=== PATIENT | female | born 1940 | race Caucasian/White ===

== ENCOUNTER 2016-11-30 08:54 | Inpatient (IN) | payer MEDICARE, OTHER ==
[2016-11-26 13:12] VITALS: BMI 27.0
--- NOTE | 2016-11-26 14:04 | PAT Medication Instructions ---
Service Date November 26, 2016. Current Home Medication List Acetaminophen (Tylenol Arthritis Ext Rel), 650 MG PO Q8H PRN for Pain Aspirin (Aspirin Ec), 81 MG PO QAM Calcium Carbonate-Vitamin D (Oscal 500/200 D-3), 1 TAB PO AFTER LUNCH Cholecalciferol (Vitamin D3), 1 TAB PO AFTER LUNCH Fish Oil (Winlock-3), 1 CAP PO Jyxghueizvk-Msxprvoavdm-Pdwqdb (Glucosamine Chondroitin M), 2 TAB PO AFTER LUNCH Lactase (Lactaid Fast Act), 1 TAB PO Levothyroxine Sodium (Levothyroxine Sodium), 1 TAB PO QAM Losartan Potassium & Hydrochlo (Losartan Potassium/Hydroc), 1 TAB PO QAM Multiple Vitamins W/ Minerals (Centrum Silver 50+Women), 1 TAB PO AFTER LUNCH Pantoprazole (Protonix), 40 MG PO QAM Paroxetine (Paxil), 10 MG PO UD Ranitidine Hcl (Zantac), 300 MG PO HS Simvastatin (Zocor), 10 MG PO QPM Tramadol-Acetaminophen (Ultracet), 1 TAB PO [id number] PRN for Pain [Arnica Cream ], Unknown Dose [Winlock Xl], Unknown Dose Medication Instructions For Your Scheduled Surgery - Hold the following medications as of today 11/26/16: Fish Oil (Winlock-3), 1 CAP PO [Winlock Xl], Unknown Dose Jejgamtwgol-Swhrvvvjntf-Xawfqu (Glucosamine Chondroitin M), 2 TAB PO AFTER LUNCH - Hold the following medications 24 hours prior to surgery: [Arnica Cream ], Unknown Dose - Hold the following medications the morning of surgery: Multiple Vitamins W/ Minerals (Centrum Silver 50+Women), 1 TAB PO AFTER LUNCH Losartan Potassium & Hydrochlo (Losartan Potassium/Hydroc), 1 TAB PO QAM Cholecalciferol (Vitamin D3), 1 TAB PO AFTER LUNCH Lactase (Lactaid Fast Act), 1 TAB PO Calcium Carbonate-Vitamin D (Oscal 500/200 D-3), 1 TAB PO AFTER LUNCH - Take the following medications the morning of surgery with a sip of water OTHERWISE NOTHING TO EAT OR DRINK AFTER MIDNIGHT: Acetaminophen (Tylenol Arthritis Ext Rel), 650 MG PO Q8H PRN for Pain (may take if needed up to 4 hours prior to surgery) Tramadol-Acetaminophen (Ultracet), 1 TAB PO [id number] PRN for Pain (may take if needed up to 4 hours prior to surgery) Pantoprazole (Protonix), 40 MG PO QAM Levothyroxine Sodium (Levothyroxine Sodium), 1 TAB PO QAM Aspirin (Aspirin Ec), 81 MG PO QAM Paroxetine (Paxil), 10 MG PO UD - Take the following medications as scheduled the night before surgery: Acetaminophen (Tylenol Arthritis Ext Rel), 650 MG PO Q8H PRN for Pain Ranitidine Hcl (Zantac), 300 MG PO HS Simvastatin (Zocor), 10 MG PO QPM If you have any questions please call us at [phone] or [phone] or [phone]
[2016-11-26 14:17] LABS: BASO % 0.5 %; BASO ABS # 0.03 K/uL (0-0.2); COMPLETE YES; EOS % 3.8 %; HEMATOCRIT 36.2 % (37-47); IG% 0.4 %; LYMPH ABS # 0.94 K/uL (1.2-3.4); MEAN CELL VOLUME 85.2 fL (80-100); MEAN CORPUSCULAR HEMOGLOBIN 27.3 pg (25-34); MEAN PLATELET VOLUME 9.6 fL (7.4-10.4); MONO % 8.2 %; NEUT % 70.1 %; PLATELET COUNT 292 K/uL (130-400); RED BLOOD COUNT 4.25 M/uL (4.2-5.4); WHITE BLOOD COUNT 5.52 K/uL (4.8-10.8)
[2016-11-26 14:27] LABS: INR 0.9 (0.9-1.1)
[2016-11-26 15:51] LABS: BUN/CREATININE RATIO 17.1 (10-20); CALCIUM 9.5 mg/dl (8.5-10.1); CREATININE 0.94 mg/dl (0.60-1.20); POTASSIUM 4.1 mmol/L (3.5-5.1)
--- NOTE | 2016-11-27 23:16 | HISTORY & PHYSICAL EXAMINATION ---
DATE OF ADMISSION: 11/30/2016 CHIEF COMPLAINT: Left knee pain. HISTORY OF PRESENT ILLNESS: A 76-year-old white female, long-term patient of my partner Dr. Sorto; who presents for surgical treatment of her left knee. She has got a long history of left knee pain and discomfort. I saw her a couple of years ago and we discussed treatment options. She has been through extensive conservative treatment. Most of her pain is medial and anteromedial side of her knee. The more she walks, the more it hurts. The shots have provided very minimal relief recently. She has become more debilitated by the pain. She has a limited walking tolerance. She would like to have her left knee fixed surgically. PAST MEDICAL HISTORY: 1. Hypertension. 2. Elevated cholesterol. 3. Anxiety/depression. 4. Hypothyroidism. 5. Gastroesophageal reflux disease. 6. Mild obesity. PAST SURGICAL HISTORY: 1. Cholecystectomy. 2. Right knee scope. 3. Tonsillectomy. 4. Cataract removal. ALLERGIES: LATEX WHICH CAUSES A RASH. ALSO, DESCRIBES ALLERGY TO NOVOCAIN, BUT JUST THAT IT HAS PROLONGED ANESTHETIC EFFECTS. No adverse or allergic reaction. CURRENT MEDICINES: 1. Levothyroxine 50 mcg in the morning. 2. Pantoprazole 40 mg p.o. before breakfast. 3. Losartan/hydrochlorothiazide 50/12.5 once a day. 4. Simvastatin 10 mg at bedtime. 5. Ranitidine 300 mg at bedtime. 6. Paroxetine 10 mg in the morning. 7. Tramadol for pain. 8. Aspirin 81 mg. 9. Tylenol Arthritis. 10. Centrum Silver. 11. Oscal. 12. Vitamin D3. 13. Unspecified medicine. 14. [place] XL. SOCIAL HISTORY: A 76-year-old female, she is . Her is undergoing some medical evaluation for dizziness. FAMILY HISTORY: Noncontributory. REVIEW OF SYSTEMS: Negative for diabetes, neurologic problems, vascular problems, bleeding disorders. Denies any chest pain or shortness of breath. No history of DVT or PE. PHYSICAL EXAMINATION: GENERAL: Reveals a healthy pleasant elderly female. She looks younger than her stated age. HEENT: Benign. NECK: Supple. No lymphadenopathy. LUNGS: Clear to auscultation. HEART: Regular rate and rhythm. ABDOMEN: Soft, nontender, nondistended. EXTREMITIES: Grossly neurovascularly intact except as follows: Examination of the left knee reveals patient walks with slightly antalgic gait. She has got varus alignment to her left knee. She has got bony hypertrophy medially. Range of motion is 5-120. No instability. Small knee effusion. X-RAY: X-rays of the left knee reviewed. It shows advanced left knee DJD. She has complete loss of her medial joint space. She has got osteophytes particularly in the medial femoral condyle and medial tibial plateau. She has got some chondrocalcinosis laterally. She does have degenerative changes in all 3 compartments. ASSESSMENT: A 76-year-old white female with advanced left knee degenerative joint disease. She has failed conservative treatment and would like to proceed with knee replacement. PLAN: We are going to take her to the operating room and do left knee replacement. The risks and benefits of this procedure were explained to patient including but not limited to DVT, PE, , infection, neurologic injury, vascular injury, bleeding problem, pain, limited range of motion, stiffness, failure to relief symptoms, incomplete relief of symptoms, need for further surgery in the future, fracture, leg length inequality, nerve palsy, persistent pain, etc. The patient understands and desires to proceed. Informed consent was obtained. As far as discharge plans, she is planning to be discharged to home. Her can assist in her care and she will use [facility]. I did talk to her about trying to limit her tramadol use. KADID
[~2016-11-30] VITALS: Ht 160 cm; Wt 70.4 kg
[2016-11-30] VITALS (8 sets, daily range): BP systolic 115–195; BP diastolic 63–77; PULSE 50–63; TEMP 36.4–37.7; O2SAT 96–100; Ht 160 cm; Wt 70.4 kg
[~2016-11-30 08:54] MED LIST: ACET1TAB84 PO; ACETAMINOPHEN 500 MG TAB PO SCH; ARNICA; ASPI81TA28 PO; BUPIVACAINE 0.25% 30 ML VIAL ONE; BUPIVACAINE 0.5 % 5 MG/1 ML PF 10ML VIAL ONE; BUPIVACAINE LIPOSOME 266 MG, BUPIVACAINE/EPINEPHRINE INJ 50 ML, SODIUM CHLORIDE 0.9% PF... INFIL SCH; CALC200T PO; CEFAZOLIN 2000 MG/60 ML D5W 60 ML IV SCH; FAMOTIDINE 20 MG TAB PO SCH; GABAPENTIN 300 MG CAP PO SCH; GLUCTAB54 PO; LACTATED RINGER'S 1000ML 1,000 ML IV SCH; LACTATED RINGER'S 1000ML 500 ML IV ONE; LACTATED RINGER'S 1000ML IV SCH; LEVO50TA6 PO; LOSA100T30 PO; METOCLOPRAMIDE HCL 10 MG TAB PO SCH; MULT-1092 PO; OMEG10007 PO; OMEGA XL; PANT40TA PO; PARO1TAB27 PO; RANI300T2 PO; SCOPOLAMINE 1.5 MG TDSY TD SCH; SIMV10TA2 PO; TRAM37.52 PO; TRANEXAMIC ACID INJ 1,000 MG in SODIUM CHLORIDE 0.9% 100ML 100 ML IV SCH; VTMD1000 PO; [UNRECOGNIZED DRUG - CODE] PO
--- NOTE | 2016-11-30 10:53 | History & Physical Bridge Note ---
H&P Re-Evaluation Bridge Note: I have examined the patient, reviewed the History & Physical and in the interval since the performance of the History & Physical I have noted the following changes of clinical significance: No changes noted
[2016-11-30] MEDS ORDERED: MIDAZOLAM HCL 1 MG/ML 2ML VIAL ONE ×3 (11:53→14:00)
[2016-11-30] MEDS ORDERED: FENTANYL CITRATE INJ 50 MCG/1 ML 2 ML VIAL ONE (11:54)
[2016-11-30] MEDS ORDERED: SODIUM CHLORIDE 0.9% PF 50 ML VIAL ONE (12:48)
[2016-11-30] MEDS ORDERED: BACITRACIN 50000 UNIT VIAL ONE (12:48)
[2016-11-30] MEDS ORDERED: BUPIVACAINE/EPINEPHRINE 0.25% 1:200,000 30 ML VIAL ONE (12:48)
[2016-11-30] MEDS ORDERED: BUPIVACAINE LIPOSOME 1/3% 266 MG/20 ML VIAL INFIL ONE (12:48)
[2016-11-30] MEDS ORDERED: HYDROmorphone INJ 2 MG/ML SYR/VIAL IV PRN (13:00)
[2016-11-30] MEDS ORDERED: EpHEDrine SULFATE INJ 50 MG/ML AMP IV PRN (13:00)
[2016-11-30] MEDS ORDERED: ATROPINE SULFATE 0.1 MG/ML 5ML SYR IV PRN (13:00)
[2016-11-30] MEDS ORDERED: PHENYLEPHRINE 100MCG/ML 5ML SYR IV PRN (13:00)
[2016-11-30] MEDS ORDERED: ONDANSETRON INJ 2 MG/ML 2 ML VIAL IV PRN ×2 (13:00→14:45)
--- NOTE | 2016-11-30 14:41 | [facility] Post Operative Brief Note ---
Immediate Operative Summary Operative Date November 30, 2016. Pre-Operative Diagnosis Left Knee Degenerative Joint Disease Post-Operative Diagnosis Same as preop Procedure(s) Performed Left Total Knee Arthroplasty Surgeon Dr. Rodriguez Director Cardiology Surgeon(s) Carson Pennington PA-C Estimated Blood Loss 50 ml Findings Left Knee DJD Fluids (cc crystalloids) 900 cc Specimens A. Left Knee Bone and Tissue Drains None Anesthesia Spinal Complication(s) None Disposition Recovery Room / PACU
[2016-11-30] MEDS ORDERED: MAGNESIUM HYDROXIDE SUSP 30 ML UDC PO PRN (14:45)
[2016-11-30] MEDS ORDERED: METOCLOPRAMIDE HCL INJ 5 MG/ML 2 ML VIAL IV PRN (14:45)
[2016-11-30] MEDS ORDERED: BISACODYL 10 MG SUPP PR PRN (14:45)
[2016-11-30] MEDS ORDERED: ALUMINUM/MAGNESIUM/SIMETH (MAALOX MAX) 30 ML UDC PO PRN (14:45)
[2016-11-30] MEDS ORDERED: CALCIUM CARBONATE VITAMIN D PO SCH (14:45)
[2016-11-30] MEDS ORDERED: SILVER SULFADIAZINE 1% CR 50 GM JAR EXT PRN (14:45)
[2016-11-30] MEDS ORDERED: HYDROmorphone INJ 1 MG/ML SYR IV PRN (14:45)
[2016-11-30] MEDS ORDERED: ZOLPIDEM TARTRATE 5 MG TAB PO PRN (14:45)
[2016-11-30] MEDS ORDERED: PAROXETINE 20 MG TAB PO PRN (14:45)
--- NOTE | 2016-11-30 15:19 | DIAGNOSTIC IMAGING REPORT ---
LEFT KNEE 1 OR 2 VIEWS ROUTINE CLINICAL HISTORY: AP/LATERAL IN PACU LEFT KNEE joint replacement COMPARISON: None. DISCUSSION: Evidence for a total left knee replacement. Good contact between prosthetic and underlying bone. Expected postoperative soft tissue change. IMPRESSION: Anatomic alignment status post total left knee replacement Electronically signed by: Ramana Montoya M.D. 11/30/2016 3:18 PM Dictated Date/Time: 11/30/2016 3:17 PM
--- NOTE | 2016-11-30 15:19 | Anesthesiology Progress Note ---
Anesthesia Post Op Note Date & Time November 30, 2016 at 15:19 Vital Signs Pain Intensity: 0 Vital Signs Past 12 Hours Date Time Temp Pulse Resp B/P Pulse Ox O2 Delivery O2 Flow Rate FiO2 11/30/16 15:05 49 13 148/68 100 Nasal Cannula 2 11/30/16 14:55 64 20 133/48 99 Mask 10 11/30/16 14:48 36.3 44 14 156/64 99 Mask 10 11/30/16 09:25 36.7 60 20 195/67 98 Room Air Notes Mental Status: alert / awake / arousable, participated in evaluation Pt Amnestic to Procedure: Yes Nausea / Vomiting: adequately controlled Pain: adequately controlled Airway Patency, RR, SpO2: stable & adequate BP & HR: stable & adequate Hydration State: stable & adequate Neuraxial Anesthesia: was administered, sensory block is resolving Anesthetic Complications: no major complications apparent
[2016-11-30] MEDS: CHECK SCOPOLAMINE PATCH PLACEMENT SCH (16:02)
[2016-11-30] MEDS: D5W AND 1/2NSS + 20MEQ KCL 1,000 ML IV SCH (16:13)
[2016-11-30] MEDS ORDERED: PNEUMOCOCCAL POLYSACCHARIDES 25 MCG/0.5 ML VIAL/SYR IM. ONE (17:15)
[2016-11-30] MEDS ORDERED: PNEUMOCOCCAL ADMINISTRATION CHARGE ONE (17:15)
[2016-11-30] MEDS: FERROUS GLUCONATE 324 MG TAB PO SCH (17:51)
[2016-11-30] MEDS: KETOROLAC TROMETHAMINE 15 MG/ML VIAL IV. SCH (17:51)
[2016-11-30] MEDS: ACETAMINOPHEN 500 MG TAB PO SCH (17:52)
--- NOTE | 2016-11-30 18:14 | OPERATIVE REPORT ---
DATE OF OPERATION: 11/30/2016 SURGEON: Isiah Rodriguez MD ELEMENTARY SUPERVISOR: ANA Celis PREOPERATIVE DIAGNOSIS: Left knee degenerative joint disease. POSTOPERATIVE DIAGNOSIS: Same. PROCEDURE PERFORMED: Left cemented posterior stabilized total knee arthroplasty. COMPLICATIONS: None. ESTIMATED BLOOD LOSS: 50 mL. FLUID REPLACEMENT: 900 mL crystalloid fluid replacement. TOURNIQUET TIME: 55 minutes at 300 mmHg. ANESTHESIA: Spinal with adductor canal block. DRAINS: None. SPECIMENS: Left knee sent for pathology. OPERATIVE INDICATIONS: The patient is a 76-year-old very active female who has had a long history of left knee pain and discomfort. She has been treated by my partner Dr. Sorto over the years with medicines and injections. This became less successful over time. She has been more debilitated by her knee. She had x-rays which showed advanced arthritis and she elected to proceed with operative treatment. OPERATIVE FINDINGS: Operative findings revealed advanced left knee DJD. She had grade 4 lhui-oy-bnja disease of the entire medial compartment as well as the patellofemoral compartment. She did have fairly spotty grade 3 and 4 changes in the lateral compartment. She did have very rotated femur with a very large lateral trochlear groove. She had a large knee joint effusion and very osteoporotic cancellous bone. OPERATIVE IMPLANTS: Operative implants consisted of: 1. A Biomet Vanguard size 67.5 left posterior stabilized femoral component. 2. A Biomet size 67 tibial tray. 3. A 10 mm posterior stabilized polyethylene bearing. 4. A 31 x 8 all poly patella. OPERATIVE PROCEDURE: The patient was taken to the operating room, identified and placed on the operating table in supine position. All contact areas were appropriately padded. IV antibiotics were provided by anesthesia team. A spinal anesthetic and adductor canal block had been provided in the holding area. Garzon catheter was placed in sterile fashion. Left thigh tourniquet was then placed and left lower extremity was then prepped and draped in the usual sterile fashion. The left leg was elevated and exsanguinated with Esmarch and tourniquet was placed at 300 mmHg. An anterior approach of the left knee was then performed through a longitudinal incision centered over the patella. Sharp dissection was carried out through the subcutaneous tissues down to the level of the extensor mechanism. A medial parapatellar arthrotomy incision was made. Some subperiosteal dissection was carried out medially. The fat pad was resected from beneath the patellar tendon. The lateral patellofemoral ligament was released. The patella was everted and knee was flexed. The osteophytes were taken off the distal femur. The ACL and PCL were then released from the distal femur and the tibia subluxated anteriorly. The external tibial alignment jig was then placed in the anterior face of the tibia and adjusted 14 mm medially. Proximal tibial cut was made to remove about 2 mm of bone from the most deficient aspect of the medial tibial plateau. The tibia was then sized to a size 67. Her bone was pretty osteoporotic. We did remove some medial and posteromedial osteophytes. Attention was then drawn to the femur. The distal femur was entered with a sharp drill bit. Intramedullary canal was suctioned. A left 5 degree valgus cutting guide was placed. The distal femoral cutting block was pinned in place. Distal femoral cut was made to take an additional 3 mm of bone off the distal femur. The femur was then sized to a size 67.5. We did downsize this almost the entire size due to very narrow medial and lateral dimensions of the femur. The AP cutting guide was then placed. Femur was fairly rotated and placed to about 8 degrees of external rotation and brought out through the posterior condyles. The anterior cut, anterior chamfer, posterior cut, posterior chamfer cuts were made. Box cutting guide was placed and adjusted slightly lateral and the box cut was made. The knee was flexed. The remnants of the medial and lateral menisci were excised. The osteophytes were taken off the posterior aspect of the femur. Trial femoral component was placed. Tibial tray was pinned in maximum external rotation and drill and stem punch were used to create defect in proximal tibia for the tibial tray. The knee was then trialed and a 10 mm insert fit most appropriately. I did try the 12, but it was just a little bit tight in extension particularly. Attention was then drawn to the patella. The patella was cleaned of all soft tissues. Patella thickness measured 20 mm in thickness and was cut down to 13. It was sized to a size 31 patella. Lug holes were drilled for a 31 patella. The lateral osteophyte was removed. Patella button was placed. Knee was taken through range of motion and the patella tracked nicely with no thumbs test. Attention was then drawn toward placement of permanent components. All trial components were removed. A bone plug was placed in the distal femur to limit blood loss. A double batch of Palacos G cement was mixed. A left size 67.5 posterior stabilized femoral component, a size 67 tibial tray, a 10 mm posterior stabilized polyethylene insert, and a 31 x 8 all poly patella then cemented in place. Knee was brought out into full extension until cement hardened. A final cement check was then performed. Pericapsular tissues were injected with 100 mL of a combination of 20 mL of Exparel, 30 mL of normal saline, 50 mL of 0.25% Marcaine with epinephrine. The patient did receive 1 gram of tranexamic acid. The tourniquet was then let down for final tourniquet time of 55 minutes. Hemostasis was assured with use of electrocautery. The extensor mechanism was then closed with a combination of #1 PDS suture and #1 Vicryl suture in a [id number] fashion. Extensor mechanism was checked and found to be intact. Subcutaneous tissues were then closed with 2-0 Dexon suture in a buried interrupted fashion. Skin was closed skin maulik. Leg was then cleaned and dried and a sterile dressing of Xeroform, 4 x 4, sterile cast padding was applied. The patient was then transferred to the recovery room in stable condition. The patient tolerated the procedure well with no complications. All needle and sponge counts were correct at the end of the operation. I attest to the content of the Intraoperative Record and any orders documented therein. Any exceptio ns are noted below.
[2016-11-30] MEDS ORDERED: TRANEXAMIC ACID INJ 1,000 MG in SODIUM CHLORIDE 0.9% 100ML 100 ML IV SCH (20:00)
[2016-11-30] MEDS: ASPIRIN 325 MG ECTAB PO SCH (21:01)
[2016-11-30] MEDS: SIMVASTATIN 10 MG TAB PO SCH (21:02)
[2016-11-30] MEDS: DOCUSATE SODIUM 100 MG CAP PO SCH (21:02)
[2016-11-30] MEDS: CEFAZOLIN IV 1,000 MG in DEXTROSE 5% 50ML 50 ML IV SCH (21:37)
[2016-12-01] MEDS: CHECK SCOPOLAMINE PATCH PLACEMENT SCH ×3 (00:07→15:54)
[2016-12-01] MEDS: ACETAMINOPHEN 500 MG TAB PO SCH ×3 (01:34→17:53)
[2016-12-01] MEDS: D5W AND 1/2NSS + 20MEQ KCL 1,000 ML IV SCH ×2 (01:34→12:00)
[2016-12-01 03:55] VITALS: BP 116/72; PULSE 55; TEMP 36.8; O2SAT 97
[2016-12-01] MEDS: LEVOTHYROXINE 50 MCG TAB PO SCH (06:05)
[2016-12-01] MEDS: CEFAZOLIN IV 1,000 MG in DEXTROSE 5% 50ML 50 ML IV SCH (06:05)
[2016-12-01] MEDS: KETOROLAC TROMETHAMINE 15 MG/ML VIAL IV. SCH ×4 (06:05→17:52)
[2016-12-01 07:32] LABS: HEMATOCRIT 29.8 % (37-47); MEAN CELL VOLUME 85.6 fL (80-100); MEAN CORPUSCULAR HEMOGLOBIN 27.3 pg (25-34); MEAN CORPUSCULAR HGB CONC 31.9 g/dl (32-36); PLATELET COUNT 231 K/uL (130-400); RED BLOOD COUNT 3.48 M/uL (4.2-5.4); WHITE BLOOD COUNT 8.46 K/uL (4.8-10.8)
[2016-12-01 07:55] VITALS: BP 110/83; PULSE 64; TEMP 36.5; O2SAT 96
[2016-12-01 08:05] LABS: BUN/CREATININE RATIO 14.8 (10-20); CREATININE 1.1 mg/dl (0.60-1.20); POTASSIUM 4.1 mmol/L (3.5-5.1)
[2016-12-01 08:18] LABS: CALCIUM 8.1 mg/dl (8.5-10.1)
--- NOTE | 2016-12-01 08:43 | PROGRESS NOTE ---
DATE: 12/01/2016 DATE: 12/01/2016. SUBJECTIVE: A 76-year-old white female postop day 1 from a left knee replacement. She is doing quite well. Pain is controlled. She is getting around the room reasonably well. Denies any chest pain or shortness of breath. OBJECTIVE: VITAL SIGNS: Temperature is 36.5. Vital signs stable. PHYSICAL EXAMINATION: GENERAL: Healthy, pleasant, elderly female. She was walking out of the bathroom to sit in a chair when I saw her and doing pretty well with a walker. LUNGS: Clear to auscultation. HEART: Regular rate and rhythm. ABDOMEN: Soft, nontender, nondistended. EXTREMITY EXAMINATION: Grossly neurovascularly intact except as follows: Examination of the left lower extremity reveals the dressing to be clean, dry and intact. She can do a straight leg raise with little bit of a lag. She can dorsiflex and plantarflex her foot appropriately. She is neurologically intact. LABORATORY DATA: Hemoglobin 9.5. Hematocrit 29.8. Electrolytes are stable. ASSESSMENT: A 76-year-old white female postop day 1 from a left knee replacement, doing pretty well. Pain is controlled. She is getting around quite well. She is anemic, but asymptomatic. PLAN: 1. DVT prophylaxis including thigh-high TEDs, SCDs, and aspirin twice a day. 2. PT and OT. Weight bear as tolerated. Left total knee protocol. 3. Pain control. Doing pretty well with current pain regimen. 4. Disposition. She is hoping to be discharged to home with some home health once adequately recovered.
[2016-12-01] MEDS ORDERED: PANTOprazole SOD 40 MG TAB PO SCH (09:00)
[2016-12-01] MEDS: DOCUSATE SODIUM 100 MG CAP PO SCH ×2 (09:10→20:14)
[2016-12-01] MEDS: FERROUS GLUCONATE 324 MG TAB PO SCH ×3 (09:10→17:52)
[2016-12-01] MEDS: ASPIRIN 325 MG ECTAB PO SCH ×2 (09:11→20:16)
[2016-12-01] MEDS: CHOLECALCIFEROL 1000 INTER.UNIT TAB PO SCH (09:11)
[2016-12-01] MEDS: MULTIVITAMIN TAB PO SCH (09:11)
[2016-12-01] MEDS: CEROVITE ADV FORMULA TAB PO SCH (09:12)
[2016-12-01] MEDS: PANTOprazole SOD 40 MG TAB PO SCH (09:12)
[2016-12-01 10:02] VITALS: O2SAT 93
[2016-12-01 11:45] VITALS: BP 132/55; PULSE 72; TEMP 36.6; O2SAT 99
[2016-12-01] MEDS ORDERED: NURSING VERBAL MED ORDER ONE (14:00)
[2016-12-01 15:16] VITALS: BP 128/64; PULSE 72; TEMP 36.6; O2SAT 98
[2016-12-01] MEDS: TRAMADOL HCL 50 MG TAB PO PRN ×2 (15:53→20:13)
[2016-12-01] MEDS: SIMVASTATIN 10 MG TAB PO SCH (20:16)
[2016-12-01] MEDS ORDERED: RANITIDINE HCL 150 MG TAB PO SCH (21:00)
[2016-12-01] MEDS ORDERED: ULT50X PO (21:06)
[2016-12-01] MEDS ORDERED: FRRG PO (21:06)
[2016-12-01] MEDS ORDERED: ACET-1138 PO (21:06)
[2016-12-01] MEDS ORDERED: ASPEC325 PO (21:06)
--- NOTE | 2016-12-01 21:09 | Discharge Instructions ---
Discharge Instructions Date of Service December 01, 2016. Admission Reason for Admission: Left Knee Degenerative Joint Disease Discharge Discharge Diagnosis / Problem: Left Knee Replacement Discharge Goals Goal(s): Decrease discomfort, Improve function, Increase independence, Improve disease control, Therapeutic intervention Activity Recommendations Activity Limitations: per Instructions/Follow-up section Weightbearing Status: Left weightbearing . Instructions / Follow-Up Instructions / Follow-Up ACTIVITY RECOMMENDATIONS: Physical Therapy: * You will go to physical therapy three times each week for four to six weeks after your surgery in order to regain your knee range of motion and to retrain your knee to work properly. * It is just as important to make sure you are getting your knee perfectly straight as it is to regain your knee bend. * Taking a pain pill an hour before therapy can help you have a more productive and comfortable therapy session. Home Exercise: * You were shown a series of exercises (heel props, heel slides, etc.) in the hospital. Do these exercises three to four times each day including the exercises you were shown in physical therapy. Walking: * Get up and walk several times each day. For the first four weeks, try not to stand or walk for more than one hour at a time. If you do stand or walk for more than one hour, you will not hurt anything, but your knee and leg will likely swell. * As you feel comfortable, you may change from the walker or crutches to a cane and then to independent walking. MEDICATIONS: New Medicine: * You will likely be taking one or more of these medications: 1. Tramadol - A quick and shorter-acting pain medication. Take one to two tablets every four to six hours to lessen your pain. 2. Iron Sulfate - Take three times each day for the month after surgery to help you replace the blood lost during surgery. 3. Aspirin - Thins your blood to lessen the chance of forming a blood clot. * The most common side effects of pain medicine and iron are nausea and constipation. If nausea or constipation is too much of a problem or if you have any questions about your new medicines or doses, call [facility] at . We will try to help you manage these issues. VERY IMPORTANT TO READ AND REVIEW" Pain: * The immediate post-operative period after knee replacement surgery is often quite painful. * You are given a prescription for pain medicine. You should take it, as directed, when you need it, especially before physical therapy and before going to bed. Pain that interferes with sleep is very common and can last several months. * You will likely need pain medicine for the first four to six weeks. It will not stop all of the pain. The pain will lessen and as you feel better, you may change to milder pain medicine such as Tylenol. * The most common side effects of pain medicine are nausea and constipation, so don't take more than you need. SPECIAL CARE INSTRUCTIONS: TEDs/Elastic Stockings: * The white elastic stockings help limit swelling and prevent blood clots from forming in your legs. The more you wear them, the more they work. * Wear them for six weeks after knee replacement surgery and four weeks after partial knee replacement. Prevention of Infection: * Take antibiotics one hour before any dental cleaning, dental work, urological procedure, gastrointestinal procedure or any invasive surgery in order to prevent your new joint from getting infected. * You may get the antibiotics from the doctor performing the procedure or you may call our office at before and we will call in a prescription to the pharmacy of your choice. Things to Watch For: * Drainage from the incision site that occurs more than one week after your surgery. * Severely increased knee/leg pain or swelling. * Increased redness at the incision site. * Fever above 102 degrees Fahrenheit. * Unusual chest pain or shortness of breath. * Unusual pain or burning with urination. Call [facility] at with any of the above problems or if you have any questions about your medicines or recovery. FOLLOW UP VISIT: Make an appointment to see your doctor for approximately two weeks after surgery for a progress check and staple removal by calling the office at . Current Hospital Diet Patient's current hospital diet: Regular Diet Discharge Diet Recommended Diet: Regular Diet Procedures Procedures Performed: Left Total Knee Arthroplasty Pending Studies Studies pending at discharge: no Medical Emergencies . Who to Call and When: Medical Emergencies: If at any time you feel your situation is an emergency, please call [phone] immediately. . Non-Emergent Contact Non-Emergency issues call your: Surgeon . "Provider Documentation" section prepared by Isiah Rodriguez. . VTE Core Measure Inpt VTE Proph given/why not?: Other Anticoagulation, T.E.D. Stockings, SCD's
[2016-12-01 23:05] VITALS: BP 152/79; PULSE 83; TEMP 37; O2SAT 98
[2016-12-02] MEDS: CHECK SCOPOLAMINE PATCH PLACEMENT SCH
[2016-12-02] MEDS: KETOROLAC TROMETHAMINE 15 MG/ML VIAL IV. SCH ×2 (00:09→06:02)
[2016-12-02] MEDS: ACETAMINOPHEN 500 MG TAB PO SCH ×2 (02:00→10:22)
[2016-12-02 05:55] VITALS: BP 117/69; PULSE 77; TEMP 36.7; O2SAT 98
[2016-12-02] MEDS: LEVOTHYROXINE 50 MCG TAB PO SCH (06:02)
[2016-12-02] MEDS: CHOLECALCIFEROL 1000 INTER.UNIT TAB PO SCH (08:27)
[2016-12-02] MEDS: PANTOprazole SOD 40 MG TAB PO SCH (08:27)
[2016-12-02] MEDS: FERROUS GLUCONATE 324 MG TAB PO SCH (08:27)
[2016-12-02] MEDS: DOCUSATE SODIUM 100 MG CAP PO SCH (08:28)
[2016-12-02] MEDS: CEROVITE ADV FORMULA TAB PO SCH (08:30)
[2016-12-02] MEDS: MULTIVITAMIN TAB PO SCH (08:30)
[2016-12-02] MEDS ORDERED: HCTZ PO SCH (09:00)
[2016-12-02] MEDS ORDERED: LOSARTAN PO SCH (09:00)
--- NOTE | 2016-12-02 09:22 | PROGRESS NOTE ---
DATE: 12/02/2016 SUBJECTIVE: A 76-year-old white female postop day #2 from a left knee replacement. She is doing pretty well. She feels like she overdid a little bit yesterday and more sore last night, but doing better this morning. No chest pain or shortness of breath. Not feeling dizzy or lightheaded. OBJECTIVE: VITAL SIGNS: Temperature 36.7. Vital signs stable. PHYSICAL EXAMINATION: GENERAL: Shows a pleasant elderly female. She is sitting up in bed and looks pretty comfortable. LUNGS: Clear to auscultation. HEART: Regular rate and rhythm. ABDOMEN: Soft, nontender, and nondistended. EXTREMITIES: Grossly neurovascularly intact except as follows: Examination of the left lower extremity reveals the dressing to be clean, dry and intact. Maybe just a trace bit of bloody drainage. She can dorsiflex and plantarflex her foot appropriately. Her thigh is soft and supple. Calf is soft and supple. ASSESSMENT: A 76-year-old white female postop day #2 from a left knee replacement, doing pretty well. Pain seems to be controlled. A little bit of bloody drainage, which is not expected. She is neurologically intact. PLAN: 1. DVT prophylaxis including thigh-high TEDs, SCDs, and aspirin twice a day. 2. PT/OT. Weightbearing as tolerated. Left total knee protocol. 3. Pain control, doing pretty well with current pain regimen. 4. Disposition: Plan to discharge to home with some home health once adequately recovered.
[2016-12-02] MEDS: ASPIRIN 325 MG ECTAB PO SCH (10:18)
[2016-12-02] MEDS ORDERED: ACETAMINOPHEN 500 MG TAB PO ONE (10:22)
[2016-12-02 11:02] VITALS: BP 117/69; PULSE 77; TEMP 36.7; O2SAT 98
--- NOTE | 2016-12-06 15:26 | DISCHARGE SUMMARY ---
ADMITTING PHYSICIAN AND SURGEON: Dr. Rodriguez. ADMITTING DIAGNOSIS: Left knee degenerative joint disease. SURGERY PERFORMED: Left total knee arthroplasty. SECONDARY DIAGNOSES: Hypertension, elevated cholesterol, anxiety, depression, hypothyroidism, gastroesophageal reflux disease, mild obesity. CONSULTS: None obtained. HISTORY AND PHYSICAL EXAMINATION: Well documented in the patient's chart. HOSPITAL COURSE: The patient was admitted on 11/30/2016 underwent total knee arthroplasty, tolerated the procedure well. There were no complications and transferred to the PACU postoperatively and later to the orthopedic floor for further care. She was given Ancef for antibiotic prophylaxis, JOSE stockings, SCDs and aspirin for DVT prophylaxis. Hemoglobin, hematocrit and vital signs were monitored during her hospital stay and remained stable. She developed some postoperative anemia, did not require any blood transfusions. There were no complications. By postoperative day 2, she was tolerating a regular diet. Pain was controlled with oral pain medicine. She was participating in physical therapy and had no signs or symptoms of deep vein thrombosis. On postoperative day 2, she was discharged home and set up with home health services, given printed discharge instructions including extra strength Tylenol, aspirin 325 mg b.i.d., iron supplement and tramadol. Continue home medications except for the home dose of aspirin and tramadol, which were changed. Continue physical therapy, weightbearing as tolerated. JOSE stockings. Follow up with Dr. Rodriguez in 10-12 days or sooner if there are any problems or concerns.
[2017-04-16] MEDS ORDERED: LACT9000 PO (09:38)
[2017-04-16] MEDS ORDERED: ACET-1256 PO (09:38)
[2017-04-16] MEDS ORDERED: HYZ/50125 PO (09:38)
[2017-04-16] MEDS ORDERED: CYAN10005 PO (09:38)
[2017-04-16] MEDS ORDERED: TRAMTAB5 PO (09:38)
[2017-04-16] MEDS ORDERED: [UNRECOGNIZED DRUG - CODE] PO (09:38)
[2017-04-16] MEDS ORDERED: PARO1TAB27 PO (09:38)
[2017-04-16] MEDS ORDERED: ASPCH81X PO (09:38)
== END 2016-12-02 11:54 | disposition home health service (06) | DRG 470 ==
LOC: ENRESERVDT → ENRESERVTM → C.ACU 08:54 → C.MSW 14:46
PROVIDERS: ADMIT Orthopaedic Surgery Sports Medicine; ATTEND Orthopaedic Surgery Sports Medicine
PROC: 0SRD0J9 Replacement of Left Knee Joint with Synthetic Substitute, Cemented, Open Approach (ICD-10-PCS; principal; 2016-11-30 11:00)
DX: M17.12 Unilateral primary osteoarthritis, left knee (principal); I10 Essential (primary) hypertension; K21.9 Gastro-esophageal reflux disease without esophagitis; E03.9 Hypothyroidism, unspecified; F32.9 Major depressive disorder, single episode, unspecified; Z79.82 Long term (current) use of aspirin; Z79.899 Other long term (current) drug therapy

== ENCOUNTER → 2017-01-02 | Outpatient (CLI) | payer MEDICARE ==
[~2017-01-02] MED LIST changes: +ACET-1138 PO; +ACET-1256 PO; -ACETAMINOPHEN 500 MG TAB PO SCH; +ASPCH81X PO; +ASPEC325 PO; -ASPI81TA28 PO; -BUPIVACAINE 0.25% 30 ML VIAL ONE; -BUPIVACAINE 0.5 % 5 MG/1 ML PF 10ML VIAL ONE; -BUPIVACAINE LIPOSOME 266 MG, BUPIVACAINE/EPINEPHRINE INJ 50 ML, SODIUM CHLORIDE 0.9% PF... INFIL SCH; -CEFAZOLIN 2000 MG/60 ML D5W 60 ML IV SCH; +CYAN10005 PO; -FAMOTIDINE 20 MG TAB PO SCH; +FRRG PO; -GABAPENTIN 300 MG CAP PO SCH; +HYZ/50125 PO; +LACT9000 PO; -LACTATED RINGER'S 1000ML 1,000 ML IV SCH; -LACTATED RINGER'S 1000ML 500 ML IV ONE; -LACTATED RINGER'S 1000ML IV SCH; -METOCLOPRAMIDE HCL 10 MG TAB PO SCH; -SCOPOLAMINE 1.5 MG TDSY TD SCH; -TRAM37.52 PO; +TRAMTAB5 PO; -TRANEXAMIC ACID INJ 1,000 MG in SODIUM CHLORIDE 0.9% 100ML 100 ML IV SCH; +ULT50X PO; +[UNRECOGNIZED DRUG - CODE] PO
--- NOTE | 2017-01-03 09:05 | MAMMOGRAPHY REPORT ---
BILATERAL DIGITAL SCREENING MAMMOGRAM WITH CAD: 01/02/2017 CLINICAL HISTORY: Routine screening. Patient has no complaints. TECHNIQUE: Current study was also evaluated with a Computer Aided Detection (CAD) system. Bilateral CC and MLO views were obtained. COMPARISON: Comparison is made to exams dated: 10/25/2010 mammogram, 04/20/2010 mammogram - [facility], and 03/31/2009. BREAST COMPOSITION: There are scattered areas of fibroglandular density in both breasts. FINDINGS: There is an irregular 13 mm mass seen within the left upper outer quadrant posteriorly wit h associated calcifications, for which spot compression tomosynthesis views and spot magnification vi ews and possible ultrasound are recommended for further evaluation. There is a possible other 10 mm mass within the left upper outer quadrant and questionable architectural distortion seen within the l eft upper outer quadrant, for which spot compression tomosynthesis views and possible breast ultrasou nd are recommended. Additionally, there are faint calcifications seen within the right lateral breas t at approximately 9 to 10:00, for which spot magnification views are recommended. The remainder of both breasts are stable compared to prior exams, without suspicious masses, calcific ations, or areas of architectural distortion noted. A biopsy marker clip is again noted in the left lower inner quadrant. IMPRESSION: ACR BI-RADS CATEGORY 0: INCOMPLETE EVALUATION: NEED ADDITIONAL IMAGING EVALUATION Left breast masses and questionable architectural distortion and right breast calcifications, for whi ch additional imaging evaluation is recommended. The patient will be called to schedule an appointme nt. Approximately 10% of breast cancers are not detected with mammography. A negative mammographic report should not delay biopsy if a clinically suggestive mass is present. Jing Oakley M.D. ah/:01/02/2017 15:53:45 Transportation Driver: Mili GALEAS(Cele)(Danya)([place]), [facility] letter sent: Addl Imaging 0 BI-RADS Code: ACR BI-RADS Category 0: Incomplete Evaluation: Need Additional Imaging Evaluation
== END | disposition home or self-care (01) ==
LOC: C.MAMM 13:17
PROVIDERS: ATTEND Obstetrics & Gynecology
DX: Z12.31 Encounter for screening mammogram for malignant neoplasm of breast (principal); N63 Unspecified lump in breast

== ENCOUNTER → 2017-01-11 | Outpatient (CLI) | payer MEDICARE ==
[~2017-01-11] MED LIST changes: -LOSA100T30 PO; +LOSA100T66 PO
[2017-01-11 14:43] LABS: BASO % 0.6 %; BASO ABS # 0.04 K/uL (0-0.2); COMPLETE YES; EOS % 7.3 %; HEMATOCRIT 34.8 % (37-47); IG% 0.2 %; LYMPH % 16.7 %; LYMPH ABS # 1.06 K/uL (1.2-3.4); MEAN CELL VOLUME 86.6 fL (80-100); MEAN CORPUSCULAR HEMOGLOBIN 27.1 pg (25-34); MEAN CORPUSCULAR HGB CONC 31.3 g/dl (32-36); MEAN PLATELET VOLUME 9.8 fL (7.4-10.4); MONO % 7.7 %; NEUT % 67.5 %; PLATELET COUNT 363 K/uL (130-400); RED BLOOD COUNT 4.02 M/uL (4.2-5.4); WHITE BLOOD COUNT 6.34 K/uL (4.8-10.8)
[2017-01-11 15:14] LABS: ALT/SGPT 17 U/L (12-78); AST/SGOT 10 U/L (15-37); BLOOD UREA NITROGEN 16 mg/dl (7-18); BUN/CREATININE RATIO 14.5 (10-20); CALCIUM 9.4 mg/dl (8.5-10.1); CARBON DIOXIDE 27 mmol/L (21-32); CHLORIDE 104 mmol/L (98-107); GLUCOSE 108 mg/dl (70-99); POTASSIUM 3.3 mmol/L (3.5-5.1); SODIUM 139 mmol/L (136-145)
[2017-01-11 15:24] LABS: ALB/GLOB RATIO 1.3 (0.9-2); ALKALINE PHOSPHATASE 81 U/L (45-117); THYROID STIMULATING HORMONE 0.874 uIu/ml (0.300-4.500)
--- NOTE | 2017-02-11 13:52 | CODING QUERY MEDICAL NECESSITY ---
SUPPORTING DIAGNOSIS NEEDED Amos VILLAGOMEZ, A supporting diagnosis is required for the test/procedure performed on this patient in order for us to be reimbursed by the patient's insurance. Please provide a supporting diagnosis for the following test/procedure listed below next to the test name along with your signature. *If there is no additional diagnosis for this patient that would support the following test/procedure please document that below next to the test/procedure. Test(s)/Procedure(s) that require a supporting diagnosis: * ([id number]) VITAMIN D ASSAY DIAGNOSIS: DATE OF SERVICE: 01/11/17 Provider Signature: Date: Thank you Ronnell Davis [facility] Information Management Once completed, please kindly fax back to [phone] For questions please call [phone]
== END | disposition home or self-care (01) ==
LOC: C.LAB1850 13:40
PROVIDERS: ATTEND Physician Assistant Medical
DX: F41.9 Anxiety disorder, unspecified (principal); N63 Unspecified lump in breast; R53.83 Other fatigue

== ENCOUNTER → 2017-01-11 | Outpatient (CLI) | payer MEDICARE ==
--- NOTE | 2017-01-11 15:23 | MAMMOGRAPHY REPORT ---
BILATERAL DIGITAL DIAGNOSTIC MAMMOGRAM TOMOSYNTHESIS WITH CAD AND TARGETED LEFT ULTRASOUND: 01/11/2017 CLINICAL HISTORY: Callback from screening mammogram for bilateral breast abnormalities. TECHNIQUE: Breast tomosynthesis in addition to standard 2D mammography was performed. Current study was also evaluated with a Computer Aided Detection (CAD) system. Bilateral CC and MLO tomosynthesis images including C views and bilateral spot magnification CC and ML views were obtained. COMPARISON: Comparison is made to exams dated: 01/02/2017 mammogram - [facility], mammogram, 04/20/2010 mammogram - [facility], 10/03/2009 mammogram, 9, and 03/31/2009. BREAST COMPOSITION: There are scattered areas of fibroglandular density in both breasts. FINDINGS: Additional images demonstrate an irregular spiculated mass with associated calcifications in the left lateral breast at approximately 3:00, measuring approximately 13 x 19 mm. The other prev iously described nodular asymmetry in the left upper outer quadrant is less prominent on the addition al views, without a discrete mass noted on the tomosynthesis images. No clear architectural distorti on is noted on the additional images. Spot magnification views of the right breast demonstrate coars e heterogeneous and punctate calcifications which are regionally distributed within the right upper o uter quadrant, without a focal cluster of micro calcifications noted. Calcifications have been seen in this region on multiple prior exams including the 2012 and 2011 exams although the calcifications are more conspicuous which may be due to technical differences. The remainder of both breasts demons trate no suspicious masses, calcifications, or areas of architectural distortion. Targeted ultrasound was performed of the region of the mammographic mass. In the left breast at 4:00 , 8 mm from the nipple, there is an irregular hypoechoic mass which measures 11 x 10 x 8 mm. This co rresponds with the spiculated mammographic mass and is highly suspicious. Targeted ultrasound was pe rformed of the left upper outer quadrant in the region of the asymmetry, which shows mildly prominent ducts throughout the left upper outer quadrant without a clear mass seen. Ultrasound of left axilla demonstrates morphologically normal left axillary lymph nodes without evidence of axillary adenopath y. IMPRESSION: ACR BI-RADS CATEGORY 5: HIGHLY SUGGESTIVE OF MALIGNANCY, TARGETED ULTRASOUND ACR BI-RADS CATEGORY 5: HIGHLY SUGGESTIVE OF MALIGNANCY 1. Irregular hypoechoic 11 mm mass with associated calcifications in the left 4:00 breast. The mass is highly suspicious and ultrasound-guided core needle biopsy is recommended for further evaluation. 2. An asymmetry within the left upper outer quadrant is less prominent on the additional views, with out a clear suspicious mass noted on ultrasound. If pathology results of the left breast biopsy are malignant, consider preoperative bilateral breast MRI to evaluate the asymmetry and rule out the poss ibility of multifocal/multicentric disease. 3. No suspicious cluster of calcifications in the right breast. The patient has been verbally notified of the results. She tentatively scheduled the biopsy before l eaving the department. Approximately 10% of breast cancers are not detected with mammography. A negative mammographic report should not delay biopsy if a clinically suggestive mass is present. Jing Oakley M.D. ah/:01/11/2017 14:51:39 Webmethods Architect: Diana Carter, [facility] letter sent: Abnormal 4/5 BI-RADS Code: ACR BI-RADS Category 5: Highly Suggestive Of Malignancy Ultrasound BI-RADS: ACR BI-RAD S Category 5: Highly Suggestive Of Malignancy
== END | disposition home or self-care (01) ==
LOC: C.MAMM 13:56
PROVIDERS: ATTEND Obstetrics & Gynecology
DX: N63 Unspecified lump in breast (principal)

== ENCOUNTER → 2017-01-22 | Outpatient (CLI) | payer MEDICARE ==
--- NOTE | 2017-01-22 10:03 | Discharge Instructions ---
Discharge Instructions Procedure Procedure Date: Jan 22, 2017. Reason for visit: Left Mass--Allergy To Novacaine. Discharge Discharge Date: Jan 22, 2017. Discharge Diagnosis: post left breast ultrasound guided core biopsy Medications Restart Stopped Medication(s): May restart Aspirin tomorrow Instructions Activity Recommendations: Additional Limitations (see below) Return to School/Work: no limitations Recommended Home Diet: No Limitations Provider Instructions: ACTIVITY RECOMMENDATIONS: * No lifting, pushing, pulling or exercising the affected side for three days. RETURN TO SCHOOL/WORK: * You may return to work/school after the procedure, but do not perform any strenuous activities for 24 to 48 hours. MEDICATIONS: * Tylenol (two 325 mg) every four to six hours if needed for mild pain (if not allergic to Tylenol). DIET: * Resume previous diet. SPECIAL CARE INSTRUCTIONS: * Keep biopsy site dry for 24 hours. May shower after 24 hours, but do not soak (bathe) incision. * May remove Tegaderm (plastic patch) tomorrow AFTER showering. * Leave the steri-strips on for one week. Allow the steri-strips to fall off by themselves. If not off after one week, you may remove them. You may place a Bandaid crosswise over the strips, if desired. * Apply ice 10 minutes on and 10 minutes off as needed. * Wear a bra at bedtime to sleep more comfortably for 2-3 days. * Your referring physician should have the results after approximately 5 to 7 business days. * Call for unusual bleeding, fever, drainage, etc or if you have any questions call [phone] during normal business hours or after hours call Dr Sparks, . FOLLOW UP VISIT: Follow-up with Referring Physician as scheduled. Allergies Coded Allergies: NSAIDs (Verified Allergy, Severe, RENAL FAILURE, 11/30/16) Adhesives (Verified Allergy, Unknown, RASH, 11/30/16) Latex1 -Allergic Contact Dermititis (Verified Allergy, Unknown, RASH, 11/30) Procaine (Verified Allergy, Unknown, prolonged effect, 11/30/16) Leeann Barrientos Recommendations: Call your doctor if: * Temperature above 101 degrees * Pain not relieved by pain medicine ordered * There is increased drainage or redness from any incision * You have any unanswered questions or concerns. Your Doctors Instructions noted above were prepared by provider Marcela L. Clare. Patient Signature Section: Patient Instructions Signature Page Kari Nelson Patient (or Guardian) Signature/Date: I have read and understand the instructions given to me by my caregivers. Caregiver/RN/Doctor Signature/Date: The above-named patient and/or guardian has received patient instructions on this date. + Original Patient Signature Page (only) stays with chart. Please make copy for patient.
--- NOTE | 2017-01-22 13:52 | MAMMOGRAPHY REPORT ---
THIS REPORT HAS BEEN AMENDED. ULTRASOUND GUIDED BIOPSY LEFT BREAST: 01/22/2017 CLINICAL HISTORY: Indeterminate irregular hypoechoic 10 mm mass in the 4:00 left breast. Patient pre sents for ultrasound-guided core needle biopsy. COMPARISON: Comparison is made to exams dated: 01/11/2017 ultrasound, 01/11/2017 mammogram, 01/02/2017 mammogram - [facility], 10/25/2010 mammogram, 04/20/2010 mammogram - [facility], and 10/03/2009 mammogram. PATIENT CONSENT: The procedure, risks and benefits were discussed with the patient and informed writt en consent was obtained. Specific risks to this procedure include: bleeding, infection, puncture of a djacent structure, nontarget biopsy, sampling error, pain, metal allergy and medication reaction. Th e patient reported a Novocain allergy and therefore core Chloroprocaine was utilized as local anesthe deann. PROCEDURE DESCRIPTION: Prior to the biopsy, repeat targeted ultrasound was performed in the left uppe r outer quadrant. 10 mm hypoechoic solid mass is again seen in the 4:00 axis. Nodular hypoechoic ti ssue without evidence of a discrete mass is seen in the upper outer quadrant 2:00 to 3:00 axes. This could correspond with the focal asymmetry seen mammographically but there is no evidence of a discre te measurable mass. The decision was made to biopsy the mass in the 4:00 axis and pending pathology results try to obtain an MRI to assess for any abnormal enhancement in the left upper outer quadrant which could correspond with the asymmetry. A time out was performed and the left breast was agreed as the site of biopsy. The skin was prepped a nd draped in the usual sterile fashion. The irregular hypoechoic solid mass in the 4:00 left breast w as chosen as the target for biopsy. Subcutaneous and intraparenchymal chloroprocaine was administered as local anesthesia. A skin incision was made. Through the incision, 3 ribbon shaped samples were t aken with a 14 gauge Achieve biopsy device. A metallic marker was placed at the biopsy site. Hemostas is was achieved after manual compression. The patient tolerated the procedure well and there was no i mmediate complication. The samples were sent to the pathology department in an appropriately labeled container. Postprocedure left CC and ML tomosynthesis images were obtained. A new ribbon-shaped metallic biopsy marker is seen within the mammographic mass in question, in the 4:00 posterior left breast. An "R" shaped biopsy marker clip is present in the lower inner quadrant of the middle one third of the left breast, from remote benign biopsy. No significant postbiopsy hematoma is identified. IMPRESSION: ULTRASOUND GUIDED BIOPSY Status post ultrasound-guided core needle biopsy of a suspicious solid mass at the 4:00 left breast, with ribbon shaped metallic biopsy marker placed at the site. The patient will receive notification of the biopsy results from her referring physician. Marcela Sparks M.D. ay/:01/22/2017 10:25:59 Rnfa: Shirin CLANCY)(Danya), [facility] AMENDMENT: 01/29/2017 Marcela Sparks M.D. 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 The pathology results are concordant with the imaging appearance. Given the concordant finding of DCIS and also a subtle focal asymmetry measuring approximately 4 x 6 cm in the upper outer middle one third of the left breast that is anterior to the biopsied mass, woul d recommend a bilateral breast MRI to assess extent of disease, and exclude the possibility of additi onal left breast DCIS.
--- NOTE | 2017-01-22 13:54 | MAMMOGRAPHY REPORT ---
UNILATERAL LEFT DIGITAL DIAGNOSTIC MAMMOGRAM TOMOSYNTHESIS: 01/22/2017 CLINICAL HISTORY: Status post ultrasound-guided core biopsy of an indeterminate irregular hypoechoic solid mass in the 4:00 left breast. Please refer to the report from left breast ultrasound-guided core biopsy performed at the same time for full detail. IMPRESSION: POST PROCEDURE IMAGING FOR MARKER PLACEMENT Please refer to the report from left breast ultrasound-guided core biopsy performed at the same time for full detail. Approximately 10% of breast cancers are not detected with mammography. A negative mammographic report should not delay biopsy if a clinically suggestive mass is present. Marcela Sparks M.D. ay/:01/22/2017 10:21:45 Casting Plug Assembler: Shirin CLANCY)(Danya), [facility] BI-RADS Code: Post Procedure Imaging For Marker Placement
== END | disposition home or self-care (01) ==
LOC: C.MAMM 08:57
PROVIDERS: ATTEND Obstetrics & Gynecology
DX: N63 Unspecified lump in breast (principal)

== ENCOUNTER → 2017-02-21 | Outpatient (CLI) | payer MEDICARE ==
--- NOTE | 2017-02-21 15:10 | DIAGNOSTIC IMAGING REPORT ---
LEFT BREAST LYMPHOSCINTIGRAPHY INJECTION CLINICAL HISTORY: Left breast carcinoma COMPARISON STUDY: No previous studies for comparison. FINDINGS: A timeout was performed 5 perilesional intradermal injections were performed utilizing a total dose of 0.5 mCi of technetium 99m Lymphoseek Lymph node localization will be performed in the OR. IMPRESSION: A left breast lymphoscintigraphy injection was performed. Electronically signed by: Rah Giordano M.D. 02/21/2017 3:08 PM Dictated Date/Time: 02/21/2017 3:07 PM
== END | disposition home or self-care (01) ==
LOC: C.NUCL 13:29
PROVIDERS: ATTEND Surgery
DX: C50.912 Malignant neoplasm of unspecified site of left female breast (principal)

== ENCOUNTER → 2017-11-15 | Outpatient (CLI) | payer MEDICARE ==
[~2017-11-15] MED LIST changes: -ACET-1138 PO; -ACET1TAB84 PO; -ARNICA; -ASPEC325 PO; -FRRG PO; -LOSA100T66 PO; -OMEG10007 PO; -OMEGA XL; -ULT50X PO
[2017-11-15 09:35] LABS: BASO % 0.5 %; BASO ABS # 0.03 K/uL (0-0.2); EOS % 6.1 %; EOS ABS # 0.39 K/uL (0-0.5); HEMATOCRIT 38.9 % (37-47); HEMOGLOBIN 12.5 g/dL (12.0-16.0); IG# 0.04 K/uL (0.00-0.02); LYMPH % 17.3 %; LYMPH ABS # 1.11 K/uL (1.2-3.4); MEAN CELL VOLUME 84.6 fL (80-100); MEAN CORPUSCULAR HEMOGLOBIN 27.2 pg (25-34); MEAN CORPUSCULAR HGB CONC 32.1 g/dl (32-36); MEAN PLATELET VOLUME 9.8 fL (7.4-10.4); MONO % 6.4 %; MONO ABS # 0.41 K/uL (0.11-0.59); NEUT % 69.1 %; NEUT ABS # 4.42 K/uL (1.4-6.5); PLATELET COUNT 252 K/uL (130-400); RED CELL DISTRIBUTION WIDTH CV 14.8 % (11.5-14.5); RED CELL DISTRIBUTION WIDTH SD 45.8 fL (36.4-46.3)
[2017-11-15 10:09] LABS: ALBUMIN 3.7 gm/dl (3.4-5.0); ALT/SGPT 18 U/L (12-78); AST/SGOT 10 U/L (15-37); BLOOD UREA NITROGEN 20 mg/dl (7-18); CARBON DIOXIDE 31 mmol/L (21-32); CHOLESTEROL 183 mg/dl (0-200); CREATININE 0.97 mg/dl (0.60-1.20); GLUCOSE 103 mg/dl (70-99); SODIUM 137 mmol/L (136-145)
[2017-11-15 10:19] LABS: ALKALINE PHOSPHATASE 79 U/L (45-117); LDL CHOLESTEROL CALCULATED 93 mg/dl; TOTAL PROTEIN 6.7 gm/dl (6.4-8.2)
== END | disposition home or self-care (01) ==
LOC: C.LAB1850 08:47
PROVIDERS: ATTEND Internal Medicine Pulmonary Disease
DX: I10 Essential (primary) hypertension (principal); E78.00 Pure hypercholesterolemia, unspecified; E03.9 Hypothyroidism, unspecified; C50.919 Malignant neoplasm of unspecified site of unspecified female breast

== ENCOUNTER 2021-01-31 10:23 | Observation (INO) ==
--- NOTE | 2021-01-13 10:57 | PAT Medication Instructions ---
Medication Instructions Date of Service January 13, 2021 Home Medications Medication Instructions Recorded simvastatin 20 mg tablet 20 mg PO QPM #90 tab 11/16/20 lactase See Rx Instructions PO .COMPLEX omega-3 fatty acids 500 mg capsule 1,000 mg PO QDL acetaminophen 500 mg tablet 500 mg PO Q6H PRN calcium carbonate 500 mg (1,250 mg)-vitamin D3 200 unit tablet 1 tab PO QDL cyanocobalamin (vitamin B-12) 500 mcg tablet 1,000 mcg PO QDL lactobacillus combination no.8 3 billion cell capsule 3,000 mmu cells PO DAILY melatonin 5 mg capsule 5 mg PO HS PRN cetirizine 10 mg tablet 5 mg PO DAILY PRN simvastatin 20 mg tablet 20 mg PO QPM famotidine 20 mg tablet 20 mg PO DAILY PRN jgwdwrtlvcq-hxa-qftxudlnl-hrb 149-hyalur 500 mg-500 mg-66.7 mg tablet 1 tab PO QDL multivit with lxvgqyvz-owbc-MM-lutein 8 mg iron-400 mcg-300 mcg tablet 1 tab PO QDL vitamins A,C,G-xhfx-qjyksn 14,320 unit-226 mg-200 unit capsule 1 cap PO BID clindamycin HCl 1 dose PO UD PRN exemestane [Aromasin] 25 mg PO QDL fluoxetine 20 mg PO QAM fluticasone propionate 2 sprays INTNAS QAM hydrochlorothiazide 50 mg PO DAILY PRN levothyroxine 50 mcg PO QAM losartan 50 mg PO QAM Continue as directed exemestane [Aromasin] 25 mg PO QDL (unless surgeon directs otherwise) clindamycin HCl 1 dose PO UD PRN (if needed) STOP taking 2 weeks before surgery hmauonrhpeo-cbr-ykgpndnnm-hrb 149-hyalur 500 mg-500 mg-66.7 mg tablet 1 tab PO QDL multivit with bchexunf-bfmn-AN-lutein 8 mg iron-400 mcg-300 mcg tablet 1 tab PO QDL vitamins A,C,C-ynip-atqakh 14,320 unit-226 mg-200 unit capsule 1 cap PO BID omega-3 fatty acids 500 mg capsule 1,000 mg PO QDL DO NOT take the morning of surgery hydrochlorothiazide 50 mg PO DAILY PRN losartan 50 mg PO QAM cetirizine 10 mg tablet 5 mg PO DAILY PRN calcium carbonate 500 mg (1,250 mg)-vitamin D3 200 unit tablet 1 tab PO QDL cyanocobalamin (vitamin B-12) 500 mcg tablet 1,000 mcg PO QDL lactobacillus combination no.8 3 billion cell capsule 3,000 mmu cells PO DAILY lactase See Rx Instructions PO .COMPLEX Take morning of surgery With a small sip of water, OTHERWISE NOTHING TO EAT OR DRINK AFTER MIDNIGHT: fluoxetine 20 mg PO QAM fluticasone propionate 2 sprays INTNAS QAM levothyroxine 50 mcg PO QAM famotidine 20 mg tablet 20 mg PO DAILY PRN (if needed) acetaminophen 500 mg tablet 500 mg PO Q6H PRN (okay to take up to 4 hours prior to surgery if needed) Take evening before surgery lactase See Rx Instructions PO .COMPLEX (if needed) acetaminophen 500 mg tablet 500 mg PO Q6H PRN (if needed) melatonin 5 mg capsule 5 mg PO HS PRN (if needed) cetirizine 10 mg tablet 5 mg PO DAILY PRN (if needed) simvastatin 20 mg tablet 20 mg PO QPM famotidine 20 mg tablet 20 mg PO DAILY PRN (if needed) Other Notes If you have any questions please call us at [phone] or [phone] or [phone] or [phone]
--- NOTE | 2021-01-18 09:26 | Anesthesiology Consultation ---
Date of Service January 18, 2021 Assessment & Plan (1) Encounter for pre-operative examination: Chart Review Chart Review: Acceptable Risk for Surgery (pending cardio clearance and preop Covid testing ) and Patient seen in Pre Admission Testing Will set up cardio clearance- secondary new onset murmur, EKG changes, pt due for routine cardiac follow up (last seen 04/2020- needed follow up in six months). Pt scheduled for carido appt 01/23/21- pt informed and voices understanding Pt does get mild SOB when laying flat on back- feels secondary to claustrophobic Per PAT appt on 01/18/21, no recent travel. No known Covid positive contacts or Covid related symptoms. No known Covid infection in the past 90 days. Preop Covid testing scheduled 01/27/21 = will await results. Educated on importance of self quarantining, social distancing and wearing mask in public both for the patient after Covid testing done. Pt vaccinated for Covid. Consults Requested cardiac (scheduled 01/[address] Koch ) Teaching & Discussion Pre-Anesthesia Teaching/Discussion Notes: Instructed NPO after midnight before surgery,except medications with 15 cc of water. Medication instructions provided according to the PAT guidelines. History Surgery Operation Date: 01/31/21 07:00 Proposed Procedures p Right Total Knee Arthroplasty - Isiah Rodriguez MD Height/Weight Height: 5 ft 1.5 in Weight: 77 kg Allergies Allergy/AdvReac Type Severity Reaction Status Date / Time NSAIDS (Non-Steroidal Allergy Severe RENAL Verified 01/12/20 09:08 Anti-Inflamma FAILURE adhesive Allergy Unknown RASH Verified 01/12/20 09:08 latex Allergy Unknown RASH Verified 01/12/20 09:08 procaine Allergy Unknown prolonged Verified 01/11/21 15:37 effect amoxicillin AdvReac Diarrhea Verified 01/11/21 16:02 Medications Home Medications Medication Instructions Recorded Confirmed Last Taken lactase See Rx Instructions PO .COMPLEX 03/23/19 01/11/21 Unknown omega-3 fatty acids 500 mg capsule 1,000 mg PO QDL cap 05/05/19 01/11/21 Unknown acetaminophen 500 mg tablet 500 mg PO Q6H PRN 12/18/19 01/11/21 Unknown calcium carbonate 500 mg (1,250 1 tab PO QDL tab 12/18/19 01/11/21 Unknown mg)-vitamin D3 200 unit tablet cyanocobalamin (vitamin B-12) 500 1,000 mcg PO QDL tab 12/18/19 01/11/21 Unknown mcg tablet lactobacillus combination no.8 3 3,000 mmu cells PO DAILY 12/18/19 01/11/21 Unknown billion cell capsule melatonin 5 mg capsule 5 mg PO HS PRN cap 12/18/19 01/11/21 Unknown cetirizine 10 mg tablet 5 mg PO DAILY PRN 04/08/20 01/11/21 Unknown simvastatin 20 mg tablet 20 mg PO QPM #90 tab 11/16/20 01/11/21 Unknown famotidine 20 mg tablet 20 mg PO DAILY PRN 12/20/20 01/11/21 Unknown thfuixealdw-naj-nhkvyumkt-hrb 1 tab PO QDL tab 12/20/20 01/11/21 Unknown 149-hyalur 500 mg-500 mg-66.7 mg tablet multivit with 1 tab PO QDL 12/20/20 01/11/21 Unknown pdbutkby-kcyk-IL-lutein 8 mg iron-400 mcg-300 mcg tablet vitamins A,C,I-cakc-uuinif 14,320 1 cap PO BID 12/20/20 01/11/21 Unknown unit-226 mg-200 unit capsule clindamycin HCl 1 dose PO UD PRN 01/11/21 01/11/21 Unknown exemestane [Aromasin] 25 mg PO QDL 01/11/21 01/11/21 Unknown fluoxetine 20 mg PO QAM 01/11/21 01/11/21 Unknown fluticasone propionate 2 sprays INTNAS QAM 01/11/21 01/11/21 Unknown levothyroxine 50 mcg PO QAM 01/11/21 01/11/21 Unknown losartan 50 mg PO QAM 01/11/21 01/11/21 Unknown hydrochlorothiazide 25 mg tablet 50 mg PO DAILY PRN #60 tab 01/13/21 Unknown Past Medical History Medical History (Updated 01/18/21 @ 15:05 by Christie Cao PA-C) Cardiac murmur New onset Last stress ECHO 2018- showed no significant heart valve abnormalities GERD (gastroesophageal reflux disease) Well controlled and stable History of breast cancer Dx 2017; h/o lumpectomy + radiation No current issues Hypercholesterolemia Hypertension Hypothyroidism Laceration of right lower leg S/p laceration to right distal LE- 15 stitches (since removed) Dr. Rodriguez aware LVH (left ventricular hypertrophy) follows with Dr. Koch Osteoarthritis Overactive bladder Exercise / Class Metabolic Activity II 4-5 Yardwork/Stairs/Walk up hill (one flight of stairs - no chest pain or SOB ) Past Family History Family History Unknown Aortic aneurysm Past Surgical History Surgical History History of breast biopsy History of cholecystectomy History of colonoscopy History of left knee replacement History of lumpectomy of left breast History of right knee surgery History of tonsillectomy and adenoidectomy Past Anesthesia History No Hx of Anesthesia Complications and No Family Hx of Anesthesia Complications History of PONV No Hx of PONV and No Hx of Motion Sickness Social History Smoking Status: Never smoker Do You Dip or Chew Tobacco: No Hx Alcohol Use: Yes Alcohol type: wine alcohol intake frequency: holidays/special occasions only Hx Substance Use: No substance use type: does not use Review of Systems Edema - to right LE- on diuretic - unsure if secondary to ongoing knee arthritis or recent LE laceration- no signs of ceullitis Patient denies chest pain, shortness of breath, dyspnea on exertion, cough, wheezing, palpitations. No hx of seizures, stroke, LA, apnea/snoring. No hx of blood clots or blood transfusions Physical Exam Vital Signs VITALS BP 122/68 P 68 TEMP 98.2 SP02 98% RESP 16 Constitutional no acute distress ENMT Mouth: no TMJ clicking Thyromental Distance: > or= 3.5 Finger Breadths (3.5) Mallampati Class: III Permanent implant and caps to molars and side teeth Neck + limited neck extension (mild ) Respiratory normal respiratory effort; no respiratory distress Auscultation: lungs clear to auscultation bilaterally; no wheezes Cardiovascular Rate/Rhythm: regular rate and regular rhythm Heart Sounds: + murmur (II/ murmur ) Vessels: no carotid bruit Musculoskeletal Spine: no pain with cervical ROM Extremities: extremities normal to inspection Psychiatric Orientation: alert Lab Results Anesthesia Preop Results Results Anesthesia Widget: WBC 5.29 K/uL (4.8-10.8) 01/18/21 Hgb 11.8 g/dL (12.0-16.0) L 01/18/21 Hct 37.0 % (37-47) 01/18/21 Plt 281 K/uL (130-400) 01/18/21 Na 137 mmol/L (136-145) 01/09/21 K 3.8 mmol/L (3.5-5.1) 01/09/21 Cl 103 mmol/L (98-107) 01/09/21 CO2 30 mmol/L (21-32) 01/09/21 BUN 24 mg/dl (7-18) H 01/09/21 Creat 0.88 mg/dl (0.6-1.2) 01/09/21 Glucose Level 93 mg/dl (70-99) 01/09/21 PT 9.9 Seconds (9.0-12.0) 01/18/21 PTT 26.0 Seconds (21.0-31.0) 01/18/21 INR 1.0 (0.9-1.1) 01/18/21 Urine Color Yellow 01/09/21 Urine Appearance Clear (Clear) 01/09/21 Urine pH 6.0 (4.5-7.5) 01/09/21 Urine Specific [place] 1.020 (1.000-1.030) 01/09/21 Urine Protein Negative (Negative) 01/09/21 Urine Glucose (UA) Negative (Negative) 01/09/21 Urine Ketones Negative (Negative) 01/09/21 Urine Blood Negative (Negative) 01/09/21 Urine Nitrite Negative (Negative) 01/09/21 Urine Bilirubin Negative (Negative) 01/09/21 Urine Urobilinogen Negative (Negative) 01/09/21 Urine Leukocyte Esterase Negative (Negative) 01/09/21 Blood Type O Positive 01/18/21 Antibody Screen NEGATIVE 01/18/21 Testing Electrocardiogram Date: 01/18/21 Findings: + NSR @ (60bpm) ST & T wave abnormality, consider anterolateral ischemia. When compared to EKG from December 09, 2003- ST now depressed in lateral leads, nonspecific T wave abnormality improved in inferior leads, T wave inversion no evident in anterior leads, QT has lengthened per cardio. Chest X-Ray Date: 01/18/21 Findings: + NAD Mild eventration of the right hemidiaphragm. Stress Test Date: 01/22/19 Resting EF: 60-70% Valvular Disease: no significant valvular disease Negative exercise stress echocardiogram for ischemia at 87% MPHR. ST segment changes following exercise meet diagnostic criteria for ischemia. However, the diminish specificity is diminished by the baseline ST segment abnormalities. Resting echocardiogram with normal left ventricular systolic function. Moderate concentric LVH. Mild right ventricular hypertrophy. Mild left atrial dilation. Compared to stress echocardiogram performed May 15, 2016there has been no significant interval change in the rest or stress echo images.
[~2021-01-31 10:23] MED LIST changes: -ACET-1256 PO; +ACETAMINOPHEN 500 MG TAB PO SCH; -ASPCH81X PO; +BUPIVACAINE 0.5 % 5 MG/1 ML PF 10ML VIAL ONE; +BUPIVACAINE LIPOSOME/PF 266 MG, BUPIVACAINE/EPINEPHRINE 50 ML, SODIUM CHLORIDE 0.9% 30 ... INFIL SCH; -CALC200T PO; -CYAN10005 PO; +FAMOTIDINE 20 MG TAB PO SCH; +GABAPENTIN 300 MG CAP PO SCH; -GLUCTAB54 PO; -HYZ/50125 PO; -LACT9000 PO; -LEVO50TA6 PO; +LR 500ML BOLUS, THEN 15ML/HR IV SCH; +LR 60ML/HR IV SCH; -MULT-1092 PO; -PANT40TA PO; -PARO1TAB27 PO; -RANI300T2 PO; +ROPIVACAINE 0.5% 5 MG/ML 30 ML VIAL ONE; -SIMV10TA2 PO; -TRAMTAB5 PO; +TRANEXAMIC ACID 1,000 MG **IV Intra-op IV SCH; -VTMD1000 PO; -[UNRECOGNIZED DRUG - CODE] PO; -[UNRECOGNIZED DRUG - CODE] PO; +ceFAZolin 2000MG 2,000 MG/15 ML SYR IV SCH
[2021-01-31] MEDS ORDERED: MIDAZOLAM HCL 1 MG/ML 2ML VIAL ONE (11:26)
[2021-01-31] MEDS ORDERED: HYDROmorphone INJ 1 MG/ML SYRINGE IV PRN (12:19)
[2021-01-31] MEDS ORDERED: ONDANSETRON INJ 2 MG/ML 2 ML VIAL IV PRN ×2 (12:19→17:23)
[2021-01-31] MEDS ORDERED: ePHEDrine sulfate 50 MG/ML AMP IV PRN (12:19)
[2021-01-31] MEDS ORDERED: ATROPINE SULFATE 0.1 MG/ML 10ML SYR IV PRN (12:19)
[2021-01-31] MEDS ORDERED: SODIUM CHLORIDE 0.9% PF 50 ML VIAL ONE (13:38)
[2021-01-31] MEDS ORDERED: BUPIVACAINE LIPOSOME 1.3% 266 MG/20 ML VIAL ONE (13:38)
[2021-01-31] MEDS ORDERED: BUPIVACAINE 0.25% 30 ML VIAL ONE (13:39)
[2021-01-31] MEDS ORDERED: EPINEPHrine INJ 1 MG/ML AMP ONE (13:39)
--- NOTE | 2021-01-31 13:44 | History & Physical Bridge Note ---
Date of Service January 31, 2021 History & Physical Bridge Note I have examined the patient, reviewed the History & Physical and in the interval since the performance of the History & Physical I have noted the following changes of clinical significance: no changes noted
[2021-01-31] MEDS ORDERED: VANCOMYCIN HCL 1000MG/20ML VIAL ONE (13:58)
[2021-01-31] MEDS ORDERED: PROPOFOL IV EMULSION 10 MG/ML 20 ML VIAL IV ONE (14:15)
[2021-01-31] MEDS ORDERED: MEPERIDINE HCL 25 MG/ML CARP/VIAL IV PRN (16:14)
--- NOTE | 2021-01-31 16:23 | XRay Report ---
XR knee RT 1 or 2V routine CLINICAL HISTORY: Surgical Post Op COMPARISON: 12/28/2020 DISCUSSION: There are postsurgical changes of a total right knee arthroplasty and patellar resurfacin g. The lateral view is slightly obliqued. The femoral tibial components appear well seated. There are overlying skin maulik. There is an overlying drain. There is gas within soft tissues consistent wit h recent surgery. IMPRESSION: Postsurgical changes of a total right knee arthroplasty. ACT 112: Negative or not required by law. Electronically signed by: Rah Giordano M.D. 01/31/2021 4:22 PM
--- NOTE | 2021-01-31 16:30 | Anesthesiology Progress Note ---
Date of Service January 31, 2021 Anesthesia Post Procedure Vital Signs Vital Signs: Temp Pulse Pulse Resp BP Pulse Ox 01/31/21 16:25 58 L 22 153/73 H 94 01/31/21 16:15 67 19 159/76 H 95 01/31/21 16:05 76 14 182/71 H 94 01/31/21 15:52 97.2 F L 77 22 169/73 H 100 01/31/21 11:07 97.9 F 87 20 156/69 H 97 Pain Intensity Right Knee: Pain Intensity: 8 Transfer of Care Handoff Completed per policy Notes Mental Status: alert / awake / arousable and participated in evaluation Patient Amnestic to Procedure: Yes Nausea / Vomiting: adequately controlled Pain: adequately controlled Airway Patency, RR, SpO2: stable & adequate BP & HR: stable & adequate Hydration State: stable & adequate Neuraxial Anesthesia: was administered and sensory block is resolving Anesthetic Complications: no major complications apparent and Pt Satisfied with anesthetic care
[2021-01-31] MEDS ORDERED: MAGNESIUM HYDROXIDE SUSP 30 ML UDC PO PRN (17:23)
[2021-01-31] MEDS ORDERED: hydroCHLOROthiazide 25 MG TAB PO PRN (17:23)
[2021-01-31] MEDS ORDERED: NALOXONE HCL 0.4 MG/1 ML VIAL/CARP IV PRN (17:23)
[2021-01-31] MEDS ORDERED: METOCLOPRAMIDE HCL INJ 5 MG/ML 2 ML VIAL IV PRN (17:23)
[2021-01-31] MEDS ORDERED: CETIRIZINE HCL 10 MG TABLET PO PRN (17:23)
[2021-01-31] MEDS ORDERED: HYDROmorphone INJ 0.5 MG/0.5 ML SYR IV PRN (17:23)
[2021-01-31] MEDS ORDERED: bisacodyL 10 MG SUPP PR PRN (17:23)
[2021-01-31] MEDS ORDERED: FAMOTIDINE 20 MG TAB PO PRN (17:23)
[2021-01-31] MEDS ORDERED: ALUMINUM/MAGNESIUM SUSP 30 ML UDC PO PRN (17:23)
[2021-01-31] MEDS ORDERED: MELATONIN 3 MG TAB PO PRN (17:40)
--- NOTE | 2021-01-31 17:45 | Operative Report ---
Post Operative Report Pre & Post Diagnosis Operation Date: 01/31/21 12:30 Pre-Op Diagnosis: Right Knee Advanced Degenerative Joint Disease Post-Op Diagnosis: Right Knee Advanced Degenerative Joint Disease I identified the patient and participated in the time-out.: Yes Procedure Operation Date: 01/31/21 12:30 Actual Procedures p Right Total Knee Arthroplasty(Right) - Isiah Rodriguez MD Surgeon Isiah Rodriguez MD [facility] Specialist HERNANDO Pennington Estimated Blood Loss 50 Findings Consistent with Post-Op Diagnosis Operative findings were advanced right knee DJD with extensive grade 4 gwox-ch-ghio disease in all 3 compartments with erosive changes and osteophytes in all 3 compartments. She had diffuse osteopenia Fluids 400 cc Specimens Right knee sent for pathology Drains None Anesthesia Type Spinal MAC Complications none Disposition Accompanied Patient To Recovery: No Indications Patient is an 80-year-old fairly active female is a long history of knee problems. She has been through extensive conservative treat in the past. She had her left knee replaced in the past and done well from this. More debilitated by right knee pain. She elected proceed with surgical treatment. Description of Procedure Operative implants consist of: 1. Biomet Vanguard size 65 right posterior stabilized femoral component. 2. Biomet size 71 tibial tray. 3. 12 mm posterior stabilized polyethylene insert. 4. 31 x 8 all polypatella. The patient was taken the operating, identified, placed on the operating table supine position but all contractors were properly padded. IV antibiotics 5 by anesthesia team. A spinal anesthetic had been implemented holding area. A Garzon catheter was placed in sterile fashion right thigh turn was then placed in the right lower extremities and prepped draped in usual sterile fashion. The right leg was elevated exsanguinated with use of an Esmarch interspace at 3 mmHg. An anterior approach to the right knee was then performed through longitudinal incision centered over the patella. Sharp dissection got through subcutaneous tissue down the level of the extensor mechanism. A medial parapatellar arthrotomy incision was made. Some subperiosteal dissection was carried out medially. The fat pad was dissected beneath patella tendon. The lateral patellofemoral ligament was released. The patella subluxated laterally and the knee was flexed. The osteophytes were taken off distal femur. ACL PCL then released and distal femur the tibia subluxated anteriorly. The external treatment line jig was then placed in the interface the tibia and adjusted 12 mm medially. Proximal tibial cut was made remove about a millimeter or 2 of bone from most deficient aspect medial tibial plateau. Some osteophytes were taken off medial and posterior medially. The tibia sized to a size 71. I did really try to maximize her coverage due to her osteopenia. Attention drawn the femur. The distal femur exam with a sharp drop with intramedullary canal was suction. A right 5 degree valgus cutting guide was placed for the distal femoral cutting block was pinned in place. The distal femoral cut was made to take an additional 3 mm of bone off distal femur. The femur was then sized to a size 65. The AP cutting block was pinned parallel to the epicondylar axis which was 4 degrees of external rotation. Anterior cut, anterior chamfer, posterior cut, posterior chamfer cuts were made. The box cutting guide was placed in just slight lateral box cut was made. The knee was flexed. The remnants of the medial and lateral menisci were excised. The osteophytes taken off the posterior aspect of the femur. A trial femoral component was placed. The tibial tray was pinned in maximum external rotation and the drill and stem punch were used to create defect in proximal tibia for the tibial tray. The knee was then trialed and the 12 mm insert fit most appropriately. Attention drawn the patella. The patella was cleaned of all soft tissues. Patella thickness measured 20 mm in thickness was cut down to 13. It was sized to a size 31 patella. The lug holes were drilled for 31 patella. The lateral osteophyte is moved. Patella button was placed. Knee was taken through range of motion patella tracked nicely with no thumbs test. Attention drawn to place the permanent components. All trial components removed. Bone plug was placed in the distal femur limit blood loss put a double batch [place] G cement was mixed. I did admission initial gram of vancomycin due to a history of having multiple bumps and scabs on her lower extremities. A Biomet Vanguard size 65 posterior stabilized femoral component, size 71 tibial tray, 12 mm posterior stabilized polyethylene insert, and a 31 x 8 all polypatella and then cemented in place. Knee was brought out in full extension until cement hardened. Final cement check was then performed. Pericapsular tissues were injected with total of 100 cc of combination of 20 cc of Exparel, 30 cc normal saline, 50 cc of quarter percent Marcaine with epinephrine. Patient did receive 1 g tranexamic acid per the turn was then let down for final turn time of 56 minutes. Hemostasis assured use electrocautery. Extensor mechanism closed with combination 1 PDS suture #1 Vicryl suture in [id number] fashion with extensor mechanism checked found to be intact the subcutaneous tissue then closed with 2 Dexon suture in a buried interrupted fashion skin was closed skin maulik. Legs then cleaned dried a sterile dressing with Xeroform, 4 x 4's, sterile cast padding, Anthony bandage applied. Patient then transferred to the recovery room in stable condition. Patient tolerated procedure well and there were no complications. Carson Pennington, my physician biology laboratory assistant, was present for the entire procedure. His assistance was essential and required for appropriate patient positioning, prepp ing and draping, surgical exposure, performing the technical details of the operation, placement the implants, closure of the wound, and placement of the sterile bandage. I attest to the content of the Intraoperative Record and any orders documented therein. Any exceptions are noted below.
[2021-01-31] MEDS: SODIUM CHLORIDE 0.9% 1000ML 1,000 ML IV SCH (18:08)
[2021-01-31] MEDS: KETOROLAC TROMETHAMINE 15 MG/ML VIAL IV SCH (18:08)
[2021-01-31] MEDS: traMADol HCL 50 MG TABLET PO PRN (18:09)
[2021-01-31] MEDS: LOSARTAN POTASSIUM 50 MG TAB PO SCH (18:33)
[2021-01-31] MEDS: ASCORBIC ACID 500 MG TAB PO SCH (18:34)
[2021-01-31] MEDS ORDERED: TRANEXAMIC ACID / 0.7% NACL 1,000 MG/100 ML BAG IV SCH (21:45)
[2021-01-31] MEDS: ASPIRIN 81 MG ECTAB PO SCH (22:13)
[2021-01-31] MEDS: SIMVASTATIN 20 MG TAB PO SCH (22:13)
[2021-01-31] MEDS: DOCUSATE SODIUM 100 MG CAP PO SCH (22:13)
[2021-01-31] MEDS: SENNA 8.6 MG TAB PO SCH (22:13)
[2021-01-31] MEDS: ACETAMINOPHEN 500 MG TAB PO SCH (22:14)
[2021-01-31] MEDS: ceFAZolin 1000MG 1,000 MG/7.5 ML SYR IV SCH (22:14)
[2021-02-01] MEDS: KETOROLAC TROMETHAMINE 15 MG/ML VIAL IV SCH ×4 (00:43→18:04)
[2021-02-01] MEDS: SODIUM CHLORIDE 0.9% 1000ML 1,000 ML IV SCH (04:01)
[2021-02-01] MEDS: ACETAMINOPHEN 500 MG TAB PO SCH ×3 (05:44→21:50)
[2021-02-01] MEDS: LEVOTHYROXINE SODIUM 50 MCG TABLET PO SCH (05:44)
[2021-02-01] MEDS: ceFAZolin 1000MG 1,000 MG/7.5 ML SYR IV SCH (05:44)
[2021-02-01 06:58] LABS: Hematocrit (blood only) 27.3 % (37-47); Hemoglobin 8.8 g/dL (12.0-16.0); Mean Corpuscular Hemoglobin 27.8 pg (25-34); Mean Corpuscular Hgb Conc 32.2 g/dL (32-36); Mean Corpuscular Volume 86.4 fL (80-100); Mean Platelet Volume 9.8 fL (7.4-10.4); Platelet Count 219 K/uL (130-400); RDW Coefficient of Variation 13.7 % (11.5-14.5); RDW Standard Deviation 43.7 fL (36.4-46.3); Red Blood Count 3.16 M/uL (4.2-5.4); White Blood Count 7.16 K/uL (4.8-10.8)
[2021-02-01 07:25] LABS: BUN Creatinine Ratio 27.4 (10-20); Calcium 8.4 mg/dl (8.5-10.1); Creatinine Clr Calc Pharmacy 41.7 ml/min; Est GFR (African American) 62.3 ml/min; Est GFR (Non-African American) 53.7 ml/min; Potassium 3.4 mmol/L (3.5-5.1)
[2021-02-01] MEDS ORDERED: dexAMETHasone 10 MG in SYRINGE 0 ML IV SCH (08:00)
[2021-02-01] MEDS: traMADol HCL 50 MG TABLET PO PRN ×2 (08:16→16:24)
[2021-02-01] MEDS: ASPIRIN 81 MG ECTAB PO SCH ×2 (08:17→21:49)
[2021-02-01] MEDS: DOCUSATE SODIUM 100 MG CAP PO SCH ×2 (08:17→21:48)
[2021-02-01] MEDS: ASCORBIC ACID 500 MG TAB PO SCH ×2 (08:18→16:25)
[2021-02-01] MEDS: FLUoxetine HCL 20 MG CAP PO SCH (08:18)
[2021-02-01] MEDS: ADVANCED PROBIOTIC 1250 MG CAPSULE PO SCH (08:18)
[2021-02-01] MEDS: FLUTICASONE PROPIONATE NA SPR 16 GM BTL NAE SCH (08:19)
[2021-02-01] MEDS ORDERED: POTASSIUM CHLORIDE CRTAB 20 MEQ TABCR PO ONE (08:35)
[2021-02-01] MEDS ORDERED: MULTIVITAMIN TAB PO SCH (09:00)
[2021-02-01] MEDS: LOSARTAN POTASSIUM 50 MG TAB PO SCH (10:13)
[2021-02-01] MEDS: OMEGA-3 (PURIFIED FISH OIL) 1 GM CAP PO SCH (10:56)
[2021-02-01] MEDS: CEROVITE ADV FORMULA TAB PO SCH (10:56)
[2021-02-01] MEDS: CALCIUM 600MG + VIT D 400 IU TAB PO SCH (10:56)
[2021-02-01] MEDS: CYANOCOBALAMIN 500 MCG TABLET (VITAMIN B-12) PO SCH (10:56)
--- NOTE | 2021-02-01 13:44 | Progress Notes ---
DATE OF SERVICE: 02/01/2021. SUBJECTIVE: An 80-year-old white female postoperative day 1 from right knee replacement. She is doi ng pretty well. Having a moderate amount of pain, but doing okay with pain medicines. No chest pain or shortness of breath. Not feeling dizzy or lightheaded. OBJECTIVE: VITAL SIGNS: Temperature is 37.1. Vital signs are stable. PHYSICAL EXAMINATION: GENERAL: Shows a pleasant elderly female. She is lying in bed, looks pretty comfortable. EXTREMITIES: Examination of the right leg reveals the leg to be well aligned. Dressing is clean, dr y and intact. She can do a straight leg raise. She can dorsiflex and plantarflex her foot appropria tely. She is neurologically intact. LABORATORY DATA: Hemoglobin 8.8. Hematocrit 27.3. Electrolytes are stable. Potassium is just slig htly low at 3.4. ASSESSMENT: An 80-year-old white female postoperative day 1 from a right knee replacement, doing pre tty well. Pain is controlled. She is neurologically intact. Potassium is a little bit low and we w ill supplement that. PLAN: 1. DVT prophylaxis including thigh-high TEDs, SCDs, and aspirin twice a day. 2. PT, OT, weightbear as tolerated. Right total knee protocol. 3. Pain control, doing well with current pain regimen. 4. Low potassium. We will supplement her potassium today. 5. Disposition: Plan to discharge to [facility] for postoperative care. She appears medically stab le. We will get her there once approved and accepted. Job ID: [id number]
[2021-02-01] MEDS: SIMVASTATIN 20 MG TAB PO SCH (21:49)
[2021-02-01] MEDS: SENNA 8.6 MG TAB PO SCH (21:50)
[2021-02-02] MEDS: KETOROLAC TROMETHAMINE 15 MG/ML VIAL IV SCH ×3 (00:48→11:07)
[2021-02-02] MEDS: ACETAMINOPHEN 500 MG TAB PO SCH ×2 (05:04→12:51)
[2021-02-02] MEDS: LEVOTHYROXINE SODIUM 50 MCG TABLET PO SCH (05:04)
[2021-02-02 07:09] LABS: BUN Creatinine Ratio 28.1 (10-20); Creatinine Clr Calc Pharmacy 47.5 ml/min; Est GFR (African American) 72.9 ml/min; Est GFR (Non-African American) 62.9 ml/min; Potassium 3.8 mmol/L (3.5-5.1)
[2021-02-02] MEDS: ASPIRIN 81 MG ECTAB PO SCH (07:30)
[2021-02-02] MEDS: LOSARTAN POTASSIUM 50 MG TAB PO SCH (07:31)
[2021-02-02] MEDS: ASCORBIC ACID 500 MG TAB PO SCH (07:31)
[2021-02-02] MEDS: ADVANCED PROBIOTIC 1250 MG CAPSULE PO SCH (07:31)
[2021-02-02] MEDS: FLUoxetine HCL 20 MG CAP PO SCH (07:31)
[2021-02-02] MEDS: FLUTICASONE PROPIONATE NA SPR 16 GM BTL NAE SCH (07:32)
[2021-02-02] MEDS: DOCUSATE SODIUM 100 MG CAP PO SCH (07:32)
[2021-02-02] MEDS: traMADol HCL 50 MG TABLET PO PRN (07:46)
[2021-02-02 07:52] VITALS: BP 153/76; PULSE 88; TEMP 97.7; O2SAT 98
[2021-02-02] MEDS: CEROVITE ADV FORMULA TAB PO SCH (11:07)
[2021-02-02] MEDS: OMEGA-3 (PURIFIED FISH OIL) 1 GM CAP PO SCH (11:07)
[2021-02-02] MEDS: CALCIUM 600MG + VIT D 400 IU TAB PO SCH (11:07)
[2021-02-02] MEDS: CYANOCOBALAMIN 500 MCG TABLET (VITAMIN B-12) PO SCH (11:07)
--- NOTE | 2021-02-02 15:06 | Progress Notes ---
DATE OF SERVICE: 02/02/2021. SUBJECTIVE: An 80-year-old female now postop day 2 from right knee replacement. She is doing pretty well. Therapy has gone pretty well. Having some moderate amounts of pain, but doing okay with pain medicine. No chest pain or shortness of breath. Not feeling dizzy or lightheaded. OBJECTIVE: VITAL SIGNS: Temperature is 36.5. Vital signs stable. PHYSICAL EXAMINATION: GENERAL: Shows a pleasant elderly female. She is sitting up in bed, anxious to get to rehab. EXTREMITIES: Examination of the right leg reveals the leg to be well aligned. She can dorsiflex and plantarflex her foot appropriately. She is neurologically intact. IMPRESSION: An 80-year-old white female postoperative day 2 from right knee replacement, doing prett y well. Pain is controlled. She is neurologically intact. PLAN: 1. DVT prophylaxis including thigh-high TEDs, SCDs, and aspirin twice a day. 2. PT/OT. She can weight bear as tolerated in the right lower extremity. 3. Pain control, doing pretty well with current pain regimen. 4. Disposition: She is planning to be discharged to [facility]. We are just really waiting for kirti 99testsval. Job ID: [id number]
--- NOTE | 2021-02-04 20:59 | Discharge Summary ---
Date of Service February 04, 2021 Discharge Data Procedures Performed Operation Date: 01/31/21 12:30 Actual Procedures p Right Total Knee Arthroplasty(Right) - Isiah Rodriguez MD Hospital Course (1) Status post total right knee replacement: This is a 80 year old patient admitted on 01/31/21 and underwent total knee arthroplasty. She tolerated the procedure well and there were no complications. Transferred to the PACU post op and later to the orthopedic floor for further care. She was given ancef for antibiotic prophylaxis. She was also given JOSE stockings, SCDs, and aspirin for DVT prophylaxis. Hemoglobin, hematocrit, and vital signs were monitored during her hospital stay and remained stable. Did not require any blood transfusions. There were no complications during her hospital stay. By post op day #2 the patient was tolerating a regular diet, pain was reasonably controlled with oral pain medicine, and she was participating in physical therapy. On post op day #2 the patient was discharged to a rehab facility. She was given printed discharge instructions including prescriptions for extra strength tylenol, aspirin, and tramadol. Continue physical therapy, weight bearing as tolerated. Continue JOSE stockings. Follow up approximately 2 weeks post op or sooner if there are problems or concerns. Coding Level of Care Code None Diagnoses Status post total right knee replacement Z96.651
== END 2021-02-02 15:15 ==
LOC: ASU 10:23 → 3E 10:23

== ENCOUNTER 2021-02-05 14:09 | Inpatient (IN) ==
[2021-02-05] MEDS ORDERED: MoRPHine SULFATE 2 MG/ML CARP IV STA (14:50)
[2021-02-05] MEDS ORDERED: ONDANSETRON INJ 2 MG/ML 2 ML VIAL IV STA (14:50)
--- NOTE | 2021-02-05 14:55 | Emergency Department Note ---
History of Present Illness General Chief complaint: Vomiting Stated complaint: abdominal pain, n/v Time Seen by Provider: 02/05/21 14:42 Source: patient Mode of arrival: EMS Limitations: no limitations History of Present Illness Provider complaint: Nausea and vomiting Onset (ago): day(s) 2 Maximum Pain Intensity: 8 Exacerbated By: + eating Associated symptoms: + fever/chills, + loss of appetite, + malaise and + nausea/vomiting This is 80-year-old female presents the emergency department from the [facility] after nausea and vomiting this morning. Patient states she has been nauseated ever since arriving at the [facility] on Saturday after a right TKA by Dr. Rodriguez here in the hospital. Per paperwork accompanying the patient she does have as needed's listed for pain, constipation, and GERD. Patient states she has been taking medications as prescribed, felt her pain was fairly well controlled. She has been nauseated ever since arrival though was trying to stay well-hydrated with fluids, although admits she has not had normal appetite. Patient states she did have a normal bowel movement this morning. She states she does still feel pressure and urges as she may need to have additional bowel movements. Patient states she has been urinating without difficulty. She denies fevers and chills. Pt seen during a time of high acuity and national emergency pandemic while wearing PPE. Home Medications Medication Instructions Recorded Confirmed Type lactase [Lactaid Fast Act] See Rx Instructions PO .COMPLEX PRN 03/23/19 02/05/21 History omega-3 fatty acids 500 mg capsule 1,000 mg PO QDL cap 05/05/19 02/05/21 History calcium carbonate 500 mg (1,250 1 tab PO QDL tab 12/18/19 02/05/21 History mg)-vitamin D3 200 unit tablet (Os-Glenn 500 + D3) cyanocobalamin (vitamin B-12) 500 1,000 mcg PO QDL tab 12/18/19 02/05/21 H istory mcg tablet melatonin 5 mg capsule 5 mg PO HS PRN cap 12/18/19 02/05/21 History cetirizine 10 mg tablet (Zyrtec) 5 mg PO DAILY PRN 04/08/20 02/05/21 History famotidine 20 mg tablet 20 mg PO DAILY PRN 12/20/20 02/05/21 History xhxjmyrmjzv-agc-abijgbfib-hrb 1 tab PO QDL tab 12/20/20 02/05/21 History 149-hyalur 500 mg-500 mg-66.7 mg tablet (Cvnghlchnsm-Khyneckztuv-EZV (with antiox)) multivit with 1 tab PO QDL 12/20/20 02/05/21 History zvuxdjxy-ynve-BC-lutein 8 mg iron-400 mcg-300 mcg tablet (Centrum Silver Women) vitamins A,C,D-scij-tovcmx 14,320 1 cap PO BID 12/20/20 02/05/21 History unit-226 mg-200 unit capsule (PreserVision AREDS) exemestane 25 mg tablet (Aromasin) 25 mg PO QDL 01/11/21 02/05/21 History fluoxetine 20 mg capsule 20 mg PO QAM 01/11/21 02/05/21 History fluticasone propionate 50 2 sprays INTNAS QAM 01/11/21 02/05/21 History mcg/actuation nasal spray,suspension levothyroxine 50 mcg tablet 50 mcg PO DAILYBB 01/11/21 02/05/21 History losartan 50 mg tablet 50 mg PO QAM 01/11/21 02/05/21 History acetaminophen 500 mg tablet 1,000 mg PO Q8 30 Days #180 tab 01/31/21 02/05/21 Rx (Tylenol Extra Strength) aspirin 81 mg tablet,delayed 81 mg PO BID 45 Days #90 tab 01/31/21 02/05/21 Rx release tramadol 50 mg tablet 50 mg PO Q4H PRN #40 tab 01/31/21 02/05/21 Rx acetaminophen 325 mg tablet 650 mg PO Q4H PRN MDD 3 GRAMS/24 02/05/21 02/05/21 History (Tylenol) HOURS lactobacillus combination no.4 3 3,000 mmu cells PO DAILY 02/05/21 02/05/21 History billion cell capsule (Probiotic) oxycodone 5 mg tablet 5 mg PO Q4H PRN 02/05/21 02/05/21 History simvastatin 20 mg tablet 20 mg PO HS 02/05/21 02/05/21 History Allergies Allergy/AdvReac Type Severity Reaction Status Date / Time NSAIDS (Non-Steroidal Allergy Severe RENAL Verified 02/05/21 15:05 Anti-Inflamma FAILURE adhesive Allergy Mild RASH Verified 02/05/21 15:05 latex Allergy Mild RASH Verified 02/05/21 15:05 procaine Allergy Mild prolonged Verified 02/05/21 15:05 effect amoxicillin AdvReac Intermediate Diarrhea Verified 02/05/21 15:05 Past Med/Surg History Medical History (Updated 02/07/21 @ 17:28 by Gina Spivey DO) Cardiac murmur New onset Last stress ECHO 2019- showed no significant heart valve abnormalities GERD (gastroesophageal reflux disease) Well controlled and stable GI bleeding History of breast cancer Dx 2017; h/o lumpectomy + radiation No current issues Hypercholesterolemia Hypertension Hypothyroidism Laceration of right lower leg S/p laceration to right distal LE- 15 stitches (since removed) Dr. Michael hale LVH (left ventricular hypertrophy) follows with Dr. Koch Osteoarthritis Overactive bladder Troponin I above reference range Surgical History History of breast biopsy History of cholecystectomy History of colonoscopy History of left knee replacement History of lumpectomy of left breast History of right knee surgery History of tonsillectomy and adenoidectomy Family History Unknown Aortic aneurysm Social History Smoking Status: Never smoker Second Hand Exposure: No; Do You Dip or Chew Tobacco: No; Hx Alcohol Use: Yes Alcohol type: wine Hx Substance Use: No Preferred Language: French Communication Ability: Effective Blue Crabber Required: No Beliefs That Will Affect Care: None marital status: / Current Living Situation: Alone current occupational status: retired How many Children do You have: 2 Other Information That Helps Us Care for You: No Feels Safe at Home: Yes Safety Concerns: Feels Safe At This Time Assistive Devices: None Review of Systems A total of 10 systems reviewed and were otherwise negative All systems reviewed & are unremarkable except as noted in HPI & below Physical Exam Vital Signs Vital Signs - 24 hr 02/05/21 14:12 02/05/21 16:09 02/05/21 16:31 Temperature 36.5 C Temperature Source Oral Pulse Rate 76 82 98 H Pulse Rate from SpO2 Sensor 81 100 H Pulse Rhythm Regular Pulse Strength Normal Respiratory Rate 18 18 17 Respiratory Effort / Characteristics Non-Labored Spontaneous Respiratory Depth Normal Respiratory Pattern Regular Blood Pressure 149/87 H 116/54 L 152/63 H Blood Pressure Mean 107 74 92 Pulse Oximetry 96 91 98 Oxygen Delivery Method Room Air Nasal Cannula Oxygen Flow Rate 2 Sepsis Recent Fever Within 48 Hours No Sepsis New/Unexplained Change in Mental Status No Sepsis Action Taken by Nursing No Action Required 02/05/21 17:00 Temperature Temperature Source Pulse Rate 88 Pulse Rate from SpO2 Sensor 89 Pulse Rhythm Pulse Strength Respiratory Rate 18 Respiratory Effort / Characteristics Respiratory Depth Respiratory Pattern Blood Pressure 150/64 H Blood Pressure Mean 92 Pulse Oximetry 100 Oxygen Delivery Method Nasal Cannula Oxygen Flow Rate 2 Sepsis Recent Fever Within 48 Hours Sepsis New/Unexplained Change in Mental Status Sepsis Action Taken by Nursing GENERAL: alert, ill appearing, well nourished, no distress, non-toxic EYE EXAM: normal conjunctiva, PERRL and EOM's grossly intact OROPHARYNX: no exudate, no erythema, lips, buccal mucosa, and tongue normal and mucous membranes are moist NECK: supple, no nuchal rigidity, no adenopathy, non-tender LUNGS: Clear to auscultation. Normal chest wall mechanics, no w/r/r HEART: no murmurs, S1 normal and S2 normal ABDOMEN: abdomen soft, non-tender, normo-active bowel sounds, no masses, no rebound or guarding. BACK: Back is symmetrical on inspection and there is no deformity, no midline tenderness, no CVA tenderness. SKIN: no rashes and no bruising UPPER EXTREMITIES: upper extremities are grossly normal. FROM, nml pulses b/l. LOWER EXTREMITIES: Normal distal pulses bilaterally, JOSE stockings in place bilaterally with additional padding and dressing noted to the area of the right knee NEURO EXAM: Normal sensorium, cranial nerves II-XII grossly intact, normal speech, no gross weakness of arms, no gross weakness of legs. No pronator drift. Finger to nose intact. Gross sensation intact. Course Course 171: Updated pt at bedside regarding results and concerns. VS stable. Nausea improved with medication. There had been some delay obtaining labs so an IV bolus was given initially once this was established and then labs obtained and rate slowed to maintenance. H/H has dropped compared to post op level recently checked. Pt has had routine colonoscopy and denies hx of GI bleed. Pt does feel she may need to have a BM soon. Will test this but if not will perform rectal exam. Discussed blood consent at bedside and pt signed. Will order CT a/p in addition as a precaution. Administered Medications Acetaminophen (Acetaminophen 500 Mg Tab) 500 mg PO Q8 JORGE Stop: 03/07/21 21:59 Last Admin: 02/07/21 14:02 Dose: 500 mg Documented by: [id number] Admin: 02/07/21 06:28 Dose: 500 mg Documented by: [id number] Admin: 02/06/21 21:18 Dose: 500 mg Documented by: [id number] Admin: 02/06/21 13:25 Dose: Not Given Documented by: [id number] Admin: 02/06/21 04:50 Dose: Not Given Documented by: [id number] Admin: 02/05/21 22:17 Dose: Not Given Documented by: [id number] Cyanocobalamin (Cyanocobalamin 500 Mcg Tablet (Vitamin B-12)) 1,000 mcg PO QDL JORGE Stop: 03/08/21 11:29 Last Admin: 02/07/21 11:51 Dose: 1,000 mcg Documented by: [id number] Admin: 02/06/21 11:26 Dose: Not Given Documented by: [id number] Fluoxetine HCl (Fluoxetine Hcl 20 Mg Cap) 20 mg PO QAM JORGE Stop: 03/08/21 08:59 Last Admin: 02/07/21 08:04 Dose: 20 mg Documented by: [id number] Admin: 02/06/21 10:02 Dose: Not Given Documented by: [id number] Pantoprazole Sodium 40 mg/ (Dextrose) 100 mls @ 20 mls/hr IV Q5H JORGE Stop: 03/08/21 15:59 Last Admin: 02/07/21 11:51 Dose: 8 mg/hr, 20 mls/hr Documented by: [id number] Infusion: 02/07/21 11:44 Dose: 0 mg/hr, 0 mls/hr Documented by: [id number] Admin: 02/07/21 06:29 Dose: 8 mg/hr, 20 mls/hr Documented by: [id number] Infusion: 02/07/21 06:29 Dose: 8 mg/hr, 20 mls/hr Documented by: [id number] Admin: 02/07/21 01:59 Dose: 8 mg/hr, 20 mls/hr Documented by: [id number] Infusion: 02/07/21 01:59 Dose: 8 mg/hr, 20 mls/hr Documented by: [id number] Admin: 02/06/21 21:11 Dose: 8 mg/hr, 20 mls/hr Documented by: [id number] Infusion: 02/06/21 21:11 Dose: 8 mg/hr, 20 mls/hr Documented by: [id number] Admin: 02/06/21 17:01 Dose: 8 mg/hr, 20 mls/hr Documented by: [id number] Levothyroxine Sodium (Levothyroxine Sodium 50 Mcg Tablet) 50 mcg PO DAILYBB [facility] Stop: 03/08/21 06:29 Last Admin: 02/07/21 06:28 Dose: 50 mcg Documented by: [id number] Admin: 02/06/21 04:50 Dose: Not Given Documented by: [id number] Miscellaneous (Exemestane [Aromasin] Order Awaiting Action) 1 ea N/A QS [facility] Stop: 03/08/21 00:00 Last Admin: 02/07/21 16:01 Dose: 1 ea Documented by: [id number] Admin: 02/07/21 08:05 Dose: Not Given Documented by: [id number] Admin: 02/06/21 23:42 Dose: Not Given Documented by: [id number] Admin: 02/06/21 13:27 Dose: Not Given Documented by: [id number] Admin: 02/06/21 07:12 Dose: Not Given Documented by: [id number] Admin: 02/05/21 23:40 Dose: Not Given Documented by: [id number] Morphine Sulfate (Morphine Sulfate 2 Mg/Ml Carp) 2 mg IV Q30M PRN PRN Reason: Chest Pain Stop: 02/19/21 21:24 Last Admin: 02/06/21 06:26 Dose: 2 mg Documented by: [id number] Admin: 02/06/21 01:34 Dose: 2 mg Documented by: [id number] Admin: 02/05/21 22:32 Dose: 2 mg Documented by: [id number] Multivitamins/Minerals (Cerovite Adv Formula Tab) 1 tab PO QDL [facility] Stop: 03/08/21 11:29 Last Admin: 02/07/21 11:51 Dose: 1 tab Documented by: [id number] Admin: 02/06/21 11:26 Dose: Not Given Documented by: [id number] Ondansetron HCl (Ondansetron Inj 2 Mg/Ml 2 Ml Vial) 4 mg IV Q8 PRN PRN Reason: Nausea Stop: 03/07/21 21:24 Last Admin: 02/06/21 01:34 Dose: 4 mg Documented by: [id number] Oxycodone HCl (Oxycodone Hcl Ir 5 Mg Tab (Immediate Release)) 5 mg PO Q4H PRN PRN Reason: Pain (Scale Score 7-10) Stop: 02/19/21 21:24 Last Admin: 02/07/21 08:07 Dose: 5 mg Documented by: [id number] Admin: 02/06/21 22:00 Dose: 5 mg Documented by: [id number] Simvastatin (Simvastatin 20 Mg Tab) 20 mg PO HS JORGE Stop: 03/07/21 21:24 Last Admin: 02/06/21 21:18 Dose: 20 mg Documented by: [id number] Admin: 02/05/21 22:17 Dose: Not Given Documented by: [id number] Discontinued Medications Epinephrine HCl (Epinephrine 1.5" Ndl 0.1 Mg/Ml Syr) Confirm Administered Dose 1 mg IV .STK-MED ONE Stop: 02/06/21 15:51 Last Admin: 02/06/21 17:00 Dose: Not Given Documented by: [id number] Pantoprazole Sodium 40 mg/ (Syringe) 10 mls @ 5 mls/min IV BID JORGE Stop: 03/07/21 21:29 Last Admin: 02/06/21 07:54 Dose: 5 mls/min Documented by: [id number] Admin: 02/05/21 22:27 Dose: 5 mls/min Documented by: [id number] Ioversol (Optiray 320 100ml) 94 ml IV ONCE ONE Stop: 02/05/21 17:59 Last Admin: 02/05/21 17:59 Dose: 1 ml Documented by: [id number] Ketorolac Tromethamine (Ketorolac Tromethamine 15 Mg/Ml Vial) 10 mg IV NOW ONE Stop: 02/06/21 08:08 Last Admin: 02/06/21 08:25 Dose: 10 mg Documented by: [id number] Lidocaine HCl (Lidocaine 2% 2 Ml Vial/Amp(20mg/Ml)) Confirm Administered Dose 4 ml INFIL .STK-MED ONE Stop: 02/06/21 15:51 Last Admin: 02/06/21 17:00 Dose: Not Given Documented by: [id number] Morphine Sulfate (Morphine Sulfate 2 Mg/Ml Carp) 2 mg IV NOW STA Stop: 02/05/21 14:51 Last Admin: 02/05/21 16:09 Dose: 2 mg Documented by: [id number] Ondansetron HCl (Ondansetron Inj 2 Mg/Ml 2 Ml Vial) 4 mg IV NOW STA Stop: 02/05/21 14:51 Last Admin: 02/05/21 16:09 Dose: 4 mg Documented by: [id number] Ondansetron HCl (Ondansetron Inj 2 Mg/Ml 2 Ml Vial) 4 mg IV ONE ONE Stop: 02/06/21 16:09 Last Admin: 02/06/21 16:14 Dose: 4 mg Documented by: [id number] Propofol (Propofol Iv Emulsion 10 Mg/Ml 20 Ml Vial) Confirm Administered Dose 40 0 mg IV .STK-MED ONE Stop: 02/06/21 15:51 Last Admin: 02/06/21 17:00 Dose: Not Given Documented by: [id number] Critical Care Time Critical Care Time: Yes Total Critical Care Time: 42 Critical care of 42 min performed to assess and manage high likelihood of life- threatening anemia and GI bleed, involving labs and imaging performed with assessment to evaluate anemia and GI bleed diagnosis with frequent reassessment. This time includes bedside time, treatment discussions with patient/family/consultants, documentation time and excludes procedure time. Medical Decision Making Differential Diagnosis Differential: Gastroenteritis, Food Borne, Esophageal Perforation, , Electrolyte Abnormality, Dehydration, Intraabdominal Infection, UTI/Pyelonephritis, Bowel Obstruction, Biliary Pathology, amongst other p athology entertained. Medical Records Attestation: I reviewed the patient's medical records. Home Medications Current Medication List: was personally reviewed by me Laboratory Data Attestation: I reviewed the patient's lab results. Result diagrams: 02/07/21 15:49 02/07/21 06:06 Lab Results 02/05/21 02/05/21 02/05/21 Range/Units 16:49 16:49 17:45 WBC 9.15 (4.8-10.8) K/uL RBC 2.13 L (4.2-5.4) M/uL Hgb 5.9 L* (12.0-16.0) g/dL Hct 18.5 L* (37-47) % MCV 86.9 (80-100) fL MCH 27.7 (25-34) pg MCHC 31.9 L (32-36) g/dL RDW Std Deviation 45.3 (36.4-46.3) fL RDW Coeff of Omar 14.3 (11.5-14.5) % Plt Count 267 (130-400) K/uL MPV 8.9 (7.4-10.4) fL Immature Gran % (Auto) 1.9 % Neut % (Auto) 81.5 % Lymph % (Auto) 8.4 % [place] % (Auto) 6.9 % Eos % (Auto) 1.1 % Baso % (Auto) 0.2 % Neut # (Auto) 7.46 H (1.4-6.5) K/uL Lymph # (Auto) 0.77 L (1.2-3.4) K/uL [place] # (Auto) 0.63 H (0.11-0.59) K/uL Eos # (Auto) 0.10 (0-0.5) K/uL Baso # (Auto) 0.02 (0-0.2) K/uL Immature Gran # (Auto) 0.17 H (0.00-0.02) K/uL Polychromasia 1+ Sodium 138 (136-145) mmol/L Potassium 4.4 (3.5-5.1) mmol/L Chloride 106 (98-107) mmol/L Carbon Dioxide 26 (21-32) mmol/L Anion Gap 6.0 (3-11) BUN 31 H (7-18) mg/dl Creatinine 0.91 (0.6-1.2) mg/dl Est Cr Clr Drug Dosing Not Reportable Est GFR ( Amer) 68.1 ml/min Est GFR (Non-Af Amer) 58.8 ml/min BUN/Creatinine Ratio 33.9 H (10-20) Glucose 124 H (70-99) mg/dl Calcium 7.8 L (8.5-10.1) mg/dl Total Bilirubin 0.6 (0.2-1) mg/dl AST 15 (15-37) U/L ALT 18 (12-78) U/L Alkaline Phosphatase 58 (45-117) U/L Troponin I 0.186 H* (0-0.045) ng/ml Total Protein 5.1 L (6.4-8.2) gm/dl Albumin 2.4 L (3.4-5.0) gm/dl Globulin 2.7 (2.5-4.0) gm/dl Albumin/Globulin Ratio 0.9 (0.9-2) Lipase 170 (73-393) U/L Blood Type O Positive Antibody Screen NEGATIVE Crossmatch See Detail Imaging Data Radiologist's Impression: Chest/Abdomen X-ray 02/05/21 14:50 XR abdomen 2V w PA chest CLINICAL HISTORY: n/v COMPARISON STUDY: January 18, 2021 FINDINGS: The erect chest reveals no evidence of free air. There is no evidence of focal pulmonary consolidation. Erect and supine views of the abdomen reveal no abnormally dilated loops of large or small bowel. Paucity of gas is seen within abdomen. Questionable foreign objects are projecting to the right hemiabdomen. Cholecystectomy clips are seen within right upper quadrant. Degenerative changes of the lumbar spine are demonstrated. IMPRESSION: 1. No evidence of bowel loops dilatation or free air. 2. Questionable foreign objects are projecting to the anatomical region of the right hemiabdomen. ACT 112: Negative or not required by law. The above report was generated using voice recognition software. It may contain grammatical, syntax or spelling errors. Electronically signed by: Marlin Patel DO 02/05/2021 5:07 PM ECG Data Attestation: I personally reviewed and interpreted this ECG as follows: Indication: + nausea and + vomiting Rate (beats per minute): 95 Rhythm: + normal sinus ECG Intervals/blocks: + Normal QRS and + Normal QT ECG ST segments: + ST depression (I, II, V4-6) and + T-wave inversions (aVL) MDM Narrative This is an 80 yo female post op from recent right knee surgery with n/v. Pt reports normal BM this am. Reports poor appetite and nausea since arriving at rehab which she attributed to possible adr of the pain medication. Labs sent. Minimal blood on dressing over incision. JOSE rahman b/l. Pt afebrile and VS stable. Sx improved with zofran. IVF running. H/H lower than post op. Pt signed blood consent and 1 u pRBC ordered in the ER. Patient felt she may need to have another BM and upon waiting for this I discussed the case with the hospitalist. Pt then had a large bloody BM in the ER. CT a/p had been ordered already as a precaution. No hx of GI bleed. Patient taking ASA only post op for DVT prophylaxis, no other anticoagulation. Troponin elevated with mild EKG changes however pt denied CP/SOB. I suspect demand ischemia from anemia. Pt made aware of all results, verbalized understanding and was in agreement with the plan. An order was placed for continuous cardiac monitoring. The monitor shows a rate of _80_ with _normal sinus__ rhythm. Impression & Plan Acute GI bleeding, Abnormal ECG, Anemia, Nausea and vomiting, Elevated troponin Discharge Plan Visit Data Chief Complaint: Vomiting Stated Complaint: abdominal pain, n/v ED Provider: Gina Spivey Discharge Problem: Acute GI bleeding, Abnormal ECG, Anemia, Nausea and vomiting, Elevated troponin Patient Disposition: Admitted As Inpatient Discharge Instructions Interventions: ED Discharge Assessment Last Done: 02/05/21 20:48 Discharge Problem: Anemia Qualifiers: Anemia type: other cause Other causes of anemia: acute posthemorrhagic Qualified Code(s): D62 - Acute posthemorrhagic anemia Nausea and vomiting Qualifiers: Vomiting type: unspecified Vomiting Intractability: non-intractable Qualified Code(s): R11.2 - Nausea with vomiting, unspecified
--- NOTE | 2021-02-05 17:09 | XRay Report ---
XR abdomen 2V w PA chest CLINICAL HISTORY: n/v COMPARISON STUDY: January 18, 2021 FINDINGS: The erect chest reveals no evidence of free air. There is no evidence of focal pulmonary consolidatio n. Erect and supine views of the abdomen reveal no abnormally dilated loops of large or small bowel. [place] of gas is seen within abdomen. Questionable foreign objects are projecting to the right hemiabdomen. Cholecystectomy clips are seen within right upper quadrant. Degenerative changes of the lumbar spine are demonstrated. IMPRESSION: 1. No evidence of bowel loops dilatation or free air. 2. Questionable foreign objects are projecting to the anatomical region of the right hemiabdomen. ACT 112: Negative or not required by law. The above report was generated using voice recognition software. It may contain grammatical, syntax o r spelling errors. Electronically signed by: Marlin Patel DO 02/05/2021 5:07 PM
[2021-02-05 17:20] LABS: Hematocrit (blood only) 18.5 % (37-47); Hemoglobin 5.9 g/dL (12.0-16.0); Mean Corpuscular Hemoglobin 27.7 pg (25-34); Mean Corpuscular Hgb Conc 31.9 g/dL (32-36); Mean Corpuscular Volume 86.9 fL (80-100); Mean Platelet Volume 8.9 fL (7.4-10.4); Platelet Count 267 K/uL (130-400); RDW Coefficient of Variation 14.3 % (11.5-14.5); RDW Standard Deviation 45.3 fL (36.4-46.3); Red Blood Count 2.13 M/uL (4.2-5.4); White Blood Count 9.15 K/uL (4.8-10.8)
[2021-02-05 17:23] LABS: Alanine Aminotransferase 18 U/L (12-78); Albumin Level 2.4 gm/dl (3.4-5.0); Aspartate Aminotransferase 15 U/L (15-37); BUN Creatinine Ratio 33.9 (10-20); Blood Urea Nitrogen 31 mg/dl (7-18); Calcium 7.8 mg/dl (8.5-10.1); Carbon Dioxide 26 mmol/L (21-32); Chloride 106 mmol/L (98-107); Est GFR (African American) 68.1 ml/min; Est GFR (Non-African American) 58.8 ml/min; Glucose 124 mg/dl (70-99); Lipase 170 U/L (73-393); Potassium 4.4 mmol/L (3.5-5.1); Sodium 138 mmol/L (136-145)
[2021-02-05 17:30] LABS: Albumin Globulin Ratio 0.9 (0.9-2); Alkaline Phosphatase 58 U/L (45-117); Bilirubin,Total 0.6 mg/dl (0.2-1); Globulin 2.7 gm/dl (2.5-4.0); Total Protein 5.1 gm/dl (6.4-8.2); Troponin I 0.186 ng/ml (0-0.045)
[2021-02-05] MEDS ORDERED: SODIUM CHLORIDE 0.9% 250 ML IV PRN ×2 (17:39→18:51)
[2021-02-05 17:50] LABS: Basophils # (auto) 0.02 K/uL (0-0.2); Basophils % (auto) 0.2 %; Eosinophils % (auto) 1.1 %; Immature Granulocytes # (auto) 0.17 K/uL (0.00-0.02); Immature Granulocytes % (auto) 1.9 %; Lymphocytes # (auto) 0.77 K/uL (1.2-3.4); Lymphocytes % (auto) 8.4 %; Monocytes # (auto) 0.63 K/uL (0.11-0.59); Monocytes % (auto) 6.9 %; Neutrophils # (auto) 7.46 K/uL (1.4-6.5); Neutrophils % (auto) 81.5 %; Polychromasia 1+
[2021-02-05] MEDS ORDERED: OPTIRAY 320 100ml IV ONE (17:58)
--- NOTE | 2021-02-05 18:11 | History & Physical Report ---
Date of Service February 05, 2021 Assessment & Plan (1) Status post total right knee replacement: Plan: 80 y/o F Hx HTN, HLD, hypothyroidism, depression. Pt underwent a R TKE 01/31/21. She was DCd to rehab and reports nausea and vomiting since DC. She denies fevers. She has not had CP or SOB but does describe persistent weakness. Her wound has required frequent dressing changes due to occasional bleeding. Initial labs were notable for a hemoglobin of 5.9, protein malnutrition and a trop of 0.186. BUN is elevated however, electrolytes and renal function are otherwise WNL. XR of the abdomen did not show any acute abnormalities. An EKG demonstrated NSR with borderline ST changes inferior and laterally. A post-op Hb was 8.8 and > 11 pre-op. While in the ER, she had a melanotic BM. Vitals have remained stable. 1) Anemia - post-op, oozing wound, GI bleed - GI consulted, PPi, transfuse 3U PRBC, trend Hb Q4. Pt's wound should be evaluated by ortho prior to DC if there is bleeding. 2) Nausea and vomiting - Pt believes this is related to pain medications. Considering a confirmed GI bleed now, we will proceed to a CT abdomen. GI consulted as above, antiemetics as needed. 3) Elevated trop - EKG abnormalities - unlikely a primary cardiac issue, although a degree os ischemia spurned by low hemoglobin may have unmasked underlying CAD. She had a normal cardiac eval preop. We ave consulted cardiology, ordered an echo and assigned the pt to telemetry with serial trops. ASA is DCd and anticoagulation is obviously contraindicated. She can continue her statin. 4) HTN, HLD - Losartan held, con statin 5) Hypothyroidism - cont Synthroid Full code - SCDs Total time for this admit including review of labs, meds, imaging, records - discussion with pt and ER attending - 52 min (2) Anemia: (3) Troponin I above reference range: (4) Nausea and vomiting: History of Present Illness Chief Complaint: Nausea, vomiting, anemia Primary Care Provider: Aiden Gilbert MD 80 y/o F Hx HTN, HLD, hypothyroidism, depression. Pt underwent a R TKE 01/31/21. She was DCd to rehab and reports nausea and vomiting since DC. She denies fevers. She has not had CP or SOB but does describe persistent weakness. Her wound has required frequent dressing changes due to occasional bleeding. Initial labs were notable for a hemoglobin of 5.9, protein malnutrition and a trop of 0.186. BUN is elevated however, electrolytes and renal function are otherwise WNL. XR of the abdomen did not show any acute abnormalities. An EKG demonstrated NSR with borderline ST changes inferior and laterally. A post-op Hb was 8.8 and > 11 pre-op. While in the ER, she had a melanotic BM. Vitals have remained stable. PMH: 1) HTN 2) HLD 3) Hypothyroidism 4) NSAID nephropathy - resolved 5) DJD 6) Depression 7) Breast CA Surgical: 1) L TKA 2018 2) R TKA 2020 3) Tubal ligation 4) Cholecystectomy Social: Does not drink or smoke Family: Noncontributory due to pt's age Allergies Allergy/AdvReac Type Severity Reaction Status Date / Time NSAIDS (Non-Steroidal Allergy Severe RENAL Verified 02/05/21 15:05 Anti-Inflamma FAILURE adhesive Allergy Mild RASH Verified 02/05/21 15:05 latex Allergy Mild RASH Verified 02/05/21 15:05 procaine Allergy Mild prolonged Verified 02/05/21 15:05 effect amoxicillin AdvReac Intermediate Diarrhea Verified 02/05/21 15:05 Home Medications Medication Instructions Recorded Confirmed Type lactase [Lactaid Fast Act] See Rx Instructions PO .COMPLEX PRN 03/23/19 02/05/21 History omega-3 fatty acids 500 mg capsule 1,000 mg PO QDL cap 05/05/19 02/05/21 History calcium carbonate 500 mg (1,250 1 tab PO QDL tab 12/18/19 02/05/21 History mg)-vitamin D3 200 unit tablet (Os-Glenn 500 + D3) cyanocobalamin (vitamin B-12) 500 1,000 mcg PO QDL tab 12/18/19 02/05/21 History mcg tablet melatonin 5 mg capsule 5 mg PO HS PRN cap 12/18/19 02/05/21 History cetirizine 10 mg tablet (Zyrtec) 5 mg PO DAILY PRN 04/08/20 02/05/21 History famotidine 20 mg tablet 20 mg PO DAILY PRN 12/20/20 02/05/21 History clsxcqblqhm-kfu-xvazetqza-hrb 1 tab PO QDL tab 12/20/20 02/05/21 History 149-hyalur 500 mg-500 mg-66.7 mg tablet (Jdtqumxymlh-Efbjjhmxkwb-JFI (with antiox)) multivit with 1 tab PO QDL 12/20/20 02/05/21 History oqlspkie-feau-RF-lutein 8 mg iron-400 mcg-300 mcg tablet (Centrum Silver Women) vitamins A,C,T-hlid-yiykdy 14,320 1 cap PO BID 12/20/20 02/05/21 History unit-226 mg-200 unit capsule (PreserVision AREDS) exemestane 25 mg tablet (Aromasin) 25 mg PO QDL 01/11/21 02/05/21 History fluoxetine 20 mg capsule 20 mg PO QAM 01/11/21 02/05/21 History fluticasone propionate 50 2 sprays INTNAS QAM 01/11/21 02/05/21 History mcg/actuation nasal spray,suspension levothyroxine 50 mcg tablet 50 mcg PO DAILYBB 01/11/21 02/05/21 History losartan 50 mg tablet 50 mg PO QAM 01/11/21 02/05/21 History acetaminophen 500 mg tablet 1,000 mg PO Q8 30 Days #180 tab 01/31/21 02/05/21 Rx (Tylenol Extra Strength) aspirin 81 mg tablet,delayed 81 mg PO BID 45 Days #90 tab 01/31/21 02/05/21 Rx release tramadol 50 mg tablet 50 mg PO Q4H PRN #40 tab 01/31/21 02/05/21 Rx acetaminophen 325 mg tablet 650 mg PO Q4H PRN MDD 3 GRAMS/24 02/05/21 02/05/21 History (Tylenol) HOURS lactobacillus combination no.4 3 3,000 mmu cells PO DAILY 02/05/21 02/05/21 History billion cell capsule (Probiotic) oxycodone 5 mg tablet 5 mg PO Q4H PRN 02/05/21 02/05/21 History simvastatin 20 mg tablet 20 mg PO HS 02/05/21 02/05/21 History Past Med/Surg History Medical History Cardiac murmur New onset Last stress ECHO 2018- showed no significant heart valve abnormalities GERD (gastroesophageal reflux disease) Well controlled and stable History of breast cancer Dx 2017; h/o lumpectomy + radiation No current issues Hypercholesterolemia Hypertension Hypothyroidism Laceration of right lower leg S/p laceration to right distal LE- 15 stitches (since removed) Dr. Michael hale LVH (left ventricular hypertrophy) follows with Dr. Koch Osteoarthritis Overactive bladder Surgical History History of breast biopsy History of cholecystectomy History of colonoscopy History of left knee replacement History of lumpectomy of left breast History of right knee surgery History of tonsillectomy and adenoidectomy Family History Unknown Aortic aneurysm Social History Smoking Status: Never smoker Second Hand Exposure: No; Hx Alcohol Use: Yes Alcohol type: wine Hx Substance Use: No Preferred Language: Tongan Communication Ability: Effective Speedometer Inspector Required: No Beliefs That Will Affect Care: None marital status: / Current Living Situation: Alone current occupational status: retired Feels Safe at Home: Yes Assistive Devices: Walker Review of Systems Review of Systems: Gen: Denies fevers, night sweats, rigors - describes excessive fatigue/weakness ENT: Denies congestion, throat pain, hearing loss Eyes: Denies acute visual changes CV: Denies CP, palpitations Pulmonary: Denies SOB, cough, wheezing GI: + persistent nausea, occasional vomiting since surgery Neuro: Denies acute or unilateral weakness, acute gait impairment, headache or acute visual changes Musculoskeletal: Minimal pain at surgical site Endocrine: Denies polydipsia, polyuria Skin: Denies acute rashes or ulcers - oozing from surgical wound has been present Physical Exam Physical Exam: General: AAO x 3, no distress ENT: No erythema or exudates, no thrush Eyes: ROSMERY, EOMI Head and neck: Normocephalic, atraumatic, No JVD, neck is supple. Chest/heart: Nontender, S1,2, RRR, no murmurs, no gallops Lungs: CTAB, no wheezing or crackles Abdomen: Nontender, nondistended, BS+ Neuro: AAO x 3, speech is clear, no unilateral weakness or loss of sensation, coordination intact Musculoskeletal: Did not mobilize R leg - no other joint inflammation Skin: Wound does not appear infected - there is some crusting of blood Extremities: Pulses +, minimal edema Results & Data Results & Data ([facility]) Vital Signs (Past 12 Hours) Vital Signs Temp Pulse Resp BP Pulse Ox 02/05/21 17:00 88 18 150/64 H 100 02/05/21 16:31 98 H 17 152/63 H 98 02/05/21 16:09 82 18 116/54 L 91 02/05/21 14:12 97.7 F 76 18 149/87 H 96 PG Care Time/CCT Total # of Minutes Spent Total Time Spent with Patient: Total time spent is greater than 50% in coordination of care (as documented) at patient's floor/unit and/or counseling patient: Coding Level of Care Code 14455 Initial Inpt Care Lvl 3 Diagnoses Status post total right knee replacement Z96.651 Anemia D64.9 Troponin I above reference range R77.8 Nausea and vomiting R11.2
--- NOTE | 2021-02-05 20:06 | CT Scan Report ---
CT abd pelvis IV con only CLINICAL HISTORY: new anemia, post op COMPARISON STUDY: None. TECHNIQUE: A dose lowering technique was utilized adhering to the principles of ALARA. CT DOSE: 492.26 mGy.cm FINDINGS: Lower chest: Limited evaluation of lung bases shows no evidence of acute abnormalities.. Liver: Diffuse decrease in attenuation of liver parenchyma is seen. 2.1 x 0.9 cm hypoattenuating lesi on is seen in subcapsular aspect of the right liver lobe. Minimal prominence of the central intrahepa tic biliary duct. Dilatation of the common bile duct is seen without evidence of intraluminal calculi and measuring up to 2.0 cm. Gallbladder: Is surgically absent. Spleen: Normal in size and attenuation. Pancreas: Unremarkable. Adrenal glands: Unremarkable. Kidneys: Multiple punctate nonobstructive calculi are seen within the right renal pelvis. Multiple peripelvic and cortical cysts are seen on the right. Multiple large peripelvic cysts are seen within left kidney with minimal prominence of collecting sys tem and no definite evidence of obstructive calculi. Left ureter is nondilated. There is heterogeneou sly enhancing 5.6 x 4.0 cm mass adjacent to superior cortex of the left kidney which contains regions of fat attenuation and no definite large calcifications. Pelvic viscera: Urinary bladder is partially collapsed which limits evaluation. Uterus is atrophic. B ilateral adnexal cysts are seen, largest is seen on the right and measures 4.0 x 4.7 cm in size. Bowel: Bowel loops are nondilated. Mild wall thickening and mucosal enhancement of the first and [place] portion of the duodenum is seen within minimal surrounding fat stranding which might represent inf lammatory process/duodenitis. Appendix is nondilated. Slightly dilated fluid-filled rectum is seen without significant surrounding inflammatory changes whi ch might represent diarrheal state or accumulation of blood. Peritoneum: There is no intraperitoneal free air or abdominal ascites. Vasculature: The abdominal aorta is normal in course and caliber. Adenopathy: None. Skeletal structures: Severe diffuse osteopenia. Mild multilevel degenerative changes of the spine. Gr jennifer 1 anterolisthesis of L4 on L5. IMPRESSION: 1. 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 No significant retroperitoneal lymphadenopathy seen which favors benign etiology of this lesion. Further evaluation with MRI is suggested. 2. Bilateral cortical and parapelvic cysts, multiple large parapelvic cysts are seen within left kid tomasz. 3. Mild inflammatory changes surrounding the first and second portion of duodenum which might repres ent duodenitis. 4. Hepatic steatosis. Status post cholecystectomy and dilatation of the common bile duct. Small hypo attenuating lesion within right lobe of the liver. 5. Bilateral adnexal cysts. 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 6. Fluid-filled rectum which could represent diarrheal state or rectal bleeding. Please correlate ab ove-mentioned findings with clinical presentation. 7. The rest of findings as detailed above. ACT 112: Positive. There are findings on this exam that require communication between the performing entity and the patient following Patient Test Result Information Act ([place] Act 112) guidelines. The above report was generated using voice recognition software. It may contain grammatical, syntax o r spelling errors. Electronically signed by: Marlin Patel DO 02/05/2021 8:05 PM
[2021-02-05] MEDS ORDERED: traMADol HCL 50 MG TABLET PO PRN (21:25)
[2021-02-05] MEDS ORDERED: FAMOTIDINE 20 MG TAB PO PRN (21:25)
[2021-02-05] MEDS ORDERED: ONDANSETRON INJ 2 MG/ML 2 ML VIAL IV PRN (21:25)
[2021-02-05] MEDS ORDERED: MELATONIN 3 MG TAB PO PRN (21:32)
[2021-02-05] MEDS: ACETAMINOPHEN 500 MG TAB PO SCH (22:17)
[2021-02-05] MEDS: SIMVASTATIN 20 MG TAB PO SCH (22:17)
[2021-02-05] MEDS: PANTOprazole 40 MG in SYRINGE 0 ML IV SCH (22:27)
[2021-02-05] MEDS: MoRPHine SULFATE 2 MG/ML CARP IV PRN (22:32)
[2021-02-06] MEDS: MoRPHine SULFATE 2 MG/ML CARP IV PRN ×2 (01:34→06:26)
[2021-02-06] MEDS ORDERED: SODIUM CHLORIDE 0.9% 250 ML IV PRN ×2 (01:34→18:07)
[2021-02-06 03:55] LABS: Hematocrit (blood only) 21.9 % (37-47); Hemoglobin 7.3 g/dL (12.0-16.0)
[2021-02-06] MEDS: ACETAMINOPHEN 500 MG TAB PO SCH ×3 (04:50→21:18)
[2021-02-06] MEDS: LEVOTHYROXINE SODIUM 50 MCG TABLET PO SCH (04:50)
[2021-02-06 06:03] LABS: Appearance Urine Cloudy (Clear); Bacteria Urine Automated Negative (Negative); Bilirubin Urine Negative (Negative); Blood Urine 3+ (Negative); Color Urine Yellow; Epithelial Cell Urine Auto 20-30 /lpf (0-5); Glucose Urine UA Negative (Negative); Ketones Urine Trace (Negative); Leukocyte Esterase Urine 1+ (Negative); Nitrite Urine Negative (Negative); Protein Urine 1+ (Negative); Specific Gravity Urine > 1.045 (1.000-1.030); Urobilinogen Urine Negative (Negative); WBC Urine Automated >30 /hpf (0-5); pH Urine 5.5 (4.5-7.5)
[2021-02-06 06:30] LABS: RBC Urine Automated 0-4 /hpf (0-4)
[2021-02-06 06:44] LABS: Hematocrit (blood only) 26.8 % (37-47); Hemoglobin 8.8 g/dL (12.0-16.0)
[2021-02-06 06:58] LABS: BUN Creatinine Ratio 37.6 (10-20); Calcium 7.9 mg/dl (8.5-10.1); Creatinine Clr Calc Pharmacy 42.1 ml/min; Est GFR (African American) 61.5 ml/min; Est GFR (Non-African American) 53.1 ml/min; Magnesium 2.1 mg/dl (1.8-2.4); Potassium 4.8 mmol/L (3.5-5.1)
[2021-02-06] MEDS: PANTOprazole 40 MG in SYRINGE 0 ML IV SCH (07:54)
[2021-02-06] MEDS ORDERED: KETOROLAC TROMETHAMINE 15 MG/ML VIAL IV ONE (08:07)
--- NOTE | 2021-02-06 08:52 | Electrocardiogram Report ---
Test Reason : Blood Pressure : / mmHG Vent. Rate : 095 BPM Atrial Rate : 095 BPM P-R Int : 146 ms QRS Dur : 082 ms QT Int : 362 ms P-R-T Axes : 055 033 187 degrees QTc Int : 454 ms Normal sinus rhythm with sinus arrhythmia Diffuse Nonspecific ST abnormality Abnormal ECG When compared with ECG of 18-JAN-2021 10:02, Vent. rate has increased BY 35 BPM Nonspecific T wave abnormality, worse in Inferior leads T wave inversion no longer evident in Anterior leads Confirmed by Zacarias Carlton ([id number]) on 02/06/2021 8:52:40 AM Referred By: ER Confirmed By:Zacarias Carlton
--- NOTE | 2021-02-06 09:27 | Electrocardiogram Report ---
Test Reason : Blood Pressure : / mmHG Vent. Rate : 082 BPM Atrial Rate : 082 BPM P-R Int : 122 ms QRS Dur : 080 ms QT Int : 394 ms P-R-T Axes : 040 005 171 degrees QTc Int : 460 ms Sinus rhythm with Premature atrial complexes Abnormal ECG When compared with ECG of 05-FEB-2021 15:07, Premature atrial complexes are now Present T-wave inversion in Anterior leads now present Confirmed by Zacarias Carlton ([id number]) on 02/06/2021 9:26:40 AM Referred By: REFERRED SELF Confirmed By:Zacarias Carlton
--- NOTE | 2021-02-06 09:36 | Cardiology Consultation ---
Date of Consultation February 06, 2021 Assessment & Plan (1) Anemia: Mrs. Nelson is an 80 year old female with a history of Hypertension, Hypercholesterolemia, LVH, Depression, Breast Cancer, Hypothyroidism, GERD, and DJD s/p R TKA 01/31/21 who was admitted on 02/05/21 with an Acute Blood Loss Anemia and GI Bleeding. Patient admits to a sore area in her midepigastrium which is likely secondary to retching/vomiting. Patient also complains of right knee pain. Nausea and vomiting have resolved. She had 4 bowel movements overnight and this morning. She is currently getting ice chips only and awaiting a GI Consult and likely endoscopic evaluation today. Patient underwent R TKA on 01/31/21 was recovering from her surgery at the [facility]. She subsequently developed nausea and vomiting for which prompted her ER visit on 02/05/21. Her Hgb on presentation was 5.9 gm/dl. Patient had a me lanotic stool in the ER. CT Scan of Abdomen/Pelvis is suggestive of Duodenitis and fluid filled rectum could represent blood. She has received 3 units of leukocyte reduced PRBC's so far -- and her Hgb has come up to 8.8 gm/dl. Additionally her initial Troponin I was elevated at 0.186 ng/ml with a follow-up value of 0.173 ng/ml. EKG 02/05/21 shows sinus rhythm with non-specific ST abnormalities. EKG 02/06/21 shows sinus rhythm with PAC's, T wave inversion in the anterolateral leads. 1. GI Consult ordered, likely will need an endoscopic evaluation. 2. Monitor serial H&H. Transfuse when indicated. 3. PPI is indicated. 4. Currently on Aspirin 81 mg b.i.d. for DVT prophylaxis - consider stopping Aspirin at least temporarily. (2) GI bleeding: -- Manage as outlined above. (3) Troponin I above reference range: Patient with a history of Hypertension and LVH who presented with a Hgb of 5.9 g/dl and her initial Troponin I was elevated at 0.186 ng/ml with a follow-up value of 0.173 ng/ml. EKG 02/05/21 shows sinus rhythm with non-specific ST abnormalities. EKG 02/06/21 shows sinus rhythm with PAC's, T wave inversion in the anterolateral leads. Patient has not had any anginal complaints/symptoms. 1. Elevated Troponin is likely secondary myocardial O2 supply/demand mismatch in the presence of a severe anemia. 2. Continue Losartan 50 mg daily. 3. Continue Simvastatin 20 mg daily. 4. Echocardiogram to rule out wall motion abnormalities. (4) LVH (left ventricular hypertrophy): -- Moderate concentric LVH on Stress Echocardiogram January 2019. -- Systolic murmur is likely a flow murmur related to anemia, hypovolemia. (5) Hypertension: Her BP is well controlled. -- Continue Losartan 50 mg daily. (6) Hypercholesterolemia: -- Continue Simvastatin 20 mg daily. History of Present Illness Reason for Consultation: -- Elevated Troponin I. -- Murmur. Requesting Physician: Autumn Jimenez MD Attending Physician: Gregorio Koch MD History of Present Illness Mrs. Nelson is an 80 year old female with a history of Hypertension, Hypercholesterolemia, LVH, Depression, Breast Cancer, Hypothyroidism, GERD, and DJD s/p R TKA 01/31/21 who was recovering from her surgery at the [facility] and developed nausea and vomiting for which she came into the ER on 02/05/21. Her Hgb on presentation was 5.9 gm/dl. Patient had a melanotic stool in the ER. CT Scan of Abdomen/Pelvis is suggestive of Duodenitis and fluid filled rectum could represent blood. She has received 3 units of leukocyte reduced PRBC's so far -- and her Hgb has come up to 8.8 gm/dl. Additionally her initial Troponin I was elevated at 0.186 ng/ml with a follow-up value of 0.173 ng/ml. EKG 02/05/21 shows sinus rhythm with non-specific ST abnormalities. EKG 02/06/21 shows sinus rhythm with PAC's, T wave inversion in the anterolateral leads. Patient admits to a sore area in her midepigastrium which is likely secondary to retching/vomiting. Patient continues to complain of right knee pain. Nausea and vomiting have resolved. She had 4 bowel movements overnight and this morning. She is currently getting ice chips only and awaiting a GI Consult and likely endoscopic evaluation today. She denies any chest pain, heaviness, tightness, or pressure. She denies any neck, jaw, back, or arm pain. She denies any diaphoresis. She denies any SOB, COELLO, orthopnea, or PND. Patient further denies any syncope or near syncope. Allergies Allergy/AdvReac Type Severity Reaction Status Date / Time NSAIDS (Non-Steroidal Allergy Severe RENAL Verified 02/05/21 15:05 Anti-Inflamma FAILURE adhesive Allergy Mild RASH Verified 02/05/21 15:05 latex Allergy Mild RASH Verified 02/05/21 15:05 procaine Allergy Mild prolonged Verified 02/05/21 15:05 effect amoxicillin AdvReac Intermediate Diarrhea Verified 02/05/21 15:05 Home Medications Medication Instructions Recorded Confirmed Type lactase [Lactaid Fast Act] See Rx Instructions PO .COMPLEX PRN 03/23/19 02/05/21 History omega-3 fatty acids 500 mg capsule 1,000 mg PO QDL cap 05/05/19 02/05/21 History calcium carbonate 500 mg (1,250 1 tab PO QDL tab 12/18/19 02/05/21 History mg)-vitamin D3 200 unit tablet (Os-Glenn 500 + D3) cyanocobalamin (vitamin B-12) 500 1,000 mcg PO QDL tab 12/18/19 02/05/21 History mcg tablet melatonin 5 mg capsule 5 mg PO HS PRN cap 12/18/19 02/05/21 History cetirizine 10 mg tablet (Zyrtec) 5 mg PO DAILY PRN 04/08/20 02/05/21 History famotidine 20 mg tablet 20 mg PO DAILY PRN 12/20/20 02/05/21 History xenkruetbsa-wqq-oxzvyxtqr-hrb 1 tab PO QDL tab 12/20/20 02/05/21 History 149-hyalur 500 mg-500 mg-66.7 mg tablet (Cecklfyfrcl-Bjnwcblqvho-JHS (with antiox)) multivit with 1 tab PO QDL 12/20/20 02/05/21 History zwmyrpri-txmr-ML-lutein 8 mg iron-400 mcg-300 mcg tablet (Centrum Silver Women) vitamins A,C,S-ttli-oadkdn 14,320 1 cap PO BID 12/20/20 02/05/21 History unit-226 mg-200 unit capsule (PreserVision AREDS) exemestane 25 mg tablet (Aromasin) 25 mg PO QDL 01/11/21 02/05/21 History fluoxetine 20 mg capsule 20 mg PO QAM 01/11/21 02/05/21 History fluticasone propionate 50 2 sprays INTNAS QAM 01/11/21 02/05/21 History mcg/actuation nasal spray,suspension levothyroxine 50 mcg tablet 50 mcg PO DAILYBB 01/11/21 02/05/21 History losartan 50 mg tablet 50 mg PO QAM 01/11/21 02/05/21 History acetaminophen 500 mg tablet 1,000 mg PO Q8 30 Days #180 tab 01/31/21 02/05/21 Rx (Tylenol Extra Strength) aspirin 81 mg tablet,delayed 81 mg PO BID 45 Days #90 tab 01/31/21 02/05/21 Rx release tramadol 50 mg tablet 50 mg PO Q4H PRN #40 tab 01/31/21 02/05/21 Rx acetaminophen 325 mg tablet 650 mg PO Q4H PRN MDD 3 /24 02/05/21 02/05/21 History (Tylenol) HOURS lactobacillus combination no.4 3 3,000 mmu cells PO DAILY 02/05/21 02/05/21 History billion cell capsule (Probiotic) oxycodone 5 mg tablet 5 mg PO Q4H PRN 02/05/21 02/05/21 History simvastatin 20 mg tablet 20 mg PO HS 02/05/21 02/05/21 History Patient History Medical History Cardiac murmur New onset Last stress ECHO 2018- showed no significant heart valve abnormalities GERD (gastroesophageal reflux disease) Well controlled and stable History of breast cancer Dx 2017; h/o lumpectomy + radiation No current issues Hypercholesterolemia Hypertension Hypothyroidism Laceration of right lower leg S/p laceration to right distal LE- 15 stitches (since removed) Dr. Rodriguez aware LVH (left ventricular hypertrophy) follows with Dr. Koch Osteoarthritis Overactive bladder Surgical History History of breast biopsy History of cholecystectomy History of colonoscopy History of left knee replacement History of lumpectomy of left breast History of right knee surgery History of tonsillectomy and adenoidectomy Family History Unknown Aortic aneurysm Social History Smoking Status: Never smoker Second Hand Exposure: No; Hx Alcohol Use: Yes Alcohol type: wine Hx Substance Use: No Preferred Language: Bahamian Communication Ability: Effective Acting Manager Required: No Beliefs That Will Affect Care: None marital status: / Current Living Situation: Alone current occupational status: retired Other Information That Helps Us Care for You: No Feels Safe at Home: Yes Safety Concerns: Feels Safe At This Time Assistive Devices: Glasses and Walker Physical Exam Physical Exam: GENERAL: Patient in no acute distress, complexion is pale. HEENT: Head is atraumatic, normocephalic. EOM's intact. Facies symmetric. No perioral cyanosis. NECK: No JVD. JVP is at the level of the clavicle sitting upright. Carotid upstrokes are + 2 bilaterally. No bruits are noted. CHEST/LUNGS: Clear to auscultation throughout all lung montano. No wheezes, rales, or crackles. CVS: S1 and S2 are regular with a grade 1/6 basal systolic ejection murmur. No diastolic murmurs. No gallops or rubs. PMI is nondisplaced. No lifts, heaves, or thrills. No abdominal aortic or renal bruits. ABDOMINAL EXAM: Bowel sounds are present. No masses, organomegaly, or tenderness. EXTREMITIES: No clubbing or cyanosis. No edema. Intact radial pulses bilaterally. Right knee is dressed. NEUROLOGIC EXAM: Patient is awake, alert, and oriented. Pleasant and cooperative. Answers questions appropriately. Speech is clear. TELEMETRY: -- Sinus rhythm with PAC's, HR is 70's to 80's overnight. Results & Data ([facility]) Vital Signs (Past 12 Hours) Vital Signs Temp Pulse Pulse Resp BP BP Pulse Ox 02/06/21 08:02 36.6 C 71 20 120/63 98 02/06/21 07:11 83 02/06/21 03:47 36.8 C 87 16 107/71 97 02/06/21 02:51 36.6 C 79 16 124/83 95 02/06/21 02:21 37.1 C 89 18 115/76 97 02/06/21 02:06 37.1 C 94 H 18 117/73 94 02/06/21 01:37 37.2 C 98 H 18 122/75 94 02/06/21 01:30 37.3 C 104 H 20 122/75 98 02/06/21 00:59 36.8 C 112 H 20 101/56 L 100 02/06/21 00:07 102 H 02/05/21 23:59 36.8 C 98 H 18 99/54 L 92 02/05/21 23:29 36.5 C 87 18 105/64 92 02/05/21 23:14 37.3 C 97 H 20 109/66 94 02/05/21 22:52 37 C 102 H 20 91/61 L 95 02/05/21 22:25 37.4 C 87 18 119/72 96 02/05/21 21:42 37.6 C H 96 H 18 133/55 L 95 Laboratory Results Laboratory Results - last 24 hr 02/05/21 02/05/21 02/05/21 16:49 16:49 17:45 WBC 9.15 RBC 2.13 L Hgb 5.9 L* Hct 18.5 L* MCV 86.9 MCH 27.7 MCHC 31.9 L RDW Std Deviation 45.3 RDW Coeff of Omar 14.3 Plt Count 267 MPV 8.9 Immature Gran % (Auto) 1.9 Neut % (Auto) 81.5 Lymph % (Auto) 8.4 [place] % (Auto) 6.9 Eos % (Auto) 1.1 Baso % (Auto) 0.2 Neut # (Auto) 7.46 H Lymph # (Auto) 0.77 L [place] # (Auto) 0.63 H Eos # (Auto) 0.10 Baso # (Auto) 0.02 Immature Gran # (Auto) 0.17 H Polychromasia 1+ Sodium 138 Potassium 4.4 Chloride 106 Carbon Dioxide 26 Anion Gap 6.0 BUN 31 H Creatinine 0.91 Est Cr Clr Drug Dosing Not Reportable Est GFR ( Amer) 68.1 Est GFR (Non-Af Amer) 58.8 BUN/Creatinine Ratio 33.9 H Glucose 124 H Calcium 7.8 L Magnesium Total Bilirubin 0.6 AST 15 ALT 18 Alkaline Phosphatase 58 Troponin I 0.186 H* Total Protein 5.1 L Albumin 2.4 L Globulin 2.7 Albumin/Globulin Ratio 0.9 Lipase 170 Urine Color Urine Appearance Urine pH Ur Specific Morris Urine Protein Urine Glucose (UA) Urine Ketones Urine Blood Urine Nitrite Urine Bilirubin Urine Urobilinogen Ur Leukocyte Esterase Urine WBC (Auto) Urine RBC (Auto) U Hyaline Cast (Auto) U Epithel Cells (Auto) Urine Bacteria (Auto) Urine Yeast Nasal Screen MRSA (PCR) COVID-19 Eval Order SARS-CoV-2 (PCR) Blood Type O Positive Antibody Screen NEGATIVE Crossmatch See Detail 02/05/21 02/05/21 02/05/21 18:42 18:42 23:00 WBC RBC Hgb Hct MCV MCH MCHC RDW Std Deviation RDW Coeff of Omar Plt Count MPV Immature Gran % (Auto) Neut % (Auto) Lymph % (Auto) [place] % (Auto) Eos % (Auto) Baso % (Auto) Neut # (Auto) Lymph # (Auto) [place] # (Auto) Eos # (Auto) Baso # (Auto) Immature Gran # (Auto) Polychromasia Sodium Potassium Chloride Carbon Dioxide Anion Gap BUN Creatinine Est Cr Clr Drug Dosing Est GFR ( Amer) Est GFR (Non-Af Amer) BUN/Creatinine Ratio Glucose Calcium Magnesium Total Bilirubin AST ALT Alkaline Phosphatase Troponin I Total Protein Albumin Globulin Albumin/Globulin Ratio Lipase Urine Color Urine Appearance Urine pH Ur Specific Morris Urine Protein Urine Glucose (UA) Urine Ketones Urine Blood Urine Nitrite Urine Bilirubin Urine Urobilinogen Ur Leukocyte Esterase Urine WBC (Auto) Urine RBC (Auto) U Hyaline Cast (Auto) U Epithel Cells (Auto) Urine Bacteria (Auto) Urine Yeast Nasal Screen MRSA (PCR) Negative COVID-19 Eval Order Covid19 at [facility] SARS-CoV-2 (PCR) NEGATIVE Blood Type Antibody Screen Crossmatch 02/06/21 02/06/21 02/06/21 01:53 05:55 05:59 WBC RBC Hgb 7.3 L Hct 21.9 L MCV MCH MCHC RDW Std Deviation RDW Coeff of Omar Plt Count MPV Immature Gran % (Auto) Neut % (Auto) Lymph % (Auto) [place] % (Auto) Eos % (Auto) Baso % (Auto) Neut # (Auto) Lymph # (Auto) [place] # (Auto) Eos # (Auto) Baso # (Auto) Immature Gran # (Auto) Polychromasia Sodium 139 Potassium 4.8 Chloride 109 H Carbon Dioxide 25 Anion Gap 5.0 BUN 37 H Creatinine 0.99 Est Cr Clr Drug Dosing 42.1 Est GFR ( Amer) 61.5 Est GFR (Non-Af Amer) 53.1 BUN/Creatinine Ratio 37.6 H Glucose 129 H Calcium 7.9 L Magnesium 2.1 Total Bilirubin AST ALT Alkaline Phosphatase Troponin I Total Protein Albumin Globulin Albumin/Globulin Ratio Lipase Urine Color Yellow Urine Appearance Cloudy A Urine pH 5.5 Ur Specific Morris > 1.045 H Urine Protein 1+ H Urine Glucose (UA) Negative Urine Ketones Trace H Urine Blood 3+ H Urine Nitrite Negative Urine Bilirubin Negative Urine Urobilinogen Negative Ur Leukocyte Esterase 1+ H Urine WBC (Auto) >30 H Urine RBC (Auto) 0-4 U Hyaline Cast (Auto) 5-10 H U Epithel Cells (Auto) 20-30 H Urine Bacteria (Auto) Negative Urine Yeast Budding A Nasal Screen MRSA (PCR) COVID-19 Eval Order SARS-CoV-2 (PCR) Blood Type Antibody Screen Crossmatch 02/06/21 02/06/21 05:59 06:51 WBC RBC Hgb 8.8 L Hct 26.8 L MCV MCH MCHC RDW Std Deviation RDW Coeff of Omar Plt Count MPV Immature Gran % (Auto) Neut % (Auto) Lymph % (Auto) [place] % (Auto) Eos % (Auto) Baso % (Auto) Neut # (Auto) Lymph # (Auto) [place] # (Auto) Eos # (Auto) Baso # (Auto) Immature Gran # (Auto) Polychromasia Sodium Potassium Chloride Carbon Dioxide Anion Gap BUN Creatinine Est Cr Clr Drug Dosing Est GFR ( Amer) Est GFR (Non-Af Amer) BUN/Creatinine Ratio Glucose Calcium Magnesium Total Bilirubin AST ALT Alkaline Phosphatase Troponin I 0.173 H* Total Protein Albumin Globulin Albumin/Globulin Ratio Lipase Urine Color Urine Appearance Urine pH Ur Specific Morris Urine Protein Urine Glucose (UA) Urine Ketones Urine Blood Urine Nitrite Urine Bilirubin Urine Urobilinogen Ur Leukocyte Esterase Urine WBC (Auto) Urine RBC (Auto) U Hyaline Cast (Auto) U Epithel Cells (Auto) Urine Bacteria (Auto) Urine Yeast Nasal Screen MRSA (PCR) COVID-19 Eval Order SARS-CoV-2 (PCR) Blood Type Antibody Screen Crossmatch Medications Administered Medications lactase [Lactaid Fast Act] See Rx Instructions PO .COMPLEX PRN 03/23/19 [History Confirmed 02/05/21] omega-3 fatty acids 500 mg capsule 1,000 mg PO QDL cap 05/05/19 [History Confirmed 02/05/21] calcium carbonate 500 mg (1,250 mg)-vitamin D3 200 unit tablet (Os-Glenn 500 + D3) 1 tab PO QDL tab 12/18/19 [History Confirmed 02/05/21] cyanocobalamin (vitamin B-12) 500 mcg tablet 1,000 mcg PO QDL tab 12/18/19 [History Confirmed 02/05/21] melatonin 5 mg capsule 5 mg PO HS PRN cap 12/18/19 [History Confirmed 02/05/21] cetirizine 10 mg tablet (Zyrtec) 5 mg PO DAILY PRN 04/08/20 [History Confirmed 02/05/21] famotidine 20 mg tablet 20 mg PO DAILY PRN 12/20/20 [History Confirmed 02/05/21] ilehedafiqq-fom-wtnvrxuzk-hrb 149-hyalur 500 mg-500 mg-66.7 mg tablet (Nknxdddyttw-Wgdrkormurp-ZAP (with antiox)) 1 tab PO QDL tab 12/20/20 [History Confirmed 02/05/21] multivit with xxwwtkph-qvyf-EQ-lutein 8 mg iron-400 mcg-300 mcg tablet (Centrum Silver Women) 1 tab PO QDL 12/20/20 [History Confirmed 02/05/21] vitamins A,C,L-ysem-eiyetp 14,320 unit-226 mg-200 unit capsule (PreserVision AREDS) 1 cap PO BID 12/20/20 [History Confirmed 02/05/21] exemestane 25 mg tablet (Aromasin) 25 mg PO QDL 01/11/21 [History Confirmed 02/05/21] fluoxetine 20 mg capsule 20 mg PO QAM 01/11/21 [History Confirmed 02/05/21] fluticasone propionate 50 mcg/actuation nasal spray,suspension 2 sprays INTNAS QAM 01/11/21 [History Confirmed 02/05/21] levothyroxine 50 mcg tablet 50 mcg PO DAILYBB 01/11/21 [History Confirmed 02/05/21] losartan 50 mg tablet 50 mg PO QAM 01/11/21 [History Confirmed 02/05/21] acetaminophen 500 mg tablet (Tylenol Extra Strength) 1,000 mg PO Q8 30 Days #180 tab 07/20/21 [Rx Confirmed 02/05/21] aspirin 81 mg tablet,delayed release 81 mg PO BID 45 Days #90 tab 01/31/21 [Rx Confirmed 02/05/21] tramadol 50 mg tablet 50 mg PO Q4H PRN #40 tab 01/31/21 [Rx Confirmed 02/05/21] acetaminophen 325 mg tablet (Tylenol) 650 mg PO Q4H PRN MDD 3 GRAMS/24 HOURS 02/05/21 [History Confirmed 02/05/21] lactobacillus combination no.4 3 billion cell capsule (Probiotic) 3,000 mmu cells PO DAILY 02/05/21 [History Confirmed 02/05/21] oxycodone 5 mg tablet 5 mg PO Q4H PRN 02/05/21 [History Confirmed 02/05/21] simvastatin 20 mg tablet 20 mg PO HS 02/05/21 [History Confirmed 02/05/21] Home Medications Acetaminophen (Acetaminophen 500 Mg Tab) 500 mg PO Q8 JORGE Stop: 03/07/21 21:59 Last Admin: 02/06/21 04:50 Dose: Not Given Documented by: Cyanocobalamin (Cyanocobalamin 500 Mcg Tablet (Vitamin B-12)) 1,000 mcg PO QDL [facility] Stop: 03/08/21 11:29 Famotidine (Famotidine 20 Mg Tab) 20 mg PO DAILY PRN PRN Reason: gerd Stop: 03/07/21 21:24 Fluoxetine HCl (Fluoxetine Hcl 20 Mg Cap) 20 mg PO QAM JORGE Stop: 03/08/21 08:59 Pantoprazole Sodium 40 mg/ (Syringe) 10 mls @ 5 mls/min IV BID JORGE Stop: 03/07/21 21:29 Last Admin: 02/06/21 07:54 Dose: 5 mls/min Documented by: Sodium Chloride (Nss) 250 mls @ 15 mls/hr IV .[id number] PRN PRN Reason: For Transfusion Stop: 02/06/21 11:34 Levothyroxine Sodium (Levothyroxine Sodium 50 Mcg Tablet) 50 mcg PO DAILYBB JORGE Stop: 03/08/21 06:29 Last Admin: 02/06/21 04:50 Dose: Not Given Documented by: Melatonin (Melatonin 3 Mg Tab) 4.5 mg PO HSZ PRN; Protocol PRN Reason: Sleep Stop: 03/07/21 21:31 Miscellaneous (Exemestane [Aromasin] Order Awaiting Action) 1 ea N/A QS [facility] Stop: 03/08/21 00:00 Last Admin: 02/06/21 07:12 Dose: Not Given Documented by: Morphine Sulfate (Morphine Sulfate 2 Mg/Ml Carp) 2 mg IV Q30M PRN PRN Reason: Chest Pain Stop: 02/19/21 21:24 Last Admin: 02/06/21 06:26 Dose: 2 mg Documented by: Multivitamins/Minerals (Cerovite Adv Formula Tab) 1 tab PO QDL [facility] Stop: 03/08/21 11:29 Ondansetron HCl (Ondansetron Inj 2 Mg/Ml 2 Ml Vial) 4 mg IV Q8 PRN PRN Reason: Nausea Stop: 03/07/21 21:24 Last Admin: 02/06/21 01:34 Dose: 4 mg Documented by: Oxycodone HCl (Oxycodone Hcl Ir 5 Mg Tab (Immediate Release)) 5 mg PO Q4H PRN PRN Reason: Pain (Scale Score 7-10) Stop: 02/19/21 21:24 Simvastatin (Simvastatin 20 Mg Tab) 20 mg PO HS [facility] Stop: 03/07/21 21:24 Last Admin: 02/05/21 22:17 Dose: Not Given Documented by: Tramadol HCl (Tramadol Hcl 50 Mg Tablet) 50 mg PO Q4H PRN PRN Reason: pain Stop: 03/07/21 21:24 PG Care Time/CCT Total # of Minutes Spent Total Time Spent with Patient: Total time spent is greater than 50% in coordination of care (as documented) at patient's floor/unit and/or counseling patient:40 Coding Level of Care Code 54171 Initial Inpt Care Lvl 3 Diagnoses Anemia D64.9 GI bleeding K92.2 Troponin I above reference range R77.8 LVH (left ventricular hypertrophy) I51.7 Hypertension I10 Hypercholesterolemia E78.00 Time Spent (min) 55
[2021-02-06] MEDS: FLUoxetine HCL 20 MG CAP PO SCH (10:02)
[2021-02-06] MEDS: CYANOCOBALAMIN 500 MCG TABLET (VITAMIN B-12) PO SCH (11:26)
[2021-02-06] MEDS: CEROVITE ADV FORMULA TAB PO SCH (11:26)
[2021-02-06 11:29] LABS: Hematocrit (blood only) 26.5 % (37-47); Hemoglobin 8.7 g/dL (12.0-16.0)
--- NOTE | 2021-02-06 12:52 | Gastrointestinal Consultation ---
Date of Consultation February 06, 2021 Assessment & Plan (1) GI bleeding: (2) Abnormal CT of the abdomen: 1. NPO for now. 2. Continue Protonix 40 mg BID. 3. EGD for further evaluation. 4. Further recommendations pending results of testing. Thank you for allowing us to participate in the care of this pleasant patient. If you have any questions or concerns, please do not hesitate to contact us. Supervising Physician Co-Signing Physician Notes Agree with OSCAR Martins as above Abd: Soft, NT, ND, +BS Continue current therapy and supportive care Proceed with EGD now. History of Present Illness Reason for Consultation: GIB Requesting Physician: Dr. Acevedo Attending Physician: Autumn Jimenez MD History of Present Illness Patient is a 80 y.o. female status post right TKA 01/31 admitted with acute blood loss anemia. She denies any abdominal pain, nausea or vomiting but endorses rectal bleeding which she states began yesterday. She had been taking low dose aspirin after surgery. No other anticoagulation. She is being resuscitated with [address] ap with duodenal thickening and blood in the colon. Labs from this morning were reviewed and as follows: white blood cell count 9.15, hemoglobin 8.7, hematocrit 26.5%, platelets 267, sodium 139, potassium 4.8, BUN 37, creatinine 0.99. Troponin 0.173. Cardiology has seen and evaluated the patient, cleared the patient for endoscopy. She has been made NPO and initiated on Pantoprazole 40 mg IV BID. Allergies Allergy/AdvReac Type Severity Reaction Status Date / Time NSAIDS (Non-Steroidal Allergy Severe RENAL Verified 02/05/21 15:05 Anti-Inflamma FAILURE adhesive Allergy Mild RASH Verified 02/05/21 15:05 latex Allergy Mild RASH Verified 02/05/21 15:05 procaine Allergy Mild prolonged Verified 02/05/21 15:05 effect amoxicillin AdvReac Intermediate Diarrhea Verified 02/05/21 15:05 Home Medications Medication Instructions Recorded Confirmed Type lactase [Lactaid Fast Act] See Rx Instructions PO .COMPLEX PRN 03/23/19 02/05/21 History omega-3 fatty acids 500 mg capsule 1,000 mg PO QDL cap 05/05/19 02/05/21 History calcium carbonate 500 mg (1,250 1 tab PO QDL tab 12/18/19 02/05/21 History mg)-vitamin D3 200 unit tablet (Os-Glenn 500 + D3) cyanocobalamin (vitamin B-12) 500 1,000 mcg PO QDL tab 12/18/19 02/05/21 History mcg tablet melatonin 5 mg capsule 5 mg PO HS PRN cap 12/18/19 02/05/21 History cetirizine 10 mg tablet (Zyrtec) 5 mg PO DAILY PRN 04/08/20 02/05/21 History famotidine 20 mg tablet 20 mg PO DAILY PRN 12/20/20 02/05/21 History hncslixvngk-aky-idippoolt-hrb 1 tab PO QDL tab 12/20/20 02/05/21 History 149-hyalur 500 mg-500 mg-66.7 mg tablet (Vdydezcujko-Mcmhixzjnls-LJS (with antiox)) multivit with 1 tab PO QDL 12/20/20 02/05/21 History sshpikeg-viao-BR-lutein 8 mg iron-400 mcg-300 mcg tablet (Centrum Silver Women) vitamins A,C,P-fjsu-bptenu 14,320 1 cap PO BID 12/20/20 02/05/21 History unit-226 mg-200 unit capsule (PreserVision AREDS) exemestane 25 mg tablet (Aromasin) 25 mg PO QDL 01/11/21 02/05/21 History fluoxetine 20 mg capsule 20 mg PO QAM 01/11/21 02/05/21 History fluticasone propionate 50 2 sprays INTNAS QAM 01/11/21 02/05/21 History mcg/actuation nasal spray,suspension levothyroxine 50 mcg tablet 50 mcg PO DAILYBB 01/11/21 02/05/21 History losartan 50 mg tablet 50 mg PO QAM 01/11/21 02/05/21 History acetaminophen 500 mg tablet 1,000 mg PO Q8 30 Days #180 tab 01/31/21 02/05/21 Rx (Tylenol Extra Strength) aspirin 81 mg tablet,delayed 81 mg PO BID 45 Days #90 tab 01/31/21 02/05/21 Rx release tramadol 50 mg tablet 50 mg PO Q4H PRN #40 tab 01/31/21 02/05/21 Rx acetaminophen 325 mg tablet 650 mg PO Q4H PRN MDD 3 GRAMS/24 02/05/21 02/05/21 History (Tylenol) HOURS lactobacillus combination no.4 3 3,000 mmu cells PO DAILY 02/05/21 02/05/21 History billion cell capsule (Probiotic) oxycodone 5 mg tablet 5 mg PO Q4H PRN 02/05/21 02/05/21 History simvastatin 20 mg tablet 20 mg PO HS 02/05/21 02/05/21 History Patient History Medical History Cardiac murmur New onset Last stress ECHO 2019- showed no significant heart valve abnormalities GERD (gastroesophageal reflux disease) Well controlled and stable History of breast cancer Dx 2017; h/o lumpectomy + radiation No current issues Hypercholesterolemia Hypertension Hypothyroidism Laceration of right lower leg S/p laceration to right distal LE- 15 stitches (since removed) Dr. Michael hale LVH (left ventricular hypertrophy) follows with Dr. Koch Osteoarthritis Overactive bladder Surgical History History of breast biopsy History of cholecystectomy History of colonoscopy History of left knee replacement History of lumpectomy of left breast History of right knee surgery History of tonsillectomy and adenoidectomy Family History Unknown Aortic aneurysm Social History Smoking Status: Never smoker Second Hand Exposure: No; Do You Dip or Chew Tobacco: No; Hx Alcohol Use: Yes Alcohol type: wine Hx Substance Use: No Preferred Language: Zambian Communication Ability: Effective Assisted Living Associate Required: No Beliefs That Will Affect Care: None marital status: / Current Living Situation: Alone current occupational status: retired How many Children do You have: 2 Other Information That Helps Us Care for You: No Feels Safe at Home: Yes Safety Concerns: Feels Safe At This Time Assistive Devices: Glasses and Walker Review of Systems Constitutional: no fever and no chills Respiratory: no cough and no dyspnea Cardiovascular: no chest pain and no palpitations Gastrointestinal: as per Subjective / HPI Physical Exam Constitutional: WD/WN, vitals as above Eyes: EOM intact bilaterally Neck: normal appearance Respiratory: normal respiratory effort, lungs clear to auscultation Cardiovascular: Rate/Rhythm: regular rate and regular rhythm Heart Sounds: + murmur Gastrointestinal (Abdomen): Inspection/Auscultation: normal bowel sounds Percussion/Palpation: abdomen soft; abdomen nontender Musculoskeletal: Extremities: no cyanosis no lower extremity edema Skin: no rashes, warm and dry Neurologic: moves all extremities Psychiatric: A+Ox3, euthymic affect Results & Data ([facility]) Vital Signs (Past 12 Hours) Vital Signs Temp Pulse Pulse Resp BP BP Pulse Ox 02/06/21 08:02 36.6 C 71 20 120/63 98 02/06/21 07:11 83 02/06/21 03:47 36.8 C 87 16 107/71 97 02/06/21 02:51 36.6 C 79 16 124/83 95 02/06/21 02:21 37.1 C 89 18 115/76 97 02/06/21 02:06 37.1 C 94 H 18 117/73 94 02/06/21 01:37 37.2 C 98 H 18 122/75 94 02/06/21 01:30 37.3 C 104 H 20 122/75 98 02/06/21 00:59 36.8 C 112 H 20 101/56 L 100 Laboratory Results Abnormal lab results 02/05/21 02/05/21 02/05/21 Range/Units 16:49 16:49 17:45 RBC 2.13 L (4.2-5.4) M/uL Hgb 5.9 L* (12.0-16.0) g/dL Hct 18.5 L* (37-47) % MCHC 31.9 L (32-36) g/dL Neut # (Auto) 7.46 H (1.4-6.5) K/uL Lymph # (Auto) 0.77 L (1.2-3.4) K/uL [place] # (Auto) 0.63 H (0.11-0.59) K/uL Immature Gran # (Auto) 0.17 H (0.00-0.02) K/uL Chloride (98-107) mmol/L BUN 31 H (7-18) mg/dl BUN/Creatinine Ratio 33.9 H (10-20) Glucose 124 H (70-99) mg/dl Calcium 7.8 L (8.5-10.1) mg/dl Troponin I 0.186 H* (0-0.045) ng/ml Total Protein 5.1 L (6.4-8.2) gm/dl Albumin 2.4 L (3.4-5.0) gm/dl Urine Appearance (Clear) Ur Specific [place] (1.000-1.030) Urine Protein (Negative) Urine Ketones (Negative) Urine Blood (Negative) Ur Leukocyte Esterase (Negative) Urine WBC (Auto) (0-5) /hpf U Hyaline Cast (Auto) (0-5) /lpf U Epithel Cells (Auto) (0-5) /lpf Urine Yeast (None Prsent) Crossmatch See Detail 02/06/21 02/06/21 02/06/21 Range/Units 01:53 05:55 05:59 RBC (4.2-5.4) M/uL Hgb 7.3 L (12.0-16.0) g/dL Hct 21.9 L (37-47) % MCHC (32-36) g/dL Neut # (Auto) (1.4-6.5) K/uL Lymph # (Auto) (1.2-3.4) K/uL [place] # (Auto) (0.11-0.59) K/uL Immature Gran # (Auto) (0.00-0.02) K/uL Chloride 109 H (98-107) mmol/L BUN 37 H (7-18) mg/dl BUN/Creatinine Ratio 37.6 H (10-20) Glucose 129 H (70-99) mg/dl Calcium 7.9 L (8.5-10.1) mg/dl Troponin I (0-0.045) ng/ml Total Protein (6.4-8.2) gm/dl Albumin (3.4-5.0) gm/dl Urine Appearance Cloudy A (Clear) Ur Specific [place] > 1.045 H (1.000-1.030) Urine Protein 1+ H (Negative) Urine Ketones Trace H (Negative) Urine Blood 3+ H (Negative) Ur Leukocyte Esterase 1+ H (Negative) Urine WBC (Auto) >30 H (0-5) /hpf U Hyaline Cast (Auto) 5-10 H (0-5) /lpf U Epithel Cells (Auto) 20-30 H (0-5) /lpf Urine Yeast Budding A (None Prsent) Crossmatch 02/06/21 02/06/21 02/06/21 Range/Units 05:59 06:51 11:09 RBC (4.2-5.4) M/uL Hgb 8.8 L 8.7 L (12.0-16.0) g/dL Hct 26.8 L 26.5 L (37-47) % MCHC (32-36) g/dL Neut # (Auto) (1.4-6.5) K/uL Lymph # (Auto) (1.2-3.4) K/uL [place] # (Auto) (0.11-0.59) K/uL Immature Gran # (Auto) (0.00-0.02) K/uL Chloride (98-107) mmol/L BUN (7-18) mg/dl BUN/Creatinine Ratio (10-20) Glucose (70-99) mg/dl Calcium (8.5-10.1) mg/dl Troponin I 0.173 H* (0-0.045) ng/ml Total Protein (6.4-8.2) gm/dl Albumin (3.4-5.0) gm/dl Urine Appearance (Clear) Ur Specific [place] (1.000-1.030) Urine Protein (Negative) Urine Ketones (Negative) Urine Blood (Negative) Ur Leukocyte Esterase (Negative) Urine WBC (Auto) (0-5) /hpf U Hyaline Cast (Auto) (0-5) /lpf U Epithel Cells (Auto) (0-5) /lpf Urine Yeast (None Prsent) Crossmatch PG Care Time/CCT Total # of Minutes Spent Total Time Spent with Patient: Total time spent is greater than 50% in coordination of care (as documented) at patient's floor/unit and/or counseling patient: Coding Level of Care Code 90938 Initial Inpt Care Lvl 3 Diagnoses GI bleeding K92.[address] of the abdomen R93.5
--- NOTE | 2021-02-06 13:36 | Hospitalist Progress Note ---
Date of Service February 06, 2021 Assessment & Plan (1) Acute blood loss anemia: Plan: Kari Nelson is an 80 yo female with PMHx significant for recent right TKA on 01/31, HTN and hypothyroidism who was admitted to [facility] on 02/05 for acute blood loss anemia likely due to upper GIB. Acute Blood Loss Anemia sec to GI bleed Acute-onset melena/hematochezia and worsening fatigue in context of increased NSAID use, Hgb 5.9 on admission --> suspect acute upper GI bleed. - Hgb 5.9 --> 8.8 s/p 3 units pRBCs, remains stable at 8.7 today - GI consulted - appreciate recs - NPO for EGD scheduled for this afternoon - continue Protonix 40mg IV BID - blood transfusions to maintain Hgb >7 - repeat H/H this afternoon, CBC in the AM Elevated Troponin, resolving Troponin peaked at 0.186, no symptoms of chest pain, EKG without ST/T wave changes --> suspect demand ischemia in setting of acute blood loss anemia. 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 - requires outpatient MRI to further characterize the lesion and evaluate for malignancy Right Knee pain, s/p TKA 01/31 - oxycodone 5mg PO PRN / Morphine 2mg IV PRN / Tramadol 50mg PO for pain Protein Calorie Malnutrition - consulted sales negotiator - appreciate recs Hypertension/Hyperlipidemia/GERD/Depression/Hypothyroidism - continue all home medications FEN/GI: NPO pending EGD DVT Prophylaxis: holding pharmacologic ppx in setting of GI bleed Code Status: Full code Disposition: PCU with tele (2) Abnormal CT of the abdomen: (3) Status post total right knee replacement: (4) Elevated troponin: (5) Protein calorie malnutrition: (6) Hypertension: (7) Hypercholesterolemia: (8) Hypothyroidism: Admission and Anticipated Discharge Date Admission Date: February 05, 2021 Supervising Physician Co-Signing Physician Notes Resident Physician Supervision Note: I independently interviewed and examined the patient and verified the feldman history and physical, reviewed labs and image studies and agree with resident Dr. Contreras findings and care plan. Subjective Patient had 7 dark red/black stools overnight and into this morning. Patient reports worsening of epigastric burning since her right TKA on 01/31. She had regular BMs 1-2 times per day, without melena or hematochezia, but started to have copious loose dark-red/bloody/black stools yesterday. She also reports NBNB vomiting x3 yesterday. Patient was taking Oxycodone, Tylenol and several doses of Toradol PRN for pain control after her surgery, but she denies NSAID use before or after her surgery. Denies dizziness/lightheadedness, SOB, syncope, near-syncope previously or currently. She feels more energized this morning, after 3 units of pRBCs. Continues to report epigastric burning and nausea. Denies fever/chills, chest pain, palpitations, SOB, vomiting, rash. Review of Systems Review of Systems: All systems reviewed & are unremarkable except as noted in Subjective Physical Exam Physical Exam: General: A&Ox3. NAD. Cooperative. HEENT: Atraumatic, normocephalic. Moist mucus membranes. No conjunctival pallor. Pulm: CTAB A&P. -wheezes, -rales, -rhonchi. Symmetrical chest rise. No increase work of breathing. No respiratory distress. Cardiac: RRR, -mrg. Radial pulses intact and symmetrical. No LE edema. Abdominal: soft, non-tender, non-distended, NA BS x 4 Skin: warm, dry, no rash Results & Data Results & Data ([facility]) Vital Signs (Past 12 Hours) Vital Signs Temp Pulse Pulse Resp BP BP Pulse Ox 02/06/21 08:02 36.6 C 71 20 120/63 98 02/06/21 07:11 83 02/06/21 03:47 36.8 C 87 16 107/71 97 02/06/21 02:51 36.6 C 79 16 124/83 95 02/06/21 02:21 37.1 C 89 18 115/76 97 02/06/21 02:06 37.1 C 94 H 18 117/73 94 02/06/21 01:37 37.2 C 98 H 18 122/75 94 02/06/21 01:30 37.3 C 104 H 20 122/75 98 Resident Activity Tracking Resident Involvement: Resident Care Provided Care Provided: Adult [facility]
--- NOTE | 2021-02-06 14:59 | Anesthesiology Consultation ---
Date of Service February 06, 2021 Assessment & Plan (1) Encounter for pre-operative examination: Chart Review Chart Review: Acceptable Risk for Surgery and Patient NOT seen in Pre Admission Testing Consults Requested none History Surgery Operation Date: 02/06/21 18:45 Proposed Procedures p Esophagogastroduodenoscopy Dr Guerra - Petey Cano Case, DO Height/Weight Height: 5 ft 1 in Weight: 80.4 kg Allergies Allergy/AdvReac Type Severity Reaction Status Date / Time NSAIDS (Non-Steroidal Allergy Severe RENAL Verified 02/05/21 15:05 Anti-Inflamma FAILURE adhesive Allergy Mild RASH Verified 02/05/21 15:05 latex Allergy Mild RASH Verified 02/05/21 15:05 procaine Allergy Mild prolonged Verified 02/05/21 15:05 effect amoxicillin AdvReac Intermediate Diarrhea Verified 02/05/21 15:05 Medications Home Medications Medication Instructions Recorded Confirmed Last Taken lactase [Lactaid Fast Act] See Rx Instructions PO .COMPLEX PRN 03/23/19 02/05/21 Unknown omega-3 fatty acids 500 mg capsule 1,000 mg PO QDL cap 05/05/19 02/05/21 02/04/21 calcium carbonate 500 mg (1,250 1 tab PO QDL tab 12/18/19 02/05/21 02/04/21 mg)-vitamin D3 200 unit tablet (Os-Glenn 500 + D3) cyanocobalamin (vitamin B-12) 500 1,000 mcg PO QDL tab 12/18/19 02/05/21 02/04/21 mcg tablet melatonin 5 mg capsule 5 mg PO HS PRN cap 12/18/19 02/05/21 Unknown cetirizine 10 mg tablet (Zyrtec) 5 mg PO DAILY PRN 04/08/20 02/05/21 01/28/21 21:00 famotidine 20 mg tablet 20 mg PO DAILY PRN 12/20/20 02/05/21 Unknown hesdkotpril-kvk-emjahgikf-hrb 1 tab PO QDL tab 12/20/20 02/05/21 02/04/21 149-hyalur 500 mg-500 mg-66.7 mg tablet (Ncdmkxufpak-Iixguvmpklj-QKZ (with antiox)) multivit with 1 tab PO QDL 12/20/20 02/05/21 02/04/21 orfkmlmg-ckfv-RS-lutein 8 mg iron-400 mcg-300 mcg tablet (Centrum Silver Women) vitamins A,C,S-inwp-avrxug 14,320 1 cap PO BID 12/20/20 02/05/21 02/05/21 08:00 unit-226 mg-200 unit capsule (PreserVision AREDS) exemestane 25 mg tablet (Aromasin) 25 mg PO QDL 01/11/21 02/05/21 02/04/21 fluoxetine 20 mg capsule 20 mg PO QAM 01/11/21 02/05/21 02/05/21 fluticasone propionate 50 2 sprays INTNAS QAM 01/11/21 02/05/21 02/05/21 mcg/actuation nasal spray,suspension levothyroxine 50 mcg tablet 50 mcg PO DAILYBB 01/11/21 02/05/21 02/05/21 losartan 50 mg tablet 50 mg PO QAM 01/11/21 02/05/21 02/05/21 acetaminophen 500 mg tablet 1,000 mg PO Q8 30 Days #180 tab 01/31/21 02/05/21 02/05/21 06:00 (Tylenol Extra Strength) aspirin 81 mg tablet,delayed 81 mg PO BID 45 Days #90 tab 01/31/21 02/05/21 02/05/21 08:00 release tramadol 50 mg tablet 50 mg PO Q4H PRN #40 tab 01/31/21 02/05/21 02/04/21 acetaminophen 325 mg tablet 650 mg PO Q4H PRN MDD 3 /02/05/21 02/05/21 Unknown (Tylenol) HOURS lactobacillus combination no.4 3 3,000 mmu cells PO DAILY 02/05/21 02/05/21 02/05/21 billion cell capsule (Probiotic) oxycodone 5 mg tablet 5 mg PO Q4H PRN 02/05/21 02/05/21 02/05/21 06:10 simvastatin 20 mg tablet 20 mg PO HS 02/05/21 02/05/21 02/04/21 Active Medications Generic Name Dose Route Start Last Admin Trade Name Freq PRN Reason Stop Dose Admin Acetaminophen 500 mg 02/05/21 22:00 02/06/21 13:25 Acetaminophen 500 Mg Tab PO 03/07/21 21:59 Not Given Q8 JORGE Cyanocobalamin 1,000 mcg 02/06/21 11:30 02/06/21 11:26 Cyanocobalamin 500 Mcg Tablet (Vitamin B-12) PO 03/08/21 11:29 Not Given QDL JORGE Fluoxetine HCl 20 mg 02/06/21 09:00 02/06/21 10:02 Fluoxetine Hcl 20 Mg Cap PO 03/08/21 08:59 Not Given QAM JORGE Pantoprazole Sodium 40 mg/ 10 mls @ 5 mls/min 02/05/21 21:30 02/06/21 07:54 Syringe IV 03/07/21 21:29 5 mls/min BID JORGE Administration Levothyroxine Sodium 50 mcg 02/06/21 06:30 02/06/21 04:50 Levothyroxine Sodium 50 Mcg Tablet PO 03/08/21 06:29 Not Given DAILYBB JORGE Miscellaneous 1 ea 02/06/21 00:00 02/06/21 13:27 Exemestane [Aromasin] Order Awaiting Action N/A 03/08/21 00:00 Not Given QS JORGE Morphine Sulfate 2 mg 02/05/21 21:25 02/06/21 06:26 Morphine Sulfate 2 Mg/Ml Carp IV 02/19/21 21:24 2 mg Q30M PRN Administration Chest Pain Multivitamins/Minerals 1 tab 02/06/21 11:30 02/06/21 11:26 Cerovite Adv Formula Tab PO 03/08/21 11:29 Not Given QDL JORGE Ondansetron HCl 4 mg 02/05/21 21:25 02/06/21 01:34 Ondansetron Inj 2 Mg/Ml 2 Ml Vial IV 03/07/21 21:24 4 mg Q8 PRN Administration Nausea Simvastatin 20 mg 02/05/21 21:25 02/05/21 22:17 Simvastatin 20 Mg Tab PO 03/07/21 21:24 Not Given HS JORGE Past Medical History Medical History (Updated 02/06/21 @ 15:00 by Dav Carvajal MD) Cardiac murmur New onset Last stress ECHO 2018- showed no significant heart valve abnormalities GERD (gastroesophageal reflux disease) Well controlled and stable GI bleeding History of breast cancer Dx 2017; h/o lumpectomy + radiation No current issues Hypercholesterolemia Hypertension Hypothyroidism Laceration of right lower leg S/p laceration to right distal LE- 15 stitches (since removed) Dr. Rodriguez aware LVH (left ventricular hypertrophy) follows with Dr. Koch Osteoarthritis Overactive bladder Troponin I above reference range Past Family History Family History Unknown Aortic aneurysm Past Surgical History Surgical History History of breast biopsy History of cholecystectomy History of colonoscopy History of left knee replacement History of lumpectomy of left breast History of right knee surgery History of tonsillectomy and adenoidectomy Past Anesthesia History No Hx of Anesthesia Complications and No Family Hx of Anesthesia Complications History of PONV No Hx of PONV and No Hx of Motion Sickness Social History Smoking Status: Never smoker Do You Dip or Chew Tobacco: No Hx Alcohol Use: Yes Alcohol type: wine alcohol intake frequency: holidays/special occasions only Hx Substance Use: No substance use type: does not use Physical Exam Vital Signs Last Vital Signs Temp 36.6 C 02/06/21 08:02 Pulse 71 02/06/21 08:02 Resp 20 02/06/21 08:02 BP 120/63 02/06/21 08:02 Pulse Ox 98 02/06/21 08:02 Testing Laboratory Results 02/06/21 11:09 02/06/21 05:59 Urine Color Yellow 02/06/21 05:55 Urine Appearance Cloudy (Clear) A 02/06/21 05:55 Urine pH 5.5 (4.5-7.5) 02/06/21 05:55 Ur Specific [place] > 1.045 (1.000-1.030) H 02/06/21 05:55 Urine Protein 1+ (Negative) H 02/06/21 05:55 Urine Glucose (UA) Negative (Negative) 02/06/21 05:55 Urine Ketones Trace (Negative) H 02/06/21 05:55 Urine Nitrite Negative (Negative) 02/06/21 05:55 Ur Leukocyte Esterase 1+ (Negative) H 02/06/21 05:55 Urine WBC (Auto) >30 /hpf (0-5) H 02/06/21 05:55 Urine RBC (Auto) 0-4 /hpf (0-4) 02/06/21 05:55 U Hyaline Cast (Auto) 5-10 /lpf (0-5) H 02/06/21 05:55 U Epithel Cells (Auto) 20-30 /lpf (0-5) H 02/06/21 05:55 Urine Bacteria (Auto) Negative (Negative) 02/06/21 05:55 Blood Type O Positive 02/05/21 17:45 Antibody Screen NEGATIVE 02/05/21 17:45 Electrocardiogram Date: 02/05/21 DICTATED BY: Zacarias Carlton MD Test Reason : Blood Pressure : / mmHG Vent. Rate : 082 BPM Atrial Rate : 082 BPM P-R Int : 122 ms QRS Dur : 080 ms QT Int : 394 ms P-R-T Axes : 040 005 171 degrees QTc Int : 460 ms Sinus rhythm with Premature atrial complexes Abnormal ECG When compared with ECG of 05-FEB-2021 15:07, Premature atrial complexes are now Present T-wave inversion in Anterior leads now present Confirmed by Zacarias Carlton ([id number]) on 02/06/2021 9:26:40 AM
[2021-02-06] MEDS ORDERED: PROPOFOL IV EMULSION 10 MG/ML 20 ML VIAL IV ONE (15:50)
[2021-02-06] MEDS ORDERED: LIDOCAINE 2% 2 ML VIAL/AMP(20MG/ML) INFIL ONE (15:50)
--- NOTE | 2021-02-06 16:03 | GI REPORT ---
Patient Name: Kari Nelson Procedure Date: 02/06/2021 2:57 PM Date of : 1940 Admit Type: Inpatient Age: 80 Gender: Female Attending MD: Petey Guerra DO Procedure: Upper GI endoscopy Providers: Petey Guerra DO Referring MD: Autumn Jimenez Indications: Suspected upper gastrointestinal bleeding, Abnormal CT of the GI tract Medicines: Monitored Anesthesia Care Complications: No immediate complications. Estimated Blood Loss: Estimated blood loss: none. Procedure: Pre-Anesthesia Assessment: - Prior to the procedure, a History and Physical was performed, and patient medications and allergies were reviewed. The patient's tolerance of previous anesthesia was also reviewed. The risks and benefits of the procedure and the sedation options and risks were discussed with the patient. All questions were answered, and informed consent was obtained. Prior Anticoagulants: The patient has taken no previous anticoagulant or antiplatelet agents except for aspirin. ASA Grade Assessment: III - A patient with severe systemic disease. After reviewing the risks and benefits, the patient was deemed in satisfactory condition to undergo the procedure. After obtaining informed consent, the endoscope was passed under direct vision. Throughout the procedure, the patient's blood pressure, pulse, and oxygen saturations were monitored continuously. The Scope was introduced through the mouth, and advanced to the second part of duodenum. The upper GI endoscopy was accomplished without difficulty. The patient tolerated the procedure well. Findings: A non-obstructing Schatzki ring was found in the distal esophagus. A small hiatal hernia was present. Two oozing cratered duodenal ulcers with a visible vessel were found in the duodenal bulb. The largest lesion was 15 mm in largest dimension. Area was successfully injected with 4 mL of a 1:10,000 solution of epinephrine for hemostasis. Fulguration to ablate the remaining base of the lesion by bipolar probe was successful. Impression: - Non-obstructing Schatzki ring. - Small hiatal hernia. - Oozing duodenal ulcers with a visible vessel. Injected. Treated with bipolar cautery. - No specimens collected. Recommendation: - Return patient to [facility] for [facility] care. - Give Protonix (pantoprazole): initiate therapy with 80 mg IV bolus, then 8 mg/hr IV by continuous infusion for 3 days. - NPO. Petey Guerra DO 02/06/2021 4:02:28 PM This report has been signed electronically. Note Initiated On: 02/06/2021 2:57 PM Number of Addenda: 0 I attest to the content of the Intraoperative Record and orders documented therein, exceptions below {[id number]}
[2021-02-06] MEDS ORDERED: ONDANSETRON INJ 2 MG/ML 2 ML VIAL IV ONE (16:08)
--- NOTE | 2021-02-06 16:15 | Anesthesiology Progress Note ---
Date of Service February 06, 2021 Anesthesia Post Procedure Vital Signs Vital Signs: Temp Pulse Pulse Resp BP BP Pulse Ox 02/06/21 16:09 88 02/06/21 11:20 36.8 C 82 18 94/55 L 98 02/06/21 08:02 36.6 C 71 20 120/63 98 02/06/21 07:11 83 02/06/21 03:47 36.8 C 87 16 107/71 97 02/06/21 02:51 36.6 C 79 16 124/83 95 02/06/21 02:21 37.1 C 89 18 115/76 97 02/06/21 02:06 37.1 C 94 H 18 117/73 94 02/06/21 01:37 37.2 C 98 H 18 122/75 94 02/06/21 01:30 37.3 C 104 H 20 122/75 98 02/06/21 00:59 36.8 C 112 H 20 101/56 L 100 02/06/21 00:07 102 H 02/05/21 23:59 36.8 C 98 H 18 99/54 L 92 02/05/21 23:29 36.5 C 87 18 105/64 92 02/05/21 23:14 37.3 C 97 H 20 109/66 94 02/05/21 22:52 37 C 102 H 20 91/61 L 95 02/05/21 22:25 37.4 C 87 18 119/72 96 02/05/21 21:42 37.6 C H 96 H 18 133/55 L 95 02/05/21 21:26 37.6 C H 90 18 122/80 97 02/05/21 20:42 37.4 C 91 H 22 148/68 H 93 02/05/21 20:12 36.5 C 100 H 19 128/65 95 02/05/21 20:00 97 H 23 150/53 H 94 02/05/21 19:57 36.9 C 93 H 20 147/65 H 93 02/05/21 19:40 37.4 C 99 H 20 147/81 H 96 02/05/21 19:33 99 H 17 02/05/21 19:01 136/67 02/05/21 18:00 88 16 124/74 97 02/05/21 17:30 80 17 154/59 H 97 02/05/21 17:00 88 18 150/64 H 100 02/05/21 16:31 98 H 17 152/63 H 98 Pain Intensity Right Knee: Pain Intensity: 9 Transfer of Care Handoff Completed per policy Notes Mental Status: alert / awake / arousable Patient Amnestic to Procedure: Yes Nausea / Vomiting: adequately controlled Pain: adequately controlled Airway Patency, RR, SpO2: stable & adequate BP & HR: stable & adequate Hydration State: stable & adequate Anesthetic Complications: no major complications apparent and Pt Satisfied with anesthetic care
[2021-02-06] MEDS: PANTOprazole 40 MG in DEXTROSE 5% 100 ML IV SCH ×2 (17:01→21:11)
[2021-02-06 17:49] LABS: Hematocrit (blood only) 23.9 % (37-47); Hemoglobin 7.7 g/dL (12.0-16.0)
--- NOTE | 2021-02-06 18:38 | Consultation Report ---
ORTHOPEDIC CONSULTATION DATE OF SERVICE: 02/06/2021 SUBJECTIVE: An 80-year-old female, now 6 days out from a right total knee replacement. She was disc harged to [facility]. She did well initially, but has kind of gone downhill in the past several days . She has had a lot of nausea, emesis. She was admitted back to the hospital for blood loss and sig nificant anemia, thought to be due to a GI bleed. Her hemoglobin on admission was 5.9. She is feeli ng a little bit better now. She has got some blood. She just got back from her EGD, which showed so me bleeding ulcers in her GI tract. She has got some moderate knee pain. She was on a baby aspirin twice a day for DVT prophylaxis. OBJECTIVE: VITAL SIGNS: Currently are temperature 36.7. Vital signs stable. Pulse 90. Blood pressure 156/82. Physical examination of the right knee reveals the dressing to be clean, dry and intact. Leg is well aligned. Some moderate swelling. She can dorsiflex and plantarflex her foot appropriately. She is neurologically intact. No significant bleeding from the dressing. ASSESSMENT: An 80-year-old female, now 6 days out from a right total knee replacement with significa nt anemia, likely due to an upper gastrointestinal bleed. Her knee exam is pretty benign and normal apart from the postoperative course. Apparently, she did have quite a bit of bleeding initially from the incision site, but this looks to have all calmed down and her dressing is pretty dry and has bee n changed in the past day. Incision site also looks good with some slight bruising at the incision s ites. She is neurologically intact. PLAN: 1. DVT prophylaxis includes thigh-high TEDs and SCDs. I will leave any anticoagulation up to the mi dicine service with this GI bleed issue. 2. PT/OT. She can weight bear as tolerated. Right total knee protocol. 3. Pain control: We are going to have to hold all NSAIDs due to her GI issues. I would recommend tra madol for pain control. 4. Medical management as per the medicine service. 5. Disposition: She will likely need discharge back to [facility] once medically stable and recover ed from this. Any orthopedic questions can be directed to me at [phone]. I will continue to follow her in the hospital while she is here. Job ID: [id number]
[2021-02-06] MEDS: SIMVASTATIN 20 MG TAB PO SCH (21:18)
[2021-02-06] MEDS: oxyCODONE HCL IR 5 MG TAB (IMMEDIATE RELEASE) PO PRN (22:00)
[2021-02-07 01:09] LABS: Hematocrit (blood only) 23.9 % (37-47); Hemoglobin 7.8 g/dL (12.0-16.0)
[2021-02-07] MEDS: PANTOprazole 40 MG in DEXTROSE 5% 100 ML IV SCH ×5 (01:59→22:07)
[2021-02-07] MEDS ORDERED: SODIUM CHLORIDE 0.9% 250 ML IV PRN (05:58)
[2021-02-07] MEDS: LEVOTHYROXINE SODIUM 50 MCG TABLET PO SCH (06:28)
[2021-02-07] MEDS: ACETAMINOPHEN 500 MG TAB PO SCH ×3 (06:28→20:48)
[2021-02-07 06:31] LABS: Hematocrit (blood only) 26.2 % (37-47); Hemoglobin 8.5 g/dL (12.0-16.0); Mean Corpuscular Hemoglobin 27.9 pg (25-34); Mean Corpuscular Hgb Conc 32.4 g/dL (32-36); Mean Corpuscular Volume 85.9 fL (80-100); Platelet Count 255 K/uL (130-400); RDW Coefficient of Variation 16.2 % (11.5-14.5); RDW Standard Deviation 50.2 fL (36.4-46.3); Red Blood Count 3.05 M/uL (4.2-5.4); White Blood Count 10.78 K/uL (4.8-10.8)
[2021-02-07 06:57] LABS: Basophils # (auto) 0.02 K/uL (0-0.2); Basophils % (auto) 0.2 %; Eosinophils # (auto) 0.83 K/uL (0-0.5); Eosinophils % (auto) 7.7 %; Immature Granulocytes # (auto) 0.57 K/uL (0.00-0.02); Immature Granulocytes % (auto) 5.3 %; Lymphocytes # (auto) 1.64 K/uL (1.2-3.4); Lymphocytes % (auto) 15.2 %; Monocytes % (auto) 8.3 %; Neutrophils # (auto) 6.82 K/uL (1.4-6.5); Neutrophils % (auto) 63.3 %; Polychromasia 1+
[2021-02-07 07:02] LABS: BUN Creatinine Ratio 40.9 (10-20); Creatinine Clr Calc Pharmacy 44.7 ml/min; Est GFR (African American) 67.2 ml/min; Magnesium 2.2 mg/dl (1.8-2.4); Potassium 4.4 mmol/L (3.5-5.1)
[2021-02-07 07:03] LABS: Phosphorus 2.3 mg/dl (2.5-4.9)
[2021-02-07] MEDS: FLUoxetine HCL 20 MG CAP PO SCH (08:04)
[2021-02-07] MEDS: oxyCODONE HCL IR 5 MG TAB (IMMEDIATE RELEASE) PO PRN ×2 (08:07→17:35)
--- NOTE | 2021-02-07 09:39 | Progress Notes ---
DATE OF SERVICE: 02/07/2021 SUBJECTIVE: An 80-year-old female now 1 week out from a right total knee replacement, readmitted for anemia and a GI bleed. She is doing a little bit better this morning. Still some nausea. Denies a ny chest pain or shortness of breath. Knee is still pretty sore. OBJECTIVE: VITAL SIGNS: Temperature 37.1. Vital signs are stable. PHYSICAL EXAMINATION: GENERAL: Shows a pleasant, elderly female. Lying in bed, looks pretty comfortable. EXTREMITIES: Examination of the right leg reveals the leg to be well aligned. Dressings intact. No significant drainage. I did take her dressing down and there is no significant drainage on the dres sing. She does have quite a bit of bruising around the incision site. Very thin, fragile skin. She is neurologically intact. LABORATORY DATA: Hemoglobin 8.5. Hematocrit 26.2. Electrolytes are stable. ASSESSMENT: An 80-year-old female now 1 week out from right knee replacement. Orthopedically, doing okay. Having a moderate amount of pain. I do think she had a gastrointestinal bleed, likely as a s ource of her anemia. Hemoglobin and hematocrit seem to be stable. EGD went well yesterday with caut erization of some ulcers. PLAN: 1. DVT prophylaxis includes thigh-high TEDs, SCDs. We will leave any anticoagulation up to the GI a nd medicine service as this is likely contraindicated with this GI issue. 2. PT/OT. She can weight bear as tolerated. We are going to start therapy at least today, mobilize her and work on knee motion. 3. Pain control, seems to be doing okay with current pain regimen. 4. Disposition: She is orthopedically okay for discharge any time medically stable. Obviously, she has got some medical issues that needed to be straightened out first. Any orthopedic questions can be directed to me at [phone]. Job ID: [id number]
--- NOTE | 2021-02-07 09:50 | Gastroenterology Progress Note ---
Date of Service February 07, 2021 Assessment & Plan (1) Duodenal ulcer: Plan: -Continue IV Protonix drip for a total of 72 hours prior to transitioning to BID po therapy. -Okay to advance to liquids today. -Continue to monitor H/H. -Supportive care per primary team. Admission and Anticipated Discharge Date Admission Date: February 05, 2021 Supervising Physician Co-Signing Physician Notes Agree with YANG Gonsalez as above Abd: Soft, NT, ND, +BS Doing much better today, denies abd pain, nausea, vomiting, hematemesis, or melena Advance diet as tolerated Continue Pantoprazole gtt for 72 hours, then PO BID thereafter. Subjective Patient is an 80 yo female with 2 duodenal ulcers who underwent an EGD with treatment on 02/06/21. She reports a bowel movement this morning with a small amount of dark stool, but otherwise has not had further bleeding since her EGD. H/H has improved to 8.5/26.2. She denies abdominal pain. She notes she is thirsty. Review of Systems Gastrointestinal: + melena (small amount this AM); no abdominal pain, no nausea, no vomiting and no coffee ground emesis Physical Exam Constitutional: well developed and well nourished Respiratory: normal respiratory effort Cardiovascular: Rate/Rhythm: regular rate Gastrointestinal (Abdomen): Inspection/Auscultation: abdomen normal to inspection Musculoskeletal: Head/Neck/Chest: normocephalic Results & Data Results & Data ([facility]) Vital Signs (Past 12 Hours) Vital Signs Temp Pulse Pulse Resp BP BP Pulse Ox 02/07/21 08:26 36.7 C 74 18 130/76 02/07/21 07:26 36.6 C 76 20 128/76 93 02/07/21 07:24 37.1 C 75 17 147/75 H 02/07/21 06:56 36.6 C 71 18 131/72 91 02/07/21 06:41 36.6 C 76 18 148/79 H 91 02/07/21 06:24 36.9 C 81 18 147/79 H 92 02/07/21 03:36 37.3 C 84 18 154/68 H 95 02/06/21 23:57 93 H 02/06/21 23:36 37 C 82 16 127/70 93 02/06/21 21:52 37.2 C 80 18 142/78 H 94 PG Care Time/CCT Total # of Minutes Spent Total Time Spent with Patient: Total time spent is greater than 50% in coordination of care (as documented) at patient's floor/unit and/or counseling patient: Coding Level of Care Code 07490 Subseq Hosp Care Lvl 3 Diagnoses Duodenal ulcer K26.9
--- NOTE | 2021-02-07 11:42 | Hospitalist Progress Note ---
Date of Service February 07, 2021 Assessment & Plan (1) Acute blood loss anemia: Plan: Kari Nelson is an 80 yo female with PMHx significant for recent right TKA on 01/31, HTN and hypothyroidism who was admitted to [facility] on 02/05 for acute blood loss anemia likely due to upper GIB. Acute Blood Loss Anemia 2/2 Upper GI bleed Acute-onset melena/hematochezia and worsening fatigue in context of increased NSAID use, Hgb 5.9 on admission --> suspect acute upper GI bleed. - GI consulted - appreciate recs - EGD 02/06 showed several bleeding duodenal ulcers, s/p hemostasis of ulcers - continue Protonix 4mg/hr gtt x72 hours (until 02/09 in the afternoon) - advance to clear liquid diet today - blood transfusions to maintain Hgb >8, given active bleed as well as Type II [place] - repeat H/H this afternoon, CBC in the AM Elevated Troponin, resolving Troponin peaked at 0.186, no symptoms of chest pain, EKG without ST/T wave changes --> suspect Type II [place] in setting of acute blood loss anemia. 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 - requires outpatient MRI to further characterize the lesion and evaluate for malignancy Asymptomatic Bacteriuria Patient had UA and reflex urine culture - urine culture is positive for gram- negative bacilli. She had these tests ordered in the ED due to abdominal discomfort, but her discomfort was in the epigastric region in the setting of acute upper GI bleed. She had no dysuria or other urinary symptoms prior to hospitalization. - no treatment indicated at this time Right Knee pain, s/p TKA 01/31 - Ortho consulted - appreciate recs - oxycodone 5mg PO PRN / Morphine 2mg IV PRN / Tramadol 50mg PO for pain - PT consulted - patient will likely need acute rehab after this hospitalization Protein Calorie Malnutrition - consulted package handler - appreciate recs Hypertension/Hyperlipidemia/GERD/Depression/Hypothyroidism - continue all home medications FEN/GI: clear liquids DVT Prophylaxis: holding pharmacologic ppx in setting of GI bleed Code Status: Full code Disposition: PCU with tele (2) Abnormal CT of the abdomen: (3) Status post total right knee replacement: (4) Elevated troponin: (5) Protein calorie malnutrition: (6) Hypertension: (7) Hypercholesterolemia: (8) Hypothyroidism: Admission and Anticipated Discharge Date Admission Date: February 05, 2021 Supervising Physician Co-Signing Physician Notes Resident Physician Supervision Note: I independently interviewed and examined the patient and verified the feldman history and physical, reviewed labs and image studies and agree with resident Dr. Contreras findings and care plan. Subjective Patient received 1unit pRBCs early this morning for persistent Hgb <8. She denies syncope/near-syncope, dizziness/lightheadedness, nausea/vomiting, or abdominal pain this morning. She reports that her previous epigastric discomfort is resolved. Review of Systems Review of Systems: All systems reviewed & are unremarkable except as noted in Subjective Physical Exam Physical Exam: General: A&Ox3. NAD. Cooperative. HEENT: Atraumatic, normocephalic. Moist mucus membranes. No conjunctival pallor. Pulm: CTAB A&P. -wheezes, -rales, -rhonchi. Symmetrical chest rise. No increase work of breathing. No respiratory distress. Cardiac: RRR, -mrg. Radial pulses intact and symmetrical. No LE edema. Abdominal: soft, non-tender, non-distended, NA BS x 4 Skin: warm, dry, no rash Results & Data Results & Data ([facility]) Vital Signs (Past 12 Hours) Vital Signs Temp Pulse Pulse Resp BP BP Pulse Ox 02/07/21 10:41 36.8 C 72 18 132/72 96 02/07/21 08:26 36.7 C 74 18 130/76 02/07/21 07:26 36.6 C 76 20 128/76 93 02/07/21 07:24 37.1 C 75 17 147/75 H 02/07/21 06:56 36.6 C 71 18 131/72 91 02/07/21 06:41 36.6 C 76 18 148/79 H 91 02/07/21 06:24 36.9 C 81 18 147/79 H 92 02/07/21 03:36 37.3 C 84 18 154/68 H 95 02/06/21 23:57 93 H 02/06/21 23:36 37 C 82 16 127/70 93 Resident Activity Tracking Resident Involvement: Resident Care Provided Care Provided: Adult [facility] Medicine
[2021-02-07] MEDS: CEROVITE ADV FORMULA TAB PO SCH (11:51)
[2021-02-07] MEDS: CYANOCOBALAMIN 500 MCG TABLET (VITAMIN B-12) PO SCH (11:51)
--- NOTE | 2021-02-07 13:25 | Cardiology Progress Note ---
Date of Service February 07, 2021 Assessment & Plan (1) Anemia: Plan: -upper endoscopy revealed 2 duodenal ulcers. -treated with cautery and epinephrine by Dr. Guerra. -currently on a Protonix drip. -aspirin currently on hold. (2) GI bleeding: Plan: -as above. (3) Troponin I above reference range: Plan: -likely from a supply demand mismatch. -no evidence of coronary ischemia. (4) LVH (left ventricular hypertrophy): Plan: -moderate in degree on echocardiogram, January 2019. (5) Hypertension: Plan: -adequate control currently. (6) Hypercholesterolemia: Plan: -resume simvastatin when able. Admission and Anticipated Discharge Date Admission Date: February 05, 2021 Subjective The patient is resting comfortably in bed without complaints of chest pain or dyspnea. Physical Exam Physical Exam: In general this is a well-developed well-nourished white female in no acute distress. HEENT exam is negative. Neck is supple with full carotid upstrokes. There are no carotid bruits. No JVD. There is no thyromegaly. Cardiovascular exam reveals a regular rhythm with a normal S1 and S2. No S3, S4, or murmurs are noted. Lungs are clear without rales, rhonchi, or wheezes. Abdomen is soft and nontender without bruits. Extremities reveal intact radial artery and posterior tibial pulses bilaterally. There is no peripheral edema. Results & Data ([facility]) Vital Signs (Past 12 Hours) Vital Signs Temp Pulse Pulse Resp BP BP Pulse Ox 02/07/21 11:37 36.8 C 73 17 162/70 H 97 02/07/21 10:41 36.8 C 72 18 132/72 96 02/07/21 08:26 36.7 C 74 18 130/76 02/07/21 07:26 36.6 C 76 20 128/76 93 02/07/21 07:24 37.1 C 75 17 147/75 H 02/07/21 06:56 36.6 C 71 18 131/72 91 02/07/21 06:41 36.6 C 76 18 148/79 H 91 02/07/21 06:24 36.9 C 81 18 147/79 H 92 02/07/21 03:36 37.3 C 84 18 154/68 H 95 Diagnostic Findings manager strategic alliances notes sinus rhythm with an occasional PAC. PG Care Time/CCT Total # of Minutes Spent Total Time Spent with Patient: Total time spent is greater than 50% in coordination of care (as documented) at patient's floor/unit and/or counseling patient: Coding Level of Care Code 45866 Subseq Hosp Care Lvl 3 Diagnoses Anemia D64.9 GI bleeding K92.2 Troponin I above reference range R77.8 LVH (left ventricular hypertrophy) I51.7 Hypertension I10 Hypercholesterolemia E78.00
[2021-02-07 16:00] LABS: Hematocrit (blood only) 27.2 % (37-47); Hemoglobin 8.8 g/dL (12.0-16.0)
[2021-02-07] MEDS: SIMVASTATIN 20 MG TAB PO SCH (20:48)
[2021-02-08] MEDS: PANTOprazole 40 MG in DEXTROSE 5% 100 ML IV SCH ×5 (03:07→22:57)
[2021-02-08] MEDS: oxyCODONE HCL IR 5 MG TAB (IMMEDIATE RELEASE) PO PRN ×4 (03:55→19:34)
[2021-02-08] MEDS: LEVOTHYROXINE SODIUM 50 MCG TABLET PO SCH (05:54)
[2021-02-08] MEDS: ACETAMINOPHEN 500 MG TAB PO SCH ×3 (05:54→22:56)
[2021-02-08 07:40] LABS: Basophils # (auto) 0.03 K/uL (0-0.2); Basophils % (auto) 0.4 %; Eosinophils % (auto) 8.2 %; Hematocrit (blood only) 29.5 % (37-47); Hemoglobin 9.5 g/dL (12.0-16.0); Immature Granulocytes # (auto) 0.37 K/uL (0.00-0.02); Immature Granulocytes % (auto) 4.3 %; Lymphocytes # (auto) 0.96 K/uL (1.2-3.4); Lymphocytes % (auto) 11.3 %; Mean Corpuscular Hgb Conc 32.2 g/dL (32-36); Mean Platelet Volume 9.1 fL (7.4-10.4); Monocytes # (auto) 0.61 K/uL (0.11-0.59); Monocytes % (auto) 7.2 %; Neutrophils # (auto) 5.84 K/uL (1.4-6.5); Neutrophils % (auto) 68.6 %; Nucleated RBC # (auto) 0.02 K/uL (0-0); Nucleated RBC % (auto) 0.2 %; Platelet Count 261 K/uL (130-400); RDW Coefficient of Variation 15.7 % (11.5-14.5); RDW Standard Deviation 49.4 fL (36.4-46.3); Red Blood Count 3.39 M/uL (4.2-5.4); White Blood Count 8.51 K/uL (4.8-10.8)
[2021-02-08] MEDS: FLUoxetine HCL 20 MG CAP PO SCH (08:01)
[2021-02-08 08:12] LABS: Calcium 8.2 mg/dl (8.5-10.1); Creatinine Clr Calc Pharmacy 54.9 ml/min; Est GFR (African American) 84.7 ml/min; Est GFR (Non-African American) 73.1 ml/min; Potassium 4.1 mmol/L (3.5-5.1)
--- NOTE | 2021-02-08 08:36 | Progress Notes ---
DATE OF SERVICE: 02/08/2021. SUBJECTIVE: An 80-year-old white female, now 8 days out from a right knee replacement complicated by a GI bleed. She is doing much better this morning. Nausea has improved. Feeling better. Still so me knee pain, but seems to be improving. She is anxious to get moving forward on her rehabilitation. OBJECTIVE: VITAL SIGNS: Temperature is 37.3. Vital signs are stable. GENERAL: Shows a pleasant, elderly female. She is sitting up in bed and just looks much better. EXTREMITIES: Examination of the right leg reveals the leg to be well aligned. Dressings clean, dry and intact. No significant drainage. Diffuse tenderness to palpation. NEUROLOGIC: She is neurologically intact. LABORATORY DATA: Hemoglobin 9.5, hematocrit 29.5. Electrolytes are pending. ASSESSMENT: An 80-year-old white female, now 8 days out from right knee replacement complicated by G I bleed. She is doing much better. Clinically, she is doing better. Hemoglobin appears stable. PLAN: 1. DVT prophylaxis include thigh-high TEDs and SCDs. We are going to have to avoid aspirin and anti coagulation likely due to her GI issues. 2. PT, OT, weightbear as tolerated. She really is anxious to get moving on her rehabilitation. 3. Pain control, doing okay with current pain regimen. 4. Disposition: She will likely be discharged back to the [facility]. She is orthopedically okay any t taran medically stable. I need to see her back in about 2 weeks from her surgery date, which is about a week from now. Any orthopedic questions can be directed to me at [phone]. Job ID: [id number]
--- NOTE | 2021-02-08 08:37 | Hospitalist Progress Note ---
Date of Service February 08, 2021 Assessment & Plan (1) Acute blood loss anemia: Plan: Kari Nelson is an 80 yo female with PMHx significant for recent right TKA on 01/31, HTN and hypothyroidism who was admitted to [facility] on 02/05 for acute blood loss anemia due to upper GIB. Acute Blood Loss Anemia 2/2 Upper GI bleed Acute-onset melena/hematochezia and worsening fatigue in context of increased NSAID use, Hgb 5.9 on admission, several bleeding duodenal ulcers on EGD --> acute upper GI bleed. - GI consulted - appreciate recs - EGD 02/06 showed several bleeding duodenal ulcers, s/p hemostasis of ulcers - continue Protonix 4mg/hr gtt x72 hours (until 02/09 in the afternoon) - advance to regular today - blood transfusions to maintain Hgb >8, given active bleed as well as Type II [place] - trend CBC daily Demand ischemia in setting of anemia and tachycardia due to GI bleed Troponin peaked at 0.186, no symptoms of chest pain, EKG without ST/T wave changes --> suspect Type II [place] in setting of acute blood loss anemia. 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 - requires outpatient MRI to further characterize the lesion and evaluate for malignancy Asymptomatic Bacteriuria Patient had UA and reflex urine culture - urine culture is positive for gram- negative bacilli. She had these tests ordered in the ED due to abdominal discomfort, but her discomfort was in the epigastric region in the setting of acute upper GI bleed. She had no dysuria or other urinary symptoms prior to hospitalization. - no treatment indicated at this time Right Knee pain, s/p TKA 01/31 - Ortho consulted - appreciate recs - oxycodone 5mg PO PRN / Morphine 2mg IV PRN / Tramadol 50mg PO for pain - PT consulted - recommends inpatient rehab - [facility] has bed ready for patient when medically stable Protein Calorie Malnutrition - consulted marketing producer - appreciate recs Hypertension/Hyperlipidemia/GERD/Depression/Hypothyroidism - continue all home medications FEN/GI: regular DVT Prophylaxis: holding pharmacologic ppx in setting of GI bleed Code Status: Full code Disposition: PCU with tele, d/c to [facility] when medically stable (2) Abnormal CT of the abdomen: (3) Status post total right knee replacement: (4) Elevated troponin: (5) Protein calorie malnutrition: (6) Hypertension: (7) Hypercholesterolemia: (8) Hypothyroidism: Admission and Anticipated Discharge Date Admission Date: February 05, 2021 Supervising Physician Co-Signing Physician Notes Resident Physician Supervision Note: I independently interviewed and examined the patient and verified the feldman history and physical, reviewed labs and image studies and agree with resident Dr. Contreras findings and care plan. Subjective No acute events overnight. No BMs overnight. Patient tolerating clear liquids well. Denies fever/chills, abdominal pain/burning, N/V. Doing well overall. Review of Systems Review of Systems: All systems reviewed & are unremarkable except as noted in Subjective Physical Exam Physical Exam: General: A&Ox3. NAD. Cooperative. HEENT: Atraumatic, normocephalic. Moist mucus membranes. No conjunctival pallor. Pulm: CTAB A&P. -wheezes, -rales, -rhonchi. Symmetrical chest rise. No increase work of breathing. No respiratory distress. Cardiac: RRR, -mrg. Radial pulses intact and symmetrical. No LE edema. Abdominal: soft, non-tender, non-distended, NA BS x 4 Skin: warm, dry, no rash Results & Data Results & Data ([facility]) Vital Signs (Past 12 Hours) Vital Signs Temp Pulse Pulse Resp BP Pulse Ox 02/08/21 07:26 37.3 C 64 17 141/60 H 96 02/08/21 02:59 36.8 C 102 H 19 168/77 H 91 02/07/21 23:25 73 02/07/21 22:55 37.1 C 70 17 144/86 H 96 Resident Activity Tracking Resident Involvement: Resident Care Provided Care Provided: Adult [facility] Medicine
--- NOTE | 2021-02-08 09:20 | Gastroenterology Progress Note ---
Date of Service February 08, 2021 Assessment & Plan (1) Duodenal ulcer: Plan: -Continue IV Protonix gtt x 72 hours prior to transitioning to Protonix 40 mg BID. -Continue to monitor H/H -Supportive care and discharge planning per primary team Admission and Anticipated Discharge Date Admission Date: February 05, 2021 Supervising Physician Co-Signing Physician Notes Agree with YANG Gonsalez as above Abd: Soft, NT, ND, +BS Feeling much better today Continue current therapy and supportive care Complete Protonix gtt for 72 hours, then Protonix 40 mg PO BID thereafter Followup in our office in 6 weeks as outpatient. Subjective Patient is an 80 yo female with duodenal ulcerations. Patient's H/H is presently 9.5/29.5. She reports a single episode of blood-tinged stool yesterday, but denies further issues. She is out of bed and feels notably improved. She continues on her PPI gtt at present. Review of Systems Respiratory: no dyspnea Gastrointestinal: + blood in stools (none further since 02/07); no abdominal pain Physical Exam Constitutional: well developed and well nourished Respiratory: normal respiratory effort Gastrointestinal (Abdomen): Inspection/Auscultation: abdomen normal to inspection Percussion/Palpation: abdomen soft; abdomen nontender Results & Data Results & Data ([facility]) Vital Signs (Past 12 Hours) Vital Signs Temp Pulse Pulse Resp BP Pulse Ox 02/08/21 07:26 37.3 C 64 17 141/60 H 96 02/08/21 02:59 36.8 C 102 H 19 168/77 H 91 02/07/21 23:25 73 02/07/21 22:55 37.1 C 70 17 144/86 H 96 PG Care Time/CCT Total # of Minutes Spent Total Time Spent with Patient: Total time spent is greater than 50% in coordination of care (as documented) at patient's floor/unit and/or counseling patient: Coding Level of Care Code 25746 Subseq Hosp Care Lvl 3 Diagnoses Duodenal ulcer K26.9
[2021-02-08] MEDS: CYANOCOBALAMIN 500 MCG TABLET (VITAMIN B-12) PO SCH (11:58)
[2021-02-08] MEDS: CEROVITE ADV FORMULA TAB PO SCH (11:58)
--- NOTE | 2021-02-08 16:49 | Cardiology Progress Note ---
Date of Service February 08, 2021 Assessment & Plan (1) GI bleeding: Plan: -upper endoscopy revealed 2 duodenal ulcers. -treated with cautery and epinephrine by Dr. Guerra. -currently on a Protonix drip. -aspirin currently on hold. (2) Troponin I above reference range: Plan: -likely secondary to a supply demand mismatch. -no evidence of coronary ischemia. (3) LVH (left ventricular hypertrophy): Plan: -moderate in degree on echocardiogram, January 2019. (4) Hypertension: Plan: -adequate control currently. (5) Hypercholesterolemia: Plan: -resume simvastatin when able. Admission and Anticipated Discharge Date Admission Date: February 05, 2021 Subjective The patient is resting comfortably at the bedside without complaints of chest pain or dyspnea. Physical Exam Physical Exam: In general this is a well-developed well-nourished white female in no acute distress. HEENT exam is negative. Neck is supple with full carotid upstrokes. There are no carotid bruits. No JVD. There is no thyromegaly. Cardiovascular exam reveals a regular rhythm with a normal S1 and S2. No S3, S4, or murmurs are noted. Lungs are clear without rales, rhonchi, or wheezes. Abdomen is soft and nontender without bruits. Extremities reveal intact radial artery and posterior tibial pulses bilaterally. There is no peripheral edema. Results & Data ([facility]) Vital Signs (Past 12 Hours) Vital Signs Temp Pulse Resp BP Pulse Ox 02/08/21 15:07 36.8 C 69 18 157/71 H 99 02/08/21 11:41 36.6 C 63 17 159/72 H 99 02/08/21 07:26 37.3 C 64 17 141/60 H 96 PG Care Time/CCT Total # of Minutes Spent Total Time Spent with Patient: Total time spent is greater than 50% in coordination of care (as documented) at patient's floor/unit and/or counseling patient: Coding Level of Care Code 40062 Subseq Hosp Care Lvl 3 Diagnoses GI bleeding K92.2 Troponin I above reference range R77.8 LVH (left ventricular hypertrophy) I51.7 Hypertension I10 Hypercholesterolemia E78.00
[2021-02-08] MEDS: SIMVASTATIN 20 MG TAB PO SCH (20:12)
[2021-02-09] MEDS: PANTOprazole 40 MG in DEXTROSE 5% 100 ML IV SCH ×3 (03:40→14:19)
[2021-02-09] MEDS: oxyCODONE HCL IR 5 MG TAB (IMMEDIATE RELEASE) PO PRN ×3 (03:45→12:13)
[2021-02-09] MEDS: LEVOTHYROXINE SODIUM 50 MCG TABLET PO SCH (06:03)
[2021-02-09] MEDS: ACETAMINOPHEN 500 MG TAB PO SCH ×3 (06:03→21:01)
[2021-02-09 07:43] LABS: Hematocrit (blood only) 28.6 % (37-47); Hemoglobin 9.2 g/dL (12.0-16.0); Mean Corpuscular Hemoglobin 27.7 pg (25-34); Mean Corpuscular Hgb Conc 32.2 g/dL (32-36); Mean Corpuscular Volume 86.1 fL (80-100); Mean Platelet Volume 9.3 fL (7.4-10.4); Platelet Count 256 K/uL (130-400); RDW Coefficient of Variation 15.6 % (11.5-14.5); RDW Standard Deviation 48.1 fL (36.4-46.3); Red Blood Count 3.32 M/uL (4.2-5.4); White Blood Count 7.78 K/uL (4.8-10.8)
[2021-02-09 08:06] LABS: Basophils # (auto) 0.03 K/uL (0-0.2); Basophils % (auto) 0.4 %; Eosinophils # (auto) 0.65 K/uL (0-0.5); Eosinophils % (auto) 8.4 %; Immature Granulocytes # (auto) 0.46 K/uL (0.00-0.02); Immature Granulocytes % (auto) 5.9 %; Lymphocytes # (auto) 0.97 K/uL (1.2-3.4); Lymphocytes % (auto) 12.5 %; Monocytes # (auto) 0.79 K/uL (0.11-0.59); Monocytes % (auto) 10.2 %; Neutrophils # (auto) 4.88 K/uL (1.4-6.5); Neutrophils % (auto) 62.6 %
[2021-02-09] MEDS: FLUoxetine HCL 20 MG CAP PO SCH (08:10)
[2021-02-09 08:12] LABS: BUN Creatinine Ratio 20.5 (10-20); Calcium 8.4 mg/dl (8.5-10.1); Creatinine Clr Calc Pharmacy 49.9 ml/min; Est GFR (African American) 77.2 ml/min; Est GFR (Non-African American) 66.6 ml/min; Potassium 4.1 mmol/L (3.5-5.1)
--- NOTE | 2021-02-09 08:53 | Progress Notes ---
DATE OF SERVICE: 02/09/2021. SUBJECTIVE: An 80-year-old female now 9 days out from a right knee replacement readmitted with GI bl eeding and anemia. She is doing much better. Nausea has improved. Just feels more energetic. Pain is also improving. OBJECTIVE: VITAL SIGNS: Temperature 36.7. Vital signs are stable.: PHYSICAL EXAMINATION: GENERAL: Shows a pleasant, elderly female. Sitting up on bed, looks pretty comfortable. Awake, sera rt and oriented. EXTREMITIES: Examination of the right leg reveals the leg to be well aligned. Dressing is clean, dr y and intact. She can do a straight leg raise. NEUROLOGIC: She is neurologically intact. LABORATORY DATA: Hemoglobin 9.2. Hematocrit 28.6. Electrolytes are pending. ASSESSMENT: An 80-year-old female postop day 9 from right knee replacement complicated by a GI bleed postoperatively. She is doing much better. She looks better as well. Pain is improving. PLAN: 1. DVT prophylaxis include thigh-high TEDs and SCDs. 2. PT/OT. She is weightbearing as tolerated. 3. Pain control, seems to be doing pretty well with current pain regimen. 4. Disposition: She is orthopedically okay for discharge any time medically stable. I need to see her back in about a week. Any orthopedic questions can be directed to me at [phone]. Job ID: [id number]
--- NOTE | 2021-02-09 10:05 | Discharge Summary ---
Date of Service February 09, 2021 Admission HPI Per Admitting Provider 80 y/o F Hx HTN, HLD, hypothyroidism, depression. Pt underwent a R TKE 01/31/21. She was DCd to rehab and reports nausea and vomiting since DC. She denies fevers. She has not had CP or SOB but does describe persistent weakness. Her wound has required frequent dressing changes due to occasional bleeding. Initial labs were notable for a hemoglobin of 5.9, protein malnutrition and a trop of 0.186. BUN is elevated however, electrolytes and renal function are otherwise WNL. XR of the abdomen did not show any acute abnormalities. An EKG demonstrated NSR with borderline ST changes inferior and laterally. A post-op Hb was 8.8 and > 11 pre-op. While in the ER, she had a melanotic BM. Vitals have remained stable. PMH: 1) HTN 2) HLD 3) Hypothyroidism 4) NSAID nephropathy - resolved 5) DJD 6) Depression 7) Breast CA Surgical: 1) L TKA 2018 2) R TKA 2020 3) Tubal ligation 4) Cholecystectomy Social: Does not drink or smoke Family: Noncontributory due to pt's age Admission Exam Per Admitting Provider General: AAO x 3, no distress ENT: No erythema or exudates, no thrush Eyes: ROSMERY, EOMI Head and neck: Normocephalic, atraumatic, No JVD, neck is supple. Chest/heart: Nontender, S1,2, RRR, no murmurs, no gallops Lungs: CTAB, no wheezing or crackles Abdomen: Nontender, nondistended, BS+ Neuro: AAO x 3, speech is clear, no unilateral weakness or loss of sensation, coordination intact Musculoskeletal: Did not mobilize R leg - no other joint inflammation Skin: Wound does not appear infected - there is some crusting of blood Extremities: Pulses +, minimal edema Principal Diagnosis Acute Blood Loss Anemia due to Upper GI Bleed Discharge Data Allergies Allergy/AdvReac Type Severity Reaction Status Date / Time NSAIDS (Non-Steroidal Allergy Severe RENAL Verified 02/05/21 15:05 Anti-Inflamma FAILURE adhesive Allergy Mild RASH Verified 02/05/21 15:05 latex Allergy Mild RASH Verified 02/05/21 15:05 procaine Allergy Mild prolonged Verified 02/05/21 15:05 effect amoxicillin AdvReac Intermediate Diarrhea Verified 02/05/21 15:05 Consultations 02/05/21 18:50 Consult Gastroenterology Routine 02/05/21 21:25 Consult Cardiology Routine 02/06/21 09:25 Consult Orthopedic Surgery Routine Procedures Performed Operation Date: 02/06/21 18:45 Actual Procedures p EGD Hemostasis - Petey Cano Case, DO Ordered Studies 02/05/21 17:55 CT abd pelvis IV con only Stat Hospital Course (1) Acute blood loss anemia: Kari Nelson is an 80 yo female with PMHx significant for recent right TK A on 01/31, HTN and hypothyroidism who was admitted to [facility] on 02/05 for acute blood loss anemia due to upper GIB. Acute Blood Loss Anemia 2/2 Upper GI bleed Acute-onset melena/hematochezia and worsening fatigue in context of increased NSAID use, Hgb 5.9 on admission, several bleeding duodenal ulcers on EGD --> acute upper GI bleed. - GI consulted - appreciate recs - EGD 02/06 showed several bleeding duodenal ulcers, s/p hemostasis of ulcers - continue Protonix 4mg/hr gtt x72 hours (until 02/09 in the afternoon) - advance to regular today - blood transfusions to maintain Hgb >8, given active bleed as well as Type II PA - trend CBC daily Demand ischemia in setting of anemia and tachycardia due to GI bleed Troponin peaked at 0.186, no symptoms of chest pain, EKG without ST/T wave changes --> suspect Type II PA in setting of acute blood loss anemia. 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 - requires outpatient MRI to further characterize the lesion and evaluate for malignancy Asymptomatic Bacteriuria Patient had UA and reflex urine culture - urine culture is positive for gram- negative bacilli. She had these tests ordered in the ED due to abdominal discomfort, but her discomfort was in the epigastric region in the setting of acute upper GI bleed. She had no dysuria or other urinary symptoms prior to hospitalization. - no treatment indicated at this time Right Knee pain, s/p TKA 01/31 - Ortho consulted - appreciate recs - oxycodone 5mg PO PRN / Morphine 2mg IV PRN / Tramadol 50mg PO for pain - PT consulted - recommends inpatient rehab - [facility] has bed ready for patient when medically stable Protein Calorie Malnutrition - consulted cyber systems administrator - appreciate recs Hypertension/Hyperlipidemia/GERD/Depression/Hypothyroidism - continue all home medications FEN/GI: regular DVT Prophylaxis: holding pharmacologic ppx in setting of GI bleed Code Status: Full code Disposition: PCU with tele, d/c to [facility] when medically stable (2) Abnormal CT of the abdomen: (3) Status post total right knee replacement: (4) Elevated troponin: (5) Protein calorie malnutrition: (6) Hypertension: (7) Hypercholesterolemia: (8) Hypothyroidism: Discharge Plan Discharge Items Reason For Visit: ANEMAI, N/V, TROP ELEVATION Follow-up/Referrals: Aiden Gilbert MD [Primary Care Provider] - Medications and DC Order Prescriptions: No Action [id number] [[id number] (with antiox)] 500-500-66.7 mg tablet 1 tab PO QDL RF: 0 Centrum Silver Women 8 mg iron-400 mcg-300 mcg tablet 1 tab PO QDL RF: 0 PreserVision AREDS 14,320-226-200 [id number] capsule 1 cap PO BID RF: 0 melatonin 5 mg capsule 5 mg PO HS PRN (Reason: Sleep) RF: 0 lactase See Rx Instructions PO .COMPLEX PRN (Reason: DAIRY PRODUCTS) RF: 0 omega-3 fatty acids 500 mg capsule 1,000 mg PO QDL RF: 0 cyanocobalamin (vitamin B-12) 500 mcg tablet 1,000 mcg PO QDL RF: 0 famotidine 20 mg tablet 20 mg PO DAILY PRN (Reason: gerd) RF: 0 cetirizine [Zyrtec] 10 mg tablet 5 mg PO DAILY PRN (Reason: Allergy Symptoms) RF: 0 calcium carbonate-vitamin D3 [Os-Glenn 500 + D3] 500 mg(1,250mg) -200 unit tablet 1 tab PO QDL RF: 0 losartan 50 mg tablet 50 mg PO QAM RF: 0 exemestane [Aromasin] 25 mg tablet 25 mg PO QDL RF: 0 levothyroxine 50 mcg tablet 50 mcg PO DAILYBB RF: 0 fluoxetine 20 mg capsule 20 mg PO QAM RF: 0 fluticasone propionate 50 mcg/actuation spray,suspension 2 sprays INTNAS QAM RF: 0 acetaminophen [Tylenol Extra Strength] 500 mg Tablet 1,000 mg PO Q8 30 Days Qty: 180 RF: 0 aspirin 81 mg Tablet,Delayed Release (Dr/Ec) 81 mg PO BID 45 Days Qty: 90 RF: 0 tramadol 50 mg Tablet 50 mg PO Q4H PRN (Reason: pain) Qty: 40 RF: 0 acetaminophen [Tylenol] 325 mg Tablet 650 mg PO Q4H MDD 3 GRAMS/24 HOURS PRN (Reason: Pain (Scale Score 1-3)) RF: 0 oxycodone 5 mg Tablet 5 mg PO Q4H PRN (Reason: Pain (Scale Score 7-10)) RF: 0 Probiotic 3 billion cell Capsule 3,000 mmu cells PO DAILY RF: 0 simvastatin 20 mg tablet 20 mg PO HS RF: 0 Admission Data Admit Date/Time: 02/05/21 18:25 Attending Provider: Autumn Jimenez Admit Provider: Ernesto Acevedo Primary Care Provider: Aiden Gilbert Other Providers: Petey Guerra ; Noman Ramirez ; Isiah Rodriguez Other Interventions: Discharge Summary Assessment (RN) Last Done: 02/06/21 16:27
[2021-02-09] MEDS: CYANOCOBALAMIN 500 MCG TABLET (VITAMIN B-12) PO SCH (12:04)
[2021-02-09] MEDS: CEROVITE ADV FORMULA TAB PO SCH (12:04)
--- NOTE | 2021-02-09 12:30 | Cardiology Progress Note ---
Date of Service February 09, 2021 Assessment & Plan (1) GI bleeding: Plan: -EGD revealed 2 duodenal ulcers. -treated with cautery and epinephrine. -currently on a Protonix drip. -aspirin currently on hold. (2) Troponin I above reference range: Plan: -likely secondary to a supply/demand mismatch. -no evidence of coronary ischemia. -no further cardiac evaluation necessary at this time. (3) LVH (left ventricular hypertrophy): Plan: -moderate in degree on echocardiogram, January 2019. (4) Hypertension: Plan: -adequate control currently. (5) Hypercholesterolemia: Plan: -resume simvastatin when able. Admission and Anticipated Discharge Date Admission Date: February 05, 2021 Subjective The patient is resting comfortably in bed without complaints of chest pain or dyspnea. She is anxious for hospital discharge. Physical Exam Physical Exam: In general this is a well-developed well-nourished white female in no acute distress. HEENT exam is negative. Neck is supple with full carotid upstrokes. There are no carotid bruits. No JVD. There is no thyromegaly. Cardiovascular exam reveals a regular rhythm with a normal S1 and S2. No S3, S4, or murmurs are noted. Lungs are clear without rales, rhonchi, or wheezes. Abdomen is soft and nontender without bruits. Extremities reveal intact radial artery and posterior tibial pulses bilaterally. There is no peripheral edema. Results & Data ([facility]) Vital Signs (Past 12 Hours) Vital Signs Temp Pulse Resp BP Pulse Ox 02/09/21 11:39 36.6 C 67 17 183/74 H 99 02/09/21 07:49 36.7 C 74 17 154/80 H 96 02/09/21 02:29 36.7 C 65 18 194/75 H 98 Diagnostic Findings quality assurance monitor final notes sinus rhythm with occasional PACs and PVCs. PG Care Time/CCT Total # of Minutes Spent Total Time Spent with Patient: Total time spent is greater than 50% in coordination of care (as documented) at patient's floor/unit and/or counseling patient: Coding Level of Care Code 58128 Subseq Hosp Care Lvl 3 Diagnoses GI bleeding K92.2 Troponin I above reference range R77.8 LVH (left ventricular hypertrophy) I51.7 Hypertension I10 Hypercholesterolemia E78.00
--- NOTE | 2021-02-09 13:14 | Hospitalist Progress Note ---
Date of Service February 09, 2021 Assessment & Plan (1) Acute blood loss anemia: Plan: Kari Nelson is an 80 yo female with PMHx significant for recent right TKA on 01/31, HTN and hypothyroidism who was admitted to [facility] on 02/05 for acute blood loss anemia due to upper GIB. Acute Blood Loss Anemia 2/2 Upper GI bleed, resolving Acute-onset melena/hematochezia and worsening fatigue in context of increased NSAID use, Hgb 5.9 on admission, several bleeding duodenal ulcers on EGD --> acute upper GI bleed. Hgb ~9 and stable for >48 hours. - GI consulted - appreciate recs - EGD 02/06 showed several bleeding duodenal ulcers, s/p hemostasis of ulcers - Protonix gtt x72 hours; transition to Protonix 40mg PO BID this afternoon - continue regular diet - blood transfusions to maintain Hgb >8, given active bleed as well as Type II IA - trend CBC daily Demand ischemia in setting of anemia and tachycardia due to GI bleed Troponin peaked at 0.186, no symptoms of chest pain, EKG without ST/T wave changes --> suspect Type II IA in setting of acute blood loss anemia. 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 - requires outpatient MRI to further characterize the lesion and evaluate for malignancy Asymptomatic Bacteriuria Patient had UA and reflex urine culture - urine culture is positive for gram- negative bacilli. She had these tests ordered in the ED due to abdominal discomfort, but her discomfort was in the epigastric region in the setting of acute upper GI bleed. She had no dysuria or other urinary symptoms prior to hospitalization. - no treatment indicated at this time Right Knee pain, s/p TKA 01/31 - Ortho consulted - appreciate recs - oxycodone 5mg PO PRN, Tramadol 50mg PO for pain - PT consulted - recommends inpatient rehab - [facility] has bed ready for patient when medically stable Protein Calorie Malnutrition - consulted mechanical apprentice - appreciate recs Hypertension/Hyperlipidemia/GERD/Depression/Hypothyroidism - continue all home medications FEN/GI: regular DVT Prophylaxis: holding pharmacologic ppx in setting of GI bleed Code Status: Full code Disposition: PCU with tele, d/c to [facility] when medically stable (2) Abnormal CT of the abdomen: (3) Status post total right knee replacement: (4) Elevated troponin: (5) Protein calorie malnutrition: (6) Hypertension: (7) Hypercholesterolemia: (8) Hypothyroidism: Admission and Anticipated Discharge Date Admission Date: February 05, 2021 Supervising Physician Co-Signing Physician Notes Resident Physician Supervision Note: I independently interviewed and examined the patient and verified the feldman history and physical, reviewed labs and image studies and agree with resident Dr. Contreras findings and care plan. Subjective No acute events overnight. Patient denies syncope/near-syncope, dizziness/lightheadedness, epigastric burning/pain. Denies nausea/vomiting. Denies melena and hematochezia. Doing well without concerns. Review of Systems Review of Systems: All systems reviewed & are unremarkable except as noted in Subjective Physical Exam Physical Exam: General: A&Ox3. NAD. Cooperative. HEENT: Atraumatic, normocephalic. Moist mucus membranes. No conjunctival pallor. Pulm: CTAB A&P. -wheezes, -rales, -rhonchi. Symmetrical chest rise. No increase work of breathing. No respiratory distress. Cardiac: RRR, -mrg. Radial pulses intact and symmetrical. No LE edema. Abdominal: soft, non-tender, non-distended, NA BS x 4 Skin: warm, dry, no rash Results & Data Results & Data ([facility]) Vital Signs (Past 12 Hours) Vital Signs Temp Pulse Resp BP Pulse Ox 02/09/21 11:39 36.6 C 67 17 183/74 H 99 02/09/21 07:49 36.7 C 74 17 154/80 H 96 02/09/21 02:29 36.7 C 65 18 194/75 H 98 Resident Activity Tracking Resident Involvement: Resident Care Provided Care Provided: Adult Hospital Medicine
[2021-02-09] MEDS: LOSARTAN POTASSIUM 50 MG TAB PO SCH (14:18)
[2021-02-09] MEDS: PANTOprazole 40 MG TAB PO SCH (21:00)
[2021-02-09] MEDS: SIMVASTATIN 20 MG TAB PO SCH (21:00)
[2021-02-10] MEDS: oxyCODONE HCL IR 5 MG TAB (IMMEDIATE RELEASE) PO PRN ×2 (01:18→05:17)
[2021-02-10] MEDS: ACETAMINOPHEN 500 MG TAB PO SCH ×2 (05:17→14:14)
[2021-02-10] MEDS: LEVOTHYROXINE SODIUM 50 MCG TABLET PO SCH (05:17)
[2021-02-10 07:25] LABS: Basophils # (auto) 0.02 K/uL (0-0.2); Basophils % (auto) 0.3 %; Eosinophils # (auto) 0.42 K/uL (0-0.5); Eosinophils % (auto) 6.2 %; Hematocrit (blood only) 28.6 % (37-47); Hemoglobin 9.3 g/dL (12.0-16.0); Immature Granulocytes # (auto) 0.31 K/uL (0.00-0.02); Immature Granulocytes % (auto) 4.6 %; Lymphocytes # (auto) 0.72 K/uL (1.2-3.4); Lymphocytes % (auto) 10.7 %; Mean Corpuscular Hemoglobin 28.4 pg (25-34); Mean Corpuscular Hgb Conc 32.5 g/dL (32-36); Mean Corpuscular Volume 87.5 fL (80-100); Mean Platelet Volume 9.4 fL (7.4-10.4); Monocytes # (auto) 0.71 K/uL (0.11-0.59); Monocytes % (auto) 10.5 %; Neutrophils # (auto) 4.56 K/uL (1.4-6.5); Neutrophils % (auto) 67.7 %; Platelet Count 277 K/uL (130-400); RDW Standard Deviation 49.3 fL (36.4-46.3); Red Blood Count 3.27 M/uL (4.2-5.4); White Blood Count 6.74 K/uL (4.8-10.8)
[2021-02-10] MEDS: FLUoxetine HCL 20 MG CAP PO SCH (08:50)
[2021-02-10] MEDS: LOSARTAN POTASSIUM 50 MG TAB PO SCH (08:50)
[2021-02-10] MEDS: PANTOprazole 40 MG TAB PO SCH (08:50)
--- NOTE | 2021-02-10 08:55 | Progress Notes ---
DATE OF SERVICE: 02/10/2021. SUBJECTIVE: An 80-year-old female status post a right total knee replacement readmitted with a GI bl eed. She is doing much better. Pain seems to be getting a little bit better daily. Nausea seems to be improved. Just looks healthier and improving. OBJECTIVE: VITAL SIGNS: Temperature is 36.5. Vital signs are stable. PHYSICAL EXAMINATION: GENERAL: Shows a pleasant, elderly female. She is lying in bed. I had to wake her this morning. EXTREMITIES: Examination of the right leg reveals the leg to be well aligned. Dressings clean, dry and intact. Diffuse bruising around the leg, but improving. No drainage. NEUROLOGIC: She is neurologically intact. LABORATORY DATA: Hemoglobin 9.3. Hematocrit 28.6. Electrolytes have been stable. ASSESSMENT: An 80-year-old white female week and a half out from right knee replacement complicated by GI bleed postoperatively. She is doing much better. Hemoglobin appears stable. PLAN: 1. DVT prophylaxis include thigh-high TEDs, SCDs. 2. Pain control seems to be doing pretty well with current pain regimen. 3. Medical management as per the medicine service. 4. Disposition: She is orthopedically okay for discharge any time. She is going to plan on going b ack to the [facility]. I need to see her back at next week at her previously scheduled appointment. Any orthopedic questions can be directed to me at [phone]. Job ID: [id number]
[2021-02-10] MEDS: CYANOCOBALAMIN 500 MCG TABLET (VITAMIN B-12) PO SCH (12:31)
[2021-02-10] MEDS: CEROVITE ADV FORMULA TAB PO SCH (12:31)
--- NOTE | 2021-02-10 13:57 | Discharge Summary ---
Date of Service February 10, 2021 Admission HPI Per Admitting Provider Chief Complaint: Nausea, vomiting, anemia Primary Care Provider: Aiden Gilbert MD 80 y/o F Hx HTN, HLD, hypothyroidism, depression. Pt underwent a R TKE 01/31/21. She was DCd to rehab and reports nausea and vomiting since DC. She denies fevers. She has not had CP or SOB but does describe persistent weakness. Her wound has required frequent dressing changes due to occasional bleeding. Initial labs were notable for a hemoglobin of 5.9, protein malnutrition and a trop of 0.186. BUN is elevated however, electrolytes and renal function are otherwise WNL. XR of the abdomen did not show any acute abnormalities. An EKG demonstrated NSR with borderline ST changes inferior and laterally. A post-op Hb was 8.8 and > 11 pre-op. While in the ER, she had a melanotic BM. Vitals have remained stable. PMH: 1) HTN 2) HLD 3) Hypothyroidism 4) NSAID nephropathy - resolved 5) DJD 6) Depression 7) Breast CA Surgical: 1) L TKA 2018 2) R TKA 2020 3) Tubal ligation 4) Cholecystectomy Social: Does not drink or smoke Family: Noncontributory due to pt's age Admission Exam Per Admitting Provider General: AAO x 3, no distress ENT: No erythema or exudates, no thrush Eyes: ROSMERY, EOMI Head and neck: Normocephalic, atraumatic, No JVD, neck is supple. Chest/heart: Nontender, S1,2, RRR, no murmurs, no gallops Lungs: CTAB, no wheezing or crackles Abdomen: Nontender, nondistended, BS+ Neuro: AAO x 3, speech is clear, no unilateral weakness or loss of sensation, coordination intact Musculoskeletal: Did not mobilize R leg - no other joint inflammation Skin: Wound does not appear infected - there is some crusting of blood Extremities: Pulses +, minimal edema Principal Diagnosis Acute Blood Loss Anemia due to Upper GI Bleed Discharge Exam General: A&Ox3. NAD. Cooperative. HEENT: Atraumatic, normocephalic. Moist mucus membranes. No conjunctival pallor. Pulm: CTAB A&P. -wheezes, -rales, -rhonchi. Symmetrical chest rise. No increase work of breathing. No respiratory distress. Cardiac: RRR, -mrg. Radial pulses intact and symmetrical. No LE edema. Abdominal: soft, non-tender, non-distended, NA BS x 4 Skin: warm, dry, no rash Discharge Data Allergies Allergy/AdvReac Type Severity Reaction Status Date / Time NSAIDS (Non-Steroidal Allergy Severe RENAL Verified 02/05/21 15:05 Anti-Inflamma FAILURE adhesive Allergy Mild RASH Verified 02/05/21 15:05 latex Allergy Mild RASH Verified 02/05/21 15:05 procaine Allergy Mild prolonged Verified 02/05/21 15:05 effect orange Allergy Verified 02/10/21 11:10 orange juice Allergy Verified 02/10/21 11:10 pepper (genus Capsicum) Allergy Verified 02/10/21 11:10 sesame seed Allergy Verified 02/10/21 11:10 amoxicillin AdvReac Intermediate Diarrhea Verified 02/05/21 15:05 Consultations 02/05/21 18:50 Consult Gastroenterology Routine 02/05/21 21:25 Consult Cardiology Routine 02/06/21 09:25 Consult Orthopedic Surgery Routine Procedures Performed Operation Date: 02/06/21 18:45 Actual Procedures p EGD Hemostasis - Petey Cano Case, DO Ordered Studies 02/05/21 17:55 CT abd pelvis IV con only Stat Hospital Course (1) Acute blood loss anemia: Kari Nelson is an 80 yo female with PMHx significant for recent right TKA on 01/31, HTN and hypothyroidism who was admitted to [facility] from 02/05 - 02/10 for acute blood loss anemia due to upper GIB. Acute Blood Loss Anemia 2/2 Upper GI bleed from several duodenal ulcers, resolved Acute-onset melena/hematochezia and worsening fatigue in context of increased NSAID use, Hgb 5.9 on admission, several bleeding duodenal ulcers on EGD --> acute upper GI bleed. Hgb ~9 and stable for >3 days. - GI consulted - appreciate recs - EGD 02/06 showed several bleeding duodenal ulcers, s/p hemostasis of ulcers - Protonix gtt x72 hours; transition to Protonix 40mg PO BID on 02/09 - continue on discharge - advanced to regular diet without complications - f/u with PCP after discharge for further eval/management Demand ischemia in setting of anemia and tachycardia due to GI bleed Troponin peaked at 0.186, no symptoms of chest pain, EKG without ST/T wave changes --> suspect Type II VA in setting of acute blood loss anemia. 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 - requires outpatient MRI to further characterize the lesion and evaluate for malignancy Asymptomatic Bacteriuria Patient had UA and reflex urine culture - urine culture is positive for gram- negative bacilli. She had these tests ordered in the ED due to abdominal discomfort, but her discomfort was in the epigastric region in the setting of acute upper GI bleed. She had no dysuria or other urinary symptoms prior to hospitalization. - no treatment indicated at this time Right Knee pain, s/p TKA 01/31 - Ortho consulted - appreciate recs - Oxycodone 5mg PO Q4H and Tramadol 50mg PO for pain - can continue PRN after discharge - PT consulted and recommended that patient is stable to be discharged home Protein Calorie Malnutrition - Encouraged PO intake. recommend further discussion with PCP after discharge Hypertension/Hyperlipidemia/GERD/Depression/Hypothyroidism - continue all home medications (2) Abnormal CT of the abdomen: (3) Status post total right knee replacement: (4) Elevated troponin: (5) Protein calorie malnutrition: (6) Hypertension: (7) Hypercholesterolemia: (8) Hypothyroidism: Total Time Total Time Spent Total Time Spent (In Minutes): 30 minutes Discharge Plan Discharge Items Patient Disposition: Home - Home Health Services Reason For Visit: ANEMAI, N/V, TROP ELEVATION Discharge Diagnosis: Acute Blood Loss Anemia due to Upper GI Bleed Activity: Per Instructions section Non-emergency contact: Primary Care Provider Call non-emergency contact if: you have any medication questions and your symptoms worsen Follow-up/Referrals: Aiden Gilbert MD [Primary Care Provider] - (Please make a follow up appt with your PCP following your rehab stay.) Diet: Regular Addtl Attending Provider Instructions: You were admitted to [facility] from 02/05 - 02/10 for an upper GI bleed. You were given several units of blood to help make up for the blood you lost. Our GI doctors were consulted and were able to stop the bleeding by doing an EGD upper scope procedure and treating the ulcers in your small intestine that were bleeding. The ulcers were most likely due to excessive NSAID medication use. After the procedure, your bleeding stopped and you were able to be gradually advanced to a regular diet. You were also started on a medication called Protonix, which reduces the acid content in your stomach and will help the ulcers to heal. You will be discharged on 02/10 in good, stable condition. You should continue to take Protonix twice per day to help with stomach acidity - this was sent to [facility] in [place]. Please do not take NSAID medications, such as Ibuprofen, Aleve, Motrin or Advil. You should continue to take all of your home medications as scheduled. Please do not hesitate to take Tylenol, Tramadol or Oxycodone as needed for your knee pain as you recover from surgery. Please note that incidentally, there was a mass found on your left kidney during CT evaluation of your abdomen and pelvis. This mass is not related to the current hospitalization, but it needs to be addressed with your PCP, and you will need to have follow up imaging to ensure that it is not something serious. We hope you continue to feel well. It was a pleasure to assist with your care while you were hospitalized. Pending Studies at Discharge: No Stand-Alone Forms: [facility], Opioid Pain Management, Smoking Cessation Medications and DC Order Prescriptions: New pantoprazole 40 mg tablet,delayed release (DR/EC) 40 mg PO BID Qty: 60 RF: 0 oxycodone 10 mg tablet 10 mg PO TID PRN (Reason: pain) Qty: 10 RF: 0 Continued [id number] [Getdrz-Olzia-ARI (with antiox)] 500-500-66.7 mg tablet 1 tab PO QDL RF: 0 Centrum Silver Women 8 mg iron-400 mcg-300 mcg tablet 1 tab PO QDL RF: 0 PreserVision AREDS 14,320-226-200 dtlk-ob-meop capsule 1 cap PO BID RF: 0 melatonin 5 mg capsule 5 mg PO HS PRN (Reason: Sleep) RF: 0 lactase See Rx Instructions PO .COMPLEX PRN (Reason: DAIRY PRODUCTS) RF: 0 omega-3 fatty acids 500 mg capsule 1,000 mg PO QDL RF: 0 cyanocobalamin (vitamin B-12) 500 mcg tablet 1,000 mcg PO QDL RF: 0 cetirizine [Zyrtec] 10 mg tablet 5 mg PO DAILY PRN (Reason: Allergy Symptoms) RF: 0 calcium carbonate-vitamin D3 [Os-Glenn 500 + D3] 500 mg(1,250mg) -200 unit tablet 1 tab PO QDL RF: 0 losartan 50 mg tablet 50 mg PO QAM RF: 0 exemestane [Aromasin] 25 mg tablet 25 mg PO QDL RF: 0 levothyroxine 50 mcg tablet 50 mcg PO DAILYBB RF: 0 fluoxetine 20 mg capsule 20 mg PO QAM RF: 0 fluticasone propionate 50 mcg/actuation spray,suspension 2 sprays INTNAS QAM RF: 0 acetaminophen [Tylenol Extra Strength] 500 mg Tablet 1,000 mg PO Q8 30 Days Qty: 180 RF: 0 tramadol 50 mg Tablet 50 mg PO Q4H PRN (Reason: pain) Qty: 40 RF: 0 acetaminophen [Tylenol] 325 mg Tablet 650 mg PO Q4H MDD 3 GRAMS/24 HOURS PRN (Reason: Pain (Scale Score 1-3)) RF: 0 oxycodone 5 mg Tablet 5 mg PO Q4H PRN (Reason: Pain (Scale Score 7-10)) RF: 0 Probiotic 3 billion cell Capsule 3,000 mmu cells PO DAILY RF: 0 simvastatin 20 mg tablet 20 mg PO HS RF: 0 Discontinued famotidine 20 mg tablet 20 mg PO DAILY PRN (Reason: gerd) RF: 0 aspirin 81 mg Tablet,Delayed Release (Dr/Ec) 81 mg PO BID 45 Days Qty: 90 RF: 0 Discharge Orders: Discharge Order (Routine); Ordered 02/10/21 Ordered By: Kolby Brennan/Other Patient Handouts: Bleeding Gastrointestinal, Anatomy of the Digestive System Admission Data Admit Date/Time: 02/05/21 18:25 Attending Provider: Autumn Jimenez Admit Provider: Ernesto Acevedo Primary Care Provider: Aiden Gilbert Other Providers: Petey Guerra ; Noman Ramirez ; Isiah Rodriguez ; [facility],Referral Center Other Interventions: Discharge Summary Assessment (RN) Last Done: 02/10/21 14:49 Supervising Physician Co-Signing Physician Notes Resident Physician Supervision Note: I independently interviewed and examined the patient and verified the feldman history and physical, reviewed labs and image studies and agree with resident Dr. Contreras findings and care plan. Resident Activity Tracking Resident Involvement: Resident Care Provided Care Provided: Adult [facility]
[2021-02-10 15:53] VITALS: BP 126/76; PULSE 67; TEMP 98.2; O2SAT 97
== END 2021-02-10 17:22 | disposition home health service (06) | DRG 377 ==
LOC: ED 14:09 → SUATTDRO 18:25 → 2S 18:25 → 3E 02-09 10:49
DX: Z91.018 Allergy to other foods; I21.A1 Myocardial infarction type 2; Z79.890 Hormone replacement therapy; Z79.811 Long term (current) use of aromatase inhibitors; E46 Unspecified protein-calorie malnutrition; E03.9 Hypothyroidism, unspecified; Z79.82 Long term (current) use of aspirin; Z91.040 Latex allergy status; R01.1 Cardiac murmur, unspecified; E78.00 Pure hypercholesterolemia, unspecified; G89.18 Other acute postprocedural pain; T39.395A Adverse effect of other nonsteroidal anti-inflammatory drugs [NSAID], initial encounter; Z96.653 Presence of artificial knee joint, bilateral; Z91.048 Other nonmedicinal substance allergy status; F32.9 Major depressive disorder, single episode, unspecified; N28.89 Other specified disorders of kidney and ureter; K22.2 Esophageal obstruction; K21.9 Gastro-esophageal reflux disease without esophagitis; M25.561 Pain in right knee; K44.9 Diaphragmatic hernia without obstruction or gangrene; R82.71 Bacteriuria; Z88.0 Allergy status to penicillin; K26.4 Chronic or unspecified duodenal ulcer with hemorrhage; I10 Essential (primary) hypertension; E78.5 Hyperlipidemia, unspecified; Z79.899 Other long term (current) drug therapy; D62 Acute posthemorrhagic anemia; Z85.3 Personal history of malignant neoplasm of breast; Z88.6 Allergy status to analgesic agent

== ENCOUNTER 2023-04-29 15:18 | Inpatient (IN) ==
--- NOTE | 2023-04-29 15:26 | ED Triage Note ---
Date of Service April 29, 2023 History of Present Illness This patient was briefly evaluated while in triage. An abbreviated physical exam was performed. This patient is a 82-year-old Female who presents to the ED for evaluation of sent by Clarissa Trinidad has been having left back and leg pain "nerve problem" heart rate was abnormal/irregular in the office no chest pain/SOB/L/D could not appreciate elevated heart rate Physical Exam GENERAL: NAD CARDIOVASCULAR: tachycardic-heart rate 130s-150s RESPIRATORY: CTA ABDOMEN: BS x 4. Nontender to palpation. Initial orders for labs and / or imaging were placed and patient was placed in the waiting area until a bed is available. Please see further documentation for the full ED course. MDM / Impression Impression Impression: Atrial fibrillation with rapid ventricular response
[2023-04-29] MEDS ORDERED: dilTIAZem HCl 5 MG/ML 5 ML VIAL IV STA (16:00)
[2023-04-29] MEDS ORDERED: STAT IV Infusion **Titration per Protocol STA (16:00)
[2023-04-29 16:08] LABS: Basophils # (auto) 0.04 K/uL (0.00-0.20); Basophils % (auto) 0.6 %; Eosinophils # (auto) 0.57 K/uL (0.00-0.50); Hematocrit (blood only) 36.9 % (37.0-47.0); Hemoglobin 12.5 g/dl (12.0-16.0); Immature Granulocytes # (auto) 0.03 K/uL (0.01-0.20); Immature Granulocytes % (auto) 0.5 %; Lymphocytes # (auto) 1.17 K/uL (1.20-3.40); Lymphocytes % (auto) 18.5 %; Mean Corpuscular Hemoglobin 28.9 pg (25.0-34.0); Mean Corpuscular Hgb Conc 33.9 g/dL (32.0-36.0); Mean Corpuscular Volume 85.2 fL (80.0-100.0); Mean Platelet Volume 10.7 fL (9.4-12.4); Monocytes # (auto) 0.49 K/uL (0.11-0.59); Monocytes % (auto) 7.8 %; Neutrophils # (auto) 4.01 K/uL (1.40-6.50); Neutrophils % (auto) 63.6 %; Platelet Count 299 K/uL (130-400); RDW Coefficient of Variation 14.6 % (11.5-14.5); RDW Standard Deviation 45.1 fL (36.4-46.3); Red Blood Count 4.33 M/uL (4.20-5.40); White Blood Count 6.31 K/ul (4.8-10.8)
[2023-04-29] MEDS: dilTIAZem HCL 125 MG in DEXTROSE 5% 100 ML IV SCH (16:09)
--- NOTE | 2023-04-29 16:19 | Emergency Department Note ---
Impression & Plan Atrial fibrillation with rapid ventricular response, Elevated troponin ED Provider Note ED Provider Note NAME: EVANS DASILVA AGE:82 SEX: Female : 1940 ARRIVES VIA: INFORMANT: Patient ED PROVIDER(s): Gina Spivey DO CHIEF COMPLAINT: Referred by PCP for abnormal heart rate HPI: This is an 82-year-old female who presents emerged department after being referred here by her PCP for abnormal heart rate. Patient states she went to her PCPs office due to left hip and buttock pain. She states when they checked her vital signs they were concerned about her heart rate and did an EKG. She states they told her her heart rate was abnormal and she needed to come to the ER emergently. PAST MEDICAL HISTORY:See Below PAST SURGICAL HISTORY:See Below FAMILY HISTORY:See Below SOCIAL HISTORY:See Below HOME MEDICATIONS:See Below ALLERGIES:See Below VITALS:See Below PHYSICAL EXAMINATION: GENERAL: alert, well appearing, well nourished, no distress, non-toxic EYE EXAM: normal conjunctiva, PERRL and EOM's grossly intact OROPHARYNX: no exudate, no erythema, lips, buccal mucosa, and tongue normal and mucous membranes are moist NECK: supple, no nuchal rigidity, no adenopathy, non-tender LUNGS: Clear to auscultation. Normal chest wall mechanics, no w/r/r HEART: no murmurs, S1 normal and S2 normal ABDOMEN: abdomen soft, non-tender, normo-active bowel sounds, no masses, no rebound or guarding. BACK: Back is symmetrical on inspection and there is no deformity, no midline tenderness, no CVA tenderness. SKIN: no rashes, petechiae, orbruising UPPER EXTREMITIES: upper extremities are grossly normal. FROM, nml pulses b/l. LOWER EXTREMITIES: No pitting edema. FROM, nml pulses b/l. NEURO EXAM: Normal sensorium, cranial nerves II-XII grossly intact, normal speech, no facial droop,nogross weakness of arms, no gross weakness of legs. Gross sensation intact. No ataxia. Vital Signs: reviewed and remarkable Differential Diagnosis: Dysrhythmia, electrode abnormality, dehydration, anemia, thyroid storm, PE, ACS as well as others were considered MEDICAL DECISION MAKING: This is an 82-year-old female presents emergency department after being found to have an abnormal and elevated heart rate and A-fib on EKG when she presented to her PCPs office for evaluation of left hip and buttock pain. Patient was otherwise asymptomatic although was noted to have an elevated heart rate and was found to be in rapid A-fib on evaluation here. Labs drawn and sent, IV established, EKG and chest ray performed bedside interpreted by me and patient monitored on telemetry. I did discuss the findings with the patient at bedside and she verbalized understanding of the need for additional evaluation. Patient started on Cardizem bolus and drip with slight improvement of her heart rate although she did have a mild drop in her blood pressure additionally. I deferred decision regarding anticoagulation to the hospitalist team upon my discussion with them as patient does have a prior well-documented history of bl eeding duodenal ulcers that rendered her profoundly anemic requiring a blood transfusion. Patient does have elevated risk based on [id number] score. Case discussed with [facility]ist team for additional evaluation and management. Patient was noted to have an elevated troponin which I suspect is secondary to her rapid heart rate and underlying demand, I do not suspect primary ACS. Consultation(s): 1635: Discussed with Dr. Ruiz, [facility] hospitalist team. ER Treatment Provided: See below Diagnostics Interpreted By Me: -ECG: A-fib with RVR at 162, normal QRS and QTc, nonspecific ST/T wave changes likely rate related -Cardiac Monitoring: An order was placed for continuous cardiac monitoring. The monitor shows a rate of 148 with a.fib rhythm. -Laboratory studies: As stated above and show below. -Imaging studies: X-ray Chest: A single view study of the chest was reviewed and was negative for cardiomegaly, focal infiltrate, effusion, pulmonary edema, or wide mediastinum. Triage Nursing Note Reviewed Prior/Outside Records Reviewed Critical care: Critical care of 42 min performed to assess and manage high likelihood of life-threatening dysrhythmia, involving labs and imaging performed with assessment to evaluate dysrhythmia diagnosis with frequent reassessment. This time includes bedside time, treatment discussions with everett ent/family/consultants, documentation time and excludes procedure time. Past Med/Surg History Medical History Abnormal ECG Acute blood loss anemia Acute GI bleeding Cardiac murmur New onset Last stress ECHO 2018- showed no significant heart valve abnormalities Duodenal ulcer Elevated troponin Encounter for pre-operative examination Encounter for pre-operative examination GERD (gastroesophageal reflux disease) Well controlled and stable GI bleeding History of breast cancer Dx 2017; h/o lumpectomy + radiation No current issues Hypertension Hypothyroidism Laceration of right lower leg S/p laceration to right distal LE- 15 stitches (since removed) Dr. Rodriguez aware Lumbar radiculopathy, right LVH (left ventricular hypertrophy) follows with Dr. Koch Nausea and vomiting Osteoarthritis Overactive bladder Trochanteric bursitis of right hip Troponin I above reference range Surgical History History of breast biopsy History of cholecystectomy History of colonoscopy History of left knee replacement History of lumpectomy of left breast (02/22/17) Left partial mastectomy with SLNB 02/22/17 Dr. 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 Optical Frames Required: No Beliefs That Will Affect Care: None marital status: / Current Living Situation: Personal Care Facility Current Living Situation Comment: the [facility] current occupational status: retired How many Children do You have: 2 Other Information That Helps Us Care for You: No Feels Safe at Home: Yes Safety Concerns: Feels Safe At This Time Assistive Devices: None Allergies Allergies Allergy/AdvReac Type Severity Reaction Status Date / Time NSAIDS (Non-Steroidal Allergy Severe RENAL Verified 03/01/23 15:40 Anti-Inflamma FAILURE adhesive Allergy Mild RASH Verified 03/01/23 15:40 latex Allergy Mild RASH Verified 03/01/23 15:40 procaine Allergy Mild prolonged Verified 03/01/23 15:40 effect orange Allergy Verified 03/01/23 15:40 orange juice Allergy Verified 03/01/23 15:40 pepper (genus Capsicum) Allergy Verified 03/01/23 15:40 sesame seed Allergy Verified 03/01/23 15:40 amoxicillin AdvReac Intermediate Diarrhea Verified 03/01/23 15:40 Home Meds Home Medications Medication Instructions Recorded Confirmed calcium carbonate 500 mg-vitamin 1 tab PO QDL 12/18/19 04/29/23 D3 5 mcg (200 unit) tablet (Os-Glenn 500 + D3) cyanocobalamin (vitamin B-12) 500 1,000 mcg PO QDL 12/18/19 04/29/23 mcg tablet urfxohyhgxf-zcv-kqqtjxcmp-hrb 1 tab PO QDL 12/20/20 04/29/23 149-hyalur 500 mg-500 mg-66.7 mg tablet (Ixpviognhtf-Oiohirszktk-NKD (with antiox)) eibxaklw-litq-oemo 8 mg-folic 400 1 tab PO QDL 12/20/20 04/29/23 mcg-K 50 mcg-lutein 300 mcg tablet (Centrum Silver Women) vitamins A,C,V-sisw-pzvgga 4,296 1 cap PO BID 12/20/20 04/29/23 mcg-226 mg-90 mg capsule (PreserVision AREDS) fluticasone propionate 50 2 sprays intranasal QAM 01/11/21 04/29/23 mcg/actuation nasal spray,suspension clindamycin HCl 300 mg capsule 600 mg PO .COMPLEX 05/18/21 04/29/23 Saccharomyces boulardii 50 mg 50 mg PO TIDWMEAL 02/01/22 04/29/23 capsule hemp cream 1 applic topical UD PRN Pain 11/19/22 04/29/23 famotidine 40 mg tablet 40 mg PO DAILY PRN Heartburn 11/28/22 04/29/23 alprazolam 0.25 mg tablet 0.25 mg PO DAILY 04/29/23 04/29/23 calcium glycerophosphate 65 mg 130 mg PO UD PRN when eating 04/29/23 04/29/23 tablet problem food cyclobenzaprine 5 mg tablet 5 mg PO TID PRN Muscle Spasm 04/29/23 04/29/23 famotidine 40 mg tablet (Pepcid) 40 mg PO DAILY 04/29/23 04/29/23 levothyroxine 50 mcg tablet 50 mcg PO DAILYBB 04/29/23 04/29/23 loratadine 10 mg tablet (Claritin) 10 mg PO DAILY 04/29/23 04/29/23 melatonin 5 mg tablet 5 mg PO HS PRN Sleep 04/29/23 04/29/23 ceavnjdkgahg-gfrzynwd-qnotrt tablet 1 tab PO DAILY 04/29/23 04/29/23 omega-3 fatty acids 1,000 mg 1,000 mg PO QDL 04/29/23 04/29/23 capsule simvastatin 20 mg tablet 20 mg PO QPM 04/29/23 04/29/23 Previous Rx's Medication Instructions Recorded exemestane 25 mg tablet (Aromasin) 25 mg PO QDL #90 tabs 11/28/22 losartan 50 mg-hydrochlorothiazide 1 tab PO DAILY #90 tabs 11/28/22 12.5 mg tablet tramadol 50 mg tablet 50 mg PO Q6H PRN pain #20 tabs 01/23/23 fluoxetine 20 mg capsule 20 mg PO DAILY #90 caps 03/11/23 fluoxetine 10 mg capsule 10 mg PO DAILY #90 caps 04/03/23 prednisone 5 mg tablet See Rx Instructions .Route 04/29/23 .COMPLEX #18 tabs Results & Data (ED) Vital Signs Vital Signs - 24 hr 04/29/23 15:23 04/29/23 15:42 04/29/23 15:56 Temperature 36.3 C L Temperature Source Temporal Artery Scan Pulse Rate 154 H 180 H Pulse Rate [Apical] 163 H Pulse Rate from SpO2 Sensor Pulse Rhythm [Apical] Respiratory Rate 20 20 Respiratory Effort / Characteristics Non-Labored Respiratory Depth Normal Blood Pressure Blood Pressure [Left Arm] 113/93 Blood Pressure Mean Blood Pressure Mean [Left Arm] 99 Pulse Oximetry 95 97 Oxygen Delivery Method Room Air Room Air Sepsis Recent Fever Within 48 Hours No Sepsis New/Unexplained Change in Mental Status N/A Sepsis Action Taken by Nursing No Action Required 04/29/23 15:43 04/29/23 15:44 04/29/23 15:45 Temperature Temperature Source Pulse Rate 177 H 168 H 170 H Pulse Rate [Apical] Pulse Rate from SpO2 Sensor 143 H 160 H Pulse Rhythm [Apical] Respiratory Rate 22 24 19 Respiratory Effort / Characteristics Respiratory Depth Blood Pressure Blood Pressure [Left Arm] Blood Pressure Mean Blood Pressure Mean [Left Arm] Pulse Oximetry 98 88 L Oxygen Delivery Method Sepsis Recent Fever Within 48 Hours Sepsis New/Unexplained Change in Mental Status Sepsis Action Taken by Nursing 04/29/23 15:46 04/29/23 15:47 04/29/23 15:48 Temperature Temperature Source Pulse Rate 168 H 168 H 171 H Pulse Rate [Apical] Pulse Rate from SpO2 Sensor 167 H 156 H 141 H Pulse Rhythm [Apical] Respiratory Rate 18 27 H 20 Respiratory Effort / Characteristics Respiratory Depth Blood Pressure Blood Pressure [Left Arm] Blood Pressure Mean Blood Pressure Mean [Left Arm] Pulse Oximetry 86 L 99 97 Oxygen Delivery Method Sepsis Recent Fever Within 48 Hours Sepsis New/Unexplained Change in Mental Status Sepsis Action Taken by Nursing 04/29/23 15:49 04/29/23 15:50 04/29/23 15:51 Temperature Temperature Source Pulse Rate 163 H 164 H 147 H Pulse Rate [Apical] Pulse Rate from SpO2 Sensor 146 H 140 H 141 H Pulse Rhythm [Apical] Respiratory Rate 26 H 21 16 Respiratory Effort / Characteristics Respiratory Depth Blood Pressure Blood Pressure [Left Arm] Blood Pressure Mean Blood Pressure Mean [Left Arm] Pulse Oximetry 90 98 99 Oxygen Delivery Method Sepsis Recent Fever Within 48 Hours Sepsis New/Unexplained Change in Mental Status Sepsis Action Taken by Nursing 04/29/23 15:52 04/29/23 15:53 04/29/23 15:54 Temperature Temperature Source Pulse Rate 164 H 174 H Pulse Rate [Apical] Pulse Rate from SpO2 Sensor 132 H 154 H Pulse Rhythm [Apical] Respiratory Rate 13 20 Respiratory Effort / Characteristics Respiratory Depth Blood Pressure 99/80 L Blood Pressure [Left Arm] Blood Pressure Mean 87 Blood Pressure Mean [Left Arm] Pulse Oximetry 98 99 Oxygen Delivery Method Sepsis Recent Fever Within 48 Hours Sepsis New/Unexplained Change in Mental Status Sepsis Action Taken by Nursing 04/29/23 15:54 04/29/23 15:55 04/29/23 15:56 Temperature Temperature Source Pulse Rate 150 H 150 H Pulse Rate [Apical] Pulse Rate from SpO2 Sensor 146 H 138 H Pulse Rhythm [Apical] Respiratory Rate 28 H 16 Respiratory Effort / Characteristics Respiratory Depth Blood Pressure 113/93 Blood Pressure [Left Arm] Blood Pressure Mean 102 Blood Pressure Mean [Left Arm] Pulse Oximetry 96 97 Oxygen Delivery Method Sepsis Recent Fever Within 48 Hours Sepsis New/Unexplained Change in Mental Status Sepsis Action Taken by Nursing 04/29/23 15:56 04/29/23 16:13 04/29/23 16:35 Temperature Temperature Source Pulse Rate 180 H Pulse Rate [Apical] 105 H 142 H Pulse Rate from SpO2 Sensor 138 H Pulse Rhythm [Apical] Irregular Respiratory Rate 27 H 20 24 Respiratory Effort / Characteristics Non-Labored Respiratory Depth Normal Blood Pressure Blood Pressure [Left Arm] 108/57 L 97/77 L Blood Pressure Mean Blood Pressure Mean [Left Arm] 74 83 Pulse Oximetry 96 95 99 Oxygen Delivery Method Room Air Room Air Sepsis Recent Fever Within 48 Hours Sepsis New/Unexplained Change in Mental Status Sepsis Action Taken by Nursing Laboratory Data 04/29/23 15:38 04/29/23 15:38 Lab Results 04/29/23 04/29/23 04/29/23 Range/Units 15:38 15:38 15:38 WBC 6.31 (4.8-10.8) K/ul RBC 4.33 (4.20-5.40) M/uL Hgb 12.5 (12.0-16.0) g/dl Hct 36.9 L (37.0-47.0) % MCV 85.2 (80.0-100.0) fL MCH 28.9 (25.0-34.0) pg MCHC 33.9 (32.0-36.0) g/dL RDW Std Deviation 45.1 (36.4-46.3) fL RDW Coeff of Omar 14.6 H (11.5-14.5) % Plt Count 299 (130-400) K/uL MPV 10.7 (9.4-12.4) fL Immature Gran % (Auto) 0.5 % Neut % (Auto) 63.6 % Lymph % (Auto) 18.5 % Beadle % (Auto) 7.8 % Eos % (Auto) 9.0 % Baso % (Auto) 0.6 % Neut # (Auto) 4.01 (1.40-6.50) K/uL Lymph # (Auto) 1.17 L (1.20-3.40) K/uL Beadle # (Auto) 0.49 (0.11-0.59) K/uL Eos # (Auto) 0.57 H (0.00-0.50) K/uL Baso # (Auto) 0.04 (0.00-0.20) K/uL Immature Gran # (Auto) 0.03 (0.01-0.20) K/uL PT 10.4 (9.0-12.0) Seconds INR 0.9 (0.9-1.1) APTT 24.6 (21.0-31.0) Seconds PTT Ratio 0.9 D-Dimer 550 H* (0-500) ug/L FEU Sodium 140 (136-145) mmol/L Potassium 3.4 L (3.5-5.1) mmol/L Chloride 106 (98-107) mmol/L Carbon Dioxide 27 (21-32) mmol/L Anion Gap 7 (3-11) BUN 32 H (6-23) mg/dl Creatinine 1.16 (0.6-1.2) mg/dl Est Cr Clr Drug Dosing 30.3 ml/min Est GFR ( Amer) 50.1 ml/min Est GFR (Non-Af Amer) 43.2 ml/min BUN/Creatinine Ratio 27.6 H (10-20) Glucose 120 H (70-99(Fasting)) mg/dl Calcium 9.5 (8.6-10.3) mg/dl Magnesium 2.4 (1.7-2.4) mg/dl Total Bilirubin 0.3 (0.2-1.0) mg/dl AST 22 (13-39) U/L ALT 26 (7-52) U/L Alkaline Phosphatase 88 (34-104) U/L Troponin I High Sens 122.2 H* (0-14) pg/ml Total Protein 7.1 (6.0-8.3) gm/dl Albumin 4.4 (3.4-5.0) gm/dl Globulin 2.7 (2.5-4.0) gm/dl Albumin/Globulin Ratio 1.6 (0.9-2) TSH 3.248 (0.300-4.500) uIu/ml Administered Medications Apixaban (Apixaban 5 Mg Tablet) 5 mg PO BID [facility] Stop: 05/30/23 20:59 Last Admin: 04/30/23 20:31 Dose: 5 mg Documented By: PAH Calcium/Vitamin D (Calcium 600mg + Vit D 400 Iu Tab) 1 tab PO QDL JORGE Stop: 05/30/23 11:29 Last Admin: 04/30/23 10:17 Dose: 1 tab Documented By: KJL Cyanocobalamin (Cyanocobalamin (B-12) 500 Mcg Tablet) 1,000 mcg PO QDL JORGE Stop: 05/30/23 11:29 Last Admin: 04/30/23 10:17 Dose: 1,000 mcg Documented By: LAURA Fluoxetine HCl (Fluoxetine Hcl 10 Mg Cap) 10 mg PO DAILY JORGE Stop: 05/30/23 08:59 Last Admin: 04/30/23 08:29 Dose: 10 mg Documented By: LAURA Levothyroxine Sodium (Levothyroxine Sodium 50 Mcg Tablet) 50 mcg PO DAILYBB JORGE Stop: 05/30/23 06:29 Last Admin: 04/30/23 05:38 Dose: 50 mcg Documented By: FRANKI Metoprolol Tartrate (Metoprolol Tartrate 50 Mg Tab) 50 mg PO BID JORGE Stop: 05/30/23 16:24 Last Admin: 04/30/23 19:45 Dose: 50 mg Documented By: Admin: 04/30/23 16:47 Dose: 50 mg Documented By: NIKKI Metoprolol Tartrate (Metoprolol Tartrate 1 Mg/Ml Vial) 5 mg IV Q5M PRN PRN Reason: HR>120 Last Admin: 05/01/23 00:21 Dose: 5 mg Documented By: FRANKI Miscellaneous (Exemestane: Order Awaiting Action) 1 each N/A QS JORGE Stop: 05/30/23 07:59 Last Admin: 05/01/23 00:55 Dose: Not Given Documented By: Admin: 04/30/23 18:28 Dose: Not Given Documented By: Admin: 04/30/23 07:39 Dose: Not Given Documented By: LAURA Simvastatin (Simvastatin 20 Mg Tab) 20 mg PO QPM JORGE Stop: 05/29/23 20:59 Last Admin: 04/30/23 19:45 Dose: 20 mg Documented By: Admin: 04/29/23 21:39 Dose: 20 mg Documented By: FRANKI Discontinued Medications Diltiazem HCl (Diltiazem Hcl 5 Mg/Ml 5 Ml Vial) 15 mg IV NOW STA Stop: 04/29/23 16:01 Last Admin: 04/29/23 16:05 Dose: 15 mg Documented By: HELLEN Co-signed By: BHANU Heparin Sodium (Porcine) (Heparin Sod (Porcine) 1000 Unit/Ml) 3,000 units IV NOW ONE Stop: 04/29/23 18:46 Last Admin: 04/29/23 19:45 Dose: 3,000 units Documented By: HECTOR Co-signed By: QUIRINO Heparin Sodium (Porcine) (Heparin Sod (Porcine) 1000 Unit/Ml) 2,000 units IV NOW ONE Stop: 04/30/23 03:01 Last Admin: 04/30/23 02:58 Dose: 2,000 units Documented By: ARR Co-signed By: CHITRA Heparin Sodium (Porcine) (Heparin Sod (Porcine) 1000 Unit/Ml) 2,000 units IV NOW ONE Stop: 04/30/23 09:53 Last Admin: 04/30/23 11:20 Dose: 2,000 units Documented By: LAURA Co-signed By: ALIE Diltiazem HCl 125 mg/ Dextrose 125 mls @ 15 mls/hr IV .Q8H20M JORGE; Protocol Stop: 05/29/23 15:59 Last Titration: 04/30/23 16:48 Dose: 0 mg/hr, 0 mls/hr Documented By: NIKKI Co-signed By: PIYUSH Titration: 04/30/23 15:07 Dose: 15 mg/hr, 15 mls/hr Documented By: LAURA Co-signed By: CHINO Admin: 04/30/23 10:16 Dose: 15 mg/hr, 15 mls/hr Documented By: KJCheyenne Co-signed By: ALIE Titration: 04/30/23 09:23 Dose: 15 mg/hr, 15 mls/hr Documented By: LAURA Co-signed By: ALIE Titration: 04/30/23 07:08 Dose: 15 mg/hr, 15 mls/hr Documented By: FRANKI Co-signed By: LAURA Admin: 04/30/23 01:03 Dose: 15 mg/hr, 15 mls/hr Documented By: AAYUSH Co-signed By: ARR Titration: 04/30/23 01:03 Dose: 0 mg/hr, 0 mls/hr Documented By: AM Co-signed By: ARR Titration: 04/29/23 18:44 Dose: 15 mg/hr, 15 mls/hr Documented By: NRMirian Co-signed By: AMITA Titration: 04/29/23 16:37 Dose: 10 mg/hr, 10 mls/hr Documented By: NRB Co-signed By: EML Admin: 04/29/23 16:09 Dose: 5 mg/hr, 5 mls/hr Documented By: ES Co-signed By: JUN Heparin Sodium/Dextrose (Heparin Sodium/Dextrose) 25,000 units in 500 mls @ 17 mls/hr IV .Q24H JORGE; Protocol Stop: 04/30/23 20:59 Last Titration: 04/30/23 20:31 Dose: 0 units/hr, 0 mls/hr Documented By: PAH Co-signed By: ROSALES Titration: 04/30/23 15:07 Dose: 850 units/hr, 17 mls/hr Documented By: LAURA Co-signed By: CHINO Admin: 04/30/23 10:16 Dose: 850 units/hr, 17 mls/hr Documented By: KJL Co-signed By: ALIE Titration: 04/30/23 10:16 Dose: 750 units/hr, 15 mls/hr Documented By: KJL Co-signed By: LCS Titration: 04/30/23 07:08 Dose: 750 units/hr, 15 mls/hr Documented By: ARR Co-signed By: LAURA Titration: 04/30/23 02:58 Dose: 750 units/hr, 15 mls/hr Documented By: ARR Co-signed By: MARY Admin: 04/29/23 19:45 Dose: 650 units/hr, 13 mls/hr Documented By: SW Co-signed By: QUIRINO Pantoprazole Sodium 40 mg/ (Syringe) 10 mls @ 5 mls/min IV DAILY@1100 JORGE Stop: 04/30/23 11:59 Last Admin: 04/30/23 10:16 Dose: 5 mls/min Documented By: KJCheyenne Admin: 04/29/23 17:37 Dose: 5 mls/min Documented By: NRB Digoxin 250 mcg/ Syringe 10 mls @ 2 mls/min IV ONE ONE Stop: 04/29/23 17:04 Last Admin: 04/29/23 17:36 Dose: 2 mls/min Documented By: NRB Parenteral Electrolytes (Plasma-Lyte A Ph 7.4) 250 mls @ 999 mls/hr IV .Q16M ONE Stop: 04/29/23 17:30 Last Infusion: 04/29/23 18:04 Dose: 0 mls/hr Documented By: Admin: 04/29/23 17:41 Dose: 999 mls/hr Documented By: NRB Metoprolol Tartrate (Metoprolol Tartrate 1 Mg/Ml Vial) 5 mg IV Q5M PRN PRN Reason: Tachycardia Last Admin: 04/29/23 21:08 Dose: 5 mg Documented By: ARR Miscellaneous (Stat Iv Infusion Titration Per Protocol) 1 each N/A NOW STA Stop: 04/29/23 16:01 Last Admin: 04/29/23 16:06 Dose: 1 each Documented By: ES Miscellaneous (Heparin Iv Infusion*Stop Order) 1 each N/A ONE ONE Stop: 04/30/23 21:00 Last Admin: 04/30/23 20:31 Dose: 1 each Documented By: ROMMEL Potassium Chloride (Potassium Chloride Crtab 20 Meq Tabcr) 40 meq PO NOW STA Stop: 04/29/23 16:53 Last Admin: 04/29/23 17:44 Dose: 40 meq Documented By: NRB Imaging Data Radiologist's Impression: Chest X-Ray 04/29/23 15:27 XR chest 1V portable CLINICAL HISTORY: tachycardia TECHNIQUE: Single frontal radiograph of the chest was obtained. Comparison: Comparison is made to chest radiograph 02/01/2022 FINDINGS: No lines and tubes are seen. Cardiomegaly is noted. The lungs are clear. No evidence of pleural effusion or pneumothorax. IMPRESSION: No acute chest disease. ACT 112: Negative or not required by law. Electronically signed by: Alexei Chaney M.D. 04/29/2023 4:20 PM Discharge Plan Visit Data Chief Complaint: Abnormal Labs/Diagnostic Testing Stated Complaint: abnormal ekg ED Provider: Gina Spivey Discharge Problem: Atrial fibrillation with rapid ventricular response, Elevated troponin Patient Disposition: Admitted As Inpatient Discharge Instructions Interventions: ED Discharge Assessment Last Done: 04/29/23 20:17
[2023-04-29 16:21] LABS: Albumin Globulin Ratio 1.6 (0.9-2); Albumin Level 4.4 gm/dl (3.4-5.0); BUN Creatinine Ratio 27.6 (10-20); Bilirubin,Total 0.3 mg/dl (0.2-1.0); Calcium 9.5 mg/dl (8.6-10.3); Creatinine Clr Calc Pharmacy 30.3 ml/min; Est GFR (African American) 50.1 ml/min; Est GFR (Non-African American) 43.2 ml/min; Globulin 2.7 gm/dl (2.5-4.0); Magnesium 2.4 mg/dl (1.7-2.4); Potassium 3.4 mmol/L (3.5-5.1); Total Protein 7.1 gm/dl (6.0-8.3)
--- NOTE | 2023-04-29 16:30 | History & Physical Report ---
Date of Service April 29, 2023 Assessment & Plan (1) Atrial fibrillation with rapid ventricular response: Plan: New A-fib with RVR [id number] of at least 4 points. Recommend indefinite anticoagulation. Patient history of bleeding duodenal ulcers in 2020, stable since then. Aware/benefits of anticoagulation discussed at bedside, patient agreeable. We will start heparin drip overnight and follow for stability, if no signs of bleeding then can transition to Eliquis. Protonix started for gastric protection Patient started on diltiazem drip due to rapid rate above 160s Echo pending for EF reevaluation At time of bedside reevaluation patient has had diltiazem bolus and diltiazem drip uptitrated to 10. Patient's blood pressure is soft 90s/70s, heart rate [id number]. Due to soft pressures and inadequate rate control will initiate digoxin load. Dig 250 mcg ordered, repeat dose up to every 6 hours to maximum 1.5 over 24 hours. Transition to oral once dosing requirements and heart rate are stable. Dig level for the morning ordered Amiodarone deferred as patient has not been anticoagulated, is at increased risk of A-fib stroke, unclear how long patient has been in her first episode of A-fib Appears clinically volume depleted, received 500 cc NSS. Patient has never been on diuretics or had clinical heart failure. Additional to 50 cc Plasma- Lyte and potassium repletion pending. Magnesium is >2.0 (2) Acid reflux disease: Plan: Past history of duodenal ulcers and GI bleed In the setting of NSAID use Hemoglobin on admission 12.5, creatinine is at baseline/1.16 on admission. No bleeding prior to this admission /Benefits of stroke prophylaxis discussed with patient at bedside, agreeable to anticoagulation for [id number] of at least 4 points Protonix daily for gastric protection Will start on heparin gtt. and follow for clinical signs of bleeding/trend hemoglobin. If stable can transition to Eliquis (3) LVH (left ventricular hypertrophy): Plan: Patient denies any history of clinical heart failure, and has never been on Lasix/diuretics Echo pending (4) Hypothyroidism: Plan: Continue Synthroid (5) Hypertension: Plan: HTN - losartan-hctz held for hypotension Plan Anxiety/Depression - COntinue fluoxetine 30mg daily History of Present Illness Primary Care Provider: Aiden Gilbert MD Kari is a 82-year-old female with a past medical history of hypertension, LVH, diastolic dysfunction, hyperlipidemia, hypothyroidism, anemia who presents from her PCPs office with A-fib RVR. Patient follows with cardiology for hypertension, LVH, and hyperlipidemia but has not had A-fib prior. EKG on admission is consistent with A-fib with RVR rate 160s and suspected demand ischemia. Due to rapid rate and concern for perfusion patient was started on a diltiazem drip. Patient is not on calcium channel blockers or beta-blockers prior to this. She is not on anticoagulation. Pt was not initially started on anticoagulation due to history of duodenal ulcers and life threatening bleeding in 2020. Upper GI bleed from several duodenal ulcers int he setting of NSAID use Kendy seen at the bedside. She reports that she was told to come to the ER for fast heart rate, has not noticed any heart fluttering lightheadedness dizziness or chest pain. Notes that she was out of follow-up for hip pain when her heart was noted to be unusually fast and irregular. She denies any past history of A- fib. She does not recall having life-threatening duodenal ulcers in the past. With/benefits of anticoagulation for stroke prophylaxis with risk of bleeding with a history of gastric ulcers reviewed at bedside. Patient agreeable to anticoagulation for stroke prophylaxis. At time bedside assessment she has no chest pain, chest pressure, shortness of breath, difficulty breathing, lightheadedness, dizziness. Reports she has never had something like this before and is little nervous, but does not currently feel any symptoms. Full code Allergies Allergy/AdvReac Type Severity Reaction Status Date / Time NSAIDS (Non-Steroidal Allergy Severe RENAL Verified 03/01/23 15:40 Anti-Inflamma FAILURE adhesive Allergy Mild RASH Verified 03/01/23 15:40 latex Allergy Mild RASH Verified 03/01/23 15:40 procaine Allergy Mild prolonged Verified 03/01/23 15:40 effect orange Allergy Verified 03/01/23 15:40 orange juice Allergy Verified 03/01/23 15:40 pepper (genus Capsicum) Allergy Verified 03/01/23 15:40 sesame seed Allergy Verified 03/01/23 15:40 amoxicillin AdvReac Intermediate Diarrhea Verified 03/01/23 15:40 Home Medications Medication Instructions Recorded Confirmed Type calcium carbonate 500 mg-vitamin 1 tab PO QDL 12/18/19 04/29/23 History D3 5 mcg (200 unit) tablet (Os-Glenn 500 + D3) cyanocobalamin (vitamin B-12) 500 1,000 mcg PO QDL 12/18/19 04/29/23 History mcg tablet lmetlrypcnj-pad-ujkclpwsh-hrb 1 tab PO QDL 12/20/20 04/29/23 History 149-hyalur 500 mg-500 mg-66.7 mg tablet (Kfqoqhymcci-Xcovfyxuukc-GOE (with antiox)) fxjutaoe-hqum-jadr 8 mg-folic 400 1 tab PO QDL 12/20/20 04/29/23 History mcg-K 50 mcg-lutein 300 mcg tablet (Centrum Silver Women) vitamins A,C,C-krtc-ljsuvs 4,296 1 cap PO BID 12/20/20 04/29/23 History mcg-226 mg-90 mg capsule (PreserVision AREDS) fluticasone propionate 50 2 sprays intranasal QAM 01/11/21 04/29/23 History mcg/actuation nasal spray,suspension clindamycin HCl 300 mg capsule 600 mg PO .COMPLEX 05/18/21 04/29/23 History Saccharomyces boulardii 50 mg mg PO TIDWMEAL 02/01/22 04/29/23 History capsule hemp cream topical 11/19/22 04/29/23 History exemestane 25 mg tablet (Aromasin) 25 mg PO QDL #90 tabs 11/28/22 04/29/23 Rx famotidine 40 mg tablet 40 mg PO DAILY PRN Heartburn 11/28/22 04/29/23 History loratadine 10 mg tablet (Claritin) 10 mg PO DAILY PRN Allergy Symptoms 11/28/22 04/29/23 History losartan 50 mg-hydrochlorothiazide 1 tab PO DAILY #90 tabs 11/28/22 04/29/23 Rx 12.5 mg tablet tramadol 50 mg tablet 50 mg PO Q6H PRN pain #20 tabs 01/23/23 04/29/23 Rx fluoxetine 20 mg capsule 20 mg PO DAILY #90 caps 03/11/23 04/29/23 Rx fluoxetine 10 mg capsule 10 mg PO DAILY #90 caps 04/03/23 04/29/23 Rx alprazolam 0.25 mg tablet 0.25 mg PO DAILY 04/29/23 04/29/23 History cyclobenzaprine 5 mg tablet 5 mg PO TID PRN Muscle Spasm 04/29/23 04/29/23 History levothyroxine 50 mcg tablet 50 mcg PO DAILYBB 04/29/23 04/29/23 History prednisone 5 mg tablet See Rx Instructions .Route 04/29/23 04/29/23 Rx .COMPLEX #18 tabs simvastatin 20 mg tablet 20 mg PO QPM 04/29/23 04/29/23 History Past Med/Surg History Medical History (Updated 04/29/23 @ 16:57 by Roosevelt Ruiz MD) Abnormal ECG Acute blood loss anemia Acute GI bleeding Cardiac murmur New onset Last stress ECHO 2018- showed no significant heart valve abnormalities Duodenal ulcer Elevated troponin Encounter for pre-operative examination Encounter for pre-operative examination GERD (gastroesophageal reflux disease) Well controlled and stable GI bleeding History of breast cancer Dx 2016; h/o lumpectomy + radiation No current issues Hypertension Hypothyroidism Laceration of right lower leg S/p laceration to right distal LE- 15 stitches (since removed) Dr. Rodriguez aware Lumbar radiculopathy, right LVH (left ventricular hypertrophy) follows with Dr. Koch Nausea and vomiting Osteoarthritis Overactive bladder Trochanteric bursitis of right hip Troponin I above reference range Surgical History History of breast biopsy History of cholecystectomy History of colonoscopy History of left knee replacement History of lumpectomy of left breast (02/22/17) Left partial mastectomy with SLNB 02/22/17 Dr. Vora History of right knee surgery History of tonsillectomy and adenoidectomy Status post total right knee replacement Family History Unknown Aortic aneurysm Social History Smoking Status: Never smoker Second Hand Exposure: No; Do You Dip or Chew Tobacco: No; Hx Alcohol Use: Yes Alcohol type: wine Hx Substance Use: No Preferred Language: Lithuanian Communication Ability: Effective Visual Impairment: Partially Limited [employer] Officer Required: No Beliefs That Will Affect Care: None marital status: / Current Living Situation: Alone current occupational status: retired How many Children do You have: 2 Feels Safe at Home: Yes Assistive Devices: Walker Physical Exam Physical Exam: General: A&Ox3. NAD. Cooperative. HEENT: Atraumatic, normocephalic. Vision/hearing intact. MM dry. Pulm: CTAB A&P. -wheezes, -rales, -rhonchi. Symmetrical chest rise. No increased work of breathing. No respiratory distress. Cardiac: Rapid rate of [id number], slightly irregular. Radial pulses intact and symmetrical. no jvd Abdominal: Nontender, nondistended, soft. BS present. Extremities: Warm, dry. No pitting edema Results & Data Results & Data Vital Signs (Past 12 Hours) Vital Signs Temp Pulse Pulse Resp BP BP Pulse Ox 04/29/23 16:13 105 H 20 108/57 L 95 04/29/23 15:56 180 H 27 H 96 04/29/23 15:56 113/93 04/29/23 15:55 150 H 16 97 04/29/23 15:54 150 H 28 H 96 04/29/23 15:54 99/80 L 04/29/23 15:53 174 H 20 99 04/29/23 15:52 164 H 13 98 04/29/23 15:51 147 H 16 99 04/29/23 15:50 164 H 21 98 04/29/23 15:49 163 H 26 H 90 04/29/23 15:48 171 H 20 97 04/29/23 15:47 168 H 27 H 99 04/29/23 15:46 168 H 18 86 L 04/29/23 15:45 170 H 19 88 L 04/29/23 15:44 168 H 24 98 04/29/23 15:43 177 H 22 04/29/23 15:56 163 H 20 113/93 97 04/29/23 15:42 180 H 04/29/23 15:23 36.3 C L 154 H 20 95 O2 Del Method 04/29/23 16:13 Room Air 04/29/23 15:56 04/29/23 15:56 04/29/23 15:55 04/29/23 15:54 04/29/23 15:54 04/29/23 15:53 04/29/23 15:52 04/29/23 15:51 04/29/23 15:50 04/29/23 15:49 04/29/23 15:48 04/29/23 15:47 04/29/23 15:46 04/29/23 15:45 04/29/23 15:44 04/29/23 15:43 04/29/23 15:56 Room Air 04/29/23 15:42 04/29/23 15:23 Room Air PG Care Time/CCT Total # of Minutes Spent Total Time Spent with Patient: Total time spent is greater than 50% in coordination of care (as documented) at patient's floor/unit and/or counseling patient: Coding Level of Care Code 06108 INT INP/OBS CARE 3/75MIN Diagnoses Atrial fibrillation with rapid ventricular response I48.91 Acid reflux disease K21.9 LVH (left ventricular hypertrophy) I51.7 Hypothyroidism E03.9 Hypertension I10
[2023-04-29 16:32] LABS: INR 0.9 (0.9-1.1); Partial Thromboplastin Ratio 0.9; Partial Thromboplastin Time 24.6 Seconds (21.0-31.0); Prothrombin Time 10.4 Seconds (9.0-12.0)
[2023-04-29 16:38] LABS: Thyroid Stimulating Hormone 3.248 uIu/ml (0.300-4.500)
[2023-04-29 16:42] LABS: Troponin I High Sensitivity 122.2 pg/ml (0-14)
[2023-04-29 16:47] LABS: D Dimer 550 ug/L FEU (0-500)
[2023-04-29] MEDS ORDERED: POTASSIUM CHLORIDE CRTAB 20 MEQ TABCR PO STA (16:52)
[2023-04-29] MEDS ORDERED: DIGOXIN 250 MCG in SYRINGE 9 ML IV ONE (17:00)
[2023-04-29] MEDS ORDERED: Heparin IV Adult Wt-Based Low-Dose WITH Bolus Protocol IV SCH (17:00)
[2023-04-29] MEDS ORDERED: PLASMA-LYTE A 250 ML IV ONE (17:15)
[2023-04-29] MEDS: PANTOprazole 40 MG in SYRINGE 0 ML IV SCH (17:37)
[2023-04-29] MEDS ORDERED: FAMOTIDINE 40 MG TABLET PO PRN (18:41)
[2023-04-29] MEDS ORDERED: DIGOXIN 250 MCG in SYRINGE 9 ML IV PRN (18:41)
[2023-04-29] MEDS ORDERED: CYCLOBENZAPRINE HCL 5 MG TAB PO PRN (18:41)
[2023-04-29] MEDS ORDERED: traMADol HCL 50 MG TABLET PO PRN (18:41)
[2023-04-29] MEDS ORDERED: LORATADINE 10 MG TAB PO PRN (18:41)
[2023-04-29] MEDS ORDERED: ACETAMINOPHEN 325 MG TAB PO PRN (18:41)
[2023-04-29] MEDS ORDERED: HEPARIN SOD (PORCINE) 1000 UNIT/ML IV ONE (18:45)
[2023-04-29] MEDS: HEPARIN SODIUM/DEXTROSE 25,000 UNITS/500 ML BAG IV SCH (19:45)
[2023-04-29] MEDS ORDERED: METOPROLOL TARTRATE 1 MG/ML VIAL IV PRN (20:57)
[2023-04-29 21:34] LABS: Appearance Urine Clear (Clear); Bacteria Urine Automated Negative (Negative); Bilirubin Urine Negative (Negative); Blood Urine Negative (Negative); Color Urine Yellow; Glucose Urine UA Negative (Negative); Ketones Urine Negative (Negative); Leukocyte Esterase Urine Trace (Negative); Nitrite Urine Negative (Negative); Protein Urine Negative (Negative); RBC Urine Automated 0-4 /hpf (0-4); Specific Gravity Urine 1.011 (1.000-1.030); Urobilinogen Urine Negative (Negative); pH Urine 5.5 (4.5-7.5)
[2023-04-29] MEDS: SIMVASTATIN 20 MG TAB PO SCH (21:39)
[2023-04-30] MEDS: dilTIAZem HCL 125 MG in DEXTROSE 5% 100 ML IV SCH ×2 (01:03→10:16)
[2023-04-30 02:35] LABS: Partial Thromboplastin Ratio 1.1; Partial Thromboplastin Time 32.1 Seconds (21.0-31.0)
[2023-04-30] MEDS ORDERED: HEPARIN SOD (PORCINE) 1000 UNIT/ML IV ONE ×2 (03:00→09:52)
[2023-04-30] MEDS: LEVOTHYROXINE SODIUM 50 MCG TABLET PO SCH (05:38)
[2023-04-30 07:24] LABS: Basophils # (auto) 0.04 K/uL (0.00-0.20); Basophils % (auto) 0.7 %; Eosinophils # (auto) 0.69 K/uL (0.00-0.50); Eosinophils % (auto) 11.2 %; Hematocrit (blood only) 35.1 % (37.0-47.0); Hemoglobin 11.5 g/dl (12.0-16.0); Immature Granulocytes # (auto) 0.02 K/uL (0.01-0.20); Immature Granulocytes % (auto) 0.3 %; Lymphocytes # (auto) 1.29 K/uL (1.20-3.40); Mean Corpuscular Hemoglobin 27.8 pg (25.0-34.0); Mean Corpuscular Hgb Conc 32.8 g/dL (32.0-36.0); Mean Platelet Volume 10.6 fL (9.4-12.4); Monocytes # (auto) 0.46 K/uL (0.11-0.59); Monocytes % (auto) 7.5 %; Neutrophils # (auto) 3.64 K/uL (1.40-6.50); Neutrophils % (auto) 59.3 %; Platelet Count 234 K/uL (130-400); RDW Coefficient of Variation 14.6 % (11.5-14.5); Red Blood Count 4.13 M/uL (4.20-5.40); White Blood Count 6.14 K/ul (4.8-10.8)
[2023-04-30 07:37] LABS: BUN Creatinine Ratio 26.7 (10-20); Calcium 9.1 mg/dl (8.6-10.3); Creatinine Clr Calc Pharmacy 44.1 ml/min; Est GFR (African American) 68.1 ml/min; Est GFR (Non-African American) 58.7 ml/min; Potassium 3.8 mmol/L (3.5-5.1)
[2023-04-30] MEDS: [UNRECOGNIZED DRUG - OTHER] SCH ×2 (07:39→18:28)
--- NOTE | 2023-04-30 07:41 | Electrocardiogram Report ---
Test Reason : Blood Pressure : / mmHG Vent. Rate : 162 BPM Atrial Rate : 000 BPM P-R Int : 000 ms QRS Dur : 092 ms QT Int : 248 ms P-R-T Axes : 000 000 189 degrees QTc Int : 407 ms Atrial fibrillation with rapid ventricular response Marked ST abnormality, possible inferolateral subendocardial injury Abnormal ECG When compared with ECG of 06-FEB-2021 04:32, Atrial fibrillation has replaced Sinus rhythm Vent. rate has increased BY 80 BPM Confirmed by Deangelo Hill ([id number]) on 04/30/2023 7:41:25 AM Referred By: Confirmed By:Deangelo Hill
[2023-04-30] MEDS: FLUoxetine HCL 10 MG CAP PO SCH (08:29)
[2023-04-30 09:49] LABS: Partial Thromboplastin Ratio 1.2; Partial Thromboplastin Time 33.7 Seconds (21.0-31.0)
[2023-04-30] MEDS ORDERED: Nursing to Pharmacy Communication SCH (10:00)
[2023-04-30] MEDS: HEPARIN SODIUM/DEXTROSE 25,000 UNITS/500 ML BAG IV SCH (10:16)
[2023-04-30] MEDS: PANTOprazole 40 MG in SYRINGE 0 ML IV SCH (10:16)
[2023-04-30] MEDS: CYANOCOBALAMIN (B-12) 500 MCG TABLET PO SCH (10:17)
[2023-04-30] MEDS: CALCIUM 600MG + VIT D 400 IU TAB PO SCH (10:17)
--- NOTE | 2023-04-30 16:04 | Cardiology Consultation ---
Date of Consultation April 30, 2023 Assessment & Plan (1) Atrial fibrillation with rapid ventricular response: (2) New onset atrial fibrillation: (3) Hypokalemia: (4) Hypertension: Plan 82-year-old woman incidentally found to have new onset atrial fibrillation with rapid ventricular response. She is tolerating the tachycardia remarkably well, no ischemic symptoms or evidence of congestive heart failure. Mild troponin elevation likely demand ischemia. Blood pressure has been variable, in part this may be due to inaccuracies in readings during atrial fibrillation with tachycardia. There was some concern about hypotension to the degree that digoxin was added to her regimen to avoid further depressing BP. She did receive 1 dose of metoprolol 5 mg IV as well. Would recommend transitioning to beta-shine or, if necessary, combination beta-shine/calcium channel shine for rate control, since there will be less risk of hypotension. Start metoprolol tartrate 25 mg p.o. every 6 hours (only hold for SBP less than 85 mmHg) with upward titration as needed while weaning diltiazem drip off as rate drops below 100 bpm. Additional doses of metoprolol tartrate 5 mg IV q 2 hours could be given on a PRN basis once she is off the diltiazem drip. Agree with anticoagulation, could change from heparin to apixaban 5 mg twice daily (although age greater than 80, her weight is greater than 60 kg and her renal function is normal so full dose apixaban appropriate). Given hypokalemia on admission and normal renal function, would add low-dose potassium supplement to her medical regimen to ensure potassium greater than 4.0. Further recommendations based upon her response to metoprolol titration/diltiazem weaning. Patient has followed with Dr. Koch from a cardiac perspective and should follow-up with him as an outpatient. I will inform him of her admission, likely he will visit her tomorrow. History of Present Illness Reason for Consultation: New atrial fibrillation Requesting Physician: Andres Francisco MD Attending Physician: Andres Francisco MD History of Present Illness 82-year-old woman with history of hypertension/LVH/diastolic dysfunction, no other cardiac history, who was incidentally found to have atrial fibrillation with rapid ventricular response while seen in primary care provider's office and admitted 04/29/2023. At recent baseline living at [place], she walks [id number] steps a day (recorded on her Fitbit) without any dyspnea, chest pain, or other symptoms. She presented to [facility] with chronic left hip and low back pain and was noted to have tachycardia, prompting ECG which showed atrial fibrillation with a ventricular rate of 167 bpm. She denies any subjective palpitations, orthostasis, orthopnea, PND, presyncope, or syncope. She has occasional mild ankle edema which has not increased recently. She does not note any decline in her exercise tolerance/stamina. She has a remote history of significant GI bleeding, felt secondary to nonsteroidals for arthritis. Chronic mild anemia but no recent bleeding history. At the time of my evaluation this afternoon, her ventricular rate was 100-120 bpm, she had no somatic complaints. Allergies Allergy/AdvReac Type Severity Reaction Status Date / Time NSAIDS (Non-Steroidal Allergy Severe RENAL Verified 03/01/23 15:40 Anti-Inflamma FAILURE adhesive Allergy Mild RASH Verified 03/01/23 15:40 latex Allergy Mild RASH Verified 03/01/23 15:40 procaine Allergy Mild prolonged Verified 03/01/23 15:40 effect orange Allergy Verified 03/01/23 15:40 orange juice Allergy Verified 03/01/23 15:40 pepper (genus Capsicum) Allergy Verified 03/01/23 15:40 sesame seed Allergy Verified 03/01/23 15:40 amoxicillin AdvReac Intermediate Diarrhea Verified 03/01/23 15:40 Home Medications Medication Instructions Recorded Confirmed Type calcium carbonate 500 mg-vitamin 1 tab PO QDL 12/18/19 04/29/23 History D3 5 mcg (200 unit) tablet (Os-Glenn 500 + D3) cyanocobalamin (vitamin B-12) 500 1,000 mcg PO QDL 12/18/19 04/29/23 History mcg tablet mzrimnaqrjf-eun-jbyzicstp-hrb 1 tab PO QDL 12/20/20 04/29/23 History 149-hyalur 500 mg-500 mg-66.7 mg tablet (Zmhjlidcqom-Smmimytwhgl-UJL (with antiox)) utdefriy-ajdd-ziso 8 mg-folic 400 1 tab PO QDL 12/20/20 04/29/23 History mcg-K 50 mcg-lutein 300 mcg tablet (Centrum Silver Women) vitamins A,C,K-zdva-uttdmn 4,296 1 cap PO BID 12/20/20 04/29/23 History mcg-226 mg-90 mg capsule (PreserVision AREDS) fluticasone propionate 50 2 sprays intranasal QAM 01/11/21 04/29/23 History mcg/actuation nasal spray,suspension clindamycin HCl 300 mg capsule 600 mg PO .COMPLEX 05/18/21 04/29/23 History Saccharomyces boulardii 50 mg 50 mg PO TIDWMEAL 02/01/22 04/29/23 History capsule hemp cream 1 applic topical UD PRN Pain 11/19/22 04/29/23 History exemestane 25 mg tablet (Aromasin) 25 mg PO QDL #90 tabs 11/28/22 04/29/23 Rx famotidine 40 mg tablet 40 mg PO DAILY PRN Heartburn 11/28/22 04/29/23 History losartan 50 mg-hydrochlorothiazide 1 tab PO DAILY #90 tabs 11/28/22 04/29/23 Rx 12.5 mg tablet tramadol 50 mg tablet 50 mg PO Q6H PRN pain #20 tabs 01/23/23 04/29/23 Rx fluoxetine 20 mg capsule 20 mg PO DAILY #90 caps 03/11/23 04/29/23 Rx fluoxetine 10 mg capsule 10 mg PO DAILY #90 caps 04/03/23 04/29/23 Rx alprazolam 0.25 mg tablet 0.25 mg PO DAILY 04/29/23 04/29/23 History calcium glycerophosphate 65 mg 130 mg PO UD PRN when eating 04/29/23 04/29/23 History tablet problem food cyclobenzaprine 5 mg tablet 5 mg PO TID PRN Muscle Spasm 04/29/23 04/29/23 History famotidine 40 mg tablet (Pepcid) 40 mg PO DAILY 04/29/23 04/29/23 History levothyroxine 50 mcg tablet 50 mcg PO DAILYBB 04/29/23 04/29/23 History loratadine 10 mg tablet (Claritin) 10 mg PO DAILY 04/29/23 04/29/23 History melatonin 5 mg tablet 5 mg PO HS PRN Sleep 04/29/23 04/29/23 History sqwrgxfmcwjz-raxmrlkz-viffwe tablet 1 tab PO DAILY 04/29/23 04/29/23 History omega-3 fatty acids 1,000 mg 1,000 mg PO QDL 04/29/23 04/29/23 History capsule prednisone 5 mg tablet See Rx Instructions .Route 04/29/23 04/29/23 Rx .COMPLEX #18 tabs simvastatin 20 mg tablet 20 mg PO QPM 04/29/23 04/29/23 History Patient History Medical History Abnormal ECG Acute blood loss anemia Acute GI bleeding Cardiac murmur New onset Last stress ECHO 2019- showed no significant heart valve abnormalities Duodenal ulcer Elevated troponin Encounter for pre-operative examination Encounter for pre-operative examination GERD (gastroesophageal reflux disease) Well controlled and stable GI bleeding History of breast cancer Dx 2017; h/o lumpectomy + radiation No current issues Hypertension Hypothyroidism Laceration of right lower leg S/p laceration to right distal LE- 15 stitches (since removed) Dr. Michael hale Lumbar radiculopathy, right LVH (left ventricular hypertrophy) follows with Dr. Koch Nausea and vomiting Osteoarthritis Overactive bladder Trochanteric bursitis of right hip Troponin I above reference range Surgical History History of breast biopsy History of cholecystectomy History of colonoscopy History of left knee replacement History of lumpectomy of left breast (02/22/17) Left partial mastectomy with SLNB 02/22/17 Dr. Vora History of right knee surgery History of tonsillectomy and adenoidectomy Status post total right knee replacement Family History Unknown Aortic aneurysm Social History Smoking Status: Never smoker Second Hand Exposure: No; Do You Dip or Chew Tobacco: No; Hx Alcohol Use: No Hx Substance Use: No Preferred Language: Cymraes Communication Ability: Effective Visual Impairment: Partially Limited Globe Changer Required: No Beliefs That Will Affect Care: None marital status: / Current Living Situation: Personal Care Facility Current Living Situation Comment: [facility] current occupational status: retired How many Children do You have: 2 Other Information That Helps Us Care for You: No Feels Safe at Home: Yes Safety Concerns: Feels Safe At This Time Assistive Devices: None Physical Exam Physical Exam: No distress. BP 113/97 mmHg Pulse 120 bpm and irregular. Skin: no ecchymoses or generalized lesions. HEENT: unremarkable. Neck: JVP at the clavicle at 90 degrees, no carotid bruits. Lungs: clear. Cardiac: Irregular/tachycardic rhythm, grossly normal S1 and S2, 2/6 apical holosystolic murmur on difficult exam (tachycardia). No diastolic murmur. Abdomen: benign. Extremities: Trace pretibial edema, pulses intact. Neurologic: normal affect and conversation, nonfocal. Results & Data Vital Signs (Past 12 Hours) Vital Signs Temp Pulse Pulse Resp BP BP Pulse Ox 04/30/23 15:27 98.2 F 122 H 18 113/97 98 04/30/23 12:05 98.2 F 91 H 18 136/64 98 04/30/23 08:00 86 04/30/23 07:31 98.1 F 94 H 12 119/78 97 O2 Del Method 04/30/23 15:27 Room Air 04/30/23 12:05 Room Air 04/30/23 08:00 04/30/23 07:31 Room Air Laboratory Results Troponin 195498 range without significant peak and decay. Potassium initially 3.4, currently 3.8, BUN 24, creatinine 0.9. Magnesium 2.4. Hemoglobin 11.5 with normal WBC and platelet count. Diagnostic Findings ECG showed atrial fibrillation with ventricular rate 162 bpm, diffuse ST depression with inverted T waves. Compared with 02/06/2021 ECG, atrial fibrillation replaced sinus rhythm and ventricular rate has increased by 80 bpm. Chest x-ray unremarkable. Echocardiogram obtained during a stress echo study 2018 was unremarkable, normal LV size and systolic function with moderate LVH. No significant valvular disease. Mildly dilated left atrium. No evidence of ischemia at 87% maximum predicted heart rate after 4 minutes on a Sampson protocol. PG Care Time/CCT Total # of Minutes Spent Total Time Spent with Patient: Total time spent is greater than 50% in coordination of care (as documented) at patient's floor/unit and/or counseling patient: Coding Level of Care Code 10556 INT INP/OBS CARE 3/75MIN Diagnoses Atrial fibrillation with rapid ventricular response I48.91 New onset atrial fibrillation I48.91 Hypokalemia E87.6 Hypertension I10
--- NOTE | 2023-04-30 16:31 | Hospitalist Progress Note ---
Date of Service April 30, 2023 Assessment & Plan (1) Atrial fibrillation with rapid ventricular response: Plan: New onset. Case discussed with cardiology. Heparin drip has been switched to Eliquis. Diltiazem drip has been switched to metoprolol. Digoxin has been discontinued. Free T3 and free T4 are normal. Cardiac echo report pending. (2) Acid reflux disease: Plan: No sign of active GI bleeding. Continue PPI therapy (3) LVH (left ventricular hypertrophy): Plan: Patient denies any history of clinical heart failure, and has never been on Lasix/diuretics. Echo pending (4) Hypothyroidism: Plan: Free T3 and free T4 levels are normal. Continue Synthroid (5) Hypertension: Plan: Controlled. She is now on metoprolol. Losartan on hold Plan Hopeful discharge to home tomorrow, May 01 Admission and Anticipated Discharge Date Admission Date: April 29, 2023 Subjective Alert and pleasant. No acute distress. Case discussed with cardiology. Heparin drip has been switched to Eliquis and diltiazem drip switched to metoprolol. Free T3 and free T4 are normal. Cardiac echo requested and pending Review of Systems Review of Systems: Constitutional-no fever or chills ENT-no blurred vision, no double vision, no epistaxis, no sore throat Respiratory-no cough, no wheezing, no shortness of breath Cardiac-no palpitations, no chest pain, no syncope GI-no nausea, vomiting, diarrhea, melena, hematochezia -no urinary retention, no urinary incontinence, no dysuria, no hematuria Musculoskeletal-no joint pain, no muscle tenderness Skin-no bruising, no rashes, no pruritus Neuro-no isolated weakness, no paresthesia, no weakness Psych-no depression, no anxiety Physical Exam Physical Exam: General-alert and oriented x3, no fevers, no chills HEENT-head atraumatic and normocephalic, pupils equal and reactive to light, extraocular muscles intact Neck-no lymphadenopathy or thyromegaly, trachea midline Chest-clear to auscultation percussion. No rales wheezing or rhonchi Cardiac-irregular rhythm. Slightly rapid rate. Normal S1 and S2 Abdomen-normal bowel sounds, nontender, no hepatosplenomegaly Extremities-no cyanosis, clubbing, or edema Neuro-cranial nerves II through XII intact, motor and sensory function within normal limits, strength symmetrical, no focal deficits Psych-normal affect, normal mood Results & Data Results & Data Vital Signs (Past 12 Hours) Vital Signs Temp Pulse Pulse Resp BP BP Pulse Ox 04/30/23 15:27 36.8 C 122 H 18 113/97 98 04/30/23 12:05 36.8 C 91 H 18 136/64 98 04/30/23 08:00 86 04/30/23 07:31 36.7 C 94 H 12 119/78 97 O2 Del Method 04/30/23 15:27 Room Air 04/30/23 12:05 Room Air 04/30/23 08:00 04/30/23 07:31 Room Air Laboratory Results 04/30/23 07:07 04/30/23 07:07 PG Care Time/CCT Total # of Minutes Spent Total Time Spent with Patient: Total time spent is greater than 50% in coordination of care (as documented) at patient's floor/unit and/or counseling patient: Coding Level of Care Code 42450 SUB INP/OBS CARE 3/50MIN Diagnoses Atrial fibrillation with rapid ventricular response I48.91 Acid reflux disease K21.9 LVH (left ventricular hypertrophy) I51.7 Hypothyroidism E03.9 Hypertension I10
[2023-04-30] MEDS: METOPROLOL TARTRATE 50 MG TAB PO SCH ×2 (16:47→19:45)
--- NOTE | 2023-04-30 17:28 | XCELERA ---
[id number]
[2023-04-30 19:24] LABS: Partial Thromboplastin Time 29.5 Seconds (21.0-31.0)
[2023-04-30] MEDS: SIMVASTATIN 20 MG TAB PO SCH (19:45)
[2023-04-30] MEDS: APIXABAN 5 MG TABLET PO SCH (20:31)
[2023-04-30] MEDS ORDERED: [UNRECOGNIZED DRUG - REMARK] ONE (20:59)
[2023-05-01] MEDS: METOPROLOL TARTRATE 1 MG/ML VIAL IV PRN ×3 (00:21→11:09)
[2023-05-01] MEDS: [UNRECOGNIZED DRUG - OTHER] SCH ×4 (00:55→23:44)
[2023-05-01] MEDS: LEVOTHYROXINE SODIUM 50 MCG TABLET PO SCH (05:54)
[2023-05-01 06:59] LABS: Basophils # (auto) 0.06 K/uL (0.00-0.20); Eosinophils # (auto) 0.79 K/uL (0.00-0.50); Eosinophils % (auto) 13.1 %; Hematocrit (blood only) 34.6 % (37.0-47.0); Hemoglobin 11.2 g/dl (12.0-16.0); Immature Granulocytes # (auto) 0.02 K/uL (0.01-0.20); Immature Granulocytes % (auto) 0.3 %; Lymphocytes # (auto) 1.16 K/uL (1.20-3.40); Lymphocytes % (auto) 19.2 %; Mean Corpuscular Hemoglobin 27.8 pg (25.0-34.0); Mean Corpuscular Hgb Conc 32.4 g/dL (32.0-36.0); Mean Corpuscular Volume 85.9 fL (80.0-100.0); Mean Platelet Volume 10.7 fL (9.4-12.4); Monocytes # (auto) 0.47 K/uL (0.11-0.59); Monocytes % (auto) 7.8 %; Neutrophils # (auto) 3.54 K/uL (1.40-6.50); Neutrophils % (auto) 58.6 %; Platelet Count 264 K/uL (130-400); RDW Coefficient of Variation 14.4 % (11.5-14.5); RDW Standard Deviation 45.2 fL (36.4-46.3); Red Blood Count 4.03 M/uL (4.20-5.40); White Blood Count 6.04 K/ul (4.8-10.8)
[2023-05-01 07:27] LABS: BUN Creatinine Ratio 25.8 (10-20); Calcium 9.2 mg/dl (8.6-10.3); Creatinine Clr Calc Pharmacy 41.3 ml/min; Est GFR (African American) 62.2 ml/min; Est GFR (Non-African American) 53.6 ml/min; Potassium 4.1 mmol/L (3.5-5.1)
[2023-05-01] MEDS: APIXABAN 5 MG TABLET PO SCH ×2 (08:08→20:48)
[2023-05-01] MEDS: METOPROLOL TARTRATE 50 MG TAB PO SCH ×2 (08:08→20:45)
[2023-05-01] MEDS: FLUoxetine HCL 10 MG CAP PO SCH (08:08)
[2023-05-01] MEDS: PANTOprazole 40 MG TAB PO SCH (08:08)
[2023-05-01] MEDS: CALCIUM 600MG + VIT D 400 IU TAB PO SCH (11:09)
[2023-05-01] MEDS: CYANOCOBALAMIN (B-12) 500 MCG TABLET PO SCH (11:09)
[2023-05-01] MEDS ORDERED: METOPROLOL TARTRATE 50 MG TAB PO SCH ×2 (13:00→21:00)
--- NOTE | 2023-05-01 13:35 | Cardiology Progress Note ---
Date of Service May 01, 2023 Assessment & Plan (1) Atrial fibrillation with rapid ventricular response: Plan: -recent onset, asymptomatic. -ventricular response still elevated, increase metoprolol tartrate to 50 mg q.i.d. -agree with Eliquis 5 mg b.i.d. -consider addition of intravenous followed by oral digoxin if necessary. (2) Hypertension: Plan: -adequate control on current regimen. Admission and Anticipated Discharge Date Admission Date: April 29, 2023 Subjective The patient is resting comfortably in bedside chair without complaints of chest pain, dyspnea, or palpitations. Physical Exam Physical Exam: In general is well-developed well-nourished white female in no acute distress. HEENT exam is negative. Neck is supple with full carotid upstrokes. There are no carotid bruits. Jugular venous pressure is flat at 90. There is no thyromegaly. Cardiovascular exam reveals irregular irregular rhythm with distant heart sounds. No obvious murmurs. Lungs are clear without rales, rhonchi or wheezes. Abdomen is soft and nontender without bruits. Extremities reveal intact radial artery pulses bilaterally. There is no peripheral edema. Results & Data Vital Signs (Past 12 Hours) Vital Signs Temp Pulse Pulse Resp BP BP BP 05/01/23 12:05 36.7 C 142 H 18 149/83 H 05/01/23 11:24 122 H 05/01/23 11:09 128 H 111/78 05/01/23 07:47 37.0 C 124 H 18 122/100 05/01/23 02:33 36.6 C 122 H 20 131/99 05/01/23 02:17 124 H 131/99 05/01/23 01:59 134 H 147/112 H Pulse Ox O2 Del Method 05/01/23 12:05 98 Room Air 05/01/23 11:24 05/01/23 11:09 05/01/23 07:47 98 Room Air 05/01/23 02:33 95 Room Air 05/01/23 02:17 05/01/23 01:59 Diagnostic Findings library monitor notes atrial fibrillation with a rapid ventricular response. PG Care Time/CCT Total # of Minutes Spent Total Time Spent with Patient: Total time spent is greater than 50% in coordination of care (as documented) at patient's floor/unit and/or counseling patient: Coding Level of Care Code 91425 SUB INP/OBS CARE 350MIN Diagnoses Atrial fibrillation with rapid ventricular response I48.91 Hypertension I10
[2023-05-01] MEDS ORDERED: dilTIAZem HCl 60 MG TAB PO SCH (14:00)
--- NOTE | 2023-05-01 15:25 | Hospitalist Progress Note ---
Date of Service May 01, 2023 Assessment & Plan (1) Atrial fibrillation with rapid ventricular response: Plan: New onset. Diltiazem added to metoprolol. Heparin drip has been switched to Eliquis. Digoxin has been discontinued but may need to be restarted if her ventricular response rate remains elevated. Free T3 and free T4 are normal. Cardiac echo report noted. Moderate LVH with normal ejection fraction. (2) Acid reflux disease: Plan: No sign of active GI bleeding. Continue PPI therapy (3) LVH (left ventricular hypertrophy): Plan: Patient denies any history of clinical heart failure, and has never been on Las ix/diuretics. Echo results noted (4) Hypothyroidism: Plan: Free T3 and free T4 levels are normal. Continue Synthroid replacement therapy at current dosage (5) Hypertension: Plan: Controlled. She is now on metoprolol and diltiazem. Losartan has been discontinued. Plan Anticipate discharge to home when ventricular rate is controlled. Admission and Anticipated Discharge Date Admission Date: April 29, 2023 Subjective Alert and oriented. No complaints. Diltiazem added to metoprolol for heart rate control. She remains in atrial fibrillation with rapid ventricular rate. She is now on Eliquis. Mild hypokalemia has been corrected. Free T3 and free T4 are normal. Cardiac echo reveals moderate left ventricular hypertrophy with normal ejection fraction. Review of Systems Review of Systems: Constitutional-no fever or chills ENT-no blurred vision, no double vision, no epistaxis, no sore throat Respiratory-no cough, no wheezing, no shortness of breath Cardiac-no palpitations, no chest pain, no syncope GI-no nausea, vomiting, diarrhea, melena, hematochezia -no urinary retention, no urinary incontinence, no dysuria, no hematuria Musculoskeletal-no joint pain, no muscle tenderness Skin-no bruising, no rashes, no pruritus Neuro-no isolated weakness, no paresthesia, no weakness Psych-no depression, no anxiety Physical Exam Physical Exam: General-alert and oriented x3, no fevers, no chills HEENT-head atraumatic and normocephalic, pupils equal and reactive to light, extraocular muscles intact Neck-no lymphadenopathy or thyromegaly, trachea midline Chest-clear to auscultation percussion. No rales wheezing or rhonchi Cardiac-irregular rhythm. Rapid rate. Normal S1 and S2 Abdomen-normal bowel sounds, nontender, no hepatosplenomegaly Extremities-no cyanosis, clubbing, or edema Neuro-cranial nerves II through XII intact, motor and sensory function within normal limits, strength symmetrical, no focal deficits Psych-normal affect, normal mood Results & Data Results & Data Vital Signs (Past 12 Hours) Vital Signs Temp Pulse Pulse Resp BP BP Pulse Ox 05/01/23 08:00 122 H 05/01/23 12:05 36.7 C 142 H 18 149/83 H 98 05/01/23 11:24 122 H 05/01/23 11:09 128 H 111/78 05/01/23 07:47 37.0 C 124 H 18 122/100 98 O2 Del Method 05/01/23 08:00 05/01/23 12:05 Room Air 05/01/23 11:24 05/01/23 11:09 05/01/23 07:47 Room Air Laboratory Results 05/01/23 06:26 05/01/23 06:26 PG Care Time/CCT Total # of Minutes Spent Total Time Spent with Patient: Total time spent is greater than 50% in coordination of care (as documented) at patient's floor/unit and/or counseling patient: Coding Level of Care Code 43820 SUB INP/OBS CARE 3/50MIN Diagnoses Atrial fibrillation with rapid ventricular response I48.91 Acid reflux disease K21.9 LVH (left ventricular hypertrophy) I51.7 Hypothyroidism E03.9 Hypertension I10
[2023-05-01] MEDS: dilTIAZem HCl 60 MG TAB PO SCH ×2 (16:51→20:45)
[2023-05-01] MEDS: SIMVASTATIN 20 MG TAB PO SCH (20:46)
[2023-05-02] MEDS: LEVOTHYROXINE SODIUM 50 MCG TABLET PO SCH (05:38)
[2023-05-02] MEDS: APIXABAN 5 MG TABLET PO SCH (07:50)
[2023-05-02] MEDS: METOPROLOL TARTRATE 50 MG TAB PO SCH (07:50)
[2023-05-02] MEDS: PANTOprazole 40 MG TAB PO SCH (07:50)
[2023-05-02] MEDS: dilTIAZem HCl 60 MG TAB PO SCH (07:51)
[2023-05-02] MEDS: [UNRECOGNIZED DRUG - OTHER] SCH (07:51)
[2023-05-02] MEDS: FLUoxetine HCL 10 MG CAP PO SCH (07:51)
[2023-05-02 08:07] LABS: Potassium 3.9 mmol/L (3.5-5.1)
[2023-05-02 08:13] LABS: BUN Creatinine Ratio 27.2 (10-20); Creatinine Clr Calc Pharmacy 43.7 ml/min; Est GFR (African American) 66.3 ml/min; Est GFR (Non-African American) 57.2 ml/min
[2023-05-02 08:34] VITALS: O2SAT 98
[2023-05-02 08:41] LABS: Basophils # (auto) 0.05 K/uL (0.00-0.20); Basophils % (auto) 0.8 %; Eosinophils # (auto) 0.75 K/uL (0.00-0.50); Eosinophils % (auto) 12.4 %; Hematocrit (blood only) 37.2 % (37.0-47.0); Hemoglobin 12.1 g/dl (12.0-16.0); Immature Granulocytes # (auto) 0.03 K/uL (0.01-0.20); Immature Granulocytes % (auto) 0.5 %; Lymphocytes # (auto) 0.98 K/uL (1.20-3.40); Lymphocytes % (auto) 16.2 %; Mean Corpuscular Hemoglobin 28.3 pg (25.0-34.0); Mean Corpuscular Hgb Conc 32.5 g/dL (32.0-36.0); Mean Corpuscular Volume 87.1 fL (80.0-100.0); Mean Platelet Volume 10.5 fL (9.4-12.4); Monocytes # (auto) 0.37 K/uL (0.11-0.59); Monocytes % (auto) 6.1 %; Neutrophils # (auto) 3.87 K/uL (1.40-6.50); Platelet Count 276 K/uL (130-400); RDW Coefficient of Variation 14.5 % (11.5-14.5); RDW Standard Deviation 46.2 fL (36.4-46.3); Red Blood Count 4.27 M/uL (4.20-5.40); White Blood Count 6.05 K/ul (4.8-10.8)
[2023-05-02] MEDS ORDERED: METOPROLOL TARTRATE 100 MG TAB PO SCH (09:00)
[2023-05-02] MEDS ORDERED: dilTIAZem HCL 300 MG CAPCR PO SCH (09:00)
[2023-05-02] MEDS ORDERED: DIGOXIN 250 MCG in SYRINGE 9 ML IV STA (09:38)
--- NOTE | 2023-05-02 10:57 | Discharge Summary ---
Date of Service May 02, 2023 Admission HPI Per Admitting Provider Kari is a 82-year-old female with a past medical history of hypertension, LVH, diastolic dysfunction, hyperlipidemia, hypothyroidism, anemia who presents from her PCPs office with A-fib RVR. Patient follows with cardiology for hypertension, LVH, and hyperlipidemia but has not had A-fib prior. EKG on admission is consistent with A-fib with RVR rate 160s and suspected demand ischemia. Due to rapid rate and concern for perfusion patient was started on a diltiazem drip. Patient is not on calcium channel blockers or beta-blockers prior to this. She is not on anticoagulation. Pt was not initially started on anticoagulation due to history of duodenal ulcers and life threatening bleeding in 2020. Upper GI bleed from several duodenal ulcers int he setting of NSAID use Kendy seen at the bedside. She reports that she was told to come to the ER for fast heart rate, has not noticed any heart fluttering lightheadedness dizziness or chest pain. Notes that she was out of follow-up for hip pain when her heart was noted to be unusually fast and irregular. She denies any past history of A- fib. She does not recall having life-threatening duodenal ulcers in the past. With/benefits of anticoagulation for stroke prophylaxis with risk of bleeding with a history of gastric ulcers reviewed at bedside. Patient agreeable to anticoagulation for stroke prophylaxis. At time bedside assessment she has no chest pain, chest pressure, shortness of breath, difficulty breathing, lightheadedness, dizziness. Reports she has never had something like this before and is little nervous, but does not currently feel any symptoms. Full code Principal Diagnosis New onset atrial fibrillation with rapid ventricular rate, demand ischemia, hypokalemia Discharge Exam General-alert and oriented x3, no fevers, no chills HEENT-head atraumatic and normocephalic, pupils equal and reactive to light, extraocular muscles intact Neck-no lymphadenopathy or thyromegaly, trachea midline Chest-clear to auscultation percussion. No rales wheezing or rhonchi Cardiac-irregular rhythm. Controlled rate. Normal S1 and S2 Abdomen-normal bowel sounds, nontender, no hepatosplenomegaly Extremities-no cyanosis, clubbing, or edema Neuro-cranial nerves II through XII intact, motor and sensory function within normal limits, strength symmetrical, no focal deficits Psych-normal affect, normal mood Discharge Data Allergies Allergy/AdvReac Type Severity Reaction Status Date / Time NSAIDS (Non-Steroidal Allergy Severe RENAL Verified 03/01/23 15:40 Anti-Inflamma FAILURE adhesive Allergy Mild RASH Verified 03/01/23 15:40 latex Allergy Mild RASH Verified 03/01/23 15:40 procaine Allergy Mild prolonged Verified 03/01/23 15:40 effect orange Allergy Verified 03/01/23 15:40 orange juice Allergy Verified 03/01/23 15:40 pepper (genus Capsicum) Allergy Verified 03/01/23 15:40 sesame seed Allergy Verified 03/01/23 15:40 amoxicillin AdvReac Intermediate Diarrhea Verified 03/01/23 15:40 Consultations 04/29/23 16:42 ED Decision to Admit Stat 04/30/23 08:43 Consult Cardiology Routine Hospital Course (1) Atrial fibrillation with rapid ventricular response: New onset. Diltiazem added to metoprolol. Heparin drip has been switched to Eliquis. Digoxin has been discontinued. Diltiazem switch to CD formulation todayMay 02. Heart rate is mostly controlled but occasionally greater than 100. Free T3 and free T4 are normal. Cardiac echo report noted. Moderate LVH with normal ejection fraction. (2) Acid reflux disease: No sign of active GI bleeding. Continue PPI therapy (3) LVH (left ventricular hypertrophy): Patient denies any history of clinical heart failure, and has never been on Lasix/diuretics. Echo results noted (4) Hypothyroidism: Free T3 and free T4 levels are normal. Continue Synthroid replacement therapy at current dosage (5) Hypertension: Controlled. She is now on metoprolol and diltiazem. Losartan has been discontinued. Plan Home todayMay 02 Total Time Total Time Spent Total Time Spent (In Minutes): 45 minutes Discharge Plan Discharge Items Patient Disposition: Home - Self-Care Reason For Visit: NEW AFIB RVR Discharge Diagnosis: New onset atrial fibrillation with rapid ventricular rate, demand ischemia, hypokalemia Activity: Resume your previous activity Non-emergency contact: Primary Care Provider Call non-emergency contact if: you have any medication questions and your symptoms worsen Follow-up/Referrals: Aiden Gilbert MD [Primary Care Provider] - Diet: Regular and Heart Healthy Addtl Attending Provider Instructions: Take metoprolol and diltiazem as directed for heart rate controlled. Eliquis (apixaban) is a blood thinner taken because of trial fibrillation Pending Studies at Discharge: No Stand-Alone Forms: My [facility], Smoking Cessation Medications and DC Order Prescriptions: New Eliquis 5 mg Tablet 5 mg PO BID Qty: 60 0RF metoprolol tartrate 100 mg Tablet 100 mg PO BID Qty: 60 0RF diltiazem HCl [Cardizem CD] 300 mg Capsule,Extended Release 24hr 300 mg PO QAM Qty: 30 0RF Continued [id number] [Sgxvac-Hkhhp-OGL (with antiox)] 500-500-66.7 mg tablet 1 tab PO QDL Centrum Silver Women 8 mg iron-400 mcg-300 mcg tablet 1 tab PO QDL PreserVision AREDS [id number] xyfz-[id number] capsule 1 cap PO BID tramadol 50 mg tablet 50 mg PO Q6H PRN (Reason: pain) Qty: 20 0RF fluoxetine 20 mg capsule 20 mg PO DAILY Qty: 90 1RF fluoxetine 10 mg capsule 10 mg PO DAILY Qty: 90 1RF cyanocobalamin (vitamin B-12) 500 mcg tablet 1,000 mcg PO QDL hemp cream 1 applic topical UD PRN (Reason: Pain) famotidine 40 mg tablet 40 mg PO DAILY PRN (Reason: Heartburn) exemestane [Aromasin] 25 mg tablet 25 mg PO QDL Qty: 90 3RF Rx Instructions: TAKE 1 TABLET DAILY AFTER A MEAL clindamycin HCl 300 mg capsule 600 mg PO .COMPLEX Rx Instructions: 600 mg PO before dental procedures Saccharomyces boulardii 50 mg capsule 50 mg PO TIDWMEAL calcium carbonate-vitamin D3 [Os-Glenn 500 + D3] 500 mg(1,250mg) -200 unit tablet 1 tab PO QDL prednisone 5 mg tablet See Rx Instructions .ROUTE .COMPLEX Qty: 18 0RF Rx Instructions: TAKE 3 TABS DAILY X3 DAYS, 2 TABS DAILY X3 DAYS, AND 1 TAB DAILY X3 DAYS.; WITH FOOD. fluticasone propionate 50 mcg/actuation spray,suspension 2 sprays INTNAS QAM Rx Instructions: USE 2 SPRAYS I EACH NOSTRIL ONCE DAILY cyclobenzaprine 5 mg tablet 5 mg PO TID PRN (Reason: Muscle Spasm) levothyroxine 50 mcg tablet 50 mcg PO DAILYBB simvastatin 20 mg tablet 20 mg PO QPM alprazolam 0.25 mg Tablet 0.25 mg PO DAILY omega-3 fatty acids 1,000 mg Capsule 1,000 mg PO QDL melatonin 5 mg Tablet 5 mg PO HS PRN (Reason: Sleep) famotidine [Pepcid] 40 mg Tablet 40 mg PO DAILY loratadine [Claritin] 10 mg Tablet 10 mg PO DAILY Centrum Silver Tablet 1 tab PO DAILY calcium glycerophosphate 65 mg Tablet 130 mg PO UD PRN (Reason: when eating problem food) Rx Instructions: per pt Discontinued losartan-hydrochlorothiazide 50-12.5 mg tablet 1 tab PO DAILY Qty: 90 3RF Discharge Orders: Discharge Order (Routine); Ordered 05/02/23 Ordered By: Andres Francisco Admission Data Admit Date/Time: 04/29/23 17:10 Attending Provider: Andres Francisco Admit Provider: Roosevelt Ruiz Primary Care Provider: Aiden Gilbert Other Providers: Roosevelt Ruiz ; Naun Lopez ; Zacarias Carlton ; Gregorio Flores ; Isiah Andersen ; Deangelo Hill ; Javon Diop Jr ; Noman Ramirez ; Lucrecia Rodgers ; Marcela Wilder ; Jhonatan Clayton ; Jhonaatn Torres ; Andres Cummings ; Rosibel Friedman ; Mana Gates ; Michael Schreiber ; Salvador Jenkins ; Isiah Judd V. ; Maxwell Cruz Coding Level of Care Code 26446 INP/OBS DISCH >30 MIN Diagnoses Atrial fibrillation with rapid ventricular response I48.91 Acid reflux disease K21.9 LVH (left ventricular hypertrophy) I51.7 Hypothyroidism E03.9 Hypertension I10
[2023-05-02] MEDS: CALCIUM 600MG + VIT D 400 IU TAB PO SCH (11:11)
[2023-05-02] MEDS: CYANOCOBALAMIN (B-12) 500 MCG TABLET PO SCH (11:12)
[2023-05-02 11:59] VITALS: BP 118/73; PULSE 75; RESP 18; TEMP 98.4
== END 2023-05-02 14:02 | disposition home or self-care (01) | DRG 309 ==
LOC: ED 15:18 → SUATTDRO 17:10 → EDINP 17:10 → 2E 20:49
DX: Z91.040 Latex allergy status; K21.9 Gastro-esophageal reflux disease without esophagitis; E03.9 Hypothyroidism, unspecified; Z79.52 Long term (current) use of systemic steroids; Z88.0 Allergy status to penicillin; E78.5 Hyperlipidemia, unspecified; I24.89 Other forms of acute ischemic heart disease; Z79.890 Hormone replacement therapy; D64.9 Anemia, unspecified; I48.91 Unspecified atrial fibrillation; Z79.899 Other long term (current) drug therapy; Z79.51 Long term (current) use of inhaled steroids; I11.9 Hypertensive heart disease without heart failure; E87.6 Hypokalemia; Z88.4 Allergy status to anesthetic agent

== ENCOUNTER 2023-05-10 10:47 | Inpatient (IN) ==
[2023-05-10] MEDS ORDERED: dilTIAZem HCl 5 MG/ML 5 ML VIAL IV STA (11:32)
[2023-05-10] MEDS ORDERED: STAT IV Infusion **Titration per Protocol STA (11:32)
--- NOTE | 2023-05-10 11:39 | Emergency Department Note ---
Impression & Plan Atrial fibrillation with rapid ventricular response, Transaminitis, Non-ST elevation NC (NSTEMI), Acute exacerbation of CHF (congestive heart failure), Elevated brain natriuretic peptide (BNP) level ED Provider Note HISTORY OF PRESENT ILLNESS: Patient is an 82-year-old female presenting with shortness of breath, lower extremity edema and weight gain. Patient reports for the last week she has been having progressive worsening swelling of her bilateral lower extremities. She i s also been having shortness of breath, most notably at night when she tries to lay flat. She has had to sleep in her recliner for the last few days secondary to the shortness of breath. She does report a 10 pound weight gain in the last week. She was recently admitted to the hospital for A-fib with RVR and started on diltiazem and metoprolol. She reports that the side effects are listed for t hat medicine and if she had weight gain or swelling she should present to the doctor. She denies any chest pain. She denies any palpitations. She is on Eliquis. Denies any DVT or PE history. ROS: as above PHYSICAL EXAM: Constitutional: Patient appears in no acute distress. HENT: Head: Normocephalic and atraumatic. Eyes: EOMI, PERRL Mouth/Throat: Mucous membranes moist. Neck: Trachea midline. Neck supple. Cardiovascular: Tachycardic with irregularly irregular rhythm. No murmurs, rubs or gallops. Intact distal pulses. Pulmonary/Chest: No respiratory distress. Breath sounds clear and equal bilaterally. No wheezes or rales. Abdominal: Abdomen soft, no tenderness, rebound or guarding. Musculoskeletal: No tenderness or deformity noted. Nonpitting edema of the bilateral lower extremities extending to the mid tibia Skin: Warm and dry. No rash, erythema, pallor or cyanosis Psychiatric: Appropriate mood and affect for situation. Neurological: Alert and keenly responsive. CN II-XII grossly intact, moving all extremities equally and fully. MDM: - Vitals signs showed tachycardia and hypertension. - History obtained via patient. Patient presents with shortness of breath, weight gain and lower extremity edema. Patient reports for the last week she did have impressively worsening lower extremity edema and a 10 pound weight gain. She also reports she is short of breath, most notably at night. Denies any chest pain. She was recently admitted and diagnosed with A-fib with RVR started on diltiazem and metoprolol and Eliquis. - Chronic conditions affecting care: HTN; hypothyroidism; LVH - Differential diagnoses include, but are not limited to: pulmonary edema; CHF exacerbation; ACS; dysrhythmia; electrolyte abnormality - Order placed for continuous cardiac monitoring. At this time, monitor showed rate of 135 bpm with irregular rhythm, per my interpretation. - External medical records reviewed. Echocardiogram read dated 04/30/2023 was reviewed. Patient had normal left ventricular function with an EF of 55 to 60%. - EKG reviewed by myself showed atrial fibrillation with rapid ventricular rate. Rate 134 bpm. QTc 376. No acute ischemic changes. - Laboratory workup interpreted by myself showed normal WBC; stable elect rolytes; transaminitis (AST 89; ALT 186); elevated troponin (16.8); elevated BNP (813) - CXR negative for pneumonia or obvious pulmonary vascular congestion, per my interpretation - Patient given 100 mg PO metoprolol - Patient given 10 mg IV cardizem and started on cardizem drip. - Limited cardiac echo ordered, has concern that the patient may be having related failure - Troponin elevation is likely secondary to demand ischemia from rapid rate. - Discussion was had with social insurance administrator about patient's case and need for admission - Hospitalist consulted for admission - Patient [facility] for further evaluation and management. ASSESSMENT AND PLAN: Diagnosis: Afib with RVR; CHF exacerbation; NSTEMI; elevated BNP; transaminitis Plan: admit Past Med/Surg History Medical History (Updated 05/10/23 @ 14:06 by Carmella Son MD) Abnormal ECG Acute blood loss anemia Acute GI bleeding Cardiac murmur New onset Last stress ECHO 2018- showed no significant heart valve abnormalities Duodenal ulcer Elevated troponin Encounter for pre-operative examination Encounter for pre-operative examination GERD (gastroesophageal reflux disease) Well controlled and stable GI bleeding History of breast cancer Dx 2017; h/o lumpectomy + radiation No current issues Hypertension Hypothyroidism Laceration of right lower leg S/p laceration to right distal LE- 15 stitches (since removed) Dr. Rodriguez aware Lumbar radiculopathy, right LVH (left ventricular hypertrophy) follows with Dr. Koch Nausea and vomiting Osteoarthritis Overactive bladder Trochanteric bursitis of right hip Troponin I above reference range Surgical History History of breast biopsy History of cholecystectomy History of colonoscopy History of left knee replacement History of lumpectomy of left breast (02/22/17) Left partial mastectomy with SLNB 02/22/17 Dr. Vora History of right knee surgery History of tonsillectomy and adenoidectomy Status post total right knee replacement Family History Unknown Aortic aneurysm Social History Smoking Status: Never smoker Second Hand Exposure: No; Do You Dip or Chew Tobacco: No; Hx Alcohol Use: No Hx Substance Use: No Preferred Language: [place]ankan Communication Ability: Effective Visual Impairment: Partially Limited Cook Restaurant Required: No Beliefs That Will Affect Care: None marital status: / Current Living Situation: Personal Care Facility Current Living Situation Comment: the [facility] current occupational status: retired How many Children do You have: 2 Feels Safe at Home: Yes Assistive Devices: None Allergies Allergies Allergy/AdvReac Type Severity Reaction Status Date / Time NSAIDS (Non-Steroidal Allergy Severe RENAL Verified 05/09/23 08:12 Anti-Inflamma FAILURE adhesive Allergy Mild RASH Verified 05/09/23 08:12 latex Allergy Mild RASH Verified 05/09/23 08:12 procaine Allergy Mild prolonged Verified 05/09/23 08:12 effect orange Allergy Verified 05/09/23 08:12 orange juice Allergy Verified 05/09/23 08:12 pepper (genus Capsicum) Allergy Verified 05/09/23 08:12 sesame seed Allergy Verified 05/09/23 08:12 amoxicillin AdvReac Intermediate Diarrhea Verified 05/09/23 08:12 Home Meds Home Medications Medication Instructions Recorded Confirmed calcium carbonate 500 mg-vitamin 1 tab PO QDL 12/18/19 05/10/23 D3 5 mcg (200 unit) tablet (Os-Glenn 500 + D3) cyanocobalamin (vitamin B-12) 500 1,000 mcg PO QDL 12/18/19 05/10/23 mcg tablet [id number]-[id number]-tfry 8 mg-folic 400 1 tab PO QDL 12/20/20 05/10/23 mcg-K 50 mcg-lutein 300 mcg tablet (Centrum Silver Women) clindamycin HCl 300 mg capsule 600 mg PO .COMPLEX 05/18/21 05/10/23 hemp cream 1 applic topical UD PRN Pain 11/19/22 05/10/23 alprazolam 0.25 mg tablet 0.25 mg PO DAILY 04/29/23 05/10/23 calcium glycerophosphate 65 mg 130 mg PO UD PRN when eating 04/29/23 05/10/23 tablet problem food cyclobenzaprine 5 mg tablet 5 mg PO TID PRN Muscle Spasm 04/29/23 05/10/23 levothyroxine 50 mcg tablet 50 mcg PO DAILYBB 04/29/23 05/10/23 loratadine 10 mg tablet (Claritin) 10 mg PO DAILY 04/29/23 05/10/23 melatonin 5 mg tablet 5 mg PO HS PRN Sleep 04/29/23 05/10/23 omega-3 fatty acids 1,000 mg 1,000 mg PO QDL 04/29/23 05/10/23 capsule [id number]-rpbiqzvh-bljcew tablet 1 tab PO DAILY 05/09/23 05/10/23 Previous Rx's Medication Instructions Recorded apixaban 5 mg tablet (Eliquis) 5 mg PO BID #60 tabs 05/02/23 metoprolol tartrate 100 mg tablet 100 mg PO BID #60 tabs 05/02/23 Results & Data (ED) Vital Signs Vital Signs - 24 hr 05/10/23 10:57 05/10/23 11:53 05/10/23 12:43 Temperature 36.8 C 36.8 C Temperature Source Temporal Artery Scan Oral Pulse Rate 127 H 117 H Pulse Rate [Left Finger] 131 H Pulse Rhythm [Left Finger] Regular Pulse Strength [Left Finger] Normal Respiratory Rate 18 19 Respiratory Effort / Characteristics SOB on Exertion Respiratory Depth Normal Respiratory Pattern Regular Blood Pressure 160/87 H Blood Pressure [Right Arm] 139/98 Blood Pressure Mean 111 Blood Pressure Mean [Right Arm] 111 Pulse Oximetry 97 91 Oxygen Delivery Method Room Air Room Air Sepsis Recent Fever Within 48 Hours No Sepsis New/Unexplained Change in Mental Status No Sepsis Action Taken by Nursing No Action Required 05/10/23 12:57 Temperature Temperature Source Pulse Rate Pulse Rate [Left Finger] 130 H Pulse Rhythm [Left Finger] Regular Pulse Strength [Left Finger] Normal Respiratory Rate 18 Respiratory Effort / Characteristics Non-Labored Spontaneous Respiratory Depth Normal Respiratory Pattern Blood Pressure Blood Pressure [Right Arm] 160/106 H Blood Pressure Mean Blood Pressure Mean [Right Arm] 124 Pulse Oximetry 94 Oxygen Delivery Method Room Air Sepsis Recent Fever Within 48 Hours Sepsis New/Unexplained Change in Mental Status Sepsis Action Taken by Nursing Laboratory Data 05/10/23 11:28 05/10/23 11:28 Lab Results 05/10/23 05/10/23 05/10/23 Range/Units 11:28 11:28 11:28 WBC 7.92 (4.8-10.8) K/ul RBC 3.82 L (4.20-5.40) M/uL Hgb 10.7 L (12.0-16.0) g/dl Hct 33.4 L (37.0-47.0) % MCV 87.4 (80.0-100.0) fL MCH 28.0 (25.0-34.0) pg MCHC 32.0 (32.0-36.0) g/dL RDW Std Deviation 47.8 H (36.4-46.3) fL RDW Coeff of Omar 15.0 H (11.5-14.5) % Plt Count 296 (130-400) K/uL MPV 10.5 (9.4-12.4) fL Immature Gran % (Auto) 0.6 % Neut % (Auto) 72.2 % Lymph % (Auto) 14.3 % [place] % (Auto) 7.6 % Eos % (Auto) 4.4 % Baso % (Auto) 0.9 % Neut # (Auto) 5.72 (1.40-6.50) K/uL Lymph # (Auto) 1.13 L (1.20-3.40) K/uL [place] # (Auto) 0.60 H (0.11-0.59) K/uL Eos # (Auto) 0.35 (0.00-0.50) K/uL Baso # (Auto) 0.07 (0.00-0.20) K/uL Immature Gran # (Auto) 0.05 (0.01-0.20) K/uL PT 12.3 H (9.0-12.0) Seconds INR 1.1 (0.9-1.1) APTT 29.6 (21.0-31.0) Seconds PTT Ratio 1.0 Sodium 139 (136-145) mmol/L Potassium 4.1 (3.5-5.1) mmol/L Chloride 108 H (98-107) mmol/L Carbon Dioxide 25 (21-32) mmol/L Anion Gap 6 (3-11) BUN 31 H (6-23) mg/dl Creatinine 1.05 (0.6-1.2) mg/dl Est Cr Clr Drug Dosing 39.7 ml/min Est GFR ( Amer) 56.5 ml/min Est GFR (Non-Af Amer) 48.7 ml/min BUN/Creatinine Ratio 29.5 H (10-20) Glucose 103 H (70-99(Fasting)) mg/dl Calcium 9.1 (8.6-10.3) mg/dl Total Bilirubin 0.6 (0.2-1.0) mg/dl AST 89 H (13-39) U/L ALT 186 H (7-52) U/L Alkaline Phosphatase 107 H (34-104) U/L Troponin I High Sens 16.8 H (0-14) pg/ml B-Natriuretic Peptide (0-100) pg/ml Total Protein 6.5 (6.0-8.3) gm/dl Albumin 4.2 (3.4-5.0) gm/dl Globulin 2.3 L (2.5-4.0) gm/dl Albumin/Globulin Ratio 1.8 (0.9-2) 05/10/ Range/Units 11:28 WBC (4.8-10.8) K/ul RBC (4.20-5.40) M/uL Hgb (12.0-16.0) g/dl Hct (37.0-47.0) % MCV (80.0-100.0) fL MCH (25.0-34.0) pg MCHC (32.0-36.0) g/dL RDW Std Deviation (36.4-46.3) fL RDW Coeff of Moar (11.5-14.5) % Plt Count (130-400) K/uL MPV (9.4-12.4) fL Immature Gran % (Auto) % Neut % (Auto) % Lymph % (Auto) % [place] % (Auto) % Eos % (Auto) % Baso % (Auto) % Neut # (Auto) (1.40-6.50) K/uL Lymph # (Auto) (1.20-3.40) K/uL [place] # (Auto) (0.11-0.59) K/uL Eos # (Auto) (0.00-0.50) K/uL Baso # (Auto) (0.00-0.20) K/uL Immature Gran # (Auto) (0.01-0.20) K/uL PT (9.0-12.0) Seconds INR (0.9-1.1) APTT (21.0-31.0) Seconds PTT Ratio Sodium (136-145) mmol/L Potassium (3.5-5.1) mmol/L Chloride (98-107) mmol/L Carbon Dioxide (21-32) mmol/L Anion Gap (3-11) BUN (6-23) mg/dl Creatinine (0.6-1.2) mg/dl Est Cr Clr Drug Dosing ml/min Est GFR ( Amer) ml/min Est GFR (Non-Af Amer) ml/min BUN/Creatinine Ratio (10-20) Glucose (70-99(Fasting)) mg/dl Calcium (8.6-10.3) mg/dl Total Bilirubin (0.2-1.0) mg/dl AST (13-39) U/L ALT (7-52) U/L Alkaline Phosphatase (34-104) U/L Troponin I High Sens (0-14) pg/ml B-Natriuretic Peptide 813 H (0-100) pg/ml Total Protein (6.0-8.3) gm/dl Albumin (3.4-5.0) gm/dl Globulin (2.5-4.0) gm/dl Albumin/Globulin Ratio (0.9-2) Administered Medications Diltiazem HCl 125 mg/ Dextrose 125 mls @ 10 mls/hr IV .[id number] [facility]; Protocol Stop: 06/09/23 11:44 Last Titration: 05/10/23 12:58 Dose: 10 mg/hr, 10 mls/hr Documented By: VALERIE Co-signed By: ALEJANDRINA Admin: 05/10/23 12:07 Dose: 5 mg/hr, 5 mls/hr Documented By: VALERIE Co-signed By: ALEJANDRINA Metoprolol Tartrate (Metoprolol Tartrate 100 Mg Tab) 100 mg PO QAM JORGE Stop: 06/09/23 12:59 Last Admin: 05/10/23 13:37 Dose: 100 mg Documented By: VALERIE Discontinued Medications Diltiazem HCl (Diltiazem Hcl 5 Mg/Ml 5 Ml Vial) 10 mg IV NOW STA Stop: 05/10/23 11:33 Last Admin: 05/10/23 11:59 Dose: 10 mg Documented By: VALERIE Co-signed By: ALEJANDRINA Miscellaneous (Stat Iv Infusion Titration Per Protocol) 1 each N/A NOW STA Stop: 05/10/23 11:33 Last Admin: 05/10/23 12:11 Dose: Not Given Documented By: VALERIE Imaging Data Radiologist's Impression: Chest X-Ray 05/10/23 11:02 XR chest 1V portable CLINICAL HISTORY: Chest pain, nonspecific. COMPARISON STUDY: Chest radiograph April 29, 2023. FINDINGS: Lung volumes are normal. Lungs are clear. There is no pneumothorax or pleural effusion. Cardiomegaly is unchanged. Mediastinal contours are normal. There is no evidence for pulmonary edema. IMPRESSION: No acute cardiopulmonary findings. Cardiomegaly. ACT 112: Negative or not required by law. Electronically signed by: Norm Tineo M.D. 05/10/2023 1:55 PM Discharge Plan Visit Data Chief Complaint: Cardiac Assessment Stated Complaint: REACTION TO MEDICATIONS ED Provider: Carmella Son Discharge Problem: Atrial fibrillation with rapid ventricular response, Transaminitis, Non-ST elevation NC (NSTEMI), Acute exacerbation of CHF (congestive heart failure), Elevated brain natriuretic peptide (BNP) level Forms Stand Alone Forms: My [facility] Prescriptions Prescriptions: No Action Centrum Silver Women 8 mg iron-400 mcg-300 mcg tablet 1 tab PO QDL cyanocobalamin (vitamin B-12) 500 mcg tablet 1,000 mcg PO QDL hemp cream 1 applic topical UD PRN (Reason: Pain) clindamycin HCl 300 mg capsule 600 mg PO .COMPLEX Rx Instructions: 600 mg PO before dental procedures calcium carbonate-vitamin D3 [Os-Glenn 500 + D3] 500 mg(1,250mg) -200 unit tablet 1 tab PO QDL cyclobenzaprine 5 mg tablet 5 mg PO TID PRN (Reason: Muscle Spasm) levothyroxine 50 mcg tablet 50 mcg PO DAILYBB alprazolam 0.25 mg Tablet 0.25 mg PO DAILY omega-3 fatty acids 1,000 mg Capsule 1,000 mg PO QDL melatonin 5 mg Tablet 5 mg PO HS PRN (Reason: Sleep) loratadine [Claritin] 10 mg Tablet 10 mg PO DAILY calcium glycerophosphate 65 mg Tablet 130 mg PO UD PRN (Reason: when eating problem food) Rx Instructions: per pt Eliquis 5 mg Tablet 5 mg PO BID Qty: 60 0RF metoprolol tartrate 100 mg Tablet 100 mg PO BID Qty: 60 0RF [id number]-[id number] Tablet 1 tab PO DAILY Referrals Referrals: Aiden Gilbert MD [Physician] -
[2023-05-10] MEDS ORDERED: dilTIAZem HCL 125 MG in DEXTROSE 5% 100 ML IV SCH (11:45)
[2023-05-10 12:00] LABS: Basophils # (auto) 0.07 K/uL (0.00-0.20); Basophils % (auto) 0.9 %; Eosinophils # (auto) 0.35 K/uL (0.00-0.50); Eosinophils % (auto) 4.4 %; Hematocrit (blood only) 33.4 % (37.0-47.0); Hemoglobin 10.7 g/dl (12.0-16.0); Immature Granulocytes # (auto) 0.05 K/uL (0.01-0.20); Immature Granulocytes % (auto) 0.6 %; Lymphocytes # (auto) 1.13 K/uL (1.20-3.40); Lymphocytes % (auto) 14.3 %; Mean Corpuscular Volume 87.4 fL (80.0-100.0); Mean Platelet Volume 10.5 fL (9.4-12.4); Monocytes % (auto) 7.6 %; Neutrophils # (auto) 5.72 K/uL (1.40-6.50); Neutrophils % (auto) 72.2 %; Platelet Count 296 K/uL (130-400); RDW Standard Deviation 47.8 fL (36.4-46.3); Red Blood Count 3.82 M/uL (4.20-5.40); White Blood Count 7.92 K/ul (4.8-10.8)
[2023-05-10 12:14] LABS: Albumin Globulin Ratio 1.8 (0.9-2); Albumin Level 4.2 gm/dl (3.4-5.0); BUN Creatinine Ratio 29.5 (10-20); Bilirubin,Total 0.6 mg/dl (0.2-1.0); Calcium 9.1 mg/dl (8.6-10.3); Creatinine Clr Calc Pharmacy 39.7 ml/min; Est GFR (African American) 56.5 ml/min; Est GFR (Non-African American) 48.7 ml/min; Globulin 2.3 gm/dl (2.5-4.0); Potassium 4.1 mmol/L (3.5-5.1); Total Protein 6.5 gm/dl (6.0-8.3)
[2023-05-10 12:21] LABS: Troponin I High Sensitivity 16.8 pg/ml (0-14)
[2023-05-10 12:27] LABS: INR 1.1 (0.9-1.1); Partial Thromboplastin Time 29.6 Seconds (21.0-31.0); Prothrombin Time 12.3 Seconds (9.0-12.0)
[2023-05-10] MEDS ORDERED: METOPROLOL TARTRATE 100 MG TAB PO SCH (13:00)
--- NOTE | 2023-05-10 13:35 | History & Physical Report ---
Date of Service May 10, 2023 Assessment & Plan (1) Atrial fibrillation with rapid ventricular response: Plan: Recently diagnosed during hospitalization 04/29 with new onset A-fib Was discharged on diltiazem 300 CD +100 twice daily for rate control, and Eliquis 5 twice daily for stroke prophylaxis. She has been compliant with these medications Patient reports at least 5 days of worsening dyspnea on exertion, orthopnea, and lower extremity swelling in addition to 10 pounds of weight gain. Lungs are diminished, chest x-ray without evidence of volume overload, BNP is elevated ? Rate related cardiomyopathy/CHF. Chest x-ray does not show overt pulmonary edema or evidence of pleural effusions. Echo is pending She had 2 office visits this past week and while hemodynamically stable and slightly fatigued, was tachycardic. Poor rate control with outpatient regimen Placed on Cardizem drip in ER for acute rate control. Patient did take her Cardizem 300 mg CD morning of 05/10, did not take 11:00 dose of metoprolol. This was given in the ER at 1:30 PM. General rate remains [id number] -Patient with mild transaminitis, suspect poor flow in the setting of sustained RVR. Amiodarone deferred. - Reduced EF on echo, cardizem gtt d/nito. dig load ordered. 250mcg now, then q6h x4 total doses for load. + dig level in the am. No chest pain or signs of ACS, ST depressions and trace troponin elevation of 16 are present likely from demand ischemia BNP is elevated 800, DDx includes CHF versus direct rate related elevated (2) Acute HFrEF (heart failure with reduced ejection fraction): Plan: ? Fatigue with RVR versus related CHF; treatment and evaluation as above Discussed cardiology. Echo preliminary read with acute interval decrease in EF from previous normal now 4045% - Dry weight appears approximately 76-78 kg. Admitting weight 82 kg. Strict I&O. Patient has had 10 pound weight gain in the last week Suspect acute rate related CHF (3) Dyspnea: (4) Hypertension: Plan: Diltiazem/metoprolol as noted. Currently pursuing rate control as above, BP adequate and missing his (5) Hypothyroidism: Plan: Continue Synthroid, TSH 04/2023 was normal (6) GERD (gastroesophageal reflux disease): Plan: No GI symptoms. No acute pharmacologic intervention indicated at this Plan DVT PPx: Eliquis CODE: Full Dispo: PCU Diet: HH History of Present Illness Primary Care Provider: Eran at [facility] Kari is an 82-year-old female with a past medical history of A-fib with RVR on diltiazem/metoprolol/Eliquis, hypertension, hypothyroidism, anxiety, renal angiomyolipoma, osteoarthritis, depression/anxiety who recently was admitted from 04/29/2023 - 05/02/2023 for new onset A-fib with RVR who presents with shortness of breath, orthopnea, leg swelling, fatigue, and RVR suggestive of rate related heart failure. She has not had chest pain at any point. Kari seen at the bedside. She reports that she has been taking her medications as prescribed since discharge reliably and has missed no doses of medications. She takes metoprolol 100 mg at 11 AM and at bedtime, and [id number] mg extended release 24-hour every morning. She reports she took her Synthroid, and the diltiazem 300 mg capsule this morning, but came to the hospital prior to taking her 11 AM dose of metoprolol. She reports that she has taken her Eliquis as directed including this morning, and has not missed doses of this. She reports that she has had progressive leg swelling, shortness of breath, shortness of breath while laying flat which has been most noticeable and progressive since Saturday, approximately 5 days ago she has had some increased arthritis pain and notes she was seen on the by her PCP. She notes that she had some lumbar pain and she was prescribed prednisone for this, edema was suspected to be due to diltiazem was recommended to see cardiology and elevate her legs in the meantime on follow-up to rheumatology 05/09 she was noted to have a rapid heart irregular heart rate with normal blood pressure.She denies chest pain at any point in the last 2 weeks, and reports she is pain-free at time of assessment. She is not short of breath sitting up in bed , SPO2 94% on room air. She does not normally use oxygen at home. She endorses 10 pounds of weight gain in the last week Kari is leaving for [place] to be with family where she will stay through the spring, she is scheduled to leave May 30. She reports her #1 goal is to make that flight with her granddaughters who will be traveling with her to help care for her. She reports she would like to see Dr. Koch and follow-up with cardiology prior to that visit, and then will establish with cardiology and has a PCP in [place] who she will see subsequently Medical History: Reviewed Medications: Reviewed Surgical History: Reviewed Family history: Reviewed Allergies: Reviewed Social History: Reviewd Code Status:Full Allergies Allergy/AdvReac Type Severity Reaction Status Date / Time NSAIDS (Non-Steroidal Allergy Severe RENAL Verified 05/09/23 08:12 Anti-Inflamma FAILURE adhesive Allergy Mild RASH Verified 05/09/23 08:12 latex Allergy Mild RASH Verified 05/09/23 08:12 procaine Allergy Mild prolonged Verified 05/09/23 08:12 effect orange Allergy Verified 05/09/23 08:12 orange juice Allergy Verified 05/09/23 08:12 pepper (genus Capsicum) Allergy Verified 05/09/23 08:12 sesame seed Allergy Verified 05/09/23 08:12 amoxicillin AdvReac Intermediate Diarrhea Verified 05/09/23 08:12 Home Medications Medication Instructions Recorded Confirmed Type calcium carbonate 500 mg-vitamin 1 tab PO QDL 12/18/19 05/10/23 History D3 5 mcg (200 unit) tablet (Os-Glenn 500 + D3) cyanocobalamin (vitamin B-12) 500 1,000 mcg PO QDL 12/18/19 05/10/23 History mcg tablet isdckkcu-cytu-owtz 8 mg-folic 400 1 tab PO QDL 12/20/20 05/10/23 History mcg-K 50 mcg-lutein 300 mcg tablet (Centrum Silver Women) clindamycin HCl 300 mg capsule 600 mg PO .COMPLEX 05/18/21 05/10/23 History hemp cream 1 applic topical UD PRN Pain 11/19/22 05/10/23 History alprazolam 0.25 mg tablet 0.25 mg PO DAILY 04/29/23 05/10/23 History calcium glycerophosphate 65 mg 130 mg PO UD PRN when eating 04/29/23 05/10/23 History tablet problem food cyclobenzaprine 5 mg tablet 5 mg PO TID PRN Muscle Spasm 04/29/23 05/10/23 History levothyroxine 50 mcg tablet 50 mcg PO DAILYBB 04/29/23 05/10/23 History loratadine 10 mg tablet (Claritin) 10 mg PO DAILY 04/29/23 05/10/23 History melatonin 5 mg tablet 5 mg PO HS PRN Sleep 04/29/23 05/10/23 History omega-3 fatty acids 1,000 mg 1,000 mg PO QDL 04/29/23 05/10/23 History capsule apixaban 5 mg tablet (Eliquis) 5 mg PO BID #60 tabs 05/02/23 05/10/23 Rx metoprolol tartrate 100 mg tablet 100 mg PO BID #60 tabs 05/02/23 05/10/23 Rx fczbrjknuysw-hqfdebon-xcskzf tablet 1 tab PO DAILY 05/09/23 05/10/23 History Saccharomyces boulardii 50 mg 50 mg PO TIDWMEAL 05/10/23 05/10/23 History capsule diltiazem HCl 300 mg 300 mg PO QAM 05/10/23 05/10/23 History capsule,extended release 24 hr exemestane 25 mg tablet 25 mg PO . WITH LUNCH 05/10/23 05/10/23 History famotidine 40 mg tablet 40 mg PO DAILY 05/10/23 05/10/23 History famotidine 40 mg tablet 40 mg PO DAILY PRN Heartburn 05/10/23 05/10/23 History fluoxetine 10 mg capsule 10 mg PO DAILY 05/10/23 05/10/23 History fluoxetine 20 mg capsule 20 mg PO DAILY 05/10/23 05/10/23 History fluticasone propionate 50 2 spray intranasal DAILY 05/10/23 05/10/23 History mcg/actuation nasal spray,suspension ltvcnuptysj-tpu-jhxsqdzzm-vitC 1 cap PO . WITH LUNCH 05/10/23 05/10/23 History capsule (Glucosamine Complex-MSM capsule) prednisone 5 mg tablet 5 mg PO DIRECTED 05/10/23 05/10/23 History simvastatin 20 mg tablet 20 mg PO QPM 05/10/23 05/10/23 History tramadol 50 mg tablet 50 mg PO Q6H PRN Pain 05/10/23 05/10/23 History vitamins A,C,L-vmdb-wwihyh 4,296 1 cap PO BID 05/10/23 05/10/23 History mcg-226 mg-90 mg capsule (PreserVision AREDS) Past Med/Surg History Medical History Abnormal ECG Acute blood loss anemia Acute GI bleeding Atrial fibrillation with rapid ventricular response Duodenal ulcer GERD (gastroesophageal reflux disease) Well controlled and stable GI bleeding History of breast cancer Dx 2017; h/o lumpectomy + radiation No current issues Hypertension Hypothyroidism Laceration of right lower leg S/p laceration to right distal LE- 15 stitches (since removed) Dr. Rodriguez aware Lumbar radiculopathy, right LVH (left ventricular hypertrophy) follows with Dr. Koch Nausea and vomiting Osteoarthritis Overactive bladder Trochanteric bursitis of right hip Troponin I above reference range Surgical History History of breast biopsy History of cholecystectomy History of colonoscopy History of left knee replacement History of lumpectomy of left breast (02/22/17) Left partial mastectomy with SLNB 02/22/17 Dr. 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 NAD. Cooperative. HEENT: Atraumatic, normocephalic. Vision/hearing intact Pulm: CTAB A&P. -wheezes, -rales, -rhonchi. Symmetrical chest rise. No increased work of breathing. No respiratory distress. Cardiac: irir, +sm, -rg. Radial pulses intact and symmetrical. Abdominal: Nontender, nondistended, soft. BS present. Ext: warm, dry. 2+ pitting edema bilaterally Results & Data Results & Data Vital Signs (Past 12 Hours) Vital Signs Temp Pulse Pulse Resp BP BP Pulse Ox 05/10/23 12:57 130 H 18 160/106 H 94 05/10/23 12:43 117 H 05/10/23 11:53 36.8 C 131 H 19 139/98 91 05/10/23 10:57 36.8 C 127 H 18 160/87 H 97 O2 Del Method 05/10/23 12:57 Room Air 05/10/23 12:43 05/10/23 11:53 Room Air 05/10/23 10:57 Room Air PG Care Time/CCT Total # of Minutes Spent Total Time Spent with Patient: Total time spent is greater than 50% in coordination of care (as documented) at patient's floor/unit and/or counseling patient: Coding Level of Care Code 43339 INT INP/OBS CARE 3/75MIN Diagnoses Atrial fibrillation with rapid ventricular response I48.91 Acute HFrEF (heart failure with reduced ejection fraction) I50.21 Dyspnea R06.00 Hypertension I10 Hypothyroidism E03.9 GERD (gastroesophageal reflux disease) K21.9
--- NOTE | 2023-05-10 13:56 | XRay Report ---
XR chest 1V portable CLINICAL HISTORY: Chest pain, nonspecific. COMPARISON STUDY: Chest radiograph April 29, 2023. FINDINGS: Lung volumes are normal. Lungs are clear. There is no pneumothorax or pleural effusion. Car diomegaly is unchanged. Mediastinal contours are normal. There is no evidence for pulmonary edema. IMPRESSION: No acute cardiopulmonary findings. Cardiomegaly. ACT 112: Negative or not required by law. Electronically signed by: Norm Tineo M.D. 05/10/2023 1:55 PM
[2023-05-10 14:46] LABS: Magnesium 2.4 mg/dl (1.7-2.4)
[2023-05-10] MEDS ORDERED: POLYETHYLENE (MIRALAX) 17 GM PACK PO PRN (16:48)
[2023-05-10] MEDS ORDERED: ACETAMINOPHEN 325 MG TAB PO PRN (16:48)
[2023-05-10] MEDS ORDERED: CYCLOBENZAPRINE HCL 5 MG TAB PO PRN (16:48)
[2023-05-10] MEDS ORDERED: MELATONIN 3 MG TAB PO PRN (16:52)
--- NOTE | 2023-05-10 17:25 | XCELERA ---
[id number]
[2023-05-10] MEDS ORDERED: FUROSEMIDE 40 MG/4 ML VIAL IV ONE ×3 (18:04→18:30)
--- NOTE | 2023-05-10 18:04 | Cardiology Consultation ---
Date of Consultation May 10, 2023 Assessment & Plan (1) Atrial fibrillation with rapid ventricular response: (2) Heart failure with mid-range ejection fraction: (3) Pulmonary hypertension: (4) Elevated troponin: (5) Hypertension: Plan ASSESSMENT/PLAN: 1. Atrial fibrillation with rapid ventricular response: Likely contributing to her heart failure. Stop diltiazem drip. Continue beta-shine. Will give IV digoxin. Received digoxin last week. Will order level now before IV dose given. Continue anticoagulation for stroke risk reduction. If not easily controlled, would consider transesophageal echo and cardioversion on Saturday, especially in light of heart failure. 2. Heart failure with midrange EF: LV systolic function appears to have declined, likely related to A-fib. We will give Lasix IV now. Strict I's and O's. Low-sodium diet, less than 2000 mg daily. Daily weights. Try to maintain net negative fluid balance. Discontinue diltiazem. On discharge, can convert metoprolol to tartrate to metoprolol succinate. After some diuresis today, consider Entresto and SGLT2 inhibitor at some point. Heart failure program referral. 3. Elevated troponin: High-sensitivity troponin only slightly elevated and was more elevated last week. Likely due to A-fib with RVR and heart failure (demand ischemia). No angina. Did not present with acute coronary syndrome. 4. Hypertension: Blood pressure mostly mildly hypertensive. Diurese as above. Other heart failure medications as noted. 5. Pulmonary hypertension: Likely related to hypervolemic state. Diuresis as above. 6. Disposition: Dr. Torres will be on-call through the weekend. Please call with questions or concerns. He will follow along. On discharge, follow-up with Dr. Koch, her primary central service tech. Plan of care communicated with Dr. Ruiz of the hospitalist service. Highly complex medical issues. Thank you for allowing me to participate in the care of your patient. Please call for any other questions or concerns. Sincerely, Jose Juan Ramirez M.D. History of Present Illness Reason for Consultation: Atrial fibrillation with RVR Requesting Physician: Roosevelt Ruiz MD Attending Physician: Roosevelt Ruiz MD History of Present Illness Mrs. Nelson is a very pleasant 82-year-old female with a history significant for atrial fibrillation (diagnosed April 2023), breast cancer s/p XRT, and hypertension. Listed in her chart is also GI bleeding but she has no recollection of this. Her primary central service tech is Dr. Koch. She was admitted on 05/10/2023 with shortness of breath, and swelling in her lower extremities. She was noted to be in A-fib with RVR and admitted to the hospitalist service. She had just been discharged on 05/02/2023 for newly diagnosed A-fib with RVR and was discharged on diltiazem 300 mg daily, metoprolol 100 mg twice daily, and Eliquis 5 mg twice daily. She admits that for the past 5 days, she has had increased edema and shortness of breath. This progressed throughout the week to the point where she had orthopnea and had to prop her head up to sleep at night. Last night, orthopnea was much more progressed and she tried to sleep in a recliner. She does not maintain a low-sodium diet and on occasion eats Pringles and other foods high in sodium content. She admits that she has skipped some doses of Eliquis and diltiazem due to swelling. She believes that she was told not to take those medications if she noted lower extremity swelling. The only medication she took this morning before presentation was her levothyroxine. She denies melena, hematochezia, hematuria, syncope, near syncope, chest pain, p alpitations. She had 2 episodes of diarrhea this morning but it has since resolved. Review of systems: As above. Review of systems otherwise negative/unremarkable. Family history: Noncontributory. Social history: She denies tobacco, alcohol, drug abuse. She is a . She has 2 daughters who live in [place]. She spends half the year in [place] and plans on leaving in May 2023. She otherwise resides at the [facility]. She was unaccompanied in her hospital room. Allergies Allergy/AdvReac Type Severity Reaction Status Date / Time NSAIDS (Non-Steroidal Allergy Severe RENAL Verified 05/09/23 08:12 Anti-Inflamma FAILURE adhesive Allergy Mild RASH Verified 05/09/23 08:12 latex Allergy Mild RASH Verified 05/09/23 08:12 procaine Allergy Mild prolonged Verified 05/09/23 08:12 effect orange Allergy Verified 05/09/23 08:12 orange juice Allergy Verified 05/09/23 08:12 pepper (genus Capsicum) Allergy Verified 05/09/23 08:12 sesame seed Allergy Verified 05/09/23 08:12 amoxicillin AdvReac Intermediate Diarrhea Verified 05/09/23 08:12 Home Medications Medication Instructions Recorded Confirmed Type calcium carbonate 500 mg-vitamin 1 tab PO QDL 12/18/19 05/10/23 History D3 5 mcg (200 unit) tablet (Os-Glenn 500 + D3) cyanocobalamin (vitamin B-12) 500 1,000 mcg PO QDL 12/18/19 05/10/23 History mcg tablet qgqayjku-jgnb-xmhy 8 mg-folic 400 1 tab PO QDL 12/20/20 05/10/23 History mcg-K 50 mcg-lutein 300 mcg tablet (Centrum [place] Women) clindamycin HCl 300 mg capsule 600 mg PO .COMPLEX 05/18/21 05/10/23 History hemp cream 1 applic topical UD PRN Pain 11/19/22 05/10/23 History alprazolam 0.25 mg tablet 0.25 mg PO DAILY 04/29/23 05/10/23 History calcium glycerophosphate 65 mg 130 mg PO UD PRN when eating 04/29/23 05/10/23 History tablet problem food cyclobenzaprine 5 mg tablet 5 mg PO TID PRN Muscle Spasm 04/29/23 05/10/23 History levothyroxine 50 mcg tablet 50 mcg PO DAILYBB 04/29/23 05/10/23 History loratadine 10 mg tablet (Claritin) 10 mg PO DAILY 04/29/23 05/10/23 History melatonin 5 mg tablet 5 mg PO HS PRN Sleep 04/29/23 05/10/23 History omega-3 fatty acids 1,000 mg 1,000 mg PO QDL 04/29/23 05/10/23 History capsule apixaban 5 mg tablet (Eliquis) 5 mg PO BID #60 tabs 05/02/23 05/10/23 Rx metoprolol tartrate 100 mg tablet 100 mg PO BID #60 tabs 05/02/23 05/10/23 Rx wgtbckpikvxs-vlprusbm-haamcg tablet 1 tab PO DAILY 05/09/23 05/10/23 History Saccharomyces boulardii 50 mg 50 mg PO TIDWMEAL 05/10/23 05/10/23 History capsule diltiazem HCl 300 mg 300 mg PO QAM 05/10/23 05/10/23 History capsule,extended release 24 hr exemestane 25 mg tablet 25 mg PO . WITH LUNCH 05/10/23 05/10/23 History famotidine 40 mg tablet 40 mg PO DAILY 05/10/23 05/10/23 History famotidine 40 mg tablet 40 mg PO DAILY PRN Heartburn 05/10/23 05/10/23 History fluoxetine 10 mg capsule 10 mg PO DAILY 05/10/23 05/10/23 History fluoxetine 20 mg capsule 20 mg PO DAILY 05/10/23 05/10/23 History fluticasone propionate 50 2 spray intranasal DAILY 05/10/23 05/10/23 History mcg/actuation nasal spray,suspension yrnmodgwkuy-hlt-vwtqfvsxr-vitC 1 cap PO . WITH LUNCH 05/10/23 05/10/23 History capsule (Glucosamine Complex-MSM capsule) prednisone 5 mg tablet 5 mg PO DIRECTED 05/10/23 05/10/23 History simvastatin 20 mg tablet 20 mg PO QPM 05/10/23 05/10/23 History tramadol 50 mg tablet 50 mg PO Q6H PRN Pain 05/10/23 05/10/23 History vitamins A,C,B-vnad-glnwha 4,296 1 cap PO BID 05/10/23 05/10/23 History mcg-226 mg-90 mg capsule (PreserVision AREDS) Patient History Medical History Abnormal ECG Acute blood loss anemia Acute GI bleeding Atrial fibrillation with rapid ventricular response Duodenal ulcer GERD (gastroesophageal reflux disease) Well controlled and stable GI bleeding History of breast cancer Dx 2016; h/o lumpectomy + radiation No current issues Hypertension Hypothyroidism Laceration of right lower leg S/p laceration to right distal LE- 15 stitches (since removed) Dr. Rodriguez aware Lumbar radiculopathy, right LVH (left ventricular hypertrophy) follows with Dr. Koch Nausea and vomiting Osteoarthritis Overactive bladder Trochanteric bursitis of right hip Troponin I above reference range Surgical History History of breast biopsy History of cholecystectomy History of colonoscopy History of left knee replacement History of lumpectomy of left breast (02/22/17) Left partial mastectomy with SLNB 02/22/17 Dr. 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 Alert and oriented. HEENT: Anicteric sclera. Neck: No appreciable JVD. No bruits. Normal carotid upstrokes bilaterally. Cardiac: No ventricular heave. Irregularly irregular. Tachycardic. Normal S1-S2. No murmurs, rubs, or gallops. Pulmonary: Clear to auscultation bilaterally without wheezes, rales, or rhonchi. Abdomen: Soft, nontender, nondistended, with normoactive bowel sounds. No bruits noted. Extremities: 2+ radial pulses bilaterally. 2+ posterior tibialis pulses bilaterally. 1+ right lower extremity edema. Trace left lower extremity edema. Bilateral lower extremity varicose veins. No cyanosis. Psychiatric: Affect appears appropriate. Results & Data Vital Signs (Past 12 Hours) Vital Signs Temp Pulse Pulse Resp BP BP Pulse Ox 05/10/23 16:49 36.6 C 112 H 18 136/95 97 05/10/23 16:04 112 H 19 133/97 97 05/10/23 14:54 110 H 19 124/100 97 05/10/23 12:57 130 H 18 160/106 H 94 05/10/23 12:43 117 H 05/10/23 11:53 36.8 C 131 H 19 139/98 91 05/10/23 10:57 36.8 C 127 H 18 160/87 H 97 O2 Del Method 05/10/23 16:49 Room Air 05/10/23 16:04 Room Air 05/10/23 14:54 Room Air 05/10/23 12:57 Room Air 05/10/23 12:43 05/10/23 11:53 Room Air 05/10/23 10:57 Room Air Laboratory Results Laboratory Results - last 24 hr 05/10/23 05/10/23 05/10/23 11:28 11:28 11:28 WBC 7.92 RBC 3.82 L Hgb 10.7 L Hct 33.4 L MCV 87.4 MCH 28.0 MCHC 32.0 RDW Std Deviation 47.8 H RDW Coeff of Omar 15.0 H Plt Count 296 MPV 10.5 Immature Gran % (Auto) 0.6 Neut % (Auto) 72.2 Lymph % (Auto) 14.3 [place] % (Auto) 7.6 Eos % (Auto) 4.4 Baso % (Auto) 0.9 Neut # (Auto) 5.72 Lymph # (Auto) 1.13 L [place] # (Auto) 0.60 H Eos # (Auto) 0.35 Baso # (Auto) 0.07 Immature Gran # (Auto) 0.05 PT 12.3 H INR 1.1 APTT 29.6 PTT Ratio 1.0 Sodium 139 Potassium 4.1 Chloride 108 H Carbon Dioxide 25 Anion Gap 6 BUN 31 H Creatinine 1.05 Est Cr Clr Drug Dosing 39.7 Est GFR ( Amer) 56.5 Est GFR (Non-Af Amer) 48.7 BUN/Creatinine Ratio 29.5 H Glucose 103 H Calcium 9.1 Magnesium 2.4 Total Bilirubin 0.6 AST 89 H ALT 186 H Alkaline Phosphatase 107 H Troponin I High Sens 16.8 H B-Natriuretic Peptide Total Protein 6.5 Albumin 4.2 Globulin 2.3 L Albumin/Globulin Ratio 1.8 05/10/23 11:28 WBC RBC Hgb Hct MCV MCH MCHC RDW Std Deviation RDW Coeff of Omar Plt Count MPV Immature Gran % (Auto) Neut % (Auto) Lymph % (Auto) [place] % (Auto) Eos % (Auto) Baso % (Auto) Neut # (Auto) Lymph # (Auto) [place] # (Auto) Eos # (Auto) Baso # (Auto) Immature Gran # (Auto) PT INR APTT PTT Ratio Sodium Potassium Chloride Carbon Dioxide Anion Gap BUN Creatinine Est Cr Clr Drug Dosing Est GFR ( Amer) Est GFR (Non-Af Amer) BUN/Creatinine Ratio Glucose Calcium Magnesium Total Bilirubin AST ALT Alkaline Phosphatase Troponin I High Sens B-Natriuretic Peptide 813 H Total Protein Albumin Globulin Albumin/Globulin Ratio Diagnostic Findings Telemetry personally reviewed: A-fib with RVR. Echo 05/10/2023: Limited echo. EF 40 to 45%. Global hypokinesis. Severe left atrial dilation. RVSP 44. ECG personally reviewed 05/10/2023 11:27 AM: A-fib RVR [address]/T wave abnormality. Discharge summary from 05/02/2023 reviewed. Chest x-ray 05/10/2023: No acute cardiopulmonary findings per radiology. Medications Administered Current Inpatient Medications Acetaminophen (Acetaminophen 325 Mg Tab) 650 mg PO Q4H PRN PRN Reason: Pain or Fever Stop: 06/09/23 16:47 Alprazolam (Alprazolam 0.25 Mg Tablet) 0.25 mg PO DAILY [facility] Stop: 06/10/23 08:59 Apixaban (Apixaban 5 Mg Tablet) 5 mg PO BID [facility] Stop: 06/09/23 20:59 Calcium/Vitamin D (Calcium 600mg + Vit D 400 Iu Tab) 1 tab PO QDL [facility] Stop: 06/10/23 11:29 Cyanocobalamin (Cyanocobalamin (B-12) 500 Mcg Tablet) 1,000 mcg PO QDL [facility] Stop: 06/10/23 11:29 Cyclobenzaprine HCl (Cyclobenzaprine Hcl 5 Mg Tab) 5 mg PO TID PRN PRN Reason: Muscle Spasm Stop: 06/09/23 16:47 Diltiazem HCl 125 mg/ Dextrose 125 mls @ 10 mls/hr IV .[id number] [facility]; Protocol Stop: 06/09/23 11:44 Last Titration: 05/10/23 12:58 Dose: 10 mg/hr, 10 mls/hr Levothyroxine Sodium (Levothyroxine Sodium 50 Mcg Tablet) 50 mcg PO DAILYBB [facility] Stop: 06/10/23 06:29 Loratadine (Loratadine 10 Mg Tab) 10 mg PO DAILY [facility] Stop: 06/10/23 08:59 Melatonin (Melatonin 3 Mg Tab) 9 mg PO HS PRN PRN Reason: Sleep Stop: 06/09/23 16:51 Metoprolol Tartrate (Metoprolol Tartrate 100 Mg Tab) 100 mg PO BID [facility] Stop: 06/09/23 20:59 Multivitamins/Minerals (Cerovite Adv Formula Tab) 1 tab PO DAILY [facility] Stop: 06/10/23 08:59 Polyethylene Glycol (Polyethylene (Miralax) 17 Gm Pack) 17 gm PO DAILY PRN PRN Reason: Constipation Stop: 06/09/23 16:47 PG Care Time/CCT Total # of Minutes Spent Total Time Spent with Patient: Total time spent is greater than 50% in coordination of care (as documented) at patient's floor/unit and/or counseling patient: Coding Level of Care Code 73098 INT INP/OBS CARE 3/75MIN Diagnoses Atrial fibrillation with rapid ventricular response I48.91 Heart failure with mid-range ejection fraction I50.22 Pulmonary hypertension I27.20 Elevated troponin R79.89 Hypertension I10
[2023-05-10] MEDS ORDERED: DIGOXIN IV SCH ×2 (18:15→18:30)
[2023-05-10] MEDS ORDERED: DIGOXIN 250 MCG in SYRINGE 9 ML IV SCH (18:15)
[2023-05-10] MEDS: DIGOXIN 250 MCG in SYRINGE 9 ML IV SCH (18:36)
[2023-05-10] MEDS: METOPROLOL TARTRATE 100 MG TAB PO SCH (21:19)
[2023-05-10] MEDS: APIXABAN 5 MG TABLET PO SCH (21:19)
--- NOTE | 2023-05-10 23:30 | Electrocardiogram Report ---
Test Reason : Blood Pressure : / mmHG Vent. Rate : 134 BPM Atrial Rate : 000 BPM P-R Int : 000 ms QRS Dur : 082 ms QT Int : 304 ms P-R-T Axes : 000 -08 177 degrees QTc Int : 454 ms Atrial fibrillation with rapid ventricular response Abnormal ECG When compared with ECG of 29-APR-2023 15:32, No significant change was found Confirmed by Noman Ramirez ([id number]) on 05/10/2023 11:29:56 PM Referred By: Confirmed By:Noman Ramirez
[2023-05-11] MEDS ORDERED: DIGOXIN 250 MCG in SYRINGE 9 ML IV ONE
[2023-05-11] MEDS: DIGOXIN 250 MCG in SYRINGE 9 ML IV SCH (02:07)
[2023-05-11 06:18] LABS: Basophils # (auto) 0.05 K/uL (0.00-0.20); Basophils % (auto) 0.6 %; Eosinophils # (auto) 0.44 K/uL (0.00-0.50); Eosinophils % (auto) 5.7 %; Hematocrit (blood only) 35.4 % (37.0-47.0); Hemoglobin 11.5 g/dl (12.0-16.0); Immature Granulocytes # (auto) 0.06 K/uL (0.01-0.20); Immature Granulocytes % (auto) 0.8 %; Lymphocytes # (auto) 1.11 K/uL (1.20-3.40); Lymphocytes % (auto) 14.4 %; Mean Corpuscular Hgb Conc 32.5 g/dL (32.0-36.0); Mean Corpuscular Volume 86.1 fL (80.0-100.0); Mean Platelet Volume 10.2 fL (9.4-12.4); Monocytes % (auto) 7.8 %; Neutrophils # (auto) 5.45 K/uL (1.40-6.50); Neutrophils % (auto) 70.7 %; Platelet Count 270 K/uL (130-400); RDW Coefficient of Variation 14.8 % (11.5-14.5); RDW Standard Deviation 46.1 fL (36.4-46.3); Red Blood Count 4.11 M/uL (4.20-5.40); White Blood Count 7.71 K/ul (4.8-10.8)
[2023-05-11] MEDS: LEVOTHYROXINE SODIUM 50 MCG TABLET PO SCH (06:39)
[2023-05-11 06:46] LABS: BUN Creatinine Ratio 24.8 (10-20); Calcium 9.3 mg/dl (8.6-10.3); Creatinine Clr Calc Pharmacy 38.6 ml/min; Est GFR (African American) 56.5 ml/min; Est GFR (Non-African American) 48.7 ml/min; Potassium 3.6 mmol/L (3.5-5.1)
--- NOTE | 2023-05-11 07:21 | Hospitalist Progress Note ---
Date of Service May 11, 2023 Assessment & Plan (1) Atrial fibrillation with rapid ventricular response: Plan: - Recently diagnosed during hospitalization 04/29 with new onset A-fib - Was discharged on diltiazem 300 CD +100 twice daily for rate control, and Lizzette almas 5 twice daily for stroke prophylaxis. She has been compliant with these medications - Patient reports at least 5 days of worsening dyspnea on exertion, orthopnea, and lower extremity swelling in addition to 10 pounds of weight gain. Lungs are diminished, chest x-ray without evidence of volume overload, BNP is elevated - Chest x-ray does not show overt pulmonary edema or evidence of pleural effusions. - She had 2 office visits this past week and while hemodynamically stable and slightly fatigued, was tachycardic. Poor rate control with outpatient regimen - Placed on Cardizem drip in ER for acute rate control. - Patient with mild transaminitis, suspect poor flow in the setting of sustained RVR. Amiodarone deferred. - Reduced EF on echo, cardizem gtt d/nito. dig load ordered. 250mcg now, then q6h x4 total doses for load. + dig level in the am. - No chest pain or signs of ACS, ST depressions and trace troponin elevation of 16 are present likely from demand ischemia - BNP is elevated 800, DDx includes CHF versus direct rate related elevated -Patient continues have elevated heart rate. Will start on diltiazem 30 mg every 6 hours and will give a dose of digoxin 0.125 mg this afternoon. We will continue to monitor. -Cardiology states that patient may need to be cardioverted which would happen on Saturday. May also need ULI prior to this. (2) Acute HFrEF (heart failure with reduced ejection fraction): Plan: - Echo with an EF of 40-45%. Compared to previous study showed an LV systolic function has mildly declined - Dry weight appears approximately 76-78 kg. Admitting weight 82 kg. Strict I&O. - Patient has had 10 pound weight gain in the last week - Suspect acute rate related CHF -Cardio consulted -Given 40 mg IV Lasix once. (3) Dyspnea: (4) Hypertension: Plan: Diltiazem/metoprolol as noted. Currently pursuing rate control as above, BP adequate (5) Hypothyroidism: Plan: Continue Synthroid, TSH 04/2023 was normal (6) GERD (gastroesophageal reflux disease): Plan: No GI symptoms. No acute pharmacologic intervention indicated at this (7) Elevated troponin: Plan: -Demand ischemia secondary to A-fib with RVR and heart failure. (8) Heart failure with mid-range ejection fraction: (9) Pulmonary hypertension: Plan DVT PPx: Eliquis CODE: Full Dispo: PCU Diet: HH Admission and Anticipated Discharge Date Admission Date: May 10, 2023 Supervising Physician Co-Signing Physician Notes I personally examined the patient and verified all feldman points of history and exam, discussed case, and agree with decision making with Dr Leger feels okay overall. Heart rates is still 1 teens to 120s mostly whenever I am in the room, but she notes that other than a very brief very occasional feeling of shortness of breath she feels fine. Cardiology input appreciated. Vitals noted, in general she is awake and alert pleasant no distress. Cardio shows her to be somewhat tachycardic and irregularly irregular. Breathing unlabored no accessory muscle use good effort. Skin shows no rashes no pallor or icterus. Neuro without focal deficits. A-fib/RVRongoing rate control, fortunately minimal symptoms. Does seem to have had a degree of acute HFrEF probably brought on by the tachycardiacontinue rate control and fluid management. Doing better. Otherwise as above. Subjective Patient seen bedside this morning. No issues or complaints at this time. Denie s any chest pain, palpitations, or other issues at this time Review of Systems Review of Systems: All systems reviewed & are unremarkable except as noted in Subjective Physical Exam Physical Exam: Constitutional: well-appearing, no acute distress HEENT: NCAT, no conjunctival injection CV: Irregularly irregular, no murmur appreciated, extremities well-perfused, slight lower extremity pitting edema Resp: CTABL, no wheezes/rales/rhonchi appreciated, no increased work of breathing GI: soft, nondistended, nontender, BS normoactive MSK: no gross deformities appreciated Skin: warm, dry, no rash appreciated Neuro: alert, oriented, no focal neurologic deficit appreciated Results & Data Results & Data Vital Signs (Past 12 Hours) Vital Signs Temp Pulse Pulse Resp BP Pulse Ox O2 Del Method 05/11/23 02:36 36.7 C 110 H 18 124/101 H 98 Room Air 10/28/23 02:07 112 H 05/10/23 20:00 123 H 05/10/23 22:47 36.6 C 110 H 18 142/97 H 96 Room Air Resident Activity Tracking Resident Involvement: Resident Care Provided Care Provided: Adult Hospital Medicine
[2023-05-11] MEDS: ALPRAZolam 0.25 MG TABLET PO SCH (08:17)
[2023-05-11] MEDS: APIXABAN 5 MG TABLET PO SCH ×2 (08:18→20:58)
[2023-05-11] MEDS: METOPROLOL TARTRATE 100 MG TAB PO SCH ×2 (08:18→20:58)
[2023-05-11] MEDS: CEROVITE ADV FORMULA TAB PO SCH (08:18)
[2023-05-11] MEDS: LORATADINE 10 MG TAB PO SCH (08:18)
[2023-05-11] MEDS: dilTIAZem HCL 30 MG TAB PO SCH ×3 (11:03→21:01)
[2023-05-11] MEDS: CALCIUM 600MG + VIT D 400 IU TAB PO SCH (11:04)
[2023-05-11] MEDS: CYANOCOBALAMIN (B-12) 500 MCG TABLET PO SCH (11:04)
--- NOTE | 2023-05-11 12:11 | Cardiology Progress Note ---
Date of Service May 11, 2023 Assessment & Plan (1) Atrial fibrillation with rapid ventricular response: (2) Heart failure with mid-range ejection fraction: (3) Pulmonary hypertension: (4) Elevated troponin: (5) Hypertension: Plan ASSESSMENT/PLAN: 1. Atrial fibrillation with rapid ventricular response: Likely contributing to her heart failure. Still high rates. Loaded with digoxin which we will continue. Will also start oral diltiazem. (relatively contraindicated in CHF, but I think if she has better rate control EF will normalize) 2. Heart failure with midrange EF: Definitely improved. Will continue diuresis monitoring renal function and electrolytes. 3. Elevated troponin:No ACS 4. Hypertension: Blood pressure mostly mildly hypertensive. Diurese as above. Other heart failure medications as noted. 5. Pulmonary hypertension: Likely related to hypervolemic state. Diuresis as above. Admission and Anticipated Discharge Date Admission Date: May 10, 2023 Subjective Patient feeling better today. Feels that her edema and breathing are improved. No CP. No dizziness with ambulation. No sense of palpitation Review of Systems Review of Systems: per HPI Physical Exam Physical Exam: Gen.: No acute distress. Alert and oriented. HEENT: Anicteric sclera. Cardiac: No ventricular heave. Irregularly irregular. Tachycardic. Normal S1-S2. No murmurs, rubs, or gallops. Pulmonary: Clear to auscultation bilaterally without wheezes, rales, or rhonchi. Extremities: 2+ radial pulses bilaterally. Minimal lower extremity edema. B ilateral lower extremity varicose veins. No cyanosis. Psychiatric: Affect appears appropriate. Results & Data Vital Signs (Past 12 Hours) Vital Signs Temp Pulse Pulse Resp BP Pulse Ox O2 Del Method 05/11/23 11:37 37.0 C 127 H 20 116/88 96 Room Air 05/11/23 08:00 128 H 05/11/23 07:50 36.9 C 121 H 18 146/107 H 92 Room Air 05/11/23 02:36 36.7 C 110 H 18 124/101 H 98 Room Air 05/11/23 02:07 112 H Laboratory Results Abnormal Lab Results 05/10/23 05/10/23 05/10/23 11:28 11:28 11:28 WBC RBC Hgb Hct MCV MCH MCHC RDW Std Deviation RDW Coeff of Omar Plt Count MPV Immature Gran % (Auto) Neut % (Auto) Lymph % (Auto) [place] % (Auto) Eos % (Auto) Baso % (Auto) Neut # (Auto) Lymph # (Auto) [place] # (Auto) Eos # (Auto) Baso # (Auto) Immature Gran # (Auto) PT 12.3 H INR 1.1 APTT 29.6 PTT Ratio 1.0 Sodium 139 Potassium 4.1 Chloride 108 H Carbon Dioxide 25 Anion Gap 6 BUN 31 H Creatinine 1.05 Est Cr Clr Drug Dosing 39.7 Est GFR ( Amer) 56.5 Est GFR (Non-Af Amer) 48.7 BUN/Creatinine Ratio 29.5 H Glucose 103 H Calcium 9.1 Magnesium 2.4 Total Bilirubin 0.6 AST 89 H ALT 186 H Alkaline Phosphatase 107 H Troponin I High Sens 16.8 H B-Natriuretic Peptide 813 H Total Protein 6.5 Albumin 4.2 Globulin 2.3 L Albumin/Globulin Ratio 1.8 Digoxin 05/10/23 05/11/23 05/11/23 18:21 05:48 05:48 WBC 7.71 RBC 4.11 L Hgb 11.5 L Hct 35.4 L MCV 86.1 MCH 28.0 MCHC 32.5 RDW Std Deviation 46.1 RDW Coeff of Omar 14.8 H Plt Count 270 MPV 10.2 Immature Gran % (Auto) 0.8 Neut % (Auto) 70.7 Lymph % (Auto) 14.4 [place] % (Auto) 7.8 Eos % (Auto) 5.7 Baso % (Auto) 0.6 Neut # (Auto) 5.45 Lymph # (Auto) 1.11 L [place] # (Auto) 0.60 H Eos # (Auto) 0.44 Baso # (Auto) 0.05 Immature Gran # (Auto) 0.06 PT INR APTT PTT Ratio Sodium 141 Potassium 3.6 Chloride 105 Carbon Dioxide 29 Anion Gap 7 BUN 26 H Creatinine 1.05 Est Cr Clr Drug Dosing 38.6 Est GFR ( Amer) 56.5 Est GFR (Non-Af Amer) 48.7 BUN/Creatinine Ratio 24.8 H Glucose 90 Calcium 9.3 Magnesium Total Bilirubin AST ALT Alkaline Phosphatase Troponin I High Sens B-Natriuretic Peptide Total Protein Albumin Globulin Albumin/Globulin Ratio Digoxin < 0.3 L 10/28/23 05:48 WBC RBC Hgb Hct MCV MCH MCHC RDW Std Deviation RDW Coeff of Omar Plt Count MPV Immature Gran % (Auto) Neut % (Auto) Lymph % (Auto) [place] % (Auto) Eos % (Auto) Baso % (Auto) Neut # (Auto) Lymph # (Auto) [place] # (Auto) Eos # (Auto) Baso # (Auto) Immature Gran # (Auto) PT INR APTT PTT Ratio Sodium Potassium Chloride Carbon Dioxide Anion Gap BUN Creatinine Est Cr Clr Drug Dosing Est GFR ( Amer) Est GFR (Non-Af Amer) BUN/Creatinine Ratio Glucose Calcium Magnesium Total Bilirubin AST ALT Alkaline Phosphatase Troponin I High Sens B-Natriuretic Peptide Total Protein Albumin Globulin Albumin/Globulin Ratio Digoxin 1.5 PG Care Time/CCT Total # of Minutes Spent Total Time Spent with Patient: Total time spent is greater than 50% in coordination of care (as documented) at patient's floor/unit and/or counseling patient: Coding Level of Care Code 68302 SUB INP/OBS CARE 2/35MIN Diagnoses Atrial fibrillation with rapid ventricular response I48.91 Heart failure with mid-range ejection fraction I50.22 Pulmonary hypertension I27.20 Elevated troponin R79.89 Hypertension I10
[2023-05-11] MEDS ORDERED: FUROSEMIDE INJ 20 MG/2 ML VIAL IV ONE (12:13)
[2023-05-11] MEDS ORDERED: DIGOXIN 0.125 MG TAB PO ONE (15:00)
--- NOTE | 2023-05-11 17:09 | Billing Data ---
Date of Service May 11, 2023 Coding Level of Care Code 05898 SUB INP/OBS CARE
[2023-05-12] MEDS: dilTIAZem HCL 30 MG TAB PO SCH ×2 (03:37→09:23)
[2023-05-12 06:01] LABS: Basophils # (auto) 0.05 K/uL (0.00-0.20); Basophils % (auto) 0.6 %; Eosinophils # (auto) 0.66 K/uL (0.00-0.50); Eosinophils % (auto) 8.1 %; Hematocrit (blood only) 36.8 % (37.0-47.0); Immature Granulocytes # (auto) 0.05 K/uL (0.01-0.20); Immature Granulocytes % (auto) 0.6 %; Lymphocytes # (auto) 1.18 K/uL (1.20-3.40); Lymphocytes % (auto) 14.5 %; Mean Corpuscular Hgb Conc 32.6 g/dL (32.0-36.0); Mean Corpuscular Volume 85.8 fL (80.0-100.0); Mean Platelet Volume 10.2 fL (9.4-12.4); Monocytes # (auto) 0.69 K/uL (0.11-0.59); Monocytes % (auto) 8.5 %; Neutrophils # (auto) 5.49 K/uL (1.40-6.50); Neutrophils % (auto) 67.7 %; Platelet Count 258 K/uL (130-400); RDW Coefficient of Variation 14.6 % (11.5-14.5); RDW Standard Deviation 45.1 fL (36.4-46.3); Red Blood Count 4.29 M/uL (4.20-5.40); White Blood Count 8.12 K/ul (4.8-10.8)
[2023-05-12] MEDS: LEVOTHYROXINE SODIUM 50 MCG TABLET PO SCH (06:10)
[2023-05-12 06:20] LABS: BUN Creatinine Ratio 25.2 (10-20); Calcium 9.3 mg/dl (8.6-10.3); Creatinine Clr Calc Pharmacy 38.4 ml/min; Est GFR (African American) 57.8 ml/min; Est GFR (Non-African American) 49.9 ml/min; Potassium 3.6 mmol/L (3.5-5.1)
--- NOTE | 2023-05-12 07:02 | Hospitalist Progress Note ---
Date of Service May 12, 2023 Assessment & Plan (1) Atrial fibrillation with rapid ventricular response: Plan: - Recently diagnosed during hospitalization 04/29 with new onset A-fib - Was discharged on diltiazem 300 CD +100 twice daily for rate control, and Lizzette almas 5 twice daily for stroke prophylaxis. She has been compliant with these medications - Patient reports at least 5 days of worsening dyspnea on exertion, orthopnea, and lower extremity swelling in addition to 10 pounds of weight gain. Lungs are diminished, chest x-ray without evidence of volume overload, BNP is elevated - Chest x-ray does not show overt pulmonary edema or evidence of pleural effusions. - She had 2 office visits this past week and while hemodynamically stable and slightly fatigued, was tachycardic. Poor rate control with outpatient regimen - Placed on Cardizem drip in ER for acute rate control. - Patient with mild transaminitis, suspect poor flow in the setting of sustained RVR. Amiodarone deferred. - Reduced EF on echo, cardizem gtt d/nito. dig load ordered. 250mcg now, then q6h x4 total doses for load. + dig level in the am. - No chest pain or signs of ACS, ST depressions and trace troponin elevation of 16 are present likely from demand ischemia - BNP is elevated 800, DDx includes CHF versus direct rate related elevated -Cardiology consulted -Initially loaded with digitoxin and was started on oral diltiazem. -Patient continues to have tachycardia, DC diltiazem and started on amiodarone. ULI and cardioversion in the morning. (2) Acute HFrEF (heart failure with reduced ejection fraction): Plan: - Echo with an EF of 40-45%. Compared to previous study showed an LV systolic function has mildly declined - Dry weight appears approximately 76-78 kg. Admitting weight 82 kg. Strict I&O. - Patient has had 10 pound weight gain in the last week - Suspect acute rate related CHF -Cardio consulted -Improving with IV Lasix as needed. (3) Dyspnea: Plan: - Improving with IV Lasix. (4) Hypertension: Plan: Diltiazem/metoprolol as noted. Currently pursuing rate control as above, BP adequate (5) Hypothyroidism: Plan: Continue Synthroid, TSH 04/2023 was normal (6) GERD (gastroesophageal reflux disease): Plan: No GI symptoms. No acute pharmacologic intervention indicated at this (7) Elevated troponin: Plan: -Demand ischemia secondary to A-fib with RVR and heart failure. (8) Heart failure with mid-range ejection fraction: (9) Pulmonary hypertension: Plan DVT PPx: Eliquis CODE: Full Dispo: PCU Diet: HH Admission and Anticipated Discharge Date Admission Date: May 10, 2023 Supervising Physician Co-Signing Physician Notes I personally examined the patient and verified all feldman points of history and exam, discussed case, and agree with decision making with Dr Leger feels okay overall. Heart rates still up. Cardiology input appreciated. Vitals noted, in general she is awake and alert pleasant no distress. Cardio shows her to be somewhat tachycardic and irregularly irregular. Breathing unlabored no accessory muscle use good effort. Skin shows no rashes no pallor or icterus. Neuro without focal deficits. A-fib/RVRongoing rate control, fortunately minimal symptoms. Does seem to have had a degree of acute HFrEF probably brought on by the tachycardiacontinue rate control and fluid management. for cardioversion tomorrow since rate control efforts are failing Subjective Patient seen bedside this morning. She states that she feels good. She denies any chest pain or palpitations. Does state that her orthopnea has improved though she has been continuing to prop herself up when she sleeps. Review of Systems Review of Systems: All systems reviewed & are unremarkable except as noted in Subjective Physical Exam Physical Exam: Constitutional: well-appearing, no acute distress HEENT: NCAT, no conjunctival injection CV: Irregularly irregular, no murmur appreciated, extremities well-perfused, slight lower extremity pitting edema Resp: CTABL, no wheezes/rales/rhonchi appreciated, no increased work of breathing GI: soft, nondistended, nontender, BS normoactive MSK: no gross deformities appreciated Skin: warm, dry, no rash appreciated Neuro: alert, oriented, no focal neurologic deficit appreciated Results & Data Results & Data Vital Signs (Past 12 Hours) Vital Signs Temp Pulse Pulse Resp BP Pulse Ox O2 Del Method 05/12/23 03:00 36.7 C 122 H 16 127/69 98 Room Air 05/11/23 21:55 123 H 05/11/23 22:52 36.6 C 116 H 18 126/86 97 Room Air 05/11/23 19:33 36.5 C 126 H 18 126/77 97 Room Air Resident Activity Tracking Resident Involvement: Resident Care Provided Care Provided: Adult Hospital Medicine
[2023-05-12] MEDS: LORATADINE 10 MG TAB PO SCH (08:19)
[2023-05-12] MEDS: APIXABAN 5 MG TABLET PO SCH ×2 (08:19→19:56)
[2023-05-12] MEDS: CEROVITE ADV FORMULA TAB PO SCH (08:19)
[2023-05-12] MEDS: METOPROLOL TARTRATE 100 MG TAB PO SCH (08:19)
[2023-05-12] MEDS: ALPRAZolam 0.25 MG TABLET PO SCH (08:19)
[2023-05-12] MEDS: CALCIUM 600MG + VIT D 400 IU TAB PO SCH (11:09)
[2023-05-12] MEDS: CYANOCOBALAMIN (B-12) 500 MCG TABLET PO SCH (11:09)
--- NOTE | 2023-05-12 11:17 | Cardiology Progress Note ---
Date of Service May 12, 2023 Assessment & Plan (1) Atrial fibrillation with rapid ventricular response: (2) Heart failure with mid-range ejection fraction: (3) Pulmonary hypertension: (4) Elevated troponin: (5) Hypertension: Plan ASSESSMENT/PLAN: 1. Atrial fibrillation with rapid ventricular response: Not much improvement in her heart rate despite more aggressive attempts at rate control. I think we will need to switch our strategy to rhythm control and antiarrhythmic medication. We will stop her diltiazem. I will start her on amiodarone. Based on some history of noncompliance with apixaban will plan on a ULI and cardioversion tomorrow morning. I discussed the procedure with the patient today. 2. Heart failure with midrange EF: Improved. Will give a dose of oral diuretic today. Electrolytes and renal function stable. Very likely tachycardia mediated. Hopefully will see some improvement with return to sinus rhythm and overall better rate control. 3. Elevated troponin:No ACS 4. Hypertension: Blood pressure mostly mildly hypertensive. Diurese as above. Other heart failure medications as noted. 5. Pulmonary hypertension: Likely related to hypervolemic state. Diuresis as above. Admission and Anticipated Discharge Date Admission Date: May 10, 2023 Subjective The patient had no specific complaints this morning. She states that her lower extremity edema is essentially resolved. She denies breathing difficulty. No chest pain. No sense of palpitations. No orthopnea. Review of Systems Review of Systems: Per HPI Physical Exam Physical Exam: Gen.: No acute distress. Alert and oriented. HEENT: Anicteric sclera. Cardiac: No ventricular heave. Irregularly irregular. Tachycardic. Normal S1-S2. No murmurs, rubs, or gallops. Pulmonary: Clear to auscultation bilaterally without wheezes, rales, or rhonchi. Extremities: 2+ radial pulses bilaterally. Minimal lower extremity edema. Bilateral lower extremity varicose veins. No cyanosis. Psychiatric: Affect appears appropriate. Results & Data Vital Signs (Past 12 Hours) Vital Signs Temp Pulse Pulse Resp BP Pulse Ox O2 Del Method 05/12/23 08:00 127 H 05/12/23 07:58 36.5 C 147 H 20 137/113 H 94 Room Air 05/12/23 03:00 36.7 C 122 H 16 127/69 98 Room Air Laboratory Results Abnormal Lab Results 05/11/23 05/12/23 05/12/23 18:01 05:25 05:25 WBC 8.12 RBC 4.29 Hgb 12.0 Hct 36.8 L MCV 85.8 MCH 28.0 MCHC 32.6 RDW Std Deviation 45.1 RDW Coeff of Omar 14.6 H Plt Count 258 MPV 10.2 Immature Gran % (Auto) 0.6 Neut % (Auto) 67.7 Lymph % (Auto) 14.5 [place] % (Auto) 8.5 Eos % (Auto) 8.1 Baso % (Auto) 0.6 Neut # (Auto) 5.49 Lymph # (Auto) 1.18 L [place] # (Auto) 0.69 H Eos # (Auto) 0.66 H Baso # (Auto) 0.05 Immature Gran # (Auto) 0.05 Sodium 139 Potassium 3.6 Chloride 105 Carbon Dioxide 28 Anion Gap 6 BUN 26 H Creatinine 1.03 Est Cr Clr Drug Dosing 38.4 Est GFR ( Amer) 57.8 Est GFR (Non-Af Amer) 49.9 BUN/Creatinine Ratio 25.2 H Glucose 100 H Calcium 9.3 Digoxin 1.2 PG Care Time/CCT Total # of Minutes Spent Total Time Spent with Patient: Total time spent is greater than 50% in coordination of care (as documented) at patient's floor/unit and/or counseling patient: Coding Level of Care Code 41951 SUB INP/OBS CARE 2/35MIN Diagnoses Atrial fibrillation with rapid ventricular response I48.91 Heart failure with mid-range ejection fraction I50.22 Pulmonary hypertension I27.20 Elevated troponin R79.89 Hypertension I10
[2023-05-12] MEDS: AMIODARONE 200 MG TAB PO SCH ×2 (12:53→16:13)
--- NOTE | 2023-05-12 19:11 | Billing Data ---
Date of Service May 12, 2023 Coding Level of Care Code 56592 SUB INP/OBS CARE
[2023-05-12] MEDS: METOPROLOL TARTRATE 50 MG TAB PO SCH (19:56)
[2023-05-13] MEDS: LEVOTHYROXINE SODIUM 50 MCG TABLET PO SCH (06:05)
[2023-05-13 06:49] VITALS: TEMP 97.9
[2023-05-13 06:50] LABS: Basophils # (auto) 0.06 K/uL (0.00-0.20); Basophils % (auto) 0.8 %; Eosinophils # (auto) 0.72 K/uL (0.00-0.50); Eosinophils % (auto) 9.4 %; Hematocrit (blood only) 39.1 % (37.0-47.0); Hemoglobin 12.8 g/dl (12.0-16.0); Immature Granulocytes # (auto) 0.04 K/uL (0.01-0.20); Immature Granulocytes % (auto) 0.5 %; Lymphocytes # (auto) 1.19 K/uL (1.20-3.40); Lymphocytes % (auto) 15.5 %; Mean Corpuscular Hemoglobin 27.8 pg (25.0-34.0); Mean Corpuscular Hgb Conc 32.7 g/dL (32.0-36.0); Mean Corpuscular Volume 84.8 fL (80.0-100.0); Mean Platelet Volume 10.2 fL (9.4-12.4); Monocytes # (auto) 0.61 K/uL (0.11-0.59); Neutrophils # (auto) 5.04 K/uL (1.40-6.50); Neutrophils % (auto) 65.8 %; Platelet Count 275 K/uL (130-400); RDW Coefficient of Variation 14.8 % (11.5-14.5); RDW Standard Deviation 45.1 fL (36.4-46.3); Red Blood Count 4.61 M/uL (4.20-5.40); White Blood Count 7.66 K/ul (4.8-10.8)
--- NOTE | 2023-05-13 07:03 | Hospitalist Progress Note ---
Date of Service May 13, 2023 Assessment & Plan (1) Atrial fibrillation with rapid ventricular response: Plan: - Recently diagnosed during hospitalization 04/29 with new onset A-fib - Was discharged on diltiazem 300 CD +100 twice daily for rate control, and Lizzette almas 5 twice daily for stroke prophylaxis. She has been compliant with these medications - Patient reports at least 5 days of worsening dyspnea on exertion, orthopnea, and lower extremity swelling in addition to 10 pounds of weight gain. Lungs are diminished, chest x-ray without evidence of volume overload, BNP is elevated - Chest x-ray does not show overt pulmonary edema or evidence of pleural effusions. - She had 2 office visits this past week and while hemodynamically stable and slightly fatigued, was tachycardic. Poor rate control with outpatient regimen - Placed on Cardizem drip in ER for acute rate control. - Patient with mild transaminitis, suspect poor flow in the setting of sustained RVR. Amiodarone deferred. - Reduced EF on echo, cardizem gtt d/nito. dig load ordered. 250mcg now, then q6h x4 total doses for load. + dig level in the am. - No chest pain or signs of ACS, ST depressions and trace troponin elevation of 16 are present likely from demand ischemia - BNP is elevated 800, DDx includes CHF versus direct rate related elevated -Cardiology consulted -Initially loaded with digitoxin and was started on oral diltiazem. -Patient continues to have tachycardia, DC diltiazem and started on amiodarone. ULI and cardioversion in the morning. (2) Acute HFrEF (heart failure with reduced ejection fraction): Plan: - Echo with an EF of 40-45%. Compared to previous study showed an LV systolic function has mildly declined - Dry weight appears approximately 76-78 kg. Admitting weight 82 kg. Strict I&O. - Patient has had 10 pound weight gain in the last week - Suspect acute rate related CHF -Cardio consulted -Improving with IV Lasix as needed. (3) Dyspnea: Plan: - Improving with IV Lasix. (4) Hypertension: Plan: Diltiazem/metoprolol as noted. Currently pursuing rate control as above, BP adequate (5) Hypothyroidism: Plan: Continue Synthroid, TSH 04/2023 was normal (6) GERD (gastroesophageal reflux disease): Plan: No GI symptoms. No acute pharmacologic intervention indicated at this (7) Elevated troponin: Plan: -Demand ischemia secondary to A-fib with RVR and heart failure. (8) Heart failure with mid-range ejection fraction: (9) Pulmonary hypertension: Plan DVT PPx: Eliquis CODE: Full Dispo: PCU Diet: Admission and Anticipated Discharge Date Admission Date: May 10, 2023 Results & Data Results & Data Vital Signs (Past 12 Hours) Vital Signs Temp Pulse Resp BP BP Pulse Ox O2 Del Method 05/13/23 06:48 36.6 C 134 H 16 155/105 H 99 Room Air 05/13/23 03:20 36.3 C L 129 H 22 155/88 H 100 Room Air 05/12/23 23:13 36.7 C 118 H 20 135/103 H 99 Room Air 05/12/23 20:00 Room Air 05/12/23 19:17 36.6 C 129 H 20 147/106 H 97 Room Air
[2023-05-13 07:25] LABS: BUN Creatinine Ratio 22.5 (10-20); Calcium 9.4 mg/dl (8.6-10.3); Creatinine Clr Calc Pharmacy 38.7 ml/min; Est GFR (African American) 58.5 ml/min; Est GFR (Non-African American) 50.5 ml/min; Potassium 3.8 mmol/L (3.5-5.1)
--- NOTE | 2023-05-13 09:02 | Anesthesiology Consultation ---
Date of Service May 13, 2023 Assessment & Plan Chart Review Chart Review: Acceptable Risk for Surgery and Patient NOT seen in Pre Admission Testing Consults Requested none ASA ASA4 Proposed Anesthesia Anesthesia Type: MAC History Height/Weight Height: 5 ft 1 in Weight: 77.7 kg Allergies Allergy/AdvReac Type Severity Reaction Status Date / Time NSAIDS (Non-Steroidal Allergy Severe RENAL Verified 05/09/23 08:12 Anti-Inflamma FAILURE adhesive Allergy Mild RASH Verified 05/09/23 08:12 latex Allergy Mild RASH Verified 05/09/23 08:12 procaine Allergy Mild prolonged Verified 05/09/23 08:12 effect orange Allergy Verified 05/09/23 08:12 orange juice Allergy Verified 05/09/23 08:12 pepper (genus Capsicum) Allergy Verified 05/09/23 08:12 sesame seed Allergy Verified 05/09/23 08:12 amoxicillin AdvReac Intermediate Diarrhea Verified 05/09/23 08:12 Medications Home Medications Medication Instructions Recorded Confirmed Last Taken calcium carbonate 500 mg-vitamin 1 tab PO QDL 12/18/19 05/10/23 02/04/21 D3 5 mcg (200 unit) tablet (Os-Glenn 500 + D3) cyanocobalamin (vitamin B-12) 500 1,000 mcg PO QDL 12/18/19 05/10/23 02/04/21 mcg tablet qaphyvjy-jjwb-nbfn 8 mg-folic 400 1 tab PO QDL 12/20/20 05/10/23 02/04/21 mcg-K 50 mcg-lutein 300 mcg tablet (Centrum [place] Women) clindamycin HCl 300 mg capsule 600 mg PO .COMPLEX 05/18/21 05/10/23 Unknown hemp cream 1 applic topical UD PRN Pain 11/19/22 05/10/23 Unknown alprazolam 0.25 mg tablet 0.25 mg PO DAILY 04/29/23 05/10/23 Unknown calcium glycerophosphate 65 mg 130 mg PO UD PRN when eating 04/29/23 05/10/23 Unknown tablet problem food cyclobenzaprine 5 mg tablet 5 mg PO TID PRN Muscle Spasm 04/29/23 05/10/23 Unknown levothyroxine 50 mcg tablet 50 mcg PO DAILYBB 04/29/23 05/10/23 Unknown loratadine 10 mg tablet (Claritin) 10 mg PO DAILY 04/29/23 05/10/23 Unknown melatonin 5 mg tablet 5 mg PO HS PRN Sleep 04/29/23 05/10/23 Unknown omega-3 fatty acids 1,000 mg 1,000 mg PO QDL 04/29/23 05/10/23 Unknown capsule apixaban 5 mg tablet (Eliquis) 5 mg PO BID #60 tabs 05/02/23 05/10/23 Unknown metoprolol tartrate 100 mg tablet 100 mg PO BID #60 tabs 05/02/23 05/10/23 Unknown kayvwrnjjkfc-mghqyqlc-ehxvmo tablet 1 tab PO DAILY 05/09/23 05/10/23 Unknown Saccharomyces boulardii 50 mg 50 mg PO TIDWMEAL 05/10/23 05/10/23 Unknown capsule diltiazem HCl 300 mg 300 mg PO QAM 05/10/23 05/10/23 Unknown capsule,extended release 24 hr exemestane 25 mg tablet 25 mg PO . WITH LUNCH 05/10/23 05/10/23 Unknown famotidine 40 mg tablet 40 mg PO DAILY 05/10/23 05/10/23 Unknown famotidine 40 mg tablet 40 mg PO DAILY PRN Heartburn 05/10/23 05/10/23 Unknown fluoxetine 10 mg capsule 10 mg PO DAILY 05/10/23 05/10/23 Unknown fluoxetine 20 mg capsule 20 mg PO DAILY 05/10/23 05/10/23 Unknown fluticasone propionate 50 2 spray intranasal DAILY 05/10/23 05/10/23 Unknown mcg/actuation nasal spray,suspension dgdsofmqjbm-lqs-qbptqswdg-vitC 1 cap PO . WITH LUNCH 05/10/23 05/10/23 Unknown capsule (Glucosamine Complex-MSM capsule) prednisone 5 mg tablet 5 mg PO DIRECTED 05/10/23 05/10/23 Unknown simvastatin 20 mg tablet 20 mg PO QPM 05/10/23 05/10/23 Unknown tramadol 50 mg tablet 50 mg PO Q6H PRN Pain 05/10/23 05/10/23 Unknown vitamins A,C,M-jqor-utikey 4,296 1 cap PO BID 05/10/23 05/10/23 Unknown mcg-226 mg-90 mg capsule (PreserVision AREDS) Active Medications Generic Name Dose Route Start Last Admin Trade Name Freq PRN Reason Stop Dose Admin Acetaminophen 650 mg 05/10/23 16:48 05/12/23 18:04 Acetaminophen 325 Mg Tab PO 06/09/23 16:47 650 mg Q4H PRN Administration Pain or Fever Alprazolam 0.25 mg 05/11/23 09:00 05/12/23 08:19 Alprazolam 0.25 Mg Tablet PO 06/10/23 08:59 0.25 mg DAILY JORGE Administration Amiodarone HCl 400 mg 05/12/23 11:20 05/12/23 16:13 Amiodarone 200 Mg Tab PO 06/11/23 11:19 400 mg BIDM JORGE Administration Apixaban 5 mg 05/10/23 21:00 05/12/23 19:56 Apixaban 5 Mg Tablet PO 06/09/23 20:59 5 mg BID JORGE Administration Calcium/Vitamin D 1 tab 05/11/23 11:30 05/12/23 11:09 Calcium 600mg + Vit D 400 Iu Tab PO 06/10/23 11:29 1 tab QDL JORGE Administration Cyanocobalamin 1,000 mcg 05/11/23 11:30 05/12/23 11:09 Cyanocobalamin (B-12) 500 Mcg Tablet PO 06/10/23 11:29 1,000 mcg QDL JORGE Administration Levothyroxine Sodium 50 mcg 05/11/23 06:30 05/13/23 06:05 Levothyroxine Sodium 50 Mcg Tablet PO 06/10/23 06:29 Not Given DAILYBB JORGE Loratadine 10 mg 05/11/23 09:00 05/12/23 08:19 Loratadine 10 Mg Tab PO 06/10/23 08:59 10 mg DAILY JORGE Administration Metoprolol Tartrate 50 mg 05/12/23 21:00 05/12/23 19:56 Metoprolol Tartrate 50 Mg Tab PO 06/11/23 20:59 50 mg BID JORGE Administration Multivitamins/Minerals 1 tab 05/11/23 09:00 05/12/23 08:19 Cerovite Adv Formula Tab PO 06/10/23 08:59 1 tab DAILY JORGE Administration Past Medical History Medical History Abnormal ECG Acute blood loss anemia Acute GI bleeding Atrial fibrillation with rapid ventricular response Duodenal ulcer GERD (gastroesophageal reflux disease) Well controlled and stable GI bleeding History of breast cancer Dx 2017; h/o lumpectomy + radiation No current issues Hypertension Hypothyroidism Laceration of right lower leg S/p laceration to right distal LE- 15 stitches (since removed) Dr. Rodriguez aware Lumbar radiculopathy, right LVH (left ventricular hypertrophy) follows with Dr. Koch Nausea and vomiting Osteoarthritis Overactive bladder Trochanteric bursitis of right hip Troponin I above reference range Mild pulmonary HTN obese mod. LV HK EF 40% CHF Exercise / Class Metabolic Activity III < 4 Walking/Shop/Light housework Past Family History Family History Unknown Aortic aneurysm Past Surgical History Surgical History History of breast biopsy History of cholecystectomy History of colonoscopy History of left knee replacement History of lumpectomy of left breast (02/22/17) Left partial mastectomy with SLNB 02/22/17 Dr. Vora History of right knee surgery History of tonsillectomy and adenoidectomy Status post total right knee replacement Past Anesthesia History No Hx of Anesthesia Complications and No Family Hx of Anesthesia Complications History of PONV No Hx of PONV and No Hx of Motion Sickness Social History Smoking Status: Never smoker Do You Dip or Chew Tobacco: No Hx Alcohol Use: No Alcohol type: wine alcohol intake frequency: holidays/special occasions only Hx Substance Use: No substance use type: does not use Physical Exam Vital Signs Last Vital Signs Temp 36.6 C 05/13/23 06:48 Pulse 134 H 05/13/23 06:48 Resp 16 05/13/23 06:48 BP 155/105 H 05/13/23 06:48 Pulse Ox 99 05/13/23 06:48 O2 Del Method Room Air 05/13/23 07:29 Testing Laboratory Results 05/13/23 06:08 05/13/23 06:08 PT 12.3 Seconds (9.0-12.0) H 05/10/23 11:28 INR 1.1 (0.9-1.1) 05/10/23 11:28 APTT 29.6 Seconds (21.0-31.0) 05/10/23 11:28 Electrocardiogram Date: 05/10/23 Findings: + AFIB @ (@ 134 w/ RVR;ST & T wave abnormality;? lateral ischemia) Chest X-Ray Date: 05/10/23 Findings: + NAD and + cardiomegaly Echocardiogram Date: 05/10/23 EF: 40% RWMA: + none and + hypokinetic (globally) Other Findings: + atrial enlargement (severe LA dilation) and + LVH (moderate) Valvular Disease: + MR (mild) mild TR Mild Pulm. HTN RV-mildly dilated
[2023-05-13 09:43] LABS: Magnesium 2.3 mg/dl (1.7-2.4)
[2023-05-13] MEDS ORDERED: LIDOCAINE 2% 2 ML VIAL/AMP(20MG/ML) INFIL ONE (09:59)
[2023-05-13] MEDS ORDERED: PROPOFOL IV EMULSION 10 MG/ML 20 ML VIAL IV ONE (09:59)
[2023-05-13] MEDS ORDERED: ePHEDrine sulfate 50 MG/5 ML SYR ONE (09:59)
[2023-05-13] MEDS ORDERED: BENZOCAINE/TETRACAIN/BUTAM 50 APPLN/5 GM CAN EXT ONE (10:03)
[2023-05-13 10:28] VITALS: RESP 18
--- NOTE | 2023-05-13 10:49 | Cardioversion ---
Date of Service May 13, 2023 PG Electrical Cardioversion Rp Electrical Cardioversion Report Procedure performed: Cardioversion Indication: Atrial fibrillation Staff egg gatherer: Jhonatan Torres MD Procedure in detail: The patient was informed of the risks benefits and alternatives to the intended procedure. He understood such which proceed. He was taken to the cardiac catheterization suite holding area. A general anesthetic was administered by the Anesthesiology Service. Once appropriately anesthetized, the patient was cardioverted using 200 joules delivered in a biphasic fashion. This returned the patient to sinus rhythm. The patient tolerated procedure well, there were no immediate complications. Patient was neurologically intact subsequent to the procedure. Impression: Successful cardioversion from atrial fibrillation to normal sinus rhythm Coding Level of Care Code 34334 CARDIOVERSION, ELECTIVE Additional Codes Electrical Cardioversion Report ([id number])
--- NOTE | 2023-05-13 11:02 | Cardiology Progress Note ---
Date of Service May 13, 2023 Assessment & Plan (1) Atrial fibrillation with rapid ventricular response: (2) Heart failure with mid-range ejection fraction: (3) Pulmonary hypertension: (4) Elevated troponin: (5) Hypertension: Plan ASSESSMENT/PLAN: 1. Atrial fibrillation with rapid ventricular response: She underwent successful cardioversion today. Will continue the amiodarone 400 mg twice daily for another 9 days. This can then be reduced to 200 mg daily. I will continue her metoprolol dose. I do not think she will require carvedilol or digoxin at this point. Continue Eliquis. 2. Heart failure with midrange EF: Improved. Continue beta-blockade. Of diuretic here in the hospital. She will need to monitor her weight and breathing trouble at home. I do not think she requires a daily diuretic. 3. Elevated troponin:No ACS 4. Hypertension: Variable blood pressure. If she maintains sinus rhythm, is ambulatory and feeling well I think she could easily be discharged today. She should continue amiodarone 400 mg twice daily for another 9 days then reduce 200 mg daily. Would send her home on metoprolol succinate 100 mg daily as well as apixaban 5 mg twice daily. I would not continue diltiazem and digoxin. Admission and Anticipated Discharge Date Admission Date: May 10, 2023 Subjective This morning patient claimed he feeling well. She did not report any new symptoms. No breathing difficulty at this time. No dizziness or lightheadedness. No sense of palpitation Review of Systems Review of Systems: Per HPI Physical Exam Physical Exam: Gen.: No acute distress. Alert and oriented. HEENT: Anicteric sclera. Cardiac: No ventricular heave. Irregularly irregular. Tachycardic. Normal S1-S2. No murmurs, rubs, or gallops. Pulmonary: Clear to auscultation bilaterally without wheezes, rales, or rhonchi. Normal respiratory effort Extremities: 2+ radial pulses bilaterally. Minimal lower extremity edema. Bilateral lower extremity varicose veins. No cyanosis. Psychiatric: Affect appears appropriate. Results & Data Vital Signs (Past 12 Hours) Vital Signs Temp Pulse Resp BP BP Pulse Ox O2 Del Method 05/13/23 10:20 138 H 18 121/90 98 Room Air 05/13/23 07:29 Room Air 05/13/23 06:48 36.6 C 134 H 16 155/105 H 99 Room Air 10/30/23 03:20 36.3 C L 129 H 22 155/88 H 100 Room Air 05/12/23 23:13 36.7 C 118 H 20 135/103 H 99 Room Air Laboratory Results Abnormal Lab Results 05/13/23 05/13/23 06:08 06:08 WBC 7.66 RBC 4.61 Hgb 12.8 Hct 39.1 MCV 84.8 MCH 27.8 MCHC 32.7 RDW Std Deviation 45.1 RDW Coeff of Omar 14.8 H Plt Count 275 MPV 10.2 Immature Gran % (Auto) 0.5 Neut % (Auto) 65.8 Lymph % (Auto) 15.5 [place] % (Auto) 8.0 Eos % (Auto) 9.4 Baso % (Auto) 0.8 Neut # (Auto) 5.04 Lymph # (Auto) 1.19 L [place] # (Auto) 0.61 H Eos # (Auto) 0.72 H Baso # (Auto) 0.06 Immature Gran # (Auto) 0.04 Sodium 140 Potassium 3.8 Chloride 106 Carbon Dioxide 28 Anion Gap 6 BUN 23 Creatinine 1.02 Est Cr Clr Drug Dosing 38.7 Est GFR ( Amer) 58.5 Est GFR (Non-Af Amer) 50.5 BUN/Creatinine Ratio 22.5 H Glucose 94 Calcium 9.4 Magnesium 2.3 PG Care Time/CCT Total # of Minutes Spent Total Time Spent with Patient: Total time spent is greater than 50% in coordination of care (as documented) at patient's floor/unit and/or counseling patient: Coding Level of Care Code 88369 SUB INP/OBS CARE 2/35MIN Diagnoses Atrial fibrillation with rapid ventricular response I48.91 Heart failure with mid-range ejection fraction I50.22 Pulmonary hypertension I27.20 Elevated troponin R79.89 Hypertension I10
[2023-05-13] MEDS ORDERED: FUROSEMIDE 20 MG TAB PO ONE (11:05)
[2023-05-13] MEDS: ALPRAZolam 0.25 MG TABLET PO SCH (11:27)
[2023-05-13 11:33] VITALS: O2SAT 98
[2023-05-13] MEDS: METOPROLOL TARTRATE 50 MG TAB PO SCH (11:33)
[2023-05-13] MEDS: CEROVITE ADV FORMULA TAB PO SCH (11:35)
[2023-05-13] MEDS: CYANOCOBALAMIN (B-12) 500 MCG TABLET PO SCH (11:35)
[2023-05-13] MEDS: CALCIUM 600MG + VIT D 400 IU TAB PO SCH (11:35)
[2023-05-13] MEDS: LORATADINE 10 MG TAB PO SCH (11:36)
--- NOTE | 2023-05-13 11:36 | XCELERA ---
[id number]
[2023-05-13 11:42] VITALS: PULSE 65
[2023-05-13] MEDS: AMIODARONE 200 MG TAB PO SCH (11:43)
--- NOTE | 2023-05-13 11:57 | Discharge Summary ---
Date of Service May 13, 2023 Admission HPI Per Admitting Provider Kari is an 82-year-old female with a past medical history of A-fib with RVR on diltiazem/metoprolol/Eliquis, hypertension, hypothyroidism, anxiety, renal angiomyolipoma, osteoarthritis, depression/anxiety who recently was admitted from 04/29/2023 - 05/02/2023 for new onset A-fib with RVR who presents with shortness of breath, orthopnea, leg swelling, fatigue, and RVR suggestive of rate related heart failure. She has not had chest pain at any point. Kari seen at the bedside. She reports that she has been taking her medications as prescribed since discharge reliably and has missed no doses of medications. She takes metoprolol 100 mg at 11 AM and at bedtime, and [id number] mg extended release 24-hour every morning. She reports she took her Synthroid, and the diltiazem 300 mg capsule this morning, but came to the hospital prior to taking her 11 AM dose of metoprolol. She reports that she has taken her Eliquis as directed including this morning, and has not missed doses of this. She reports that she has had progressive leg swelling, shortness of breath, shortness of breath while laying flat which has been most noticeable and progressive since Saturday, approximately 5 days ago she has had some increased arthritis pain and notes she was seen on the by her PCP. She notes that she had some lumbar pain and she was prescribed prednisone for this, edema was suspected to be due to diltiazem was recommended to see cardiology and elevate her legs in the meantime on follow-up to rheumatology 05/09 she was noted to have a rapid heart irregular heart rate with normal blood pressure.She denies ch est pain at any point in the last 2 weeks, and reports she is pain-free at time of assessment. She is not short of breath sitting up in bed , SPO2 94% on room air. She does not normally use oxygen at home. She endorses 10 pounds of weight gain in the last week Kari is leaving for [place] to be with family where she will stay through the spring, she is scheduled to leave May 30. She reports her #1 goal is to make that flight with her granddaughters who will be traveling with her to help care for her. She reports she would like to see Dr. Eaton and follow-up with cardiology prior to that visit, and then will establish with cardiology and has a PCP in [place] who she will see subsequently Medical History: Reviewed Medications: Reviewed Surgical History: Reviewed Family history: Reviewed Allergies: Reviewed Social History: Reviewd Code Status:Full Admission Exam Per Admitting Provider General: A&Ox3. NAD. Cooperative. HEENT: Atraumatic, normocephalic. Vision/hearing intact. MM dry. Pulm: CTAB A&P. -wheezes, -rales, -rhonchi. Symmetrical chest rise. No increased work of breathing. No respiratory distress. Cardiac: Rapid rate of [id number], slightly irregular. Radial pulses intact and symmetrical. no jvd Abdominal: Nontender, nondistended, soft. BS present. Extremities: Warm, dry. No pitting edema Principal Diagnosis Atrial fibrillation with RVR Discharge Exam Constitutional: well-appearing, no acute distress HEENT: NCAT, no conjunctival injection CV: regular rhythm, no murmur appreciated, extremities well-perfused, no LE edema Resp: CTABL, no wheezes/rales/rhonchi appreciated, no increased work of breathing GI: soft, nondistended, nontender, BS normoactive MSK: no gross deformities appreciated Skin: warm, dry, no rash appreciated Neuro: alert, oriented, no focal neurologic deficit appreciated Discharge Data Allergies Allergy/AdvReac Type Severity Reaction Status Date / Time NSAIDS (Non-Steroidal Allergy Severe RENAL Verified 05/09/23 08:12 Anti-Inflamma FAILURE adhesive Allergy Mild RASH Verified 05/09/23 08:12 latex Allergy Mild RASH Verified 05/09/23 08:12 procaine Allergy Mild prolonged Verified 05/09/23 08:12 effect orange Allergy Verified 05/09/23 08:12 orange juice Allergy Verified 05/09/23 08:12 pepper (genus Capsicum) Allergy Verified 05/09/23 08:12 sesame seed Allergy Verified 05/09/23 08:12 amoxicillin AdvReac Intermediate Diarrhea Verified 05/09/23 08:12 Consultations 05/10/23 14:00 ED Decision to Admit Stat 05/10/23 16:48 Consult Cardiology Routine 05/10/23 18:08 [facility] CHF Program Referral Routine 05/13/23 08:39 Consult Anesthesiology Routine Procedures Performed Operation Date: 05/13/23 09:30 Actual Procedures p Echo Transesophageal(Not Applicable) - MD otto Zuleta Cardioversion(Not Applicable) - MD otto Zuleta Echo Color Flow - MD otto Zuleta Doppler Echo Limited/Follow Up(Not Applicable) - Jhonatan Torres MD Ordered Studies 05/13/23 09:00 CL Cath Imgs for PACS use only Routine Chest X-Ray 05/10/23 11:02 XR chest 1V portable CLINICAL HISTORY: Chest pain, nonspecific. COMPARISON STUDY: Chest radiograph April 29, 2023. FINDINGS: Lung volumes are normal. Lungs are clear. There is no pneumothorax or pleural effusion. Cardiomegaly is unchanged. Mediastinal contours are normal. There is no evidence for pulmonary edema. IMPRESSION: No acute cardiopulmonary findings. Cardiomegaly. ACT 112: Negative or not required by law. Electronically signed by: Norm Tineo M.D. 05/10/2023 1:55 PM Chest X-Ray 05/10/23 11:02 XR chest 1V portable CLINICAL HISTORY: Chest pain, nonspecific. COMPARISON STUDY: Chest radiograph April 29, 2023. FINDINGS: Lung volumes are normal. Lungs are clear. There is no pneumothorax or pleural effusion. Cardiomegaly is unchanged. Mediastinal contours are normal. There is no evidence for pulmonary edema. IMPRESSION: No acute cardiopulmonary findings. Cardiomegaly. ACT 112: Negative or not required by law. Electronically signed by: Norm Tineo M.D. 05/10/2023 1:55 PM Hospital Course (1) Atrial fibrillation with rapid ventricular response: (2) Acute HFrEF (heart failure with reduced ejection fraction): (3) Dyspnea: (4) Hypertension: (5) Hypothyroidism: (6) GERD (gastroesophageal reflux disease): (7) Elevated troponin: (8) Heart failure with mid-range ejection fraction: (9) Pulmonary hypertension: Plan Patient is an 82-year-old female who presents to the hospital with dyspnea on exertion, orthopnea, and lower extremity swelling with 10 pound weight gain. BMP was elevated. Patient was recently diagnosed with atrial fibrillation and started on diltiazem as well as Eliquis back on 04/29. #Atrial fibrillation with rapid ventricular response: -Chest x-ray does not show overt pulmonary edema or evidence of pleural effusions. -She had 2 office visits this past week and while hemodynamically stable and slightly fatigued, was tachycardic. Poor rate control with outpatient regimen -Initially started on Cardizem drip. Echo showed a reduced EF. -Unsuccessful control of A-fib with RVR with digoxin, diltiazem, or amiodarone. -Patient was successfully converted to sinus rhythm with cardioversion on 05/13. ULI done at that time showed left ventricular systolic function is mildly reduced, left atrium is severely dilated, right atrium is severely dilated, mild mitral regurgitation, no thrombus is detected in the left atrial appendage. -Patient should discontinue diltiazem and be on amiodarone 400 mg twice a day for the next 9 days and then switch to amiodarone 200 mg once a day -Toprol tartrate switch from the 100 mg twice daily to 50 mg twice daily at time of discharge. -Patient should follow-up with Dr. Koch in 1 to 2 weeks. #Acute HFrEF (heart failure with reduced ejection fraction) -Echo with an EF of 40-45%. Compared to previous study showed an LV systolic function has mildly declined -Dry weight appears approximately 76-78 kg. Admitting weight 82 kg. Strict I&O. -Symptoms improved with mild Lasix administration. -Daily Lasix not needed at this time, should follow-up with Dr. Koch in 1 to 2 weeks as well as PCP. #Hypertension -Change to hypertensive medicine as above. #Hypothyroidism -Continue Synthroid, -TSH 04/2023 was normal #GERD (gastroesophageal reflux disease) -No GI symptoms. No acute pharmacologic intervention indicated at this #Elevated troponin -Demand ischemia secondary to A-fib with RVR and heart failure. Total Time Total Time Spent Total Time Spent (In Minutes): Please refer to attendings attestation Discharge Plan Discharge Items Patient Disposition: Home - Self-Care Reason For Visit: AFIB RVR, ?CHF Discharge Diagnosis: Atrial fibrillation requiring cardioversion Activity: Resume your previous activity Non-emergency contact: Primary Care Provider and Toll Lineman Call non-emergency contact if: you have any medication questions, your pain is unusual for you and your temperature is above 101.5 Follow-up/Referrals: Gregorio Koch MD [Physician] - (1-2 weeks, A-fib status post cardioversion) [facility] [Primary Care Provider] - Diet: Heart Healthy Addtl Attending Provider Instructions: You were admitted to the hospital for atrial fibrillation with rapid ventricular response. Initially, tried to control atrial fibrillation with medicines. However, this was unsuccessful and a cardioversion was done on 05/13/2023 and yo u converted to a normal rhythm (also known as sinus rhythm). A discharge summary will be sent to your primary care physician to ensure continuity of care. Please bring this discharge summary with you to your next office appointment so that your provider can review it at that time. Follow-up appointments: * Make a follow-up appointment with your PCP within the next week. It is very important that you follow up with them shortly after discharge from the hospital. * We have requested a follow-up appointment with Dr. Koch (coil builder) in 1 to 2 weeks. If you do not hear from their office in the next 3 days, please call them at [phone] and schedule an appointment. * Keep all your follow-up appointments as already scheduled. If you cannot make an appointment, notify your provider. Medications: Your medication list has been reviewed and reconciled upon discharge to ensure accuracy and continuity of care. An updated list of all your medications is included with your hospital discharge paperwork. Please review this list closely, and make note of any changes. * We sent a new medication called amiodarone to your pharmacy. Take amiodarone on 400 mg twice a day for the next 9 days. After that is 9 days you will take amiodarone 200 mg daily. * We changed the dose of your metoprolol tartrate, which was sent to your pharmacy. You should take metoprolol tartrate 50 mg twice a day. * You should stop taking your diltiazem. * If you have any issues filling these prescriptions, please call [phone] and ask to leave a message for Dr. Leger. * Take your medications as instructed; do not skip a dose of your medicines. Make sure all of your doctors know every medicine you are taking (including zytk-nhn-ksdkpya medicines, vitamins, and supplements). Call your primary care provider before taking any new medicines (including over- the-counter medicines, vitamins, and supplements), because some of these may interact with your current medications, or may make your symptoms worse. Tell your primary care provider if you cannot afford your medications. CONTACT YOUR PRIMARY CARE PROVIDER if you experience any of the following: * Worsening of symptoms * Fever, chills, or fatigue * Difficulty following your treatment plan, or difficulty taking medications CALL 911 OR GO TO THE EMERGENCY DEPARTMENT if you experience any of the following: * Sudden, severe abdominal pain or nausea/vomiting * Severe chest pain, or chest pain that radiates (moves) to your jaw or arm * Sudden, severe shortness of breath or difficulty breathing Thank you for allowing us to participate in your care. Pending Studies at Discharge: No Stand-Alone Forms: My [facility], Smoking Cessation Medications and DC Order Prescriptions: New amiodarone 200 mg tablet 200 mg PO DAILY 30 Days Qty: 60 0RF Rx Instructions: take 2 tabs twice daily x 9 days then take 1 tab daily (replacing previous amiodarone Rx from Dr. Leger) metoprolol tartrate 50 mg tablet 50 mg PO BID 30 Days Qty: 60 0RF Rx Instructions: clarifying order from Dr. Leger Continued Centrum Silver Women 8 mg iron-400 mcg-300 mcg tablet 1 tab PO QDL cyanocobalamin (vitamin B-12) 500 mcg tablet 1,000 mcg PO QDL hemp cream 1 applic topical UD PRN (Reason: Pain) clindamycin HCl 300 mg capsule 600 mg PO .COMPLEX Rx Instructions: 600 mg PO before dental procedures calcium carbonate-vitamin D3 [Os-Glenn 500 + D3] 500 mg(1,250mg) -200 unit tablet 1 tab PO QDL famotidine 40 mg tablet 40 mg PO DAILY prednisone 5 mg tablet 5 mg PO DIRECTED Rx Instructions: 3 tabs daily for 3 days, 2 tabs daily for 3 days, and 1 tab daily for 3 days. with food. Saccharomyces boulardii 50 mg Capsule 50 mg PO TIDWMEAL tramadol 50 mg tablet 50 mg PO Q6H PRN (Reason: Pain) exemestane 25 mg tablet 25 mg PO . WITH LUNCH simvastatin 20 mg tablet 20 mg PO QPM fluoxetine 10 mg capsule 10 mg PO DAILY fluoxetine 20 mg capsule 20 mg PO DAILY fluticasone propionate 50 mcg/actuation [place],Suspension 2 spray INTRANASAL DAILY Rx Instructions: administer into each nostril PreserVision AREDS 4,296 mcg-226 mg-90 mg Capsule 1 cap PO BID famotidine 40 mg Tablet 40 mg PO DAILY PRN (Reason: Heartburn) Glucosamine Complex-MSM Capsule 1 cap PO . WITH LUNCH cyclobenzaprine 5 mg tablet 5 mg PO TID PRN (Reason: Muscle Spasm) levothyroxine 50 mcg tablet 50 mcg PO DAILYBB alprazolam 0.25 mg Tablet 0.25 mg PO DAILY omega-3 fatty acids 1,000 mg Capsule 1,000 mg PO QDL melatonin 5 mg Tablet 5 mg PO HS PRN (Reason: Sleep) loratadine [Claritin] 10 mg Tablet 10 mg PO DAILY calcium glycerophosphate 65 mg Tablet 130 mg PO UD PRN (Reason: when eating problem food) Rx Instructions: per pt Eliquis 5 mg Tablet 5 mg PO BID Qty: 60 0RF kygtuvyhjqrr-qkxqpbbe-qskuhz Tablet 1 tab PO DAILY Discontinued diltiazem HCl 300 mg capsule,extended release 24hr 300 mg PO QAM metoprolol tartrate 100 mg Tablet 100 mg PO BID Qty: 60 0RF Discharge Orders: Discharge Order (Routine); Ordered 05/13/23 Ordered By: Cristobal Leger Admission Data Admit Date/Time: 05/10/23 14:32 Attending Provider: Jhonatan Molina Admit Provider: Roosevelt Ruiz Primary Care Provider: [facility] Other Providers: Roosevelt Ruiz ; Noman Ramirez ; Rosibel Friedman ; Joyce William ; Yani Birmingham Sara M ; Robyn Mcgrath ; Ronnell Fuentes ; Oscar Cintron ; Jose L Mcdaniel ; Vineet Saba ; Miryam Saba ; Alcides Phan ; Rosibel Brooke ; Yusuf West ; Abdirahman Hull ; Jassi Hogan ; Devin Calero ; Elisabeth Limon ; Ramana Stanley ; Renetta Duenas ; Sultana Stanley ; Baltazar Dunn ; Maribel Carvalho ; Michael Judge ; Christie Berry ; No Peters ; Efraín Vora ; Anila Li ; Shayla Hamilton ; Susan Beavers ; Elizabeth Solomon ; Javier Solomon V ; Dav Carvajal ; Yani Berger ; Rey Sanchez ; Jojo Madrid ; Javier Posey ; Sami Limon ; Alexei Dillard ; Sadia Barger ; Ann Pantoja ; Javier Foster ; Farhad Quintero ; Marnie Garcia ; Cristobal Quinteros ; Sandi Alegria ; Cyndie Cobb ; Isiah Guerra ; Aiden Calero ; Lisa Ramírez ; Cameron Huitron ; Syed Kerr ; Jhonatan Love ; Ronnell Broderick Jr ; Julieth Calderon ; Dina Burton ; Shalini Orona ; Efraín Arellano ; Latonya Ramey ; Vineet Lee ; Wan Negron I. ; Suyapa Mitchell ; Dina Small ; Colin Ellington ; Vaibhav King ; Marcelino Novoa ; Tony Ugarte V. ; Tom Lui ; Floyd Velazquez ; Tamera Gómez ; Yulisa Martinez ; Ramila Pacheco ; Olga Lidia Maddne Other Interventions: Discharge Summary Assessment (RN) Last Done: 05/13/23 13:07 Supervising Physician Co-Signing Physician Notes Attending attestation Pt seen and examined in concert with Dr. Leger. In agreement with the documented findings as noted in the resident documentation with any exceptions or additions as noted here. Resting comfortably in chair at bedside following cardioversion and without acute complaint at this time. electrician's helper/helper at bedside reports at baseline. On examination, S1/S2 nl RRR no MCG. CTAB. Abd NT/ND BS+ve. V/S, lab studies and consult notes reviewed. Atrial fibrillation w/ RVR s/p cardioversion on 05/13/2023 - will d/c cardizem and start amiodarone as noted with close monitoring for further symptoms. Cardiology follow up as recommended. HFrEF w/ acute exacerbation 2/2 above - dry weight approximation as noted above. Encourage weight monitoring. Else see resident documentation as noted. Total attending physician time spent with this patient's care on the day of discharge: 45 minutes. Resident Activity Tracking Resident Involvement: Resident Care Provided Care Provided: Adult [facility] Medicine
--- NOTE | 2023-05-13 12:11 | Anesthesiology Progress Note ---
Date of Service May 13, 2023 Anesthesia Post Procedure Vital Signs Vital Signs: Temp Pulse Pulse Resp BP BP Pulse Ox 05/13/23 11:41 65 05/13/23 11:31 51 L 141/68 H 98 05/13/23 11:12 55 L 18 104/51 L 96 05/13/23 11:00 55 L 18 123/62 96 05/13/23 10:55 61 18 143/53 H 96 05/13/23 10:20 138 H 18 121/90 98 05/13/23 07:29 05/13/23 06:48 36.6 C 134 H 16 155/105 H 99 05/13/23 03:20 36.3 C L 129 H 22 155/88 H 100 05/12/23 23:13 36.7 C 118 H 20 135/103 H 99 05/12/23 20:00 05/12/23 19:17 36.6 C 129 H 20 147/106 H 97 05/12/23 16:30 131 H 05/12/23 14:28 36.9 C 123 H 18 127/92 96 O2 Del Method 05/13/23 11:41 05/13/23 11:31 Room Air 05/13/23 11:12 Room Air 05/13/23 11:00 Room Air 05/13/23 10:55 Room Air 05/13/23 10:20 Room Air 05/13/23 07:29 Room Air 05/13/23 06:48 Room Air 05/13/23 03:20 Room Air 05/12/23 23:13 Room Air 05/12/23 20:00 Room Air 05/12/23 19:17 Room Air 05/12/23 16:30 05/12/23 14:28 Room Air Transfer of Care Handoff Completed per policy Notes Mental Status: alert / awake / arousable Patient Amnestic to Procedure: Yes Nausea / Vomiting: adequately controlled Pain: adequately controlled Airway Patency, RR, SpO2: stable & adequate BP & HR: stable & adequate Hydration State: stable & adequate Anesthetic Complications: no major complications apparent
[2023-05-13 13:08] VITALS: BP 155/88
--- NOTE | 2023-05-13 13:21 | Electrocardiogram Report ---
Test Reason : Blood Pressure : / mmHG Vent. Rate : 055 BPM Atrial Rate : 055 BPM P-R Int : 162 ms QRS Dur : 086 ms QT Int : 434 ms P-R-T Axes : 056 009 181 degrees QTc Int : 415 ms Sinus bradycardia Abnormal ECG When compared with ECG of 10-MAY-2023 11:27, Sinus rhythm has replaced Atrial fibrillation Vent. rate has decreased BY 79 BPM Confirmed by Jhonatan Torres ([id number]) on 05/13/2023 1:21:09 PM Referred By: REFERRED SELF Confirmed By:Karri Torres
== END 2023-05-13 15:41 | disposition home or self-care (01) | DRG 308 ==
LOC: ED 10:47 → 2E 14:32 → SUATTDRO 14:32 → 2E 15:58
DX: Z79.52 Long term (current) use of systemic steroids; M19.90 Unspecified osteoarthritis, unspecified site; F41.8 Other specified anxiety disorders; I27.20 Pulmonary hypertension, unspecified; Z79.890 Hormone replacement therapy; Z79.51 Long term (current) use of inhaled steroids; Z79.899 Other long term (current) drug therapy; I48.91 Unspecified atrial fibrillation; Z91.040 Latex allergy status; I11.0 Hypertensive heart disease with heart failure; I24.89 Other forms of acute ischemic heart disease; K21.9 Gastro-esophageal reflux disease without esophagitis; E03.9 Hypothyroidism, unspecified; Z79.01 Long term (current) use of anticoagulants; I50.21 Acute systolic (congestive) heart failure; Z88.4 Allergy status to anesthetic agent; Z88.0 Allergy status to penicillin

== ENCOUNTER 2024-03-09 05:39 | Inpatient (IN) ==
--- NOTE | 2023-12-25 12:14 | PAT Medication Instructions ---
Medication Instructions Date of Service December 25, 2023 Home Medications Medication Instructions Recorded apixaban 5 mg tablet (Eliquis) 5 mg PO BID #180 tabs 05/20/23 metoprolol tartrate 50 mg tablet 50 mg PO BID 90 days #180 tabs 05/20/23 cyanocobalamin (vitamin B-12) 500 mcg tablet 1,000 mcg PO QDL Centrum Silver Women 1 tab PO QDL clindamycin HCl 300 mg capsule 600 mg PO UD PRN prior to dental procedure loratadine 10 mg tablet (Claritin) 10 mg PO QAM melatonin 5 mg tablet 5 mg PO HS PRN Sleep omega-3 fatty acids 1,000 mg capsule 2,000 mg PO QDL Saccharomyces boulardii 50 mg capsule 50 mg PO BID exemestane 25 mg tablet 25 mg PO QDL fluticasone propionate 50 mcg/actuation nasal spray,suspension 2 spray intranasal BID iucicouyshe-xap-gcknnltos-vitC capsule (Glucosamine Complex-MSM capsule) 1 cap PO QDL tramadol 50 mg tablet 50 mg PO Q6H PRN Pain apixaban 5 mg tablet (Eliquis) 5 mg PO BID metoprolol tartrate 50 mg tablet 50 mg PO BID acetaminophen 650 mg tablet,extended release (Tylenol Arthritis Pain) 650 mg PO UD PRN Pain Cbd Cream 1 dose topical BID amiodarone 200 mg tablet 200 mg PO Q OTHER DAY azelastine 137 mcg (0.1 %) nasal spray aerosol 1 - 2 spray intranasal UD PRN Allergy Symptoms cholecalciferol (vitamin D3) 50 mcg (2,000 unit) capsule (Vitamin D3) 1,000 mcg PO QDL furosemide 40 mg tablet 40 mg PO DAILY PRN edema in feet levothyroxine 100 mcg tablet 100 mcg PO QAM losartan 50 mg-hydrochlorothiazide 12.5 mg tablet 1 tab PO QAM potassium chloride 20 mEq tablet,extended release 20 meq PO DAILY PRN when taking lasix simvastatin 20 mg tablet 20 mg PO HS vit C 250 mg-vit E 90 mg-zinc 40 mg-copper 1 xw-fikvvy-kvwnna capsule (PreserVision AREDS-2) 1 tab PO BID Continue as directed clindamycin HCl 300 mg capsule 600 mg PO UD PRN prior to dental procedure amiodarone 200 mg tablet 200 mg PO Q OTHER DAY ASK your prescriber and surgeon apixaban 5 mg tablet (Eliquis) 5 mg PO BID exemestane 25 mg tablet 25 mg PO QDL STOP taking 2 weeks before surgery (or as soon as possible if surgery is within 2 weeks) omega-3 fatty acids 1,000 mg capsule 2,000 mg PO QDL edgecvxyikf-rdz-qnzbfbkar-vitC capsule (Glucosamine Complex-MSM capsule) 1 cap PO QDL vit C 250 mg-vit E 90 mg-zinc 40 mg-copper 1 ur-jopbcl-qhjxxi capsule (PreserVision AREDS-2) 1 tab PO BID STOP taking 24 hours before surgery Cbd Cream 1 dose topical BID DO NOT take the morning of surgery cyanocobalamin (vitamin B-12) 500 mcg tablet 1,000 mcg PO QDL Centrum Silver Women 1 tab PO QDL loratadine 10 mg tablet (Claritin) 10 mg PO QAM Saccharomyces boulardii 50 mg capsule 50 mg PO BID cholecalciferol (vitamin D3) 50 mcg (2,000 unit) capsule (Vitamin D3) 1,000 mcg PO QDL furosemide 40 mg tablet 40 mg PO DAILY PRN edema in feet losartan 50 mg-hydrochlorothiazide 12.5 mg tablet 1 tab PO QAM potassium chloride 20 mEq tablet,extended release 20 meq PO DAILY PRN when taking lasix Take morning of surgery With a small sip of water, OTHERWISE NOTHING TO EAT OR DRINK AFTER MIDNIGHT: fluticasone propionate 50 mcg/actuation nasal spray,suspension 2 spray intranasal BID tramadol 50 mg tablet 50 mg PO Q6H PRN Pain (if needed) metoprolol tartrate 50 mg tablet 50 mg PO BID acetaminophen 650 mg tablet,extended release (Tylenol Arthritis Pain) 650 mg PO UD PRN Pain (if needed) azelastine 137 mcg (0.1 %) nasal spray aerosol 1 - 2 spray intranasal UD PRN Allergy Symptoms (if needed) levothyroxine 100 mcg tablet 100 mcg PO QAM Take evening before surgery melatonin 5 mg tablet 5 mg PO HS PRN Sleep (if needed) Saccharomyces boulardii 50 mg capsule 50 mg PO BID fluticasone propionate 50 mcg/actuation nasal spray,suspension 2 spray intranasal BID tramadol 50 mg tablet 50 mg PO Q6H PRN Pain (if needed) metoprolol tartrate 50 mg tablet 50 mg PO BID acetaminophen 650 mg tablet,extended release (Tylenol Arthritis Pain) 650 mg PO UD PRN Pain (if needed) azelastine 137 mcg (0.1 %) nasal spray aerosol 1 - 2 spray intranasal UD PRN Allergy Symptoms (if needed) furosemide 40 mg tablet 40 mg PO DAILY PRN edema in feet (if needed) potassium chloride 20 mEq tablet,extended release 20 meq PO DAILY PRN when taking lasix (if needed) simvastatin 20 mg tablet 20 mg PO HS Other Notes If you have any questions please call us at [phone] or [phone] or [phone] or [phone]
--- NOTE | 2023-12-31 14:05 | Anesthesiology Consultation ---
Date of Service December 31, 2023 Assessment & Plan (1) Encounter for pre-operative examination: - awaiting [place] cardiology response to clearance workload note. - Patient reports she is feeling well today. I advised that we will need a cardiology clearance prior to surgery. She verbalized understanding and denied questions or concerns. Surgeon's office made aware. Workload note sent to [place] grout machine tender. - ER 12/27/23 [facility]: "...IV was established and lab work obtained, patient was placed on air sampling and monitoring...CMP shows hypokalemia 3.2, mild elevation in creatinine at 1.53 for which the patient was given IV fluids. Troponin is mildly elevated at 42.8, patient denies any chest pain, EKG shows atrial fibrillation with RVR per my interpretation without any obvious acute ischemic changes. Chest x-ray per my interpretation does not show any evidence of acute di sease...consented for cardioversion by cardiology, consented for sedation by myself...was cardioverted at the bedside with conversion to sinus rhythm...period of observation, no reassessment she states she feels well. Denies any chest pain...ambulated by the bedside RN without any issues. I suspect that her troponin elevation was secondary to demand ischemia from atrial fibrillation with RVR, her repeat EKG shows sinus rhythm without any evidence of ST elevation...continues to be chest pain-free. Low suspicion for ACS...nonspecific lesion in the left lung on chest ray and the patient was inf ormed of this for outpatient follow-up. Patient will follow-up with her PCP as well as her grout machine tender within the next 2 to 3 days for reassessment. Per my discussion with Dr. Torres, he did recommend that the patient begin taking amiodarone 200 mg daily as opposed to every other day..." - cardiology office visit 12/27/23 [place]: "...history of paroxysmal atrial fibrillation and resolved tachycardia induced cardiomyopathy. Presents today with increased edema, fatigue, dyspnea and chest pain. ECG in the office shows atrial fibrillation with RVR. She is currently on amiodarone 200 mg every other day and metoprolol tartrate 50 mg bid. Discussed with her grout machine tender, Dr. Koch, she may require cardioversion and therefore will refer her to the ED..." - Case discussed in detail with Dr. Dillard who advised medical clearance is not required from PCP, just cardiology clearance. Chart Review Chart Review: Pending: Refer to Additional Notes / Consult section and Patient seen in Pre Admission Testing Teaching & Discussion Pre-Anesthesia Teaching/Discussion Notes: Instructed NPO after midnight before surgery, except medications with 15 cc of water. Medication instructions provided according to the PAT guidelines. History Surgery Operation Date: 01/21/24 12:35 Proposed Procedures p L4-L5 Lateral Lumbar Interbody Fusion with Interbody Cage and Posterior Instrumentation with Spinal Cord Monitoring - Tom Acuña MD Height/Weight Height: 5 ft 2 in Weight: 79.9 kg Allergies Allergy/AdvReac Type Severity Reaction Status Date / Time NSAIDS (Non-Steroidal Allergy Severe RENAL Verified 12/27/23 10:01 Anti-Inflamma FAILURE adhesive Allergy Mild RASH Verified 12/27/23 10:01 latex Allergy Mild RASH Verified 12/27/23 10:01 procaine Allergy Mild prolonged Verified 12/27/23 10:01 effect amoxicillin AdvReac Intermediate Diarrhea Verified 12/27/23 10:01 orange AdvReac Intermediate "not Verified 12/27/23 10:01 supposed to take any citrus foods" orange juice AdvReac Intermediate "not Verified 12/27/23 10:01 supposed to take any citrus foods" pepper (genus Capsicum) AdvReac Intermediate "not Verified 12/27/23 10:01 supposed to take any due to an overactive bladder" sesame seed AdvReac Intermediate "not Verified 12/27/23 10:01 supposed to take any due to an overactive bladder" Medications Home Medications Medication Instructions Recorded Confirmed Last Taken cyanocobalamin (vitamin B-12) 500 1,000 mcg PO QDL 12/18/19 12/27/23 02/04/21 mcg tablet [id number] 8 mg-folic 400 1 tab PO QDL 12/20/20 12/27/23 02/04/21 mcg-K 50 mcg-lutein 300 mcg tablet (Centrum Silver Women) clindamycin HCl 300 mg capsule 600 mg PO UD PRN prior to dental 05/18/21 12/27/23 Unknown procedure loratadine 10 mg tablet (Claritin) 10 mg PO QAM 04/29/23 12/27/23 Unknown melatonin 5 mg tablet 5 mg PO HS PRN Sleep 04/29/23 12/27/23 Unknown omega-3 fatty acids 1,000 mg 2,000 mg PO QDL 04/29/23 12/27/23 Unknown capsule Saccharomyces boulardii 50 mg 50 mg PO BID 05/10/23 12/27/23 Unknown capsule exemestane 25 mg tablet 25 mg PO QDL 05/10/23 12/27/23 Unknown fluticasone propionate 50 2 spray intranasal BID 05/10/23 12/27/23 Unknown mcg/actuation nasal spray,suspension fnzwlcxpwks-wuz-epmqneaeg-vitC 1 cap PO QDL 05/10/23 12/27/23 Unknown capsule (Glucosamine Complex-MSM capsule) tramadol 50 mg tablet 50 mg PO Q6H PRN Pain 05/10/23 12/27/23 Unknown apixaban 5 mg tablet (Eliquis) 5 mg PO BID #180 tabs 05/20/23 12/27/23 Unknown metoprolol tartrate 50 mg tablet 50 mg PO BID 90 days #180 tabs 05/20/23 12/27/23 Unknown acetaminophen 650 mg 650 mg PO UD PRN Pain 12/04/23 12/27/23 Unknown tablet,extended release (Tylenol Arthritis Pain) Cbd Cream 1 dose topical BID 12/25/23 12/27/23 Unknown amiodarone 200 mg tablet 200 mg PO DAILY 12/25/23 12/31/23 Unknown cholecalciferol (vitamin D3) 50 1,000 mcg PO QDL 12/25/23 12/27/23 Unknown mcg (2,000 unit) capsule (Vitamin D3) furosemide 40 mg tablet 40 mg PO DAILY PRN edema in feet 12/25/23 12/27/23 Unknown levothyroxine 100 mcg tablet 100 mcg PO QAM 12/25/23 12/27/23 Unknown losartan 50 mg-hydrochlorothiazide 1 tab PO QAM 12/25/23 12/27/23 Unknown 12.5 mg tablet potassium chloride 20 mEq 20 meq PO DAILY PRN when taking 12/25/23 12/27/23 Unknown tablet,extended release lasix simvastatin 20 mg tablet 20 mg PO HS 12/25/23 12/27/23 Unknown vit C 250 mg-vit E 90 mg-zinc 40 1 tab PO BID 12/25/23 12/27/23 Unknown mg-copper 1 gs-eetoue-ptoyhf capsule (PreserVision AREDS-2) aspirin 81 mg tablet 81 mg PO PRN chest discomfort 12/31/23 Unknown azelastine 137 mcg (0.1 %) nasal 1 - 2 spray intranasal UD PRN 12/31/23 Unknown spray aerosol Allergy Symptoms #90 mL docusate sodium 50 mg/5 mL oral 50 mg PO PRN Constipation 12/31/23 Unknown liquid Past Medical History Medical History (Updated 01/01/24 @ 08:50 by Ann Pantoja PA-C) Acid reflux disease controlled, stable per pt Allergic rhinitis Angiomyolipoma of both kidneys Atrial fibrillation diagnosed 04/2023--follows with Dr. Koch--had cardioversion 12/27/23--on eliquis/metoprolol Cardiomyopathy Claustrophobia Degenerative joint disease involving multiple joints Degenerative spondylolisthesis Difficult intravenous access Duodenal ulcer hx Dyslipidemia Edema of both lower legs stable per pt GI bleeding hx of 2020 Heart failure follows with Dr. Koch History of anemia History of anxiety no meds currently History of breast cancer Dx 2016 left breast; h/o lumpectomy + radiation-no limb restriction History of cardioversion 04/2023 @ [facility] History of hypokalemia History of transesophageal echocardiography (ULI) 04/2023 Hypertension Hypothyroidism Lumbar back pain Lumbar radiculopathy, right Lumbar stenosis LVH (left ventricular hypertrophy) follows with Dr. Koch NSTEMI (non-ST elevated myocardial infarction) ? pt denies states she never had an OR ? Orthopnea ongoing for many years per patient; denies change or worsening Osteoarthritis Osteopenia Overactive bladder Pulmonary hypertension Trochanteric bursitis of right hip Urinary frequency Patient denies h/o stroke, seizures, DM, blood clots/DVTs or blood transfusions. Exercise / Class Metabolic Activity III < 4 Walking/Shop/Light housework (denies chest discomfort or shortness of breath with usual activities) Past Family History Family History Unknown Aortic aneurysm Other No family history of adverse response to anesthesia Past Surgical History Surgical History (Updated 12/31/23 @ 14:21 by Ann Pantoja PA-C) History of breast biopsy History of cholecystectomy History of colonoscopy History of left knee replacement History of lumpectomy of left breast (02/22/17) Left partial mastectomy with SLNB 02/22/17 Dr. Arbutina History of tonsillectomy and adenoidectomy History of total right knee replacement (TKR) 01/2021 @ [facility] Past Anesthesia History No Family Hx of Anesthesia Complications and Other (procaine reaction) History of PONV No Hx of PONV and Hx of Motion Sickness Social History Smoking Status: Never smoker Do You Dip or Chew Tobacco: No Hx Alcohol Use: No Hx Substance Use: No substance use type: does not use Review of Systems Patient denies chest pain, dyspnea on exertion, snoring, witnessed apneas, fever, chills, cough, wheezing, or palpitations. Physical Exam Vital Signs Vitals BP 103/60 P 59 TEMP 98.1 SP02 96% on RA RESP 18 Physical Patient resting comfortably in chair in no acute distress, alert and oriented, responding appropriately throughout visit Full cervical extension range of motion without pain TMD 3.5 finger breadths Mallampati Score 2 Dentition: several caps/crowns and one implant, denies chipped or loose teeth, or bridges Lungs: normal respiratory effort. Good air movement, clear throughout to auscultation, no adventitious breath sounds Cardiac: regular rate and rhythm, no murmurs noted Carotid arteries: negative bruit bilat Lab Results Anesthesia Preop Results Results Anesthesia Widget: WBC 5.28 K/ul (4.8-10.8) 12/31/23 Hgb 11.3 g/dl (12.0-16.0) L 12/31/23 Hct 34.4 % (37.0-47.0) L 12/31/23 Plt 258 K/uL (130-400) 12/31/23 Na 140 mmol/L (136-145) 12/31/23 K 3.5 mmol/L (3.5-5.1) 12/31/23 Cl 106 mmol/L (98-107) 12/31/23 CO2 24 mmol/L (21-32) 12/31/23 BUN 31 mg/dl (6-23) H 12/31/23 Creat 1.31 mg/dl (0.6-1.2) H 12/31/23 Glucose Level 118 mg/dl (70-99(Fasting)) H 12/31/23 PT 11.4 Seconds (9.0-12.0) 12/31/23 PTT 29 Seconds (21-31) 12/31/23 INR 1.1 (0.9-1.1) 12/31/23 TSH 0.296 uIu/ml (0.300-4.500) L 11/22/23 Free T4 1.67 ng/dl (0.61-1.60) H 11/22/23 Blood Type O Positive 12/31/23 Antibody Screen NEGATIVE 12/31/23 Testing Electrocardiogram Date: 12/27/23 NSR, rate 78 bpm Cannot rule out anterior infarct, age undetermined Marked ST abnormality, possible inferolateral subendocardial injury Chest X-Ray Date: 12/27/23 *1view* 1. Cardiomegaly with no active disease in the chest. 2. A 1.4 cm indeterminate nodular density projects in the left upper lung. This may be artifactual. A chest CT is recommended for further assessment and to exclude underlying pulmonary lesion. Echocardiogram Date: 10/28/23 EF 65-70% No LV regional wall motion abnormalities Moderate cLVH Grade II diastolic dysfunction Stress Test Date: 01/22/19 MPHR 87% The ST segment changes following exercise meet diagnostic criteria for ischemia. However, the specificity is diminished by the baseline ST segment abnormalities. Resting echocardiogram with normal LV systolic function. Moderate cLVH. Mild RVH. Mild LA dilatation. No significant valvular abnormalities. METS 7 EF 65-70% Mild RVH
[~2024-03-09 05:39] MED LIST changes: -ACETAMINOPHEN 500 MG TAB PO SCH; -BUPIVACAINE 0.5 % 5 MG/1 ML PF 10ML VIAL ONE; -BUPIVACAINE LIPOSOME/PF 266 MG, BUPIVACAINE/EPINEPHRINE 50 ML, SODIUM CHLORIDE 0.9% 30 ... INFIL SCH; -FAMOTIDINE 20 MG TAB PO SCH; -GABAPENTIN 300 MG CAP PO SCH; +LR 15ML/HR IV SCH; -LR 500ML BOLUS, THEN 15ML/HR IV SCH; -ROPIVACAINE 0.5% 5 MG/ML 30 ML VIAL ONE; -TRANEXAMIC ACID 1,000 MG **IV Intra-op IV SCH
--- OUTSIDE RECORDS SUMMARY | 2024-03-09 05:45 | External Medical Summary | Continuity of Care Document ---
Author Name Unknown Organization [id number] Address [address] [place] [phone] Care Team Providers Care Major Sales Associate Name Role Phone Noemi Frances Primary Care Physician [phone] [id number] Date[facility]): [facility] - 03/02/24 [facility] 0 [facility] [address] [facility] [address] [place] [id number] [place] [phone] Encounter Diagnosis Hallux valgus of left foot(Discharge Diagnosis) - 03/02/24 Left foot pain(Discharge Diagnosis) - 03/02/24 Discharge Disposition: Home or Self Care Attending Physician: CHARI Frances Christina L Allergies, Adverse Reactions, Alerts Substance Criticality Severity Reaction Reaction Severity Status Novocain numb for a coup le of days Active Adhesive bandage n/a Act alvaro Latex rash Active NSAIDS (nonsteroidal anti-inflammatory agents) n/a Active Assessment and Plan Extracted from: Title:Follow Up Visit Author:CHARI Frances, Merline Quinn Date:03/02/24 1.Hallux valgus of left foot Discussed with patient today that because of her upcoming back surgery she is not eligible for injectionbut additionally her pain is veryminimalI encouraged her to continue her CBD topical creamas well as Tylenol arthritiscertainly if her pain gets extremely bad after her back surgery can consider an injectionbut recommend to defer at this time patient had no further questions or concernsmay call if she experiences worsening pain and needs an injection and otherwise will follow-up on an as-needed basis. I spent3 minute planning including prepping note and chart review. I spent 13 minute [id number] interaction with patient addressing issuesdiscussed in visit today. I spent 3 minute time in postop visitplanning including note finishing in depart process. Total time spent on patient visit 19 minutes. 2.Left foot pain Medications Allergy (Loratadine) Start: 01/07/24 7:59:00 AM EDT Start Date: 01/07/24 Status: Ordered amiodarone 200 mg oral tablet TAKE 1 TABLET BY MOUTH EVERY OTHER DAY Start Date: 01/07/24 Status: Ordered amoxicillin 500 mg oral capsule Start: 12/26/20 12:08:00 PM EDT, 4 cap, PO, As indicated, Disp# 12 cap, Refills: 3, one hour before dental and other procedures as directed Start Date: 12/26/20 Status: Ordered azelastine 137 mcg/inh (0.1%) nasal spray Start: 01/07/24 8:01:00 AM EDT Start Date: 01/07/24 Status: Ordered calcium carbonate 500 mg (200 mg elemental calcium) oral tablet, chewable Start: 12/26/20 12:09:00 PM EDT, 3 tab, PO, tid, PRN: as needed to control stomach acid Start Date: 12/26/20 Status: Ordered Chondroitin-Glucosamine oral tablet Start: 01/07/24 7:59:00 AM EDT Start Date: 01/07/24 Status: Ordered clindamycin 300 mg oral capsule TAKE 2 CAPSULES BY MOUTH 1 HOUR PRIOR TO APPOINTMENT Start Date: 01/07/24 Status: Ordered Eliquis 5 mg oral tablet TAKE 1 TABLET BY MOUTH TWICE A DAY Start Date: 01/07/24 Status: Ordered exemestane 25 mg oral tablet Start: 10/22/18 10:28:00 AM EDT, See Instructions, Disp# 30 tab, Refills: 3, take 1 tablet by mouth once daily, Pharmacy: [facility] Start Date: 10/22/18 Status: Ordered famotidine Start: 12/26/20 12:11:00 PM EDT Start Date: 12/26/20 Status: Ordered FLUoxetine Start: 12/26/20 12:10:00 PM EDT Start Date: 12/26/20 Status: Ordered fluticasone 50 mcg/inh nasal spray Start: 12/26/20 12:08:00 PM EDT, 1 spray, each nostril, Daily Start Date: 12/26/20 Status: Ordered furosemide 40 mg oral tablet Start: 01/07/24 7:57:00 AM EDT, as needed Start Date: 01/07/24 Status: Ordered hydrochlorothiazide-losartan 12.5 mg-50 mg oral tablet Start: 01/07/24 7:58:00 AM EDT Start Date: 01/07/24 Status: Ordered levothyroxine 100 mcg (0.1 mg) oral tablet TAKE 1 TABLET BY MOUTH EVERY DAY Start Date: 01/07/24 Status: Ordered melatonin Start: 12/26/20 12:09:00 PM EDT Start Date: 12/26/20 Status: Ordered Metoprolol Tartrate 50 mg oral tablet TAKE 1 TABLET BY MOUTH 2 TIMES A DAY Start Date: 01/07/24 Status: Ordered multivitamin Start: 12/26/20 12:09:00 PM EDT, 1 tab, PO, Daily Start Date: 12/26/20 Status: Ordered Mcgregor-3 oral capsule Start: 12/26/20 12:09:00 PM EDT Start Date: 12/26/20 Status: Ordered Probiotic Formula Start: 12/26/20 12:09:00 PM EDT Start Date: 12/26/20 Status: Ordered simvastatin 20 mg oral tablet Start: 12/26/20 12:10:00 PM EDT, 1 tab, PO, qhs Start Date: 12/26/20 Status: Ordered Tylenol 500 mg oral tablet Start: 12/26/20 12:09:00 PM EDT, 2 tab, PO, q6h, PRN: as needed for pain Start Date: 12/26/20 Status: Ordered Vitamin B12 Start: 12/26/20 12:09:00 PM EDT Start Date: 12/26/20 Status: Ordered Vitamin D3 Start: 01/07/24 7:59:00 AM EDT Start Date: 01/07/24 Status: Ordered Mental Status 03/02/24 Barriers to Learning one year None evide nt Mandatory Health Literacy Documentation Yes Health Literacy Communication Barriers N ever Primary Language Maltese Problem List Condition Confirmation Course Effective Dates Status H ealth Status Informant Abnormal EKG Confirmed Active Left foot pain Confirmed Active Chronic GERD Confirmed Active Hallux valgus of left foot Confirmed Active Hyperlipidemia Confirmed Active HTN (hypertension) Confirmed Active Apical variant hypertrophic cardiomyopathy Confirmed Active Hypothyroid Confirmed Active Bilateral shoulder tendinopathy. Confirmed Active LVH (left ventricular hypertrophy) Confirmed Active Back pain Confirmed Active Breast cancer Confirmed Active Osteoarthritis Confirmed Active Primary osteoarthritis of right knee Confirmed Active Diagnosis Diagnosis Type Effective Dates Health Status Cl inical Service Informant Hallux valgus of left foot Discharge Diagnosis 03/02/24 Non-Specified Left foot pain Discharge Diagnosis 03/02/24 Non-Specified Procedures Procedure Date Related Diagnosis Body Site Status DEXA (dual energy X-ray phot on absorptiometry) scan of lateral spine 1 03/13/18 Completed Injection of knee-Right 02/07/18 C ompleted Gallbladder Completed Knee replacement Complete d Lumpectomy of breast Comp leted Tonsillectomy Completed -07.22 Social History Social History Type Response Smoking Status Never smoked cigaret bryson Sex Female Sex Representation Female (finding) Ortho Outpt Note * CHARI Frances Christina L: PERFORM Event Display: Ortho Outpt Note Authored Date: [id number] Chief Complaint left foot follow-up Primary Care Provider CHARI Frances Christina L Subjective Patient is a very pleasant 83-year-old female presenting today for follow-up evaluationlast seen January 07, 2024. -Had last visit I discussed that I felt patient would benefit from an ultrasound-guided injection for the large bone spurto reduce the swelling around the arthritic joint, I discussed this may potentially help limit her pain and help with her ambulation. She noted to me that she was scheduled for back surgerywhich was scheduled for January night tentativelyshe was having shoulder issues and I provided her with a prescription to see orthopedicsshe follows up today. -Ultrasound showed arthritis at the first and second tarsometatarsal joints and navicular cuneiformjointpatient noted her pain was not that uncomfortable and she was using CBD oil and Tylenol arthritisand opted to not have her injection. -Patient noted to me that she unfortunately did not have her surgery in January it was canceled last minuteshe will be having her surgery in the nextday or 2she did not receive her injection she notes that her pain is tolerable and her left footshe does not have any new concerns today. Review of Systems Anxiety and depression Objective Physical Exam Problem focused left foot: X-rays obtained December 03 of this year showing some osteopenic bonewith a hallux valgus deformity ofthe left footas well as moderate arthritis of the first tarsometatarsal jointas well asnavicular cuneiform joint. Dorsalis pedis pulse palpable2 out of 4, posterior tibial pulse palpable 2 out of 4, capillary refill time less than 3 seconds,skin turgor is goodto all digits of theleft foot with pedal hairpresent. Gross sensation is intact all digits of the left foot. There are no open wounds or lesions. History of arthritis at first and second tarsometatarsal joint which was also seenon ultrasound, arthritis navicular cuneiform joint also seen on ultrasound. Severe hallux valgus deformity nonreduciblefor the most part little tendernesscontinue conservative treatment. Assessment/Plan 1.Hallux valgus of left foot Discussed with patient today that because of her upcoming back surgery she is not eligible for injectionbut additionally her pain is veryminimalI encouraged her to continue her CBD topical creamas well as Tylenol arthritiscertainly if her pain gets extremely bad after her back surgery can consider an injectionbut recommend to defer at this time patient had no further questions or concernsmay call if she experiences worsening pain and needs an injection and otherwise will follow-up on an as-needed basis. I spent3 minute planning including prepping note and chart review. I spent 13 minute rytj-qj-fakx interaction with patient addressing issuesdiscussed in visit today. I spent 3 minute time in postop visitplanning including note finishing in depart process. Total time spent on patient visit 19 minutes. 2.Left foot pain Electronic Signature on File Electronically Reviewed/Signed by: Noemi Frances DPM Author Signature Dt/Tm:03/02/2024 10:31 AM Division of Sports Medicine CLR Patient Care team information Care Team Personnel Name: CHARI Frances Christina L Position: Physician - Podiatry Member Role: Primary Care Provider Address: [address] Care Team Related Persons Name: LUCAS RODRIGUEZ
--- OUTSIDE RECORDS SUMMARY | 2024-03-09 05:45 | External Medical Summary | Continuity of Care Document ---
Author Name Unknown Organization [facility] [id number] Address [address] [place] [address] [id number] Care Team Providers Care Hide Sorter Name Role Phone Noemi Frances Primary Care Physician [phone] [facility]counter [facility] [id number] Date(s): 02/17/24 - 02/17/24 [facility] [address] [facility] [address] [facility] [address] [place] [id number] Encounter Diagnosis Lumbago with sciatica, left side(Discharge Diagnosis) - 02/17/24 Discharge Disposition: Home or Self Care Attending Physician: MD Nair Wayne J Referring Physician: MD Nair Wayne J Allergies, Adverse Reactions, Alerts Substance Criticality Severity Reaction Reaction Severity Status Novocain numb for a coup le of days Active Adhesive bandage n/a Act alvaro Latex rash Active NSAIDS (nonsteroidal anti-inflammatory agents) n/a Active Medications Allergy (Loratadine) Start: 01/07/24 7:59:00 AM [...] 1 tablet by mouth once daily, Pharmacy: [facility] Start Date: 10/22/18 Status: Ordered famotidine [...] PO, Daily Start Date: 12/26/20 Status: Ordered Kismet-3 oral capsule Start: 12/26/20 12:09:00 PM EDT [...] Start Date: 01/07/24 Status: Ordered Mental Status 02/17/24 Barriers to Learning one year None evide nt Mandatory Health Literacy Documentation Yes Health Literacy Communication Barriers N ever Primary Language [place] Problem List Condition Confirmation Course Effective Dates [...] Dates Health Status Cl inical Service Informant Lumbago with sciatica, left side Discharge Diagnosis 02/17/24 Procedures Procedure Date Related Diagnosis Body Site Status DEXA (dual energy X-ray phot on absorptiometry) scan of lateral spine 1 03/13/18 Completed Injection of knee-Right 02/07/18 C ompleted Gallbladder Completed Knee replacement Complete d Lumpectomy of breast Comp leted Tonsillectomy Completed 1-1.8 Social History Social History Type Response Smoking Status Never smoked cigaret bryson Sex Female Sex Representation Female (finding) Ortho Outpt Note * Angelina Stiles: PERFORM, MODIFY Event Display: Ortho Outpt Note Authored Date: [id number] Name:EVANS DASILVA Patient Number:[id number] :[id number] Date of Service:02/17/2024 CHIEF COMPLAINT: Left hip pain HPI: Angie Richter presents today forevaluation of left hip pain. Patient reports she has had ongoing back pain for years and is currently scheduled for surgery butthis has been scheduled and cancelled 3 times.. In the meantime she has developed more pain of the the posterior hip. She is taking Tramadol as prescribed by her PCP for sleep. PHYSICAL EXAM: Focus on the left lower extremity: Femoral and sciatic nerve function intact. Hip joint ROM is supple and pain free Good strength IMPRESSION: Severe spinal stenosis and L4-L5 spondylolisthesis PLAN: Continue with pain management as prescribed by PCP and Tylenol Recommend getting her back addressed first Follow-up in 6 months with hip x-rays ATTESTATION: IAngelina, scribing for and in the presence of, Jeff Nair, on this date,02/17/2024 14:48:54. Electronic Signature on File Electronically Reviewed/Signed by: Angelina Stiles Author Signature Dt/Tm:02/17/2024 03:22 PM Electronically Reviewed/Signed by: Jeff Nair MD Cosigner Signature Dt/Tm: 02/17/2024 03:33 PM Plasterer Helper for Clinical Affairs, [facility] Dave Professor in Orthopaedics Baby Formula Mixer, [facility] Patient Care team information Care Team Personnel Name: CHARI Frances Christina L Position: Physician - Podiatry Member Role: Primary Care Provider Address: [address] [facility] [address] [place] [address] Care Team Related Persons Name: LUCAS RODRIGUEZ
[2024-03-09] MEDS: LR 60ML/HR IV SCH (06:34)
[2024-03-09] MEDS: LR 15ML/HR IV SCH (06:34)
[2024-03-09] MEDS ORDERED: fentaNYL citrate PF 100 MCG/2 ML VIAL ONE ×2 (06:50→10:32)
[2024-03-09] MEDS ORDERED: ATROPINE SULFATE 0.1 MG/ML 10ML SYR IV PRN (07:08)
[2024-03-09] MEDS ORDERED: PROMETHAZINE HCL 6.25 MG in SODIUM CHLORIDE 0.9% 50 ML IV PRN (07:08)
[2024-03-09] MEDS ORDERED: ONDANSETRON INJ 2 MG/ML 2 ML VIAL IV PRN (07:08)
--- NOTE | 2024-03-09 07:13 | History & Physical Bridge Note ---
Date of Service March 09, 2024 History & Physical Bridge Note I have examined the patient, reviewed the History & Physical and in the interval since the performance of the History & Physical I have noted the following changes of clinical significance: no changes noted
--- NOTE | 2024-03-09 07:15 | History & Physical Report ---
Date of Service March 09, 2024 History of Present Illness Primary Care Provider: Aiden Gilbert MD 83-year-old female referred here for combination of low back and lower extremity symptoms. Patient states that she has had symptoms now for about a year or so, the pain starts in the lower lumbar spine more in the left but across the lumbosacral region. From there it will radiate down the lateral aspect of her left thigh into the lateral aspect of her left calf, similar but not as much on the right side. She is status post 2 prior injections, 1 in July and 1 in September with some improvement for about a month, these were performed in [facility] as she has a second home in the [facility], but the symptoms have slowly returned, she is here for evaluation. Exam reveals her to indicate pain lumbosacral spine, she has the ability to raise up on toes and heels without any obvious weakness. While sitting she had 1/4 knee reflexes absent ankle reflexes, straight leg raise was relatively unremarkable outside of some low back pain and some stretching type sensation but not necessarily as strong reproduction of her lower extremity symptoms. Radiographs taken from [facility], unknown whether they are upright from May 09, 2023 reveals degenerative changes involving lumbar spine, there is grade 1 bordering grade 2 degenerative spinal listhesis at L4-5 with additional lumbosacral disc degeneration. MRI report from [place] reveals significant degenerative changes involving the lower lumbar levels primarily. Impression: Degenerative spinal listhesis with most likely lumbar stenosis and radiculopathy left greater than right. Plan: L4-5 lateral cage and fusion, posterior instrumentation. Allergies Allergy/AdvReac Type Severity Reaction Status Date / Time NSAIDS (Non-Steroidal Allergy Severe RENAL Verified 03/09/24 06:13 Anti-Inflamma FAILURE adhesive Allergy Mild RASH Verified 03/09/24 06:13 latex Allergy Mild RASH Verified 03/09/24 06:13 procaine Allergy Mild prolonged Verified 03/09/24 06:13 effect amoxicillin AdvReac Intermediate Diarrhea Verified 03/09/24 06:13 orange AdvReac Intermediate "not Verified 03/09/24 06:13 supposed to take any citrus foods" orange juice AdvReac Intermediate "not Verified 03/09/24 06:13 supposed to take any citrus foods" pepper (genus Capsicum) AdvReac Intermediate "not Verified 03/09/24 06:13 supposed to take any due to an overactive bladder" sesame seed AdvReac Intermediate "not Verified 03/09/24 06:13 supposed to take any due to an overactive bladder" Home Medications Medication Instructions Recorded Confirmed Type cyanocobalamin (vitamin B-12) 500 1,000 mcg PO QDL 12/18/19 03/09/24 History mcg tablet rqinsass-yoyh-ggqc 8 mg-folic 400 1 tab PO QDL 12/20/20 03/09/24 History mcg-K 50 mcg-lutein 300 mcg tablet (Centrum Silver Women) clindamycin HCl 300 mg capsule 600 mg PO UD PRN prior to dental 05/18/21 03/09/24 History procedure loratadine 10 mg tablet (Claritin) 10 mg PO QAM 04/29/23 03/09/24 History omega-3 fatty acids 1,000 mg 2,000 mg PO QDL 04/29/23 03/09/24 History capsule Saccharomyces boulardii 50 mg 50 mg PO BID 05/10/23 03/09/24 History capsule exemestane 25 mg tablet 25 mg PO QDL 05/10/23 03/09/24 History fkiybuzqcjx-zvu-revfrdepg-vitC 1 cap PO QDL 05/10/23 03/09/24 History capsule (Glucosamine Complex-MSM capsule) apixaban 5 mg tablet (Eliquis) 5 mg PO BID #180 tabs 05/20/23 03/09/24 Rx acetaminophen 650 mg 650 mg PO UD PRN Pain 12/04/23 03/09/24 History tablet,extended release (Tylenol Arthritis Pain) Cbd Cream 1 dose topical BID 12/25/23 03/09/24 History cholecalciferol (vitamin D3) 50 1,000 mcg PO QDL 12/25/23 03/09/24 History mcg (2,000 unit) capsule (Vitamin D3) levothyroxine 100 mcg tablet 100 mcg PO QAM 12/25/23 03/09/24 History losartan 50 mg-hydrochlorothiazide 1 tab PO QAM 12/25/23 03/09/24 History 12.5 mg tablet potassium chloride 20 mEq 20 meq PO DAILY PRN when taking 12/25/23 03/09/24 History tablet,extended release lasix simvastatin 20 mg tablet 20 mg PO HS 12/25/23 03/09/24 History vit C 250 mg-vit E 90 mg-zinc 40 1 tab PO BID 12/25/23 03/09/24 History mg-copper 1 ti-svlnyv-pbnmwg capsule (PreserVision AREDS-2) docusate sodium 50 mg/5 mL oral 50 mg PO DAILY PRN Constipation 12/31/23 03/09/24 History liquid furosemide 40 mg tablet 40 mg PO DAILY PRN edema in feet 01/13/24 03/09/24 Rx #90 tabs tramadol 50 mg tablet 50 mg PO BID PRN pain #30 tabs 01/28/24 03/09/24 Rx metoprolol succinate 100 mg 100 mg PO DAILY #90 tabs 02/03/24 03/09/24 Rx tablet,extended release 24 hr amiodarone 200 mg tablet 200 mg PO DAILY #90 tabs 02/10/24 03/09/24 Rx Past Med/Surg History Problem List Heart failure with recovered ejection fraction (HFrecEF) Paroxysmal atrial fibrillation Lumbar stenosis with neurogenic claudication Low back pain radiating to left lower extremity Degenerative spondylolisthesis HFrEF (heart failure with reduced ejection fraction) Cardiomyopathy Heart failure with mid-range ejection fraction Left hip pain Rotator cuff arthropathy History of left breast cancer Rotator cuff arthropathy of both shoulders Lumbar spondylosis Anemia (Acute) Dyslipidemia Urinary frequency Bunion, left foot Degenerative joint disease of left midfoot Degenerative joint disease of right midfoot Trigger finger of right hand Osteopenia (Acute) Insomnia Hypothyroidism Hypertension Degenerative joint disease, multiple joints on both sides of body Anxiety Allergic rhinitis (Acute) Medical History History of transesophageal echocardiography (ULI) (04/2023) Closed fracture of right proximal humerus (01/15/23) fell out of bed Renal angiomyolipoma GERD (gastroesophageal reflux disease) Well controlled and stable Depression Malignant neoplasm of lower-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) Orthopnea ongoing for many years per patient; denies change or worsening Claustrophobia Difficult intravenous access Pulmonary hypertension NSTEMI (non-ST elevated myocardial infarction) Type II demand NSTEMI 04/2023 in the setting of new A-fib RVR Urinary frequency Osteopenia Lumbar stenosis Hypertension Dyslipidemia Lumbar back pain Degenerative spondylolisthesis Degenerative joint disease involving multiple joints Cardiomyopathy History of anxiety no meds currently Angiomyolipoma of both kidneys Allergic rhinitis History of cardioversion 04/2023 @ [facility] Atrial fibrillation diagnosed 04/2023--follows with Dr. Koch--had cardioversion 12/27/23--on eliquis/metoprolol Lumbar radiculopathy, right Duodenal ulcer hx GI bleeding hx of 2020 Osteoarthritis Overactive bladder Hypothyroidism History of breast cancer Dx 2017 left breast; h/o lumpectomy + radiation-no limb restriction LVH (left ventricular hypertrophy) follows with Dr. Koch Surgical History History of total right knee replacement (TKR) 01/2021 @ [facility] History of left knee replacement History of colonoscopy History of lumpectomy of left breast (02/22/17) Left partial mastectomy with SLNB 02/22/17 Dr. Vora History of cholecystectomy History of tonsillectomy and adenoidectomy History of breast biopsy Family History Unknown Aortic aneurysm Other No family history of adverse response to anesthesia Social History Smoking Status: Never smoker Second Hand Exposure: No; Do You Dip or Chew Tobacco: No; Tobacco Cessation Education Requested by Patient: No Hx Alcohol Use: No Hx Substance Use: No Preferred Language: Uzbek Communication Ability: Effective Visual Impairment: Partially Limited Home Restoration Service Supervisor Required: No Beliefs That Will Affect Care: None marital status: / Current Living Situation Comment: [facility] current occupational status: retired How many Children do You have: 2 Other Information That Helps Us Care for You: No Feels Safe at Home: Yes Safety Concerns: Feels Safe At This Time Assistive Devices: Cane and Walker Results & Data Results & Data Vital Signs (Past 12 Hours) Vital Signs Temp Pulse Resp BP Pulse Ox O2 Del Method 03/09/24 06:16 Room Air 03/09/24 06:14 36.4 C L 50 L 20 175/83 H 94 Room Air
[2024-03-09] MEDS: ceFAZolin 2000MG 2,000 MG/15 ML SYR IV SCH (07:45)
[2024-03-09] MEDS ORDERED: GLYCOPYRROLATE 0.2 MG/ML VIAL ONE ×2 (08:18→08:33)
[2024-03-09] MEDS ORDERED: diphenhydrAMINE 50 MG/ML VIAL ONE (08:18)
[2024-03-09] MEDS ORDERED: ONDANSETRON INJ 2 MG/ML 2 ML VIAL ONE (08:18)
[2024-03-09] MEDS ORDERED: LIDOCAINE 2% 2 ML VIAL/AMP(20MG/ML) INFIL ONE (08:18)
[2024-03-09] MEDS ORDERED: NEOSTIGMINE METHYLSULFATE 1 MG/ML 10ML VIAL ONE (08:18)
[2024-03-09] MEDS ORDERED: DEXAMETHASONE SOD INJ 4 MG/ML VIAL ONE (08:18)
[2024-03-09] MEDS ORDERED: PROPOFOL IV EMULSION 10 MG/ML 20 ML VIAL IV ONE (08:18)
[2024-03-09] MEDS ORDERED: ePHEDrine sulfate 50 MG/5 ML SYR ONE (08:28)
[2024-03-09] MEDS: VANCOMYCIN HCL 1000MG/20ML VIAL ONE (08:54)
[2024-03-09] MEDS: THROMBIN 5000 UNITS KIT ONE (10:53)
[2024-03-09] MEDS: GELATIN SPONGE 12-7MM ONE (10:53)
[2024-03-09] MEDS: BUPIVACAINE/EPINEPHRINE 0.5% MPF 1:200,000 30 ML VIAL ONE (11:13)
[2024-03-09] MEDS ORDERED: ceFAZolin 330 MG/ML 1 GM VIAL ONE (11:30)
[2024-03-09] MEDS ORDERED: LORazepam 0.5 MG TAB PO PRN (11:54)
[2024-03-09] MEDS ORDERED: FAMOTIDINE 20 MG TAB PO PRN (11:54)
[2024-03-09] MEDS ORDERED: MAGNESIUM HYDROXIDE SUSP 30 ML UDC PO PRN (11:54)
[2024-03-09] MEDS ORDERED: LORazepam 0.5 MG in SYRINGE 0.25 ML IV PRN (11:54)
[2024-03-09] MEDS ORDERED: NALOXONE HCL 0.4 MG/1 ML VIAL/CARP IV PRN (11:54)
[2024-03-09] MEDS ORDERED: hydrOXYzine HCl 25 MG TAB PO PRN (11:54)
[2024-03-09] MEDS ORDERED: ACETAMINOPHEN 1,000 MG/100 ML VIAL IV PRN (11:54)
[2024-03-09] MEDS ORDERED: diphenhydrAMINE Capsule 25 MG CAP PO PRN (11:54)
[2024-03-09] MEDS ORDERED: PROMETHAZINE 12.5 MG/50.5 ML BAG IV PRN (11:54)
[2024-03-09] MEDS ORDERED: ONDANSETRON 4 MG OD TAB PO PRN (11:54)
[2024-03-09] MEDS ORDERED: DO NOT ADMINISTER FLU VACCINE PRN (11:54)
[2024-03-09] MEDS ORDERED: bisacodyL 10 MG SUPP PR PRN (11:54)
[2024-03-09] MEDS ORDERED: DO NOT ADMINISTER PNEUMOCOCCAL VACCINE PRN (11:54)
[2024-03-09] MEDS ORDERED: SOD PHOSPHATE/SOD BIPHOSPHATE ENEMA 132 ML BTL PR PRN (11:54)
--- NOTE | 2024-03-09 11:54 | Post Operative Brief Note ---
PG Immediate Post Op with CF Date of Surgery March 09, 2024 Pre & Post Diagnosis Operation Date: 03/09/24 07:15 Pre-Op Diagnosis: 1. Lumbar stenosis and neurogenic claudication 2. Lower back pain radiating to left lower extremity 3. Degenerative spondylolisthesis Post-Op Diagnosis: 1. Lumbar stenosis and neurogenic claudication 2. Lower back pain radiating to left lower extremity 3. Degenerative spondylolisthesis I identified the patient and participated in the time-out.: Yes Procedure Operation Date: 03/09/24 07:15 Actual Procedures p L4-L5 Lateral Lumbar Interbody Fusion with Posterior Instrumentation with Spinal Cord Monitoring(Not Applicable) - Tom Acuña MD Surgeon Tom Acuña MD Manager Product Support none Estimated Blood Loss 20 Findings Consistent with Post-Op Diagnosis Specimens Specimen Description: No specimen per surgeon Drains Garzon Catheter (Inserted before procedure start by Wicho Israel RN; 10cc in balloon; leg strap applied; clear, yellow urine returned)
[2024-03-09] MEDS: HYDROmorphone INJ 1 MG/ML SYRINGE IV PRN (11:56)
[2024-03-09] MEDS: HYDROmorphone INJ 1 MG/ML SYRINGE ONE (12:23)
[2024-03-09] MEDS ORDERED: HYDROmorphone INJ 1 MG/ML SYRINGE IV PRN (12:25)
--- NOTE | 2024-03-09 13:28 | Anesthesiology Progress Note ---
Date of Service March 09, 2024 Anesthesia Post Procedure Vital Signs Vital Signs: Temp Pulse Resp BP Pulse Ox O2 Del Method O2 Flow Rate 03/09/24 13:20 65 13 124/86 99 Nasal Cannula 2 03/09/24 13:10 72 14 180/76 H 100 Nasal Cannula 2 03/09/24 13:00 58 L 12 162/68 H 100 Nasal Cannula 2 03/09/24 12:50 67 12 184/81 H 97 Nasal Cannula 2 03/09/24 12:40 67 15 187/61 H 100 Nasal Cannula 2 03/09/24 12:30 68 15 135/83 100 Nasal Cannula 2 03/09/24 12:20 64 12 164/79 H 99 Oxymask 3 03/09/24 12:10 67 12 175/74 H 97 Oxymask 3 03/09/24 12:00 65 12 174/56 H 100 Oxymask 7 03/09/24 11:50 68 15 177/75 H 100 Oxymask 7 03/09/24 11:44 36.0 C L 69 18 175/76 H 100 Oxymask 7 03/09/24 06:16 Room Air 03/09/24 06:14 36.4 C L 50 L 20 175/83 H 94 Room Air Pain Intensity Back: Pain Intensity: 9 Transfer of Care Handoff Completed per policy Notes Mental Status: alert / awake / arousable Patient Amnestic to Procedure: Yes Nausea / Vomiting: adequately controlled Pain: adequately controlled Airway Patency, RR, SpO2: stable & adequate BP & HR: stable & adequate Hydration State: stable & adequate Anesthetic Complications: no major complications apparent
[2024-03-09] MEDS ORDERED: NON-FORMULARY MEDICATION (Acetaminophen [Tylenol Arthritis Pain] 650 mg tablet extended re PO PRN (13:49)
[2024-03-09] MEDS: LACTATED RINGER'S 1,000 ML IV SCH (14:43)
[2024-03-09] MEDS: oxyCODONE/ACETAMINOPHEN 5mg/325mg TAB PO PRN (14:49)
--- NOTE | 2024-03-09 14:59 | Hospitalist Consultation ---
Date of Consultation March 09, 2024 Assessment & Plan (1) Lumbar stenosis with neurogenic claudication: S/p L4-L5 lateral lumbar interbody fusion with Dr. Acuña on 03/09 [place] lumbar spine x-ray revealed hardware intact Perioperative antibiotics, DVT PPx, and pain control per the primary team (2) SOB (shortness of breath): Patient endorses mild SOB at rest at time of consult, but does attribute this to anxiety SpO2 100% on RA; nontachycardic Will defer CXR at this time, with lower threshold to obtain CXR if patient's shortness of breath worsens or she begins coughing In the setting of heart failure, will hold further fluids for now Added on a.m. CBC, BMP (3) HFrEF (heart failure with reduced ejection fraction): Last echocardiogram on 05/10/2023 revealed LVEF at 40-45% with global hypokinesis and severely dilated left atrium Daily weights Strict I&O monitoring (4) Paroxysmal atrial fibrillation: Rate controlled Continue amiodarone, metoprolol Patient reports she has not taken her Eliquis 3 days prior to surgery Can restart Eliquis at the discretion of primary team (5) Hypertension: Continue metoprolol Hold losartan/HCTZ the morning of 03/10 (6) Hypothyroidism: Continue levothyroxine (7) History of breast cancer: Continue exemestane Plan Agree with current medical management with changes as noted above. Disposition: MedSurg Clear liquid diet for now, and advance to low sodium, AHA diet as tolerated VTE PPx: SCDs/teds Thank you for allowing us to participate in the care of this patient, please reach out with any questions or concerns; we will continue to follow. Supervising Physician Co-Signing Physician Notes I personally saw and examined the patient. I independently reviewed the labs, EKG, imaging, problem list, medication list, past medical history and family history. I verified all feldman points and agree with Vineet Granda PA-C with the following exceptions and/or additions: 83-year-old female postop day 0 L4-L5 lumbar interbody fusion with posterior instrumentation performed by Dr. Acuña earlier today. She reports the main symptom prior to operation was central back pain. No radiation down the legs. O/E HS RRR, systolic murmurs loudest LUSB, Chest CTAB, Abdo SNT, PT/DP pulses intact with normal sensation and platar/dorsiflexion ankle b/l equal A/P VTE / pain / bowel regimen per primary ortho spine team HFrEF - appears euvolemic currently, stopped IV fluids, shortness of breath khoury bjectively but objectively appears fine Paroxysmal atrial fibrillation - currently with RRR, continue amiodarone, restart Eliquis when ok from surgical perspective Otherwise as above History of Present Illness Reason for Consultation: Medical management Requesting Physician: Tom Acuña MD Attending Physician: Tom Acuña MD History of Present Illness Kari is an 83-year-old female PMH of anxiety, HTN, hypothyroidism, insomnia, osteopenia, HFrEF, cardiomyopathy, paroxysmal atrial fibrillation (on Eliquis), and lumbar stenosis with neurogenic claudication. She presented on 03/09 for a L4-L5 lateral lumbar interbody fusion with Dr. Acuña. Per review of brief operative note, EBL was listed as 20 cc, and findings were consistent with postop diagnosis. Patient reports she is still having 9/10 pain in her lumbar spine at time of consult. Pain is worse on the left side compared to the right, and there is some radiation into the left hip, but not down the legs. No radiation up the spine or into the stomach. She characterizes it as a constant, stabbing pain, and reports she has difficulty with movements. Sitting up does help to alleviate the pain somewhat. Additionally, she does endorse some shortness of breath, but believes it is secondary to her anxiety. She reports she just received pain medicine, and feels a little bit "loopy". No suppleme ntal oxygen at baseline. No CPAP at night. Patient reports she has been drinking water well since the surgery, but has not been up to use the bathroom yet. Patient manages her own medicine at home, and reports that she last took Eliquis 3 days prior to surgery. In regard to Lasix, she reports that she last took it 4 days prior to surgery, and that she stopped taking it as she had been getting up every hour to pee at night. Patient denies smoking, tobacco use, or recent alcohol use. Patient is mildly hypertensive at 149/80 at time of consult; SpO2 99% on 2L NC. ROS: Patient endorses lower back pain, left hip pain, and SOB (which patient attributes to anxiety/stress). Patient denies fever, chills, sweating, dizziness, lightheadedness, headache, chest pain, chest palpitations, cough, pleuritic CP, sore throat, abdominal pain, nausea, vomiting, saddle anesthesia, or numbness or tingling in the legs. Allergies Allergy/AdvReac Type Severity Reaction Status Date / Time NSAIDS (Non-Steroidal Allergy Severe RENAL Verified 03/09/24 06:13 Anti-Inflamma FAILURE adhesive Allergy Mild RASH Verified 03/09/24 06:13 latex Allergy Mild RASH Verified 03/09/24 06:13 procaine Allergy Mild prolonged Verified 03/09/24 06:13 effect amoxicillin AdvReac Intermediate Diarrhea Verified 03/09/24 06:13 orange AdvReac Intermediate "not Verified 03/09/24 06:13 supposed to take any citrus foods" orange juice AdvReac Intermediate "not Verified 03/09/24 06:13 supposed to take any citrus foods" pepper (genus Capsicum) AdvReac Intermediate "not Verified 03/09/24 06:13 supposed to take any due to an overactive bladder" sesame seed AdvReac Intermediate "not Verified 03/09/24 06:13 supposed to take any due to an overactive bladder" Home Medications Medication Instructions Recorded Confirmed Type cyanocobalamin (vitamin B-12) 500 1,000 mcg PO QDL 12/18/19 03/09/24 History mcg tablet hdyfjvdd-bfpi-fzmg 8 mg-folic 400 1 tab PO QDL 12/20/20 03/09/24 History mcg-K 50 mcg-lutein 300 mcg tablet (Centrum Silver Women) clindamycin HCl 300 mg capsule 600 mg PO UD PRN prior to dental 05/18/21 03/09/24 History procedure loratadine 10 mg tablet (Claritin) 10 mg PO QAM 04/29/23 03/09/24 History omega-3 fatty acids 1,000 mg 2,000 mg PO QDL 04/29/23 03/09/24 History capsule Saccharomyces boulardii 50 mg 50 mg PO BID 05/10/23 03/09/24 History capsule exemestane 25 mg tablet 25 mg PO QDL 05/10/23 03/09/24 History kozmyrbhtsr-uxv-bovrxyghx-vitC 1 cap PO QDL 05/10/23 03/09/24 History capsule (Glucosamine Complex-MSM capsule) apixaban 5 mg tablet (Eliquis) 5 mg PO BID #180 tabs 05/20/23 03/09/24 Rx acetaminophen 650 mg 650 mg PO UD PRN Pain 12/04/23 03/09/24 History tablet,extended release (Tylenol Arthritis Pain) Cbd Cream 1 dose topical BID 12/25/23 03/09/24 History cholecalciferol (vitamin D3) 50 1,000 mcg PO QDL 12/25/23 03/09/24 History mcg (2,000 unit) capsule (Vitamin D3) levothyroxine 100 mcg tablet 100 mcg PO QAM 12/25/23 03/09/24 History losartan 50 mg-hydrochlorothiazide 1 tab PO QAM 12/25/23 03/09/24 History 12.5 mg tablet potassium chloride 20 mEq 20 meq PO DAILY PRN when taking 12/25/23 03/09/24 History tablet,extended release lasix simvastatin 20 mg tablet 20 mg PO HS 12/25/23 03/09/24 History vit C 250 mg-vit E 90 mg-zinc 40 1 tab PO BID 12/25/23 03/09/24 History mg-copper 1 rh-yvwkzm-beeorz capsule (PreserVision AREDS-2) docusate sodium 50 mg/5 mL oral 50 mg PO DAILY PRN Constipation 12/31/23 03/09/24 History liquid furosemide 40 mg tablet 40 mg PO DAILY PRN edema in feet 01/13/24 03/09/24 Rx #90 tabs tramadol 50 mg tablet 50 mg PO BID PRN pain #30 tabs 01/28/24 03/09/24 Rx metoprolol succinate 100 mg 100 mg PO DAILY #90 tabs 02/03/24 03/09/24 Rx tablet,extended release 24 hr amiodarone 200 mg tablet 200 mg PO DAILY #90 tabs 02/10/24 03/09/24 Rx Patient History Medical History (Updated 03/09/24 @ 16:10 by Vineet Granda PA-C) History of transesophageal echocardiography (ULI) (04/2023) Closed fracture of right proximal humerus (01/15/23) fell out of bed Renal angiomyolipoma GERD (gastroesophageal reflux disease) Well controlled and stable Depression Malignant neoplasm of lower-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) Orthopnea ongoing for many years per patient; denies change or worsening Claustrophobia Difficult intravenous access Pulmonary hypertension NSTEMI (non-ST elevated myocardial infarction) Type II demand NSTEMI 04/2023 in the setting of new A-fib RVR Urinary frequency Osteopenia Lumbar stenosis Hypertension Dyslipidemia Lumbar back pain Degenerative spondylolisthesis Degenerative joint disease involving multiple joints Cardiomyopathy History of anxiety no meds currently Angiomyolipoma of both kidneys Allergic rhinitis History of cardioversion 04/2023 @ [facility] Atrial fibrillation diagnosed 04/2023--follows with Dr. Koch--had cardioversion 12/27/23--on eliquis/metoprolol Lumbar radiculopathy, right Duodenal ulcer hx GI bleeding hx of 2020 Osteoarthritis Overactive bladder Hypothyroidism LVH (left ventricular hypertrophy) follows with Dr. Koch Surgical History History of total right knee replacement (TKR) 01/2021 @ [facility] History of left knee replacement History of colonoscopy History of lumpectomy of left breast (02/22/17) Left partial mastectomy with SLNB 02/22/17 Dr. 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: No Beliefs That Will Affect Care: None marital status: / Current Living Situation Comment: [facility] current occupational status: retired How many Children do You have: 2 Feels Safe at Home: Yes Assistive Devices: Walker Review of Systems Review of Systems: See HPI above Physical Exam Physical Exam: General: Moderate physical distress secondary to back pain; anxious; non-toxic appearing; frail appearing; cooperative; SpO2 99% on 2L NC HEENT: normocephalic, atraumatic; no scleral icterus; PERRLA; vision and hearing grossly intact Neck: supple; no lymphadenopathy; trachea midline Skin: warm, dry without signs of tenting; no cyanosis; no rashes, bruising, lesions, or erythema noted CV: chest wall NTP; RRR; S1/S2 normal; no murmurs/rubs/gallops; pulses intact and symmetric at radial, DP, and PT Lungs: no acute respiratory distress; symmetrical chest wall expansion; clear breath sounds across all lung montano w/o adventitious sounds; no wheezing ABD: Soft, NTP; BS present; no rebound/guarding; no distention Back: Surgical dressing without drainage or signs of infection on the lower back ; upper spine NTP, lower spine TTP bilaterally; left hip is TTP around surgical dressing MSK: no tics or fasciculations; no edema noted in the LEs b/l, nonerythematous (SCDs/teds in place); patient demonstrates ability to wiggle toes bilaterally, plantarflex/dorsiflex against resistance, and bend knees bilaterally without deficits Neuro: A&Ox3; normal mood and affect; fluent speech; no focal deficits; sensation grossly intact and symmetric in the LEs b/l assessed via light touch at the knees and the toes Results & Data Results & Data Vital Signs (Past 12 Hours) Vital Signs Temp Pulse Pulse Resp BP Pulse Ox O2 Del Method 03/09/24 14:47 36.1 C L 68 18 149/80 H 99 Nasal Cannula 03/09/24 14:18 36.6 C 65 16 164/79 H 100 Nasal Cannula 03/09/24 14:10 Nasal Cannula 03/09/24 13:50 36.1 C L 67 18 163/81 H 100 Nasal Cannula 03/09/24 13:40 61 19 172/72 H 95 Nasal Cannula 03/09/24 13:30 36.3 C L 68 17 164/81 H 96 Nasal Cannula 03/09/24 13:20 65 13 124/86 99 Nasal Cannula 03/09/24 13:10 72 14 180/76 H 100 Nasal Cannula 03/09/24 13:00 58 L 12 162/68 H 100 Nasal Cannula 03/09/24 12:50 67 12 184/81 H 97 Nasal Cannula 03/09/24 12:40 67 15 187/61 H 100 Nasal Cannula 03/09/24 12:30 68 15 135/83 100 Nasal Cannula 03/09/24 12:20 64 12 164/79 H 99 Oxymask 03/09/24 12:10 67 12 175/74 H 97 Oxymask 03/09/24 12:00 65 12 174/56 H 100 Oxymask 03/09/24 11:50 68 15 177/75 H 100 Oxymask 03/09/24 11:44 36.0 C L 69 18 175/76 H 100 Oxymask 03/09/24 06:16 Room Air 03/09/24 06:14 36.4 C L 50 L 20 175/83 H 94 Room Air O2 Flow Rate 03/09/24 14:47 2 03/09/24 14:18 2 03/09/24 14:10 2 03/09/24 13:50 2 03/09/24 13:40 2 03/09/24 13:30 2 03/09/24 13:20 2 03/09/24 13:10 2 03/09/24 13:00 2 03/09/24 12:50 2 03/09/24 12:40 2 03/09/24 12:30 2 03/09/24 12:20 3 03/09/24 12:10 3 03/09/24 12:00 7 03/09/24 11:50 7 03/09/24 11:44 7 03/09/24 06:16 03/09/24 06:14 Diagnostic Findings Lumbar Spine X-Ray 03/09/24 07:15 [place] lumbar spine 2-3V CLINICAL HISTORY: L4-L5 LATERAL LUMBAR INTERBODY AND POSTERIOR INSTRUMENTATION COMPARISON STUDY: None. FLUOROSCOPY TIME: 4 minutes and 21 seconds. FLUOROSCOPY IMAGES: 8 Ka,r: 313.5 mGy FINDINGS: Posterior decompression and fusion at L4-L5 with pedicle screws and rods. A disc spacer is in place. The hardware appears intact. IMPRESSION: Fluoroscopic assistance as above. ACT 112: Negative or not required by law. Electronically signed by: Vineet Anderson M.D. 03/09/2024 3:15 PM PG Care Time/CCT Total # of Minutes Spent Total Time Spent with Patient: Total time spent is greater than 50% in coordination of care (as documented) at patient's floor/unit and/or counseling patient: Coding [place] [address] IN/OBS CONSULT LVL 3,45M Patient Type Established Medical Decision Making Moderate Complexity Diagnoses Lumbar stenosis with neurogenic claudication M48.062 SOB (shortness of breath) R06.02 HFrEF (heart failure with reduced ejection fraction) I50.20 Paroxysmal atrial fibrillation I48.0 Hypertension I10 Hypothyroidism E03.9 History of breast cancer Z85.3
--- NOTE | 2024-03-09 15:16 | Fluoroscopy Report ---
FL lumbar spine 2-3V CLINICAL HISTORY: L4-L5 LATERAL LUMBAR INTERBODY AND POSTERIOR INSTRUMENTATION COMPARISON STUDY: None. FLUOROSCOPY TIME: 4 minutes and 21 seconds. FLUOROSCOPY IMAGES: 8 Ka,r: 313.5 mGy FINDINGS: Posterior decompression and fusion at L4-L5 with pedicle screws and rods. A disc spacer is in place. The hardware appears intact. IMPRESSION: Fluoroscopic assistance as above. ACT 112: Negative or not required by law. Electronically signed by: Vineet Anderson M.D. 03/09/2024 3:15 PM
[2024-03-09] MEDS: ONDANSETRON INJ 2 MG/ML 2 ML VIAL IV PRN (16:01)
[2024-03-09] MEDS: HYDROmorphone INJ 0.5 MG/0.5 ML SYR IV PRN (17:16)
[2024-03-09] MEDS: ceFAZolin 1000MG 1,000 MG/7.5 ML SYR IV SCH (18:35)
[2024-03-09] MEDS: METOCLOPRAMIDE HCL INJ 5 MG/ML 2 ML VIAL IV PRN (18:53)
[2024-03-09] MEDS: DOCUSATE SODIUM/SENNA 50/8.6MG TAB PO SCH (20:30)
[2024-03-10] MEDS: POLYETHYLENE (MIRALAX) 17 GM PACK PO SCH (06:44)
[2024-03-10] MEDS: LEVOTHYROXINE SODIUM 100 MCG TABLET PO SCH (06:44)
[2024-03-10 07:44] LABS: Calcium 9.1 mg/dl (8.6-10.3); Potassium 3.6 mmol/L (3.5-5.1)
[2024-03-10 07:46] LABS: Basophils # (auto) 0.02 K/uL (0.00-0.20); Basophils % (auto) 0.2 %; Hematocrit (blood only) 32.3 % (37.0-47.0); Hemoglobin 10.3 g/dl (12.0-16.0); Immature Granulocytes # (auto) 0.05 K/uL (0.01-0.20); Immature Granulocytes % (auto) 0.5 %; Lymphocytes # (auto) 0.67 K/uL (1.20-3.40); Lymphocytes % (auto) 6.7 %; Mean Corpuscular Hemoglobin 27.5 pg (25.0-34.0); Mean Corpuscular Hgb Conc 31.9 g/dL (32.0-36.0); Mean Corpuscular Volume 86.4 fL (80.0-100.0); Mean Platelet Volume 10.7 fL (9.4-12.4); Monocytes # (auto) 1.15 K/uL (0.11-0.59); Monocytes % (auto) 11.5 %; Neutrophils # (auto) 8.09 K/uL (1.40-6.50); Neutrophils % (auto) 81.1 %; Platelet Count 211 K/uL (130-400); RDW Coefficient of Variation 14.9 % (11.5-14.5); RDW Standard Deviation 47.1 fL (36.4-46.3); Red Blood Count 3.74 M/uL (4.20-5.40); White Blood Count 9.98 K/ul (4.8-10.8)
[2024-03-10 07:49] LABS: BUN Creatinine Ratio 25.9 (10-20); Creatinine Clr Calc Pharmacy 38.6 ml/min; Est GFR (African American) 54.2 ml/min; Est GFR (Non-African American) 46.8 ml/min
[2024-03-10] MEDS: METOPROLOL SUCC 50MG EXT REL TAB PO SCH (09:00)
[2024-03-10] MEDS: AMIODARONE 200 MG TAB PO SCH (09:00)
[2024-03-10] MEDS: LORATADINE 10 MG TAB PO SCH (09:00)
[2024-03-10] MEDS ORDERED: LORazepam 2 MG/1 ML VIAL IV PRN (12:49)
--- NOTE | 2024-03-10 15:35 | Operative Report ---
PG Post Operative Report Pre & Post Diagnosis Operation Date: 03/09/24 07:15 Pre-Op Diagnosis: 1. Lumbar stenosis and neurogenic claudication 2. Lower back pain radiating to left lower extremity 3. Degenerative spondylolisthesis Post-Op Diagnosis: 1. Lumbar stenosis and neurogenic claudication 2. Lower back pain radiating to left lower extremity 3. Degenerative spondylolisthesis I identified the patient and participated in the time-out.: Yes Procedure Operation Date: 03/09/24 07:15 Actual Procedures p L4-L5 Lateral Lumbar Interbody Fusion with Posterior Instrumentation with Spinal Cord Monitoring(Not Applicable) - Tom Acuña MD Surgeon Tom Acuña MD [employer] Vocational Educator none Estimated Blood Loss 20 Findings Consistent with Post-Op Diagnosis Specimens none Description of Procedure 1. Left L4-5 lateral interbody arthrodesis. (57134) 2. L4-5 lateral interbody cage, NuVasive cohere XL 10 x 18 x 55 mm 10 degrees. (29998) 3. L4-5 posterior nonsegmental instrumentation, NuVasive reline 6.5 mm x 45 mm. ([id number]) Patient was taken operating room and after good anesthesia patient was positioned in right lateral decubitus left side up positioning on the OR table. After checking all areas for positioning, the patient was secured to the table in routine fashion for a lateral approach to the L4-5 level. Preprepped was performed, adjustments were made, and fluoroscopy was brought in to confirm the alignment on the table with marking the approximate location of the incision f ollowed by prepping and draping. A jejunal incision was made just over the iliac crest in line with the L4-5 level and then advanced down through subcutaneous tissues into the retroperitoneal area was able to palpate the psoas muscle. From here I then inserted the initial dilator and advanced this down to the lateral aspect of the disc base at L4-5 and confirmed its location fluoroscopically and using the monitoring. Adjustments had to be made prior to this with the monitoring system due to difficulties with the NuVasive reline, it is to note that we had to reposition the patient and add new wires before doing this procedure which added additional time. With initial dilators in place, the apparatus for the approach was inserted and then secured to the table. I inspected the lateral aspect of the disc base followed by then inserting the alexus. The position was confirmed on fluoroscopy and I moved ahead with the operative procedure. Lateral incision was then made in the annulus followed by then thorough removal of disc material through the interspace. Combination of curettes and umm were utilized to remove this disc material down to good endplate bone. Then went through trials selecting the size as noted for the interbody cage which provided some adequate distraction for this level. The cage was then obtained, fusion materials inserted within the cage and also outside the cage anteriorly and posteriorly and this was inserted without any issue with excellent alignment. With this now in place, vancomycin powder was placed, the operative after apparatus was removed without any issue noted. The operative site was then closed after inserting some additional vancomycin powder using combination 0's 2-0 Vicryl sutures and maulik for the skin. Patient was then repositioned prone on the Mike top, preprepped was performed followed by bringing in fluoroscopy where I marked for the approximate location for the incisions for the instrumentation. Prep and drape was performed, then began the procedure with 2 oblique longitudinal incisions on either side of the L4-5 interspace. Dissecting down through subcutaneous tissues into the fascia, I was able to then insert the initial Jamshidi needle on either side at the L5 level using combination of fluoroscopy I was able to advance the Jamshidi into the pedicle and vertebral body at L5. This was then removed guidewires were inserted, I then performed a similar procedure at L4 with insertion of the guidewires without issue with excellent position. I then tapped using monitoring in each instance with a 5.5 mm tap followed by insertion of 6.5 millimeter screws, all screws were then tested later and found greater than 20. I then inserted rods and provided some limited distraction on the right side to provide improved alignment, all the setscrews were locked down. The operative site was irrigated and vancomycin was placed after local anesthetic, and the operative site was closed with 0 Vicryl sutures in the fascial layer followed by 2-0 Vicryl sutures and maulik for skin. Sterile dressing was applied, the patient was taken recovery room in satisfactory condition. I attest to the content of the Intraoperative Record and any orders documented therein. Any exceptions are noted below. I attest to the content of the Intraoperative Record and any orders documented therein. Any exceptions are noted below.
--- NOTE | 2024-03-10 15:42 | Orthopedic Progress Note ---
Date of Service March 10, 2024 Subjective Patient was seen and examined, patient noted incisional pain from both the lateral and posterior incisions, but reports that she was out of bed to the bathroom ambulating with no specific deficits. Incision sites were unremarkable, no focal motor weakness. Impression: Postoperative day 1 from L4-5 fusion instrumentation. Plan: Will mobilize the patient today with physical therapy, appropriate pain medication. Review of Systems All systems reviewed & are unremarkable except as noted in HPI & below. Physical Exam . Results & Data Results & Data Laboratory Results . Diagnostic Findings . PG Care Time/CCT Total # of Minutes Spent Total Time Spent with Patient: Total time spent is greater than 50% in coordination of care (as documented) at patient's floor/unit and/or counseling patient: Coding Level of Care Code 36020 Post Operative Follow-Up
--- NOTE | 2024-03-10 15:48 | Discharge Summary ---
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 Principal Diagnosis Same as "Discharge Diagnosis" noted below under Discharge Instructions. Discharge Exam . Discharge Data Consultations 03/09/24 11:54 Consult Hospitalist Routine Procedures Performed Operation Date: 03/09/24 07:15 Actual Procedures p L4-L5 Lateral Lumbar Interbody Fusion with Posterior Instrumentation with Spinal Cord Monitoring(Not Applicable) - Tom Acuña MD Ordered Studies 03/09/24 07:15 [place] lumbar spine 2-3V Routine Hospital Course (1) Lumbar stenosis with neurogenic claudication: L4-5 fusion and instrumentation. (2) Low back pain radiating to left lower extremity: (3) Degenerative spondylolisthesis: (4) Paroxysmal atrial fibrillation: Cardioversion on March 18, 2024 PG Care Time/CCT Total # of Minutes Spent Total Time Spent with Patient: Total time spent is greater than 50% in coordination of care (as documented) at patient's floor/unit and/or counseling patient: Discharge Plan Discharge Items Patient Disposition: Transfer Residential Fac Reason For Visit: Degenerative Spondylolisthesis, Low Back Pain Radi Discharge Diagnosis: Lumbar stenosis with neurogenic claudication, degenerative spondylolisthesis. Activity: As commented below Lifting: No more than 10 pounds Bathing: May shower/bathe in 3 days Weightbearing: Full weightbearing Non-emergency contact: Surgeon Call non-emergency contact if: your pain is worsening Follow-up/Referrals: Aiden Gilbert MD [Primary Care Provider] - Jhonatan Torres MD [Physician] - Tom Acuña MD [Surgeon] - Diet: Heart Healthy and Low Sodium (2gm) Addtl Attending Provider Instructions: Ambulation as tolerated, no repetitive bending lifting twisting. May begin showers 3 days after surgery with washing operative site with soap and water and quick rinse. Pain medication as tolerated. Follow-up in 2 weeks. Recommend follow-up with quill cleaner and also bar tacker sewing machine in the postoperative period. Addtl Bar Helper Provider Instructions: Synthroid decreased to 75mcg daily. Please have repeat testing in 4-6 wks/adjustment as needed. Please have repeat blood counts in the next 24-48 hours to ensure hemoglobin is remaining stable. Please monitor for additional prn "as needed" lasix given you were given IVF/diuretics held and had increased swelling/volume from such and may require additional dosing. Your weights were up but have been improved with diuretics and again you may benefit from taking an additional couple of dosing this week but can monitor your weights with resumption of the hydrochlorothiazide for blood pressure as this also works as a diuretic. Pending Studies at Discharge: No Stand-Alone Forms: My [facility] Skilled Items Patient informed of condition?: Yes DNR: No Discharge Level of Care: Acute rehab Communicable Disease: No Discharge Prognosis: Stable Lines: None Urinary Catheter: No Medications and DC Order Prescriptions: Continued Centrum Silver Women 8 mg iron-400 mcg-300 mcg tablet 1 tab PO QDL furosemide 40 mg tablet 40 mg PO DAILY PRN (Reason: edema in feet) Qty: 90 3RF Rx Instructions: Take 1 tablet daily until body weight at baseline and swelling minimal, then take only as needed tramadol 50 mg tablet 50 mg PO BID PRN (Reason: pain) Qty: 30 0RF Rx Instructions: In addition to the tramadol, take acetaminophen either regular strength or extra, 2 pills. amiodarone 200 mg tablet 200 mg PO DAILY Qty: 90 3RF oxycodone-acetaminophen 5-325 mg tablet 1 tab PO BID Qty: 20 0RF cyanocobalamin (vitamin B-12) 500 mcg tablet 1,000 mcg PO QDL Eliquis 5 mg tablet 5 mg PO BID Qty: 180 3RF clindamycin HCl 300 mg capsule 600 mg PO UD PRN (Reason: prior to dental procedure) Rx Instructions: 600 mg PO before dental procedures metoprolol succinate 100 mg tablet extended release 24 hr 100 mg PO DAILY Qty: 90 3RF acetaminophen [Tylenol Arthritis Pain] 650 mg tablet extended release 650 mg PO UD PRN (Reason: Pain) Rx Instructions: 650 mg orally DIRECTED NEEDED FOR PAIN; Saccharomyces boulardii 50 mg Capsule 50 mg PO BID exemestane 25 mg tablet 25 mg PO QDL Glucosamine Complex-MSM Capsule 1 cap PO QDL omega-3 fatty acids 1,000 mg Capsule 2,000 mg PO QDL loratadine [Claritin] 10 mg Tablet 10 mg PO QAM cholecalciferol (vitamin D3) [Vitamin D3] 50 mcg (2,000 unit) Capsule 1,000 mcg PO QDL PreserVision AREDS-2 250-90-40-1 mg Capsule 1 tab PO BID Cbd Cream 1 dose topical BID simvastatin 20 mg tablet 20 mg PO HS Rx Instructions: TAKE 1 TABLET BY MOUTH EVERY DAY IN THE EVENING losartan-hydrochlorothiazide 50-12.5 mg tablet 1 tab PO QAM potassium chloride 20 mEq tablet extended release 20 meq PO DAILY PRN (Reason: when taking lasix) Rx Instructions: Take 1 tablet by mouth every day that Furosemide is taken. docusate sodium 50 mg/5 mL Liquid 50 mg PO DAILY PRN (Reason: Constipation) Discontinued levothyroxine 100 mcg tablet 100 mcg PO QAM Discharge Orders: Discharge Order (Routine); Ordered 03/19/24 Ordered By: Tom Acuña Admission Data Admit Date/Time: 03/09/24 11:54 Attending Provider: Tom Acuña Admit Provider: Tom Acuña Primary Care Provider: Aiden Gilbert Other Providers: Noman Ramirez; Jason Angela
[2024-03-10] MEDS: METOPROLOL TARTRATE 1 MG/ML VIAL IV PRN (15:52)
--- NOTE | 2024-03-10 17:15 | Hospitalist Progress Note ---
Date of Service March 10, 2024 Assessment & Plan (1) Lumbar stenosis with neurogenic claudication: Plan: S/p L4-L5 lateral lumbar interbody fusion with Dr. Acuña on 03/09 [place] lumbar spine x-ray revealed hardware intact Perioperative antibiotics, DVT PPx, and pain control per the primary team (2) Paroxysmal atrial fibrillation: Plan: Continue amiodarone, metoprolol - pt reports she held these 3 days prior to surgery Can restart Eliquis at the discretion of primary team Patient tachycardic 120s, EKG SVT, possible aflutter after discussion with cardiology - IV Lopressor x3 without success - 500cc fluid bolus - start PO diltiazem q6H (3) HFrEF (heart failure with reduced ejection fraction): Plan: Last echocardiogram 10/28/2023 EF 65-70, normal LV function Daily weights Strict I&O monitoring Takes lasix 40 QAM and additional second dose PRN based on weight/swelling (reports frequently does not take this because then she pees all night) - will give 03/11 pending labs/BP (4) Hypertension: Plan: Continue metoprolol Resume losartan/HCTZ for 03/11 (5) SOB (shortness of breath): Plan: Patient endorses mild SOB at rest at time of initial consult, but does attribute this to anxiety SpO2 100% on RA; nontachycardic No additional SOB reported, no further workup indicated. Plan Chronic stable medical conditions: * hypothryoid - continue synthroid * hx of breast cancer - continue exemestane Disposition: continued inpatient stay, transferred to med/tele VTE PPx: SCDs/teds - resume eliquis when okay by primary team Thank you for allowing us to participate in the care of this patient, please reach out with any questions or concerns; we will continue to follow. Admission and Anticipated Discharge Date Admission Date: March 09, 2024 Supervising Physician Co-Signing Physician Notes Attending Attestation - Chart reviewed, care plan d/w ANA Medrano. I agree w/ the feldman components of her documentation. Advise Tx to telemetry unit for monitoring of tachyarrhythmia and treatment of such. Jason Angela MD Subjective Patient seen shortly before lunch, she continues to be tachycardic but asymptomatic. no shortness of breath. Has not passed gas or had a BM since surgery. states she held her amiodarone and metoprolol for 3 days prior to surgery cannot feel when she is in afib at home revisited after the first dose of Lopressor - patient has episode of confusion prior thinking she was about to get on a plane. By the time I had seen here, she realized she was confused and was reoirented to the hospital still remains tachycardic Review of Systems Review of Systems: All systems reviewed & are unremarkable except as noted in Subjective Physical Exam Physical Exam: General: NAD, VS as above Resp: normal respiratory effort, lungs clear to auscultation CV: tachycardic and irregular, no murmur, Abd: normal bowel sounds, soft, non tender, no hepatosplenomegaly Extremities: Moves all extremities, 1+ edema - pt reports baseline. raisa hose in place Neuro: A&O x3, Skin: intact, no lesions noted Results & Data Results & Data Vital Signs (Past 12 Hours) Vital Signs Temp Pulse Pulse Resp BP BP BP 03/10/24 16:59 110 H 103/59 L 03/10/24 16:25 108 H 103/59 L 03/10/24 15:52 120 H 113/78 03/10/24 15:29 128 H 03/10/24 15:17 36.8 C 115 H 89/55 L 03/10/24 15:16 102/69 03/10/24 11:53 36.7 C 117 H 19 106/71 98/67 L 03/10/24 07:03 36.5 C 119 H 19 148/59 H Pulse Ox O2 Del Method 03/10/24 16:59 03/10/24 16:25 03/10/24 15:52 03/10/24 15:29 03/10/24 15:17 92 Room Air 03/10/24 15:16 03/10/24 11:53 03/10/24 07:03 95 Room Air Laboratory Results CBC and chemistry reviewed PG Care Time/CCT Total # of Minutes Spent Total Time Spent with Patient: Total time spent is greater than 50% in coordination of care (as documented) at patient's floor/unit and/or counseling patient: Coding Level of Care Code 81615 SUB INP/OBS CARE 3/50MIN Diagnoses Lumbar stenosis with neurogenic claudication M48.062 Paroxysmal atrial fibrillation I48.0 HFrEF (heart failure with reduced ejection fraction) I50.20 Hypertension I10 SOB (shortness of breath) R06.02
[2024-03-10] MEDS: ALUMINUM/MAGNESIUM SUSP 30 ML UDC PO PRN (18:19)
[2024-03-10] MEDS: LACTATED RINGER'S 500 ML IV ONE (18:36)
[2024-03-10] MEDS: dilTIAZem HCL 30 MG TAB PO SCH (20:08)
[2024-03-10] MEDS: ACETAMINOPHEN 500 MG TAB PO PRN (20:09)
[2024-03-11 06:56] LABS: Appearance Urine Cloudy (Clear); Bilirubin Urine Negative (Negative); Blood Urine 2+ (Negative); Color Urine Yellow; Epithelial Cell Urine Auto 0-2 /hpf (0-2); Glucose Urine UA Negative (Negative); Ketones Urine Negative (Negative); Leukocyte Esterase Urine Negative (Negative); Nitrite Urine Negative (Negative); Protein Urine 1+ (Negative); RBC Urine Automated >20 /hpf (0-2); Specific Gravity Urine 1.028 (1.000-1.030); Urobilinogen Urine Negative (Negative); WBC Urine Automated 0-5 /hpf (0-5); pH Urine 5.5 (4.5-7.5)
[2024-03-11 07:01] LABS: Bacteria Urine Automated 1+ (None Seen)
[2024-03-11 07:59] LABS: BUN Creatinine Ratio 23.6 (10-20); Calcium 8.6 mg/dl (8.6-10.3); Creatinine Clr Calc Pharmacy 38.5 ml/min; Est GFR (Non-African American) 45.7 ml/min; Magnesium 2.3 mg/dl (1.7-2.4); Potassium 3.6 mmol/L (3.5-5.1)
--- NOTE | 2024-03-11 08:24 | Orthopedic Progress Note ---
Date of Service March 11, 2024 Subjective Patient seen and examined, still noting pain primarily in the left lateral incision. In talking with her, she does acknowledge that her prior low back pain and leg symptoms you guys know the day before the surgery are resolved. He is a patient to have no focal weakness, there is a little mild drainage present on the dressings. Impression: Postoperative day 2 from L4-5 fusion. Plan: I discussed with patient that we will transition patient to changes in her pain medications, I am recommending continue efforts at ambulation, and working on discharge planning either to home or rehab facility. Review of Systems All systems reviewed & are unremarkable except as noted in HPI & below. Physical Exam . Results & Data Results & Data Laboratory Results . Diagnostic Findings . PG Care Time/CCT Total # of Minutes Spent Total Time Spent with Patient: Total time spent is greater than 50% in coordination of care (as documented) at patient's floor/unit and/or counseling patient: Coding Level of Care Code 11599 Post Operative Follow-Up
[2024-03-11] MEDS: LOSARTAN/HCTZ 50/12.5MG TAB PO SCH (09:02)
--- NOTE | 2024-03-11 10:33 | Hospitalist Progress Note ---
Date of Service March 11, 2024 Assessment & Plan (1) Lumbar stenosis with neurogenic claudication: Plan: S/p L4-L5 lateral lumbar interbody fusion with Dr. Acuña on 03/09 [place] lumbar spine x-ray revealed hardware intact Perioperative antibiotics, DVT PPx, and pain control per the primary team - okay to resume eliquis this evening 03/11 (2) Paroxysmal atrial fibrillation: Plan: Continue amiodarone, metoprolol - pt reports she held these 3 days prior to surgery Eliquis resumed PM 03/11 Patient tachycardic 120s, EKG SVT, possible aflutter after discussion with cardiology - IV Lopressor x3 without success - 500cc fluid bolus - PO diltiazem q6H increased to 60mg (3) HFrEF (heart failure with reduced ejection fraction): Plan: Last echocardiogram 10/28/2023 EF 65-70, normal LV function Daily weights Strict I&O monitoring Takes lasix 40 QAM and additional second dose PRN based on weight/swelling (reports frequently does not take this because then she pees all night) - will give 03/12 pending labs/BP (4) Hypertension: Plan: Continue metoprolol Resume losartan/HCTZ for 03/11 (5) SOB (shortness of breath): Plan: Patient endorses mild SOB at rest at time of initial consult, but does attribute this to anxiety SpO2 100% on RA; nontachycardic No additional SOB reported, no further workup indicated. Plan Chronic stable medical conditions: * hypothryoid - continue synthroid * hx of breast cancer - continue exemestane Disposition: continued inpatient stay, treating afib RVR VTE PPx: SCDs/teds - resume eliquis when okay by primary team Thank you for allowing us to participate in the care of this patient, please reach out with any questions or concerns; we will continue to follow. Admission and Anticipated Discharge Date Admission Date: March 09, 2024 Supervising Physician Co-Signing Physician Notes Attending Attestation - Chart reviewed, care plan d/w ANA Medrano. I agree w/ the feldman components of her documentation. Jason Angela MD Subjective Patient seen sitting up in the chair. Falls asleep multiple times during my conversation - has worked with PT and had one percocet this morning states pain in back is worse than what it was prior to surgery does not feel like her heart is beating fast but has reported some shortness of breath. Tele - Afib RVR 110-120s Physical Exam Physical Exam: General: NAD, VS as above Resp: normal respiratory effort, lungs clear to auscultation CV: tachycardic and irregular, no murmur, Abd: normal bowel sounds, soft, non tender, no hepatosplenomegaly Extremities: Moves all extremities, 1+ edema - pt reports baseline. raisa hose in place Neuro: A&O x3, Skin: intact, no lesions noted Results & Data Results & Data Vital Signs (Past 12 Hours) Vital Signs Temp Pulse Pulse Resp BP Pulse Ox O2 Del Method 03/11/24 07:57 36.3 C L 67 16 108/70 92 Room Air 03/11/24 07:31 104 H 03/11/24 05:57 122 H 111/78 03/11/24 03:45 36.2 C L 117 H 20 102/70 92 Room Air 03/10/24 23:00 36.6 C 114 H 22 112/73 92 Room Air Laboratory Results CBC, chemistry, urine osm, urine Na serum osm reviewed PG Care Time/CCT Total # of Minutes Spent Total Time Spent with Patient: Total time spent is greater than 50% in coordination of care (as documented) at patient's floor/unit and/or counseling patient: Coding Level of Care Code 70379 SUB INP/OBS CARE 3/50MIN Diagnoses Lumbar stenosis with neurogenic claudication M48.062 Paroxysmal atrial fibrillation I48.0 HFrEF (heart failure with reduced ejection fraction) I50.20 Hypertension I10 SOB (shortness of breath) R06.02
[2024-03-11] MEDS: SODIUM CHLORIDE 1 GM TABLET PO ONE (11:40)
[2024-03-11] MEDS: dilTIAZem HCl 60 MG TAB PO SCH (11:40)
[2024-03-11] MEDS: SODIUM CHLORIDE 0.9% 500 ML IV ONE (11:40)
[2024-03-11 14:48] LABS: BUN Creatinine Ratio 21.9 (10-20); Calcium 9.1 mg/dl (8.6-10.3); Creatinine Clr Calc Pharmacy 36.1 ml/min; Est GFR (African American) 50.8 ml/min; Est GFR (Non-African American) 43.8 ml/min; Potassium 3.9 mmol/L (3.5-5.1)
[2024-03-11] MEDS: CYCLOBENZAPRINE HCL 10 MG TAB PO SCH (15:04)
[2024-03-11] MEDS: APIXABAN 5 MG TABLET PO SCH (20:51)
--- NOTE | 2024-03-12 05:44 | Electrocardiogram Report ---
Test Reason : Blood Pressure : */* mmHG Vent. Rate : 126 BPM Atrial Rate : 136 BPM P-R Int : * ms QRS Dur : 104 ms QT Int : 336 ms P-R-T Axes : * -4 185 degrees QTcB Int : 486 ms Atrial fibrillation with rapid ventricular response Prolonged QT Abnormal ECG When compared with ECG of 27-Dec-2023 12:15, Atrial fibrillation has replaced Sinus rhythm Confirmed by Noman Ramirez ([id number]) on 03/12/2024 5:44:09 AM Referred By: Tom Acuña Confirmed By: Noman Ramirez
--- NOTE | 2024-03-12 05:45 | Electrocardiogram Report ---
Test Reason : Blood Pressure : */* mmHG Vent. Rate : 121 BPM Atrial Rate : 75 BPM P-R Int : * ms QRS Dur : 112 ms QT Int : 340 ms P-R-T Axes : * -3 179 degrees QTcB Int : 482 ms Atrial fibrillation with rapid ventricular response Prolonged QT Abnormal ECG When compared with ECG of 10-Mar-2024 11:47, No significant change Confirmed by Noman Ramirez ([id number] on 03/12/2024 5:45:04 AM Referred By: Tom Acuña Confirmed By: Noman Ramirez
[2024-03-12 08:42] LABS: BUN Creatinine Ratio 23.5 (10-20); Calcium 8.6 mg/dl (8.6-10.3); Creatinine Clr Calc Pharmacy 36.1 ml/min; Est GFR (African American) 50.2 ml/min; Est GFR (Non-African American) 43.4 ml/min; Potassium 3.8 mmol/L (3.5-5.1)
[2024-03-12] MEDS: POTASSIUM CHLORIDE CRTAB 20 MEQ TABCR PO PRN (09:26)
--- NOTE | 2024-03-12 09:43 | Orthopedic Progress Note ---
Date of Service March 12, 2024 Subjective Patient seen and examined, still noting some left flank pain and posterior incisional pain, notes preoperative symptoms in terms of low back pain and some lower extremity symptoms improved. Incision sites inspected, benign in appearance no evidence of infection. Impression: Postoperative day 3 from lateral cage placement on the left and posterior percutaneous instrumentation. Patient is still experiencing some incisional symptomatology. Plan: Spent time talking with the patient today she was not in any distress, did tend to fall asleep when talking to her, interviewed her when nurse was present. I recommended the patient mobilized with physical therapy, I discussed with her the importance of her doing ambulation. I also talked with the hospitalist, her heart rate and A-fib, heart failure issues were discussed, this is still undergoing management. Also talked with harness inspector, the patient is available for transfer when stable medically. Review of Systems All systems reviewed & are unremarkable except as noted in HPI & below. Physical Exam . Results & Data Results & Data Laboratory Results . Diagnostic Findings . PG Care Time/CCT Total # of Minutes Spent Total Time Spent with Patient: Total time spent is greater than 50% in coordination of care (as documented) at patient's floor/unit and/or counseling patient: Coding Level of Care Code 04776 Post Operative Follow-Up
[2024-03-12] MEDS: FUROSEMIDE 40 MG TAB PO PRN (11:15)
[2024-03-12] MEDS ORDERED: POLYETHYLENE (MIRALAX) 17 GM PACK PO PRN (11:27)
[2024-03-12] MEDS: ACETAMINOPHEN 325 MG TAB PO SCH (14:01)
--- NOTE | 2024-03-12 14:04 | Hospitalist Progress Note ---
Date of Service March 12, 2024 Assessment & Plan (1) Lumbar stenosis with neurogenic claudication: Plan: S/p L4-L5 lateral lumbar interbody fusion with Dr. Acuña on 03/09 [place] lumbar spine x-ray revealed hardware intact Perioperative antibiotics, DVT PPx, per the primary team - okay to resume eliquis this evening 03/11 I have altered the patient's pain control as she is very sensitive to medications and has been falling asleep while someone is talking to her - gabapentin 100 mg twice daily - Flexeril changed to 5 mg as needed - Tylenol now scheduled for baseline pain control - as needed oxycodone urinalysis checked with patient's increased confusion and prior day, urine culture without growth. (2) Paroxysmal atrial fibrillation: Plan: Continue amiodarone, metoprolol - pt reports she held these 3 days prior to surgery Eliquis resumed PM 03/11 Patient continues in Afib with rates slowly downtrending - IV Lopressor x3 without success - 500cc fluid bolus - PO diltiazem q6H 60mg Will attempt additional IV Lopressor this afternoon if patient blood pressure allows (3) HFrEF (heart failure with reduced ejection fraction): Plan: Last echocardiogram 10/28/2023 EF 65-70, normal LV function Daily weights Strict I&O monitoring Takes lasix 40 QAM and additional second dose PRN based on weight/swelling (reports frequently does not take this because then she pees all night) - Lasix morning dose given 03/12 Patient is on a regular diet however poor oral intake, also with nutritional supplements. Will not restrict a heart healthy to encourage oral intake (4) Hypertension: Plan: Continue metoprolol Continue losartan/HCTZ for 03/11 (5) SOB (shortness of breath): Plan: Patient endorses mild SOB at rest at time of initial consult, but does attribute this to anxiety SpO2 100% on RA; nontachycardic No additional SOB reported, no further workup indicated. Plan Chronic stable medical conditions: * hypothryoid - continue synthroid * hx of breast cancer - continue exemestane Disposition: continued inpatient stay, treating afib RVR VTE PPx: Eliquis Thank you for allowing us to participate in the care of this patient, please reach out with any questions or concerns; we will continue to follow. discussed case with Dr. Acuña Daughter updated by phone 03/12 Admission and Anticipated Discharge Date Admission Date: March 09, 2024 Supervising Physician Co-Signing Physician Notes Attending Attestation - Chart reviewed, care plan d/w ANA Medrano. I agree w/ the feldman components of her documentation. Jason Angela MD Subjective Patient seen sitting up in the chair. No family present at bedside. States that she is still having pain on the left side. On exam and is right over her incision, also unfortunately right where the brief adds. States she did have 1 episode of emesis this morning. Denies additional periods of confusion TelemetryA-fib 90s and 100s Review of Systems Review of Systems: All systems reviewed & are unremarkable except as noted in Subjective Physical Exam Physical Exam: General: NAD, VS as above Resp: normal respiratory effort, lungs clear to auscultation CV: tachycardic and irregular, no murmur, Abd: normal bowel sounds, soft, non tender, no hepatosplenomegaly Extremities: Moves all extremities, 1+ edema - pt reports baseline. raisa hose in place back: Shadowing over dressing over left side incision. Patient also points with this as the area that she has most pain Neuro: A&O x3, Results & Data Results & Data Vital Signs (Past 12 Hours) Vital Signs Temp Pulse Pulse Resp BP BP Pulse Ox 03/12/24 11:38 36.7 C 98 H 16 120/77 94 03/12/24 09:16 99 H 117/59 L 03/12/24 08:00 100 H 03/12/24 07:52 36.6 C 103 H 18 107/69 91 03/12/24 03:40 106 H 03/12/24 03:20 37.0 C 119 H 18 112/69 95 O2 Del Method 03/12/24 11:38 Room Air 03/12/24 09:16 03/12/24 08:00 03/12/24 07:52 Room Air 03/12/24 03:40 03/12/24 03:20 Room Air Laboratory Results BMP reviewed urine culture reviewed PG Care Time/CCT Total # of Minutes Spent Total Time Spent with Patient: Total time spent is greater than 50% in coordination of care (as documented) at patient's floor/unit and/or counseling patient: Coding Level of Care Code 12134 SUB INP/OBS CARE 3/50MIN Diagnoses Lumbar stenosis with neurogenic claudication M48.062 Paroxysmal atrial fibrillation I48.0 HFrEF (heart failure with reduced ejection fraction) I50.20 Hypertension I10 SOB (shortness of breath) R06.02
[2024-03-12] MEDS ORDERED: 0.2 MICRON FILTER SET 1 EACH IV STA (16:57)
[2024-03-12] MEDS ORDERED: AMIODARONE IV BOLUS & DRIP IV STA (16:57)
[2024-03-12] MEDS ORDERED: STAT IV Infusion **Titration per Protocol STA (16:57)
--- NOTE | 2024-03-12 17:05 | Cardiology Consultation ---
Date of Consultation March 12, 2024 Assessment & Plan (1) Paroxysmal atrial fibrillation: (2) Heart failure with improved ejection fraction (HFimpEF): (3) Hypertension: Plan ASSESSMENT/PLAN: 1. Atrial fibrillation with rapid ventricular response: Paroxysmal but has required cardioversions in the past before daily amiodarone. Now persistent. Asymptomatic. Heart rates have been difficult to control in the past. Therefore, recommend trying to restore sinus rhythm. Discussed options such as intravenous amiodarone versus DC cardioversion. Given ongoing confusion since her back surgery, her daughter would prefer medical therapy for now rather than resedating her. Start amiodarone IV for now. Can continue beta-shine. Continue anticoagulation for stroke risk reduction. This episode of atrial fibrillation was less than 48 hours before initiation of anticoagulation therapy. Monitor TSH, transaminase levels, and QT intermittently while on amiodarone therapy. 2. Heart failure with improved EF: LV systolic function has normalized. She is euvolemic. Can continue her home diuretic regimen. Initial heart failure with midrange EF was in the setting of prolonged A-fib with RVR. 3. Confusion: As per primary service. 4. Hypertension: History of hypertension but her blood pressure has been mostly normotensive. Continue current regimen and if hypotensive, discontinue diltiazem. 5. Disposition: Cardiology will continue to follow. Patient care communicated with hospitalist service, Tierra Medrano PA-C. On discharge, follow-up with Dr. Koch, her primary lacing string cutter. Thank you for allowing me to participate in the care of your patient. Please call for any other questions or concerns. Sincerely, Jose Juan Ramirez M.D. History of Present Illness Reason for Consultation: A-fib with RVR Requesting Physician: Tierra Medrano PA-C Attending Physician: Tom Acuña MD History of Present Illness Mrs. Nelson is a very pleasant 83-year-old female with a history significant for paroxysmal atrial fibrillation (diagnosed April 2023) s/p DC CV x 2, breast cancer s/p XRT, and hypertension. While hospitalized in April 2023, she developed heart failure with midrange EF while in A-fib with RVR. LV systolic function has since normalized. Her primary lacing string cutter is Dr. Koch. She was diagnosed with atrial fibrillation in April 2023. Despite rate controlling attempts, heart rate was not adequately controlled and she underwent transesophageal echo and cardioversion on 05/13/2023. She was using amiodarone every other day in the outpatient setting and once again developed A-fib with RVR for which she underwent cardioversion on 12/27/2023. She was then placed on daily amiodarone. She is a poor historian as she is currently confused but has reported that she stopped taking amiodarone 3 days prior to her back surgery on 03/10/2024. She was seen by the hospitalist service on 03/09/2024 and was noted to be regular on exam and heart rate was normal. In the morning of 03/10/2024, she abruptly becam e tachycardic and was noted to be in atrial fibrillation. Rate control medications were initiated in the form of metoprolol succinate which she takes at home and diltiazem. Amiodarone and Eliquis were resumed on 03/11/2024 as well. She seems to be asymptomatic with her atrial fibrillation. She denies chest pain, shortness of breath, syncope, edema, or bleeding. She is confused however and therefore a poor historian currently. She did not recall ever having cardioversion in the past. Her daughter, Yulisa, was seated at the bedside and states that she is not typically this confused but has been confused postoperatively with transient improvement earlier this week. Review of systems: As above. Review of systems otherwise negative/unremarkable. Family history: Noncontributory. Social history: She denies tobacco, alcohol, drug abuse. She is a . She has 2 daughters who live in [place]. She spends half the year in [place], leaving [place] in May. She otherwise resides at the [facility]. Her daughter, Yulisa, was seated at the bedside. Allergies Allergy/AdvReac Type Severity Reaction Status Date / Time NSAIDS (Non-Steroidal Allergy Severe RENAL Verified 03/09/24 06:13 Anti-Inflamma FAILURE adhesive Allergy Mild RASH Verified 03/09/24 06:13 latex Allergy Mild RASH Verified 03/09/24 06:13 procaine Allergy Mild prolonged Verified 03/09/24 06:13 effect amoxicillin AdvReac Intermediate Diarrhea Verified 03/09/24 06:13 orange AdvReac Intermediate "not Verified 03/09/24 06:13 supposed to take any citrus foods" orange juice AdvReac Intermediate "not Verified 03/09/24 06:13 supposed to take any citrus foods" pepper (genus Capsicum) AdvReac Intermediate "not Verified 03/09/24 06:13 supposed to take any due to an overactive bladder" sesame seed AdvReac Intermediate "not Verified 03/09/24 06:13 supposed to take any due to an overactive bladder" Home Medications Medication Instructions Recorded Confirmed Type cyanocobalamin (vitamin B-12) 500 1,000 mcg PO QDL 12/18/19 03/09/24 History mcg tablet [id number] 8 mg-folic 400 1 tab PO QDL 12/20/20 03/09/24 History mcg-K 50 mcg-lutein 300 mcg tablet (Centrum Silver Women) clindamycin HCl 300 mg capsule 600 mg PO UD PRN prior to dental 05/18/21 03/09/24 History procedure loratadine 10 mg tablet (Claritin) 10 mg PO QAM 04/29/23 03/09/24 History omega-3 fatty acids 1,000 mg 2,000 mg PO QDL 04/29/23 03/09/24 History capsule Saccharomyces boulardii 50 mg 50 mg PO BID 05/10/23 03/09/24 History capsule exemestane 25 mg tablet 25 mg PO QDL 05/10/23 03/09/24 History ulkeanlqrib-rme-wpytojkfv-vitC 1 cap PO QDL 05/10/23 03/09/24 History capsule (Glucosamine Complex-MSM capsule) apixaban 5 mg tablet (Eliquis) 5 mg PO BID #180 tabs 05/20/23 03/09/24 Rx acetaminophen 650 mg 650 mg PO UD PRN Pain 12/04/23 03/09/24 History tablet,extended release (Tylenol Arthritis Pain) Cbd Cream 1 dose topical BID 12/25/23 03/09/24 History cholecalciferol (vitamin D3) 50 1,000 mcg PO QDL 12/25/23 03/09/24 History mcg (2,000 unit) capsule (Vitamin D3) levothyroxine 100 mcg tablet 100 mcg PO QAM 12/25/23 03/09/24 History losartan 50 mg-hydrochlorothiazide 1 tab PO QAM 12/25/23 03/09/24 History 12.5 mg tablet potassium chloride 20 mEq 20 meq PO DAILY PRN when taking 12/25/23 03/09/24 History tablet,extended release lasix simvastatin 20 mg tablet 20 mg PO HS 12/25/23 03/09/24 History vit C 250 mg-vit E 90 mg-zinc 40 1 tab PO BID 12/25/23 03/09/24 History mg-copper 1 qf-pgwdwc-ysjeuh capsule (PreserVision AREDS-2) docusate sodium 50 mg/5 mL oral 50 mg PO DAILY PRN Constipation 12/31/23 03/09/24 History liquid furosemide 40 mg tablet 40 mg PO DAILY PRN edema in feet 01/13/24 03/09/24 Rx #90 tabs tramadol 50 mg tablet 50 mg PO BID PRN pain #30 tabs 01/28/24 03/09/24 Rx metoprolol succinate 100 mg 100 mg PO DAILY #90 tabs 02/03/24 03/09/24 Rx tablet,extended release 24 hr amiodarone 200 mg tablet 200 mg PO DAILY #90 tabs 02/10/24 03/09/24 Rx oxycodone-acetaminophen 5 mg-325 1 tab PO BID #20 tabs 03/12/24 Rx mg tablet Problem List (Updated 03/12/24 @ 17:16 by Noman Ramirez MD) Heart failure with improved ejection fraction (HFimpEF) SOB (shortness of breath) History of breast cancer Dx 2017 left breast; h/o lumpectomy + radiation-no limb restriction Heart failure with recovered ejection fraction (HFrecEF) Paroxysmal atrial fibrillation Lumbar stenosis with neurogenic claudication Low back pain radiating to left lower extremity Degenerative spondylolisthesis HFrEF (heart failure with reduced ejection fraction) Cardiomyopathy Heart failure with mid-range ejection fraction Left hip pain Rotator cuff arthropathy History of left breast cancer Rotator cuff arthropathy of both shoulders Lumbar spondylosis Anemia (Acute) Dyslipidemia Urinary frequency Bunion, left foot Degenerative joint disease of left midfoot Degenerative joint disease of right midfoot Trigger finger of right hand Osteopenia (Acute) Insomnia Hypothyroidism Hypertension Degenerative joint disease, multiple joints on both sides of body Anxiety Allergic rhinitis (Acute) Patient History Medical History History of transesophageal echocardiography (ULI) (04/2023) Closed fracture of right proximal humerus (01/15/23) fell out of bed Renal angiomyolipoma GERD (gastroesophageal reflux disease) Well controlled and stable Depression Malignant neoplasm of lower-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) Orthopnea ongoing for many years per patient; denies change or worsening Claustrophobia Difficult intravenous access Pulmonary hypertension NSTEMI (non-ST elevated myocardial infarction) Type II demand NSTEMI 04/2023 in the setting of new A-fib RVR Urinary frequency Osteopenia Lumbar stenosis Hypertension Dyslipidemia Lumbar back pain Degenerative spondylolisthesis Degenerative joint disease involving multiple joints Cardiomyopathy History of anxiety no meds currently Angiomyolipoma of both kidneys Allergic rhinitis History of cardioversion 04/2023 @ [facility] Atrial fibrillation diagnosed 04/2023--follows with Dr. Koch--had cardioversion 12/27/23--on eliquis/metoprolol Lumbar radiculopathy, right Duodenal ulcer hx GI bleeding hx of 2020 Osteoarthritis Overactive bladder Hypothyroidism LVH (left ventricular hypertrophy) follows with Dr. Koch Surgical History History of total right knee replacement (TKR) 01/2021 @ [facility] History of left knee replacement History of colonoscopy History of lumpectomy of left breast (02/22/17) Left partial mastectomy with SLNB 02/22/17 Dr. Vora History of cholecystectomy History of tonsillectomy and adenoidectomy History of breast biopsy Family History Unknown Aortic aneurysm Other No family history of adverse response to anesthesia Social History Smoking Status: Never smoker Second Hand Exposure: No; Do You Dip or Chew Tobacco: No; Tobacco Cessation Education Requested by Patient: No Hx Alcohol Use: No Hx Substance Use: No Preferred Language: Cameroonian Communication Ability: Effective Visual Impairment: Partially Limited Precision Jig Grinder Required: No Beliefs That Will Affect Care: None marital status: / Current Living Situation Comment: [facility] current occupational status: retired How many Children do You have: 2 Other Information That Helps Us Care for You: No Feels Safe at Home: Yes Safety Concerns: Feels Safe At This Time Assistive Devices: Walker Physical Exam Physical Exam: Gen.: No acute distress. Alert. HEENT: Anicteric sclera. Neck: No appreciable JVD. No bruits. Normal carotid upstrokes bilaterally. Cardiac: No ventricular heave. Irregularly irregular. Tachycardic. Normal S1-S2. No murmurs, rubs, or gallops. Pulmonary: Clear to auscultation bilaterally without wheezes, rales, or rhonchi. Abdomen: Soft, nontender, nondistended, with normoactive bowel sounds. No bruits noted. Extremities: 2+ radial pulses bilaterally. 2+ posterior tibialis pulses bilaterally. Trace bilateral lower extremity edema. Bilateral lower extremity varicose veins. No cyanosis. Results & Data Vital Signs (Past 12 Hours) Vital Signs Temp Pulse Pulse Resp BP BP Pulse Ox 03/12/24 15:00 127 H 03/12/24 11:38 36.7 C 98 H 16 120/77 94 03/12/24 09:16 99 H 117/59 L 03/12/24 08:00 100 H 03/12/24 07:52 36.6 C 103 H 18 107/69 91 O2 Del Method 03/12/24 15:00 03/12/24 11:38 Room Air 03/12/24 09:16 03/12/24 08:00 03/12/24 07:52 Room Air Laboratory Results Laboratory Results - last 24 hr 03/12/24 07:57 Sodium 132 L Potassium 3.8 Chloride 100 Carbon Dioxide 27 Anion Gap 5 BUN 27 H Creatinine 1.15 Est Cr Clr Drug Dosing 36.1 Est GFR ( Amer) 50.2 Est GFR (Non-Af Amer) 43.4 BUN/Creatinine Ratio 23.5 H Glucose 132 H Calcium 8.6 Diagnostic Findings Telemetry personally reviewed: Atrial fibrillation with rapid ventricular response. Hospitalist notes reviewed. Echo 10/28/2023: Normal LV systolic function. EF 65 to 70%. Cardioversion notes reviewed. Labs reviewed and notable for stable renal function, normal potassium, normal TSH on 02/14/2024, normal transaminase levels on 01/29/2024, mild anemia. ECG personally reviewed 03/10/2024 at 1444: A-fib RVR 121 bpm. Prolonged QT. Lateral ST/T wave abnormality. Medications Administered Current Inpatient Medications Acetaminophen (Acetaminophen 325 Mg Tab) 650 mg PO Q6H JORGE Stop: 04/11/24 13:59 Last Admin: 03/12/24 14:01 Dose: 650 mg Al Hydrox/Mg Hydrox/Simethicone (Aluminum/Magnesium Susp 30 Ml Udc) 30 ml PO Q6H PRN PRN Reason: Dyspepsia Stop: 04/08/24 11:53 Last Admin: 03/10/24 18:19 Dose: 30 ml Amiodarone HCl (Amiodarone 200 Mg Tab) 200 mg PO DAILY JORGE Stop: 04/09/24 08:59 Last Admin: 03/12/24 09:26 Dose: 200 mg Apixaban (Apixaban 5 Mg Tablet) 5 mg PO BID [facility] Stop: 04/10/24 20:59 Last Admin: 03/12/24 09:26 Dose: 5 mg Bisacodyl (Bisacodyl 10 Mg Supp) 10 mg WA DAILY PRN PRN Reason: Constipation Stop: 04/08/24 11:53 Cyclobenzaprine HCl (Cyclobenzaprine Hcl 5 Mg Tab) 5 mg PO TID PRN PRN Reason: Muscle Spasm Stop: 04/11/24 13:59 Diltiazem HCl (Diltiazem Hcl 60 Mg Tab) 60 mg PO Q6H JORGE Stop: 04/10/24 12:29 Last Admin: 03/12/24 12:29 Dose: 60 mg Diphenhydramine HCl (Diphenhydramine Capsule 25 Mg Cap) 25 mg PO Q6H PRN PRN Reason: Allergic Rhinitis/Insomnia Stop: 04/08/24 11:53 Famotidine (Famotidine 20 Mg Tab) 20 mg PO Q12H PRN PRN Reason: Dyspepsia Stop: 04/08/24 11:53 Furosemide (Furosemide 40 Mg Tab) 40 mg PO DAILY PRN PRN Reason: edema in feet Stop: 04/08/24 13:48 Last Admin: 03/12/24 11:15 Dose: 40 mg Gabapentin (Gabapentin 100 Mg Cap) 100 mg PO BID [facility] Stop: 04/11/24 20:59 HCTZ/Losartan Potassium (Losartan/Hctz 50/12.5mg Tab) 1 tab PO QAM [facility] Stop: 04/09/24 08:59 Last Admin: 03/12/24 09:26 Dose: 1 tab Promethazine HCl (Phenergan) 12.5 mg in 50.5 mls @ 202 mls/hr IV Q6H PRN PRN Reason: Nausea And Vomiting Stop: 04/08/24 11:53 Amiodarone HCl/Dextrose (Nexterone / D5w) 360 mg in 200 mls @ 33.333 mls/hr IV ONE ONE Stop: 03/12/24 23:29 Amiodarone HCl/Dextrose (Nexterone / D5w) 360 mg in 200 mls @ 16.667 mls/hr IV .Q12H [facility] Stop: 04/11/24 23:29 Influenza Virus Vaccine Quadrival (Do Not Administer Flu Vaccine) 1 each N/A PRN PRN PRN Reason: Notification Stop: 04/08/24 11:53 Levothyroxine Sodium (Levothyroxine Sodium 100 Mcg Tablet) 100 mcg PO DAILYBB [facility] Stop: 04/09/24 06:29 Last Admin: 03/12/24 05:06 Dose: 100 mcg Loratadine (Loratadine 10 Mg Tab) 10 mg PO QAM [facility] Stop: 04/09/24 08:59 Last Admin: 03/12/24 09:26 Dose: 10 mg Magnesium Hydroxide (Magnesium Hydroxide Susp 30 Ml Udc) 30 ml PO Q24H PRN PRN Reason: Constipation Stop: 04/08/24 11:53 Metoclopramide HCl (Metoclopramide Hcl Inj 5 Mg/Ml 2 Ml Vial) 10 mg IV Q6H PRN PRN Reason: Nausea &/or Vomiting Stop: 04/08/24 11:53 Last Admin: 03/09/24 18:53 Dose: 10 mg Metoprolol Succinate (Metoprolol Succ 50mg Ext Rel Tab) 100 mg PO DAILY [facility] Stop: 04/09/24 08:59 Last Admin: 03/12/24 09:26 Dose: 100 mg Naloxone HCl (Naloxone Hcl 0.4 Mg/1 Ml Vial/Carp) 0.1 mg IV Q5M PRN PRN Reason: Oversedation/Resp depression Stop: 04/08/24 11:53 Ondansetron HCl (Ondansetron Inj 2 Mg/Ml 2 Ml Vial) 4 mg IV Q6H PRN PRN Reason: Nausea &/or Vomiting Stop: 04/08/24 11:53 Last Admin: 03/11/24 11:42 Dose: 4 mg Ondansetron HCl (Ondansetron 4 Mg Od Tab) 4 mg PO Q6H PRN PRN Reason: Nausea Stop: 04/08/24 11:53 Oxycodone HCl (Oxycodone Hcl Ir 5 Mg Tab (Immediate Release)) 2.5 - 5 mg PO Q6H PRN PRN Reason: Pain Stop: 03/26/24 12:15 Pneumococcal Polyvalent Vaccine (Do Not Administer Pneumococcal Vaccine) 1 each N/A PRN PRN PRN Reason: Notification Stop: 04/08/24 11:53 Polyethylene Glycol (Polyethylene (Miralax) 17 Gm Pack) 17 gm PO DAILY PRN PRN Reason: Constipation Stop: 04/11/24 11:26 Potassium Chloride (Potassium Chloride Crtab 20 Meq Tabcr) 20 meq PO DAILY PRN PRN Reason: when taking lasix Stop: 04/08/24 13:48 Last Admin: 03/12/24 09:26 Dose: 20 meq Senna/Docusate Sodium (Docusate Sodium/Senna 50/8.6mg Tab) 2 tab PO HS JORGE Stop: 04/08/24 20:59 Last Admin: 03/11/24 20:51 Dose: 2 tab Sodium Biphosphate/Sodium Phosphate (Sod Phosphate/Sod Biphosphate Enema 132 Ml Btl) 132 ml WA ONE PRN PRN Reason: Constipation Stop: 04/08/24 11:53 PG Care Time/CCT Total # of Minutes Spent Total Time Spent with Patient: Total time spent is greater than 50% in coordination of care (as documented) at patient's floor/unit and/or counseling patient: Coding Level of Care Code 85762 INT INP/OBS CARE 3/75MIN Diagnoses Paroxysmal atrial fibrillation I48.0 Heart failure with improved ejection fraction (HFimpEF) I50.32 Hypertension I10
[2024-03-12] MEDS: AMIODARONE / D5W 150 MG/100 ML BAG IV STA (18:44)
[2024-03-12] MEDS: AMIODARONE / D5W 360 MG/200 ML BAG IV ONE (18:57)
[2024-03-12] MEDS: GABAPENTIN 100 MG CAP PO SCH (20:25)
[2024-03-12] MEDS ORDERED: GABAPENTIN 300 MG CAP PO SCH (21:00)
[2024-03-13] MEDS: AMIODARONE / D5W 360 MG/200 ML BAG IV SCH (00:06)
[2024-03-13 07:57] LABS: BUN Creatinine Ratio 22.1 (10-20); Calcium 8.6 mg/dl (8.6-10.3); Creatinine Clr Calc Pharmacy 36.6 ml/min; Est GFR (African American) 51.3 ml/min; Est GFR (Non-African American) 44.3 ml/min; Potassium 3.6 mmol/L (3.5-5.1)
[2024-03-13 08:11] LABS: Thyroid Stimulating Hormone 0.194 uIu/ml (0.300-4.500)
[2024-03-13 08:49] LABS: T4 Free Thyroxine 2.09 ng/dl (0.61-1.60)
--- NOTE | 2024-03-13 10:44 | Hospitalist Progress Note ---
Date of Service March 13, 2024 Assessment & Plan (1) Lumbar stenosis with neurogenic claudication: Plan: S/p L4-L5 lateral lumbar interbody fusion with Dr. Acuña on 03/09 [place] lumbar spine x-ray revealed hardware intact Perioperative antibiotics, DVT PPx, per the primary team - resumes eliquis this evening 03/11 I have altered the patient's pain control as she is very sensitive to medications and has been falling asleep while someone is talking to her - gabapentin 100 mg twice daily - Flexeril changed to 5 mg as needed - Tylenol now scheduled for baseline pain control - as needed oxycodone urinalysis checked with patient's increased confusion and prior day, urine culture without growth. - check COVID swab - negative (2) Paroxysmal atrial fibrillation: Plan: Continue amiodarone, metoprolol - pt reports she held these 3 days prior to surgery Eliquis resumed PM 03/11 Rates were slowly downtrending with PO Cardizem but then increased and stayed 120-130s --> cardiology consulted - placed on amiodarone drip - continue home PO amiodarone and metoprolol - Cardizem PO q6 - has required cardioversion in the past (3) HFrEF (heart failure with reduced ejection fraction): Plan: Last echocardiogram 10/28/2023 EF 65-70, normal LV function Daily weights Strict I&O monitoring Takes lasix 40 prn with Potassium - Lasix morning dose given 03/12 Patient is on a regular diet however poor oral intake, also with nutritional supplements. Will not restrict a heart healthy to encourage oral intake (4) Hypertension: Plan: Continue metoprolol Continue losartan/HCTZ for 03/11 (5) Hypothyroidism: Plan: TSH checked well on amiodarone - low TSH, elevated T4 - patient has had multiple dose adjustments in the last year, will decrease dose to 75mcq Plan Chronic stable medical conditions: * hx of breast cancer - continue exemestane Disposition: continued inpatient stay, treating afib RVR VTE PPx: Lizzettequis Thank you for allowing us to participate in the care of this patient, please reach out with any questions or concerns; we will continue to follow. Daughter updated by phone 03/12 and at bedside 03/13 Admission and Anticipated Discharge Date Admission Date: March 09, 2024 Supervising Physician Co-Signing Physician Notes Attending Attestation - Chart reviewed, care plan d/w ANA Medrano. I agree w/ the feldman components of her documentation. Jason Angela MD Subjective Patient seen walking back from the bathroom and sitting up in the chair. Daughter present at bedside. Denies SOB. does not feel her tachycardia small BM this morning continues to have pain on left incision Tele - afibs 110s Review of Systems Review of Systems: All systems reviewed & are unremarkable except as noted in Subjective Physical Exam Physical Exam: General: NAD, VS as above Resp: normal respiratory effort, lungs clear to auscultation CV: tachycardic and irregular, no murmur, Abd:soft Extremities: Moves all extremities, trace edema Back: Left sided dressing changed with RN, maulik in place, no signs of infection. brief ends right at the staple line, Neuro: A&O x3, periods of confusion Results & Data Results & Data Vital Signs (Past 12 Hours) Vital Signs Temp Pulse Pulse Resp BP BP Pulse Ox 03/13/24 08:00 03/13/24 08:00 105 H 03/13/24 07:53 36.8 C 105 H 19 104/74 95 03/13/24 03:10 36.5 C 85 17 117/74 96 03/12/24 23:23 110 H 03/12/24 23:15 36.8 C 113 H 17 113/73 95 O2 Del Method 03/13/24 08:00 Room Air 03/13/24 08:00 03/13/24 07:53 Room Air 03/13/24 03:10 Room Air 03/12/24 23:23 03/12/24 23:15 Room Air Laboratory Results chemistry and TSH reviewed PG Care Time/CCT Total # of Minutes Spent Total Time Spent with Patient: Total time spent is greater than 50% in coordination of care (as documented) at patient's floor/unit and/or counseling patient: Coding Level of Care Code 96261 SUB INP/OBS CARE 3/50MIN Diagnoses Lumbar stenosis with neurogenic claudication M48.062 Paroxysmal atrial fibrillation I48.0 HFrEF (heart failure with reduced ejection fraction) I50.20 Hypertension I10 Hypothyroidism E03.9
[2024-03-13 11:35] LABS: Influenza A virus by PCR Negative (Neg); Influenza B virus by PCR Negative (Neg); RSV by PCR Negative (Neg); SARS CoV2 RNA(COVID-19) Ceph NEGATIVE (Negative)
[2024-03-13] MEDS: oxyCODONE HCL IR 5 MG TAB (IMMEDIATE RELEASE) PO PRN (15:25)
[2024-03-13] MEDS ORDERED: Nursing to Pharmacy Communication SCH (17:45)
[2024-03-13] MEDS: GABAPENTIN 300 MG CAP PO SCH (17:57)
[2024-03-13] MEDS: oxyCODONE HCL IR 5 MG TAB (IMMEDIATE RELEASE) PO STA (18:09)
--- NOTE | 2024-03-13 19:37 | Cardiology Progress Note ---
Date of Service March 13, 2024 Assessment & Plan (1) Paroxysmal atrial fibrillation: (2) Heart failure with improved ejection fraction (HFimpEF): (3) Hypertension: Plan ASSESSMENT/PLAN: 1. Atrial fibrillation with rapid ventricular response: Paroxysmal but has required cardioversions in the past before daily amiodarone. Now persistent. Asymptomatic. Heart rates have been difficult to control in the past. Therefore, recommend trying to restore sinus rhythm. Discussed options such as intravenous amiodarone versus DC cardioversion. Given ongoing confusion since her back surgery, her daughter prefered medical therapy for now rather than resedating her. Started amiodarone IV 03/12/24. Continue IV amiodarone for now. Heart rate has improved. If she does not convert with intravenous amiodarone, may be reasonable to either use amiodarone for rate control strategy going forward or consider repeating cardioversion. Can continue beta-shine. Continue anticoagulation for stroke risk reduction. This episode of atrial fibrillation was less than 48 hours before initiation of anticoagulation therapy. Monitor TSH, transaminase levels, and QT intermittently while on amiodarone therapy. 2. Heart failure with improved EF: LV systolic function has normalized. She is euvolemic. Can continue her home diuretic regimen. Initial heart failure with midrange EF was in the setting of prolonged A-fib with RVR. 3. Confusion: As per primary service. 4. Hypertension: History of hypertension but her blood pressure well-controlled today. Continue current regimen and if hypotensive, discontinue diltiazem. 5. Disposition: Cardiology will continue to follow. Dr. Torres is available throughout the weekend. Patient was signed out to Dr. Torres. On discharge, follow-up with Dr. Koch, her primary manager universal. Admission and Anticipated Discharge Date Admission Date: March 09, 2024 Subjective Patient seen this evening. She denies chest pain, shortness of breath, syncope, near syncope, palpitations, edema, or bleeding. Her biggest issue is low back pain and left hip pain, which is being addressed by other providers. She was alone in her hospital room. Physical Exam Physical Exam: Gen.: No acute distress. Alert. Less confused. HEENT: Anicteric sclera. Neck: No appreciable JVD. Cardiac: No ventricular heave. Irregularly irregular. Normal S1-S2. 1/6 systolic murmur. Pulmonary: Clear to auscultation bilaterally without wheezes, rales, or rhonchi. Abdomen: Soft, nontender, nondistended, with normoactive bowel sounds. No bruits noted. Extremities: 2+ radial pulses bilaterally. 2+ posterior tibialis pulses bila terally. Trace bilateral lower extremity edema. Bilateral lower extremity varicose veins. No cyanosis. Results & Data Vital Signs (Past 12 Hours) Vital Signs Temp Pulse Pulse Resp BP Pulse Ox O2 Del Method 03/13/24 15:12 36 C L 96 H 16 119/72 97 Room Air 03/13/24 10:46 101 H 19 111/68 94 Room Air 03/13/24 08:00 Room Air 03/13/24 08:00 105 H 03/13/24 07:53 36.8 C 105 H 19 104/74 95 Room Air Laboratory Results Laboratory Results - last 24 hr 03/13/24 03/13/24 07:04 10:12 Sodium 134 L Potassium 3.6 Chloride 99 Carbon Dioxide 29 Anion Gap 6 BUN 25 H Creatinine 1.13 Est Cr Clr Drug Dosing 36.6 Est GFR ( Amer) 51.3 Est GFR (Non-Af Amer) 44.3 BUN/Creatinine Ratio 22.1 H Glucose 128 H Calcium 8.6 TSH 0.194 L Free T4 2.09 H SARS-CoV-2 (PCR) NEGATIVE Influenza Type A (PCR) Negative Influenza Type B (PCR) Negative RSV (RT-PCR) Negative Diagnostic Findings Labs reviewed and notable for stable renal function, normal potassium, low TSH. Telemetry personally reviewed: Atrial fibrillation with improved heart rate, mostly 90s to 100s. ECG personally reviewed 03/13/2024 6:01 AM: A-fib RVR [address]/T wave abnormalities. Medications Administered Current Inpatient Medications Acetaminophen (Acetaminophen 325 Mg Tab) 650 mg PO Q6H JORGE Stop: 04/11/24 13:59 Last Admin: 03/13/24 18:09 Dose: 650 mg Al Hydrox/Mg Hydrox/Simethicone (Aluminum/Magnesium Susp 30 Ml Udc) 30 ml PO Q6H PRN PRN Reason: Dyspepsia Stop: 04/08/24 11:53 Last Admin: 03/10/24 18:19 Dose: 30 ml Amiodarone HCl (Amiodarone 200 Mg Tab) 200 mg PO DAILY JORGE Stop: 04/09/24 08:59 Last Admin: 03/12/24 09:26 Dose: 200 mg Apixaban (Apixaban 5 Mg Tablet) 5 mg PO BID [facility] Stop: 04/10/24 20:59 Last Admin: 03/13/24 08:53 Dose: 5 mg Bisacodyl (Bisacodyl 10 Mg Supp) 10 mg UT DAILY PRN PRN Reason: Constipation Stop: 04/08/24 11:53 Cyclobenzaprine HCl (Cyclobenzaprine Hcl 5 Mg Tab) 5 mg PO TID PRN PRN Reason: Muscle Spasm Stop: 04/11/24 13:59 Diltiazem HCl (Diltiazem Hcl 60 Mg Tab) 60 mg PO Q6H [facility] Stop: 04/10/24 12:29 Last Admin: 03/13/24 18:11 Dose: 60 mg Diphenhydramine HCl (Diphenhydramine Capsule 25 Mg Cap) 25 mg PO Q6H PRN PRN Reason: Allergic Rhinitis/Insomnia Stop: 04/08/24 11:53 Famotidine (Famotidine 20 Mg Tab) 20 mg PO Q12H PRN PRN Reason: Dyspepsia Stop: 04/08/24 11:53 Furosemide (Furosemide 40 Mg Tab) 40 mg PO DAILY PRN PRN Reason: edema in feet Stop: 04/08/24 13:48 Last Admin: 03/12/24 11:15 Dose: 40 mg Gabapentin (Gabapentin 300 Mg Cap) 300 mg PO BID [facility] Stop: 04/12/24 17:44 Last Admin: 03/13/24 17:57 Dose: 300 mg HCTZ/Losartan Potassium (Losartan/Hctz 50/12.5mg Tab) 1 tab PO QAM [facility] Stop: 04/09/24 08:59 Last Admin: 03/13/24 08:53 Dose: 1 tab Promethazine HCl (Phenergan) 12.5 mg in 50.5 mls @ 202 mls/hr IV Q6H PRN PRN Reason: Nausea And Vomiting Stop: 04/08/24 11:53 Amiodarone HCl/Dextrose (Nexterone / D5w) 360 mg in 200 mls @ 16.667 mls/hr IV .Q12H [facility] Stop: 04/11/24 23:29 Last Admin: 03/13/24 11:54 Dose: 0.5 mg/min, 16.7 mls/hr Influenza Virus Vaccine Quadrival (Do Not Administer Flu Vaccine) 1 each N/A PRN PRN PRN Reason: Notification Stop: 04/08/24 11:53 Levothyroxine Sodium (Levothyroxine Sodium 75 Mcg Tablet) [facility] Stop: 04/13/24 06:29 Loratadine (Loratadine 10 Mg Tab) 10 mg PO QAM [facility] Stop: 04/09/24 08:59 Last Admin: 03/13/24 08:55 Dose: 10 mg Magnesium Hydroxide (Magnesium Hydroxide Susp 30 Ml Udc) 30 ml PO Q24H PRN PRN Reason: Constipation Stop: 04/08/24 11:53 Metoclopramide HCl (Metoclopramide Hcl Inj 5 Mg/Ml 2 Ml Vial) 10 mg IV Q6H PRN PRN Reason: Nausea &/or Vomiting Stop: 04/08/24 11:53 Last Admin: 03/09/24 18:53 Dose: 10 mg Metoprolol Succinate (Metoprolol Succ 50mg Ext Rel Tab) 100 mg PO DAILY [facility] Stop: 04/09/24 08:59 Last Admin: 03/13/24 08:54 Dose: 100 mg Naloxone HCl (Naloxone Hcl 0.4 Mg/1 Ml Vial/Carp) 0.1 mg IV Q5M PRN PRN Reason: Oversedation/Resp depression Stop: 04/08/24 11:53 Ondansetron HCl (Ondansetron Inj 2 Mg/Ml 2 Ml Vial) 4 mg IV Q6H PRN PRN Reason: Nausea &/or Vomiting Stop: 04/08/24 11:53 Last Admin: 03/11/24 11:42 Dose: 4 mg Ondansetron HCl (Ondansetron 4 Mg Od Tab) 4 mg PO Q6H PRN PRN Reason: Nausea Stop: 04/08/24 11:53 Pneumococcal Polyvalent Vaccine (Do Not Administer Pneumococcal Vaccine) 1 each N/A PRN PRN PRN Reason: Notification Stop: 04/08/24 11:53 Polyethylene Glycol (Polyethylene (Miralax) 17 Gm Pack) 17 gm PO DAILY PRN PRN Reason: Constipation Stop: 04/11/24 11:26 Potassium Chloride (Potassium Chloride Crtab 20 Meq Tabcr) 20 meq PO DAILY PRN PRN Reason: when taking lasix Stop: 04/08/24 13:48 Last Admin: 03/12/24 09:26 Dose: 20 meq Senna/Docusate Sodium (Docusate Sodium/Senna 50/8.6mg Tab) 2 tab PO HS JORGE Stop: 04/08/24 20:59 Last Admin: 03/12/24 20:28 Dose: Not Given Sodium Biphosphate/Sodium Phosphate (Sod Phosphate/Sod Biphosphate Enema 132 Ml Btl) 132 ml UT ONE PRN PRN Reason: Constipation Stop: 04/08/24 11:53 PG Care Time/CCT Total # of Minutes Spent Total Time Spent with Patient: Total time spent is greater than 50% in coordination of care (as documented) at patient's floor/unit and/or counseling patient: Coding Level of Care Code 78313 SUB INP/OBS CARE 3/50MIN Diagnoses Paroxysmal atrial fibrillation I48.0 Heart failure with improved ejection fraction (HFimpEF) I50.32 Hypertension I10
[2024-03-13] MEDS: CYCLOBENZAPRINE HCL 5 MG TAB PO PRN (20:17)
[2024-03-13] MEDS ORDERED: GABAPENTIN 300 MG CAP PO SCH (21:00)
--- NOTE | 2024-03-14 00:57 | Electrocardiogram Report ---
Test Reason : Blood Pressure : */* mmHG Vent. Rate : 116 BPM Atrial Rate : 120 BPM P-R Int : * ms QRS Dur : 100 ms QT Int : 340 ms P-R-T Axes : * 5 198 degrees QTcB Int : 472 ms Poor data quality, interpretation may be adversely affected Atrial fibrillation with rapid ventricular response Abnormal ECG When compared with ECG of 10-Mar-2024 14:44, No significant change Confirmed by Noman Ramirez ([id number]) on 03/14/2024 12:57:03 AM Referred By: Tom Acuña Confirmed By: Noman Ramirez
[2024-03-14] MEDS: LEVOTHYROXINE SODIUM 75 MCG TABLET PO SCH (05:12)
[2024-03-14] MEDS: oxyCODONE HCL IR 5 MG TAB (IMMEDIATE RELEASE) PO STA (06:11)
[2024-03-14 06:20] LABS: BUN Creatinine Ratio 23.6 (10-20); Calcium 8.8 mg/dl (8.6-10.3); Creatinine Clr Calc Pharmacy 33.6 ml/min; Est GFR (African American) 46.3 ml/min; Potassium 3.8 mmol/L (3.5-5.1)
[2024-03-14] MEDS ORDERED: CYCLOBENZAPRINE HCL 10 MG TAB PO PRN (06:51)
[2024-03-14 10:12] LABS: Magnesium 2.2 mg/dl (1.7-2.4)
--- NOTE | 2024-03-14 10:43 | Hospitalist Progress Note ---
Date of Service March 14, 2024 Assessment & Plan (1) Lumbar stenosis with neurogenic claudication: Plan: S/p L4-L5 lateral lumbar interbody fusion with Dr. Acuña on 03/09 [place] lumbar spine x-ray revealed hardware intact Perioperative antibiotics, DVT PPx, per the primary team - On eliquis d/t afib I have altered the patient's pain control as she is very sensitive to medications and has been falling asleep while someone is talking to her - gabapentin 100 mg twice daily - Flexeril changed to 5 mg TID prn muscle spasms - Change Tylenol to 1g TID prn mild pain - as needed oxycodone 2.5-5mg tiered for pain scale - add one time dose of toradol 15mg IV x1 urinalysis checked with patient's increased confusion and prior day, urine culture without growth. - COVID swab - negative - suspect confusion d/t multiple pain medications and post anesthesia, mentation back to baseline Obtain CT lumbar spine w/o contrast to r/o other pathology that could be contributing to uncontrolled pain, d/w Dr. Acuña who is in agreement (2) Paroxysmal atrial fibrillation: Plan: Continue amiodarone, metoprolol - pt reports she held these 3 days prior to surgery Eliquis resumed PM 8/ HRs uncontrolled - ranging 100-120s - D/w Dr. Torres, d/c Amiodarone gtt, resume PO Amiodarone 200mg daily to resume 03/15 - Continue Metoprolol Succ 100mg daily - Cardizem PO q6 - has required cardioversion in the past but family declines cardioversion at present - Hold losartan/hctz d/t mildly bumped creat (1.13 to 1.23) & hypotension - fluid bolus ordered NSS 250 cc x1 (3) HFrEF (heart failure with reduced ejection fraction): Plan: Last echocardiogram 10/28/2023 EF 65-70, normal LV function Daily weights Strict I&O monitoring Takes lasix 40 prn with Potassium - Lasix morning dose given 03/12 - Patient is on a regular diet however poor oral intake, also with nutritional supplements. - Low salt, can liberalize fluid intake for time being (4) Hypertension: Plan: Continue metoprolol Hold ARB/HCTZ 03/14 d/t hypotension (5) Hypothyroidism: Plan: TSH checked well on amiodarone - low TSH, elevated T4 - patient has had multiple dose adjustments in the last year, will decrease dose to 75mcq Plan Chronic stable medical conditions: * hx of breast cancer - continue exemestane Disposition: continued inpatient stay, treating afib RVR VTE PPx: Veronica Thank you for allowing us to participate in the care of this patient, please reach out with any questions or concerns; we will continue to follow. Daughter updated by phone 03/12 and at bedside 03/13 Plan d/w Dr. Acuña, Dr. Torres and Dr. Angela who are in agreement with aforementioned. Admission and Anticipated Discharge Date Admission Date: March 09, 2024 Supervising Physician Co-Signing Physician Notes Attending Attestation - Chart reviewed, care plan d/w ANA Rowe. I agree w/ the feldman components of her documentation. Appreciate cardiology assistance for uncontrolled a.fib. Jason Angela MD Subjective Kair was seen and examined today. She is pod #5 from a L4-5 lateral lumbar interbody fusion w/ posterior instrumentation with spinal cord monitoring by Dr. Acuña. Nursing notified this AM that HR is in the 120s, afib, and BP 95/65. She is currently c/o pain in her left lower back with radiation down her left leg. She denies saddle anesthesias, bowel/bladder incontinence. She denies chest pain or dyspnea, palpitations, dizziness or lightheadedness. She is eating/drinking without issue. She denies n/v. Review of Systems 2 Review of Systems: All systems reviewed and are unremarkable except as noted in HPI and below. Denies fever, chills, fatigue, headache, nasal congestion, sore throat, cough, chest pain, shortness of breath, palpitations, orthopnea, PND, abdominal pain, n/v/d, constipation, dysuria, hematuria, frequency, back pain, joint pain or swelling, easy bruising or bleeding, skin lesions or rashes. Physical Exam 2 Physical Exam: GENERAL: 83 y/o well-developed, well-nourished elderly F. NAD. LUNGS: Clear to auscultation bilaterally. No accessory muscle use. No W/R/R. CARDIOVASCULAR: Irregular rate and rhythm ABDOMEN: Soft, non-tender and non-distended. No palpable masses. BS normoactive x 4 quad. EXTREMITIES: No edema. Non-tender. Peripheral pulses +2/4. NEUROLOGIC: A&O x3. LLE weakness. CN II-XII grossly intact. PSYCHIATRIC: Cooperative. Appropriate mood and affect. SKIN: Surgical incisions with maulik intact. No drainage or bleeding appreciated. Ecchymosis along left flank. Results & Data Results & Data Vital Signs (Past 12 Hours) Vital Signs Temp Pulse Pulse Resp BP BP Pulse Ox 03/14/24 07:47 36.5 C 111 H 19 95/65 L 96 03/14/24 06:12 101 H 96/65 L 03/14/24 03:52 88 03/14/24 03:00 36.7 C 101 H 17 106/71 96 03/13/24 23:00 36.7 C 109 H 17 121/74 91 O2 Del Method 03/14/24 07:47 Room Air 03/14/24 06:12 03/14/24 03:52 03/14/24 03:00 Room Air 03/13/24 23:00 Room Air Laboratory Results 03/10/24 06:40 03/14/24 04:59 PG Care Time/CCT Total # of Minutes Spent Total Time Spent with Patient: Total time spent is greater than 50% in coordination of care (as documented) at patient's floor/unit and/or counseling patient: Total time spent on the care of this patient including face to face, documentation in EHR, discussing with members of health care team including nursing and physicians totaled 50 minutes. Coding Level of Care Code 08942 SUB INP/OBS CARE 3/50MIN Diagnoses Lumbar stenosis with neurogenic claudication M48.062 Paroxysmal atrial fibrillation I48.0 HFrEF (heart failure with reduced ejection fraction) I50.20 Hypertension I10 Hypothyroidism E03.9
[2024-03-14] MEDS ORDERED: SODIUM CHLORIDE 0.9% 500 ML IV SCH (10:45)
--- NOTE | 2024-03-14 11:13 | Cardiology Progress Note ---
Date of Service March 14, 2024 Assessment & Plan (1) Paroxysmal atrial fibrillation: (2) Heart failure with improved ejection fraction (HFimpEF): (3) Hypertension: Plan ASSESSMENT/PLAN: 1. Atrial fibrillation with rapid ventricular response: She continues to have elevated ventricular rates. Generally speaking she is tolerating diltiazem, metoprolol and amiodarone. She has few symptoms. She did not get her morning dose of diltiazem due to some mild hypotension. I think will provide some mild volume resuscitation in the hopes that her blood pressure will come up and she can get her afternoon dose of diltiazem. We may have an opportunity to increase her metoprolol. I will switch her amiodarone to the oral formulation at her usual dose. I would suspect we will need to cardiovert her prior to discharge. Continue systemic anticoagulation. 2. Heart failure with improved EF: LV systolic function has normalized. She is euvolemic. Can continue her home diuretic regimen. 3. Confusion: She seems improved today. Perhaps some confusion about the events leading up to today's visit. 4. Hypertension: Blood pressure on the lower side recently. Will try some volume ministration. Admission and Anticipated Discharge Date Admission Date: March 09, 2024 Subjective This morning patient's main complaint is left hip discomfort. She states she has some difficulty moving due to left hip discomfort. She is not aware of palpitations. She denied breathing difficulty. She has been ambulatory and denies dizziness or lightheadedness. Review of Systems Review of Systems: Per HPI Physical Exam Physical Exam: Gen.: No acute distress. Alert. Less confused. HEENT: Anicteric sclera. Cardiac: Irregularly irregular. Normal S1-S2. 1/6 systolic murmur. Pulmonary: Clear to auscultation bilaterally without wheezes, rales, or rhonchi. Normal respiratory effort. Extremities: 2+ radial pulses bilaterally. 2+ posterior tibialis pulses bilaterally. Trace bilateral lower extremity edema. No cyanosis. Results & Data Vital Signs (Past 12 Hours) Vital Signs Temp Pulse Pulse Resp BP BP Pulse Ox 03/14/24 11:03 36.5 C 110 H 17 97/56 L 98 03/14/24 07:47 36.5 C 111 H 19 95/65 L 96 03/14/24 06:12 101 H 96/65 L 03/14/24 03:52 88 03/14/24 03:00 36.7 C 101 H 17 106/71 96 O2 Del Method 03/14/24 11:03 Room Air 03/14/24 07:47 Room Air 03/14/24 06:12 03/14/24 03:52 03/14/24 03:00 Room Air Laboratory Results Abnormal Lab Results 03/13/24 03/14/24 10:12 04:59 Sodium 133 L Potassium 3.8 Chloride 98 Carbon Dioxide 27 Anion Gap 8 BUN 29 H Creatinine 1.23 H Est Cr Clr Drug Dosing 33.6 Est GFR ( Amer) 46.3 Est GFR (Non-Af Amer) 40.0 BUN/Creatinine Ratio 23.6 H Glucose 120 H Calcium 8.8 Magnesium 2.2 SARS-CoV-2 (PCR) NEGATIVE Influenza Type A (PCR) Negative Influenza Type B (PCR) Negative RSV (RT-PCR) Negative PG Care Time/CCT Total # of Minutes Spent Total Time Spent with Patient: Total time spent is greater than 50% in coordination of care (as documented) at patient's floor/unit and/or counseling patient: Coding Level of Care Code 21939 SUB INP/OBS CARE 2/35MIN Diagnoses Paroxysmal atrial fibrillation I48.0 Heart failure with improved ejection fraction (HFimpEF) I50.32 Hypertension I10
[2024-03-14] MEDS: KETOROLAC TROMETHAMINE 15 MG/ML VIAL IV ONE (11:47)
[2024-03-14] MEDS: SODIUM CHLORIDE 0.9% 250 ML IV ONE (11:48)
--- NOTE | 2024-03-14 11:57 | CT Scan Report ---
CT OF THE LUMBAR SPINE CLINICAL HISTORY: left lower back pain, post op lumbar fusion COMPARISON STUDY: Lumbar spine MRI November 25, 2019. Lumbar spine radiographs May 09, 2023. Lumbar s pine fluoroscopic images March 09, 2024. TECHNIQUE: Helical axial images of the lumbar spine were obtained. Sagittal and coronal reconstruct ions were viewed. Automated exposure control was utilized for the study. A dose lowering technique was utilized adhering to the principles of ALARA. 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 There are bilateral parapelvic cysts. Several right renal calculi measure up to 4 mm there is no hydronephrosis. A suspected cystic lesion within the right upper hemipelvis is partially imaged. This measures at least 4.9 x 3.8 cm. There is mild asymmetric enlargement of the left psoas muscle wi th adjacent stranding and suspected small amount of hemorrhage. There are postoperative findings cons istent with left lateral L4-L5 discectomy with interbody spacer placement. The bilateral L4 and L5 pe dicle screws are intact. There is an acute mildly displaced fracture of the left transverse process o f L4. Skin maulik are noted. No unexpected radiopaque foreign bodies. There is mild anterolisthesis of L4 and L5. IMPRESSION: 1. Status post left lateral L4-L5 discectomy with interbody spacer placement with placement of L4 and L5 pedicle screws. Hardware intact. 2. Acute mildly displaced fracture of the left transverse process of L4. 3. Mild asymmetric enlargement of the left psoas muscle with adjacent stranding and a small amount of hemorrhage. The findings are likely postsurgical. 4. Cystic lesion within the right upper hemipelvis, partially imaged on this exam. This favors a cyst ic lesion arising from the right ovary which is indeterminate. A pelvic ultrasound is recommended. ACT 112: Negative or not required by law. Electronically signed by: Norm Tineo M.D. 03/14/2024 11:55 AM
[2024-03-14] MEDS: ACETAMINOPHEN 500 MG TAB PO PRN (14:13)
[2024-03-15 06:54] LABS: Basophils # (auto) 0.06 K/uL (0.00-0.20); Basophils % (auto) 0.7 %; Eosinophils # (auto) 0.65 K/uL (0.00-0.50); Eosinophils % (auto) 7.8 %; Hematocrit (blood only) 32.9 % (37.0-47.0); Hemoglobin 10.6 g/dl (12.0-16.0); Immature Granulocytes # (auto) 0.06 K/uL (0.01-0.20); Immature Granulocytes % (auto) 0.7 %; Lymphocytes # (auto) 0.79 K/uL (1.20-3.40); Lymphocytes % (auto) 9.4 %; Mean Corpuscular Hemoglobin 27.4 pg (25.0-34.0); Mean Corpuscular Hgb Conc 32.2 g/dL (32.0-36.0); Mean Platelet Volume 10.2 fL (9.4-12.4); Monocytes # (auto) 0.76 K/uL (0.11-0.59); Monocytes % (auto) 9.1 %; Neutrophils # (auto) 6.06 K/uL (1.40-6.50); Neutrophils % (auto) 72.3 %; Platelet Count 298 K/uL (130-400); RDW Coefficient of Variation 15.1 % (11.5-14.5); RDW Standard Deviation 46.7 fL (36.4-46.3); Red Blood Count 3.87 M/uL (4.20-5.40); White Blood Count 8.38 K/ul (4.8-10.8)
[2024-03-15 07:23] LABS: BUN Creatinine Ratio 27.7 (10-20); Calcium 8.9 mg/dl (8.6-10.3); Creatinine Clr Calc Pharmacy 34.8 ml/min; Est GFR (African American) 48.2 ml/min; Est GFR (Non-African American) 41.6 ml/min
--- NOTE | 2024-03-15 10:42 | Cardiology Progress Note ---
Date of Service March 15, 2024 Assessment & Plan (1) Paroxysmal atrial fibrillation: (2) Heart failure with improved ejection fraction (HFimpEF): (3) Hypertension: Plan ASSESSMENT/PLAN: 1. Atrial fibrillation with rapid ventricular response: Some improvement in heart rates, but still elevated. Fortunately, few symptoms. It would seem the best approach is likely cardioversion. Will continue rate control over the next 48 hours. Cardioversion could be entertained once that option is available earlier in the week. Continue systemic anticoagulation. 2. Heart failure with improved EF: LV systolic function has normalized. She is euvolemic. Can continue her home diuretic regimen. 3. Confusion: She seemed to answer questions appropriately today. 4. Hypertension: Blood pressure normal. Improved after some volume ministration. Tolerating antihypertensives and rate control agents. Admission and Anticipated Discharge Date Admission Date: March 09, 2024 Subjective This morning the patient's main complaint was left hip and back discomfort. She states that it is improved from yesterday. Not worsened with ambulation. She did report ambulating some yesterday. Not currently aware of any palpitations. No breathing difficulty. No dizziness or chest pain. Review of Systems Review of Systems: Per HPI Physical Exam Physical Exam: Gen.: No acute distress. Alert. Less confused. HEENT: Anicteric sclera. Cardiac: Irregularly irregular. Normal S1-S2. 1/6 systolic murmur. Pulmonary: Clear to auscultation bilaterally without wheezes, rales, or rhonchi. Normal respiratory effort. Extremities: 2+ radial pulses bilaterally. 2+ posterior tibialis pulses bilaterally. Trace bilateral lower extremity edema. No cyanosis. Results & Data Vital Signs (Past 12 Hours) Vital Signs Temp Pulse Pulse Resp BP Pulse Ox O2 Del Method 03/15/24 08:00 103 H 03/15/24 03:00 36.5 C 113 H 18 136/86 97 Room Air 03/14/24 23:05 36.6 C 111 H 18 123/73 94 Room Air Laboratory Results Abnormal Lab Results 03/15/24 06:33 WBC 8.38 RBC 3.87 L Hgb 10.6 L Hct 32.9 L MCV 85.0 MCH 27.4 MCHC 32.2 RDW Std Deviation 46.7 H RDW Coeff of Omar 15.1 H Plt Count 298 MPV 10.2 Immature Gran % (Auto) 0.7 Neut % (Auto) 72.3 Lymph % (Auto) 9.4 Harlan % (Auto) 9.1 Eos % (Auto) 7.8 Baso % (Auto) 0.7 Neut # (Auto) 6.06 Lymph # (Auto) 0.79 L Harlan # (Auto) 0.76 H Eos # (Auto) 0.65 H Baso # (Auto) 0.06 Immature Gran # (Auto) 0.06 Sodium 131 L Potassium 4.0 Chloride 96 L Carbon Dioxide 27 Anion Gap 8 BUN 33 H Creatinine 1.19 Est Cr Clr Drug Dosing 34.8 Est GFR ( Amer) 48.2 Est GFR (Non-Af Amer) 41.6 BUN/Creatinine Ratio 27.7 H Glucose 119 H Calcium 8.9 PG Care Time/CCT Total # of Minutes Spent Total Time Spent with Patient: Total time spent is greater than 50% in coordination of care (as documented) at patient's floor/unit and/or counseling patient: Coding Level of Care Code 33023 SUB INP/OBS CARE 2/35MIN Diagnoses Paroxysmal atrial fibrillation I48.0 Heart failure with improved ejection fraction (HFimpEF) I50.32 Hypertension I10
--- NOTE | 2024-03-15 17:02 | Hospitalist Progress Note ---
Date of Service March 15, 2024 Assessment & Plan (1) Lumbar stenosis with neurogenic claudication: Plan: S/p L4-L5 lateral lumbar interbody fusion with Dr. Acuña on 03/09 [place] lumbar spine x-ray revealed hardware intact Perioperative antibiotics, DVT PPx, per the primary team - On eliquis d/t afib Pain control regimen updated as she is very sensitive to medications and had been falling asleep while someone is talking to her - gabapentin 100 mg twice daily - Flexeril changed to 5 mg TID prn muscle spasms - Change Tylenol to 1g TID prn mild pain - as needed oxycodone 2.5-5mg tiered for pain scale - Urinalysis checked with patient's increased confusion - urine culture without growth. - COVID swab - negative - suspect confusion d/t multiple pain medications and post anesthesia, mentation back to baseline Repeat CT lumbar spine due to uncontrolled pain to r/o other pathology that could be contributing. Significant for acute mildly displaced fracture of the left transverse process of L4, and mild asymmetric enlargement of the left psoas muscle with adjacent stranding and a small amount of hemorrhage. > Dr. Acuña informed of these findings, no intervention necessary. > Additionally, noted cystic lesion from right ovary. Pelvic ultrasound recommended. Will discuss with patient and see if she is agreeable. (2) Paroxysmal atrial fibrillation: Plan: Continue amiodarone, metoprolol - pt reports she held these 3 days prior to surgery Eliquis resumed PM 03/11 HRs uncontrolled - ranging 100-120s - D/w Dr. Torres, d/c Amiodarone gtt, resume PO Amiodarone 200mg daily to resume 03/15 - Continue Metoprolol Succ 100mg daily - Cardizem PO q6 - has required cardioversion in the past but family declines cardioversion at present - Hold losartan/hctz d/t mildly bumped creat (1.13 to 1.23) & hypotension - fluid bolus ordered NSS 250 cc x1 (3) HFrEF (heart failure with reduced ejection fraction): Plan: Last echocardiogram 10/28/2023 EF 65-70, normal LV function Daily weights Strict I&O monitoring Takes lasix 40 prn with Potassium - Lasix morning dose given 03/12 - Patient is on a regular diet however poor oral intake, also with nutritional supplements. - Low salt, can liberalize fluid intake for time being (4) Hypertension: Plan: Continue metoprolol Hold ARB/HCTZ 03/14 d/t hypotension (5) Hypothyroidism: Plan: TSH checked well on amiodarone - low TSH, elevated T4 - patient has had multiple dose adjustments in the last year, will decrease dose to 75mcq Plan Resumed Preservision Updated daughter at bedside Reviewed telemetry Chronic stable medical conditions: * hx of breast cancer - continue exemestane Disposition: continued inpatient stay, treating afib RVR VTE PPx: Veronica Thank you for allowing us to participate in the care of this patient, please reach out with any questions or concerns; we will continue to follow. Admission and Anticipated Discharge Date Admission Date: March 09, 2024 Supervising Physician Co-Signing Physician Notes Attending Attestation - Chart reviewed, care plan d/w ANA Mishra. I agree w/ the feldman components of her documentation. A.fib rate control is still a problem despite amiodarone, etc -- possible elective cardioversion prior to hospital discharge. Jason Angela MD Subjective Patient seen and evaluated at bedside with daughter. She continues to endorse some left-sided hip pain. Additionally, she reports having some vision issues today. She notes that she was trying to read something today and it was "all jumbled up," but then when she looked at something else she was able to read that without problems. She is unable to tell me if it was bilateral or unilateral. Denies any URI symptoms, injury, or trauma to her eyes. She denies any headache, photophobia, gritty sensation, severe pain, stinging/burning, dryness, vision loss, or dark floating spots in her visual field. No crusting, excessive tearing, redness, stringy discharge, or swelling is noted on exam. We also discussed that her heart rate is improving, though it continues to remain elevated. We will continue rate control over the next 24-48 hours, then patient may require cardioversion early this week. No additional complaints or concerns at this time. Physical Exam Physical Exam: General: No acute distress, nondiaphoretic, well-developed, well-nourished. Skin: Surgical incisions with maulik intact. No drainage or bleeding appreciated. Ecchymosis along left flank. Cardiac: Irregularly irregular, tachycardic in the 90s-110. Pulm: Clear to auscultation bilaterally without wheezes, rales or rhonchi. No respiratory distress. 95% on room air. Abdominal: Soft, nontender, nondistended. Bowel sounds present. Neuro: A&O x3. No focal neurological deficits. Results & Data Results & Data Vital Signs (Past 12 Hours) Vital Signs Temp Pulse Pulse Resp BP Pulse Ox O2 Del Method 03/15/24 16:31 36.5 C 92 H 20 109/78 95 Room Air 03/15/24 11:34 36.4 C L 114 H 18 102/73 98 Room Air 03/15/24 08:00 103 H 03/15/24 07:30 36.6 C 110 H 18 116/69 97 Room Air Laboratory Results Reviewed CBC Reviewed BMP Diagnostic Findings Lumbar Spine CT 03/14/24 10:53 CT OF THE LUMBAR SPINE CLINICAL HISTORY: left lower back pain, post op lumbar fusion COMPARISON STUDY: Lumbar spine MRI November 25, 2019. Lumbar spine radiographs May 09, 2023. Lumbar spine fluoroscopic images March 09, 2024. TECHNIQUE: Helical axial images of the lumbar spine were obtained. Sagittal and coronal reconstructions were viewed. Automated exposure control was utilized for the study. A dose lowering technique was utilized adhering to the principles of ALARA. 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 There are bilateral parapelvic cysts. Several right renal calculi measure up to 4 mm there is no hydronephrosis. A suspected cystic lesion within the right upper hemipelvis is partially imaged. This measures at least 4.9 x 3.8 cm. There is mild asymmetric enlargement of the left psoas muscle with adjacent stranding and suspected small amount of hemorrhage. There are postoperative findings consistent with left lateral L4-L5 discectomy with interbody spacer placement. The bilateral L4 and L5 pedicle screws are intact. There is an acute mildly displaced fracture of the left transverse process of L4. Skin maulik are noted. No unexpected radiopaque foreign bodies. There is mild anterolisthesis of L4 and L5. IMPRESSION: 1. Status post left lateral L4-L5 discectomy with interbody spacer placement with placement of L4 and L5 pedicle screws. Hardware intact. 2. Acute mildly displaced fracture of the left transverse process of L4. 3. Mild asymmetric enlargement of the left psoas muscle with adjacent stranding and a small amount of hemorrhage. The findings are likely postsurgical. 4. Cystic lesion within the right upper hemipelvis, partially imaged on this exam. This favors a cystic lesion arising from the right ovary which is indeterminate. A pelvic ultrasound is recommended. ACT 112: Negative or not required by law. Electronically signed by: Norm Tineo M.D. 03/14/2024 11:55 AM PG Care Time/CCT Total # of Minutes Spent Total Time Spent with Patient: Total time spent is greater than 50% in coordination of care (as documented) at patient's floor/unit and/or counseling patient: Coding Level of Care Code 58823 SUB INP/OBS CARE 3/50MIN Diagnoses Lumbar stenosis with neurogenic claudication M48.062 Paroxysmal atrial fibrillation I48.0 HFrEF (heart failure with reduced ejection fraction) I50.20 Hypertension I10 Hypothyroidism E03.9
[2024-03-16 06:35] LABS: Hematocrit (blood only) 31.7 % (37.0-47.0); Hemoglobin 10.1 g/dl (12.0-16.0); Mean Corpuscular Hemoglobin 27.2 pg (25.0-34.0); Mean Corpuscular Hgb Conc 31.9 g/dL (32.0-36.0); Mean Corpuscular Volume 85.4 fL (80.0-100.0); Mean Platelet Volume 10.1 fL (9.4-12.4); Platelet Count 287 K/uL (130-400); RDW Standard Deviation 46.9 fL (36.4-46.3); Red Blood Count 3.71 M/uL (4.20-5.40); White Blood Count 6.09 K/ul (4.8-10.8)
[2024-03-16 07:11] LABS: Calcium 9.1 mg/dl (8.6-10.3); Creatinine Clr Calc Pharmacy 34.8 ml/min; Est GFR (African American) 47.7 ml/min; Est GFR (Non-African American) 41.2 ml/min; Potassium 3.9 mmol/L (3.5-5.1)
[2024-03-16] MEDS: CEROVITE ADV FORMULA TAB PO SCH (07:50)
--- NOTE | 2024-03-16 08:58 | Hospitalist Progress Note ---
Date of Service March 16, 2024 Assessment & Plan (1) Lumbar stenosis with neurogenic claudication: Plan: S/p L4-L5 lateral lumbar interbody fusion with Dr. Acuña on 03/09 [place] lumbar spine x-ray revealed hardware intact Perioperative antibiotics, DVT PPx, per the primary team. On Eliquis d/t a fib Patient expresses frustration and disappointment that ortho has not seen her for multiple days Pain control regimen updated as she is very sensitive to medications and had been falling asleep while someone is talking to her - Scheduled Tylenol 500 mg TID - Gabapentin 100 mg twice daily - Flexeril 5 mg TID PRN muscle spasms - [place] 0.5 tab Q6H PRN. If this is well-tolerated, can increased to full tab. - If pain is still uncontrolled, consider dexamethasone for 3-4 days - Urinalysis checked with patient's increased confusion - urine culture without growth. - COVID swab - negative - Suspect confusion was d/t multiple pain medications and post anesthesia, mentation back to baseline Repeat CT lumbar spine due to uncontrolled pain to r/o other pathology that could be contributing. Significant for acute mildly displaced fracture of the left transverse process of L4, and mild asymmetric enlargement of the left psoas muscle with adjacent stranding and a small amount of hemorrhage. - Dr. Acuña informed of these findings, no intervention necessary. - Additionally, noted cystic lesion from right ovary. Pelvic ultrasound recommended. > Discussed with patient and she is agreeable. Complete pelvic ultrasound ordered. (2) Paroxysmal atrial fibrillation: Plan: Continue amiodarone, metoprolol - pt reports she held these 3 days prior to surgery Eliquis resumed 03/11 Cardiology consulted, appreciate recommendations/assistance A fib with RVR --> HR remains elevated in 110s on 03/16, few symptoms fortunately. - Discontinued Amiodarone gtt, resumed PO Amiodarone 200mg daily - Continue Metoprolol Succ 100mg daily - Cardizem PO q6h - Hold losartan/hctz d/t mildly bumped creat (1.13 to 1.23) & hypotension - fluid bolus ordered NSS 250 cc x1 - Has required cardioversion previously, suspect will require cardioversion again during this hospitalization once it is available this week with cardiology. (3) HFrEF (heart failure with reduced ejection fraction): Plan: Last echocardiogram 10/28/2023 EF 65-70, normal LV function Daily weights Strict I&O monitoring Takes lasix 40 prn with Potassium - Lasix morning dose given 03/12 - Patient is on a regular diet however poor oral intake, also with nutritional supplements. - Low salt, can liberalize fluid intake for time being (4) Hypertension: Plan: Continue metoprolol Hold ARB/HCTZ 03/14 d/t hypotension (5) Hypothyroidism: Plan: TSH checked while on amiodarone - low TSH, elevated T4 - patient has had multiple dose adjustments in the last year, will decrease dose to 75mcq Plan Updated pain control regimen Ordered pelvic US Reviewed telemetry Chronic stable medical conditions: * hx of breast cancer - continue exemestane Disposition: continued inpatient stay, treating afib RVR VTE PPx: Eliquis Patient reports bilateral blurry vision when trying to read fine print. Recommend f/u appointment with her eye doctor, Dr. Cassidy, upon discharge. Thank you for allowing us to participate in the care of this patient, please reach out with any questions or concerns; we will continue to follow. Admission and Anticipated Discharge Date Admission Date: March 09, 2024 Supervising Physician Co-Signing Physician Notes Attending Attestation - Chart reviewed, care plan d/w PA Clarissa Mishra. I agree w/ the feldman components of her documentation. Ovarian lesion on imaging - Ms Mishra to discuss this with her. Tranfib - appreciate cardiology assistance. Jason Angela MD Subjective Patient seen and evaluated in bedside chair. She reports that she is doing a bit better today. She continues to have discomfort even at rest, but she notes that this is tolerable. However, she reports significant pain in her lower back with any movement or ambulation. She notes that the pain radiates into her gr oin, and sometimes radiates down her left leg to her knee. She expressed frustration and disappointment that she has not been seen by Ortho for multiple days. I did explain that Dr. Acuña was out of town this weekend. We discussed obtaining a pelvic ultrasound as it was recommended on the report of her CT A/P due to a cystic lesion on her right ovary. She is agreeable to a pelvic ultrasound. Her heart rate remains elevated in the 110s. She denies any palpitations, chest pain, shortness of breath, lightheadedness, dizziness. We discussed that she may require cardioversion prior to discharge. No additional complaints or concerns at this time. Physical Exam Physical Exam: General: No acute distress, nondiaphoretic, well-developed, well-nourished. Skin: Surgical incisions with maulik intact. No drainage or bleeding appreciated. Ecchymosis along left flank. 2+ pitting edema in LE bilaterally. Cardiac: Irregularly irregular, tachycardic in the 110s. Pulm: Clear to auscultation bilaterally without wheezes, rales or rhonchi. No respiratory distress. 95% on room air. Abdominal: Soft, nontender, nondistended. Bowel sounds present. Neuro: A&O x3. No focal neurological deficits. Results & Data Results & Data Vital Signs (Past 12 Hours) Vital Signs Temp Pulse Pulse Resp BP BP Pulse Ox 03/16/24 08:28 113 H 03/16/24 07:14 36.4 C L 106 H 19 117/63 97 03/16/24 03:24 36.5 C 105 H 15 104/72 96 03/16/24 00:00 36.4 C L 103 H 17 91/66 L 98 03/15/24 23:00 122 H O2 Del Method 03/16/24 08:28 03/16/24 07:14 Room Air 03/16/24 03:24 Room Air 03/16/24 00:00 Room Air 03/15/24 23:00 Laboratory Results Reviewed CBC Reviewed BMP PG Care Time/CCT Total # of Minutes Spent Total Time Spent with Patient: Total time spent is greater than 50% in coordination of care (as documented) at patient's floor/unit and/or counseling patient: Coding Level of Care Code 10896 SUB INP/OBS CARE 3/50MIN Diagnoses Lumbar stenosis with neurogenic claudication M48.062 Paroxysmal atrial fibrillation I48.0 HFrEF (heart failure with reduced ejection fraction) I50.20 Hypertension I10 Hypothyroidism E03.9
[2024-03-16] MEDS: ACETAMINOPHEN 500 MG TAB PO SCH (21:11)
[2024-03-17] MEDS: HYDROCODONE/ACETAMOPHEN 5/325MG TAB PO PRN (01:46)
[2024-03-17 05:19] LABS: Hematocrit (blood only) 29.3 % (37.0-47.0); Hemoglobin 9.5 g/dl (12.0-16.0); Mean Corpuscular Hemoglobin 27.2 pg (25.0-34.0); Mean Corpuscular Hgb Conc 32.4 g/dL (32.0-36.0); Mean Platelet Volume 10.2 fL (9.4-12.4); Platelet Count 268 K/uL (130-400); RDW Coefficient of Variation 14.9 % (11.5-14.5); RDW Standard Deviation 46.1 fL (36.4-46.3); Red Blood Count 3.49 M/uL (4.20-5.40); White Blood Count 6.88 K/ul (4.8-10.8)
[2024-03-17 05:35] LABS: Calcium 8.8 mg/dl (8.6-10.3)
[2024-03-17 05:40] LABS: BUN Creatinine Ratio 28.9 (10-20); Creatinine Clr Calc Pharmacy 32.6 ml/min; Est GFR (African American) 44.1 ml/min; Est GFR (Non-African American) 38.1 ml/min
--- NOTE | 2024-03-17 07:11 | Ultrasound Report ---
US pelvic complete HISTORY: 83 years-old Female F/u from CT A/P for cystic lesion R ovary right adnexal cystic focus in cidentally seen on prior CT lumbar spine. COMPARISON: CT lumbar spine 03/14/2024, CT abdomen and pelvis 02/05/2021 TECHNIQUE: Multiple real-time sonographic images of the deep pelvic structures were obtained transabd ominally assessing grayscale appearance and color flow FINDINGS: Anteflexed uterus measures 5.6 x 1.7 x 2.7 cm. No myometrial mass lesions identified. The endometrium measures approximately 4 mm. There is a lobular cystic lesion of the right adnexum redemonstrated measuring 6.8 x 3.9 x 4.6 cm whi ch is similar in size compared to the prior CT. Additionally, there is a cystic lesion in the left ad nexum measuring 3.0 x 2.4 x 2.1 cm which is also similar to prior. The ovaries are not well seen. No significant free pelvic fluid. No solid pelvic mass lesions. IMPRESSION: 1. Right greater than left bilateral adnexal cystic lesions appear stable compared to the CT study fr om 2020. 2. No solid mass lesions of the adnexa are identified. 3. Unremarkable sonographic appearance of the visualized uterus. ACT 112: Negative or not required by law. The above report was generated using voice recognition software. It may contain grammatical, syntax o r spelling errors. Electronically signed by: Blaise Mccain M.D. 03/17/2024 7:10 AM
--- NOTE | 2024-03-17 09:04 | Hospitalist Progress Note ---
Date of Service March 17, 2024 Assessment & Plan (1) Lumbar stenosis with neurogenic claudication: Plan: S/p L4-L5 lateral lumbar interbody fusion with Dr. Acuña on 03/09 [place] lumbar spine x-ray revealed hardware intact Perioperative antibiotics, DVT PPx, per the primary team. On Eliquis d/t a fib Patient expresses frustration and disappointment that ortho has not seen her for multiple days Pain control regimen updated as she is very sensitive to medications and had been falling asleep while someone is talking to her. * Tylenol 500 mg TID scheduled * Gabapentin 100mg PO BID * Flexeril 5mg TID PRN spasm * [place] 0.5mg tablet q6h prn * Consideration for dexamethasone if needed -- Dr Acuña to see today, pain does seem reasonable +BM 03/16, continue added colace BID to prevent constipation. UA negative. COVID negative Suspect confusion was d/t multiple pain medications and post anesthesia, mentation back to baseline and alert/oriented during discussion/encounter 03/[address] lumbar spine due to uncontrolled pain to r/o other pathology that could be contributing. Significant for acute mildly displaced fracture of the left transverse process of L4, and mild asymmetric enlargement of the left psoas muscle with adjacent stranding and a small amount of hemorrhage. acute fracture of L transverse process of L4, POA acute fracture of L transverse process of L4, not POA, a complication of care acute fracture of L transverse process of L4, not POA, not a complication of care - Dr. Acuña informed of these findings, no intervention necessary. Will see today Additionally, noted cystic lesion from right ovary. Pelvic ultrasound recommended. Pt agreeable, ordered. UNCHANGED> outpt f/u. No bleeding reported 03/17 Pain improving. +BM 03/16, passing gas/good appetite. HRs 90-100s. Electrolytes stable. Home HCTZ/losartan on hold for slight bump in Cr however appears weights up/LE edema and will order Lasix 40mg PO X 1 (with 20meq Kcl to keep K stores stable). Touching base w/ cards about timing for cardioversion. Remains on metoprolol, amiodarone. Eliquis BID Dr Torres to see this afternoon per discussion with Dr Ramirez/Dr Koch this morning. Can make NPO when able to arrange for cardioversion. Dr Acuña to see today given repeat CT lumbar spine findings as above. Pain control as outlined. (2) Paroxysmal atrial fibrillation: Plan: Continue amiodarone, metoprolol - pt reports she held these 3 days prior to surgery Eliquis resumed 03/11 Cardiology consulted A fib with RVR --> HR remained elevated in 110s on 03/16, few symptoms fortunately. Discontinued Amiodarone gtt, resumed PO Amiodarone 200mg daily Continue Metoprolol Succ 100mg daily Cardizem PO q6h Holding losartan/hctz d/t mildly bumped creat (1.13 to 1.23) & hypotension. Fluid bolus NSS 250cc x 1 provided - Has required cardioversion previously, suspect will require cardioversion again during this hospitalization once it is available this week with cardiology. 03/17 Remains on metoprolol, amiodarone 200mg daily. Cardizem PO q6h scheduled. HRs 90-100s/110s w/ activity. Mag/K replete. Ordered PO KCL w/ Lasix 40mg PO x 1 for volume status today. (weights up, LE edema, IVF day prior) Dr Torres to see today, possible cardioversion in AM if able to arrange? (3) HFrEF (heart failure with reduced ejection fraction): Plan: Last echocardiogram 10/28/2023 EF 65-70, normal LV function Lasix given 03/12. Low salt diet in place HCTZ/losartan on hold as above, was given IVF day prior but appears VOLUME UP TODAY 03/17 Lasix 40mg PO x 1, monitor volume status in AM (4) Hypertension: Plan: Continue metoprolol Hold ARB/HCTZ 03/14 d/t hypotension however ?related to rates. Tx of afib/RVR as above Lasix 40mg PO x 1 w/ slight drop in BP systolic to 97 however asymptomatic and improvement to 117/60 and tolerated cardizem, continued fro afib Monitor (5) Hypothyroidism: Plan: TSH checked while on amiodarone - low TSH, elevated T4 - patient has had multiple dose adjustments in the last year, will decrease dose to 75mcq Plan Chronic stable medical conditions: * hx of breast cancer - continue exemestane * Pelvic US w/ stable findings, unchanged. Discussed w/ daughter in room 03/17. Outpt f/u Disposition: continued inpatient stay, treating afib RVR . Cards to assist w/ cardioversion when able to arrange. Dr Acuña to see today Remains on eliquis BID Patient reports bilateral blurry vision when trying to read fine print. Recommend f/u appointment with her eye doctor, Dr. Cassidy, upon discharge. Thank you for allowing us to participate in the care of this patient, please reach out with any questions or concerns; we will continue to follow. Admission and Anticipated Discharge Date Admission Date: March 09, 2024 Supervising Physician Co-Signing Physician Notes The patient was not seen by me. The chart was reviewed. Case discussed with ANA Hogan. Agree with assessment and plan Subjective Evaluated this morning, sitting up in the chair. Pain control acceptable, slightly improved today. Moved her bowels yesterday 03/16. Passing gas, decent appetite. No CP/SOB, nausea/vomiting. Daughter at bedside, inquiring about timing for cardioversion. Will reach out to cardiology to see when available, possible tomorrow? Daughter leaving town to go back to [facility] tomorrow and sister Gabi will be coming on . Her number if needed is [phone]. Discussed LE appears w/ edema. Slight cough but no SOB, reports clearing her throat. Discussed slightly diminished in the bases along with edema and will give dose of lasix PO x 1 and monitor response. HCTZ/losartan on hold for now. Questions/concerns addressed at this time. Physical Exam Physical Exam: General: 83 yo female sitting up in the recliner chair, daughter in room, NAD HEENT head atraumatic, normocephalic, mmm, trachea midline Resp: diminished in the bases but no wheezing/rales, on room air CV: irregularly irregular, rates 90-100s/110s while getting up, b/l 2+ pitting edema, calves nontender , pulses present GI: +BS, soft/NT MSK/Neuro: dressing c/d/i, NVI, LE strength testing intact Psych: AOx3, cooperative with exam Results & Data Results & Data Vital Signs (Past 12 Hours) Vital Signs Temp Pulse Pulse Resp BP BP Pulse Ox 03/17/24 07:35 96 H 03/17/24 07:24 36.7 C 109 H 18 106/67 98 03/17/24 06:10 120 H 114/75 03/17/24 03:00 36.7 C 97 H 17 117/67 97 03/16/24 23:00 36.7 C 112 H 17 125/71 99 03/16/24 21:42 111 H O2 Del Method 03/17/24 07:35 03/17/24 07:24 Room Air 03/17/24 06:10 03/17/24 03:00 Room Air 03/16/24 23:00 Room Air 03/16/24 21:42 Laboratory Results 03/17/24 Range/Units 05:05 WBC 6.88 (4.8-10.8) K/ul RBC 3.49 L (4.20-5.40) M/uL Hgb 9.5 L (12.0-16.0) g/dl Hct 29.3 L (37.0-47.0) % MCV 84.0 (80.0-100.0) fL MCH 27.2 (25.0-34.0) pg MCHC 32.4 (32.0-36.0) g/dL RDW Std Deviation 46.1 (36.4-46.3) fL RDW Coeff of Omar 14.9 H (11.5-14.5) % Plt Count 268 (130-400) K/uL MPV 10.2 (9.4-12.4) fL Sodium 136 (136-145) mmol/L Potassium 4.0 (3.5-5.1) mmol/L Chloride 103 (98-107) mmol/L Carbon Dioxide 25 (21-32) mmol/L Anion Gap 8 (3-11) BUN 37 H (6-23) mg/dl Creatinine 1.28 H (0.6-1.2) mg/dl Est Cr Clr Drug Dosing 32.6 ml/min Est GFR ( Amer) 44.1 ml/min Est GFR (Non-Af Amer) 38.1 ml/min BUN/Creatinine Ratio 28.9 H (10-20) Glucose 109 H (70-99(Fasting)) mg/dl Calcium 8.8 (8.6-10.3) mg/dl Magnesium 2.3 (1.7-2.4) mg/dl Diagnostic Findings Pelvis Ultrasound 03/16/24 15:52 US pelvic complete HISTORY: 83 years-old Female F/u from CT A/P for cystic lesion R ovary right adnexal cystic focus incidentally seen on prior CT lumbar spine. COMPARISON: CT lumbar spine 03/14/2024, CT abdomen and pelvis 02/05/2021 TECHNIQUE: Multiple real-time sonographic images of the deep pelvic structures were obtained transabdominally assessing grayscale appearance and color flow FINDINGS: Anteflexed uterus measures 5.6 x 1.7 x 2.7 cm. No myometrial mass lesions identified. The endometrium measures approximately 4 mm. There is a lobular cystic lesion of the right adnexum redemonstrated measuring 6.8 x 3.9 x 4.6 cm which is similar in size compared to the prior CT. Additionally, there is a cystic lesion in the left adnexum measuring 3.0 x 2.4 x 2.1 cm which is also similar to prior. The ovaries are not well seen. No significant free pelvic fluid. No solid pelvic mass lesions. IMPRESSION: 1. Right greater than left bilateral adnexal cystic lesions appear stable compared to the CT study from 2020. 2. No solid mass lesions of the adnexa are identified. 3. Unremarkable sonographic appearance of the visualized uterus. ACT 112: Negative or not required by law. The above report was generated using voice recognition software. It may contain grammatical, syntax or spelling errors. Electronically signed by: Blaise Mccain M.D. 03/17/2024 7:10 AM PG Care Time/CCT Total # of Minutes Spent Total Time Spent with Patient: Total time spent is greater than 50% in coordination of care (as documented) at patient's floor/unit and/or counseling patient: Coding Level of Care Code 36059 SUB INP/OBS CARE 3/50MIN Diagnoses Lumbar stenosis with neurogenic claudication M48.062 Paroxysmal atrial fibrillation I48.0 HFrEF (heart failure with reduced ejection fraction) I50.20 Hypertension I10 Hypothyroidism E03.9
[2024-03-17] MEDS: FUROSEMIDE 40 MG TAB PO ONE (10:20)
[2024-03-17] MEDS: POTASSIUM CHLORIDE CRTAB 20 MEQ TABCR PO STA (10:20)
[2024-03-17 10:36] LABS: Magnesium 2.3 mg/dl (1.7-2.4)
[2024-03-17] MEDS: DOCUSATE SODIUM 100 MG CAP PO SCH (15:26)
--- NOTE | 2024-03-17 15:39 | Cardiology Progress Note ---
Date of Service March 17, 2024 Assessment & Plan (1) Paroxysmal atrial fibrillation: (2) Heart failure with improved ejection fraction (HFimpEF): (3) Hypertension: Plan ASSESSMENT/PLAN: 1. Atrial fibrillation with rapid ventricular response: Overall heart rates improved. Still mildly elevated at times. Will plan a cardioversion prior to discharge, possibly tomorrow. Continue systemic anticoagulation. 2. Heart failure with improved EF: LV systolic function has normalized. She is euvolemic. Can continue her home diuretic regimen. 3. Confusion: Resolved 4. Hypertension: Blood pressure normal. Admission and Anticipated Discharge Date Admission Date: March 09, 2024 Subjective This afternoon the patient claimed to be feeling better. She states that her symptoms have improved significantly since yesterday. By this she implies her hip pain is much better. She was ambulatory with a walker. No dizziness or lightheadedness. No sense of palpitations currently. No breathing difficulty. Review of Systems Review of Systems: Per HPI Physical Exam Physical Exam: Gen.: No acute distress. Alert. Less confused. HEENT: Anicteric sclera. Cardiac: Irregularly irregular. Normal S1-S2. 1/6 systolic murmur. Pulmonary: Clear to auscultation bilaterally without wheezes, rales, or rhonchi. Normal respiratory effort. Extremities: 2+ radial pulses bilaterally. 2+ posterior tibialis pulses bilaterally. Trace bilateral lower extremity edema. No cyanosis. Results & Data Vital Signs (Past 12 Hours) Vital Signs Temp Pulse Pulse Resp BP BP Pulse Ox 03/17/24 15:12 36.8 C 80 19 95/60 L 95 03/17/24 14:19 105 H 03/17/24 12:33 117/60 03/17/24 11:14 36.4 C L 100 H 19 97/63 L 96 03/17/24 08:00 03/17/24 07:35 96 H 03/17/24 07:24 36.7 C 109 H 18 106/67 98 03/17/24 06:10 120 H 114/75 O2 Del Method 03/17/24 15:12 Room Air 03/17/24 14:19 03/17/24 12:33 03/17/24 11:14 Room Air 03/17/24 08:00 Room Air 03/17/24 07:35 03/17/24 07:24 Room Air 03/17/24 06:10 Laboratory Results Abnormal Lab Results 03/17/24 05:05 WBC 6.88 RBC 3.49 L Hgb 9.5 L Hct 29.3 L MCV 84.0 MCH 27.2 MCHC 32.4 RDW Std Deviation 46.1 RDW Coeff of Omar 14.9 H Plt Count 268 MPV 10.2 Sodium 136 Potassium 4.0 Chloride 103 Carbon Dioxide 25 Anion Gap 8 BUN 37 H Creatinine 1.28 H Est Cr Clr Drug Dosing 32.6 Est GFR ( Amer) 44.1 Est GFR (Non-Af Amer) 38.1 BUN/Creatinine Ratio 28.9 H Glucose 109 H Calcium 8.8 Magnesium 2.3 PG Care Time/CCT Total # of Minutes Spent Total Time Spent with Patient: Total time spent is greater than 50% in coordination of care (as documented) at patient's floor/unit and/or counseling patient: Coding Level of Care Code 78329 SUB INP/OBS CARE 2/35MIN Diagnoses Paroxysmal atrial fibrillation I48.0 Heart failure with improved ejection fraction (HFimpEF) I50.32 Hypertension I10
--- NOTE | 2024-03-17 17:33 | Orthopedic Progress Note ---
Date of Service March 17, 2024 Subjective Patient seen and examined, talk with both the patient and her daughter. She reports that today she has noticed an improvement of the left hip type pain she has been describing, she still has some pain radiating anteriorly to about her knee. She has been doing better with physical therapy ambulating with a walker. Exam reveals the patient to be able to flex the left hip though not quite as notable as the right side at least in the 4 out of 5 range. Impression: Postop 1 week from surgery at L4-5 with some limited improvement today relative to the postoperative pain from the psoas hematoma and transverse process fracture at L4. Plan: My understanding is there going to try a cardioversion tomorrow, and depending on how she does from that potential transfer back to rehab facility pending medical clearance. I have urged her to do what ambulation she can and discussed the importance, she is in agreement with this plan. Review of Systems All systems reviewed & are unremarkable except as noted in HPI & below. Physical Exam . Results & Data Results & Data Laboratory Results . Diagnostic Findings . PG Care Time/CCT Total # of Minutes Spent Total Time Spent with Patient: Total time spent is greater than 50% in coordination of care (as documented) at patient's floor/unit and/or counseling patient: Coding Level of Care Code 67022 Post Operative Follow-Up
--- NOTE | 2024-03-18 08:33 | Hospitalist Progress Note ---
Date of Service March 18, 2024 Assessment & Plan (1) Lumbar stenosis with neurogenic claudication: Plan: S/p L4-L5 lateral lumbar interbody fusion with Dr. Acuña on 03/09 [place] lumbar spine x-ray revealed hardware intact Perioperative antibiotics, DVT PPx, per the primary team. On Eliquis d/t a fib Patient expresses frustration and disappointment that ortho has not seen her for multiple days Pain control regimen updated as she is very sensitive to medications and had been falling asleep while someone is talking to her. * Tylenol 500 mg TID JORGE, Gabapentin 100mg PO BID * Flexeril 5mg TID PRN, [place] 1/2 tablet q6h prn Repeat CT lumbar spine obtained 2nd to uncontrolled pain -- significant for acute mildly displaced fracture of the left transverse process of L4, and mild asymmetric enlargement of the left psoas muscle with adjacent stranding and a small amount of hemorrhage. Acute fracture of L transverse process of L4 does not appear present on arrival and may be complication of care/surgery. Dr Acuña aware of findings and no intervention required Did have some confusion but suspected 2nd to pain medications/anesthesia. Back to baseline and UA negative/COVID negative Additionally, noted cystic lesion from right ovary. Pelvic ultrasound rec ommended. Pt agreeable, ordered. UNCHANGED. outpt f/u. No bleeding reported 03/17 Pain improving. +BM 03/16, passing gas/good appetite. HRs 90-100s. Electrolytes stable. Home HCTZ/losartan on hold for slight bump in Cr however appears weights up/LE edema and will order Lasix 40mg PO X 1 (with 20meq Kcl to keep K stores stable). Touching base w/ cards about timing for cardioversion. Remains on metoprolol, amiodarone. Eliquis BID Dr Torres to see this afternoon per discussion with Dr Ramirez/Dr Koch this morning. Can make NPO when able to arrange for cardioversion. Dr Acuña to see today given repeat CT lumbar spine findings as above. Pain control as outlined. 03/18 NPO for cardioversion this morning, successful hoahaoism of NSR. Cardizem PO discontinued by cardiology. Remains on metoprolol, eliquis, amiodarone Was given Lasix 40mg PO x 1 on 03/17 with improvement in BUN/Cr from 37/1.28 to 33/1.19 with IMPROVEMENT in LEG SWELLING (reports best it's been in days) REPEAT LASIX 40mg PO for today, monitor renal function in AM but if renal function stable/BP stable will plan to resume her home HCTZ/losartan Hgb 8.9, however no increased bleeding. Did have prior noted LEFT psoas muscle hemorrhage however exam stable/improved and suspect could be from overload state. Can check iron studies for completeness. Monitor CBC in AM w/ continued diuresis Planning for rehab at [facility]. Notified CM to apply for auth yesterday (had ) and if no issues overnight will plan for discharge to [facility] for ongoing rehab in AM (2) Paroxysmal atrial fibrillation: Plan: Continue amiodarone, metoprolol - pt reports she held these 3 days prior to surgery Eliquis resumed 03/11 , cardiology consulted Holding losartan/hctz d/t mildly bumped creat (1.13 to 1.23) & hypotension. Fluid bolus NSS 250cc x 1 provided Had required cardioversion previously, suspect will require cardioversion again during this hospitalization once it is available this week with cardiology. Placed on amiodarone gtt, resumed 200mg PO daily and continued on metoprolol 100mg daily. Cardizem q6h PO added and cardioversion planned, rates relatively stable/not overtly symptomatic with such s/p cardioversion this morning with Dr Trores, back in [facility]. Remains on telemetry. Continues eliquis BID, metoprolol, amiodarone PO. Cardizem PO discontinued following cardioversion, rates in 60s presently Keep Mag/K replete Continue telemetry monitoring (3) HFrEF (heart failure with reduced ejection fraction): Plan: Last echocardiogram 10/28/2023 EF 65-70, normal LV function Was given lasix 03/12 but home HCTZ/losartan on hold due to hypotension (?2nd to rates/volume status) Appeared volume overloaded w/ increased LE edema and weights up in system and given Lasix 40mg PO on 03/17 with improvement in edema and renal function and will repeat for today Asked RN to obtain standing scale weights (had been bedscale, not accurate) Likely resumption of home HCTZ/losartan in AM if renal function continues stable w/ diuresis and BP stable to prevent hypotension as had last week Monitor UOP/volume status in AM (4) Hypertension: Plan: Stable, no further significant hypotension ARB/HCTZ on hold as above Remains on metoprolol Cardizem discontinued now s/p cardioversion and in NSR Provided lasix as above yesterday, repeat for today and if remaining stable w/ renal function stable/improved would plan to resume home ARB/HCTZ in AM Monitor (5) Hypothyroidism: Plan: TSH checked while on amiodarone TSH was LOW w/ elevated T4 and Synthroid REDUCED to 75mcg daily -- will need repeat TFT outpt in 4-6 wks/further adjustment as needed Also, patient reports bilateral blurry vision when trying to read fine print. Recommend f/u appointment with her eye doctor, Dr. Cassidy, upon discharge. Plan Chronic stable medical conditions: * hx of breast cancer - continue exemestane * Pelvic US w/ stable findings, unchanged. Discussed w/ daughter in room 03/17. Outpt f/u Disposition: continued inpatient stay, s/p cardioversion this morning and in NSR. Monitoring overnight/lasix as outlined but if stable/improved in AM will be planning for discharge to [facility]. CM notified to send for auth. Messaged Dr Acuña to relay should be able to go to [facility] if no issues overnight. Hospitalist service will follow along overnight. Please call with any questions/concerns. Admission and Anticipated Discharge Date Admission Date: March 09, 2024 Supervising Physician Co-Signing Physician Notes The patient was not seen by me. The chart was reviewed. Case discussed with ANA Hogan. Agree with assessment and plan Subjective Evaluated around lunch, patient sitting up in bed on the phone laughing with friend, eating lunch. Appears MUCH improved. Underwent cardioversion this morning and remains in NSR, rates in the 60s. Patient reports her leg swelling was the best it's been in days this morning. Discussed obtaining standing scale weights but also improvement in BUN/Cr and will plan for repeat dose today. She reports IMPROVEMENT in ability/discomfort when working with therapy today. Discussed will notify CM and if no issues overnight can plan for [facility] tomorrow. No fever/chills, chest pain, shortness of breath. Questions/concerns addressed at this time. Physical Exam Physical Exam: General: 83 yo female sitting up in bed eating lunch, laughing on the phone, appears/reports feeling MUCH improved today, NAD HEENT:head atraumatic, normocephalic, mmm, trachea midline Resp: diminished in the bases (improved) but no wheezing/rales, on room air CV: NSR, rates 60s on telemetry, no significant m/r/g, 1-2+ b/l LE edema, pulses present/calves nontender GI: +BS, soft/NT MSK/Neuro: dressing c/d/i, NVI, LE strength testing intact with equal dorsi/plantar flexion Psych: AOx3, cooperative with exam Results & Data Results & Data Vital Signs (Past 12 Hours) Vital Signs Temp Pulse Pulse Resp BP Pulse Ox O2 Del Method 03/18/24 07:10 36.7 C 127 H 19 111/78 98 Room Air 03/18/24 03:15 36.4 C L 112 H 18 149/84 H 97 Room Air 03/17/24 23:18 122 H 03/17/24 22:30 36.6 C 98 H 22 118/78 96 Room Air 03/17/24 22:00 03/17/24 21:11 Room Air O2 Del Method 03/18/24 07:10 03/18/24 03:15 03/17/24 23:18 03/17/24 22:30 03/17/24 22:00 Room Air 03/17/24 21:11 Laboratory Results 03/18/24 Range/Units 11:13 WBC 6.03 (4.8-10.8) K/ul RBC 3.20 L (4.20-5.40) M/uL Hgb 8.9 L (12.0-16.0) g/dl Hct 27.3 L (37.0-47.0) % MCV 85.3 (80.0-100.0) fL MCH 27.8 (25.0-34.0) pg MCHC 32.6 (32.0-36.0) g/dL RDW Std Deviation 46.8 H (36.4-46.3) fL RDW Coeff of Omar 15.0 H (11.5-14.5) % Plt Count 284 (130-400) K/uL MPV 10.1 (9.4-12.4) fL Sodium 138 (136-145) mmol/L Potassium 4.5 (3.5-5.1) mmol/L Chloride 104 (98-107) mmol/L Carbon Dioxide 28 (21-32) mmol/L Anion Gap 6 (3-11) BUN 33 H (6-23) mg/dl Creatinine 1.19 (0.6-1.2) mg/dl Est Cr Clr Drug Dosing 35.2 ml/min Est GFR ( Amer) 48.2 ml/min Est GFR (Non-Af Amer) 41.6 ml/min BUN/Creatinine Ratio 27.7 H (10-20) Glucose 98 (70-99(Fasting)) mg/dl Calcium 8.7 (8.6-10.3) mg/dl Magnesium 2.2 (1.7-2.4) mg/dl PG Care Time/CCT Total # of Minutes Spent Total Time Spent with Patient: Total time spent is greater than 50% in coordination of care (as documented) at patient's floor/unit and/or counseling patient: Coding Level of Care Code 49631 SUB INP/OBS CARE 3/50MIN Diagnoses Lumbar stenosis with neurogenic claudication M48.062 Paroxysmal atrial fibrillation I48.0 HFrEF (heart failure with reduced ejection fraction) I50.20 Hypertension I10 Hypothyroidism E03.9
--- NOTE | 2024-03-18 09:46 | Anesthesiology Consultation ---
Date of Service March 18, 2024 Assessment & Plan (1) Encounter for pre-operative examination: Chart Review Chart Review: Acceptable Risk for Surgery and Patient NOT seen in Pre Admission Testing Consults Requested none History Surgery Operation Date: 03/09/24 07:15 Proposed Procedures p L4-L5 Lateral Lumbar Interbody Fusion with Interbody Cage and Posterior Instrumentation, Spinal Cord Monitoring - Tom Acuña MD Operation Date: 03/18/24 11:30 Proposed Procedures p Cardioversion - Jhonatan Torres MD Height/Weight Height: 5 ft 2 in Weight: 86.1 kg Allergies Allergy/AdvReac Type Severity Reaction Status Date / Time NSAIDS (Non-Steroidal Allergy Severe RENAL Verified 03/09/24 06:13 Anti-Inflamma FAILURE adhesive Allergy Mild RASH Verified 03/09/24 06:13 latex Allergy Mild RASH Verified 03/09/24 06:13 procaine Allergy Mild prolonged Verified 03/09/24 06:13 effect amoxicillin AdvReac Intermediate Diarrhea Verified 03/09/24 06:13 orange AdvReac Intermediate "not Verified 03/09/24 06:13 supposed to take any citrus foods" orange juice AdvReac Intermediate "not Verified 03/09/24 06:13 supposed to take any citrus foods" pepper (genus Capsicum) AdvReac Intermediate "not Verified 03/09/24 06:13 supposed to take any due to an overactive bladder" sesame seed AdvReac Intermediate "not Verified 03/09/24 06:13 supposed to take any due to an overactive bladder" Medications Home Medications Medication Instructions Recorded Confirmed Last Taken cyanocobalamin (vitamin B-12) 500 1,000 mcg PO QDL 12/18/19 03/09/24 02/24/24 mcg tablet eriwphst-kqbj-kwpi 8 mg-folic 400 1 tab PO QDL 12/20/20 03/09/24 02/24/24 mcg-K 50 mcg-lutein 300 mcg tablet (Centrum Silver Women) clindamycin HCl 300 mg capsule 600 mg PO UD PRN prior to dental 05/18/21 03/09/24 Unknown procedure loratadine 10 mg tablet (Claritin) 10 mg PO QAM 04/29/23 03/09/24 03/08/24 09:50 omega-3 fatty acids 1,000 mg 2,000 mg PO QDL 04/29/23 03/09/24 02/24/24 capsule Saccharomyces boulardii 50 mg 50 mg PO BID 05/10/23 03/09/24 03/08/24 09:54 capsule exemestane 25 mg tablet 25 mg PO QDL 05/10/23 03/09/24 02/18/24 larxvgnclmv-hbp-gsxtuxfku-vitC 1 cap PO QDL 05/10/23 03/09/24 02/24/24 capsule (Glucosamine Complex-MSM capsule) apixaban 5 mg tablet (Eliquis) 5 mg PO BID #180 tabs 05/20/23 03/09/24 03/05/24 09:16 acetaminophen 650 mg 650 mg PO UD PRN Pain 12/04/23 03/09/24 03/08/24 23:25 tablet,extended release (Tylenol Arthritis Pain) Cbd Cream 1 dose topical BID 12/25/23 03/09/24 03/08/24 cholecalciferol (vitamin D3) 50 1,000 mcg PO QDL 12/25/23 03/09/24 02/24/24 mcg (2,000 unit) capsule (Vitamin D3) levothyroxine 100 mcg tablet 100 mcg PO QAM 12/25/23 03/09/24 03/09/24 05:30 losartan 50 mg-hydrochlorothiazide 1 tab PO QAM 12/25/23 03/09/24 03/08/24 09:42 12.5 mg tablet potassium chloride 20 mEq 20 meq PO DAILY PRN when taking 12/25/23 03/09/24 Unknown tablet,extended release lasix simvastatin 20 mg tablet 20 mg PO HS 12/25/23 03/09/24 03/08/24 21:45 vit C 250 mg-vit E 90 mg-zinc 40 1 tab PO BID 12/25/23 03/09/24 02/24/24 mg-copper 1 ou-kqydfd-wnphtu capsule (PreserVision AREDS-2) docusate sodium 50 mg/5 mL oral 50 mg PO DAILY PRN Constipation 12/31/23 03/09/24 03/07/24 liquid furosemide 40 mg tablet 40 mg PO DAILY PRN edema in feet 01/13/24 03/09/24 03/05/24 #90 tabs tramadol 50 mg tablet 50 mg PO BID PRN pain #30 tabs 01/28/24 03/09/24 Unknown metoprolol succinate 100 mg 100 mg PO DAILY #90 tabs 02/03/24 03/09/24 03/08/24 21:00 tablet,extended release 24 hr amiodarone 200 mg tablet 200 mg PO DAILY #90 tabs 02/10/24 03/09/24 03/08/24 12:56 oxycodone-acetaminophen 5 mg-325 1 tab PO BID #20 tabs 03/12/24 Unknown mg tablet Active Medications Generic Name Dose Route Start Last Admin Trade Name Fre PRN Reason Stop Dose Admin Acetaminophen 500 mg 03/16/24 21:00 03/18/24 07:46 Acetaminophen 500 Mg Tab PO 04/15/24 20:59 500 mg TID JORGE Administration Hydrocodone Bitart/Acetaminophen 0.5 tab 03/16/24 15:24 03/17/24 21:19 Hydrocodone/Acetamophen 5/325mg Tab PO 03/30/24 15:23 0.5 tab Q6H PRN Administration Pain Al Hydrox/Mg Hydrox/Simethicone 30 ml 03/09/24 11:54 03/10/24 18:19 Aluminum/Magnesium Susp 30 Ml Udc PO 04/08/24 11:53 30 ml Q6H PRN Administration Dyspepsia Amiodarone HCl 200 mg 03/10/24 09:00 03/18/24 07:43 Amiodarone 200 Mg Tab PO 04/09/24 08:59 200 mg DAILY JORGE Administration Apixaban 5 mg 03/11/24 21:00 03/18/24 07:43 Apixaban 5 Mg Tablet PO 04/10/24 20:59 5 mg BID JORGE Administration Docusate Sodium 100 mg 03/17/24 15:00 03/18/24 07:46 Docusate Sodium 100 Mg Cap PO 04/16/24 14:59 100 mg BID JORGE Administration Furosemide 40 mg 03/09/24 13:49 03/12/24 11:15 Furosemide 40 Mg Tab PO 04/08/24 13:48 40 mg DAILY PRN Administration edema in feet Gabapentin 300 mg 03/13/24 17:45 03/18/24 07:42 Gabapentin 300 Mg Cap PO 04/12/24 17:44 300 mg BID JORGE Administration HCTZ/Losartan Potassium 1 tab 03/10/24 09:00 03/13/24 08:53 Losartan/Hctz 50/12.5mg Tab PO 04/09/24 08:59 1 tab QAM JORGE Administration Levothyroxine Sodium 75 mcg 03/14/24 06:30 03/18/24 06:08 Levothyroxine Sodium 75 Mcg Tablet PO 04/13/24 06:29 75 mcg DAILYBB JORGE Administration Loratadine 10 mg 03/10/24 09:00 03/18/24 07:43 Loratadine 10 Mg Tab PO 04/09/24 08:59 10 mg QAM JORGE Administration Metoclopramide HCl 10 mg 03/09/24 11:54 03/09/24 18:53 Metoclopramide Hcl Inj 5 Mg/Ml 2 Ml Vial IV 04/08/24 11:53 10 mg Q6H PRN Administration Nausea &/or Vomiting Metoprolol Succinate 100 mg 03/10/24 09:00 03/18/24 07:42 Metoprolol Succ 50mg Ext Rel Tab PO 04/09/24 08:59 100 mg DAILY JORGE Administration Multivitamins/Minerals 1 tab 03/16/24 09:00 03/18/24 07:43 Cerovite Adv Formula Tab PO 04/15/24 08:59 1 tab DAILY JORGE Administration Ondansetron HCl 4 mg 03/09/24 11:54 03/11/24 11:42 Ondansetron Inj 2 Mg/Ml 2 Ml Vial IV 04/08/24 11:53 4 mg Q6H PRN Administration Nausea &/or Vomiting Potassium Chloride 20 meq 03/09/24 13:49 03/12/24 09:26 Potassium Chloride Crtab 20 Meq Tabcr PO 04/08/24 13:48 20 meq DAILY PRN Administration when taking lasix Senna/Docusate Sodium 2 tab 03/09/24 21:00 03/17/24 19:53 Docusate Sodium/Senna 50/8.6mg Tab PO 04/08/24 20:59 Not Given HS JORGE NPO Date Last Intake of Fluids: 03/08/24 Time Last Intake of Fluids: 23:30 Last Intake of Fluids Comment: sip at 0530 today with pill Date Last Intake of Solids: 03/08/24 Time Last Intake of Solids: 21:30 Past Medical History Medical History History of transesophageal echocardiography (ULI) (04/2023) Closed fracture of right proximal humerus (01/15/23) fell out of bed Renal angiomyolipoma GERD (gastroesophageal reflux disease) Well controlled and stable Depression Malignant neoplasm of lower-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) Orthopnea ongoing for many years per patient; denies change or worsening Claustrophobia Difficult intravenous access Pulmonary hypertension NSTEMI (non-ST elevated myocardial infarction) Type II demand NSTEMI 04/2023 in the setting of new A-fib RVR Urinary frequency Osteopenia Lumbar stenosis Hypertension Dyslipidemia Lumbar back pain Degenerative spondylolisthesis Degenerative joint disease involving multiple joints Cardiomyopathy History of anxiety no meds currently Angiomyolipoma of both kidneys Allergic rhinitis History of cardioversion 04/2023 @ [facility] Atrial fibrillation diagnosed 04/2023--follows with Dr. Koch--had cardioversion 12/27/23--on eliquis/metoprolol Lumbar radiculopathy, right Duodenal ulcer hx GI bleeding hx of 2020 Osteoarthritis Overactive bladder Hypothyroidism LVH (left ventricular hypertrophy) follows with Dr. Koch Past Family History Family History Unknown Aortic aneurysm Other No family history of adverse response to anesthesia Past Surgical History Surgical History History of total right knee replacement (TKR) 01/2021 @ [facility] History of left knee replacement History of colonoscopy History of lumpectomy of left breast (02/22/17) Left partial mastectomy with SLNB 02/22/17 Dr. Vora History of cholecystectomy History of tonsillectomy and adenoidectomy History of breast biopsy Social History Smoking Status: Never smoker Do You Dip or Chew Tobacco: No Hx Alcohol Use: No Alcohol type: wine alcohol intake frequency: holidays/special occasions only Hx Substance Use: No substance use type: does not use Physical Exam Vital Signs Last Vital Signs Temp 98.1 F 03/18/24 07:10 Pulse 129 H 03/18/24 09:36 Resp 19 03/18/24 07:10 BP 111/78 03/18/24 07:10 Pulse Ox 98 03/18/24 07:10 O2 Del Method Room Air 03/18/24 07:10 O2 Flow Rate 2 03/09/24 20:30 Testing Laboratory Results 03/17/24 05:05 03/17/24 05:05 Urine Color Yellow 03/11/24 Unknown Urine Appearance Cloudy (Clear) A 03/11/24 Unknown Urine pH 5.5 (4.5-7.5) 03/11/24 Unknown Ur Specific [place] 1.028 (1.000-1.030) 03/11/24 Unknown Urine Protein 1+ (Negative) H 03/11/24 Unknown Urine Glucose (UA) Negative (Negative) 03/11/24 Unknown Urine Ketones Negative (Negative) 03/11/24 Unknown Urine Nitrite Negative (Negative) 03/11/24 Unknown Ur Leukocyte Esterase Negative (Negative) 03/11/24 Unknown Urine WBC (Auto) 0-5 /hpf (0-5) 03/11/24 Unknown Urine RBC (Auto) >20 /hpf (0-2) H 03/11/24 Unknown U Hyaline Cast (Auto) 3-5 /lpf (0-2) H 03/11/24 Unknown U Epithel Cells (Auto) 0-2 /hpf (0-2) 03/11/24 Unknown Urine Bacteria (Auto) 1+ (None Seen) H 03/11/24 Unknown 03/11/24 Unknown Urine Culture - Final Urine,Clean Catch No growth - less than 1,000 colonies/mL. Electrocardiogram Date: 12/27/23 NSR, rate 78 bpm Cannot rule out anterior infarct, age undetermined Marked ST abnormality, possible inferolateral subendocardial injury Chest X-Ray Date: 12/27/23 *1view* 1. Cardiomegaly with no active disease in the chest. 2. A 1.4 cm indeterminate nodular density projects in the left upper lung. This may be artifactual. A chest CT is recommended for further assessment and to exclude underlying pulmonary lesion. Echocardiogram Date: 10/28/23 EF 65-70% No LV regional wall motion abnormalities Moderate cLVH Grade II diastolic dysfunction Stress Test Date: 01/22/19 MPHR 87% The ST segment changes following exercise meet diagnostic criteria for ischemia. However, the specificity is diminished by the baseline ST segment abnormalities. Resting echocardiogram with normal LV systolic function. Moderate cLVH. Mild RVH. Mild LA dilatation. No significant valvular abnormalities. METS 7 EF 65-70% Mild RVH
--- NOTE | 2024-03-18 10:38 | Anesthesiology Progress Note ---
Date of Service March 18, 2024 Anesthesia Post Procedure Vital Signs Vital Signs: Temp Pulse Pulse Resp BP BP Pulse Ox 03/18/24 10:21 104 H 16 135/89 98 03/18/24 09:51 03/18/24 09:36 129 H 03/18/24 07:10 98.1 F 127 H 19 111/78 98 03/18/24 03:15 97.5 F L 112 H 18 149/84 H 97 03/17/24 23:18 122 H 03/17/24 22:30 97.9 F 98 H 22 118/78 96 03/17/24 22:00 03/17/24 21:11 03/17/24 19:05 98.1 F 102 H 20 119/79 96 03/17/24 17:38 131/73 03/17/24 15:12 98.2 F 80 19 95/60 L 95 03/17/24 14:19 105 H 03/17/24 12:33 117/60 03/17/24 11:14 97.5 F L 100 H 19 97/63 L 96 O2 Del Method O2 Del Method 03/18/24 10:21 Room Air 03/18/24 09:51 Room Air 03/18/24 09:36 03/18/24 07:10 Room Air 03/18/24 03:15 Room Air 03/17/24 23:18 03/17/24 22:30 Room Air 03/17/24 22:00 Room Air 03/17/24 21:11 Room Air 03/17/24 19:05 Room Air 03/17/24 17:38 03/17/24 15:12 Room Air 03/17/24 14:19 03/17/24 12:33 03/17/24 11:14 Room Air Pain Intensity Back: Pain Intensity: 0 Left Hip: Pain Intensity: 7 Left Back: Pain Intensity: 4 Transfer of Care Handoff Completed per policy Notes Mental Status: alert / awake / arousable and participated in evaluation Patient Amnestic to Procedure: Yes Nausea / Vomiting: adequately controlled Pain: adequately controlled Airway Patency, RR, SpO2: stable & adequate BP & HR: stable & adequate Hydration State: stable & adequate Anesthetic Complications: no major complications apparent and Pt Satisfied with anesthetic care
--- NOTE | 2024-03-18 10:43 | Cardioversion ---
Date of Service March 18, 2024 PG Electrical Cardioversion Rp Electrical Cardioversion Report Procedure performed: Cardioversion Indication: The patient is an 83-year-old woman with a history of persistent atrial fibrillation who had previously undergone cardioversion. Staff system trainer: Jhonatan Torres MD Procedure in detail: The patient was informed of the risks benefits and alternatives to the intended procedure. She understood such which proceed. She was taken to the cardiac catheterization suite holding area. A general anesthetic was administered by the Anesthesiology Service. Once appropriately anesthetized, the patient was cardioverted using 200 joules delivered in a biphasic fashion. This returned the patient to sinus rhythm. The patient tolerated procedure well, there were no immediate complications. Patient was neurologically intact subsequent to the procedure. Impression: Successful cardioversion from atrial fibrillation to normal sinus rhythm Coding Level of Care Code 92822 CARDIOVERSION, ELECTIVE Additional Codes Electrical Cardioversion Report ([id number])
[2024-03-18 11:46] LABS: BUN Creatinine Ratio 27.7 (10-20); Calcium 8.7 mg/dl (8.6-10.3); Creatinine Clr Calc Pharmacy 35.2 ml/min; Est GFR (African American) 48.2 ml/min; Est GFR (Non-African American) 41.6 ml/min; Magnesium 2.2 mg/dl (1.7-2.4); Potassium 4.5 mmol/L (3.5-5.1)
[2024-03-18 11:51] LABS: Hematocrit (blood only) 27.3 % (37.0-47.0); Hemoglobin 8.9 g/dl (12.0-16.0); Mean Corpuscular Hemoglobin 27.8 pg (25.0-34.0); Mean Corpuscular Hgb Conc 32.6 g/dL (32.0-36.0); Mean Corpuscular Volume 85.3 fL (80.0-100.0); Mean Platelet Volume 10.1 fL (9.4-12.4); Platelet Count 284 K/uL (130-400); RDW Standard Deviation 46.8 fL (36.4-46.3); White Blood Count 6.03 K/ul (4.8-10.8)
[2024-03-18 13:36] LABS: Ferritin 125.7 ng/ml (8-388)
[2024-03-18] MEDS: FUROSEMIDE 40 MG TAB PO ONE (13:37)
--- NOTE | 2024-03-18 14:06 | Communication Note ---
Date of Service: March 18, 2024 CDS Query Acute diastolic HF - Acute on chronic diastolic HF. Suspect from holding diuretics (HCTZ/losartan combination pill, lasix prn)/IVF/steroids as well as possible afib/RVR. Was NOT hypoxic but weights appeared up and legs with increased edema. Improvement in ed kelly and renal function with home lasix 40mg PO x 1 and repeat dosing for today. Monitoring daily weights, I&O Hopeful ability to resume home HCTZ/losartan in AM which should help w/ maintaining volume status but will monitor volume/exam in AM to see if any additional lasix required.
[2024-03-19 06:36] LABS: Hematocrit (blood only) 26.4 % (37.0-47.0); Hemoglobin 8.4 g/dl (12.0-16.0); Mean Corpuscular Hgb Conc 31.8 g/dL (32.0-36.0); Mean Platelet Volume 10.2 fL (9.4-12.4); Platelet Count 246 K/uL (130-400); RDW Coefficient of Variation 15.1 % (11.5-14.5); RDW Standard Deviation 48.6 fL (36.4-46.3); White Blood Count 5.24 K/ul (4.8-10.8)
[2024-03-19 07:06] LABS: BUN Creatinine Ratio 28.1 (10-20); Calcium 8.7 mg/dl (8.6-10.3); Creatinine Clr Calc Pharmacy 32.6 ml/min; Est GFR (African American) 44.1 ml/min; Est GFR (Non-African American) 38.1 ml/min; Magnesium 2.2 mg/dl (1.7-2.4)
--- NOTE | 2024-03-19 07:52 | Hospitalist Progress Note ---
Date of Service March 19, 2024 Assessment & Plan (1) Lumbar stenosis with neurogenic claudication: Plan: S/p L4-L5 lateral lumbar interbody fusion with Dr. Acuña on 03/09 Xray post-op with intact hardware. Ongoing pain control and eliquis resumed post-operatively due to atrial fibrillation and cardiology was consulted and patient required amiodarone gtt/addition of cardizem PO q6h for rate control with cardioversion with Dr Torres on 03/18 and remaining in NSR subsequently. Patient did have uncontrolled pain post-operatively and CT lumbar spine repeated which noted acute mildly displaced fracture of LEFT transverse process of L4, mild asymmetric enlargement of the left psoas muscle with adjacent stranding and a small amount of hemorrhage. Acute fracture of L transverse process of L4 does not appear present on arrival and may be complication of care/surgery however no intervention planned. Do suspect patient with hgb level at 8.5 prior to discharge having some bleeding into hematoma on her left flank region on exam but not having any CP/SOB, no hypoxia and improvement in swelling with lasix 40mg PO x 2 doses (03/17, 03/18) as her HCTZ/losartan had been held due to hypotension/DOMENICO previously but suspect possibly some drops in BP 2nd to afib/RVR and weights reviewed prior to lasix and had been up to 86kg on 03/18 with pre-op weight listed at 79kg and improvement in leg swelling with lasix and improvement/stable renal function and home HCTZ/losartan resumed on day of discharge with monitoring and discussion that she may require additional dosing of lasix at rehab at [facility]. Hgb level was discussed with primary provider and did not feel needing to give any PRBC. Can continue to monitor blood counts/hematoma and given patient with stable HR/NSR, stable BP/renal function with diuretics and no complaints of CP/SOB/lightheadedness/dizziness or abdominal pain and recommended to have repeat CBC in next 24-48 hours for monitoring. Patient was moving bowels, good appetite and mentation at baseline prior to discharge. Stable for discharge from medical standpoint with close follow up on blood counts/hematoma and recs for repeat CBC as discussed. Contined on amiodarone PO daily, metoprolol 100mg for her atrial fibrillation. Cardizem discontinued following cardioversion. TSH was checked on amiodarone and was LOW with ELEVATED T4 and given her afib/RVR her synthroid was decreased to 75mcg daily and should have repeat TFT in 4-6 wks with outpatient providers/adjustment as needed. Additionally, noted cystic lesion from right ovary. Pelvic ultrasound recommended. Pt agreeable, ordered. UNCHANGED. outpt f/u. No bleeding reported (2) Paroxysmal atrial fibrillation: Plan: Hx of such, flipped into afib/RVR, cards consulted. Elialmas resumed post-op as above Was placed on amiodarone gtt as above (patient reported holding her amio/metoprolol 3 days prior to surgery), cardizem PO scheduled and metoprolol and cardiology consulted and underwent cardioversion with Dr Torres 03/18 with hindu of NSR and remained stable overnight. TSH was checked as above and LOW with elevated T4, on amiodarone with recent adjustments over the past year. Synthroid DECREASED to 75mcg, changed on med rec at discharge and recs for repeat testing/adjustment in follow up Kept K/mag replete. Outpt f/u and continued on amiodarone PO daily, metoprolol at discharge. (3) HFrEF (heart failure with reduced ejection fraction): Plan: Last echocardiogram in October w/ normal LV function. Was given lasix 03/12 but home HCTZ/losartan on hold due to hypotension (?2nd to rates/volume status however in question) Appeared volume overloaed w/ increased leg edema on 03/17 and review of weights in system as above with significant bump suspected 2nd to IVF/holding diuretics Lasix 40mg PO on 03/17 w/ good diuresis and improvement in BUN/Cr and was repeated on 03/18 with continued improvement and weights 86.9k on 03/17 to 85.9kg prior to discharge and resumed her HCTZ/lisinopril given stable/improved BP and no symptoms and was 128/71 with resumption of HCTZ/losartan this morning and discussed can continue to monitor for additoinal lasix dosing this week but not wanting to overdue it/damage kidneys Monitor volume status/additional prn lasix pending repeat weights. Outpt cardiology follow up recommended (4) Hypertension: Plan: Stable/improved w/ hindu of NSR and diuresis as outlined with improvement in renal function and home meds resumed as above Monitor for additional prn lasix at rehab (5) Hypothyroidism: Plan: TSH checked while on amiodarone TSH was LOW w/ elevated T4 and Synthroid REDUCED to 75mcg daily -- will need repeat TFT outpt in 4-6 wks/further adjustment as needed Also, patient reports bilateral blurry vision when trying to read fine print. Recommend f/u appointment with her eye doctor, Dr. Cassidy, upon discharge. Messaged nurse navigator to arrange but should be confirmed at discharge from rehab at the [facility]. Chronic stable medical conditions: Hx of breast cancer - continued exemestane. Pelvic US w/ stable findings, unchanged. Discussed w/ daughter in room 03/17. Outpt f/u Plan Dispo: [facility] for ongoing rehab planned. Transportation being arranged by case management for this afternoon and message sent to primary to complete discharge/summary. Changed synthroid on medication list and put recommendations for repeat monitoring of hemoglobin in next 24-48 hours Hospitalist service will SIGN OFF AT THIS TIME. Please call with any questions/concerns. Admission and Anticipated Discharge Date Admission Date: March 09, 2024 Supervising Physician Co-Signing Physician Notes The patient was not seen by me. The chart was reviewed. Case discussed with ANA Hogan. Agree with assessment and plan Subjective Evaluated this morning, sitting up in recliner eating breakfast. Feels well. Pain much improved. Does have some pain on the left side, discussed hematoma/h emorrhage on prior imaging but no PRBC per primary and to continue to monitor. Remains on eliquis and discussed can have repeat CBC at [facility] in next 48 hours to ensure stable. No CP/SOB, lightheaded/dizziness, BP 117/64. 98% on RA. Volume status improved since lasix. Discussed resuming her home losartan/HCTZ, will avoid further lasix for now but can monitor/use if needed. Auth still pending for [facility] this morning per CM but are hopeful to be received today and if so will plan for discharge. Physical Exam Physical Exam: General: 83 yo female sitting up in the chair today eating breakfast, reports feeling MUCH better today, improvement in pain, NAD HEENT:head atraumatic, normocephalic, mmm, trachea midline Resp: diminished in the bases (improved) but no wheezing/rales, on room air CV: NSR, rates 60s on telemetry, no significant m/r/g, 1-2+ b/l LE edema, pulses present/calves nontender GI: +BS, soft/NT MSK/Neuro: dressing c/d/i, NVI, LE strength testing intact with equal dorsi/plantar flexion Does have decently large hematoma/bruising on her LEFT flank/psoas region, hardened/slightly tender but no warmth/cellulitis. appears c/w hematoma Psych: AOx3, cooperative with exam Results & Data Results & Data Vital Signs (Past 12 Hours) Vital Signs Temp Pulse Pulse Resp BP Pulse Ox O2 Del Method 03/19/24 07:15 37.1 C 63 17 117/64 98 Room Air 03/19/24 03:01 37.0 C 61 16 115/69 97 Room Air 03/18/24 22:30 37.0 C 67 16 122/75 97 Room Air 03/18/24 22:00 03/18/24 21:32 70 03/18/24 21:10 Room Air 03/18/24 19:55 37.3 C 60 19 109/66 95 Room Air O2 Del Method 03/19/24 07:15 03/19/24 03:01 03/18/24 22:30 03/18/24 22:00 Room Air 03/18/24 21:32 03/18/24 21:10 03/18/24 19:55 Laboratory Results 03/19/24 03/18/24 Range/Units 05:30 11:13 WBC 5.24 (4.8-10.8) K/ul RBC 3.00 L (4.20-5.40) M/uL Hgb 8.4 L (12.0-16.0) g/dl Hct 26.4 L (37.0-47.0) % MCV 88.0 (80.0-100.0) fL MCH 28.0 (25.0-34.0) pg MCHC 31.8 L (32.0-36.0) g/dL RDW Std Deviation 48.6 H (36.4-46.3) fL RDW Coeff of Omar 15.1 H (11.5-14.5) % Plt Count 246 (130-400) K/uL MPV 10.2 (9.4-12.4) fL Sodium 138 (136-145) mmol/L Potassium 4.0 (3.5-5.1) mmol/L Chloride 103 (98-107) mmol/L Carbon Dioxide 29 (21-32) mmol/L Anion Gap 6 (3-11) BUN 36 H (6-23) mg/dl Creatinine 1.28 H (0.6-1.2) mg/dl Est Cr Clr Drug Dosing 32.6 ml/min Est GFR ( Amer) 44.1 ml/min Est GFR (Non-Af Amer) 38.1 ml/min BUN/Creatinine Ratio 28.1 H (10-20) Glucose 95 (70-99(Fasting)) mg/dl Calcium 8.7 (8.6-10.3) mg/dl Magnesium 2.2 (1.7-2.4) mg/dl Ferritin 125.7 (8-388) ng/ml PG Care Time/CCT Total # of Minutes Spent Total Time Spent with Patient: Total time spent is greater than 50% in coordination of care (as documented) at patient's floor/unit and/or counseling patient: Coding Level of Care Code 79781 SUB INP/OBS CARE 3/50MIN Diagnoses Lumbar stenosis with neurogenic claudication M48.062 Paroxysmal atrial fibrillation I48.0 HFrEF (heart failure with reduced ejection fraction) I50.20 Hypertension I10 Hypothyroidism E03.9
--- NOTE | 2024-03-19 08:37 | Orthopedic Progress Note ---
Date of Service March 19, 2024 Subjective Patient seen and examined, she notes improvement with cardioversion, continued left lumbosacral pain but improved. Incision sites unremarkable, no focal motor weakness. Impression/plan: Postoperative day 9 from L4-5 fusion. Status post cardioversion and improvement in postoperative incisional symptoms. Patient is cleared from an orthopedic standpoint for discharge when cleared by hospitalist. Follow-up in 1 week. Review of Systems All systems reviewed & are unremarkable except as noted in HPI & below. Physical Exam . Results & Data Results & Data Laboratory Results . Diagnostic Findings . PG Care Time/CCT Total # of Minutes Spent Total Time Spent with Patient: Total time spent is greater than 50% in coordination of care (as documented) at patient's floor/unit and/or counseling patient: Coding Level of Care Code 59801 Post Operative Follow-Up
--- NOTE | 2024-03-19 10:47 | Electrocardiogram Report ---
Test Reason : Blood Pressure : */* mmHG Vent. Rate : 59 BPM Atrial Rate : 59 BPM P-R Int : 190 ms QRS Dur : 106 ms QT Int : 476 ms P-R-T Axes : 75 7 131 degrees QTcB Int : 471 ms Sinus bradycardia Left ventricular hypertrophy with repolarization abnormality T wave inversions concerning for ischemia Abnormal ECG When compared with ECG of 13-Mar-2024 06:01, Sinus rhythm has replaced Atrial fibrillation Vent. rate has decreased by 57 bpm Confirmed by Jhonatan Torres ([id number]) on 03/19/2024 10:47:06 AM Referred By: Tom Acuña Confirmed By: Jhonatan Torres
[2024-03-19 11:19] VITALS: RESP 18; TEMP 98.1; O2SAT 96
[2024-03-19 13:30] VITALS: BP 128/71
--- NOTE | 2024-03-19 14:51 | Cardiology Progress Note ---
Date of Service March 19, 2024 Assessment & Plan (1) Paroxysmal atrial fibrillation: (2) Heart failure with improved ejection fraction (HFimpEF): (3) Hypertension: Plan ASSESSMENT/PLAN: 1. Atrial fibrillation with rapid ventricular response: Status post cardioversion yesterday. Overall doing well. Maintaining sinus rhythm. We can continue her current dose of amiodarone and metoprolol succinate. Continue systemic anticoagulation with apixaban, amiodarone and metoprolol succinate. 2. Heart failure with improved EF: LV systolic function has normalized. She is euvolemic. Can continue her home diuretic regimen. 3. Confusion: Resolved 4. Hypertension: Blood pressure normal. Admission and Anticipated Discharge Date Admission Date: March 09, 2024 Subjective This morning the patient clearly feeling quite well. She still has some mild hip discomfort, but was able to ambulate today with minimal pain. Not aware of any palpitations. Normal breathing. No dyspnea. No chest pain. Review of Systems Review of Systems: Per HPI Physical Exam Physical Exam: Gen.: No acute distress. Alert. Less confused. HEENT: Anicteric sclera. Cardiac: Regular.. Normal S1-S2. Systolic murmur noted. Pulmonary: Clear to auscultation bilaterally without wheezes, rales, or rhonchi. Normal respiratory effort. Extremities: 2+ radial pulses bilaterally. 2+ posterior tibialis pulses bilaterally. Trace bilateral lower extremity edema. No cyanosis. Results & Data Vital Signs (Past 12 Hours) Vital Signs Temp Pulse Pulse Resp BP BP Pulse Ox 03/19/24 13:57 36.7 C 56 L 18 103/61 128/71 96 03/19/24 13:22 36.7 C 56 L 18 103/61 128/71 96 03/19/24 11:18 36.7 C 56 L 18 103/61 96 03/19/24 08:15 03/19/24 07:15 37.1 C 63 17 117/64 98 03/19/24 07:00 64 03/19/24 03:01 37.0 C 61 16 115/69 97 O2 Del Method 03/19/24 13:57 03/19/24 13:22 03/19/24 11:18 Room Air 03/19/24 08:15 Room Air 03/19/24 07:15 Room Air 03/19/24 07:00 03/19/24 03:01 Room Air Laboratory Results Abnormal Lab Results 03/19/24 05:30 WBC 5.24 RBC 3.00 L Hgb 8.4 L Hct 26.4 L MCV 88.0 MCH 28.0 MCHC 31.8 L RDW Std Deviation 48.6 H RDW Coeff of Omar 15.1 H Plt Count 246 MPV 10.2 Sodium 138 Potassium 4.0 Chloride 103 Carbon Dioxide 29 Anion Gap 6 BUN 36 H Creatinine 1.28 H Est Cr Clr Drug Dosing 32.6 Est GFR ( Amer) 44.1 Est GFR (Non-Af Amer) 38.1 BUN/Creatinine Ratio 28.1 H Glucose 95 Calcium 8.7 Magnesium 2.2 PG Care Time/CCT Total # of Minutes Spent Total Time Spent with Patient: Total time spent is greater than 50% in coordination of care (as documented) at patient's floor/unit and/or counseling patient: Coding Level of Care Code 61359 SUB INP/OBS CARE 2/35MIN Diagnoses Paroxysmal atrial fibrillation I48.0 Heart failure with improved ejection fraction (HFimpEF) I50.32 Hypertension I10
[2024-03-19 15:09] VITALS: PULSE 58
== END 2024-03-19 15:07 | DRG 459 ==
LOC: ASU 05:39 → 3E 11:54 → 2W 03-10 14:41 → 4W 03-12 18:15

== ENCOUNTER 2024-04-16 08:59 | Observation (INO) ==
[2024-04-16] MEDS: ACETAMINOPHEN 1,000 MG/100 ML VIAL IV STA (10:16)
[2024-04-16] MEDS: SODIUM CHLORIDE 0.9% 1,000 ML IV SCH (10:16)
[2024-04-16 10:25] LABS: Basophils # (auto) 0.03 K/uL (0.00-0.20); Basophils % (auto) 0.3 %; Eosinophils # (auto) 0.12 K/uL (0.00-0.50); Eosinophils % (auto) 1.2 %; Hematocrit (blood only) 36.8 % (37.0-47.0); Immature Granulocytes # (auto) 0.21 K/uL (0.01-0.20); Immature Granulocytes % (auto) 2.1 %; Lymphocytes # (auto) 1.51 K/uL (1.20-3.40); Mean Corpuscular Hemoglobin 27.9 pg (25.0-34.0); Mean Corpuscular Hgb Conc 32.6 g/dL (32.0-36.0); Mean Corpuscular Volume 85.6 fL (80.0-100.0); Monocytes # (auto) 1.02 K/uL (0.11-0.59); Monocytes % (auto) 10.1 %; Neutrophils # (auto) 7.21 K/uL (1.40-6.50); Neutrophils % (auto) 71.3 %; Platelet Count 353 K/uL (130-400); RDW Coefficient of Variation 15.2 % (11.5-14.5); RDW Standard Deviation 47.6 fL (36.4-46.3)
[2024-04-16] MEDS: dilTIAZem HCL 300 MG CAPCR PO STA (10:26)
--- NOTE | 2024-04-16 10:26 | Emergency Department Note ---
Impression & Plan Hip pain, left ED Provider Note ED Provider Note NAME: EVANS DASILVA AGE:83 SEX: Female : 1940 ARRIVES VIA: EMS INFORMANT: Patient ED PROVIDER(s): Gina Spivey DO CHIEF COMPLAINT: Left hip and groin pain, cannot walk HPI: This is an 83-year-old female who presents emergency department due to worsening left hip, left groin, and left lower extremity pain. Patient states she underwent back surgery the end of February by Dr. Smith. She states she has had worsening symptoms since that time. She states she was using tramadol but did not think it helped and also felt it contributed to her constipation. She states she was just weaned off that. She states it was very difficult to try and get an appointment to follow-up with her back specialist but she saw him in the office yesterday. She states he prescribed another pain medication but she felt even worse this morning. She states that has been getting harder and harder for her to ambulate and perform her ADLs even using her walker. She states prior to surgery she did not always need her walker and does live independently at the [facility]. She denies fevers or chills, abdominal pain, or paresthesias. She states pain is in the left hip and left groin and now feels as though it goes down the top of her leg to the left knee. She denies any increased lower extremity edema. She does wear compression stockings daily. She states the pain is so that she feels unsteady and now when she walks and is concerned she may fall. PAST MEDICAL HISTORY:See Below PAST SURGICAL HISTORY:See Below FAMILY HISTORY:See Below SOCIAL HISTORY:See Below HOME MEDICATIONS:See Below ALLERGIES:See Below VITALS:See Below PHYSICAL EXAMINATION: GENERAL: alert, well appearing, well nourished, no distress, non-toxic EYE EXAM: normal conjunctiva, PERRL and EOM's grossly intact OROPHARYNX: no exudate, no erythema, lips, buccal mucosa, and tongue normal and mucous membranes are moist NECK: supple, no nuchal rigidity, no adenopathy, non-tender LUNGS: Clear to auscultation. Normal chest wall mechanics, no w/r/r HEART: no murmurs, S1 normal and S2 normal ABDOMEN: abdomen soft, non-tender, normo-active bowel sounds, no masses, no rebound or guarding. BACK: Back is symmetrical on inspection and there is no deformity, no midline tenderness, no CVA tenderness. SKIN: no rashes, petechiae, orbruising UPPER EXTREMITIES: upper extremities are grossly normal. FROM, nml pulses b/l. LOWER EXTREMITIES: No pitting edema. FROM, nml pulses b/l. Well-healed vertical incisions over bilateral knees consistent with prior surgery. Compression stockings in place to bilateral lower extremities. Pain with palpation over the left lateral hip. NEURO EXAM: Normal sensorium, cranial nerves II-XII grossly intact, normal speech, no facial droop,nogross weakness of arms, no gross weakness of legs. Gross sensation intact. No ataxia. Vital Signs: reviewed and remarkable Differential Diagnosis: Postop infection, postop seroma, postop hematoma, lumbar radiculopathy, muscle strain, facture, cauda equina, mass, and disc herniation, as well as others were considered MEDICAL DECISION MAKING: This is an 83-year-old female presents emergency department due to worsening left groin and left hip pain affecting her ability to walk and stand even with use of an ambulatory aid. Patient underwent a spinal surgery 6 to 7 weeks ago, did complete rehab, did recently wean down off of tramadol which she felt was not helpful as well as recent steroid taper. She states she has been having increased left groin and left hip pain since the surgery was which has not improved following rehab. She states the pain medication did not help additionally. She states now she is quicker she cannot walk. Labs drawn and sent, IV established, EKG and chest ray performed at bedside interpreted me and patient monitored on telemetry. After review of recent procedure and discussion at bedside, patient sent for CT. This is being performed, case discussed with her aviation medicine specialist. He felt symptoms were unlikely related to the procedure and is less concerned that she has an occult infection or complication related to the procedure. He feels there is likely irritation to the nerves which should slowly improve over agrees with plan to rule out other pathology. He did see her in the office yesterday and noted perhaps an additional compression fracture at L3 which is new. Patient denies any additional trauma. I did speak with him again following results of the CT. Given patient's need for improved pain control and her current ambulatory dysfunction as she lives in an independent section, case discussed with the hospitalist team for additional evaluation and ultimate change in her current level of care/placement Consultation(s): 1044: Discussed with Dr. Acuña. States patient does not need a spine consult. He states he spent 40 minutes in the office with her yesterday going over all recent results and examining her. He states he offered her additional medication with the caveat that she would need a better bowel regimen in order to prevent constipation which she said had occurred with using tramadol. He states he also wrote to start gabapentin, 300 mg once daily for several days and then to increase to twice daily for another 4 to 5 days before going to 3 times daily. He states he believes additional rehab would be beneficial for the patient and that if she is having increasing pain that is limiting her walking she should not be left alone. He feels this is unlikely an acute complication from the surgical procedure as the CTs of otherwise been well-appearing. He states upon his review and repeat x-rays in the office visit yesterday he did think there was perhaps a small compression fracture at L3 which appeared new to his eye compared to prior. 1325: DIscussed with Dr. López, [facility] hospitalist team, for additional evaluation and management. ER Treatment Provided: See below Diagnostics Interpreted By Me: -ECG: Atrial fibrillation at a rate of 148, normal axis, normal intervals, ST depression noted in 1, 2, and aVL -Cardiac Monitoring: An order was placed for continuous cardiac monitoring. The monitor shows a rate of 150 with A-fib rhythm. -Laboratory studies: As stated above and show below. -Imaging studies: X-ray Chest: A single view study of the chest was reviewed and was negative for cardiomegaly, focal infiltrate, effusion, pulmonary edema, or wide mediastinum. Triage Nursing Note Reviewed Prior/Outside Records Reviewed -outpatient office visit from Dr. Acuña. Past Med/Surg History Problem List (Updated 04/16/24 @ 10:26 by Gina Spivey DO) Hip pain, left (Acute) Lumbar compression fracture Inferior endplate L3. Paroxysmal atrial fibrillation with RVR Back pain (Acute) Cognitive decline History of lumbar fusion Heart failure with improved ejection fraction (HFimpEF) SOB (shortness of breath) History of breast cancer Dx 2017 left breast; h/o lumpectomy + radiation-no limb restriction Heart failure with recovered ejection fraction (HFrecEF) Paroxysmal atrial fibrillation Lumbar stenosis with neurogenic claudication Low back pain radiating to left lower extremity Degenerative spondylolisthesis HFrEF (heart failure with reduced ejection fraction) Cardiomyopathy Heart failure with mid-range ejection fraction Left hip pain Rotator cuff arthropathy History of left breast cancer Rotator cuff arthropathy of both shoulders Lumbar spondylosis Anemia (Acute) Dyslipidemia Urinary frequency Bunion, left foot Degenerative joint disease of left midfoot Degenerative joint disease of right midfoot Trigger finger of right hand Osteopenia (Acute) Insomnia Hypothyroidism Hypertension Degenerative joint disease, multiple joints on both sides of body Anxiety Allergic rhinitis (Acute) Medical History History of transesophageal echocardiography (ULI) (04/2023) Closed fracture of right proximal humerus (01/15/23) Renal angiomyolipoma GERD (gastroesophageal reflux disease) Depression Malignant neoplasm of lower-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) Orthopnea Claustrophobia Difficult intravenous access Pulmonary hypertension NSTEMI (non-ST elevated myocardial infarction) Urinary frequency Osteopenia Lumbar stenosis Hypertension Dyslipidemia Lumbar back pain Degenerative spondylolisthesis Degenerative joint disease involving multiple joints Cardiomyopathy History of anxiety Angiomyolipoma of both kidneys Allergic rhinitis History of cardioversion Atrial fibrillation Lumbar radiculopathy, right Duodenal ulcer GI bleeding Osteoarthritis Overactive bladder Hypothyroidism LVH (left ventricular hypertrophy) Surgical History History of total right knee replacement (TKR) History of left knee replacement History of colonoscopy History of lumpectomy of left breast (02/22/17) History of cholecystectomy History of tonsillectomy and adenoidectomy History of breast biopsy Family History Unknown Aortic aneurysm Other No family history of adverse response to anesthesia Social History Smoking Status: Never smoker Second Hand Exposure: No; Do You Dip or Chew Tobacco: No; Hx Alcohol Use: No Hx Substance Use: No Preferred Language: Romanian Communication Ability: Effective Visual Impairment: Partially Limited Residential Installer Required: No Beliefs That Will Affect Care: None marital status: / Current Living Situation Comment: [facility] current occupational status: retired How many Children do You have: 2 Other Information That Helps Us Care for You: No Feels Safe at Home: Yes Safety Concerns: Feels Safe At This Time Assistive Devices: Glasses and Walker Allergies Allergies Allergy/AdvReac Type Severity Reaction Status Date / Time NSAIDS (Non-Steroidal Allergy Severe RENAL Verified 04/14/24 10:18 Anti-Inflamma FAILURE adhesive Allergy Mild RASH Verified 04/14/24 10:18 latex Allergy Mild RASH Verified 04/14/24 10:18 procaine Allergy Mild prolonged Verified 04/14/24 10:18 effect amoxicillin AdvReac Intermediate Diarrhea Verified 04/14/24 10:18 orange AdvReac Intermediate "not Verified 04/14/24 10:18 supposed to take any citrus foods" orange juice AdvReac Intermediate "not Verified 04/14/24 10:18 supposed to take any citrus foods" pepper (genus Capsicum) AdvReac Intermediate "not Verified 04/14/24 10:18 supposed to take any due to an overactive bladder" sesame seed AdvReac Intermediate "not Verified 04/14/24 10:18 supposed to take any due to an overactive bladder" Home Meds Home Medications Medication Instructions Recorded Confirmed [id number] 8 mg-folic 400 1 tab PO QDL 12/20/20 04/16/24 mcg-K 50 mcg-lutein 300 mcg tablet (Centrum Silver Women) clindamycin HCl 300 mg capsule 600 mg PO UD PRN prior to dental 05/18/21 04/16/24 procedure loratadine 10 mg tablet (Claritin) 10 mg PO QAM 04/29/23 04/16/24 omega-3 fatty acids 1,000 mg 2,000 mg PO QDL 04/29/23 04/16/24 capsule Saccharomyces boulardii 50 mg 50 mg PO BID 05/10/23 04/16/24 capsule lwetgixcyee-vfg-pucfrukii-vitC 1 cap PO QDL 05/10/23 04/16/24 capsule (Glucosamine Complex-MSM capsule) acetaminophen 650 mg 650 mg PO UD PRN Pain 12/04/23 04/16/24 tablet,extended release (Tylenol Arthritis Pain) Cbd Cream 1 dose topical BID 12/25/23 04/16/24 potassium chloride 20 mEq 0 meq PO DAILY PRN when taking 12/25/23 04/16/24 tablet,extended release lasix simvastatin 20 mg tablet 20 mg PO HS 12/25/23 04/16/24 vit C 250 mg-vit E 90 mg-zinc 40 1 tab PO BID 12/25/23 04/16/24 mg-copper 1 gj-nzkigk-precdq capsule (PreserVision AREDS-2) docusate sodium 50 mg/5 mL oral 50 mg PO DAILY PRN Constipation 12/31/23 04/16/24 liquid calcium 500 mg (as 1 tab PO QDL 04/16/24 04/16/24 carbonate)-vitamin D3 15 mcg (600 unit) tablet (Os-Glenn 500 + D3) calcium glycerophosphate 130 mg PO UD PRN When eating 04/16/24 04/16/24 problem food cyanocobalamin (vitamin B-12) 1,000 mcg PO QDL 04/16/24 04/16/24 1,000 mcg tablet (Vitamin B-12) famotidine 40 mg tablet 40 mg PO QAM 04/16/24 04/16/24 fluticasone propionate 50 2 spray intranasal QAM 04/16/24 04/16/24 mcg/actuation nasal spray,suspension gabapentin 300 mg capsule See Rx Instructions .Route .COMPLEX 04/16/24 04/16/24 hydrocodone 5 mg-acetaminophen 325 0 tab PO BID PRN pain 04/16/24 04/16/24 mg tablet levothyroxine 100 mcg tablet 100 mcg PO DAILY 04/16/24 04/16/24 melatonin 5 mg tablet 5 mg PO HS PRN Sleep 04/16/24 04/16/24 metoprolol succinate 100 mg 100 mg PO DAILY 04/16/24 04/16/24 tablet,extended release 24 hr prednisone 20 mg tablet See Rx Instructions .Route .COMPLEX 04/16/24 04/16/24 Previous Rx's Medication Instructions Recorded apixaban 5 mg tablet (Eliquis) 5 mg PO BID #180 tabs 05/20/23 furosemide 40 mg tablet 40 mg PO DAILY PRN edema in feet 01/13/24 #90 tabs amiodarone 200 mg tablet 200 mg PO DAILY #90 tabs 02/10/24 diclofenac sodium 1 % topical gel 4 g topical QID #100 grams 04/09/24 (Voltaren Arthritis Pain) losartan 50 mg-hydrochlorothiazide 1 tab PO QAM #90 tabs 04/09/24 12.5 mg tablet tramadol 50 mg tablet 50 mg PO BID PRN pain #30 tabs 04/10/24 Results & Data (ED) Vital Signs Vital Signs - 24 hr 04/16/24 09:25 04/16/24 09:32 04/16/24 09:32 Temperature 36.6 C Temperature Source Oral Pulse Rate 140 H 138 H Pulse Rate [Apical] Pulse Rate from SpO2 Sensor Pulse Rhythm Irregular Respiratory Rate 22 20 22 Respiratory Effort / Characteristics Non-Labored Non-Labored Respiratory Depth Normal Normal Blood Pressure 148/116 H Blood Pressure [Right Arm] Blood Pressure Mean 126 Blood Pressure Mean [Right Arm] Blood Pressure Position Sitting Blood Pressure Position [Right Arm] Pulse Oximetry 97 90 Oxygen Delivery Method Room Air Room Air Sepsis Recent Fever Within 48 Hours No Sepsis New/Unexplained Change in Mental Status No Sepsis Action Taken by Nursing No Action Required 04/16/24 09:57 04/16/24 10:27 04/16/24 11:26 Temperature Temperature Source Pulse Rate 133 H 147 H Pulse Rate [Apical] 148 H Pulse Rate from SpO2 Sensor 140 H Pulse Rhythm Respiratory Rate 21 22 Respiratory Effort / Characteristics Non-Labored Respiratory Depth Normal Blood Pressure 154/117 H Blood Pressure [Right Arm] 148/109 H Blood Pressure Mean 129 Blood Pressure Mean [Right Arm] 122 Blood Pressure Position Blood Pressure Position [Right Arm] Lying Pulse Oximetry 97 97 Oxygen Delivery Method Room Air Sepsis Recent Fever Within 48 Hours Sepsis New/Unexplained Change in Mental Status Sepsis Action Taken by Nursing 04/16/24 11:31 04/16/24 11:45 04/16/24 12:08 Temperature Temperature Source Pulse Rate 141 H Pulse Rate [Apical] 117 H Pulse Rate from SpO2 Sensor 137 H Pulse Rhythm Respiratory Rate 26 H 24 Respiratory Effort / Characteristics Respiratory Depth Normal Blood Pressure 151/115 H 151/115 H Blood Pressure [Right Arm] Blood Pressure Mean 130 127 Blood Pressure Mean [Right Arm] Blood Pressure Position Blood Pressure Position [Right Arm] Pulse Oximetry 97 96 Oxygen Delivery Method Room Air Sepsis Recent Fever Within 48 Hours Sepsis New/Unexplained Change in Mental Status Sepsis Action Taken by Nursing 04/16/24 12:15 04/16/24 12:27 04/16/24 12:28 Temperature Temperature Source Pulse Rate 115 H 108 H Pulse Rate [Apical] 112 H Pulse Rate from SpO2 Sensor 110 H Pulse Rhythm Respiratory Rate 32 H 18 22 Respiratory Effort / Characteristics Non-Labored Respiratory Depth Normal Blood Pressure 141/95 H 143/89 H Blood Pressure [Right Arm] 143/95 H Blood Pressure Mean 110 107 Blood Pressure Mean [Right Arm] 111 Blood Pressure Position Blood Pressure Position [Right Arm] Lying Pulse Oximetry 96 97 Oxygen Delivery Method Room Air Sepsis Recent Fever Within 48 Hours Sepsis New/Unexplained Change in Mental Status Sepsis Action Taken by Nursing 04/16/24 13:24 04/16/24 13:33 04/16/24 13:54 Temperature Temperature Source Pulse Rate 117 H 117 H 118 H Pulse Rate [Apical] Pulse Rate from SpO2 Sensor 119 H 118 H 130 H Pulse Rhythm Respiratory Rate 22 17 14 Respiratory Effort / Characteristics Respiratory Depth Blood Pressure 128/94 Blood Pressure [Right Arm] Blood Pressure Mean 105 Blood Pressure Mean [Right Arm] Blood Pressure Position Blood Pressure Position [Right Arm] Pulse Oximetry 94 95 97 Oxygen Delivery Method Sepsis Recent Fever Within 48 Hours Sepsis New/Unexplained Change in Mental Status Sepsis Action Taken by Nursing 04/16/24 13:58 04/16/24 14:00 04/16/24 14:00 Temperature Temperature Source Pulse Rate 119 H Pulse Rate [Apical] 116 H Pulse Rate from SpO2 Sensor Pulse Rhythm Respiratory Rate 18 Respiratory Effort / Characteristics Respiratory Depth Normal Blood Pressure 136/87 Blood Pressure [Right Arm] 136/87 Blood Pressure Mean 127 Blood Pressure Mean [Right Arm] 103 Blood Pressure Position Blood Pressure Position [Right Arm] Pulse Oximetry 95 Oxygen Delivery Method Room Air Sepsis Recent Fever Within 48 Hours Sepsis New/Unexplained Change in Mental Status Sepsis Action Taken by Nursing 04/16/24 14:03 Temperature Temperature Source Pulse Rate 123 H Pulse Rate [Apical] Pulse Rate from SpO2 Sensor Pulse Rhythm Respiratory Rate 23 Respiratory Effort / Characteristics Respiratory Depth Blood Pressure 136/87 Blood Pressure [Right Arm] Blood Pressure Mean 103 Blood Pressure Mean [Right Arm] Blood Pressure Position Blood Pressure Position [Right Arm] Pulse Oximetry Oxygen Delivery Method Sepsis Recent Fever Within 48 Hours Sepsis New/Unexplained Change in Mental Status Sepsis Action Taken by Nursing Laboratory Data 04/17/24 06:02 04/17/24 06:02 Lab Results 04/16/24 Range/Units 09:30 WBC 10.10 (4.8-10.8) K/ul RBC 4.30 (4.20-5.40) M/uL Hgb 12.0 (12.0-16.0) g/dl Hct 36.8 L (37.0-47.0) % MCV 85.6 (80.0-100.0) fL MCH 27.9 (25.0-34.0) pg MCHC 32.6 (32.0-36.0) g/dL RDW Std Deviation 47.6 H (36.4-46.3) fL RDW Coeff of Omar 15.2 H (11.5-14.5) % Plt Count 353 (130-400) K/uL MPV 10.0 (9.4-12.4) fL Immature Gran % (Auto) 2.1 % Neut % (Auto) 71.3 % Lymph % (Auto) 15.0 % Yell % (Auto) 10.1 % Eos % (Auto) 1.2 % Baso % (Auto) 0.3 % Neut # (Auto) 7.21 H (1.40-6.50) K/uL Lymph # (Auto) 1.51 (1.20-3.40) K/uL Yell # (Auto) 1.02 H (0.11-0.59) K/uL Eos # (Auto) 0.12 (0.00-0.50) K/uL Baso # (Auto) 0.03 (0.00-0.20) K/uL Immature Gran # (Auto) 0.21 H (0.01-0.20) K/uL PT 10.9 (9.0-12.0) Seconds INR 1.0 (0.9-1.1) APTT 24 (21-31) Seconds PTT Ratio 0.9 Sodium 138 (136-145) mmol/L Potassium 3.2 L (3.5-5.1) mmol/L Chloride 99 (98-107) mmol/L Carbon Dioxide 32 (21-32) mmol/L Anion Gap 7 (3-11) BUN 39 H (6-23) mg/dl Creatinine 1.10 (0.6-1.2) mg/dl Est Cr Clr Drug Dosing 37.2 ml/min eGFR 49.24 BUN/Creatinine Ratio 35.5 H (10-20) Glucose 104 H (70-99(Fasting)) mg/dl Calcium 9.5 (8.6-10.3) mg/dl Total Bilirubin 0.8 (0.2-1.0) mg/dl AST 34 (13-39) U/L ALT 62 H (7-52) U/L Alkaline Phosphatase 112 H (34-104) U/L Troponin I High Sens 19.8 H (0-14) pg/ml Total Protein 7.0 (6.0-8.3) gm/dl Albumin 4.4 (3.4-5.0) gm/dl Globulin 2.6 (2.5-4.0) gm/dl Albumin/Globulin Ratio 1.7 (0.9-2) Administered Medications Apixaban (Apixaban 5 Mg Tablet) 5 mg PO BID JORGE Stop: 05/16/24 20:59 Last Admin: 04/16/24 22:00 Dose: 5 mg Documented By: THADDEUS Levothyroxine Sodium (Levothyroxine Sodium 100 Mcg Tablet) 100 mcg PO DAILYBB JORGE Stop: 05/17/24 06:29 Last Admin: 04/17/24 05:04 Dose: 100 mcg Documented By: THADDEUS Lidocaine (Lidocaine 5% 1 Patch) 1 patch TD JORGE Stop: 05/16/24 20:59 Last Admin: 04/16/24 21:59 Dose: 1 patch Documented By: THADDEUS Morphine Sulfate (Morphine Sulfate 2 Mg/Ml Carp) 2 mg IV Q4H PRN PRN Reason: Breakthrough Pain Stop: 04/30/24 20:40 Last Admin: 04/17/24 04:57 Dose: 2 mg Documented By: Admin: 04/16/24 22:31 Dose: 2 mg Documented By: THADDEUS Simvastatin (Simvastatin 20 Mg Tab) 20 mg PO [facility] Stop: 05/16/24 20:59 Last Admin: 04/16/24 21:59 Dose: 20 mg Documented By: THADDEUS Discontinued Medications Acetaminophen (Acetaminophen 325 Mg Tab) Confirm Administered Dose 650 mg .ROUTE .STK-MED ONE Stop: 04/16/24 16:31 Last Admin: 04/16/24 16:35 Dose: 650 mg Documented By: KASANDRA Acetaminophen (Acetaminophen 325 Mg Tab) 650 mg PO NOW STA Stop: 04/16/24 17:09 Last Admin: 04/16/24 17:23 Dose: Not Given Documented By: KASANDRA Amiodarone HCl (Amiodarone 200 Mg Tab) 200 mg PO NOW ONE Stop: 04/16/24 14:58 Last Admin: 04/16/24 19:15 Dose: 200 mg Documented By: KASANDRA Amiodarone HCl (Amiodarone 200 Mg Tab) Confirm Administered Dose 200 mg .ROUTE .STK-MED ONE Stop: 04/16/24 18:48 Last Admin: 04/16/24 19:16 Dose: Not Given Documented By: KASANDRA Diltiazem HCl (Diltiazem Hcl 300 Mg Capcr) 300 mg PO NOW STA Stop: 04/16/24 10:10 Last Admin: 04/16/24 10:26 Dose: Not Given Documented By: LORETO Fentanyl Citrate (Fentanyl Citrate Pf 100 Mcg/2 Ml Vial) 50 mcg IV NOW STA Stop: 04/16/24 11:05 Last Admin: 04/16/24 11:11 Dose: 50 mcg Documented By: LORETO Fentanyl Citrate (Fentanyl Citrate Pf 100 Mcg/2 Ml Vial) 50 mcg IV NOW STA Stop: 04/16/24 12:22 Last Admin: 04/16/24 14:10 Dose: Not Given Documented By: LORETO Gabapentin (Gabapentin 300 Mg Cap) 300 mg PO NOW STA Stop: 04/16/24 10:54 Last Admin: 04/16/24 11:24 Dose: 300 mg Documented By: LORETO Sodium Chloride (Nss) 1,000 mls @ 125 mls/hr IV .Q8H JORGE Stop: 05/16/24 10:14 Last Infusion: 04/16/24 19:44 Dose: Infused Documented By: Admin: 04/16/24 10:16 Dose: 125 mls/hr Documented By: LORETO Acetaminophen (Ofirmev) 1,000 mg in 100 mls @ 400 mls/hr IV NOW STA Stop: 04/16/24 10:18 Last Infusion: 04/16/24 10:38 Dose: Infused Documented By: Admin: 04/16/24 10:16 Dose: 400 mls/hr Documented By: LORETO Ioversol (Optiray 320 100ml) 94 ml IV ONCE ONE Stop: 04/16/24 12:06 Last Admin: 04/16/24 12:08 Dose: 94 ml Documented By: PHILIP Lorazepam (Lorazepam 0.5 Mg Tab) 0.5 mg PO NOW STA Stop: 04/16/24 17:09 Last Admin: 04/16/24 17:46 Dose: 0.5 mg Documented By: KASANDRA Metoprolol Succinate (Metoprolol Succ 50mg Ext Rel Tab) 100 mg PO NOW STA Stop: 04/16/24 10:23 Last Admin: 04/16/24 11:24 Dose: 100 mg Documented By: LORETO Potassium Chloride (Potassium Chloride Crtab 20 Meq Tabcr) 40 meq PO NOW STA Stop: 04/16/24 14:18 Last Admin: 04/16/24 14:54 Dose: 40 meq Documented By: NARCISOG Imaging Data Radiologist's Impression: Chest X-Ray 04/16/24 09:41 SINGLE VIEW CHEST CLINICAL HISTORY: Atypical chest pain FINDINGS: An AP, portable, upright chest radiograph is compared to study dated 12/27/2023. Correlation is made with radiation treatment planning CT dated 05/15/2017. The heart is enlarged. The pulmonary vasculature is noncongested. Chronic thickening is similar to previous. There is mild bibasilar scarring/atelectasis. A 1.5 cm nodular opacity in the left upper lobe is unchanged from 12/27/2023 but was not seen on the [address] No airspace consolidation or pleural effusion is identified. No pneumothorax is seen. The bony thorax is grossly intact. IMPRESSION: 1. Cardiomegaly with no active disease in the chest. 2. A 1.5 cm nodular opacity is again seen in the left upper lung. This is unchanged from 12/27/2023 but was not seen on a [address] Correlation with a nonemergent/outpatient chest CT is again recommended for further assessment. ACT 112: Positive. There are findings on this exam that require communication between the performing entity and the patient following Patient Test Result Information Act ([place] Act 112) guidelines. Electronically signed by: Cristobal Dougherty M.D. 04/16/2024 10:[address] 04/16/24 10:06 CT lumbar spine w con CLINICAL HISTORY: s/p surgery, increased pain left hip/groin COMPARISON STUDY: Lumbar spine CT April 10, 2024. TECHNIQUE: Axial images of the lumbar spine were obtained following intravenous administration of 94 cc of Optiray 320 IV. Sagittal and coronal reformats were viewed. Automated exposure control was utilized for the study. A dose lowering technique was utilized adhering to the principles of ALARA. FINDINGS: There are postoperative findings consistent with L4-L5 discectomy with interbody spacer placement. Mild anterolisthesis is unchanged. Bilateral pedicle screws are intact. A healing nondisplaced fracture the left transverse process of L4 is again noted. There is a mild compression fracture of the inferior endplate of L3, likely subacute. There is 20% loss of vertebral body height with minimal retropulsion. There is no extension into the posterior elements. No additional lumbar spine fractures are present. Central canal and neural foramen are suboptimally assessed given CT technique. Sacroiliac joints are intact. Cystic bilateral pelvic lesions, right larger than left are similar to prior abdominal CT of February 05, 2021. 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 IMPRESSION: 1. Mild inferior endplate L3 compression fracture with 20% loss of vertebral body height and minimal retropulsion, likely subacute. 2. Status post L4-L5 discectomy and fusion. 3. Healing nondisplaced left transverse process fracture of L4. ACT 112: Negative or not required by law. Electronically signed by: Norm Tineo M.D. 04/16/2024 1:18 PM Discharge Plan Visit Data Chief Complaint: Hip Pain Stated Complaint: L HIP & GROIN PAIN ED Provider: Gina Spivey Discharge Problem: Hip pain, left Patient Disposition: Admitted As Inpatient Discharge Instructions Interventions: ED Discharge Assessment Last Done: 04/16/24 20:30
--- NOTE | 2024-04-16 10:29 | XRay Report ---
SINGLE VIEW CHEST CLINICAL HISTORY: Atypical chest pain FINDINGS: An AP, portable, upright chest radiograph is compared to study dated 12/27/2023. Correlation is made with radiation treatment planning CT dated 05/15/2017. The heart is enlarged. The pulmonary v asculature is noncongested. Chronic thickening is similar to previous. There is mild bibasilar scarri ng/atelectasis. A 1.5 cm nodular opacity in the left upper lobe is unchanged from 12/27/2023 but was n ot seen on the [address] No airspace consolidation or pleural effusion is marianne ntified. No pneumothorax is seen. The bony thorax is grossly intact. IMPRESSION: 1. Cardiomegaly with no active disease in the chest. 2. A 1.5 cm nodular opacity is again seen in the left upper lung. This is unchanged from 12/27/2023 bu t was not seen on a [address] Correlation with a nonemergent/outpatient c hest CT is again recommended for further assessment. ACT 112: Positive. There are findings on this exam that require communication between the performing entity and the patient following Patient Test Result Information Act ([place] Act 112) guidelines. Electronically signed by: Cristobal Dougherty M.D. 04/16/2024 10:27 AM
[2024-04-16 10:46] LABS: Albumin Globulin Ratio 1.7 (0.9-2); Albumin Level 4.4 gm/dl (3.4-5.0); BUN Creatinine Ratio 35.5 (10-20); Bilirubin,Total 0.8 mg/dl (0.2-1.0); Calcium 9.5 mg/dl (8.6-10.3); Creatinine Clr Calc Pharmacy 37.2 ml/min; Globulin 2.6 gm/dl (2.5-4.0); Potassium 3.2 mmol/L (3.5-5.1)
[2024-04-16 10:50] LABS: Partial Thromboplastin Ratio 0.9; Partial Thromboplastin Time 24 Seconds (21-31); Prothrombin Time 10.9 Seconds (9.0-12.0)
[2024-04-16 10:54] LABS: Troponin I High Sensitivity 19.8 pg/ml (0-14)
[2024-04-16] MEDS: fentaNYL citrate PF 100 MCG/2 ML VIAL IV STA ×2 (11:11→14:10)
[2024-04-16] MEDS: METOPROLOL SUCC 50MG EXT REL TAB PO STA (11:24)
[2024-04-16] MEDS: GABAPENTIN 300 MG CAP PO STA (11:24)
[2024-04-16] MEDS: OPTIRAY 320 100ml IV ONE (12:08)
--- NOTE | 2024-04-16 13:20 | CT Scan Report ---
CT lumbar spine w con CLINICAL HISTORY: s/p surgery, increased pain left hip/groin COMPARISON STUDY: Lumbar spine CT April 10, 2024. TECHNIQUE: Axial images of the lumbar spine were obtained following intravenous administration of 94 cc of Optiray 320 IV. Sagittal and coronal reformats were viewed. Automated exposure control was util ized for the study. A dose lowering technique was utilized adhering to the principles of ALARA. FINDINGS: There are postoperative findings consistent with L4-L5 discectomy with interbody spacer marco a cement. Mild anterolisthesis is unchanged. Bilateral pedicle screws are intact. A healing nondisplace d fracture the left transverse process of L4 is again noted. There is a mild compression fracture of the inferior endplate of L3, likely subacute. There is 20% loss of vertebral body height with minimal retropulsion. There is no extension into the posterior elements. No additional lumbar spine fracture s are present. Central canal and neural foramen are suboptimally assessed given CT technique. Sacroil iac joints are intact. Cystic bilateral pelvic lesions, right larger than left are similar to prior a bdominal CT of February 05, 2021. 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 IMPRESSION: 1. Mild inferior endplate L3 compression fracture with 20% loss of vertebral body height and minimal retropulsion, likely subacute. 2. Status post L4-L5 discectomy and fusion. 3. Healing nondisplaced left transverse process fracture of L4. ACT 112: Negative or not required by law. Electronically signed by: Norm Tineo M.D. 04/16/2024 1:18 PM
[2024-04-16] MEDS: POTASSIUM CHLORIDE CRTAB 20 MEQ TABCR PO STA (14:54)
--- NOTE | 2024-04-16 15:09 | History & Physical Report ---
Date of Service April 16, 2024 Assessment & Plan (1) Hip pain, left: Plan: Acute - S/p lumbar interbody fusion on 03/[address] Acuña - Ongoing issues since surgery, increased pain and difficulty ambulating - Admit to inpatient to med tele - due to variable afib rates - Heart healthy diet - Vital signs per unit protocol - Per Dr. Acuña follow up note from 04/15, ordered Palmer 5/325mg q4 prn moderate-severe pain and gabapentin 400mg daily x3 days then increased to BID x3 days then TID - Discussed case with Dr. Acuña, will order MRI lumbar spine as well as left hip w/o contrast - Consult PT/OT to eval and treat - CM consult for d/c planning, anticipate will need skilled rehab (2) Lumbar compression fracture: Plan: Subacute - Pain control as outlined above - PT/OT eval - Appears nonoperative, but appreciate input from Dr. Acuña - MRI of left hip and lumbar spine as noted (3) Paroxysmal atrial fibrillation with RVR: Plan: Chronic with variable rate control - Continue Amiodarone, Metoprolol Succ, and Eliquis - Med tele for HR monitoring - Has required short acting Cardizem during last admission and is followed by cardiology, Dr. Koch - Give a dose of Amiodarone 200mg po x1 now (4) Heart failure with improved ejection fraction (HFimpEF): Plan: Chronic - Med reconciliation is not completed, therefore uncertain what medications she is taking chronically for this issue - Low salt diet ordered, heart healthy - No evidence of acute exacerbation - Focus on rate control for afib as outlined above - Discontinued IVF that were ordered in the ED Plan VTE prophylaxis covered by resumption of apixaban. AM labs ordered. Potassium low at 3.2 on admission labs, replacement ordered with KCl 40meq pox1. Above plan of care has been d/w Dr. López who will also see and evaluate this patient. Further orders will be implemented as warranted by attending. History of Present Illness Chief Complaint: Back pain and left leg pain Primary Care Provider: Latoya Beth MD Kari is an 83 yo F with a pmhx of HFimEF, paroxysmal afib, DLD, history of breast CA, HTN, hypothyroidism, and spinal stenosis s/p lumbar interbody fusion on 03/09 who presents to the ER today c/o uncontrolled left flank pain that is radiating down her left leg. She denies altered sensation but her pain makes it difficult for her to ambulate. Pain is exacerbated by movement. She has failed Tramadol in the past due to being ineffective for pain relief and also significant constipation. She has been in the ER since being discharged from the hospital, most recently on 04/10 where she had a CT which confirmed hardware and cage to be be unchanged but new findings of healing left transverse process fracture of L4 and a new L3 compression fx that was not picked up by the radiologist. She was just seen in follow up by Dr. Acuña yesterday, images were reviewed, and it was advised that she start on norco for pain control + gabapentin. She presented back to the ER today due to persistent pain and difficulty with ambulation. She was medicated with Fentanyl x2 with some relief. She did not take any of her morning medications and is currently in afib variable rate 110-120s. She was given a dose of Cardizem and Metoprolol Succ. She did not receive her dose of Amiodarone that she takes daily. She has had issues with rate control in the recent past, but patient and family has declined to pursue cardioversion. She was also hydrated by ED with NSS @ 125 ml/hr. She denies chest pain or dyspnea. No loss of bowel/bladder control or saddle anesthesias. She has been referred for admission to hospital medicine team. Allergies Allergy/AdvReac Type Severity Reaction Status Date / Time NSAIDS (Non-Steroidal Allergy Severe RENAL Verified 04/14/24 10:18 Anti-Inflamma FAILURE adhesive Allergy Mild RASH Verified 04/14/24 10:18 latex Allergy Mild RASH Verified 04/14/24 10:18 procaine Allergy Mild prolonged Verified 04/14/24 10:18 effect amoxicillin AdvReac Intermediate Diarrhea Verified 04/14/24 10:18 orange AdvReac Intermediate "not Verified 04/14/24 10:18 supposed to take any citrus foods" orange juice AdvReac Intermediate "not Verified 04/14/24 10:18 supposed to take any citrus foods" pepper (genus Capsicum) AdvReac Intermediate "not Verified 04/14/24 10:18 supposed to take any due to an overactive bladder" sesame seed AdvReac Intermediate "not Verified 04/14/24 10:18 supposed to take any due to an overactive bladder" Home Medications Medication Instructions Recorded Confirmed Type [id number] 8 mg-folic 400 1 tab PO QDL 12/20/20 04/16/24 History mcg-K 50 mcg-lutein 300 mcg tablet (Centrum Silver Women) clindamycin HCl 300 mg capsule 600 mg PO UD PRN prior to dental 05/18/21 04/16/24 History procedure loratadine 10 mg tablet (Claritin) 10 mg PO QAM 04/29/23 04/16/24 History omega-3 fatty acids 1,000 mg 2,000 mg PO QDL 04/29/23 04/16/24 History capsule Saccharomyces boulardii 50 mg 50 mg PO BID 05/10/23 04/16/24 History capsule wiympcpiukw-zpf-vytusosdk-vitC 1 cap PO QDL 05/10/23 04/16/24 History capsule (Glucosamine Complex-MSM capsule) apixaban 5 mg tablet (Eliquis) 5 mg PO BID #180 tabs 05/20/23 04/16/24 Rx acetaminophen 650 mg 650 mg PO UD PRN Pain 12/04/23 04/16/24 History tablet,extended release (Tylenol Arthritis Pain) Cbd Cream 1 dose topical BID 12/25/23 04/16/24 History potassium chloride 20 mEq 0 meq PO DAILY PRN when taking 12/25/23 04/16/24 History tablet,extended release lasix simvastatin 20 mg tablet 20 mg PO HS 12/25/23 04/16/24 History vit C 250 mg-vit E 90 mg-zinc 40 1 tab PO BID 12/25/23 04/16/24 History mg-copper 1 se-dyazpw-ayhlhs capsule (PreserVision AREDS-2) docusate sodium 50 mg/5 mL oral 50 mg PO DAILY PRN Constipation 12/31/23 04/16/24 History liquid furosemide 40 mg tablet 40 mg PO DAILY PRN edema in feet 01/13/24 04/16/24 Rx #90 tabs amiodarone 200 mg tablet 200 mg PO DAILY #90 tabs 02/10/24 04/16/24 Rx diclofenac sodium 1 % topical gel 4 g topical QID #100 grams 04/09/24 04/16/24 Rx (Voltaren Arthritis Pain) losartan 50 mg-hydrochlorothiazide 1 tab PO QAM #90 tabs 04/09/24 04/16/24 Rx 12.5 mg tablet tramadol 50 mg tablet 50 mg PO BID PRN pain #30 tabs 04/10/24 04/16/24 Rx calcium 500 mg (as 1 tab PO QDL 04/16/24 04/16/24 History carbonate)-vitamin D3 15 mcg (600 unit) tablet (Os-Glenn 500 + D3) calcium glycerophosphate 130 mg PO UD PRN When eating 04/16/24 04/16/24 History problem food cyanocobalamin (vitamin B-12) 1,000 mcg PO QDL 04/16/24 04/16/24 History 1,000 mcg tablet (Vitamin B-12) famotidine 40 mg tablet 40 mg PO QAM 04/16/24 04/16/24 History fluticasone propionate 50 2 spray intranasal QAM 04/16/24 04/16/24 History mcg/actuation nasal spray,suspension gabapentin 300 mg capsule See Rx Instructions .Route .COMPLEX 04/16/24 04/16/24 History hydrocodone 5 mg-acetaminophen 325 0 tab PO BID PRN pain 04/16/24 04/16/24 History mg tablet levothyroxine 100 mcg tablet 100 mcg PO DAILY 04/16/24 04/16/24 History melatonin 5 mg tablet 5 mg PO HS PRN Sleep 04/16/24 04/16/24 History metoprolol succinate 100 mg 100 mg PO DAILY 04/16/24 04/16/24 History tablet,extended release 24 hr prednisone 20 mg tablet See Rx Instructions .Route .COMPLEX 04/16/24 04/16/24 History Past Med/Surg History Problem List (Updated 04/19/24 @ 00:08 by Background Roger) S/P lumbar fusion Strain of left psoas muscle Hip pain, left (Acute) Lumbar compression fracture Inferior endplate L3. Paroxysmal atrial fibrillation with RVR Back pain (Acute) Cognitive decline History of lumbar fusion Heart failure with improved ejection fraction (HFimpEF) SOB (shortness of breath) History of breast cancer Dx 2017 left breast; h/o lumpectomy + radiation-no limb restriction Heart failure with recovered ejection fraction (HFrecEF) Paroxysmal atrial fibrillation Lumbar stenosis with neurogenic claudication Low back pain radiating to left lower extremity Degenerative spondylolisthesis HFrEF (heart failure with reduced ejection fraction) Cardiomyopathy Heart failure with mid-range ejection fraction Left hip pain Rotator cuff arthropathy History of left breast cancer Rotator cuff arthropathy of both shoulders Lumbar spondylosis Anemia (Acute) Dyslipidemia Urinary frequency Bunion, left foot Degenerative joint disease of left midfoot Degenerative joint disease of right midfoot Trigger finger of right hand Osteopenia (Acute) Insomnia Hypothyroidism Hypertension Degenerative joint disease, multiple joints on both sides of body Anxiety Allergic rhinitis (Acute) Medical History History of transesophageal echocardiography (ULI) (04/2023) Closed fracture of right proximal humerus (01/15/23) Renal angiomyolipoma GERD (gastroesophageal reflux disease) Depression Malignant neoplasm of lower-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) Orthopnea Claustrophobia Difficult intravenous access Pulmonary hypertension NSTEMI (non-ST elevated myocardial infarction) Urinary frequency Osteopenia Lumbar stenosis Hypertension Dyslipidemia Lumbar back pain Degenerative spondylolisthesis Degenerative joint disease involving multiple joints Cardiomyopathy History of anxiety Angiomyolipoma of both kidneys Allergic rhinitis History of cardioversion Atrial fibrillation Lumbar radiculopathy, right Duodenal ulcer GI bleeding Osteoarthritis Overactive bladder Hypothyroidism LVH (left ventricular hypertrophy) Surgical History History of total right knee replacement (TKR) History of left knee replacement History of colonoscopy History of lumpectomy of left breast (02/22/17) History of cholecystectomy History of tonsillectomy and adenoidectomy History of breast biopsy Family History Unknown Aortic aneurysm Other No family history of adverse response to anesthesia Social History Smoking Status: Never smoker Second Hand Exposure: No; Do You Dip or Chew Tobacco: No; Hx Alcohol Use: No Hx Substance Use: No Preferred Language: Indonesian Communication Ability: Effective Visual Impairment: Partially Limited Educational Technician Required: No Beliefs That Will Affect Care: None marital status: / Current Living Situation Comment: [facility] current occupational status: retired How many Children do You have: 2 Other Information That Helps Us Care for You: No Feels Safe at Home: Yes Safety Concerns: Feels Safe At This Time Assistive Devices: Walker Review of Systems 2 Review of Systems: All systems reviewed and are unremarkable except as noted in HPI and below. Denies fever, chills, fatigue, headache, nasal congestion, sore throat, cough, chest pain, shortness of breath, palpitations, orthopnea, PND, abdominal pain, n/v/d, constipation, dysuria, hematuria, frequency, joint pain or swelling, easy bruising or bleeding, skin lesions or rashes. Physical Exam 2 Physical Exam: GENERAL: 83 yo well-nourished elderly F. NAD. EYES: EOMI. PERRLA. Anicteric. HENT: Moist mucous membranes. No scleral icterus. No cervical lymphadenopathy. LUNGS: Clear to auscultation bilaterally. No W/R/R. CARDIOVASCULAR: Irreg irreg ABDOMEN: Soft, non-tender and non-distended. BS normoactive x 4 quad. EXTREMITIES: No edema. Non-tender. Peripheral pulses +2/4. +straight leg raise on L NEUROLOGIC: A&O x3. No focal neurological deficits. CN II-XII grossly intact. PSYCHIATRIC: Cooperative. Appropriate mood and affect. SKIN: Warm, dry, intact. No rashes or lesions. Results & Data Results & Data Vital Signs (Past 12 Hours) Vital Signs Temp Pulse Pulse Resp BP BP Pulse Ox 04/16/24 14:00 116 H 18 136/87 95 04/16/24 13:58 119 H 04/16/24 12:28 112 H 22 143/95 H 97 04/16/24 12:08 117 H 24 96 04/16/24 11:26 148 H 22 148/109 H 97 04/16/24 09:57 133 H 04/16/24 09:32 22 04/16/24 09:32 36.6 C 138 H 20 148/116 H 90 04/16/24 09:25 140 H 22 97 O2 Del Method 04/16/24 14:00 Room Air 04/16/24 13:58 04/16/24 12:28 Room Air 04/16/24 12:08 Room Air 04/16/24 11:26 Room Air 04/16/24 09:57 04/16/24 09:32 04/16/24 09:32 Room Air 04/16/24 09:25 Room Air Laboratory Results 04/16/24 09:30 04/16/24 09:30 Diagnostic Findings Chest X-Ray 04/16/24 09:41 SINGLE VIEW CHEST CLINICAL HISTORY: Atypical chest pain FINDINGS: An AP, portable, upright chest radiograph is compared to study dated 12/27/2023. Correlation is made with radiation treatment planning CT dated 05/15/2017. The heart is enlarged. The pulmonary vasculature is noncongested. Chronic thickening is similar to previous. There is mild bibasilar scarring/atelectasis. A 1.5 cm nodular opacity in the left upper lobe is unchanged from 12/27/2023 but was not seen on the [address] No airspace consolidation or pleural effusion is identified. No pneumothorax is seen. The bony thorax is grossly intact. IMPRESSION: 1. Cardiomegaly with no active disease in the chest. 2. A 1.5 cm nodular opacity is again seen in the left upper lung. This is unchanged from 12/27/2023 but was not seen on a [address] Correlation with a nonemergent/outpatient chest CT is again recommended for further assessment. ACT 112: Positive. There are findings on this exam that require communication between the performing entity and the patient following Patient Test Result Information Act ([place] Act 112) guidelines. Electronically signed by: Cristobal Dougherty M.D. 04/16/2024 10:[address] 04/16/24 10:06 CT lumbar spine w con CLINICAL HISTORY: s/p surgery, increased pain left hip/groin COMPARISON STUDY: Lumbar spine CT April 10, 2024. TECHNIQUE: Axial images of the lumbar spine were obtained following intravenous administration of 94 cc of Optiray 320 IV. Sagittal and coronal reformats were viewed. Automated exposure control was utilized for the study. A dose lowering technique was utilized adhering to the principles of ALARA. FINDINGS: There are postoperative findings consistent with L4-L5 discectomy with interbody spacer placement. Mild anterolisthesis is unchanged. Bilateral pedicle screws are intact. A healing nondisplaced fracture the left transverse process of L4 is again noted. There is a mild compression fracture of the inferior endplate of L3, likely subacute. There is 20% loss of vertebral body height with minimal retropulsion. There is no extension into the posterior elements. No additional lumbar spine fractures are present. Central canal and neural foramen are suboptimally assessed given CT technique. Sacroiliac joints are intact. Cystic bilateral pelvic lesions, right larger than left are similar to prior abdominal CT of February 05, 2021. 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 IMPRESSION: 1. Mild inferior endplate L3 compression fracture with 20% loss of vertebral body height and minimal retropulsion, likely subacute. 2. Status post L4-L5 discectomy and fusion. 3. Healing nondisplaced left transverse process fracture of L4. ACT 112: Negative or not required by law. Electronically signed by: Norm Tineo M.D. 04/16/2024 1:18 PM Code Status & VTE Plan Code Status Full - confirmed by patient VTE Prophylaxis Plan VTE Prophylaxis will be ordered: Yes Supervising Physician Co-Signing Physician Notes I personally saw and examined the patient. I independently reviewed the labs, EKG, imaging, problem list, medication list, past medical history and family history. I verified all feldman points and agree with Joyce Rowe PA-C with the following exceptions and/or additions: 83 year old female presents to the ER with bilateral groin pain worse on the left s.p lumbar spinal fusion O/E HS irregular rhythm, regular rate, Chest CTAB, Abdo SNT, no paraspinal pain on palpation or on hip flex/rotation, groin pain on back movement A/P Bilateral groin, mostly left pain - suspected radiculopathy, MRI lumbar spine, increase gabapentin, consult ortho spine PG Care Time/CCT Total # of Minutes Spent Total Time Spent with Patient: Total time spent is greater than 50% in coordination of care (as documented) at patient's floor/unit and/or counseling patient: 75 minutes Coding Level of Care Code 67466 INT INP/OBS CARE 3/75MIN Diagnoses Hip pain, left M25.552 Lumbar compression fracture S32.000A Paroxysmal atrial fibrillation with RVR I48.0 Heart failure with improved ejection fraction (HFimpEF) I50.32
--- NOTE | 2024-04-16 16:33 | Electrocardiogram Report ---
Test Reason : Blood Pressure : */* mmHG Vent. Rate : 148 BPM Atrial Rate : * BPM P-R Int : * ms QRS Dur : 92 ms QT Int : 290 ms P-R-T Axes : * -5 180 degrees QTcB Int : 455 ms Atrial fibrillation with rapid ventricular response Marked ST abnormality, possible inferolateral subendocardial injury Abnormal ECG Confirmed by Jhonatan Torres ([id number]) on 04/16/2024 4:33:16 PM Referred By: REFERRED SELF Confirmed By: Jhonatan Torres
[2024-04-16] MEDS: ACETAMINOPHEN 325 MG TAB ONE (16:35)
[2024-04-16] MEDS: ACETAMINOPHEN 325 MG TAB PO STA (17:23)
[2024-04-16] MEDS: LORazepam 0.5 MG TAB PO STA (17:46)
[2024-04-16] MEDS: AMIODARONE 200 MG TAB PO ONE (19:15)
[2024-04-16] MEDS: AMIODARONE 200 MG TAB ONE (19:16)
--- NOTE | 2024-04-16 20:27 | Magnetic Resonance Report ---
Exam(s): MRI L SPINE Without Contrast EXAM: MR Lumbar Spine Without Intravenous Contrast CLINICAL HISTORY: Reason for exam: L leg radiculopathy. TECHNIQUE: Magnetic resonance images of the lumbar spine without intravenous contrast in multiple planes. COMPARISON: 07/26/2023 FINDINGS: Limitations: Exam limited secondary to patient motion artifact. Vertebrae: See below. Spinal cord: Unremarkable. Normal signal. Soft tissues: Unremarkable. Kidneys and ureters: Simple bilateral parapelvic renal cysts. No follow-up of these simple cysts is necessary. DISCS/SPINAL CANAL/NEURAL FORAMINA: L1-L2: Unremarkable. No significant disc disease. No stenosis. L2-L3: There is diffuse loss of disc signal and height throughout the lumbar spine. The cord terminates at a normal level. At L2-L3 there is a 0.7 cm left perineural cyst within the left neural foramen not significantly compress the exiting nerve root. And bowel 1 L2 there is mild posterior disc osteophyte complex superimposed upon facet and ligamentous hypertrophic changes resulting in mild canal narrowing. At L3-L4 extensive right greater than left facet and ligamentous hypertrophic changes results in severe right and moderate to severe left neuroforaminal narrowing. L3-L4: See above. L4-L5: At L4-L5: There is extensive facet ligamentous hypertrophic change resulting in moderate right and moderate severe left neural foraminal stenosis at Narrowing due to a degenerative disc bulge and bony hypertrophy. Postoperative changes L4-L5 interbody fusion. L5-S1: Right paracentral disc protrusion resulting in severe right neural foraminal stenosis at Narrowing due to a degenerative disc bulge and bony hypertrophy. IMPRESSION: 1. Multilevel degenerative changes of the lumbar spine as described above 2. Postoperative changes L4-L5 interbody fusion without evidence of hardware complication 3. Bilateral parapelvic renal cyst Electronically signed by: Jacky Enciso MD 04/16/24 20:26 PM
[2024-04-16] MEDS ORDERED: LIDOCAINE 5% 1 PATCH TD SCH (20:41)
[2024-04-16] MEDS ORDERED: ALUMINUM/MAGNESIUM SUSP 30 ML UDC PO PRN (20:41)
[2024-04-16] MEDS ORDERED: POTASSIUM CHLORIDE CRTAB 20 MEQ TABCR PO PRN (20:41)
[2024-04-16] MEDS ORDERED: ONDANSETRON INJ 2 MG/ML 2 ML VIAL IV PRN (20:41)
[2024-04-16] MEDS: SIMVASTATIN 20 MG TAB PO SCH (21:59)
[2024-04-16] MEDS: LIDOCAINE 5% 1 PATCH TD SCH (21:59)
[2024-04-16] MEDS: APIXABAN 5 MG TABLET PO SCH (22:00)
[2024-04-16] MEDS: MoRPHine SULFATE 2 MG/ML CARP IV PRN (22:31)
[2024-04-17] MEDS: LEVOTHYROXINE SODIUM 100 MCG TABLET PO SCH (05:04)
[2024-04-17 06:35] LABS: Basophils # (auto) 0.02 K/uL (0.00-0.20); Basophils % (auto) 0.3 %; Eosinophils # (auto) 0.47 K/uL (0.00-0.50); Eosinophils % (auto) 5.9 %; Hematocrit (blood only) 36.2 % (37.0-47.0); Hemoglobin 11.3 g/dl (12.0-16.0); Immature Granulocytes # (auto) 0.15 K/uL (0.01-0.20); Immature Granulocytes % (auto) 1.9 %; Lymphocytes # (auto) 1.19 K/uL (1.20-3.40); Lymphocytes % (auto) 14.9 %; Mean Corpuscular Hemoglobin 27.5 pg (25.0-34.0); Mean Corpuscular Hgb Conc 31.2 g/dL (32.0-36.0); Mean Corpuscular Volume 88.1 fL (80.0-100.0); Monocytes # (auto) 0.89 K/uL (0.11-0.59); Monocytes % (auto) 11.1 %; Neutrophils # (auto) 5.27 K/uL (1.40-6.50); Neutrophils % (auto) 65.9 %; Platelet Count 237 K/uL (130-400); RDW Coefficient of Variation 15.4 % (11.5-14.5); RDW Standard Deviation 49.2 fL (36.4-46.3); Red Blood Count 4.11 M/uL (4.20-5.40); White Blood Count 7.99 K/ul (4.8-10.8)
[2024-04-17 07:12] LABS: BUN Creatinine Ratio 31.7 (10-20); Calcium 8.7 mg/dl (8.6-10.3); Magnesium 2.6 mg/dl (1.7-2.4); Potassium 3.9 mmol/L (3.5-5.1)
--- NOTE | 2024-04-17 07:25 | Magnetic Resonance Report ---
MRI OF THE LEFT HIP WITHOUT CONTRAST CLINICAL HISTORY: Uncontrolled left hip pain. COMPARISON STUDY: Pelvis and left hip radiographs January 29, 2024. CT of the abdomen and pelvis Septem 2023. TECHNIQUE: Utilizing a 1.5 Keira magnet and dedicated coil, multiplanar, multi echo imaging of the le ft hip was performed without intravenous or intra-articular contrast. FINDINGS: 6.1 x 4.8 cm cystic right adnexal lesion is similar to earlier CT of February 05, 2021. A 2.6 c m cystic left adnexal lesion is also unchanged. There is prominence of the endometrium. There is no a scites within the pelvis. No pelvic lymphadenopathy is identified. There is no fluid collection to khoury ggest hematoma within the pelvis. No marrow edema or marrow replacement is present. Postoperative fin dings within the lumbar spine are better depicted on the lumbar spine MRI. There are no fractures wit hin the pelvis or hips. There is no evidence for avascular necrosis of the femoral heads. No hip join t effusions are present. There is trace symmetric fluid adjacent to the greater trochanters of the pr oximal femurs. There is mild cartilage thinning and osteophytosis of both hips. No well-defined left acetabular labral tear is identified. Tendinopathy of the insertion of the left gluteus medius and mi nimus is present. IMPRESSION: 1. No fractures within the left hip. No suspicious marrow replacement. No evidence for avascular necr osis of the left femoral head. 2. Mild left hip osteoarthritis with cartilage thinning and osteophytosis. 3. No change in bilateral cystic adnexal lesions within the pelvis since earlier CT of February 05, 2021. Although indeterminate, ovarian cysts are favored given stability. 4. Prominence of the endometrium. This could reflect fluid within the canal or endometrial thickening . Correlation with history of postmenopausal bleeding is recommended. If present, pelvic ultrasound i s suggested. ACT 112: Negative or not required by law. Electronically signed by: Norm Tineo M.D. 04/17/2024 7:23 AM
[2024-04-17] MEDS: LOSARTAN/HCTZ 50/12.5MG TAB PO SCH (09:02)
[2024-04-17] MEDS: LORATADINE 10 MG TAB PO SCH (09:02)
[2024-04-17] MEDS: METOPROLOL SUCC 50MG EXT REL TAB PO SCH (09:02)
[2024-04-17] MEDS: GABAPENTIN 300 MG CAP PO SCH (09:03)
[2024-04-17] MEDS: CEROVITE ADV FORMULA TAB PO SCH (09:03)
[2024-04-17] MEDS: AMIODARONE 200 MG TAB PO SCH (09:03)
[2024-04-17] MEDS: SACCHAROMYCES BOULARDII 250 MG CAP PO SCH (09:03)
[2024-04-17] MEDS: FAMOTIDINE 40 MG TABLET PO SCH (09:03)
[2024-04-17] MEDS: HYDROCODONE/ACETAMOPHEN 5/325MG TAB PO PRN (09:08)
[2024-04-17] MEDS: ACETAMINOPHEN 325 MG TAB PO PRN (13:34)
[2024-04-17] MEDS: METOPROLOL TARTRATE 50 MG TAB PO SCH (17:35)
--- NOTE | 2024-04-17 17:55 | Orthopedic Consultation ---
Date of Service April 17, 2024 Assessment & Plan (1) Strain of left psoas muscle: (2) S/P lumbar fusion: Plan 83 y/o female with left leg pain and some weaknes s/p lateral lumbar fusion Images reviewed and a long discussion had with the patient. Pain consistent with psoas pain common status post lateral fusion, possible residual radiculopathy. Demonstrated some exercises for her to do and encouraged mobilization. Recommend maximizing gabapentin PT, eval for possible rehab placement Weight bear as tolerated No immediate spine intervention planned Will discuss with Dr. Acuña who will continue her care post op History of Present Illness Reason for Consultation: Left Leg Pain Requesting Physician: Hospitalist Attending Physician: Silas Colvin Patient is an 83 year old female about 5-6 weeks out from Lumbar fusion surgery with Dr. Acuña who is out of town and asked me to check on her. She initially did well and was discharged to the [facility] where she did PT. She reports shortly after discharge she began experiencing left flankl, left groin pain into her left thigh. She has been ambulatory, neurologically inatct in both legs, ambulating with a walker. She does report left hip flexion weakness. She saw Dr. Acuña in the office 2 days ago, was given some pain medication and advised to follow up in 2 weeks. No right leg symptoms, started on Gabapentin here in the hospital. Normal bowel/bladder function, no issues with incisions. Allergies Allergy/AdvReac Type Severity Reaction Status Date / Time NSAIDS (Non-Steroidal Allergy Severe RENAL Verified 04/14/24 10:18 Anti-Inflamma FAILURE adhesive Allergy Mild RASH Verified 04/14/24 10:18 latex Allergy Mild RASH Verified 04/14/24 10:18 procaine Allergy Mild prolonged Verified 04/14/24 10:18 effect amoxicillin AdvReac Intermediate Diarrhea Verified 04/14/24 10:18 orange AdvReac Intermediate "not Verified 04/14/24 10:18 supposed to take any citrus foods" orange juice AdvReac Intermediate "not Verified 04/14/24 10:18 supposed to take any citrus foods" pepper (genus Capsicum) AdvReac Intermediate "not Verified 04/14/24 10:18 supposed to take any due to an overactive bladder" sesame seed AdvReac Intermediate "not Verified 04/14/24 10:18 supposed to take any due to an overactive bladder" Home Medications Medication Instructions Recorded Confirmed Type mbbmrets-rkyo-asld 8 mg-folic 400 1 tab PO QDL 12/20/20 04/16/24 History mcg-K 50 mcg-lutein 300 mcg tablet (Centrum Silver Women) clindamycin HCl 300 mg capsule 600 mg PO UD PRN prior to dental 05/18/21 04/16/24 History procedure loratadine 10 mg tablet (Claritin) 10 mg PO QAM 04/29/23 04/16/24 History omega-3 fatty acids 1,000 mg 2,000 mg PO QDL 04/29/23 04/16/24 History capsule Saccharomyces boulardii 50 mg 50 mg PO BID 05/10/23 04/16/24 History capsule ovrkhtbylhj-uuj-dcglfzrar-vitC 1 cap PO QDL 05/10/23 04/16/24 History capsule (Glucosamine Complex-MSM capsule) apixaban 5 mg tablet (Eliquis) 5 mg PO BID #180 tabs 05/20/23 04/16/24 Rx acetaminophen 650 mg 650 mg PO UD PRN Pain 12/04/23 04/16/24 History tablet,extended release (Tylenol Arthritis Pain) Cbd Cream 1 dose topical BID 12/25/23 04/16/24 History potassium chloride 20 mEq 0 meq PO DAILY PRN when taking 12/25/23 04/16/24 History tablet,extended release lasix simvastatin 20 mg tablet 20 mg PO HS 12/25/23 04/16/24 History vit C 250 mg-vit E 90 mg-zinc 40 1 tab PO BID 12/25/23 04/16/24 History mg-copper 1 ez-njnbkj-xmijod capsule (PreserVision AREDS-2) docusate sodium 50 mg/5 mL oral 50 mg PO DAILY PRN Constipation 12/31/23 04/16/24 History liquid furosemide 40 mg tablet 40 mg PO DAILY PRN edema in feet 01/13/24 04/16/24 Rx #90 tabs amiodarone 200 mg tablet 200 mg PO DAILY #90 tabs 02/10/24 04/16/24 Rx diclofenac sodium 1 % topical gel 4 g topical QID #100 grams 04/09/24 04/16/24 Rx (Voltaren Arthritis Pain) losartan 50 mg-hydrochlorothiazide 1 tab PO QAM #90 tabs 04/09/24 04/16/24 Rx 12.5 mg tablet tramadol 50 mg tablet 50 mg PO BID PRN pain #30 tabs 04/10/24 04/16/24 Rx calcium 500 mg (as 1 tab PO QDL 04/16/24 04/16/24 History carbonate)-vitamin D3 15 mcg (600 unit) tablet (Os-Glenn 500 + D3) calcium glycerophosphate 130 mg PO UD PRN When eating 04/16/24 04/16/24 History problem food cyanocobalamin (vitamin B-12) 1,000 mcg PO QDL 04/16/24 04/16/24 History 1,000 mcg tablet (Vitamin B-12) famotidine 40 mg tablet 40 mg PO QAM 04/16/24 04/16/24 History fluticasone propionate 50 2 spray intranasal QAM 04/16/24 04/16/24 History mcg/actuation nasal spray,suspension gabapentin 300 mg capsule See Rx Instructions .Route .COMPLEX 04/16/24 04/16/24 History hydrocodone 5 mg-acetaminophen 325 0 tab PO BID PRN pain 04/16/24 04/16/24 History mg tablet levothyroxine 100 mcg tablet 100 mcg PO DAILY 04/16/24 04/16/24 History melatonin 5 mg tablet 5 mg PO HS PRN Sleep 04/16/24 04/16/24 History metoprolol succinate 100 mg 100 mg PO DAILY 04/16/24 04/16/24 History tablet,extended release 24 hr prednisone 20 mg tablet See Rx Instructions .Route .COMPLEX 04/16/24 04/16/24 History Past Med/Surg History Problem List (Updated 04/17/24 @ 18:05 by Cristobal Carlton MD) S/P lumbar fusion Strain of left psoas muscle Hip pain, left (Acute) Lumbar compression fracture Inferior endplate L3. Paroxysmal atrial fibrillation with RVR Back pain (Acute) Cognitive decline History of lumbar fusion Heart failure with improved ejection fraction (HFimpEF) SOB (shortness of breath) History of breast cancer Dx 2017 left breast; h/o lumpectomy + radiation-no limb restriction Heart failure with recovered ejection fraction (HFrecEF) Paroxysmal atrial fibrillation Lumbar stenosis with neurogenic claudication Low back pain radiating to left lower extremity Degenerative spondylolisthesis HFrEF (heart failure with reduced ejection fraction) Cardiomyopathy Heart failure with mid-range ejection fraction Left hip pain Rotator cuff arthropathy History of left breast cancer Rotator cuff arthropathy of both shoulders Lumbar spondylosis Anemia (Acute) Dyslipidemia Urinary frequency Bunion, left foot Degenerative joint disease of left midfoot Degenerative joint disease of right midfoot Trigger finger of right hand Osteopenia (Acute) Insomnia Hypothyroidism Hypertension Degenerative joint disease, multiple joints on both sides of body Anxiety Allergic rhinitis (Acute) Medical History History of transesophageal echocardiography (ULI) (04/2023) Closed fracture of right proximal humerus (01/15/23) Renal angiomyolipoma GERD (gastroesophageal reflux disease) Depression Malignant neoplasm of lower-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) Orthopnea Claustrophobia Difficult intravenous access Pulmonary hypertension NSTEMI (non-ST elevated myocardial infarction) Urinary frequency Osteopenia Lumbar stenosis Hypertension Dyslipidemia Lumbar back pain Degenerative spondylolisthesis Degenerative joint disease involving multiple joints Cardiomyopathy History of anxiety Angiomyolipoma of both kidneys Allergic rhinitis History of cardioversion Atrial fibrillation Lumbar radiculopathy, right Duodenal ulcer GI bleeding Osteoarthritis Overactive bladder Hypothyroidism LVH (left ventricular hypertrophy) Surgical History History of total right knee replacement (TKR) History of left knee replacement History of colonoscopy History of lumpectomy of left breast (02/22/17) History of cholecystectomy History of tonsillectomy and adenoidectomy History of breast biopsy Family History Unknown Aortic aneurysm Other No family history of adverse response to anesthesia Social History Smoking Status: Never smoker Second Hand Exposure: No; Do You Dip or Chew Tobacco: No; Hx Alcohol Use: No Hx Substance Use: No Preferred Language: Bermudian Communication Ability: Effective Visual Impairment: Partially Limited 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 Physical Exam Surgical incisions well healed posterior and lateral 5/5 strength bilateral quad, tib ant, EHL, GS 5/5 right and 3/5 left hip flexor SILT L2-S1, reports paresthesias left L3 dermatome Results & Data Results & Data Laboratory Results WBC wnl Diagnostic Findings CT Lumbar spine reviewed and interpreted personally. Pedicle screws and interbody spacer in good position. Inferior L3 vertebral body compression deformity, no retropulsion. MRI L spine reviewed and personally interpreted. Moderate canal and lateral recess stenosis L3-4, L4-5. No severe neurologic compression. Moderate to severe left L3-4 foraminal stenosis, L2-3 perineural cyst, moderate left L4-5 foraminal stenosis. Severe right L5-S1 FORAMINAL stenosis, L5-S1 spondylolisthesis. MRI Left hip reviewed, no sign of occult fracture or severe osteoarthritis. PG Care Time/CCT Total # of Minutes Spent Total Time Spent with Patient: Total time spent is greater than 50% in coordination of care (as documented) at patient's floor/unit and/or counseling patient: Coding [place] [address] IN/OBS CONSULT LVL 3,45M Patient Type Established History Expanded Problem Focused Exam Expanded Problem Focused Medical Decision Making Low Complexity Diagnoses Strain of left psoas muscle S76.012A S/P lumbar fusion Z98.1 Time Spent (min) 45
[2024-04-17] MEDS: MELATONIN 3 MG TAB PO PRN (20:58)
[2024-04-17 23:20] LABS: Appearance Urine Clear (Clear); Bacteria Urine Automated None Seen (None Seen); Bilirubin Urine Negative (Negative); Blood Urine Negative (Negative); Cast Urine Automated 0-2 /lpf (0-2); Color Urine Yellow; Glucose Urine UA Negative (Negative); Ketones Urine Negative (Negative); Leukocyte Esterase Urine 2+ (Negative); Nitrite Urine Negative (Negative); Protein Urine Negative (Negative); RBC Urine Automated 0-2 /hpf (0-2); Specific Gravity Urine 1.023 (1.000-1.030); Urobilinogen Urine Negative (Negative); pH Urine 5.5 (4.5-7.5)
--- NOTE | 2024-04-18 08:18 | Hospitalist Progress Note ---
Date of Service April 17, 2024 Assessment & Plan (1) Hip pain, left: Plan: Acute - S/p lumbar interbody fusion on 03/[address] Acuña - Ongoing issues since surgery, increased pain and difficulty ambulating - Admit to inpatient to med tele - due to variable afib rates - Heart healthy diet - Vital signs per unit protocol - Per Dr. Acuña follow up note from 04/15, ordered [place] 5/325mg q4 prn moderate-severe pain and gabapentin 400mg daily x3 days then increased to BID x3 days then TID - Discussed case with Dr. Acuña, will order MRI lumbar spine as well as left hip w/o contrast - Consult PT/OT to eval and treat - CM consult for d/c planning, anticipate will need skilled rehab Patient comfortable on 04/17 MRI completed 1. Multilevel degenerative changes of the lumbar spine as described above 2. Postoperative changes L4-L5 interbody fusion without evidence of hardware complication 3. Bilateral parapelvic renal cyst awaiting placement. (2) Lumbar compression fracture: Plan: Subacute - Pain control as outlined above - PT/OT eval - Appears nonoperative, but appreciate input from Dr. Acuña - MRI of left hip and lumbar spine as noted (3) Paroxysmal atrial fibrillation with RVR: Plan: Chronic with variable rate control - Continue Amiodarone, Metoprolol Succ, and Eliquis - Med tele for HR monitoring - Has required short acting Cardizem during last admission and is followed by cardiology, Dr. Koch - Give a dose of Amiodarone 200mg po x1 now (4) Heart failure with improved ejection fraction (HFimpEF): Plan: Chronic - Med reconciliation is not completed, therefore uncertain what medications she is taking chronically for this issue - Low salt diet ordered, heart healthy - No evidence of acute exacerbation - Focus on rate control for afib as outlined above - Discontinued IVF that were ordered in the ED Plan VTE prophylaxis covered by resumption of apixaban. AM labs ordered. Potassium low at 3.2 on admission labs, replacement ordered with KCl 40meq pox1. Above plan of care has been d/w Dr. López who will also see and evaluate this patient. Further orders will be implemented as warranted by attending. Admission and Anticipated Discharge Date Admission Date: April 16, 2024 Subjective Patient reports no new symptms. Physical Exam Physical Exam: GENERAL: 83 yo well-nourished elderly F. NAD. EYES: EOMI. PERRLA. Anicteric. HENT: Moist mucous membranes. No scleral icterus. No cervical lymphadenopathy. LUNGS: Clear to auscultation bilaterally. No W/R/R. CARDIOVASCULAR: Irreg irreg ABDOMEN: Soft, non-tender and non-distended. BS normoactive x 4 quad. EXTREMITIES: No edema. Non-tender. Peripheral pulses +2/4. +straight leg raise on L NEUROLOGIC: A&O x3. No focal neurological deficits. CN II-XII grossly intact. Results & Data Results & Data Vital Signs (Past 12 Hours) Vital Signs Temp Pulse Pulse Resp BP Pulse Ox O2 Del Method 04/18/24 07:41 36.0 C L 116 H 16 128/85 97 Room Air 04/18/24 02:45 36.7 C 106 H 18 123/83 100 Room Air 04/17/24 22:44 36.9 C 106 H 18 132/80 96 Room Air 04/17/24 22:05 114 H PG Care Time/CCT Total # of Minutes Spent Total Time Spent with Patient: Total time spent is greater than 50% in coordination of care (as documented) at patient's floor/unit and/or counseling patient: Coding Level of Care Code 38388 SUB INP/OBS CARE 2/35MIN Diagnoses Hip pain, left M25.552 Lumbar compression fracture S32.000A Paroxysmal atrial fibrillation with RVR I48.0 Heart failure with improved ejection fraction (HFimpEF) I50.32
--- NOTE | 2024-04-19 08:14 | Hospitalist Progress Note ---
Date of Service April 18, 2024 Assessment & Plan (1) Hip pain, left: Plan: Acute - S/p lumbar interbody fusion on 03/[address] Acuña - Ongoing issues since surgery, increased pain and difficulty ambulating - Admit to inpatient to med tele - due to variable afib rates - Heart healthy diet - Vital signs per unit protocol - Per Dr. Acuña follow up note from 04/15, ordered [place] 5/325mg q4 prn moderate-severe pain and gabapentin 400mg daily x3 days then increased to BID x3 days then TID - Discussed case with Dr. Acuña, will order MRI lumbar spine as well as left hip w/o contrast - Consult PT/OT to eval and treat - CM consult for d/c planning, anticipate will need skilled rehab (2) Lumbar compression fracture: Plan: Subacute - Pain control as outlined above - PT/OT eval - Appears nonoperative, but appreciate input from Dr. Acuña - MRI of left hip and lumbar spine as noted (3) Paroxysmal atrial fibrillation with RVR: Plan: Chronic with variable rate control - Continue Amiodarone, Metoprolol Succ, and Eliquis - Med tele for HR monitoring - Has required short acting Cardizem during last admission and is followed by cardiology, Dr. Koch - Give a dose of Amiodarone 200mg po x1 now -HR has been elevated. added metoprolol 50 mg PO Q6h (4) Heart failure with improved ejection fraction (HFimpEF): Plan: Chronic - Med reconciliation is not completed, therefore uncertain what medications she is taking chronically for this issue - Low salt diet ordered, heart healthy - No evidence of acute exacerbation - Focus on rate control for afib as outlined above - Discontinued IVF that were ordered in the ED Plan VTE prophylaxis covered by resumption of apixaban. Admission and Anticipated Discharge Date Admission Date: April 16, 2024 Subjective Patient reports no new symptoms. Review of Systems Review of Systems: All systems reviewed & are unremarkable except as noted in HPI & below Physical Exam Physical Exam: GENERAL: 83 yo well-nourished elderly F. NAD. EYES: EOMI. PERRLA. Anicteric. HENT: Moist mucous membranes. No scleral icterus. No cervical lymphadenopathy. LUNGS: Clear to auscultation bilaterally. No W/R/R. CARDIOVASCULAR: Irreg irreg ABDOMEN: Soft, non-tender and non-distended. BS normoactive x 4 quad. EXTREMITIES: No edema. Non-tender. Peripheral pulses +2/4. +straight leg raise on L NEUROLOGIC: A&O x3. No focal neurological deficits. CN II-XII grossly intact. Results & Data Results & Data Vital Signs (Past 12 Hours) Vital Signs Temp Pulse Pulse Resp BP Pulse Ox O2 Del Method 04/19/24 07:36 36.5 C 105 H 20 112/78 98 Room Air 04/19/24 02:47 36.4 C L 119 H 18 112/73 98 Room Air 04/18/24 22:31 36.7 C 116 H 18 104/70 97 Room Air 04/18/24 21:55 112 H PG Care Time/CCT Total # of Minutes Spent Total Time Spent with Patient: Total time spent is greater than 50% in coordination of care (as documented) at patient's floor/unit and/or counseling patient: Coding Level of Care Code 51554 SUB INP/OBS CARE 2/35MIN Diagnoses Hip pain, left M25.552 Lumbar compression fracture S32.000A Paroxysmal atrial fibrillation with RVR I48.0 Heart failure with improved ejection fraction (HFimpEF) I50.32
[2024-04-19 11:09] LABS: Hematocrit (blood only) 38.9 % (37.0-47.0); Hemoglobin 11.8 g/dl (12.0-16.0); Mean Corpuscular Hemoglobin 27.1 pg (25.0-34.0); Mean Corpuscular Hgb Conc 30.3 g/dL (32.0-36.0); Mean Corpuscular Volume 89.2 fL (80.0-100.0); Mean Platelet Volume 10.1 fL (9.4-12.4); Platelet Count 305 K/uL (130-400); RDW Coefficient of Variation 15.5 % (11.5-14.5); RDW Standard Deviation 50.5 fL (36.4-46.3); Red Blood Count 4.36 M/uL (4.20-5.40)
[2024-04-19 11:24] LABS: BUN Creatinine Ratio 21.1 (10-20); Calcium 8.9 mg/dl (8.6-10.3); Creatinine Clr Calc Pharmacy 33.3 ml/min
[2024-04-19] MEDS: dilTIAZem HCL 30 MG TAB PO SCH (14:06)
--- NOTE | 2024-04-19 22:11 | Hospitalist Progress Note ---
Date of Service April 19, 2024 Assessment & Plan (1) Hip pain, left: Plan: Acute - S/p lumbar interbody fusion on 03/[address] Acuña - Ongoing issues since surgery, increased pain and difficulty ambulating - Admit to inpatient to med tele - due to variable afib rates - Heart healthy diet - Vital signs per unit protocol - Per Dr. Acuña follow up note from 04/15, ordered [place] 5/325mg q4 prn moderate-severe pain and gabapentin 400mg daily x3 days then increased to BID x3 days then TID - Discussed case with Dr. Acuña, will order MRI lumbar spine as well as left hip w/o contrast No hardware complication on imaging. - Consult PT/OT to eval and treat - CM consult for d/c planning, anticipate will need skilled rehab (2) Lumbar compression fracture: Plan: Subacute - Pain control as outlined above - PT/OT eval - Appears nonoperative, but appreciate input from Dr. Acuña - MRI of left hip and lumbar spine as noted (3) Paroxysmal atrial fibrillation with RVR: Plan: Chronic with variable rate control - Continue Amiodarone, Metoprolol Succ, and Eliquis - Med tele for HR monitoring - Has required short acting Cardizem during last admission and is followed by cardiology, Dr. Koch - Give a dose of Amiodarone 200mg po x1 now (4) Heart failure with improved ejection fraction (HFimpEF): Plan: Chronic - Med reconciliation is not completed, therefore uncertain what medications she is taking chronically for this issue - Low salt diet ordered, heart healthy - No evidence of acute exacerbation - Focus on rate control for afib as outlined above - Discontinued IVF that were ordered in the ED Plan VTE prophylaxis covered by resumption of apixaban. Admission and Anticipated Discharge Date Admission Date: April 16, 2024 Subjective 83 yo female reports no new symptoms. Review of Systems Review of Systems: All systems reviewed & are unremarkable except as noted in HPI & below Physical Exam Physical Exam: GENERAL: 83 yo well-nourished elderly F. NAD. EYES: EOMI. PERRLA. Anicteric. HENT: Moist mucous membranes. No scleral icterus. No cervical lymphadenopathy. LUNGS: Clear to auscultation bilaterally. No W/R/R. CARDIOVASCULAR: Irreg irreg ABDOMEN: Soft, non-tender and non-distended. BS normoactive x 4 quad. EXTREMITIES: No edema. Non-tender. Peripheral pulses +2/4. +straight leg raise on L NEUROLOGIC: A&O x3. No focal neurological deficits. CN II-XII grossly intact. Results & Data Results & Data Vital Signs (Past 12 Hours) Vital Signs Temp Pulse Resp BP Pulse Ox O2 Del Method 04/19/24 20:17 36.7 C 93 H 20 108/80 99 Room Air 04/19/24 17:52 110/60 04/19/24 15:57 36.8 C 106 H 20 91/62 L 99 Room Air 04/19/24 12:24 36.6 C 112 H 18 104/69 98 Room Air PG Care Time/CCT Total # of Minutes Spent Total Time Spent with Patient: Total time spent is greater than 50% in coordination of care (as documented) at patient's floor/unit and/or counseling patient: Coding Level of Care Code 63563 SUB INP/OBS CARE 2/35MIN Diagnoses Hip pain, left M25.552 Lumbar compression fracture S32.000A Paroxysmal atrial fibrillation with RVR I48.0 Heart failure with improved ejection fraction (HFimpEF) I50.32
[2024-04-20 06:32] LABS: Hematocrit (blood only) 36.7 % (37.0-47.0); Hemoglobin 11.7 g/dl (12.0-16.0); Mean Corpuscular Hemoglobin 27.3 pg (25.0-34.0); Mean Corpuscular Hgb Conc 31.9 g/dL (32.0-36.0); Mean Corpuscular Volume 85.5 fL (80.0-100.0); Mean Platelet Volume 10.3 fL (9.4-12.4); Platelet Count 238 K/uL (130-400); RDW Coefficient of Variation 15.7 % (11.5-14.5); RDW Standard Deviation 48.7 fL (36.4-46.3); Red Blood Count 4.29 M/uL (4.20-5.40); White Blood Count 7.64 K/ul (4.8-10.8)
[2024-04-20 06:35] LABS: Calcium 9.2 mg/dl (8.6-10.3); Potassium 4.1 mmol/L (3.5-5.1)
[2024-04-20] MEDS: MAGNESIUM HYDROXIDE SUSP 30 ML UDC PO PRN (06:38)
[2024-04-20 06:40] LABS: BUN Creatinine Ratio 19.2 (10-20); Creatinine Clr Calc Pharmacy 31.3 ml/min
--- NOTE | 2024-04-20 15:12 | Cardiology Consultation ---
Date of Consultation April 20, 2024 Assessment & Plan (1) Persistent atrial fibrillation: 2. Heart failure with recovered ejection fraction 3. Lumbar spinal stenosis post lumbar fusion 02/2024 with residual left groin pain 4. Anemia 5. DOMENICO 6. Hypertension Patient remains in persistent, asymptomatic atrial fibrillation. Is now post cardioversion x 3 but has been unable to maintain sinus rhythm despite amiodarone. Heart rate trend consistently in the the 100s to 120s over the last 2 days. Persistent lower extremity edema post surgery but no signs of heart failure. Overall feel that current rate control around the 110s is adequate. Feel additional attempt at cardioversion unnecessary and would be of limited utility. Can increase metoprolol to 150 mg twice daily If heart rates consistently higher than 120s would add digoxin Okay to stop amiodarone With edema and prior heart failure prefer rate control without additional diltiazem. Continue current Eliquis Patient follows with Dr. Koch long-term. He will resume her care tomorrow. History of Present Illness Attending Physician: Silas Colvin History of Present Illness Mrs. Nelson is a very pleasant 83-year-old female with a history significant for paroxysmal atrial fibrillation (diagnosed April 2023) s/p DCCV x 3 seen today again in the setting of persistent AF with RVR. Her primary learning strategist is Dr. Koch. She has been dealing with issues stemming from her lumbar stenosis and radiculopathy for months. She underwent lumbar fusion with Dr. Acuña 03/09/2024. Hospitalized currently due to limiting left groin pain. Cardiac history notable for heart failure with mildly reduced EF while in A-fib with RVR 04/2023 for which underwent cardioversion. In sinus rhythm had re covery of LV function 10/2023. Remained in sinus rhythm until 12/2023 when presented acutely with shortness of breath/chest discomfort. Rehospitalized and cardioverted 12/27/2023, maintained on amiodarone. Following back surgery he had recurrent A-fib with RVR 02/2024 (amiodarone/metoprolol had been on hold preop). Extended hospitalization post back surgery and eventually underwent cardioversion prior to discharge on 03/18/2024. Recurrent AF on ECG 04/09/2024 despite amiodarone. Has been asymptomatic with current AF. Seen most recently by cardiology on 04/14. Amiodarone increased from 200 to 400 mg daily and continued on current Lopressor of 100 in the a.m., 50 in the p.m. During current hospitalization patient denies any recurrent palpitations, chest pain, presyncope or shortness of breath. With ambulation denies any limiting chest symptoms. Reports significant lower extremity edema since back surgery and has intermittently taken PO lasix. Telemetry reviewed today shows consistent heart rates in the 100s to 120s for the last 2 days. Past medical history: Also includes breast cancer s/p XRT, anemia, dyslipidema, hypothyroidism and hypertension. Family history: Noncontributory. Social history: She denies tobacco, alcohol, drug abuse. She is a . She has 2 daughters who live in [place]. She spends half the year in [place], leaving [place] in May. She otherwise resides at the [facility]. Her daughter, Yulisa, was seated at the bedside. Allergies Allergy/AdvReac Type Severity Reaction Status Date / Time NSAIDS (Non-Steroidal Allergy Severe RENAL Verified 04/14/24 10:18 Anti-Inflamma FAILURE adhesive Allergy Mild RASH Verified 04/14/24 10:18 latex Allergy Mild RASH Verified 04/14/24 10:18 procaine Allergy Mild prolonged Verified 04/14/24 10:18 effect amoxicillin AdvReac Intermediate Diarrhea Verified 04/14/24 10:18 orange AdvReac Intermediate "not Verified 04/14/24 10:18 supposed to take any citrus foods" orange juice AdvReac Intermediate "not Verified 04/14/24 10:18 supposed to take any citrus foods" pepper (genus Capsicum) AdvReac Intermediate "not Verified 04/14/24 10:18 supposed to take any due to an overactive bladder" sesame seed AdvReac Intermediate "not Verified 04/14/24 10:18 supposed to take any due to an overactive bladder" Home Medications Medication Instructions Recorded Confirmed Type ezmrebqs-kxde-phyn 8 mg-folic 400 1 tab PO QDL 12/20/20 04/16/24 History mcg-K 50 mcg-lutein 300 mcg tablet (Centrum Silver Women) clindamycin HCl 300 mg capsule 600 mg PO UD PRN prior to dental 05/18/21 04/16/24 History procedure loratadine 10 mg tablet (Claritin) 10 mg PO QAM 04/29/23 04/16/24 History omega-3 fatty acids 1,000 mg 2,000 mg PO QDL 04/29/23 04/16/24 History capsule Saccharomyces boulardii 50 mg 50 mg PO BID 05/10/23 04/16/24 History capsule qihkayehaty-rku-jhmvuswrt-vitC 1 cap PO QDL 05/10/23 04/16/24 History capsule (Glucosamine Complex-MSM capsule) apixaban 5 mg tablet (Eliquis) 5 mg PO BID #180 tabs 05/20/23 04/16/24 Rx acetaminophen 650 mg 650 mg PO UD PRN Pain 12/04/23 04/16/24 History tablet,extended release (Tylenol Arthritis Pain) Cbd Cream 1 dose topical BID 12/25/23 04/16/24 History potassium chloride 20 mEq 0 meq PO DAILY PRN when taking 12/25/23 04/16/24 History tablet,extended release lasix simvastatin 20 mg tablet 20 mg PO HS 12/25/23 04/16/24 History vit C 250 mg-vit E 90 mg-zinc 40 1 tab PO BID 12/25/23 04/16/24 History mg-copper 1 wp-yxkbyw-ihcehv capsule (PreserVision AREDS-2) docusate sodium 50 mg/5 mL oral 50 mg PO DAILY PRN Constipation 12/31/23 04/16/24 History liquid furosemide 40 mg tablet 40 mg PO DAILY PRN edema in feet 01/13/24 04/16/24 Rx #90 tabs amiodarone 200 mg tablet 200 mg PO DAILY #90 tabs 02/10/24 04/16/24 Rx diclofenac sodium 1 % topical gel 4 g topical QID #100 grams 04/09/24 04/16/24 Rx (Voltaren Arthritis Pain) losartan 50 mg-hydrochlorothiazide 1 tab PO QAM #90 tabs 04/09/24 04/16/24 Rx 12.5 mg tablet tramadol 50 mg tablet 50 mg PO BID PRN pain #30 tabs 04/10/24 04/16/24 Rx calcium 500 mg (as 1 tab PO QDL 04/16/24 04/16/24 History carbonate)-vitamin D3 15 mcg (600 unit) tablet (Os-Glenn 500 + D3) calcium glycerophosphate 130 mg PO UD PRN When eating 04/16/24 04/16/24 History problem food cyanocobalamin (vitamin B-12) 1,000 mcg PO QDL 04/16/24 04/16/24 History 1,000 mcg tablet (Vitamin B-12) famotidine 40 mg tablet 40 mg PO QAM 04/16/24 04/16/24 History fluticasone propionate 50 2 spray intranasal QAM 04/16/24 04/16/24 History mcg/actuation nasal spray,suspension gabapentin 300 mg capsule See Rx Instructions .Route .COMPLEX 04/16/24 04/16/24 History hydrocodone 5 mg-acetaminophen 325 0 tab PO BID PRN pain 04/16/24 04/16/24 History mg tablet levothyroxine 100 mcg tablet 100 mcg PO DAILY 04/16/24 04/16/24 History melatonin 5 mg tablet 5 mg PO HS PRN Sleep 04/16/24 04/16/24 History metoprolol succinate 100 mg 100 mg PO DAILY 04/16/24 04/16/24 History tablet,extended release 24 hr prednisone 20 mg tablet See Rx Instructions .Route .COMPLEX 04/16/24 04/16/24 History Patient History Medical History History of transesophageal echocardiography (ULI) (04/2023) Closed fracture of right proximal humerus (01/15/23) Renal angiomyolipoma GERD (gastroesophageal reflux disease) Depression Malignant neoplasm of lower-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) Orthopnea Claustrophobia Difficult intravenous access Pulmonary hypertension NSTEMI (non-ST elevated myocardial infarction) Urinary frequency Osteopenia Lumbar stenosis Hypertension Dyslipidemia Lumbar back pain Degenerative spondylolisthesis Degenerative joint disease involving multiple joints Cardiomyopathy History of anxiety Angiomyolipoma of both kidneys Allergic rhinitis History of cardioversion Atrial fibrillation Lumbar radiculopathy, right Duodenal ulcer GI bleeding Osteoarthritis Overactive bladder Hypothyroidism LVH (left ventricular hypertrophy) Surgical History History of total right knee replacement (TKR) History of left knee replacement History of colonoscopy History of lumpectomy of left breast (02/22/17) History of cholecystectomy History of tonsillectomy and adenoidectomy History of breast biopsy Family History Unknown Aortic aneurysm Other No family history of adverse response to anesthesia Social History Smoking Status: Never smoker Second Hand Exposure: No; Do You Dip or Chew Tobacco: No; Hx Alcohol Use: No Hx Substance Use: No Preferred Language: Malian Communication Ability: Effective Visual Impairment: Partially Limited Size Roller Operator Required: No Beliefs That Will Affect Care: None marital status: / Current Living Situation Comment: [facility] current occupational status: retired How many Children do You have: 2 Other Information That Helps Us Care for You: No Feels Safe at Home: Yes Safety Concerns: Feels Safe At This Time Assistive Devices: Walker Review of Systems Review of Systems: All systems reviewed & are unremarkable except as noted in HPI & below Physical Exam Physical Exam: General: Comfortable HEENT: Sclerae anicteric Lungs: Clear to auscultation bilaterally Cardiac: Tachycardic, irregularly irregular, no murmurs Vascular: 2+ radial Abdomen: Soft, nontender Extremities: Well perfused, 2+ edema extending above the knees. Bilateral above and below the knee telangiectasias/reticular veins Psych: Alert orient x3, normal affect and mood Results & Data Vital Signs (Past 12 Hours) Vital Signs Temp Pulse Resp BP Pulse Ox O2 Del Method 04/20/24 11:36 97.7 F 102 H 18 116/84 96 Room Air 04/20/24 07:57 97.6 F 102 H 18 113/75 96 Room Air 04/20/24 03:31 97.5 F L 107 H 20 112/71 99 Room Air PG Care Time/CCT Total # of Minutes Spent Total Time Spent with Patient: Total time spent is greater than 50% in coordination of care (as documented) at patient's floor/unit and/or counseling patient: Coding Level of Care Code 50765 INT INP/OBS CARE 2/55MIN Diagnoses Persistent atrial fibrillation I48.19
[2024-04-20] MEDS: METOPROLOL TARTRATE 50 MG TAB PO SCH (20:32)
--- NOTE | 2024-04-21 06:37 | Hospitalist Progress Note ---
Date of Service April 20, 2024 Assessment & Plan (1) Hip pain, left: Plan: Acute - S/p lumbar interbody fusion on 03/[address] Acuña - Ongoing issues since surgery, increased pain and difficulty ambulating - Admit to inpatient to med tele - due to variable afib rates - Heart healthy diet - Vital signs per unit protocol - Per Dr. Acuña follow up note from 04/15, ordered [place] 5/325mg q4 prn moderate-severe pain and gabapentin 400mg daily x3 days then increased to BID x3 days then TID - Discussed case with Dr. Acuña, will order MRI lumbar spine as well as left hip w/o contrast No hardware complication on imaging. - Consult PT/OT to eval and treat - CM consult for d/c planning, anticipate will need skilled rehab (2) Lumbar compression fracture: Plan: Subacute - Pain control as outlined above - PT/OT eval - Appears nonoperative, but appreciate input from Dr. Acuña - MRI of left hip and lumbar spine as noted (3) Paroxysmal atrial fibrillation with RVR: Plan: Chronic with variable rate control - Continue Amiodarone, Metoprolol Succ, and Eliquis - Med tele for HR monitoring - Will stop cardizem and amiodarone. -Increased metoprolol to 150 mg PO BID. (4) Heart failure with improved ejection fraction (HFimpEF): Plan: Chronic - Med reconciliation is not completed, therefore uncertain what medications she is taking chronically for this issue - Low salt diet ordered, heart healthy - No evidence of acute exacerbation - Focus on rate control for afib as outlined above - Discontinued IVF that were ordered in the ED Acute delirium Likely hospital acquired. WIlll monitor. Plan VTE prophylaxis covered by resumption of apixaban. If HR is ok may consider discharge to rehab. Admission and Anticipated Discharge Date Admission Date: April 16, 2024 Subjective Patient is more confused today. Poor historian. Review of Systems Review of Systems: All systems reviewed & are unremarkable except as noted in HPI & below Physical Exam Physical Exam: GENERAL: 83 yo well-nourished elderly F. NAD. EYES: EOMI. PERRLA. Anicteric. HENT: Moist mucous membranes. No scleral icterus. No cervical lymphadenopathy. LUNGS: Clear to auscultation bilaterally. No W/R/R. CARDIOVASCULAR: Irreg irreg ABDOMEN: Soft, non-tender and non-distended. BS normoactive x 4 quad. EXTREMITIES: No edema. Non-tender. Peripheral pulses +2/4. +straight leg raise on L Results & Data Results & Data Vital Signs (Past 12 Hours) Vital Signs Temp Pulse Pulse Resp BP Pulse Ox O2 Del Method 04/21/24 03:28 36.4 C L 70 15 132/84 99 Room Air 04/20/24 22:39 36.4 C L 95 H 14 110/58 L 97 Room Air 04/20/24 22:02 103 H 04/20/24 20:32 69 118/78 04/20/24 19:48 36.8 C 93 H 15 92/56 L 95 Room Air PG Care Time/CCT Total # of Minutes Spent Total Time Spent with Patient: Total time spent is greater than 50% in coordination of care (as documented) at patient's floor/unit and/or counseling patient: Coding Level of Care Code 37822 SUB INP/OBS CARE 2/35MIN Diagnoses Hip pain, left M25.552 Lumbar compression fracture S32.000A Paroxysmal atrial fibrillation with RVR I48.0 Heart failure with improved ejection fraction (HFimpEF) I50.32
--- NOTE | 2024-04-21 08:52 | Hospitalist Progress Note ---
Date of Service April 21, 2024 Assessment & Plan (1) Hip pain, left: Plan: subacute lumbar compression fracture L3 - S/p lumbar interbody fusion on 03/[address] Acuña - Ongoing issues since surgery, increased pain and difficulty ambulating - Per Dr. Acuña follow up note from 04/15, ordered [place] 5/325mg q4 prn moderate-severe pain and gabapentin 400mg daily x3 days then increased to BID x3 days then TID - Discussed case with Dr. Acuña, MRI lumbar spine as well as left hip w/o contrast No hardware complication on imaging. - Consult PT/OT to eval and treat - CM consult for d/c planning, anticipate will need skilled rehab (2) Paroxysmal atrial fibrillation with RVR: Plan: Chronic with variable rate control - Continue Metoprolol Succ, and Eliquis - Med tele for HR monitoring - Will stop cardizem and amiodarone. -Increased metoprolol to 150 mg PO BID. (3) Heart failure with improved ejection fraction (HFimpEF): Plan: Chronic stable - Low salt diet ordered, heart healthy - - Focus on rate control for afib as outlined above Acute delirium Likely hospital acquired. WIlll monitor. Plan VTE prophylaxis covered by resumption of apixaban. Admission and Anticipated Discharge Date Admission Date: April 16, 2024 Results & Data Results & Data Vital Signs (Past 12 Hours) Vital Signs Temp Pulse Pulse Resp BP Pulse Ox O2 Del Method 04/21/24 07:49 97.3 F L 109 H 17 115/72 99 Room Air 04/21/24 06:06 117 H 04/21/24 03:28 97.5 F L 70 15 132/84 99 Room Air 04/20/24 22:39 97.5 F L 95 H 14 110/58 L 97 Room Air 04/20/24 22:02 103 H PG Care Time/CCT Total # of Minutes Spent Total Time Spent with Patient: Total time spent is greater than 50% in coordination of care (as documented) at patient's floor/unit and/or counseling patient: Coding Diagnoses Hip pain, left M25.552 Paroxysmal atrial fibrillation with RVR I48.0 Heart failure with improved ejection fraction (HFimpEF) I50.32
--- NOTE | 2024-04-21 11:07 | Cardiology Progress Note ---
Date of Service April 21, 2024 Assessment & Plan (1) Persistent atrial fibrillation: Plan: -Ventricular response still elevated. -Would add digoxin 0.25 mg IV now, and again in 4 hours if necessary. -Continue metoprolol to tartrate 150 Mg twice daily. -Continue Eliquis 5 mg twice daily. (2) Heart failure with recovered ejection fraction (HFrecEF): Plan: -Outpatient regimen includes losartan hydrochlorothiazide, metoprolol succinate, and the prn use of Lasix. -Compensated at this time. (3) Hypertension: Plan: -Adequate control on current regimen. Admission and Anticipated Discharge Date Admission Date: April 16, 2024 Subjective The patient is resting comfortably in bed without complaints of chest pain, dyspnea, or palpitations. Physical Exam Physical Exam: In general is well-developed well-nourished white female in no acute distress. HEENT exam is negative. Neck is supple with full carotid upstrokes. There are no carotid bruits. No jugular venous distention. There is no thyromegaly. Cardiovascular exam reveals an irregular rhythm with distant heart sounds. No obvious murmurs. Lungs are clear without rales, rhonchi or wheezes. Abdomen is soft and nontender without bruits. Extremities reveal intact radial artery pulses bilaterally. There is no peripheral edema. Results & Data Vital Signs (Past 12 Hours) Vital Signs Temp Pulse Pulse Resp BP Pulse Ox O2 Del Method 04/21/24 07:49 36.3 C L 109 H 17 115/72 99 Room Air 04/21/24 06:06 117 H 04/21/24 03:28 36.4 C L 70 15 132/84 99 Room Air Diagnostic Findings digital proofing and platemaker notes atrial fibrillation with a ventricular response varying from 100 to 115 bpm. PG Care Time/CCT Total # of Minutes Spent Total Time Spent with Patient: Total time spent is greater than 50% in coordination of care (as documented) at patient's floor/unit and/or counseling patient: Coding Level of Care Code 72921 SUB INP/OBS CARE 3/50MIN Diagnoses Persistent atrial fibrillation I48.19 Heart failure with recovered ejection fraction (HFrecEF) I50.32 Hypertension, unspecified type I10 Hypertension type: unspecified (3) Hypertension Hypertension type: unspecified Qualified Code(s): I10 - Essential (primary) hypertension
[2024-04-21 11:28] VITALS: BP 103/69; RESP 18; TEMP 97.5; O2SAT 98
[2024-04-21 12:16] VITALS: PULSE 116
--- NOTE | 2024-04-21 15:52 | Discharge Summary ---
Discharge Summary Date of Service April 21, 2024 Principal Dx & Hospital Course #1 = Principal Diagnosis (1) Hip pain, left: Hip and back pain are greatly improved patient is ambulating about her room. Subacute lumbar compression fracture L3 - S/p lumbar interbody fusion on 03/[address] Acuña, pt will have outpt Physical therapy - Per Dr. Acuña follow up note from 04/15, ordered Firth 5/325mg q4 prn moderate-severe pain and gabapentin - Discussed case with Dr. Acuña, MRI lumbar spine as well as left hip w/o contrast No hardware complication on imaging. (2) Paroxysmal atrial fibrillation with RVR: Chronic with variable rate control - Continue Metoprolol Succ, and Eliquis. consider digoxin if not improved - Will stop cardizem and amiodarone. -Increased metoprolol to 150 mg PO BID. 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 WIlll monitor. Notes For Next Care Provider if heart rate is poorly controlled consider renal dosed digoxin Admission HPI Per Admitting Provider Kari is an 83 yo F with a pmhx of HFimEF, paroxysmal afib, DLD, history of breast CA, HTN, hypothyroidism, and spinal stenosis s/p lumbar interbody fusion on 03/09 who presents to the ER today c/o uncontrolled left flank pain that is radiating down her left leg. She denies altered sensation but her pain makes it difficult for her to ambulate. Pain is exacerbated by movement. She has failed Tramadol in the past due to being ineffective for pain relief and also significant constipation. She has been in the ER since being discharged from the hospital, most recently on 04/10 where she had a CT which confirmed hardware and cage to be be unchanged but new findings of healing left transverse process fracture of L4 and a new L3 compression fx that was not picked up by the radiologist. She was just seen in follow up by Dr. Acuña yesterday, images were reviewed, and it was advised that she start on norco for pain control + gabapentin. She presented back to the ER today due to persistent pain and difficulty with ambulation. She was medicated with Fentanyl x2 with some relief. She did not take any of her morning medications and is currently in afib variable rate 110-120s. She was given a dose of Cardizem and Metoprolol Succ. She did not receive her dose of Amiodarone that she takes daily. She has had issues with rate control in the recent past, but patient and family has declined to pursue cardioversion. She was also hydrated by ED with NSS @ 125 ml/hr. She denies chest pain or dyspnea. No loss of bowel/bladder control or saddle anesthesias. She has been referred for admission to hospital medicine team. Discharge Exam pt is awake and alert, she has been walking in the room her heart rate is acceptable, may need digoxin will follow up with Dr Koch Discharge Plan Discharge Items Patient Disposition: Home - Home Health Services Reason For Visit: BACK PAIN Discharge Diagnosis: post operative back pain atrial fibrillation rapid rate Activity: Per Instructions section Activity Comment: home PT and walking Non-emergency contact: Primary Care Provider, Surgeon and Research Assistant Professor Call non-emergency contact if: your symptoms worsen Follow-up/Referrals: Gregorio Koch MD [Physician] - 05/05/24 9:00 am Latoya Beth MD [Primary Care Provider] - Diet: Heart Healthy Addtl Attending Provider Instructions: your heart medicines have been changed, and please follow up with Dr Koch at your earliest chance Please continue to follow up with your spine surgeon have home physical therapy Pending Studies at Discharge: No Stand-Alone Forms: [employer], Smoking Cessation Medications and DC Order Prescriptions: New metoprolol tartrate 50 mg Tablet 150 mg PO BID Qty: 180 5RF Rx Instructions: may substitute higher dose per pill to make easier please give one month confirmed bid dose with cardiology Continued Centrum Silver Women 8 mg iron-400 mcg-300 mcg tablet 1 tab PO QDL furosemide 40 mg tablet 40 mg PO DAILY PRN (Reason: edema in feet) Qty: 90 3RF Rx Instructions: Take 1 tablet daily until body weight at baseline and swelling minimal, then take only as needed tramadol 50 mg tablet 50 mg PO BID PRN (Reason: pain) Qty: 30 0RF Rx Instructions: In addition to the tramadol, take acetaminophen either regular strength or extra, 2 pills. Eliquis 5 mg tablet 5 mg PO BID Qty: 180 3RF clindamycin HCl 300 mg capsule 600 mg PO UD PRN (Reason: prior to dental procedure) Rx Instructions: 600 mg PO before dental procedures losartan-hydrochlorothiazide 50-12.5 mg tablet 1 tab PO QAM Qty: 90 0RF diclofenac sodium [Voltaren Arthritis Pain] 1 % gel 4 g topical QID Qty: 100 2RF Rx Instructions: apply to single knee, ankle, foot; for foot includes sole/toes/top of foot acetaminophen [Tylenol Arthritis Pain] 650 mg tablet extended release 650 mg PO UD PRN (Reason: Pain) Rx Instructions: 650 mg orally DIRECTED NEEDED FOR PAIN; Saccharomyces boulardii 50 mg Capsule 50 mg PO BID Glucosamine Complex-MSM Capsule 1 cap PO QDL omega-3 fatty acids 1,000 mg Capsule 2,000 mg PO QDL loratadine [Claritin] 10 mg Tablet 10 mg PO QAM famotidine 40 mg tablet 40 mg PO QAM cyanocobalamin (vitamin B-12) [Vitamin B-12] 1,000 mcg Tablet 1,000 mcg PO QDL fluticasone propionate 50 mcg/actuation [place],Suspension 2 spray INTRANASAL QAM Rx Instructions: administer into each nostril melatonin 5 mg Tablet 5 mg PO HS PRN (Reason: Sleep) calcium carbonate-vitamin D3 [Os-Glenn 500 + D3] 500 mg-15 mcg (600 unit) Tablet 1 tab PO QDL calcium glycerophosphate 130 mg PO UD PRN (Reason: When eating problem food) levothyroxine 100 mcg tablet 100 mcg PO DAILY hydrocodone-acetaminophen 5-325 mg tablet 0 tab PO BID PRN (Reason: pain) Rx Instructions: Unable to verify med w/ pharmacy at this date/time. Original Directions: 1 tab by mouth twice daily as needed prednisone 20 mg tablet See Rx Instructions .ROUTE .COMPLEX Rx Instructions: Please take 20mg twice daily on days 1 through 5. Please take 20mg daily on day 6 through 10. gabapentin 300 mg capsule See Rx Instructions .ROUTE .COMPLEX Rx Instructions: Take 300mg by mouth daily x 4 days then 300mg bid x 4 days then 300mg tid x 4 days PreserVision AREDS-2 250-90-40-1 mg Capsule 1 tab PO BID Cbd Cream 1 dose topical BID Rx Instructions: Unable to verify at this date/time. OTC med simvastatin 20 mg tablet 20 mg PO HS Rx Instructions: TAKE 1 TABLET BY MOUTH EVERY DAY IN THE EVENING potassium chloride 20 mEq tablet extended release 0 meq PO DAILY PRN (Reason: when taking lasix) Rx Instructions: Pharmacy shows this last filled in 05/2023 x30 day supply. Take 20meq by mouth every day that Furosemide is taken. docusate sodium 50 mg/5 mL Liquid 50 mg PO DAILY PRN (Reason: Constipation) Rx Instructions: Unable to verify OTC meds at this date/time. Discontinued amiodarone 200 mg tablet 200 mg PO DAILY Qty: 90 3RF metoprolol succinate 100 mg tablet extended release 24 hr 100 mg PO DAILY Discharge Orders: Discharge Order (Routine); Ordered 04/21/24 Ordered By: Antonio Wang Admission Data Admit Date/Time: 04/16/24 14:14 Attending Provider: Antonio Wang Admit Provider: Jason López Primary Care Provider: Latoya Beth Other Providers: Tom Acuña; Jason López; Naun Lopez; Zacarias Carlton; Gregorio Koch; Isiah Andersen; Deangelo Hill; Javon Diop Jr; Noman Ramirez; Lucrecia Rodgers; Marcela Wilder; Jhonatan Calyton; Jhonatan Torres; Andres Cummings; Rosibel Friedman; Jose L Pratt; Mana Gates; Fred Anderson; Salvador Jenkins; Maxwell Cruz Hospital Stay Data Consultations 04/16/24 13:29 ED Decision to Admit Stat 04/16/24 14:40 Consult Orthopedic Spine Surgery Routine 04/20/24 08:58 Consult Cardiology Routine Diagnostic Imagining Performed 04/16/24 10:06 CT lumbar spine w con Stat 04/16/24 15:08 MRI Hip [MR hip LT wo con] Routine MRI Lumbar Spine [MR lumbar spine wo con] Routine Pending Results Patient Have Any Pending Studies at Discharge: No Discharge Instructions Given to Patient (Per Discharging Provider) your heart medicines have been changed, and please follow up with Dr Koch at your earliest chance Please continue to follow up with your spine surgeon have home physical therapy Total Time Total Time Spent Total Time Spent (In Minutes): It required greater than 30 minutes to prepare this patient for discharge. Coding Level of Care Code 28911 INP/OBS DISCH >30 MIN Diagnoses Hip pain, left M25.552 Paroxysmal atrial fibrillation with RVR I48.0 Heart failure with improved ejection fraction (HFimpEF) I50.32
== END 2024-04-21 15:01 | disposition home health service (06) | DRG 556 ==
LOC: ED 08:59 → INTOOBSV 14:14 → 2W 14:14 → SUATTDRO 14:14 → 2W 20:30

== ENCOUNTER 2024-04-23 10:17 | Inpatient (IN) ==
[2024-04-23] MEDS ORDERED: MoRPHine SULFATE 2 MG/ML CARP IV PRN (10:44)
--- NOTE | 2024-04-23 10:47 | Emergency Department Note ---
Impression & Plan Closed intertrochanteric fracture of left hip, Paroxysmal atrial fibrillation, Fall ED Provider Note NAME: EVANS DASILVA AGE: 83 SEX: F : 1940 ARRIVES VIA: Ambulance INFORMANT: Patient ED PROVIDER(S): Rafiq Fernandes MD CHIEF COMPLAINT: Fall, left hip pain PLAN: Disposition: Admit MEDICAL DECISION MAKING: The patient is a pleasant 83-year-old woman with a past medical history of atrial fibrillation on Eliquis, cardiomyopathy, anemia, hyperlipidemia, hypothyroidism who presents to the emergency department via EMS from her assisted living facility at the [facility] for a fall this morning when she tripped on her walker getting out of bed to answer the door she reports she did not lose her head or lose consciousness. She reports left hip pain where she is unable to move it due to the pain. She denies any numbness. Denies any recent illness including fevers, chills, cough or congestion. On evaluation patient is uncomfortable but no acute distress, afebrile with stable vital signs. She has tenderness of the left inguinal region without overt deformity or shortening. She has no midline CTL spine tenderness palpation or step-offs. Head is atraumatic. EKG demonstrates atrial fibrillation without overt acute ischemia. CXR negative for acute cardiopulmonary process per my personal preliminary review/interpretation. Plain film of the pelvis and left hip demonstrates acute displaced intertrochanteric fracture of the left femur. WBC and platelets within limits. H/H proximal to prior range values. Chemistry without metabolic acidosis. Creatinine 1.3, similar to prior. LFTs are unremarkable. Patient was treated with IV APAP and as needed IV morphine. Findings were reviewed with the patient she does agree with plan for admission for further management. Dr. Rodriguez, orthopedic surgery on-call who is also the patient's orthopedist was made aware. Case was d/w Dr. Ramirez, [facility] hospitalist who will evaluate the patient for admission. Further management per admitting team. Triage Nursing notes reviewed and agree them. Prior/external medical records reviewed Vital Signs: reviewed Differential diagnosis: Fracture, dislocation, contusion, intra-abdominal, pneumothorax, intrathoracic, intracranial, neurologic, compartment syndrome, rhabdomyolysis, as well as other pathologies. ER treatment provided: See below. Diagnostics interpreted by me: ECG: Atrial fibrillation with RVR, 103 bpm, no ectopy, ST and T wave abnormality, no overt ST elevation or depression, QTc 458, QRS 92. Cardiac Monitoring: An order for continuous cardiac monitoring was placed and demonstrated Atrial fibrillation with RVR, 103 bpm, no ectopy. Laboratory studies: See below Imaging studies: See below Consultation(s): Dr. Ramirez, [facility] hospitalist HPI: The patient is a pleasant 83-year-old woman with a past medical history of atrial fibrillation on Eliquis, cardiomyopathy, anemia, hyperlipidemia, hypothyroidism who presents to the emergency department via EMS from her assisted living facility at the [facility] for a fall this morning when she tripped on her walker getting out of bed to answer the door she reports she did not lose her head or lose consciousness. She reports left hip pain where she is unable to move it due to the pain. She denies any numbness. Denies any recent illness including fevers, chills, cough or congestion. ROS: See above HPI for pertinent positives & negatives. A total of 10 systems reviewed and were otherwise negative. VITALS:See Below PHYSICAL EXAMINATION: GENERAL: Awake, alert, uncomfortable-appearing, in no distress HENT: Normocephalic, atraumatic. Oropharynx unremarkable. EYES: Normal conjunctiva. Sclera non-icteric. EOMI. No nystamgus. PEARRL. NECK: Supple. No nuchal rigidity. FROM. No JVD. No midline tenderness to palpation or step-offs. RESPIRATORY: Clear to auscultation. CARDIAC: Regular rate, normal rhythm. Extremities warm and well perfused. Pulses equal. ABDOMEN: Soft, non-distended. No tenderness to palpation. No rebound or guarding. No masses. MUSCULOSKELETAL: Chest examination reveals no tenderness. The back is symmetrical on inspection without obvious abnormality. No midline tenderness to palpation or step-offs. There is no CVA tenderness to palpation. Tenderness of the left inguinal region without overt deformity or shortening. LOWER EXTREMITIES: Calves are equal size bilaterally and non-tender. No edema. No discoloration. NEURO: Normal sensorium. No sensory or motor deficits noted. SKIN: No rash or jaundice noted. Rafiq Fernandes MD Past Med/Surg History Problem List (Updated 04/24/24 @ 01:06 by Rafiq Fernandes MD) Fall (Acute) Closed intertrochanteric fracture of left hip (Acute) Closed left hip fracture Persistent atrial fibrillation Lumbar compression fracture (~04/15/24) Inferior endplate L3. Back pain (Acute) Cognitive decline History of lumbar fusion SOB (shortness of breath) History of breast cancer Dx 2017 left breast; h/o lumpectomy + radiation-no limb restriction Heart failure with recovered ejection fraction (HFrecEF) Paroxysmal atrial fibrillation (Acute) Lumbar stenosis with neurogenic claudication Low back pain radiating to left lower extremity Degenerative spondylolisthesis HFrEF (heart failure with reduced ejection fraction) Cardiomyopathy Heart failure with mid-range ejection fraction Left hip pain Rotator cuff arthropathy History of left breast cancer Rotator cuff arthropathy of both shoulders Lumbar spondylosis Anemia (Acute) Dyslipidemia Urinary frequency Bunion, left foot Degenerative joint disease of left midfoot Degenerative joint disease of right midfoot Trigger finger of right hand Osteopenia (Acute) Insomnia Hypothyroidism Degenerative joint disease, multiple joints on both sides of body Anxiety Allergic rhinitis (Acute) Medical History Strain of left psoas muscle Hip pain, left History of transesophageal echocardiography (ULI) (04/2023) Closed fracture of right proximal humerus (01/15/23) fell out of bed Renal angiomyolipoma GERD (gastroesophageal reflux disease) Well controlled and stable Depression Malignant neoplasm of lower-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) Orthopnea ongoing for many years per patient; denies change or worsening Claustrophobia Difficult intravenous access Pulmonary hypertension NSTEMI (non-ST elevated myocardial infarction) Type II demand NSTEMI 04/2023 in the setting of new A-fib RVR Urinary frequency Osteopenia Lumbar stenosis Hypertension Dyslipidemia Lumbar back pain Degenerative spondylolisthesis Degenerative joint disease involving multiple joints Cardiomyopathy History of anxiety no meds currently Angiomyolipoma of both kidneys Allergic rhinitis History of cardioversion 04/2023 @ [facility] Atrial fibrillation diagnosed 04/2023--follows with Dr. Koch--had cardioversion 12/27/23--on eliquis/metoprolol Lumbar radiculopathy, right Duodenal ulcer hx GI bleeding hx of 2020 Osteoarthritis Overactive bladder Hypothyroidism LVH (left ventricular hypertrophy) follows with Dr. Koch Surgical History S/P lumbar fusion History of total right knee replacement (TKR) 01/2021 @ [facility] History of left knee replacement History of colonoscopy History of lumpectomy of left breast (02/22/17) Left partial mastectomy with [facility] 02/22/17 Dr. Vora History of cholecystectomy History of tonsillectomy and adenoidectomy History of breast biopsy Family History Unknown Aortic aneurysm Other No family history of adverse response to anesthesia Social History Smoking Status: Never smoker Second Hand Exposure: No; Do You Dip or Chew Tobacco: No; Hx Alcohol Use: Yes Alcohol type: wine Hx Substance Use: No Preferred Language: Serbian Communication Ability: Effective Visual Impairment: Partially Limited Grocery Bagger Required: No Beliefs That Will Affect Care: None marital status: / Current Living Situation Comment: [facility] current occupational status: retired How many Children do You have: 2 Feels Safe at Home: Yes Assistive Devices: Glasses and Walker Allergies Allergies Allergy/AdvReac Type Severity Reaction Status Date / Time NSAIDS (Non-Steroidal Allergy Severe RENAL Verified 04/14/24 10:18 Anti-Inflamma FAILURE adhesive Allergy Mild RASH Verified 04/14/24 10:18 latex Allergy Mild RASH Verified 04/14/24 10:18 procaine Allergy Mild prolonged Verified 04/14/24 10:18 effect amoxicillin AdvReac Intermediate Diarrhea Verified 04/14/24 10:18 orange AdvReac Intermediate "not Verified 04/14/24 10:18 supposed to take any citrus foods" orange juice AdvReac Intermediate "not Verified 04/14/24 10:18 supposed to take any citrus foods" pepper (genus Capsicum) AdvReac Intermediate "not Verified 04/14/24 10:18 supposed to take any due to an overactive bladder" sesame seed AdvReac Intermediate "not Verified 04/14/24 10:18 supposed to take any due to an overactive bladder" Home Meds Home Medications Medication Instructions Recorded Confirmed tgygdwal-vkwl-fbee 8 mg-folic 400 1 tab PO QDL 12/20/20 04/23/24 mcg-K 50 mcg-lutein 300 mcg tablet (Centrum Silver Women) clindamycin HCl 300 mg capsule 600 mg PO UD PRN prior to dental 05/18/21 04/23/24 procedure loratadine 10 mg tablet (Claritin) 10 mg PO QAM 04/29/23 04/23/24 omega-3 fatty acids 1,000 mg 2,000 mg PO QDL 04/29/23 04/23/24 capsule Saccharomyces boulardii 50 mg 50 mg PO BID 05/10/23 04/23/24 capsule izloipkmbci-izc-uerirzpug-vitC 1 cap PO QDL 05/10/23 04/23/24 capsule (Glucosamine Complex-MSM capsule) acetaminophen 650 mg 650 mg PO UD PRN Pain 12/04/23 04/23/24 tablet,extended release (Tylenol Arthritis Pain) Cbd Cream 1 dose topical BID 12/25/23 04/23/24 potassium chloride 20 mEq 20 meq PO DAILY PRN when taking 12/25/23 04/23/24 tablet,extended release lasix simvastatin 20 mg tablet 20 mg PO HS 12/25/23 04/23/24 vit C 250 mg-vit E 90 mg-zinc 40 1 tab PO BID 12/25/23 04/23/24 mg-copper 1 ts-fodkme-dyayzj capsule (PreserVision AREDS-2) docusate sodium 50 mg/5 mL oral 50 mg PO DAILY PRN Constipation 12/31/23 04/23/24 liquid calcium 500 mg (as 1 tab PO QDL 04/16/24 04/23/24 carbonate)-vitamin D3 15 mcg (600 unit) tablet (Os-Glenn 500 + D3) calcium glycerophosphate 130 mg PO UD PRN When eating 04/16/24 04/23/24 problem food cyanocobalamin (vitamin B-12) 1,000 mcg PO QDL 04/16/24 04/23/24 1,000 mcg tablet (Vitamin B-12) famotidine 40 mg tablet 40 mg PO QAM 04/16/24 04/23/24 fluticasone propionate 50 2 spray intranasal QAM 04/16/24 04/23/24 mcg/actuation nasal spray,suspension gabapentin 300 mg capsule See Rx Instructions .Route .COMPLEX 04/16/24 04/23/24 hydrocodone 5 mg-acetaminophen 325 1 tab PO BID PRN pain 04/16/24 04/23/24 mg tablet levothyroxine 100 mcg tablet 100 mcg PO DAILY 04/16/24 04/23/24 melatonin 5 mg tablet 5 mg PO HS PRN Sleep 04/16/24 04/23/24 Previous Rx's Medication Instructions Recorded apixaban 5 mg tablet (Eliquis) 5 mg PO BID #180 tabs 05/20/23 furosemide 40 mg tablet 40 mg PO DAILY PRN edema in feet 01/13/24 #90 tabs diclofenac sodium 1 % topical gel 4 g topical QID #100 grams 04/09/24 (Voltaren Arthritis Pain) losartan 50 mg-hydrochlorothiazide 1 tab PO QAM #90 tabs 04/09/24 12.5 mg tablet tramadol 50 mg tablet 50 mg PO BID PRN pain #30 tabs 04/10/24 metoprolol tartrate 50 mg tablet 150 mg (3 x 50 mg) PO BID #180 tabs 04/21/24 Results & Data (ED) Vital Signs Vital Signs - 24 hr 04/23/24 10:16 04/23/24 10:16 04/23/24 10:16 Temperature 36.5 C Temperature Source Oral Pulse Rate 90 Pulse Rate from SpO2 Sensor Respiratory Rate 20 Blood Pressure 114/79 Blood Pressure Mean 90 Pulse Oximetry 92 Oxygen Delivery Method Room Air Room Air Sepsis Recent Fever Within 48 Hours No Sepsis New/Unexplained Change in Mental Status No Sepsis Action Taken by Nursing No Action Required 04/23/24 10:24 04/23/24 10:36 04/23/24 10:48 Temperature Temperature Source Pulse Rate 84 94 H 94 H Pulse Rate from SpO2 Sensor Respiratory Rate 15 18 Blood Pressure 119/51 L Blood Pressure Mean 73 Pulse Oximetry 94 92 Oxygen Delivery Method Sepsis Recent Fever Within 48 Hours Sepsis New/Unexplained Change in Mental Status Sepsis Action Taken by Nursing 04/23/24 11:03 04/23/24 12:09 04/23/24 13:03 Temperature Temperature Source Pulse Rate 85 104 H 96 H Pulse Rate from SpO2 Sensor 105 H Respiratory Rate 20 12 20 Blood Pressure 119/51 L Blood Pressure Mean 73 Pulse Oximetry 92 97 94 Oxygen Delivery Method Sepsis Recent Fever Within 48 Hours Sepsis New/Unexplained Change in Mental Status Sepsis Action Taken by Nursing Laboratory Data Attestation: I reviewed the patient's lab results. 04/23/24 11:07 04/23/24 11:07 Lab Results 04/23/24 Range/Units 11:07 WBC 8.58 (4.8-10.8) K/ul RBC 3.87 L (4.20-5.40) M/uL Hgb 10.5 L (12.0-16.0) g/dl Hct 34.3 L (37.0-47.0) % MCV 88.6 (80.0-100.0) fL MCH 27.1 (25.0-34.0) pg MCHC 30.6 L (32.0-36.0) g/dL RDW Std Deviation 49.9 H (36.4-46.3) fL RDW Coeff of Omar 15.4 H (11.5-14.5) % Plt Count 246 (130-400) K/uL MPV 10.3 (9.4-12.4) fL Immature Gran % (Auto) 1.4 % Neut % (Auto) 71.4 % Lymph % (Auto) 11.3 % [place] % (Auto) 7.2 % Eos % (Auto) 8.2 % Baso % (Auto) 0.5 % Neut # (Auto) 6.13 (1.40-6.50) K/uL Lymph # (Auto) 0.97 L (1.20-3.40) K/uL [place] # (Auto) 0.62 H (0.11-0.59) K/uL Eos # (Auto) 0.70 H (0.00-0.50) K/uL Baso # (Auto) 0.04 (0.00-0.20) K/uL Immature Gran # (Auto) 0.12 (0.01-0.20) K/uL PT 10.4 (9.0-12.0) Seconds INR 1.0 (0.9-1.1) APTT 25 (21-31) Seconds PTT Ratio 0.9 Sodium 139 (136-145) mmol/L Potassium 3.8 (3.5-5.1) mmol/L Chloride 102 (98-107) mmol/L Carbon Dioxide 30 (21-32) mmol/L Anion Gap 7 (3-11) BUN 31 H (6-23) mg/dl Creatinine 1.30 H (0.6-1.2) mg/dl Est Cr Clr Drug Dosing 32.9 ml/min eGFR 40.30 BUN/Creatinine Ratio 23.8 H (10-20) Glucose 103 H (70-99(Fasting)) mg/dl Calcium 8.9 (8.6-10.3) mg/dl Total Bilirubin 0.3 (0.2-1.0) mg/dl AST 20 (13-39) U/L ALT 17 (7-52) U/L Alkaline Phosphatase 152 H (34-104) U/L Total Protein 6.0 (6.0-8.3) gm/dl Albumin 3.6 (3.4-5.0) gm/dl Globulin 2.4 L (2.5-4.0) gm/dl Albumin/Globulin Ratio 1.5 (0.9-2) Administered Medications Cefazolin Sodium (Ancef 2000mg) 2,000 mg in 15 mls @ 3.75 mls/min IV Q8H [facility]; Protocol Stop: 04/24/24 09:03 Last Admin: 04/24/24 00:42 Dose: 3.75 mls/min Documented By: LORETTA Metoprolol Tartrate (Metoprolol Tartrate 50 Mg Tab) 150 mg PO BID [facility] Stop: 05/23/24 20:59 Last Admin: 04/23/24 22:00 Dose: Not Given Documented By: LORETTA Morphine Sulfate (Morphine Sulfate 4 Mg/Ml 1 Ml Carp\\Vial) 2 mg IV Q2H PRN PRN Reason: Severe Pain (Rating 7,8,9,10) Stop: 05/07/24 10:43 Last Admin: 04/24/24 00:36 Dose: 2 mg Documented By: Admin: 04/23/24 15:23 Dose: 2 mg Documented By: Admin: 04/23/24 13:12 Dose: 2 mg Documented By: Admin: 04/23/24 11:12 Dose: 2 mg Documented By: FRENCH Non-Formulary Medication (Saccharomyces Boulardii) 50 mg PO BID [facility] Stop: 05/23/24 20:59 Last Admin: 04/23/24 22:00 Dose: Not Given Documented By: LORETTA Simvastatin (Simvastatin 20 Mg Tab) 20 mg PO HS [facility] Stop: 05/23/24 20:59 Last Admin: 04/23/24 22:00 Dose: Not Given Documented By: LORETTA Discontinued Medications Bupivacaine HCl/Epinephrine Bitart (Bupivacaine/Epinephrine 0.5% Mpf 1:200,000 30 Ml Vial) Confirm Administered Dose 30 ml .ROUTE .[facility] Stop: 04/23/24 17:40 Last Admin: 04/23/24 18:15 Dose: 30 ml Documented By: [id number] Fentanyl Citrate (Fentanyl Citrate Pf 100 Mcg/2 Ml Vial) 50 mcg IV Q5M PRN PRN Reason: PACU Use Only-Pain Stop: 04/24/24 02:35 Last Admin: 04/23/24 19:15 Dose: 50 mcg Documented By: ALEXANDER Acetaminophen (Ofirmev) 1,000 mg in 100 mls @ 400 mls/hr IV NOW STA Stop: 04/23/24 10:58 Last Infusion: 04/23/24 12:41 Dose: Infused Documented By: Admin: 04/23/24 11:12 Dose: 400 mls/hr Documented By: FRENCH Cefazolin Sodium (Ancef 2000mg) 2,000 mg in 15 mls @ 3.75 mls/min IV ONCE ONE; Protocol Stop: 04/23/24 17:55 Last Admin: 04/23/24 17:30 Dose: 3.75 mls/min Documented By: CHEN Tranexamic Acid (Tranexamic Acid / 0.7% Nacl 1000mg/100ml Bag) Confirm Administered Dose 1,000 mg IV .STK-MED ONE Stop: 04/23/24 17:31 Last Admin: 04/23/24 17:35 Dose: 1,000 mg Documented By: CHEN Imaging Data Radiologist's Impression: Hip X-Ray 04/23/24 00:00 FL hip LT 2-3V CLINICAL HISTORY: L HIPacute fracture left proximal femur COMPARISON STUDY: Radiographs of same day FLUOROSCOPY TIME: 104.6 seconds FLUOROSCOPY IMAGES: 5 EXPOSURE DOSE: 23.14 mGy FINDINGS: Status post placement of intertrochanteric nail with medullary roque fixating the acute proximal left femoral fracture. There is improved near anatomic alignment. Expected postoperative soft tissue swelling with deep tissue air. Partially imaged knee arthroplasty. IMPRESSION: Fluoroscopic assistance as above. ACT 112: Negative or not required by law. Electronically signed by: Blaise Mccain M.D. 04/23/2024 6:59 PM Hip X-Ray 04/23/24 00:00 FL hip LT 2-3V CLINICAL HISTORY: L HIPacute fracture left proximal femur COMPARISON STUDY: Radiographs of same day FLUOROSCOPY TIME: 104.6 seconds FLUOROSCOPY IMAGES: 5 EXPOSURE DOSE: 23.14 mGy FINDINGS: Status post placement of intertrochanteric nail with medullary roque fixating the acute proximal left femoral fracture. There is improved near anatomic alignment. Expected postoperative soft tissue swelling with deep tissue air. Partially imaged knee arthroplasty. IMPRESSION: Fluoroscopic assistance as above. ACT 112: Negative or not required by law. Electronically signed by: Blaise Mccain M.D. 04/23/2024 6:59 PM Hip/Pelvis X-Ray 04/23/24 10:44 XR hip LT 2V w pelvis CLINICAL HISTORY: hip pain/preop COMPARISON: MRI of the left hip April 16, 2024. FINDINGS: Postoperative findings within the lumbar spine are partially imaged. There is an acute oblique intertrochanteric fracture of the left femur. Fracture is displaced 1.2 cm. Degenerative changes at the symphysis pubis pubis are present. No additional fractures are identified on this exam. Partial right femur is intact. IMPRESSION: Acute displaced intertrochanteric fracture of the left femur. ACT 112: Negative or not required by law. Electronically signed by: Norm Tineo M.D. 04/23/2024 12:14 PM Chest X-Ray 04/23/24 10:45 XR chest 1V not portable HISTORY: 83 years-old Female hip pain/preop preoperative exam COMPARISON: 04/16/2024 TECHNIQUE: AP view of the chest FINDINGS: Cardiac silhouette is enlarged. Right hemidiaphragmatic elevation. No pneumothorax, pleural effusion or airspace consolidation. Suggestion of calcified hilar lymph nodes. Surgical clips project over the right upper quadrant abdomen and left axilla. IMPRESSION: Cardiomegaly without acute process. ACT 112: Negative or not required by law. The above report was generated using voice recognition software. It may contain grammatical, syntax or spelling errors. Electronically signed by: Blaise Mccain M.D. 04/23/2024 12:08 PM Discharge Plan Visit Data Chief Complaint: Trauma Stated Complaint: Fall ED Provider: Rafiq Fernandes Discharge Problem: Closed intertrochanteric fracture of left hip, Paroxysmal atrial fibrillation, Fall Patient Disposition: Admitted As Inpatient Discharge Instructions Interventions: ED Discharge Assessment Last Done: 04/23/24 16:17 Discharge Problem: Closed intertrochanteric fracture of left hip Qualifiers: Encounter type: initial encounter Fracture alignment: nondisplaced Qualified Code(s): S72.145A - Nondisplaced intertrochanteric fracture of left femur, initial encounter for closed fracture Fall Qualifiers: Encounter type: initial encounter Qualified Code(s): W19.XXXA - Unspecified fall, initial encounter
[2024-04-23] MEDS: ACETAMINOPHEN 1,000 MG/100 ML VIAL IV STA (11:12)
[2024-04-23] MEDS: MoRPHine SULFATE 4 MG/ML 1 ML CARP\\VIAL IV PRN (11:12)
[2024-04-23 11:26] LABS: Basophils # (auto) 0.04 K/uL (0.00-0.20); Basophils % (auto) 0.5 %; Eosinophils % (auto) 8.2 %; Hematocrit (blood only) 34.3 % (37.0-47.0); Hemoglobin 10.5 g/dl (12.0-16.0); Immature Granulocytes # (auto) 0.12 K/uL (0.01-0.20); Immature Granulocytes % (auto) 1.4 %; Lymphocytes # (auto) 0.97 K/uL (1.20-3.40); Lymphocytes % (auto) 11.3 %; Mean Corpuscular Hemoglobin 27.1 pg (25.0-34.0); Mean Corpuscular Hgb Conc 30.6 g/dL (32.0-36.0); Mean Corpuscular Volume 88.6 fL (80.0-100.0); Mean Platelet Volume 10.3 fL (9.4-12.4); Monocytes # (auto) 0.62 K/uL (0.11-0.59); Monocytes % (auto) 7.2 %; Neutrophils # (auto) 6.13 K/uL (1.40-6.50); Neutrophils % (auto) 71.4 %; Platelet Count 246 K/uL (130-400); RDW Coefficient of Variation 15.4 % (11.5-14.5); RDW Standard Deviation 49.9 fL (36.4-46.3); Red Blood Count 3.87 M/uL (4.20-5.40); White Blood Count 8.58 K/ul (4.8-10.8)
--- NOTE | 2024-04-23 11:37 | Electrocardiogram Report ---
Test Reason : Blood Pressure : */* mmHG Vent. Rate : 103 BPM Atrial Rate : * BPM P-R Int : * ms QRS Dur : 92 ms QT Int : 350 ms P-R-T Axes : * 73 -88 degrees QTcB Int : 458 ms Atrial fibrillation with rapid ventricular response Septal infarct , age undetermined Abnormal ECG When compared with ECG of 16-Apr-2024 09:10, Septal infarct is now Present T wave inversion less evident in Lateral leads Confirmed by Gregorio Koch ([id number]) on 04/23/2024 11:36:54 AM Referred By: Confirmed By: Gregorio Koch
[2024-04-23 11:45] LABS: Albumin Globulin Ratio 1.5 (0.9-2); Albumin Level 3.6 gm/dl (3.4-5.0); BUN Creatinine Ratio 23.8 (10-20); Bilirubin,Total 0.3 mg/dl (0.2-1.0); Calcium 8.9 mg/dl (8.6-10.3); Creatinine Clr Calc Pharmacy 32.9 ml/min; Globulin 2.4 gm/dl (2.5-4.0); Potassium 3.8 mmol/L (3.5-5.1)
[2024-04-23 11:58] LABS: Partial Thromboplastin Ratio 0.9; Partial Thromboplastin Time 25 Seconds (21-31); Prothrombin Time 10.4 Seconds (9.0-12.0)
--- NOTE | 2024-04-23 12:10 | XRay Report ---
XR chest 1V not portable HISTORY: 83 years-old Female hip pain/preop preoperative exam COMPARISON: 04/16/2024 TECHNIQUE: AP view of the chest FINDINGS: Cardiac silhouette is enlarged. Right hemidiaphragmatic elevation. No pneumothorax, pleural effusion or airspace consolidation. Suggestion of calcified hilar lymph nodes. Surgical clips project over the right upper quadrant abdomen and left axilla. IMPRESSION: Cardiomegaly without acute process. ACT 112: Negative or not required by law. The above report was generated using voice recognition software. It may contain grammatical, syntax o r spelling errors. Electronically signed by: Blaise Mccain M.D. 04/23/2024 12:08 PM
--- NOTE | 2024-04-23 12:16 | XRay Report ---
XR hip LT 2V w pelvis CLINICAL HISTORY: hip pain/preop COMPARISON: MRI of the left hip April 16, 2024. FINDINGS: Postoperative findings within the lumbar spine are partially imaged. There is an acute obl ique intertrochanteric fracture of the left femur. Fracture is displaced 1.2 cm. Degenerative changes at the symphysis pubis pubis are present. No additional fractures are identified on this exam. Parti al right femur is intact. IMPRESSION: Acute displaced intertrochanteric fracture of the left femur. ACT 112: Negative or not required by law. Electronically signed by: Norm Tineo M.D. 04/23/2024 12:14 PM
[2024-04-23] MEDS ORDERED: ONDANSETRON INJ 2 MG/ML 2 ML VIAL IV PRN ×2 (13:09→18:35)
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
--- NOTE | 2024-04-23 15:55 | Anesthesiology Consultation ---
Date of Service April 23, 2024 Assessment & Plan Chart Review Chart Review: Acceptable Risk for Surgery and Patient NOT seen in Pre Admission Testing Consults Requested none History Surgery Operation Date: 04/23/24 12:00 Proposed Procedures p Left Long Troch Nail - Peter Cavanaugh MD Height/Weight Height: 5 ft 3 in Weight: 86.3 kg Allergies Allergy/AdvReac Type Severity Reaction Status Date / Time NSAIDS (Non-Steroidal Allergy Severe RENAL Verified 04/14/24 10:18 Anti-Inflamma FAILURE adhesive Allergy Mild RASH Verified 04/14/24 10:18 latex Allergy Mild RASH Verified 04/14/24 10:18 procaine Allergy Mild prolonged Verified 04/14/24 10:18 effect amoxicillin AdvReac Intermediate Diarrhea Verified 04/14/24 10:18 orange AdvReac Intermediate "not Verified 04/14/24 10:18 supposed to take any citrus foods" orange juice AdvReac Intermediate "not Verified 04/14/24 10:18 supposed to take any citrus foods" pepper (genus Capsicum) AdvReac Intermediate "not Verified 04/14/24 10:18 supposed to take any due to an overactive bladder" sesame seed AdvReac Intermediate "not Verified 04/14/24 10:18 supposed to take any due to an overactive bladder" Medications Home Medications Medication Instructions Recorded Confirmed Last Taken [id number] 8 mg-folic 400 1 tab PO QDL 12/20/20 04/23/24 02/24/24 mcg-K 50 mcg-lutein 300 mcg tablet (Centrum Silver Women) clindamycin HCl 300 mg capsule 600 mg PO UD PRN prior to dental 05/18/21 04/23/24 Unknown procedure loratadine 10 mg tablet (Claritin) 10 mg PO QAM 04/29/23 04/23/24 03/08/24 09:50 omega-3 fatty acids 1,000 mg 2,000 mg PO QDL 04/29/23 04/23/24 02/24/24 capsule Saccharomyces boulardii 50 mg 50 mg PO BID 05/10/23 04/23/24 03/08/24 09:54 capsule xxagjbqlxvd-zje-kzxpciitk-vitC 1 cap PO QDL 05/10/23 04/23/24 02/24/24 capsule (Glucosamine Complex-MSM capsule) apixaban 5 mg tablet (Eliquis) 5 mg PO BID #180 tabs 05/20/23 04/23/24 03/05/24 09:16 acetaminophen 650 mg 650 mg PO UD PRN Pain 12/04/23 04/23/24 03/08/24 23:25 tablet,extended release (Tylenol Arthritis Pain) Cbd Cream 1 dose topical BID 12/25/23 04/23/24 03/08/24 potassium chloride 20 mEq 20 meq PO DAILY PRN when taking 12/25/23 04/23/24 Unknown tablet,extended release lasix simvastatin 20 mg tablet 20 mg PO HS 12/25/23 04/23/24 03/08/24 21:45 vit C 250 mg-vit E 90 mg-zinc 40 1 tab PO BID 12/25/23 04/23/24 02/24/24 mg-copper 1 zf-heiuwz-jjtkcz capsule (PreserVision AREDS-2) docusate sodium 50 mg/5 mL oral 50 mg PO DAILY PRN Constipation 12/31/23 04/23/24 03/07/24 liquid furosemide 40 mg tablet 40 mg PO DAILY PRN edema in feet 01/13/24 04/23/24 03/05/24 #90 tabs diclofenac sodium 1 % topical gel 4 g topical QID #100 grams 04/09/24 04/23/24 Unknown (Voltaren Arthritis Pain) losartan 50 mg-hydrochlorothiazide 1 tab PO QAM #90 tabs 04/09/24 04/23/24 Unknown 12.5 mg tablet tramadol 50 mg tablet 50 mg PO BID PRN pain #30 tabs 04/10/24 04/23/24 Unknown calcium 500 mg (as 1 tab PO QDL 04/16/24 04/23/24 Unknown carbonate)-vitamin D3 15 mcg (600 unit) tablet (Os-Glenn 500 + D3) calcium glycerophosphate 130 mg PO UD PRN When eating 04/16/24 04/23/24 Unknown problem food cyanocobalamin (vitamin B-12) 1,000 mcg PO QDL 04/16/24 04/23/24 Unknown 1,000 mcg tablet (Vitamin B-12) famotidine 40 mg tablet 40 mg PO QAM 04/16/24 04/23/24 Unknown fluticasone propionate 50 2 spray intranasal QAM 04/16/24 04/23/24 Unknown mcg/actuation nasal spray,suspension gabapentin 300 mg capsule See Rx Instructions .Route .COMPLEX 04/16/24 04/23/24 Unknown hydrocodone 5 mg-acetaminophen 325 1 tab PO BID PRN pain 04/16/24 04/23/24 Unknown mg tablet levothyroxine 100 mcg tablet 100 mcg PO DAILY 04/16/24 04/23/24 Unknown melatonin 5 mg tablet 5 mg PO HS PRN Sleep 04/16/24 04/23/24 Unknown metoprolol tartrate 50 mg tablet 150 mg (3 x 50 mg) PO BID #180 tabs 04/21/24 04/23/24 Unknown Active Medications Generic Name Dose Route Start Last Admin Trade Name Freq PRN Reason Stop Dose Admin Morphine Sulfate 2 mg 04/23/24 10:44 04/23/24 15:23 Morphine Sulfate 4 Mg/Ml 1 Ml Carp\\Vial IV 05/07/24 10:43 2 mg Q2H PRN Administration Severe Pain (Rating 7,8,9,10) Past Medical History Medical History Strain of left psoas muscle Hip pain, left History of transesophageal echocardiography (ULI) (04/2023) Closed fracture of right proximal humerus (01/15/23) fell out of bed Renal angiomyolipoma GERD (gastroesophageal reflux disease) Well controlled and stable Depression Malignant neoplasm of lower-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) Orthopnea ongoing for many years per patient; denies change or worsening Claustrophobia Difficult intravenous access Pulmonary hypertension NSTEMI (non-ST elevated myocardial infarction) Type II demand NSTEMI 04/2023 in the setting of new A-fib RVR Urinary frequency Osteopenia Lumbar stenosis Hypertension Dyslipidemia Lumbar back pain Degenerative spondylolisthesis Degenerative joint disease involving multiple joints Cardiomyopathy History of anxiety no meds currently Angiomyolipoma of both kidneys Allergic rhinitis History of cardioversion 04/2023 @ [facility] Atrial fibrillation diagnosed 04/2023--follows with Dr. Koch--had cardioversion 12/27/23--on eliquis/metoprolol Lumbar radiculopathy, right Duodenal ulcer hx GI bleeding hx of 2020 Osteoarthritis Overactive bladder Hypothyroidism LVH (left ventricular hypertrophy) follows with Dr. Koch Past Family History Family History Unknown Aortic aneurysm Other No family history of adverse response to anesthesia Past Surgical History Surgical History S/P lumbar fusion History of total right knee replacement (TKR) 01/2021 @ [facility] History of left knee replacement History of colonoscopy History of lumpectomy of left breast (02/22/17) Left partial mastectomy with SLNB 02/22/17 Dr. Vora History of cholecystectomy History of tonsillectomy and adenoidectomy History of breast biopsy Social History Smoking Status: Never smoker Do You Dip or Chew Tobacco: No Hx Alcohol Use: No Alcohol type: wine alcohol intake frequency: holidays/special occasions only Hx Substance Use: No substance use type: does not use Physical Exam Vital Signs Last Vital Signs Temp 36.5 C 04/23/24 10:16 Pulse 103 H 04/23/24 15:00 Resp 18 04/23/24 15:00 BP 112/91 04/23/24 15:00 Pulse Ox 96 04/23/24 15:00 O2 Del Method Room Air 04/23/24 15:00 Testing Laboratory Results 04/23/24 11:07 04/23/24 11:07 PT 10.4 Seconds (9.0-12.0) 04/23/24 11:07 INR 1.0 (0.9-1.1) 04/23/24 11:07 APTT 25 Seconds (21-31) 04/23/24 11:07 Electrocardiogram Date: 04/23/24 Atrial fibrillation with rapid ventricular response Septal infarct , age undetermined Echocardiogram Date: 10/28/23 EF: 65-70 LV Function: normal Other Testing Cardiac history notable for heart failure with mildly reduced EF while in A-fib with RVR 04/2023 for which underwent cardioversion. In sinus rhythm had recovery of LV function 10/2023. Remained in sinus rhythm until 12/2023 when presented acutely with shortness of breath/chest discomfort. Rehospitalized and cardioverted 12/27/2023, maintained on amiodarone. Following back surgery he had recurrent A-fib with RVR 02/2024 (amiodarone/metoprolol had been on hold preop). Extended hospitalization post back surgery and eventually underwent cardioversion prior to discharge on 03/18/2024. Recurrent AF on ECG 04/09/2024 despite amiodarone. Has been asymptomatic with current AF. Seen most recently by cardiology on 04/14. Amiodarone increased from 200 to 400 mg daily and continued on current Lopressor of 100 in the a.m., 50 in the p.m.
[2024-04-23] MEDS ORDERED: ONDANSETRON INJ 2 MG/ML 2 ML VIAL ONE (16:05)
[2024-04-23] MEDS ORDERED: DEXAMETHASONE SOD INJ 4 MG/ML VIAL ONE (16:05)
[2024-04-23] MEDS ORDERED: PROPOFOL IV EMULSION 10 MG/ML 20 ML VIAL IV ONE (16:05)
[2024-04-23] MEDS ORDERED: fentaNYL citrate PF 100 MCG/2 ML VIAL ONE (16:05)
[2024-04-23] MEDS ORDERED: LIDOCAINE 2% 2 ML VIAL/AMP(20MG/ML) INFIL ONE (16:05)
[2024-04-23] MEDS ORDERED: MIDAZOLAM HCL 1 MG/ML 2ML VIAL ONE (16:05)
[2024-04-23] MEDS: ceFAZolin 2000MG 2,000 MG/15 ML SYR IV ONE (17:30)
[2024-04-23] MEDS: TRANEXAMIC ACID / 0.7% NACL 1000MG/100ML BAG IV ONE (17:35)
[2024-04-23] MEDS: BUPIVACAINE/EPINEPHRINE 0.5% MPF 1:200,000 30 ML VIAL ONE (18:15)
[2024-04-23] MEDS ORDERED: PHENYLEPHRINE HCL 10 MG/ML VIAL ONE (18:17)
[2024-04-23] MEDS ORDERED: diphenhydrAMINE 50 MG/ML VIAL ONE (18:17)
[2024-04-23] MEDS ORDERED: SUGAMMADEX SODIUM 200 MG/2 ML VIAL IV ONE (18:33)
[2024-04-23] MEDS ORDERED: ePHEDrine sulfate 50 MG/ML AMP IV PRN (18:35)
[2024-04-23] MEDS ORDERED: PROMETHAZINE HCL 6.25 MG in SODIUM CHLORIDE 0.9% 50 ML IV PRN (18:35)
[2024-04-23] MEDS ORDERED: HYDROmorphone INJ 2 MG/ML SYR/VIAL IV PRN (18:35)
[2024-04-23] MEDS ORDERED: ATROPINE SULFATE 0.1 MG/ML 10ML SYR IV PRN (18:35)
--- NOTE | 2024-04-23 18:58 | Operative Report ---
PG Post Operative Report Pre & Post Diagnosis Operation Date: 04/23/24 12:00 Pre-Op Diagnosis: Closed left hip intertrochanteric femur fracture Post-Op Diagnosis: Closed left hip intertrochanteric femur fracture I identified the patient and participated in the time-out.: Yes Procedure Operation Date: 04/23/24 12:00 Actual Procedures p Left intertrochanteric femur fracture closed reduction and internal fixation with long trochanteric fixation nail (Left) - Peter Cavanaugh MD Surgeon Peter Cavanaugh MD Physics Technician None Estimated Blood Loss 100 Findings See Below Comminuted peritrochanteric fracture with subtrochanteric tension All [employer] implants: 11 mm/130 degree titanium cannulated trochanteric fixation nail of 400 mm length. 11.0 mm titanium helical blade of 100 mm length. Distal interlock screw measuring 50 mm. Specimens none Anesthesia Type MAC Spinal Regional Complications none Disposition Accompanied Patient To Recovery: No Disposition: Surgical ICU Indications 83-year-old female fell today onto her hip resulting immediate pain and inability to bear weight. She is brought to the emergency room where right intertrochanteric femur fracture was diagnosed. She had been n.p.o. throughout the day. We reviewed the diagnosis, prognosis and the recommended treatment for surgical stabilization as soon as medically ready. Anesthesia had evaluated her and deemed her acceptable for surgery today. Informed consent was documented at the bedside after discussion of the risks and benefits and alternatives with the patient and her daughter by phone. The informed consent was reviewed and confirmed the preoperative holding area to proceed. Description of Procedure On the day of surgery should be was greeted in the preoperative holding area and the informed consent was reviewed and confirmed. The surgical site was then identified by the patient and signed by myself. The patient was taken to the operating placed by the OR table and anesthesia was induced. The patient is then positioned on the fracture table. All brunilda prominences were well padded. The operative foot was placed in the fracture boot with abundant padding. The well leg was secured. We then positioned the lower extremities in a scissor fashion with a non-op leg flexed down to allow visualization with fluoroscopy which was confirmed before we prepped and draped. Surgical timeout was called and verified by all present. Antibiotics were infused, and equipment was available and functional. The procedure was initiated with a closed reduction maneuvers. Gentle in-line traction pulled the fracture out to length. The limb was then internally rotated to reduce the proximal femur. Flexion and adduction were used to a djust the reduction and allow access to the greater trochanter. We had adequate reduction prior to prepping and draping. The leg was then prepped and draped in usual sterile fashion. Surgical timeout was reconfirmed. We initiated the surgical internal fixation portion with finding the start point with the tip of the greater trochanter. Fluoroscopic guidance was used and a small poke hole was established. The start point was confirmed on fluoroscopy in AP and lateral planes and the pin was advanced using a mallet. An incision was made about the pin to allow access for the reamers. The pin was then advanced past the lesser trochanter, and its position was confirmed using AP and lateral fluoroscopy. Using the protective sleeve, the opening reamer was advanced under power with fluoroscopic guidance over the guidepin. The reduction wire was then advanced down the distal femur to the level of the superior pole of the patella. Measurement was taken from the tip of the trochanter down to the end of the guidewire, and the nail length was selected. We then began sequential reaming. We started with 12.5 and used fluoroscopy to guide our reaming. An 11 mm nail was loaded onto the jig and advanced manually down the canal, while ensuring maintenance of the reduction on fluoroscopy. We then tapped it down into place until we achieve the good position for our cephalo-medullary screw. The cannula was placed on the jig to allow positioning of the cephalo-medullary screw. The skin incision was made in the appropriate spot. The jig cannulas were then placed against the lateral cortex. The cephalo-medullary screw guidepin was advanced towards the femoral head. The center-center position was confirmed on fluoroscopy in AP and lateral planes. The length of the screw was measured off the guide. The helical blade screw was then opened on the back table and prepared on the screwdriver. The lateral cortical opening drill, followed by the triple drill reamer for the helical blade was advanced under fluoroscopic guidance. The helical blade was advanced over the guidepin to appropriate position. The helical blade was locked in rotation and then the traction was taken off. Fluoroscopy confirmed maintenance of reduction and adequate position of the implant. The compression sleeve was then advanced against the lateral femur to improve the trochanteric-shaft reduction and compress the intertrochanteric region fracture. Attention was then directed distally to perform the interlock screws in using perfect [place] technique. 1 interlock screw was placed with a 5 mm diameter. The length was measured using a depth gauge, with fluoroscopic guidance. This completed the fixation. This completed the fixation of the fracture. Fluoroscopy was used in both AP and lateral planes to evaluate the entirety of the fracture and implant. Reduction and implant positions were acceptable. The wounds were then thoroughly irrigated with bulb syringe and normal saline. The deep fascial layer was approximated with 0 Vicryl suture. The dermal layer was approximated using 2-0 Vicryl suture. The final skin closure was completed with maulik. Wounds were dressed with sterile Xeroform, sterile gauze, and foam tape over ABDs. The patient tolerated procedure well, awoke from anesthesia without complication, was extubated in the operating room, and transferred to the PACU in stable condition. Disposition: The patient be weightbearing as tolerated. Patient may resume her chronic Eliquis for acceptable. VTE prophylaxis. DVT prophylaxis should last 6 weeks. 24 hours of antibiotic prophylaxis should be continued. I attest to the content of the Intraoperative Record and any orders documented therein. Any exceptions are noted below.
--- NOTE | 2024-04-23 19:00 | Fluoroscopy Report ---
FL hip LT 2-3V CLINICAL HISTORY: L HIPacute fracture left proximal femur COMPARISON STUDY: Radiographs of same day FLUOROSCOPY TIME: 104.6 seconds FLUOROSCOPY IMAGES: 5 EXPOSURE DOSE: 23.14 mGy FINDINGS: Status post placement of intertrochanteric nail with medullary roque fixating the acute proxi mal left femoral fracture. There is improved near anatomic alignment. Expected postoperative soft tis samantha swelling with deep tissue air. Partially imaged knee arthroplasty. IMPRESSION: Fluoroscopic assistance as above. ACT 112: Negative or not required by law. Electronically signed by: Blaise Mccain M.D. 04/23/2024 6:59 PM
[2024-04-23] MEDS: fentaNYL citrate PF 100 MCG/2 ML VIAL IV PRN (19:15)
--- NOTE | 2024-04-23 19:35 | Anesthesiology Progress Note ---
Date of Service April 23, 2024 Anesthesia Post Procedure Vital Signs Vital Signs: Temp Pulse Pulse Resp BP BP Pulse Ox 04/23/24 19:20 118 H 15 118/83 97 04/23/24 19:10 105 H 16 128/71 100 04/23/24 19:00 94 H 20 119/89 100 04/23/24 18:50 36.8 C 92 H 18 145/70 H 98 04/23/24 16:15 36.6 C 105 H 20 127/90 95 04/23/24 15:00 103 H 18 112/91 96 04/23/24 15:00 96 04/23/24 13:12 92 H 15 109/86 93 04/23/24 13:03 96 H 20 94 04/23/24 12:09 104 H 12 97 04/23/24 11:03 85 20 119/51 L 92 04/23/24 10:48 94 H 18 119/51 L 92 04/23/24 10:36 94 H 15 94 04/23/24 10:24 84 04/23/24 10:16 04/23/24 10:16 04/23/24 10:16 36.5 C 90 20 114/79 92 O2 Del Method O2 Flow Rate 04/23/24 19:20 Oxymask 3 04/23/24 19:10 Oxymask 6 04/23/24 19:00 Oxymask 6 04/23/24 18:50 Oxymask 6 04/23/24 16:15 Room Air 04/23/24 15:00 Room Air 04/23/24 15:00 Room Air 04/23/24 13:12 04/23/24 13:03 04/23/24 12:09 04/23/24 11:03 04/23/24 10:48 04/23/24 10:36 04/23/24 10:24 04/23/24 10:16 Room Air 04/23/24 10:16 Room Air 04/23/24 10:16 Pain Intensity Left Hip: Pain Intensity: 8 Transfer of Care Handoff Completed per policy Notes Mental Status: alert / awake / arousable Patient Amnestic to Procedure: Yes Nausea / Vomiting: adequately controlled Pain: adequately controlled Airway Patency, RR, SpO2: stable & adequate BP & HR: stable & adequate Hydration State: stable & adequate Anesthetic Complications: no major complications apparent and Pt Satisfied with anesthetic care
[2024-04-23] MEDS ORDERED: NON-FORMULARY MEDICATION (Acetaminophen [Tylenol Arthritis Pain] 650 mg tablet extended re PO PRN (20:46)
[2024-04-23] MEDS ORDERED: [UNRECOGNIZED DRUG - OTHER] PO PRN (20:46)
[2024-04-23] MEDS ORDERED: NALOXONE HCL 0.4 MG/1 ML VIAL/CARP IV PRN (20:46)
[2024-04-23] MEDS ORDERED: MAGNESIUM HYDROXIDE SUSP 30 ML UDC PO PRN (20:46)
[2024-04-23] MEDS ORDERED: HYDROCODONE/ACETAMOPHEN 5/325MG TAB PO PRN (20:46)
[2024-04-23] MEDS: METOPROLOL TARTRATE 50 MG TAB PO SCH (22:00)
[2024-04-23] MEDS: SACCHAROMYCES BOULARDII PO SCH (22:00)
[2024-04-23] MEDS: SIMVASTATIN 20 MG TAB PO SCH (22:00)
--- NOTE | 2024-04-23 22:18 | XRay Report ---
LEFT FEMUR 2 VIEWS CLINICAL HISTORY: Postoperative examination. FINDINGS: Portable AP and crosstable lateral views of the left femur are compared to study performed earlier the same day 04/23/2024. The skeletal structures are osteopenic. There has been intertrochant holden and intramedullary nail fixation of an intertrochanteric fracture of the left proximal femur. Ne ar anatomic alignment is restored. A single cortical lag screw transfixes the distal end of the intra medullary nail. No new fracture is seen. Skin clips, soft tissue edema, and subcutaneous gas overlyin g the operative sites are expected postsurgical changes. The imaged left hemipelvis appears intact. F usion hardware is noted at the lumbosacral junction. A left knee arthroplasty is in near anatomic ali gnment. IMPRESSION: Expected postoperative findings status post open reduction and internal fixation of a lef t femoral fracture. See above. Electronically signed by: Holden Dougherty M.D. 04/23/2024 10:16 PM
[2024-04-24] MEDS: ceFAZolin 2000MG 2,000 MG/15 ML SYR IV SCH (00:42)
[2024-04-24 03:09] LABS: Appearance Urine Clear (Clear); Bacteria Urine Automated None Seen (None Seen); Bilirubin Urine Negative (Negative); Blood Urine 2+ (Negative); Color Urine Yellow; Epithelial Cell Urine Auto 0-2 /hpf (0-2); Glucose Urine UA Negative (Negative); Ketones Urine Negative (Negative); Leukocyte Esterase Urine Negative (Negative); Nitrite Urine Negative (Negative); Protein Urine 1+ (Negative); RBC Urine Automated >20 /hpf (0-2); Specific Gravity Urine 1.034 (1.000-1.030); Urobilinogen Urine Negative (Negative); WBC Urine Automated 0-5 /hpf (0-5)
[2024-04-24] MEDS: LEVOTHYROXINE SODIUM 100 MCG TABLET PO SCH (06:09)
[2024-04-24 06:28] LABS: Hematocrit (blood only) 28.6 % (37.0-47.0); Hemoglobin 9.1 g/dl (12.0-16.0); Mean Corpuscular Hemoglobin 27.6 pg (25.0-34.0); Mean Corpuscular Hgb Conc 31.8 g/dL (32.0-36.0); Mean Corpuscular Volume 86.7 fL (80.0-100.0); Mean Platelet Volume 10.5 fL (9.4-12.4); Platelet Count 227 K/uL (130-400); RDW Coefficient of Variation 14.9 % (11.5-14.5); RDW Standard Deviation 47.7 fL (36.4-46.3); White Blood Count 10.62 K/ul (4.8-10.8)
[2024-04-24 07:40] LABS: Basophils # (auto) 0.01 K/uL (0.00-0.20); Basophils % (auto) 0.1 %; Immature Granulocytes # (auto) 0.08 K/uL (0.01-0.20); Immature Granulocytes % (auto) 0.8 %; Lymphocytes # (auto) 0.42 K/uL (1.20-3.40); Monocytes # (auto) 0.53 K/uL (0.11-0.59); Neutrophils # (auto) 9.58 K/uL (1.40-6.50); Neutrophils % (auto) 90.1 %
[2024-04-24 07:50] LABS: Albumin Globulin Ratio 1.5 (0.9-2); Albumin Level 3.3 gm/dl (3.4-5.0); BUN Creatinine Ratio 25.2 (10-20); Bilirubin,Total 0.3 mg/dl (0.2-1.0); Calcium 8.6 mg/dl (8.6-10.3); Chol HDL Ratio 2.7 (0-5); Creatinine Clr Calc Pharmacy 33.7 ml/min; Globulin 2.2 gm/dl (2.5-4.0); Magnesium 2.3 mg/dl (1.7-2.4); Potassium 4.6 mmol/L (3.5-5.1); Total Protein 5.5 gm/dl (6.0-8.3)
[2024-04-24] MEDS: MoRPHine SULFATE 2 MG/ML CARP IV PRN (07:50)
[2024-04-24] MEDS: ACETAMINOPHEN 325 MG TAB PO PRN (07:50)
--- NOTE | 2024-04-24 07:52 | Orthopedic Progress Note ---
Date of Service April 24, 2024 Assessment & Plan (1) Closed intertrochanteric fracture of left hip: - Patient is postop day 1 from a left intertrochanteric hip fracture closed reduction and internal fixation. Did explain to the patient that her left knee pain is due to the long roque going close to her knee. This is something that we can keep an eye on over some time, however is expected after surgery such as this. Dressing check satisfactory. It should remain on until she is discharged from the hospital to keep the area clean. It may be changed if the dressing is saturated. I will see her back in 2 weeks for postop check. Pain control as well as medical management of other comorbidities as per the hospital team. Can restart her Eliquis today for DVT prophylaxis. Subjective Operation Date: 04/23/24 12:00 Actual Procedures p Left intertrochanteric femur fracture closed reduction and internal fixation with long trochanteric fixation nail (Left) - Peter Cavanaugh MD Patient is postop day 1 from a left intertrochanteric hip fracture closed reduction internal fixation with a long intramedullary roque. She is resting in her hospital bed today. States that her hip is achy but the posterior aspect of her left knee is more painful. Other than that, she states she is doing well. No other questions or concerns today. No overnight events. Review of Systems All systems reviewed & are unremarkable except as noted in HPI & below. Physical Exam General: Alert and oriented. In no acute distress today. She is resting comfortably in her hospital bed. We did try to move her ice pack around to a more comfortable area for her, however she is painful all around the knee as well as in the hip. Her dressing check is satisfactory. No saturation of the dressings. Sensation intact. Distal pulses palpated. Capillary fill less than 3 seconds. Results & Data Results & Data Laboratory Results . Diagnostic Findings . PG Care Time/CCT Total # of Minutes Spent Total Time Spent with Patient: Total time spent is greater than 50% in coordination of care (as documented) at patient's floor/unit and/or counseling patient: Coding Level of Care Code 98018 Post Operative Follow-Up Diagnoses Closed intertrochanteric fracture of left hip S72.145A Encounter type: initial encounter Fracture alignment: nondisplaced (1) Closed intertrochanteric fracture of left hip Encounter type: initial encounter Fracture alignment: nondisplaced Qualified Code(s): S72.145A - Nondisplaced intertrochanteric fracture of left femur, initial encounter for closed fracture
--- NOTE | 2024-04-24 09:22 | Hospitalist Progress Note ---
Date of Service April 24, 2024 Assessment & Plan (1) Closed left hip fracture: Plan: Presented with left hip pain after ground-level mechanical fall at her assisted living facility. -X-ray on arrival showed acute displaced intertrochanteric fracture of the left femur -Ortho consulted > Status post left intertrochanteric femur fracture closed reduction and internal fixation on 04/23/[address] Cavanaugh > Outpatient follow-up with ortho 2 weeks postop -Acute blood loss anemia secondary to surgical intervention. Hgb stable at 9.1, no signs of active bleeding, no indication for blood transfusion at this time -Eliquis to resume a.m. of 04/25 -Pain regimen: Scheduled Tylenol 1000 mg Q8H, [place] BID PRN for pain, morphine 1 mg Q2H PRN for moderate pain, morphine 2 mg Q2H PRN for severe pain -Fall precautions -PT/OT recommending SNF rehab (2) Persistent atrial fibrillation: Plan: Chronic with variable rate control Continue metoprolol Eliquis to resume a.m. 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 Acuña (5) Hypothyroidism: Plan: Continue Synthroid 100 mcg daily Plan Reconciled home medications Reviewed PT eval Consider vitamin D supplementation CODE STATUS: Full code Admission and Anticipated Discharge Date Admission Date: April 23, 2024 Subjective Patient seen and evaluated at bedside chair. She reports that she worked with PT earlier which made her leg sore. She reports that her pain is decently controlled. Reassured patient that some level of discomfort is to be expected after extensive surgery like this and will hopefully begin subsiding over next few days. She reports her appetite is good, has passed gas postop, sleeping well. No additional complaints or concerns at this time. Physical Exam Physical Exam: General: No acute distress, nondiaphoretic, well-developed, well-nourished. Skin: The skin was without rashes, erythema, edema, or bruising. Cardiac: Irregularly irregular, rates in the 90s, without murmurs gallops or rubs. Pulm: Clear to auscultation bilaterally without wheezes, rales or rhonchi. No respiratory distress. 100% on room air. Abdominal: Soft, nontender, nondistended. Bowel sounds present. Neuro: A&O x3. No focal neurological deficits. Extremities: Dressing to left lower extremity clean, dry, intact. Sensation intact. Distal pulses palpated. Cap refill <3 seconds. Dorsiflexion and plantarflexion appropriate. Results & Data Results & Data Vital Signs (Past 12 Hours) Vital Signs Temp Pulse Pulse Resp BP BP Pulse Ox 04/24/24 08:50 98.6 F 94 H 19 81/53 L 88/54 L 100 04/24/24 03:20 98.1 F 112 H 18 101/56 L 93 04/24/24 00:46 98.1 F 100 H 18 99/52 L 93 04/23/24 23:12 95 H 04/23/24 21:45 O2 Del Method O2 Flow Rate 04/24/24 08:50 Room Air 04/24/24 03:20 Room Air 04/24/24 00:46 Room Air 04/23/24 23:12 04/23/24 21:45 Nasal Cannula 2 Laboratory Results Reviewed CBC Reviewed CMP Reviewed lipid panel Reviewed UA PG Care Time/CCT Total # of Minutes Spent Total Time Spent with Patient: Total time spent is greater than 50% in coordination of care (as documented) at patient's floor/unit and/or counseling patient: Coding Level of Care Code 06007 SUB INP/OBS CARE 2/35MIN Diagnoses Closed left hip fracture S72.002A Persistent atrial fibrillation I48.19 Heart failure with recovered ejection fraction (HFrecEF) I50.32 History of lumbar fusion Z98.1 Hypothyroidism E03.9
[2024-04-24 09:34] LABS: Prealbumin 21.3 mg/dl (20-40)
[2024-04-24] MEDS: LORATADINE 10 MG TAB PO SCH (09:54)
[2024-04-24] MEDS: LOSARTAN/HCTZ 50/12.5MG TAB PO SCH (09:54)
[2024-04-24] MEDS: CEROVITE ADV FORMULA TAB PO SCH (09:54)
[2024-04-24] MEDS: FAMOTIDINE 40 MG TABLET PO SCH (09:54)
[2024-04-24] MEDS: FLUTICASONE PROPIONATE NA SPR 16 GM BTL SCH (09:56)
[2024-04-24] MEDS: SACCHAROMYCES BOULARDII 250 MG CAP PO SCH (10:50)
[2024-04-24] MEDS: GABAPENTIN 300 MG CAP PO SCH (10:50)
[2024-04-24] MEDS: CYANOCOBALAMIN (B-12) 500 MCG TABLET PO SCH (10:50)
[2024-04-24] MEDS: CALCIUM CARBONATE 1250MG TAB PO SCH (10:51)
[2024-04-24] MEDS: DICLOFENAC SOD 1% GEL 100 GM TUBE EXT SCH (21:05)
[2024-04-25] MEDS: MELATONIN 3 MG TAB PO PRN (01:15)
[2024-04-25 08:17] LABS: Hemoglobin 9.1 g/dl (12.0-16.0); Mean Corpuscular Hgb Conc 30.3 g/dL (32.0-36.0); RDW Coefficient of Variation 15.4 % (11.5-14.5); RDW Standard Deviation 50.4 fL (36.4-46.3); Red Blood Count 3.37 M/uL (4.20-5.40); White Blood Count 9.94 K/ul (4.8-10.8)
[2024-04-25 08:20] LABS: BUN Creatinine Ratio 26.9 (10-20); Calcium 8.9 mg/dl (8.6-10.3); Creatinine Clr Calc Pharmacy 29.4 ml/min; Potassium 4.6 mmol/L (3.5-5.1)
--- NOTE | 2024-04-25 08:41 | Hospitalist Progress Note ---
Date of Service April 25, 2024 Assessment & Plan (1) Closed left hip fracture: Plan: Presented with left hip pain after ground-level mechanical fall at her assisted living facility. -X-ray on arrival showed acute displaced intertrochanteric fracture of the left femur -Ortho consulted > Status post left intertrochanteric femur fracture closed reduction and internal fixation on 04/23/[address] Cavanaugh > Outpatient follow-up with ortho 2 weeks postop -Acute blood loss anemia secondary to surgical intervention. Hgb stable at 9.1, no signs of active bleeding, no indication for blood transfusion at this time -Eliquis to resume a.m. 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 Acuña (5) Hypothyroidism: Plan: Continue Synthroid 100 mcg daily Plan Ordered digoxin x 2 Ordered IV fluid x 1 Discontinued morphine Ordered oxycodone Consider vitamin D supplementation VTE PPx: Eliquis CODE STATUS: Full code Admission and Anticipated Discharge Date Admission Date: April 23, 2024 Subjective Patient seen and evaluated at bedside this morning. She was quite sedated. She was oriented to person, place, year, but not event. She was able to follow commands. Neuro exam was normal. Suspect sedation is secondary to morphine and melatonin overnight. She is in A fib with RVR. Will give digoxin x1 now and again at 1600. If HR remains uncontrolled, consider cardiology consult. Mag 2.3 yesterday. Cr is elevated and trending upward, will give 500 cc fluid now. Reevaluated the patient again in the afternoon. Much more awake and alert at this time. Sitting in bedside chair. Reports some disappointment and frustration that she is not at her baseline activity level. Reminded patient that this is to be expected after the surgery she had. Her heart rate is still elevated, but RN was just about to give morning medications so we will continue to monitor heart rate throughout afternoon. Physical Exam Physical Exam: General: No acute distress, nondiaphoretic, well-developed, well-nourished. Skin: The skin was without rashes, erythema, edema, or bruising. Cardiac: Irregularly irregular, rates in the 120s, without murmurs gallops or rubs. Pulm: Clear to auscultation bilaterally without wheezes, rales or rhonchi. No respiratory distress. 94% on room air. Abdominal: Soft, nontender, nondistended. Bowel sounds present. Neuro: A&O x3. No focal neurological deficits. Extremities: Dressing to left lower extremity clean, dry, intact. Sensation intact. Distal pulses palpated. Cap refill <3 seconds. Dorsiflexion and plantarflexion appropriate. Results & Data Results & Data Vital Signs (Past 12 Hours) Vital Signs Temp Pulse Pulse Resp BP BP Pulse Ox 04/25/24 08:14 97.7 F 124 H 12 106/69 94 04/25/24 06:41 129 H 04/25/24 03:00 98.4 F 66 16 99/56 L 97 04/25/24 01:01 101 H 04/24/24 23:23 97.9 F 85 20 105/63 98 O2 Del Method 04/25/24 08:14 Room Air 04/25/24 06:41 04/25/24 03:00 Room Air 04/25/24 01:01 04/24/24 23:23 Room Air Laboratory Results Reviewed CBC Reviewed BMP PG Care Time/CCT Total # of Minutes Spent Total Time Spent with Patient: Total time spent is greater than 50% in coordination of care (as documented) at patient's floor/unit and/or counseling patient: Coding Level of Care Code 47432 SUB INP/OBS CARE 3/50MIN Diagnoses Closed left hip fracture S72.002A Persistent atrial fibrillation I48.19 Heart failure with recovered ejection fraction (HFrecEF) I50.32 History of lumbar fusion Z98.1 Hypothyroidism E03.9
[2024-04-25 08:43] LABS: Mean Platelet Volume 11.4 fL (9.4-12.4); Platelet Count 113 K/uL (130-400); Platelet Estimate Normal (Normal)
[2024-04-25] MEDS: SODIUM CHLORIDE 0.9% 500 ML IV SCH (09:19)
[2024-04-25] MEDS: DIGOXIN 250 MCG in SYRINGE 9 ML IV STA (09:19)
[2024-04-25] MEDS: APIXABAN 5 MG TABLET PO SCH (12:03)
[2024-04-25] MEDS: DIGOXIN 250 MCG in SYRINGE 9 ML IV SCH (16:54)
[2024-04-25] MEDS: oxyCODONE HCL IR 5 MG TAB (IMMEDIATE RELEASE) PO PRN (18:17)
[2024-04-25] MEDS: POLYETHYLENE (MIRALAX) 17 GM PACK PO SCH (21:04)
[2024-04-26 09:23] LABS: Hematocrit (blood only) 25.6 % (37.0-47.0); Hemoglobin 8.1 g/dl (12.0-16.0); Mean Corpuscular Hemoglobin 27.6 pg (25.0-34.0); Mean Corpuscular Hgb Conc 31.6 g/dL (32.0-36.0); Mean Corpuscular Volume 87.1 fL (80.0-100.0); Mean Platelet Volume 10.4 fL (9.4-12.4); Platelet Count 179 K/uL (130-400); RDW Coefficient of Variation 15.4 % (11.5-14.5); RDW Standard Deviation 48.8 fL (36.4-46.3); Red Blood Count 2.94 M/uL (4.20-5.40); White Blood Count 7.41 K/ul (4.8-10.8)
[2024-04-26 09:36] LABS: BUN Creatinine Ratio 25.8 (10-20); Calcium 8.6 mg/dl (8.6-10.3); Creatinine Clr Calc Pharmacy 32.9 ml/min; Potassium 4.3 mmol/L (3.5-5.1)
--- NOTE | 2024-04-26 16:30 | Hospitalist Progress Note ---
Date of Service April 26, 2024 Assessment & Plan (1) Closed left hip fracture: Plan: Presented with left hip pain after ground-level mechanical fall at her assisted living facility. -X-ray on arrival showed acute displaced intertrochanteric fracture of the left femur -Ortho consulted > Status post left intertrochanteric femur fracture closed reduction and internal fixation on 04/23/[address] Cavanaugh > Outpatient follow-up with ortho 2 weeks postop -Acute blood loss anemia secondary to surgical intervention. Hgb stable at 8.1, no signs of active bleeding, no indication for blood transfusion at this time -Eliquis resumed 04/25 -Pain regimen: Scheduled Tylenol 1000 mg Q8H, oxycodone 5 mg Q6H PRN for moderate-severe pain -Vit D low-normal at 30.2 -- on Vit D supplement at home, continue -Fall precautions -PT/OT recommending SNF rehab --> plan for discharge to [facility] when medically ready (2) Persistent atrial fibrillation: Plan: Chronic with variable rate control - Continue metoprolol, Eliquis - A fib with RVR, rates in 120s on 04/25 -- Ordered digoxin 250 mcg x2 doses - HR returned to baseline of 90s-100s - If HR becomes significantly elevated, consider cardiology consult (3) 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 Acuña (5) Hypothyroidism: Plan: Continue Synthroid 100 mcg daily Plan VTE PPx: Eliquis CODE STATUS: Full code Admission and Anticipated Discharge Date Admission Date: April 23, 2024 Supervising Physician Co-Signing Physician Notes chart reviewed and case d/w S Gross PAC, as above Subjective Patient seen and evaluated in bedside chair. She reports "I feel so confused today." She is pleasantly confused and redirectable. She continues to have quite some difficulty and pain with ambulation/transfers. She denies any heart palpitations, chest pain, shortness of breath, lightheadedness, dizziness. No additional complaints or concerns at this time. Physical Exam Physical Exam: General: No acute distress, nondiaphoretic, well-developed, well-nourished. Skin: The skin was without rashes, erythema, edema, or bruising. Cardiac: Irregularly irregular, rates in the 90s-100s, without murmurs gallops or rubs. Pulm: Clear to auscultation bilaterally without wheezes, rales or rhonchi. No respiratory distress. 95% on room air. Abdominal: Soft, nontender, nondistended. Bowel sounds present. Neuro: A&O x2 (person, place; not time/event). No focal neurological deficits. Extremities: Dressing to left lower extremity clean, dry, intact. Sensation intact. Distal pulses palpated. Cap refill <3 seconds. Dorsiflexion and plantarflexion appropriate. Results & Data Results & Data Vital Signs (Past 12 Hours) Vital Signs Temp Pulse Pulse Resp BP Pulse Ox O2 Del Method 04/26/24 15:24 97.9 F 109 H 18 112/49 L 95 Room Air 04/26/24 11:28 97.7 F 110 H 18 102/67 93 Room Air 04/26/24 08:00 116 H 04/26/24 08:00 Room Air 04/26/24 07:39 98.4 F 108 H 18 128/83 95 Room Air Laboratory Results Reviewed CBC Reviewed BMP PG Care Time/CCT Total # of Minutes Spent Total Time Spent with Patient: Total time spent is greater than 50% in coordination of care (as documented) at patient's floor/unit and/or counseling patient: Coding Level of Care Code 48330 SUB INP/OBS CARE 2/35MIN Diagnoses Closed left hip fracture S72.002A Persistent atrial fibrillation I48.19 Heart failure with recovered ejection fraction (HFrecEF) I50.32 History of lumbar fusion Z98.1 Hypothyroidism E03.9
[2024-04-26] MEDS: DOCUSATE SODIUM SYRUP 100 MG/10 ML UDC PO PRN (16:40)
[2024-04-26] MEDS: bisacodyL 10 MG SUPP PR PRN (16:58)
[2024-04-27 08:21] LABS: Hematocrit (blood only) 25.1 % (37.0-47.0); Hemoglobin 7.7 g/dl (12.0-16.0)
[2024-04-27] MEDS ORDERED: SODIUM CHLORIDE 0.9% 250 ML IV PRN (10:12)
[2024-04-27] MEDS: ACETAMINOPHEN 325 MG TAB PO ONE (12:36)
--- NOTE | 2024-04-27 13:44 | Hospitalist Progress Note ---
Date of Service April 27, 2024 Assessment & Plan (1) Closed left hip fracture: Plan: Presented with left hip pain after ground-level mechanical fall at her assisted living facility. - X-ray on arrival showed acute displaced intertrochanteric fracture of the left femur - Ortho consulted > Status post left intertrochanteric femur fracture closed reduction and internal fixation on 04/23/[address] Cavanaugh > Outpatient follow-up with ortho 2 weeks postop - Acute blood loss anemia secondary to surgical intervention. > Hgb continued to decrease and patient now symptomatic with increased fatigue and HR; hgb 7.7 on 04/27 > Consented for blood transfusion. Transfused 1 unit PRBC on 04/27 > Repeat H&H post-transfusion, pending > Monitor AM CBC - Positive Hemeoccult stool study 04/27 - per RN, BM had small amount of blood noted, but was brown > Started Protonix BID and Carafate QID > Downgraded to full liquid diet - Eliquis initially resumed 04/25; however, held on 04/27 due to increased drainage from dressing site and Hemoccult positive stool study > If there is continued drainage around dressing site, contact ortho > Eliquis does take 48 hours to be fully excreted and risk of VTE in the next 1-2 days is pretty low fortunately > Will continue to monitor hemoglobin over next couple days on when to resume Eliquis - Informed ortho of the blood transfusion and unclear if bleeding is from her surgery or occult GI bleeding - Pain regimen: Scheduled Tylenol 1000 mg Q8H, oxycodone 5 mg Q6H PRN for moderate-severe pain - Vit D low-normal at 30.2 -- on Vit D supplement at home, continue - Fall precautions - PT/OT recommending SNF rehab --> plan for discharge to [facility] when medically ready (2) Persistent atrial fibrillation: Plan: Chronic with variable rate control - Continue metoprolol, Eliquis - A fib with RVR, rates in 120s on 04/25 -- Ordered digoxin 250 mcg x2 doses - Suspect increased rates in 110s are secondary to acute blood loss anemia requiring blood transfusion - Will monitor HRs after blood transfusion, but if HR continues to remain signi ficantly elevated, consider cardiology consult (3) 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 Acuña (5) Hypothyroidism: Plan: Continue Synthroid 100 mcg daily Plan Updated daughter at bedside Consented patient for blood transfusion Ordered 1 unit PRBC to be transfused Ordered Hemoccult stool study Started Protonix and Carafate Placed Eliquis on hold Downgraded to full liquid diet Informed Ortho of blood transfusion, increased drainage from incision, and heme positive stool VTE PPx: Eliquis held, SCDs CODE STATUS: Full code Admission and Anticipated Discharge Date Admission Date: April 23, 2024 Supervising Physician Co-Signing Physician Notes Attending Attestation - Chart reviewed, care plan d/w ANA Mishra. I agree w/ the feldman components of her documentation. A.fib - patient required cardioversion by cardiology during her 03/2024 hospitalization (lumbar spine surgery) for refractory a.fib. Patient again with rapid a.fib unresponsive thus far to digoxin + high-dose metoprolol. Consider cardiology consultation for the a.fib. Acute blood loss anemia - 2nd to left hip fracture s/p ORIF +/- GI bleeding given heme+ stool. Agree with Tx of PRBCs today given Hb<8. Remains to be seen if transfusion will help her a.fib rate control. Hold Eliquis for now given the heme+ stool and her anemia. Appreciate orthopedic assistance for recent left hip fracture --- s/p ORIF. Jason Angela MD Subjective Patient seen and evaluated at bedside with daughter present. She reports that she is very fatigued today. Most subjective information obtained via daughter and RN as patient is only oriented to self at this time. She is pleasantly con fused. She has some pink-tinged urine, suspect from pulling on her Garzon catheter. No reported hematochezia, melena, hematemesis, or hemoptysis - but will check Hemoccult stool study with next BM. She had increased drainage of her left hip dressing overnight. Dressing has remained clean and dry so far today. Discussed with patient and daughter that her fatigue and elevated heart rate are likely due to acute blood loss anemia from surgery. Consented patient for blood transfusion. Also discussed with daughter that patient's decreased mentation is likely due to acute delirium. Explained delirium process and associated symptoms. All questions and concerns answered/addressed. No additional complaints at this time. Physical Exam Physical Exam: General: No acute distress, nondiaphoretic, well-developed, well-nourished. Skin: The skin was without rashes, erythema, edema, or bruising. Cardiac: Irregularly irregular, rates in the 110s-120s, without murmurs gallops or rubs. Pulm: Clear to auscultation bilaterally without wheezes, rales or rhonchi. No respiratory distress. 95% on room air. Abdominal: Soft, nontender, nondistended. Bowel sounds present. : [place]-tinged urine noted in Garzon bag, no blood clots noted. Neuro: A&O x1 (person only). No focal neurological deficits. Extremities: Dressing to left lower extremity clean, dry, intact. Sensation intact. Distal pulses palpated. Cap refill <3 seconds. Dorsiflexion and plantarflexion appropriate. Results & Data Results & Data Vital Signs (Past 12 Hours) Vital Signs Temp Pulse Pulse Resp BP BP BP 04/27/24 13:17 98.1 F 118 H 16 115/74 04/27/24 13:00 98.2 F 122 H 19 103/71 04/27/24 11:23 99.1 F 125 H 17 98/66 L 04/27/24 09:30 04/27/24 08:01 114 H 04/27/24 07:30 99.3 F 125 H 19 116/69 04/27/24 03:43 98.4 F 116 H 16 117/75 Pulse Ox O2 Del Method 04/27/24 13:17 95 04/27/24 13:00 94 04/27/24 11:23 92 Room Air 04/27/24 09:30 Room Air 04/27/24 08:01 04/27/24 07:30 96 Room Air 04/27/24 03:43 93 Room Air Laboratory Results Reviewed H&H Reviewed blood bank tests PG Care Time/CCT Total # of Minutes Spent Total Time Spent with Patient: Total time spent is greater than 50% in coordination of care (as documented) at patient's floor/unit and/or counseling patient: Coding Level of Care Code 69357 SUB INP/OBS CARE 3/50MIN Diagnoses Closed left hip fracture S72.002A Persistent atrial fibrillation I48.19 Heart failure with recovered ejection fraction (HFrecEF) I50.32 History of lumbar fusion Z98.1 Hypothyroidism E03.9
[2024-04-27 18:24] LABS: Hematocrit (blood only) 31.9 % (37.0-47.0); Hemoglobin 10.3 g/dl (12.0-16.0)
--- NOTE | 2024-04-27 19:30 | Orthopedic Progress Note ---
Date of Service April 27, 2024 Assessment & Plan (1) Closed intertrochanteric fracture of left hip: POD4 IMN for left intertrochanteric fracture. Making expected progress. - WBAT and ROMAT. Continue to mobilize as able - Chronic eliquis for VTE ppx - Continue at least daily dressing changes with hygeine - prefer light dressing until maulik removed. Serous drainage ok for now. Will monitor. - Will continue to follow - tigertext myself or Maribel Harmon PA-C for orthopedic questions Dispo: OK for transition to next level of care from orthopedic perspective Subjective Reports pain is tolerable but much worse when transferring. Was able to take a few steps. Believes she is making progress. Drainage noted at incision sites. Review of Systems All systems reviewed & are unremarkable except as noted in HPI & below. Physical Exam LLE: dressing peeled down. Wounds are well approximated without erythema. There is some serious spotting on the fresh dressing. Thigh soft and compressible. No knee effusion. Constitutional WD/WN, vitals as above no acute distress and not intoxicated appearing Respiratory normal respiratory effort; no labored breathing Cardiovascular Extremities: normal capillary refill Results & Data Results & Data Laboratory Results H & H 04/23/24 04/24/24 04/25/24 Range/Units 11:07 06:08 07:45 Hgb 10.5 L 9.1 L 9.1 L (12.0-16.0) g/dl Hct 34.3 L 28.6 L 30.0 L (37.0-47.0) % 04/26/24 04/27/24 04/27/24 Range/Units 09:09 08:00 17:42 Hgb 8.1 L 7.7 L 10.3 L (12.0-16.0) g/dl Hct 25.6 L 25.1 L 31.9 L (37.0-47.0) % Coagulation 04/23/24 Range/Units 11:07 INR 1.0 (0.9-1.1) Diagnostic Findings . PG Care Time/CCT Total # of Minutes Spent Total Time Spent with Patient: Total time spent is greater than 50% in coordination of care (as documented) at patient's floor/unit and/or counseling patient: Coding Level of Care Code 70914 Post Operative Follow-Up Diagnoses Closed intertrochanteric fracture of left hip S72.145A Encounter type: initial encounter Fracture alignment: nondisplaced (1) Closed intertrochanteric fracture of left hip Encounter type: initial encounter Fracture alignment: nondisplaced Qualified Code(s): S72.145A - Nondisplaced intertrochanteric fracture of left femur, initial encounter for closed fracture
[2024-04-27] MEDS: PANTOprazole 40 MG TAB PO SCH (20:13)
[2024-04-27] MEDS: SUCRALFATE 1 GM TAB PO SCH (20:13)
[2024-04-28 06:38] LABS: Hematocrit (blood only) 27.5 % (37.0-47.0); Hemoglobin 8.8 g/dl (12.0-16.0); Mean Corpuscular Hemoglobin 27.3 pg (25.0-34.0); Mean Corpuscular Volume 85.4 fL (80.0-100.0); Mean Platelet Volume 10.4 fL (9.4-12.4); Platelet Count 189 K/uL (130-400); RDW Coefficient of Variation 15.4 % (11.5-14.5); RDW Standard Deviation 48.1 fL (36.4-46.3); Red Blood Count 3.22 M/uL (4.20-5.40); White Blood Count 7.41 K/ul (4.8-10.8)
[2024-04-28 06:52] LABS: Calcium 8.5 mg/dl (8.6-10.3); Creatinine Clr Calc Pharmacy 38.3 ml/min; Potassium 4.1 mmol/L (3.5-5.1)
[2024-04-28] MEDS: POTASSIUM CHLORIDE CRTAB 20 MEQ TABCR PO PRN (07:59)
--- NOTE | 2024-04-28 10:41 | Hospitalist Progress Note ---
<Statement entered by Clarissa Chong MD - 04/28/24 17:12> I have reviewed vital signs, chart notes, labs and imaging. I have also discussed the management of the patient with the RENETTA and I agree with the exam findings documented in the history and physical examination and the documented assessment and plan unless otherwise stated below. Brown stool with small amount of blood visible suggestive of hemorrhoidal bleeding - continue bowel regimen consider resumption of Xarelto in 24 to 48 hours, depending on clinical course and hemoglobin A-fib with ongoing difficult rate control and marginal blood pressures, consulted cardiology Date of Service April 28, 2024 Assessment & Plan (1) Closed left hip fracture: Plan: Presented with left hip pain after ground-level mechanical fall at her assisted living facility. - X-ray on arrival showed acute displaced intertrochanteric fracture of the left femur; Age-related osteoporosis with current pathological fracture, left femur - Ortho consulted > Status post left intertrochanteric femur fracture closed reduction and internal fixation on 04/23/[address] Cavanaugh > Outpatient follow-up with ortho 2 weeks postop - Acute blood loss anemia secondary to surgical intervention. > Hgb continued to decrease and patient now symptomatic with increased fatigue and HR; hgb 7.7 on 04/27 > Consented for blood transfusion. Transfused 1 unit PRBC on 04/27 > Hgb augmented appropriately post-transfusion, stable at 8.8 - Positive Hemeoccult stool study 04/27 - per RN, BM had small amount of blood noted, but was brown > Continue Protonix BID and Carafate QID > Downgraded to full liquid diet - Eliquis initially resumed 04/25; however, held on 04/27 due to increased drainage from dressing site and Hemoccult positive stool study > Eliquis does take 48 hours to be fully excreted and risk of VTE in the next 1-2 days is pretty low fortunately > Will continue to monitor hemoglobin over next couple days on when to resume Eliquis - Informed ortho of the blood transfusion and unclear if bleeding is from her surgery or occult GI bleeding - Pain regimen: Scheduled Tylenol 1000 mg Q8H, oxycodone 5 mg Q6H PRN for moderate-severe pain - Vit D low-normal at 30.2 -- on Vit D supplement at home, continue - Fall precautions - PT/OT recommending SNF rehab --> plan for discharge to [facility] when medically ready (2) Persistent atrial fibrillation: Plan: Chronic with variable rate control - Continue metoprolol, Eliquis - A fib with RVR, rates in 120s on 04/25 -- s/p digoxin 250 mcg x2 doses - Suspect increased rates are at least in part due to acute blood loss anemia requiring blood transfusion - Variable rate control post-transfusion, with rates ranging from 100-120s - Cardiology consulted - Patient has required multiple cardioversions in the past (3) 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 Acuña (5) Hypothyroidism: Plan: Continue Synthroid 100 mcg daily Plan Updated daughter at bedside Consulted cardiology Advanced diet VTE PPx: Eliquis held, SCDs CODE STATUS: Full code Admission and Anticipated Discharge Date Admission Date: April 23, 2024 Subjective Patient seen and evaluated at bedside with daughter present. She is much more alert and oriented today. She had just finished working with PT when I visited, and reported increased pain; RN to give pain meds. We discussed that her hgb augmented appropriately, but her Hemeoccult stool study was positive so unclear if her bleeding is from her surgery or GI source. All questions were addressed and answered. Patient denies palpitations, chest pain, shortness of breath, dizziness. She notes that she has more energy today. No additional complaints or concerns at this time. Physical Exam Physical Exam: General: No acute distress, nondiaphoretic, well-developed, well-nourished. Skin: The skin was without rashes, erythema, edema, or bruising. Cardiac: Irregularly irregular, rates in the 110s-120s, without murmurs gallops or rubs. Pulm: Clear to auscultation bilaterally without wheezes, rales or rhonchi. No respiratory distress. 96% on room air. Abdominal: Soft, nontender, nondistended. Bowel sounds present. : [place]-tinged urine noted in Garzon bag, no blood clots noted. Neuro: A&O x4. No focal neurological deficits. Extremities: Dressing to left lower extremity clean, dry, intact. Sensation intact. Distal pulses palpated. Cap refill <3 seconds. Dorsiflexion and plantarflexion appropriate. Results & Data Results & Data Vital Signs (Past 12 Hours) Vital Signs Temp Pulse Pulse Resp BP Pulse Ox O2 Del Method 04/28/24 09:34 108 H 04/28/24 07:22 98.2 F 103 H 16 113/82 96 Room Air 04/28/24 02:45 97.2 F L 115 H 18 108/77 96 Room Air 04/27/24 23:00 116 H 04/27/24 22:42 97.2 F L 120 H 18 113/74 96 Room Air Laboratory Results Reviewed CBC Reviewed BMP PG Care Time/CCT Total # of Minutes Spent Total Time Spent with Patient: Total time spent is greater than 50% in coordination of care (as documented) at patient's floor/unit and/or counseling patient: Coding Level of Care Code 03095 SUB INP/OBS CARE 3/50MIN Diagnoses Closed left hip fracture S72.002A Persistent atrial fibrillation I48.19 Heart failure with recovered ejection fraction (HFrecEF) I50.32 History of lumbar fusion Z98.1 Hypothyroidism E03.9
[2024-04-29 06:43] LABS: Hemoglobin 8.7 g/dl (12.0-16.0); Mean Corpuscular Hemoglobin 27.4 pg (25.0-34.0); Mean Corpuscular Hgb Conc 32.2 g/dL (32.0-36.0); Mean Corpuscular Volume 85.2 fL (80.0-100.0); Mean Platelet Volume 10.5 fL (9.4-12.4); Platelet Count 202 K/uL (130-400); RDW Coefficient of Variation 15.4 % (11.5-14.5); RDW Standard Deviation 47.7 fL (36.4-46.3); Red Blood Count 3.17 M/uL (4.20-5.40); White Blood Count 7.27 K/ul (4.8-10.8)
[2024-04-29] MEDS: DIGOXIN 250 MCG in SYRINGE 9 ML IV STA ×2 (12:26→17:16)
--- NOTE | 2024-04-29 12:39 | Hospitalist Progress Note ---
Date of Service April 29, 2024 Assessment & Plan (1) Closed left hip fracture: Plan: Presented with left hip pain after ground-level mechanical fall at her assisted living facility. - X-ray on arrival showed acute displaced intertrochanteric fracture of the left femur; Age-related osteoporosis with current pathological fracture, left femur - Ortho consulted > Status post left intertrochanteric femur fracture closed reduction and internal fixation on 04/23/[address] Cavanaugh > Outpatient follow-up with ortho 2 weeks postop - Acute blood loss anemia secondary to surgical intervention (done without holding Eliquis) > Consented for blood transfusion. Transfused 1 unit PRBC on 04/27 > Hgb augmented appropriately post-transfusion, stable at 8.7 - Positive Hemeoccult stool study 04/27 - per RN, BM had small amount of blood noted, but was brown > Continue Protonix BID and Carafate QID > concern for hemorroidal bleed - treat with SC hydrocortisone x 1 week - Eliquis initially resumed 04/25; however, held on 04/27 due to increased drainage from dressing site and Hemoccult positive stool study > Eliquis does take 48 hours to be fully excreted and risk of VTE in the next 1-2 days is pretty low fortunately > Will continue to monitor hemoglobin over next couple days on when to resume Eliquis - Pain regimen: Scheduled Tylenol 1000 mg Q8H, oxycodone 5 mg Q6H PRN for moderate-severe pain - Vit D low-normal at 30.2 -- on Vit D supplement at home, continue - Fall precautions - PT/OT recommending SNF rehab --> plan for discharge to [facility] when medically ready (2) Persistent atrial fibrillation: Plan: Chronic with variable rate control - Continue metoprolol, Eliquis held - A fib with RVR, rates in 120s on 04/25 -- s/p digoxin 250 mcg x2 doses - Patient has required multiple cardioversions in the past Cardiology consulted - IV dig 250 given 04/29, consider repeat dose 4 hrs after - continue metoprolol - consider additional blood products (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 No evidence of acute decompensation Heart healthy, low-salt diet Most recent echo 10/28/2023: EF 65-70%, no regional wall motion abnormalities (4) History of lumbar fusion: Plan: Recent lumbar interbody fusion on 03/09/[address] Acuña (5) Hypothyroidism: Plan: Continue Synthroid 100 mcg daily Plan Dispo: continued inpatient stay, trying to control Heart rates VTE PPx: Veronica cha, SCDs Discussed case with Dr. starkey Daughter updated at bedside 04/29 Admission and Anticipated Discharge Date Admission Date: April 23, 2024 Subjective Patient seen sititng up in the chair. Oriented to self and can recognize her daughter. Needs cueing to identify the hospital No acute complaints at this time asymptomatic from her afib denies pain in her hip, has ice pack in place Review of Systems Review of Systems: All systems reviewed & are unremarkable except as noted in Subjective Physical Exam Physical Exam: General: NAD, VS as above, sitting up in the chair Resp: normal respiratory effort, lungs clear to auscultation CV: afib rates 120s , no murmur, Abd:soft, non tender, no hepatosplenomegaly Extremities: Moves all extremities, left hip dressing c/d/i, able to wiggle toes distally Neuro: A&O x2, Results & Data Results & Data Vital Signs (Past 12 Hours) Vital Signs Temp Pulse Pulse Resp BP BP Pulse Ox 04/29/24 12:26 112 H 04/29/24 11:03 97.7 F 121 H 18 108/76 95 04/29/24 09:24 117 H 04/29/24 07:30 98.6 F 129 H 19 121/77 97 04/29/24 04:00 98.1 F 121 H 18 121/65 95 O2 Del Method 04/29/24 12:26 04/29/24 11:03 Room Air 04/29/24 09:24 04/29/24 07:30 Room Air 04/29/24 04:00 Room Air PG Care Time/CCT Total # of Minutes Spent Total Time Spent with Patient: Total time spent is greater than 50% in coordination of care (as documented) at patient's floor/unit and/or counseling patient: Coding Level of Care Code 48652 SUB INP/OBS CARE 3/50MIN Diagnoses Closed left hip fracture S72.002A Persistent atrial fibrillation I48.19 Heart failure with recovered ejection fraction (HFrecEF) I50.32 History of lumbar fusion Z98.1 Hypothyroidism E03.9
--- NOTE | 2024-04-29 14:55 | Cardiology Progress Note ---
Date of Service April 29, 2024 Assessment & Plan (1) Persistent atrial fibrillation: Plan: -Elevated ventricular response likely related to her anemia and hip discomfort. -Continue metoprolol to tartrate 150 mg twice daily -Would add intravenous digoxin 0.25 mg now, repeat in 4 hours if necessary. -May need additional blood products. (2) Heart failure with recovered ejection fraction (HFrecEF): Plan: -Compensated at this time. -Outpatient regimen includes losartan/hydrochlorothiazide, metoprolol succinate, and as needed Lasix. (3) Hypertension: Plan: -Adequate control currently. Admission and Anticipated Discharge Date Admission Date: April 23, 2024 Subjective The patient is resting comfortably at the bedside without complaints of chest pain, dyspnea, or palpitations. She is participating in physical therapy. Physical Exam Physical Exam: In general is well-developed well-nourished white female in no acute distress. HEENT exam is negative. Neck is supple with full carotid upstrokes. There are no carotid bruits. No jugular venous distention. There is no thyromegaly. Cardiovascular exam reveals an irregular rhythm with distant heart sounds. No obvious murmurs. Lungs are clear without rales, rhonchi or wheezes. Abdomen is soft and nontender without bruits. Extremities reveal intact radial artery pulses bilaterally. There is no peripheral edema. Results & Data Vital Signs (Past 12 Hours) Vital Signs Temp Pulse Pulse Resp BP BP Pulse Ox 04/29/24 12:26 112 H 04/29/24 11:03 36.5 C 121 H 18 108/76 95 04/29/24 09:24 117 H 04/29/24 07:30 37.0 C 129 H 19 121/77 97 04/29/24 04:00 36.7 C 121 H 18 121/65 95 O2 Del Method 04/29/24 12:26 04/29/24 11:03 Room Air 04/29/24 09:24 04/29/24 07:30 Room Air 04/29/24 04:00 Room Air Diagnostic Findings campus monitor notes atrial fibrillation with a ventricular response varying between 100-120 bpm. PG Care Time/CCT Total # of Minutes Spent Total Time Spent with Patient: Total time spent is greater than 50% in coordination of care (as documented) at patient's floor/unit and/or counseling patient: Coding Level of Care Code 25190 SUB INP/OBS CARE 50MIN Diagnoses Persistent atrial fibrillation I48.19 Heart failure with recovered ejection fraction (HFrecEF) I50.32 Hypertension I10
[2024-04-29] MEDS: HYDROCORTISONE ACETATE 25 MG SUPP PR SCH (16:38)
[2024-04-30 07:39] LABS: Hematocrit (blood only) 29.1 % (37.0-47.0); Hemoglobin 9.2 g/dl (12.0-16.0); Mean Corpuscular Hemoglobin 27.2 pg (25.0-34.0); Mean Corpuscular Hgb Conc 31.6 g/dL (32.0-36.0); Mean Corpuscular Volume 86.1 fL (80.0-100.0); Mean Platelet Volume 9.9 fL (9.4-12.4); Platelet Count 224 K/uL (130-400); RDW Coefficient of Variation 15.3 % (11.5-14.5); RDW Standard Deviation 47.4 fL (36.4-46.3); Red Blood Count 3.38 M/uL (4.20-5.40)
[2024-04-30 08:01] LABS: BUN Creatinine Ratio 18.9 (10-20); Calcium 8.6 mg/dl (8.6-10.3); Creatinine Clr Calc Pharmacy 38.1 ml/min; Magnesium 2.2 mg/dl (1.7-2.4); Potassium 4.3 mmol/L (3.5-5.1)
--- NOTE | 2024-04-30 08:58 | Orthopedic Progress Note ---
Date of Service April 30, 2024 Assessment & Plan (1) Closed intertrochanteric fracture of left femur: POD7 IMN for left intertrochanteric fracture. - WBAT and ROMAT. Continue to mobilize as able with assistance. - Chronic eliquis for VTE ppx - Continue at least daily dressing changes with hygeine - prefer light dressing until maulik removed. I did message nurse today for assistance with this las dressing that was on her was from 04/27. - Will continue to follow - tigertext Dr. Peter Cavanaugh or myself for orthopedic questions Dispo: OK for transition to next level of care from orthopedic perspective Subjective Operation Date: 04/23/24 12:00 Actual Procedures p Left intertrochanteric femur fracture closed reduction and internal fixation with long trochanteric fixation nail (Left) - Peter Cavanaugh MD Patient is postop day 7 from left intertrochanteric femur fracture closed reduction internal fixation. She is in the hospital due to medical comorbidities/following with cardiology and medical team. In regards to her hip fracture, wound check satisfactory. Continue daily dressing changes. Weightbearing as tolerated with assistance. She has no questions at today's visit. Review of Systems All systems reviewed & are unremarkable except as noted in HPI & below. Physical Exam General: Alert. No acute distress. Left hip: I did peel down the dressings for a wound check. Wound check satisfactory. Maulik are intact. No active drainage. Sensation intact. Distal pulses palpated. Cap refill less than 3 seconds. Results & Data Results & Data Laboratory Results . Diagnostic Findings . PG Care Time/CCT Total # of Minutes Spent Total Time Spent with Patient: Total time spent is greater than 50% in coordination of care (as documented) at patient's floor/unit and/or counseling patient: Coding Level of Care Code 44271 Post Operative Follow-Up Diagnoses Closed intertrochanteric fracture of left femur S72.142A
--- NOTE | 2024-04-30 14:47 | Discharge Summary ---
Discharge Summary Date of Service April 30, 2024 Principal Dx & Hospital Course #1 = Principal Diagnosis (1) Closed left hip fracture: Presented with left hip pain after ground-level mechanical fall at her assisted living facility. - X-ray on arrival showed acute displaced intertrochanteric fracture of the left femur; Age-related osteoporosis with current pathological fracture, left femur - Ortho consulted > Status post left intertrochanteric femur fracture closed reduction and internal fixation on 04/23/[address] Cavanaugh > Outpatient follow-up with ortho 2 weeks postop - Acute blood loss anemia secondary to surgical intervention > Consented for blood transfusion. Transfused 1 unit PRBC on 04/27 > Hgb augmented appropriately post-transfusion, stable at 8.7 - Positive Hemeoccult stool study 04/27 - per RN, BM had small amount of blood noted, but was brown > Continue Protonix daily and Carafate QID x7 days > concern for hemorrhoidal bleed - treat with UT hydrocortisone x 1 week - Eliquis resumed 04/30 - Pain regimen: prn tylenol and oxycodone - Vit D low-normal at 30.2 -- on Vit D supplement at home, continue - Fall precautions - PT/OT recommending SNF rehab --> discharge to [facility] today (2) Persistent atrial fibrillation: Chronic with variable rate control - Continue metoprolol, Eliquis - Patient has required multiple cardioversions in the past but quickly flips back into afib Rate improvement after two doses of IV Digoxin Cardiology consulted - start 0.125mg PO digoxin daily - continue metoprolol (3) 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 No evidence of acute decompensation Heart healthy, low-salt diet Most recent echo 10/28/2023: EF 65-70%, no regional wall motion abnormalities (4) History of lumbar fusion: Recent lumbar interbody fusion on 03/09/[address] Acuña (5) Hypothyroidism: Continue Synthroid 100 mcg daily Plan Dispo: discharge to [facility] today Discussed case with Dr. koch Daughter updated at bedside 04/29 and 04/30 Notes For Next Care Provider admitted with hip fx, flipped back in to afib. Started on digoxin PO - needs cardiology follow up Concern for hemorrhoidal bleeding - consider repeat CBC in 1-2 weeks, did require 1 unit of PRBCs post operatively Worsening confusion while here - no infectious cause seen. deliruim vs anesthia reaction? consider weaning gabapentin if continues after discharge Medication Changes From Visit Started on digoxin PO Admission HPI Per Admitting Provider Very pleasant 83-year-old female lives in assisted living facility. She states that she slept in today later than her usual time. Staff was wringing her doorbell. She tried to get up to answer her door with her walker she tripped over her walker falling onto her left side. She did not strike her head she has no other pain there is no loss of consciousness pre or post fall. She fell right onto her left hip region again and has no other pain with exception of left hip pain. She presented here to the ER for further evaluation and treatment. Was found to have a proximal left femur fracture. Orthopedics has been consulted through the ER currently awaiting a callback Dr. Isiah Rodriguez. We were called admit the patient for further evaluation and treatment. The patient does have chronic A- fib. She is on Eliquis twice daily. She has not had her morning Eliquis today. Her last Eliquis dose was on April 22, 2024 at approximately 8 to 9 PM. We will continue to hold Eliquis anticipating need for surgery. Will keep the patient n.p.o. until seen by orthopedics. Discharge Exam General: NAD, VS as above, sitting up in the chair Resp: normal respiratory effort, lungs clear to auscultation CV: afib rates 80a , no murmur, Abd:soft, non tender, no hepatosplenomegaly Extremities: Moves all extremities, left hip dressing c/d/i, able to wiggle toes distally Neuro: A&O x2, Discharge Plan Discharge Items Patient Disposition: Transfer [facility] Reason For Visit: FX HIP Discharge Diagnosis: Hip fracture Afib RVR Activity: As commented below Activity Comment: work with therapy to get stronger Driving/Machine Use: No further driving Weightbearing: Full weightbearing Non-emergency contact: Primary Care Provider, Surgeon and Washer Repairman Call non-emergency contact if: you have any medication questions, your symptoms worsen and your pain is not controlled Follow-up/Referrals: Gregorio Koch MD [Physician] - (Follow up within one month- afib RVR, st arted on dig ) Peter Cavanaugh MD [Surgeon] - () Latoya Beth MD [Primary Care Provider] - (Follow up 7-10 days ) Diet: Heart Healthy and Low Sodium (2gm) Addtl Attending Provider Instructions: Kari, Thom were hospitalized after having a fall at home resulting in a hip fracture. You had your hip repaired by Dr. Cavanaugh. During your hospital stay you flipped in to afib and had high rates, thankfully these have come down with the initiation of digoxin. This is a new oral medicine that you will take once a day and will be followed up on by Dr. Koch. There was also concern for hemorrhoidal bleeding - you will continue treatment for your hemorrhoids with a bowel regiment and hydrocortisone suppositories. Recommendations: * started on digoxin orally for afib. Continue daily, follow up with Dr. Koch * Work with therapy to get stronger * Scheduled Tylenol and prn oxycodone for pain. * Continue Eliquis * Bowel regiment for Hemorrhoids * Hydrocortisone suppositories for 5 more days * No further driving - encouraged family to keep keys/relocate car. Encouraged use of [facility] provided transportation. Patient having increased delirium and confusion while in the hospital. No infectious source found. Is able to be reoriented. Caution use of too many narcotics. Addtl Airfield Services Officer Provider Instructions: Orthopaedic Instructions after Hip Fracture Surgery: Please keep your wound clean and dry. Do not remove any of the zoe. Zoe were removed at your follow-up appointment with orthopedic surgery. Please continue daily dressing changes until your follow-up appointment. If there is no drainage onto the dressing for total of 24 hours, you may shower after 5 days from surgery. Allow soap and water to run over the incision, no scrubbing, and pat dry. Do not submerse (sitting in bathtub, hot tub, jacuzzi, pool, etc) the wound for at least 3 weeks. You may bear weight on your lower extremities as tolerated. Please use the walker or as instructed by physical therapy. For pain control please use Tylenol as needed. You may also have a stronger pain medication prescribed to you at discharge. You can also apply ice to the surgical site. To reduce the risk of dangerous blood clots please continue your previously prescribed apixaban. Orthopedic clinic follow-up should be in 2-3 weeks after surgery for repeat x- ray. Patillas can be removed at the orthopedic follow-up in 2-3 weeks. If necessary, zoe can be removed by a nurse at home or at a nursing facility upon our order. Please contact the clinic. Pending Studies at Discharge: No Stand-Alone Forms: My [facility] Skilled Items Patient informed of condition?: Yes DNR: No Discharge Level of Care: Acute rehab Communicable Disease: No Discharge Prognosis: Stable Lines: None Urinary Catheter: No Medications and DC Order Prescriptions: New polyethylene glycol 3350 [Miralax] 17 gram Powder In Packet 17 g PO DAILY 30 Days Qty: 30 0RF sucralfate 1 gram Tablet 1 g PO QID 7 Days Qty: 28 0RF hydrocortisone acetate [Anucort-HC] 25 mg Suppository 25 mg UT DAILY 5 Days Qty: 5 0RF pantoprazole 40 mg Tablet,Delayed Release (Dr/Ec) 40 mg PO QAM 30 Days Qty: 30 0RF digoxin [Digitek] 125 mcg (0.125 mg) Tablet 0.125 mg PO DAILY@1600 30 Days Qty: 30 0RF oxycodone 5 mg Tablet 5 mg PO Q6H PRN (Reason: pain) Qty: 10 0RF Continued Centrum Silver Women 8 mg iron-400 mcg-300 mcg tablet 1 tab PO QDL furosemide 40 mg tablet 40 mg PO DAILY PRN (Reason: edema in feet) Qty: 90 3RF Rx Instructions: Take 1 tablet daily until body weight at baseline and swelling minimal, then take only as needed tramadol 50 mg tablet 50 mg PO BID PRN (Reason: pain) Qty: 30 0RF Rx Instructions: In addition to the tramadol, take acetaminophen either regular strength or extra, 2 pills. Eliquis 5 mg tablet 5 mg PO BID Qty: 180 3RF clindamycin HCl 300 mg capsule 600 mg PO UD PRN (Reason: prior to dental procedure) Rx Instructions: 600 mg PO before dental procedures losartan-hydrochlorothiazide 50-12.5 mg tablet 1 tab PO QAM Qty: 90 0RF diclofenac sodium [Voltaren Arthritis Pain] 1 % gel 4 g topical QID Qty: 100 2RF Rx Instructions: apply to single knee, ankle, foot; for foot includes sole/toes/top of foot acetaminophen [Tylenol Arthritis Pain] 650 mg tablet extended release 650 mg PO UD PRN (Reason: Pain) Rx Instructions: 650 mg orally DIRECTED NEEDED FOR PAIN; Saccharomyces boulardii 50 mg Capsule 50 mg PO BID Glucosamine Complex-MSM Capsule 1 cap PO QDL omega-3 fatty acids 1,000 mg Capsule 2,000 mg PO QDL loratadine [Claritin] 10 mg Tablet 10 mg PO QAM famotidine 40 mg tablet 40 mg PO QAM cyanocobalamin (vitamin B-12) [Vitamin B-12] 1,000 mcg Tablet 1,000 mcg PO QDL fluticasone propionate 50 mcg/actuation Alicia,Suspension 2 spray INTRANASAL QAM Rx Instructions: administer into each nostril melatonin 5 mg Tablet 5 mg PO HS PRN (Reason: Sleep) calcium carbonate-vitamin D3 [Os-Glenn 500 + D3] 500 mg-15 mcg (600 unit) Tablet 1 tab PO QDL calcium glycerophosphate 130 mg PO UD PRN (Reason: When eating problem food) levothyroxine 100 mcg tablet 100 mcg PO DAILY gabapentin 300 mg capsule See Rx Instructions .ROUTE .COMPLEX Rx Instructions: Take 300mg by mouth daily x 4 days then 300mg bid x 4 days then 300mg tid x 4 days metoprolol tartrate 50 mg Tablet 150 mg PO BID Qty: 180 5RF Rx Instructions: may substitute higher dose per pill to make easier please give one month confirmed bid dose with cardiology PreserVision AREDS-2 250-90-40-1 mg Capsule 1 tab PO BID Cbd Cream 1 dose topical BID Rx Instructions: Unable to verify at this date/time. OTC med simvastatin 20 mg tablet 20 mg PO HS Rx Instructions: TAKE 1 TABLET BY MOUTH EVERY DAY IN THE EVENING potassium chloride 20 mEq tablet extended release 20 meq PO DAILY PRN (Reason: when taking lasix) Rx Instructions: Pharmacy shows this last filled in 05/2023 x30 day supply. Take 20meq by mouth every day that Furosemide is taken. docusate sodium 50 mg/5 mL Liquid 50 mg PO DAILY PRN (Reason: Constipation) Rx Instructions: Unable to verify OTC meds at this date/time. Discontinued hydrocodone-acetaminophen 5-325 mg tablet 1 tab PO BID PRN (Reason: pain) Discharge Orders: Discharge Order (Routine); Ordered 04/30/24 Ordered By: Tierra Medrano Admission Data Admit Date/Time: 04/23/24 13:09 Attending Provider: Clarissa Chong Admit Provider: Marc Ramirez Primary Care Provider: Latoya Beth Other Providers: Isiah Rodriguez; Zacarias Carlton Other Interventions: Discharge Summary Assessment (RN) Last Done: 04/30/24 15:24 Hospital Stay Data Consultations 04/23/24 13:09 Consult Orthopedic Surgery Routine 04/28/24 16:51 Consult Cardiology Routine Procedures Performed Operation Date: 04/23/24 12:00 Actual Procedures p Left Long Troch Nail(Left) - Peter Cavanaugh MD Diagnostic Imagining Performed Hip X-Ray 04/23/24 00:00 FL hip LT 2-3V CLINICAL HISTORY: L HIPacute fracture left proximal femur COMPARISON STUDY: Radiographs of same day FLUOROSCOPY TIME: 104.6 seconds FLUOROSCOPY IMAGES: 5 EXPOSURE DOSE: 23.14 mGy FINDINGS: Status post placement of intertrochanteric nail with medullary roque fixating the acute proximal left femoral fracture. There is improved near anatomic alignment. Expected postoperative soft tissue swelling with deep tissue air. Partially imaged knee arthroplasty. IMPRESSION: Fluoroscopic assistance as above. ACT 112: Negative or not required by law. Electronically signed by: Blaise Mccain M.D. 04/23/2024 6:59 PM Hip/Pelvis X-Ray 04/23/24 10:44 XR hip LT 2V w pelvis CLINICAL HISTORY: hip pain/preop COMPARISON: MRI of the left hip April 16, 2024. FINDINGS: Postoperative findings within the lumbar spine are partially imaged. There is an acute oblique intertrochanteric fracture of the left femur. Fracture is displaced 1.2 cm. Degenerative changes at the symphysis pubis pubis are present. No additional fractures are identified on this exam. Partial right femur is intact. IMPRESSION: Acute displaced intertrochanteric fracture of the left femur. ACT 112: Negative or not required by law. Electronically signed by: Norm Tineo M.D. 04/23/2024 12:14 PM Chest X-Ray 04/23/24 10:45 XR chest 1V not portable HISTORY: 83 years-old Female hip pain/preop preoperative exam COMPARISON: 04/16/2024 TECHNIQUE: AP view of the chest FINDINGS: Cardiac silhouette is enlarged. Right hemidiaphragmatic elevation. No pneumothorax, pleural effusion or airspace consolidation. Suggestion of calcified hilar lymph nodes. Surgical clips project over the right upper quadrant abdomen and left axilla. IMPRESSION: Cardiomegaly without acute process. ACT 112: Negative or not required by law. The above report was generated using voice recognition software. It may contain grammatical, syntax or spelling errors. Electronically signed by: Blaise Mccain M.D. 04/23/2024 12:08 PM Femur X-Ray 04/23/24 18:53 LEFT FEMUR 2 VIEWS CLINICAL HISTORY: Postoperative examination. FINDINGS: Portable AP and crosstable lateral views of the left femur are compared to study performed earlier the same day 04/23/2024. The skeletal structures are osteopenic. There has been intertrochanteric and intramedullary nail fixation of an intertrochanteric fracture of the left proximal femur. Near anatomic alignment is restored. A single cortical lag screw transfixes the distal end of the intramedullary nail. No new fracture is seen. Skin clips, soft tissue edema, and subcutaneous gas overlying the operative sites are expected postsurgical changes. The imaged left hemipelvis appears intact. Fusion hardware is noted at the lumbosacral junction. A left knee arthroplasty is in near anatomic alignment. IMPRESSION: Expected postoperative findings status post open reduction and internal fixation of a left femoral fracture. See above. Electronically signed by: Cristobal Dougherty M.D. 04/23/2024 10:16 PM Pending Results Patient Have Any Pending Studies at Discharge: No Discharge Instructions Given to Patient (Per Discharging Provider) Kari, You were hospitalized after having a fall at home resulting in a hip fracture. You had your hip repaired by Dr. Cavanaugh. During your hospital stay you flipped in to afib and had high rates, thankfully these have come down with the initiation of digoxin. This is a new oral medicine that you will take once a day and will be followed up on by Dr. Koch. There was also concern for hemorrhoidal bleeding - you will continue treatment for your hemorrhoids with a bowel regiment and hydrocortisone suppositories. Recommendations: * started on digoxin orally for afib. Continue daily, follow up with Dr. Koch * Work with therapy to get stronger * Scheduled Tylenol and prn oxycodone for pain. * Continue Eliquis * Bowel regiment for Hemorrhoids * Hydrocortisone suppositories for 5 more days * No further driving - encouraged family to keep keys/relocate car. Encouraged use of [facility] provided transportation. Patient having increased delirium and confusion while in the hospital. No infectious source found. Is able to be reoriented. Caution use of too many narcotics. Total Time Total Time Spent Total Time Spent (In Minutes): Time spent day of discharge 45 minutes including direct patient care, medication reconciliation, documentation, review of labs and images, and coordination of care. Coding Level of Care Code 93378 INP/OBS DISCH >30 MIN Diagnoses Closed left hip fracture S72.002A Persistent atrial fibrillation I48.19 Heart failure with recovered ejection fraction (HFrecEF) I50.32 History of lumbar fusion Z98.1 Hypothyroidism E03.9
[2024-04-30 15:36] VITALS: BP 111/70; RESP 16; TEMP 97.3; O2SAT 95
[2024-04-30] MEDS: DIGOXIN 0.125 MG TAB PO SCH (15:45)
[2024-04-30 15:59] VITALS: PULSE 95
== END 2024-04-30 16:46 | DRG 481 ==
LOC: ED 10:17 → EDINP 13:09 → SUATTDRO 13:09 → EDINP 16:18 → 4W 20:27
DX: D62 Acute posthemorrhagic anemia; Z88.1 Allergy status to other antibiotic agents; I50.32 Chronic diastolic (congestive) heart failure; Y92.009 Unspecified place in unspecified non-institutional (private) residence as the place of occurrence of the external cause; W01.0XXA Fall on same level from slipping, tripping and stumbling without subsequent striking against object, initial encounter; Z79.890 Hormone replacement therapy; Z98.1 Arthrodesis status; M80.052A Age-related osteoporosis with current pathological fracture, left femur, initial encounter for fracture; Z91.040 Latex allergy status; Z88.6 Allergy status to analgesic agent; E78.5 Hyperlipidemia, unspecified; Z79.01 Long term (current) use of anticoagulants; I48.19 Other persistent atrial fibrillation; R19.5 Other fecal abnormalities; I48.0 Paroxysmal atrial fibrillation; Z85.3 Personal history of malignant neoplasm of breast; I42.9 Cardiomyopathy, unspecified; E03.9 Hypothyroidism, unspecified; Z96.653 Presence of artificial knee joint, bilateral